=== PATIENT | male | born 1945 | race Caucasian/White ===

== ENCOUNTER 2017-05-20 06:00 | Day surgery (SDC) | payer MEDICARE ==
[2017-05-19 09:27] VITALS: BMI 31.9
[~2017-05-20 06:00] MED LIST: LACTATED RINGERS 1,000 ML IV SCH
[2017-05-20] MEDS: PHENYLEPHRINE 10% OPHTH DROPS 5 ML BTL OP ONE ×2 (06:25→06:33)
[2017-05-20 06:28] VITALS: RESP 16; TEMP 97
[2017-05-20] MEDS: CYCLOPENTOLATE 1% OPHTH SOLN 2 ML BTL OP ONE ×3 (06:28→06:45)
[2017-05-20] MEDS: KETOROLAC 0.5% OPHTH DROPS 5 ML BTL OP ONE ×3 (06:30→06:47)
[2017-05-20 06:39] LABS: Glucose,Whole Blood 144 mg/dL (75-99)
[2017-05-20] MEDS ORDERED: LIDOCAINE 1% 20 ML VIAL (10MG/ML) FOR IV START INTRADERMA ONE ×2 (06:41)
[2017-05-20] MEDS ORDERED: PROPOFOL 10 MG/ML 20 ML VIAL IV ONE (07:47)
[2017-05-20] MEDS ORDERED: BALANCED SALT IRRIG SOLN COMB2 15 ML IRRIG.SOLN INTRAOCULA ONE (07:48)
[2017-05-20] MEDS ORDERED: HYALURONATE SODIUM INTRAOCULAR 1 EACH SYRINGE (10MG/ML) INTRAOCULA ONE (07:49)
[2017-05-20] MEDS ORDERED: EPINEPHrine (PF) 0.5 ML in BALANCED SALT IRRIG SOLN COMB2 500 ML IRRIGATION ONE (07:50)
--- NOTE | 2017-05-20 08:18 | P.OP ---
Date of Procedure: 05/20/17 Procedure(s) Performed: PREOPERATIVE DIAGNOSIS: Cataract, left eye. POSTOPERATIVE DIAGNOSIS: Cataract, left eye. OPERATION: Phacoemulsification cataract, left eye. DESCRIPTION OF PROCEDURE: The patient was taken to the preoperative holding area. Intravenous Propofol was given so as to bring about adequate sedation. The following mixture was given for local anesthesia: 5 mL of 2% lidocaine, 5 mL of 0.75% Marcaine, and 1 mL of Wydase. Approximately 4 mL was injected in the retrobulbar space of the surgical eye. Additional 1 mL was then directed to the temporal area of the surgical eye. This was performed to allow adequate neurological block of the facial muscles. The patient was revived and then taken into the operative room. The patient was prepped and draped in the usual sterile manner for the operative eye. A lid speculum was put into position. The conjunctiva was resected back from the limbus in the 12 o'clock position. Bleeding was controlled with electrocautery. A #69 blade was then used and a half-thickness scleral incision approximately 1-mm posterior to the limbus was made on bare sclera. This was shelved in the clear cornea using a crescent knife. Next a 15-degree blade was used to make a stab incision at the 3 o' clock position at the corneolimbal interface. Keratome blade was then used and the superior wound was extended into the anterior chamber. Viscoelastic was injected into the anterior chamber and to maintain its form. Next, a cystotome was used and a continuous anterior capsulotomy was made without difficulty. Hydrodissection using a blunt cannula and BSS was performed. Phaco probe was then employed and a groove extending from 12 to 6 o'clock in the lens was created. A Leon wand was used through the stab incision so as to perform a divide and conquer technique. Next an irrigation aspiration probe was utilized and any residual cortex was removed from the eye. Again, viscoelastic was injected into the anterior chamber. An Domenic posterior chamber lens implant was placed in the cartridge and injected into the anterior chamber without difficulty. The [employer] Technologies[employer] hook was utilized to spin the lens into position and this was again performed without any difficulty. The irrigation and aspiration probe was again employed and any residual viscoelastic was removed from the eye. Then BSS was injected into the limbal stab incision and the anterior chamber re-inflated. The conjunctiva was reapproximated using electrocautery. One drop of 0.25% Timoptic was placed over the corneal along with TobraDex ophthalmic ointment. Two sterile patches and a Olivier eye shield were taped into position. The patient was transported to the recovery room in stable condition. Pathology: none sent Condition: stable Disposition: same day
[2017-05-20 08:21] LABS: Glucose,Whole Blood 137 mg/dL (75-99)
[2017-05-20 08:30] VITALS: BP 154/83; PULSE 56
[2017-05-20] MEDS ORDERED: TIMOLOL 0.5% OPHTH SOLN (PF) 0.2 ML DROPERETTE OP ONE (23:00)
[2017-05-20] MEDS ORDERED: GENTAMICIN/PREDNISOL AC OPHTH OINT 3.5GM OPHTHALMIC ONE (23:00)
[2017-05-20] MEDS ORDERED: BUPIVACAINE (PF) 0.75% 5 ML, LIDOCAINE 4% (PF) 5 ML, HYALURONIDASE, HUMAN RECOMB 150 UNIT MISCELLANE ONE ×3 (23:00)
== END 2017-05-20 08:51 | disposition home or self-care (01) ==
LOC: OR 06:00
PROVIDERS: ATTEND Ophthalmology
DX: E11.36 Type 2 diabetes mellitus with diabetic cataract (principal); I10 Essential (primary) hypertension; M06.9 Rheumatoid arthritis, unspecified; Z79.82 Long term (current) use of aspirin; Z79.84 Long term (current) use of oral hypoglycemic drugs; Z79.899 Other long term (current) drug therapy; Z83.3 Family history of diabetes mellitus
CPT/HCPCS: 66984; V2632; J2001; J3470; J0171; J2704

== ENCOUNTER → 2017-06-20 | Outpatient (CLI) | payer MEDICARE ==
--- NOTE | 2017-06-21 21:26 | MR ---
EXAMINATION TYPE: MR lumbar spine wo con DATE OF EXAM: 06/21/2017 COMPARISON: NONE HISTORY: Patient has history of low back pain for 2 years. M 53.16. TECHNIQUE: Multiplanar, multisequence images of the lumbar spine were acquired. The marrow signal is satisfactory but slightly heterogeneous. There is mild desiccation of all of the intervertebral discs. The conus ends at L1 which is normal. Vertebral body height and alignment are maintained. Lumbar segments are intact. No paraspinal masses are identified. Visualized soft tissue structures demonstrate an infrarenal abdominal aortic aneurysm which is not co mpletely visualized, and measures at least 3.3 cm in AP dimension. T12-L1: No central canal stenosis or neural foraminal narrowing is identified. L1-L2: There is minimal posterior disc bulge. No central canal stenosis or neural foraminal narrowing is identified. L2-L3: There is posterior disc bulge as well as endplate spurring. There is ligamentum flavum hypertr ophy. There is minimal facet hypertrophy. No central canal stenosis or foraminal narrowing is identif ied. L3-L4: There is posterior disc bulge. There is extensive ligamentum flavum hypertrophy. There is also facet hypertrophy. There is moderate right and minimal left neural foraminal narrowing. There is no central canal stenosis. L4-L5: There is ligamentum flavum as well as facet hypertrophy. There is impression upon the exiting right L4 nerve root. There is mild left neural foraminal narrowing. L5-S1: There is a posterior disc bulge with a superimposed central herniation. There is ligamentum fl avum hypertrophy as well as facet hypertrophy. There is impingement of the exiting left L5 nerve root . There is moderate foraminal narrowing on the right. IMPRESSION: Multilevel spondylosis is noted with several levels with foraminal narrowing.
== END | disposition home or self-care (01) ==
LOC: RADMRIMAIN 17:10
PROVIDERS: ATTEND Internal Medicine Rheumatology
DX: M99.73 Connective tissue and disc stenosis of intervertebral foramina of lumbar region (principal); M47.26 Other spondylosis with radiculopathy, lumbar region
CPT/HCPCS: 72148

== ENCOUNTER → 2017-07-03 | Outpatient (CLI) | payer MEDICARE ==
[2017-07-03 13:26] LABS: Blood Urea Nitrogen 21 mg/dL (9-20)
--- NOTE | 2017-07-04 08:40 | CT ---
EXAMINATION TYPE: CT angio abdomen DATE OF EXAM: 07/03/2017 COMPARISON: 06/17/2012 HISTORY: Follow up Abdominal aneurysm. CT DLP: 1480.5 mGycm, Automated Exposure Control for Dose Reduction was Utilized. CONTRAST: CT scan of the abdomen and pelvis is performed with oral and without and with IV Contrast, patient in jected with 80 mL of Visipaque 320. FINDINGS: LUNG BASES: Minimal lingular subsegmental atelectasis is appreciated. Prominent but nonenlarged media stinal lymph nodes are seen measuring up to 9 mm in the left hilum. Moderate three-vessel coronary ar regina calcifications are noted. LIVER/GB: Evaluation is slightly limited given the angiographic phase, however no arterial enhancing hepatic masses are seen. Hepatic parenchyma enhances homogeneously without intrahepatic biliary ducta l dilatation. Gallbladder is unremarkable without cholelithiasis. PANCREAS: No ductal dilatation is present. SPLEEN: No significant abnormality is seen. No splenomegaly. ADRENALS: There is a low-density 2.3 cm left adrenal gland benign lipid rich adenoma that measures a verage Hounsfield unit of 5 on the precontrast images. This is similar in comparison to the prior exa m of 2011. The right adrenal gland is unremarkable. KIDNEYS: Kidneys enhance symmetrically. No nephrolithiasis on the unenhanced images. BOWEL: Small descending duodenal diverticulum is present. Bowel is nondilated. Scattered colonic dive rticula are seen without pericolonic fat stranding. Moderate amount retained stool seen throughout th e colon. Appendix is retrocecal, air-filled and within normal limits of size. PROSTATE/SEMINAL VESICLES: Prostate gland is enlarged measuring 5.0 cm in transverse dimension. LYMPH NODES: No greater than 1cm abdominal or pelvic lymph nodes are appreciated. Solitary prominent 1.0 cm short axis peripancreatic lymph node is seen on series 6 image 29. OSSEOUS STRUCTURES: Well-circumscribed punctate right femoral head probable bone island is seen. Mode rate multilevel degenerative changes of the thoracic spine are noted. VASCULATURE: There is no evidence of intramural hematoma on the unenhanced images. There is an infrar enal abdominal aortic aneurysm that is fusiform originating approximately 3.0 cm from the origin of t he right renal artery (the lowest renal artery). Incidental note is made of 2 right renal arteries an d a singular left renal artery. This infrarenal aneurysm measures up to 4.8 x 4.6 x 5.7 cm in transve rse by anterior posterior by craniocaudal dimension and does not extend into the common iliac arterie s. Slight ectasia of the right common iliac artery is seen as it measures 1.7 cm. The left common leanne ac artery measures 1.2 cm. Moderate calcific and noncalcific atheromatous plaquing is seen of the ent irety of the abdominal aorta and its branches. No evidence of occlusion or contrast extravasation. Th is measured 4.4 x 3.8 cm on the exam of 06/17/2012. The celiac artery, SMA, and GRAYSON are patent despit e noncalcific atheromatous plaquing at the origin of the GRAYSON and series 6 image 48. IMPRESSION: 1. Interval increase in size of infrarenal fusiform abdominal aortic aneurysm in comparison to the mo st recent exam of 2011. Current measurements are 4.8 x 4.6 x 5.7 cm with previous measurement of 4.4 x 3.8 cm. No evidence of rupture, contrast extravasation, occlusion, or intramural hematoma. 2. Enlarged prostate gland. 3. 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 4. Moderate three-vessel coronary artery calcifications, a marker for coronary artery disease. 5. Sigmoid diverticulosis without evidence of diverticulitis.
== END | disposition home or self-care (01) ==
LOC: RADCTMAIN 12:48
PROVIDERS: ATTEND Thoracic Surgery (Cardiothoracic Vascular Surgery)
DX: I71.4 Abdominal aortic aneurysm, without rupture (principal); N40.0 Benign prostatic hyperplasia without lower urinary tract symptoms; K57.30 Diverticulosis of large intestine without perforation or abscess without bleeding; D35.02 Benign neoplasm of left adrenal gland
CPT/HCPCS: 82565; 84520; 74175; 36415; Q9967

== ENCOUNTER 2017-07-05 18:32 | Inpatient (IN) | payer MEDICARE ==
[2017-07-05] MEDS ORDERED: ONDANSETRON 4 MG/2 ML VIAL IVP STA (18:46)
[2017-07-05] MEDS ORDERED: ACETAMINOPHEN IV (For NPO) 1,000 MG in EMPTY BAG 1 BAG IVPB STA (18:53)
[2017-07-05] MEDS: SODIUM CHLORIDE 0.9% 500 ML IV SCH ×3 (18:58→21:00)
[2017-07-05 19:09] LABS: ALT 56 U/L (21-72); AST 38 U/L (17-59); Albumin 4.6 g/dL (3.5-5.0); Alkaline Phosphatase 73 U/L (38-126); Anion Gap 15 mmol/L; Blood Urea Nitrogen 18 mg/dL (9-20); Carbon Dioxide 21 mmol/L (22-30); Chloride 102 mmol/L (98-107); Glucose 210 mg/dL (74-99); Potassium 4.1 mmol/L (3.5-5.1); Sodium 138 mmol/L (137-145); Total Bilirubin 1.2 mg/dL (0.2-1.3); Total Protein 8.5 g/dL (6.3-8.2)
--- NOTE | 2017-07-05 19:10 | ED ---
Fever HPI - General Chief Complaint: Fever Stated Complaint: weakness Time Seen by Provider: 07/05/17 18:36 Source: patient, family, RN notes reviewed Mode of arrival: wheelchair Limitations: no limitations - History of Present Illness Initial Comments: This a 72-year-old male presents emergency Department chief complaint of fever chills nausea vomiting weakness. Patient states he is had a slight head cold last few days but today developed severe fatigue and weakness. He states that his been vomiting and having some diarrhea. Family states that is very lethargic and is not acting appropriately. Family states that they did not know he had a fever. Current temp 104 he has not had any Tylenol or Motrin. Patient does admit to some chest tightness and shortness of breath. Patient has a history of hypertension, diabetes. Patient has not checked his blood sugar recently. Patient also complains of epistaxis states that his been having on and off bleeding from his left nostril this was atraumatic - Related Data Home Medications Medication Instructions Recorded Confirmed Aspirin [Adult Low Dose Aspirin EC] 81 mg PO DAILY 05/19/17 07/05/17 Atenolol [Tenormin] 50 mg PO BID 05/19/17 07/05/17 Atorvastatin [Lipitor] 20 mg PO QAM 05/19/17 07/05/17 Etanercept [Enbrel] 50 mg SQ TU 05/19/17 07/05/17 Gabapentin [Neurontin] 300 mg PO QID 05/19/17 07/05/17 Insulin Glargine [Lantus] 20 unit SQ HS 05/19/17 07/05/17 Lisinopril [Zestril] 20 mg PO DAILY 05/19/17 07/05/17 metFORMIN HCL [Glucophage] 500 mg PO TID 05/19/17 07/05/17 glipiZIDE [Glucotrol] 5 mg PO AC-BRKFST 06/04/17 07/05/17 Allergies Allergy/AdvReac Type Severity Reaction Status Date / Time No Known Allergies Allergy Verified 07/05/17 18:57 Review of Systems ROS Statement: Those systems with pertinent positive or pertinent negative responses have been documented in the HPI. ROS Other: All systems not noted in ROS Statement are negative. Past Medical History Past Medical History: Diabetes Mellitus, Hyperlipidemia, Hypertension, Rheumatoid Arthritis (RA) Additional Past Medical History / Comment(s): aortic aneurysm History of Any Multi-Drug Resistant Organisms: None Reported Additional Past Surgical History / Comment(s): hemorrhoidectomy, surgeries for sebaceous cysts Past Anesthesia/Blood Transfusion Reactions: Motion Sickness Past Psychological History: No Psychological Hx Reported Smoking Status: Former smoker Past Alcohol Use History: None Reported Past Drug Use History: None Reported - Past Family History Son(s) Family Medical History: Cancer Additional Family Medical History / Comment(s): brain cancer Brother(s) Family Medical History: Cancer Additional Family Medical History / Comment(s): colon cancer Sister(s) Family Medical History: Cancer General Exam Limitations: no limitations General appearance: alert, in no apparent distress Head exam: Present: atraumatic, normocephalic, normal inspection Eye exam: Present: normal appearance, PERRL, EOMI. Absent: scleral icterus, conjunctival injection, periorbital swelling ENT exam: Present: normal oropharynx, mucous membranes moist, TM's normal bilaterally, normal external ear exam, other (Dry blood noted in the left nostril) Neck exam: Present: normal inspection, full ROM. Absent: tenderness, meningismus, lymphadenopathy Respiratory exam: Present: normal lung sounds bilaterally. Absent: respiratory distress, wheezes, rales, rhonchi, stridor Cardiovascular Exam: Present: normal rhythm, tachycardia, normal heart sounds. Absent: systolic murmur, diastolic murmur, rubs, gallop, clicks GI/Abdominal exam: Present: soft, normal bowel sounds. Absent: distended, tenderness, guarding, rebound, rigid Neurological exam: Present: alert, oriented X3, CN II-XII intact Skin exam: Present: warm, dry, intact, normal color. Absent: rash Course Vital Signs 07/05/17 07/05/17 07/05/17 18:44 19:36 19:48 Temperature 104.6 F H 103.1 F H Pulse Rate 109 H 94 Respiratory 20 16 Rate Blood Pressure 219/103 187/77 178/72 O2 Sat by Pulse 91 L 94 L Oximetry Medical Decision Making - Medical Decision Making 72-year-old male presented for fever, weakness. Patient is improved after IV fluids, antiemetics and Tylenol. Patient had fever 104, elevated lactic acid most likely related to dehydration patient was treated with Levaquin at this time for pneumonia. Patient will be admitted for repeat enzymes - Lab Data Result diagrams: 07/05/17 18:45 07/05/17 18:45 Lab Results 07/05/17 07/05/17 07/05/17 Range/Units 18:45 18:45 18:45 WBC 11.5 H (3.8-10.6) k/uL RBC 4.52 (4.30-5.90) m/uL Hgb 15.5 (13.0-17.5) gm/dL Hct 44.9 (39.0-53.0) % MCV 99.3 (80.0-100.0) fL MCH 34.2 (25.0-35.0) pg MCHC 34.5 (31.0-37.0) g/dL RDW 13.4 (11.5-15.5) % Plt Count 119 L (150-450) k/uL Neutrophils % (Manual) 82 % Band Neutrophils % 3 % Lymphocytes % (Manual) 7 % Monocytes % (Manual) 8 % Neutrophils # (Manual) 9.70 H (1.3-7.7) k/uL Lymphocytes # (Manual) 0.81 L (1.0-4.8) k/uL Monocytes # (Manual) 0.92 (0-1.0) k/uL Nucleated RBCs 0 (0-0) /100 WBC Manual Slide Review Performed RBC Morphology Normal PT (9.0-12.0) sec INR (<1.2) APTT (22.0-30.0) sec Sodium 138 (137-145) mmol/L Potassium 4.1 (3.5-5.1) mmol/L Chloride 102 (98-107) mmol/L Carbon Dioxide 21 L (22-30) mmol/L Anion Gap 15 mmol/L BUN 18 (9-20) mg/dL Creatinine 1.10 (0.66-1.25) mg/dL Est GFR (MDRD) Af Amer >60 (>60 ml/min/1.73 sqM) Est GFR (MDRD) Non-Af >60 (>60 ml/min/1.73 sqM) Glucose 210 H (74-99) mg/dL Plasma Lactic Acid Hernán (0.7-2.0) mmol/L Calcium 10.0 (8.4-10.2) mg/dL Total Bilirubin 1.2 (0.2-1.3) mg/dL AST 38 (17-59) U/L ALT 56 (21-72) U/L Alkaline Phosphatase 73 (38-126) U/L Total Creatine Kinase 97 (55-170) U/L CK-MB (CK-2) 1.3 (0.0-2.4) ng/mL CK-MB (CK-2) Rel Index 1.3 Troponin I 0.047 H* (0.000-0.034) ng/mL Total Protein 8.5 H (6.3-8.2) g/dL Albumin 4.6 (3.5-5.0) g/dL Urine Color Urine Appearance (Clear) Urine pH (5.0-8.0) Ur Specific [place] (1.001-1.035) Urine Protein (Negative) Urine Glucose (UA) (Negative) Urine Ketones (Negative) Urine Blood (Negative) Urine Nitrite (Negative) Urine Bilirubin (Negative) Urine Urobilinogen (<2.0) mg/dL Ur Leukocyte Esterase (Negative) Urine RBC (0-5) /hpf Urine WBC (0-5) /hpf Influenza Type A RNA (Not Detectd) Influenza Type B (PCR) (Not Detectd) 07/05/17 07/05/17 07/05/17 Range/Units 18:45 18:45 18:45 WBC (3.8-10.6) k/uL RBC (4.30-5.90) m/uL Hgb (13.0-17.5) gm/dL Hct (39.0-53.0) % MCV (80.0-100.0) fL MCH (25.0-35.0) pg MCHC (31.0-37.0) g/dL RDW (11.5-15.5) % Plt Count (150-450) k/uL Neutrophils % (Manual) % Band Neutrophils % % Lymphocytes % (Manual) % Monocytes % (Manual) % Neutrophils # (Manual) (1.3-7.7) k/uL Lymphocytes # (Manual) (1.0-4.8) k/uL Monocytes # (Manual) (0-1.0) k/uL Nucleated RBCs (0-0) /100 WBC Manual Slide Review RBC Morphology PT 10.8 (9.0-12.0) sec INR 1.1 (<1.2) APTT 23.8 (22.0-30.0) sec Sodium (137-145) mmol/L Potassium (3.5-5.1) mmol/L Chloride (98-107) mmol/L Carbon Dioxide (22-30) mmol/L Anion Gap mmol/L BUN (9-20) mg/dL Creatinine (0.66-1.25) mg/dL Est GFR (MDRD) Af Amer (>60 ml/min/1.73 sqM) Est GFR (MDRD) Non-Af (>60 ml/min/1.73 sqM) Glucose (74-99) mg/dL Plasma Lactic Acid Hernán 3.3 H* (0.7-2.0) mmol/L Calcium (8.4-10.2) mg/dL Total Bilirubin (0.2-1.3) mg/dL AST (17-59) U/L ALT (21-72) U/L Alkaline Phosphatase (38-126) U/L Total Creatine Kinase (55-170) U/L CK-MB (CK-2) (0.0-2.4) ng/mL CK-MB (CK-2) Rel Index Troponin I (0.000-0.034) ng/mL Total Protein (6.3-8.2) g/dL Albumin (3.5-5.0) g/dL Urine Color Urine Appearance (Clear) Urine pH (5.0-8.0) Ur Specific [place] (1.001-1.035) Urine Protein (Negative) Urine Glucose (UA) (Negative) Urine Ketones (Negative) Urine Blood (Negative) Urine Nitrite (Negative) Urine Bilirubin (Negative) Urine Urobilinogen (<2.0) mg/dL Ur Leukocyte Esterase (Negative) Urine RBC (0-5) /hpf Urine WBC (0-5) /hpf Influenza Type A RNA Not Detected (Not Detectd) Influenza Type B (PCR) Not Detected (Not Detectd) 07/05/17 Range/Units 19:00 WBC (3.8-10.6) k/uL RBC (4.30-5.90) m/uL Hgb (13.0-17.5) gm/dL Hct (39.0-53.0) % MCV (80.0-100.0) fL MCH (25.0-35.0) pg MCHC (31.0-37.0) g/dL RDW (11.5-15.5) % Plt Count (150-450) k/uL Neutrophils % (Manual) % Band Neutrophils % % Lymphocytes % (Manual) % Monocytes % (Manual) % Neutrophils # (Manual) (1.3-7.7) k/uL Lymphocytes # (Manual) (1.0-4.8) k/uL Monocytes # (Manual) (0-1.0) k/uL Nucleated RBCs (0-0) /100 WBC Manual Slide Review RBC Morphology PT (9.0-12.0) sec INR (<1.2) APTT (22.0-30.0) sec Sodium (137-145) mmol/L Potassium (3.5-5.1) mmol/L Chloride (98-107) mmol/L Carbon Dioxide (22-30) mmol/L Anion Gap mmol/L BUN (9-20) mg/dL Creatinine (0.66-1.25) mg/dL Est GFR (MDRD) Af Amer (>60 ml/min/1.73 sqM) Est GFR (MDRD) Non-Af (>60 ml/min/1.73 sqM) Glucose (74-99) mg/dL Plasma Lactic Acid Hernán (0.7-2.0) mmol/L Calcium (8.4-10.2) mg/dL Total Bilirubin (0.2-1.3) mg/dL AST (17-59) U/L ALT (21-72) U/L Alkaline Phosphatase (38-126) U/L Total Creatine Kinase (55-170) U/L CK-MB (CK-2) (0.0-2.4) ng/mL CK-MB (CK-2) Rel Index Troponin I (0.000-0.034) ng/mL Total Protein (6.3-8.2) g/dL Albumin (3.5-5.0) g/dL Urine Color Yellow Urine Appearance Clear (Clear) Urine pH 6.5 (5.0-8.0) Ur Specific [place] 1.014 (1.001-1.035) Urine Protein 2+ H (Negative) Urine Glucose (UA) 3+ H (Negative) Urine Ketones Trace H (Negative) Urine Blood Small H (Negative) Urine Nitrite Negative (Negative) Urine Bilirubin Negative (Negative) Urine Urobilinogen <2.0 (<2.0) mg/dL Ur Leukocyte Esterase Negative (Negative) Urine RBC 3 (0-5) /hpf Urine WBC <1 (0-5) /hpf Influenza Type A RNA (Not Detectd) Influenza Type B (PCR) (Not Detectd) Disposition Clinical Impression: Pneumonia, Fever, Nausea & vomiting, Weakness, Elevated troponin Disposition: ADMITTED IP TO THIS HOSP Condition: Fair Referrals: Karl Pike DO [Primary Care Provider] - 1-2 days
[2017-07-05 19:11] LABS: Appearance,Urine Clear (Clear); Bilirubin,Urine Negative (Negative); Blood,Urine Small (Negative); Color,Urine Yellow; Glucose,Urine (UA) 3+ (Negative); Ketones,Urine Trace (Negative); Leukocyte Esterase,Urine Negative (Negative); Nitrite,Urine Negative (Negative); PH, Urine 6.5 (5.0-8.0); Protein,Urine 2+ (Negative); RBC,Urine 3 /hpf (0-5); Specific Gravity,Urine 1.014 (1.001-1.035); Urobilinogen,Urine <2.0 mg/dL (<2.0); WBC,Urine <1 /hpf (0-5)
[2017-07-05] MEDS ORDERED: hydrALAZINE HCL 20 MG/ML 1 ML VIAL IVP STA (19:14)
[2017-07-05 19:16] LABS: INR 1.1 (<1.2); Partial Thromboplastin Time 23.8 sec (22.0-30.0); Prothrombin Time 10.8 sec (9.0-12.0)
[2017-07-05 19:18] LABS: HCT 44.9 % (39.0-53.0); HGB 15.5 gm/dL (13.0-17.5); MCH 34.2 pg (25.0-35.0); MCHC 34.5 g/dL (31.0-37.0); MCV 99.3 fL (80.0-100.0); Mean Platelet Volume 7.8; Platelet Count 119 k/uL (150-450); RBC 4.52 m/uL (4.30-5.90); RDW 13.4 % (11.5-15.5); WBC 11.5 k/uL (3.8-10.6)
[2017-07-05 19:25] LABS: Creatine Kinase MB 1.3 ng/mL (0.0-2.4)
[2017-07-05 19:26] LABS: Troponin I 0.047 ng/mL (0.000-0.034)
[2017-07-05 19:31] LABS: Band Neutrophils % 3 %; Lymphocytes # (M) 0.81 k/uL (1.0-4.8); Monocytes # (M) 0.92 k/uL (0-1.0); Neutrophils % (M) 82 %; Nucleated Red Blood Cells 0 /100 WBC (0-0); Total Cells Counted 100
--- NOTE | 2017-07-05 19:36 | XR ---
EXAMINATION TYPE: XR chest 2V DATE OF EXAM: 07/05/2017 COMPARISON: NONE HISTORY: Weakness and vomiting. TECHNIQUE: Frontal and lateral views of the chest are obtained. FINDINGS: There is chronic parenchymal change without suspicious focal air space opacity, pleural ef fusion, or pneumothorax seen. There is suspected pleural thickening lower left lateral chest wall Th e cardiac silhouette size is enlarged. The osseous structures are intact. IMPRESSION: Chronic parenchymal change and cardiomegaly without acute pulmonary process.
--- NOTE | 2017-07-05 19:38 | XR ---
EXAMINATION TYPE: XR KUB DATE OF EXAM: 07/05/2017 7:33 PM CLINICAL HISTORY: Vomiting and weakness with diarrhea TECHNIQUE: Two Upright KUB images of the abdomen are obtained. COMPARISON: CTA of the abdomen from 2 days ago. FINDINGS: Scattered gas is seen in non-distended small bowel loops. Gas and fecal material is seen in non-distended colon and rectum. There is no visceromegaly, pneumoperitoneum, or abnormal calcificati on appreciated. Moderate joint space loss in both hips is redemonstrated. IMPRESSION: Overall nonobstructive bowel gas pattern remains present.
[2017-07-05] MEDS ORDERED: LEVOFLOXACIN 750MG-D5W PMX 750 MG in DEXTROSE/WATER 1 150ML.BAG IVPB STA (19:56)
[2017-07-05] MEDS ORDERED: PNEUMONIA PROTOCOL UTILIZED 1 EACH MISC PO PRN (19:58)
[2017-07-05] MEDS ORDERED: NITROGLYCERIN SL TABS 0.4 MG TAB SUBLINGUAL PRN (19:58)
[2017-07-05] MEDS: SODIUM CHLORIDE 0.9% 1,000 ML IV SCH (20:14)
[2017-07-05] MEDS ORDERED: PIPERACILLIN-TAZOBACTAM 3.375 GM in DEXTROSE/WATER 1 50ML.BAG IVPB STA (20:52)
[2017-07-05] MEDS ORDERED: HYDROcodone/APAP 5-325MG 1 EACH TAB PO STA (21:53)
[2017-07-05] MEDS ORDERED: MORPHINE SULFATE 5 MG/ML SYRINGE IVP STA (22:25)
[2017-07-05 23:26] LABS: Hemoglobin A1C 7.2 % (4.0-6.0)
[2017-07-05] MEDS: metFORMIN 500 MG TAB PO SCH (23:30)
[2017-07-05] MEDS: INSULIN DETEMIR 100 UNIT/ML 10 ML VIAL SQ SCH (23:30)
[2017-07-05 23:39] LABS: Glucose,Whole Blood 178 mg/dL (75-99)
[2017-07-06 02:05] LABS: Creatine Kinase MB 2.3 ng/mL (0.0-2.4)
[2017-07-06 02:06] LABS: Troponin I 0.143 ng/mL (0.000-0.034)
--- NOTE | 2017-07-06 06:44 | XR ---
EXAMINATION TYPE: XR chest 2V DATE OF EXAM: 07/06/2017 HISTORY: pneumonia. REFERENCE: Previous study dated 07/05/2017. FINDINGS: The lungs are overinflated. The heart is enlarged. The lungs are clear. Pleural spaces are clear. IMPRESSION: 1. COPD. 2. CARDIOMEGALY.
[2017-07-06 07:39] LABS: Cholesterol 94 mg/dL (<200); HDL Cholesterol 27 mg/dL (40-60); LDL Cholesterol,Calculated 47 mg/dL (0-99); Triglycerides 102 mg/dL (<150)
[2017-07-06 07:55] LABS: Troponin I 0.344 ng/mL (0.000-0.034)
[2017-07-06] MEDS: GABAPENTIN 300 MG CAP PO SCH ×4 (08:25→21:06)
[2017-07-06] MEDS: SODIUM CHLORIDE 0.9% 1,000 ML IV SCH ×2 (08:25→18:38)
[2017-07-06] MEDS: ASPIRIN 81 MG PO SCH (08:25)
[2017-07-06] MEDS: ATENOLOL 50 MG TAB PO SCH ×2 (08:26→21:06)
[2017-07-06] MEDS: metFORMIN 500 MG TAB PO SCH ×3 (08:26→21:06)
[2017-07-06] MEDS: LISINOPRIL 20 MG TAB PO SCH (08:27)
[2017-07-06] MEDS: ENOXAPARIN 40 MG/0.4 ML SYRINGE SQ SCH (08:27)
[2017-07-06] MEDS: ATORVASTATIN 20 MG TAB PO SCH (08:27)
[2017-07-06] MEDS: PIPERACILLIN-TAZOBACTAM 3.375 GM in DEXTROSE/WATER 1 50ML.BAG IVPB SCH ×2 (08:32→18:33)
[2017-07-06 08:51] LABS: Glucose,Whole Blood 154 mg/dL (75-99)
[2017-07-06] MEDS ORDERED: ASPIRIN 325 MG TAB PO SCH (09:00)
[2017-07-06] MEDS ORDERED: LEVOFLOXACIN 750MG-D5W PMX 750 MG in DEXTROSE/WATER 1 150ML.BAG IVPB SCH (09:00)
[2017-07-06] MEDS: ACETAMINOPHEN TAB 500 MG TAB PO PRN ×2 (14:01→21:06)
[2017-07-06 15:51] VITALS: BMI 31.7
[2017-07-06] MEDS ORDERED: VANCOMYCIN IV PER PHARMACY 1 EACH MISC MISCELLANE PRN (18:42)
--- NOTE | 2017-07-06 19:59 | CT ---
EXAMINATION TYPE: CT lumbar spine wo con DATE OF EXAM: 07/06/2017 COMPARISON: MRI lumbar spine June 20, 2017 HISTORY: Patient complains of RUQ and back pain. CT DLP: 1400.9 mGycm Automated exposure control for dose reduction was used. FINDINGS: There are 5 lumbar type vertebra identified. Lumbar spine redemonstrate straightened alignment withou t evidence of acute fracture or dislocation. Vertebral body heights are maintained. There is mild mul tilevel disc space narrowing. There is more moderate multilevel anterior and lateral spurring. No lar ge posterior disc herniations are seen on sagittal images. Please refer to recent lumbar spine MRI for detailed axial evaluation as MRI is more sensitive. No si gnificant change is noted from MRI. Aneurysmal change to abdominal aorta is noted without significant change from recent CTA abdomen [place] [facility] 2017. Please refer to that report. There is partial visualization of diverticula in the sigmoi d colon. IMPRESSION: NO ACUTE FRACTURE OR DISLOCATION IN THE LUMBAR SPINE. NO SIGNIFICANT CHANGE FROM RECENT MRI.
[2017-07-06] MEDS ORDERED: VANCOMYCIN 1,750 MG in SODIUM CHLORIDE 0.9% 250 ML IVPB ONE (20:00)
[2017-07-06 20:58] LABS: Glucose,Whole Blood 100 mg/dL (75-99)
[2017-07-06] MEDS: INSULIN DETEMIR 100 UNIT/ML 10 ML VIAL SQ SCH (21:08)
[2017-07-06] MEDS: IPRATROPIUM-ALBUTEROL 3 ML NEB INHALATION PRN (21:10)
--- NOTE | 2017-07-06 23:33 | HP ---
HISTORY AND PHYSICAL DATE OF ADMISSION: 07/05/17. PRESENTING COMPLAINT: Fever, chills. HISTORY OF PRESENTING COMPLAINT: This is a very pleasant 72-year-old patient of Dr. Pike. The patient's and daughter at the bedside. Chronic stable medical conditions include diabetes, hyperlipidemia, hypertension, rheumatoid arthritis, and AAA. The latter is being followed by Dr. Gutierrez. The patient had a CT scan 3 days ago showing the AAA to be up to 5 cm per family. The patient 3-4 days ago started having chills. Got a cough, coughing some red sputum. Did also vomit. The patient also became delirious, weak, tired, took a fall at home. The patient has got chronic lower back arthritis and pain has flared up. There is no urinary frequency or burning in the urine. The patient does feel weak and tired. Appetite has gone down. The patient had a fever 104 when he presented to the ER. REVIEW OF SYSTEMS: Constitutional: Weak, tired, febrile. HEENT none. Respiratory as above including cough. Cardiovascular none. Gastrointestinal none. Genitourinary none. Musculoskeletal: Chronic lower back pain with some flare up. Dermatological, hematologic and lymphatic none. Psychiatry: Delirious at home. Neurological none. PAST MEDICAL HISTORY: Diabetes mellitus type 2, hypertension, hyperlipidemia, rheumatoid arthritis, abdominal aortic aneurysm. PAST SURGICAL HISTORY: Hemorrhoidectomy surgery . SOCIAL HISTORY: The patient smoked a pack a day for 40 years, stopped 22 years ago. . 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 FAMILY HISTORY: Brain cancer. HOME MEDICATIONS: 1. Glucophage 500 mg p.o. t.i.d. 2. Glucotrol 5 mg with breakfast. 3. Zestril 20 mg p.o. daily. 4. Lantus 20 units subcu q.h.s. 5. Neurontin 300 mg p.o. q.i.d. 6. Enbrel 50 mg subcu on Tuesdays. 7. Lipitor 20 mg p.o. daily. 8. Tenormin 50 mg p.o. b.i.d. 9. Aspirin 81 mg p.o. daily. PHYSICAL EXAMINATION: GENERAL APPEARANCE: Well built, BMI 31.7, sitting up, tired appearing. EYES: Pupils equal. Conjunctivae are normal. HEENT external appearance of nose and ears normal. Oral cavity normal. Neck JVD not raised. Mass not palpable. Respiratory effort: Increased. Lungs diminished breath sounds. Cardiovascular: 1st and 2nd sounds normal. No edema. Abdomen soft, minimal right-sided tenderness. No guarding. No rigidity. Lymphatics: No lymph nodes palpable in neck or axillae. PSYCHIATRY: Patient able to answer simple questions but slightly off. Musculoskeletal: Patient got some tenderness over the lower lumbar spine, though no exquisite tenderness. Patient is noted to sit up on his own with some help at the edge of the bed. Neurological: Pupils equal. Cranial nerves grossly intact. Power and sensation grossly intact. INVESTIGATIONS: White count 11.5, hemoglobin 15.5, platelets 119, potassium 4.1, BUN and creatinine is normal. Lactic acid 3.3. Troponin 0.047, 0.143. EKG shows right bundle branch block. Chest x-ray reviewed by me shows left lower lobe infiltrate. Influenza negative. UA negative for leukoesterase. ASSESSMENT: 1. This is a patient with 3-4 days of fever up to 104 in the ER. Causing sepsis, most likely the cause. Also having some coughing up a little bit of blood, likely from infection. I would also like to rule out diskitis because of some tenderness in the lumbar spine. 2. Diabetes mellitus type 2, chronically on insulin. 3. Hyperlipidemia. 4. Essential hypertension. 5. Chronic rheumatoid arthritis. 6. Abdominal aortic aneurysm with the latest measurement being 4.8 x 4.6 x 5.7 cm. 7. Sigmoid diverticulitis, asymptomatic. 8. Benign prostatic hypertrophy on CT scan. 9. Troponin leak, likely from underlying sepsis, not acute myocardial infarction. Patient has no cardiac symptoms. PLAN: Patient is started on IV Zosyn. Blood cultures were done. We will also add IV vancomycin. We will consult ID. Also Dr. Gutierrez from vascular will be consulted. Care was discussed with the patient and . The patient is also put on IV fluids. Home medications resumed. Accu-Cheks will be followed. Care was discussed in detail with the patient and family. Also do a CT scan of the lumbar spine to rule out any diskitis. MMODL / IJN: [id number] /
[2017-07-07] MEDS: PIPERACILLIN-TAZOBACTAM 3.375 GM in DEXTROSE/WATER 1 50ML.BAG IVPB SCH ×3 (00:30→15:32)
[2017-07-07] MEDS: SODIUM CHLORIDE 0.9% 1,000 ML IV SCH ×3 (01:51→22:24)
[2017-07-07 02:54] LABS: Glucose,Whole Blood 79 mg/dL (75-99)
[2017-07-07] MEDS: ACETAMINOPHEN TAB 500 MG TAB PO PRN ×2 (03:55→15:28)
[2017-07-07] MEDS: VANCOMYCIN 1,750 MG in SODIUM CHLORIDE 0.9% 250 ML IVPB SCH (05:52)
[2017-07-07 06:07] LABS: Glucose,Whole Blood 115 mg/dL (75-99)
[2017-07-07 07:07] LABS: Anion Gap 11 mmol/L; Blood Urea Nitrogen 22 mg/dL (9-20); Calcium 8.9 mg/dL (8.4-10.2); Carbon Dioxide 21 mmol/L (22-30); Chloride 105 mmol/L (98-107); Glucose 108 mg/dL (74-99); Potassium 4.1 mmol/L (3.5-5.1); Sodium 137 mmol/L (137-145)
[2017-07-07] MEDS: IPRATROPIUM-ALBUTEROL 3 ML NEB INHALATION PRN ×3 (07:45→16:11)
[2017-07-07 08:03] LABS: HCT 36.2 % (39.0-53.0); MCH 34.1 pg (25.0-35.0); MCHC 33.7 g/dL (31.0-37.0); MCV 101.1 fL (80.0-100.0); Macrocytosis Slight; Mean Platelet Volume 8.3; RBC 3.58 m/uL (4.30-5.90); RDW 13.9 % (11.5-15.5); WBC 8.9 k/uL (3.8-10.6)
[2017-07-07 08:16] LABS: HGB 12.2 gm/dL (13.0-17.5)
[2017-07-07 08:38] LABS: Creatine Kinase MB 2.8 ng/mL (0.0-2.4)
[2017-07-07] MEDS: GABAPENTIN 300 MG CAP PO SCH ×4 (08:46→22:24)
[2017-07-07] MEDS: metFORMIN 500 MG TAB PO SCH ×3 (08:46→22:13)
[2017-07-07] MEDS: ASPIRIN 81 MG PO SCH (08:46)
[2017-07-07] MEDS: ATORVASTATIN 20 MG TAB PO SCH (08:46)
[2017-07-07] MEDS: ATENOLOL 50 MG TAB PO SCH ×2 (08:46→22:13)
[2017-07-07] MEDS: LISINOPRIL 20 MG TAB PO SCH (08:46)
[2017-07-07] MEDS: ENOXAPARIN 40 MG/0.4 ML SYRINGE SQ SCH (08:46)
--- NOTE | 2017-07-07 10:21 | ECHOF ---
Referral Reason:elevated trop MEASUREMENTS -------- HEIGHT: 175.3 cm WEIGHT: 95.7 kg BP: 161/88 RVIDd: 3.6 cm (< 3.3) IVSd: 1.6 cm (0.6 - 1.1) LVIDd: 4.4 cm (3.9 - 5.3) LVPWd: 1.3 cm (0.6 - 1.1) IVSs: 1.9 cm LVIDs: 2.9 cm LVPWs: 2.2 cm LAESV Index (A-L): 23.78 ml/m Ao Diam: 3.7 cm (2.0 - 3.7) AV Cusp: 2.4 cm (1.5 - 2.6) LA Diam: 3.8 cm (2.7 - 3.8) MV EXCURSION: 18.048 mm (> 18.000) MV EF SLOPE: 97 mm/s (70 - 150) EPSS: 1.0 cm MV E Gustavo: 0.98 m/s MV DecT: 133 ms MV A Gustavo: 1.09 m/s MV E/A Ratio: 0.91 RAP: 5.00 mmHg RVSP: 9.56 mmHg FINDINGS -------- Sinus rhythm. This was a technically good study. The left ventricular size is normal. There is moderate concentric left ventricular hypertrophy. O verall left ventricular systolic function is normal with, an EF between 55 - 60 %. The right ventricle is mildly enlarged. The left atrium is normal in size. The right atrium is normal in size. Aortic valve is trileaflet and is mildly thickened. The mitral valve leaflets are mildly thickened. Mild mitral regurgitation is present. Mild tricuspid regurgitation present. The right ventricular systolic pressure, as measured by Doppl er, is 9.56mmHg. Pulmonic valve appears structurally normal. The aortic root size is normal. Normal inferior vena cava with normal inspiratory collapse consistent with estimated right atrial pre ssure of 5 mmHg. The pericardium is normal. CONCLUSIONS -------- 1. Sinus rhythm. 2. This was a technically good study. 3. The left ventricular size is normal. 4. There is moderate concentric left ventricular hypertrophy. 5. Overall left ventricular systolic function is normal with, an EF between 55 - 60 %. 6. The right ventricle is mildly enlarged. 7. The left atrium is normal in size. 8. The right atrium is normal in size. 9. Aortic valve is trileaflet and is mildly thickened. 10. The mitral valve leaflets are mildly thickened. 11. Mild mitral regurgitation is present. 12. Mild tricuspid regurgitation present. 13. The right ventricular systolic pressure, as measured by Doppler, is 9.56mmHg. 14. Pulmonic valve appears structurally normal. 15. The aortic root size is normal. 16. Normal inferior vena cava with normal inspiratory collapse consistent with estimated right atrial pressure of 5 mmHg. 17. The pericardium is normal. FILTER FILLER: Trina Meier RDCS
[2017-07-07 11:09] LABS: Band Neutrophils % 1 %; Monocytes # (M) 0.53 k/uL (0-1.0); Neutrophils % (M) 84 %; Nucleated Red Blood Cells 0 /100 WBC (0-0); Total Cells Counted 100
[2017-07-07 11:10] LABS: Platelet Count 79 k/uL (150-450)
[2017-07-07 11:11] LABS: Poikilocytosis (M) Present
[2017-07-07 11:28] LABS: Glucose,Whole Blood 88 mg/dL (75-99)
[2017-07-07] MEDS: POLYETHYLENE GLYCOL 3350 17 GM POWD.PACK PO SCH (11:29)
[2017-07-07] MEDS: SENNOSIDES 8.6 MG TAB PO SCH ×2 (11:29→22:13)
--- NOTE | 2017-07-07 13:48 | P.GSCN ---
History of Present Illness Consult date: 07/07/17 Reason for Consult: Abdominal aortic aneurysm, surgical recommendations. Requesting physician: Aries Vincent History of present illness: This 72-year-old gentleman who is a patient of Dr. Pike and has a previous medical history of insulin-dependent diabetes, hyperlipidemia, hypertension, rheumatoid arthritis, abdominal aortic aneurysm, and previous tobacco dependence presented to the emergency room with complaints of chills, fever, productive cough, increasing weakness and tiredness for the prior 3-4 days. In the emergency room he had a temperature of 104.6 Fahrenheit, elevated white blood cell count 11.5, and an elevated lactic acid of 3.3. He was admitted for sepsis and probable pneumonia and has received IV Zosyn and vancomycin. This gentleman has been followed with Dr. Gutierrez for the previous 2 years related to his abdominal aortic aneurysm, most recently he saw Dr. Gutierrez in the office in May 2017 when in ultrasound evaluation of his abdominal aorta demonstrated increased size from previous studies, patient had a CT angiogram on July 03 and was to follow in Dr. Gutierrez's office tomorrow July 08 for future treatment recommendations. Due to his current hospitalized state Dr. Gutierrez was consulted for recommendations regarding the patient's AAA. Review of Systems 14 point review systems was completed and was negative except as noted. - Constitutional Reports as per HPI, Reports chills, Reports fatigue, Reports fever, Reports lethargy, Reports weakness Past Medical History Past Medical History: Diabetes Mellitus, Hyperlipidemia, Hypertension, Rheumatoid Arthritis (RA) Additional Past Medical History / Comment(s): aortic aneurysm History of Any Multi-Drug Resistant Organisms: None Reported Additional Past Surgical History / Comment(s): hemorrhoidectomy, surgeries for sebaceous cysts Past Anesthesia/Blood Transfusion Reactions: Motion Sickness Past Psychological History: No Psychological Hx Reported Smoking Status: Former smoker Past Alcohol Use History: None Reported Additional Past Alcohol Use History / Comment(s): smoked age [age] 1ppd Past Drug Use History: None Reported - Past Family History Son(s) Family Medical History: Cancer Additional Family Medical History / Comment(s): brain cancer Brother(s) Family Medical History: Cancer Additional Family Medical History / Comment(s): colon cancer Sister(s) Family Medical History: Cancer Medications and Allergies Home Medications Medication Instructions Recorded Confirmed Type Aspirin [Adult Low Dose Aspirin EC] 81 mg PO DAILY 05/19/17 07/05/17 History Atenolol [Tenormin] 50 mg PO BID 05/19/17 07/05/17 History Atorvastatin [Lipitor] 20 mg PO QAM 05/19/17 07/05/17 History Etanercept [Enbrel] 50 mg SQ TU 05/19/17 07/05/17 History Gabapentin [Neurontin] 300 mg PO QID 05/19/17 07/05/17 History Insulin Glargine [Lantus] 20 unit SQ HS 05/19/17 07/05/17 History Lisinopril [Zestril] 20 mg PO DAILY 05/19/17 07/05/17 History metFORMIN HCL [Glucophage] 500 mg PO TID 05/19/17 07/05/17 History glipiZIDE [Glucotrol] 5 mg PO AC-BRKFST 06/04/17 07/05/17 History Allergies Allergy/AdvReac Type Severity Reaction Status Date / Time No Known Allergies Allergy Verified 07/05/17 18:57 Surgical - Exam Vital Signs Temp Pulse Resp BP Pulse Ox 104.6 F H 109 H 20 219/103 91 L 07/05/17 18:44 07/05/17 18:44 07/05/17 18:44 07/05/17 18:44 07/05/17 18:44 - General well developed, well nourished, no distress, no pain - Eyes PERRL, normal ocular movement - ENT no hearing loss - Neck no masses, no bruits, trachea midline - Respiratory Lungs sounds diminished bilaterally. Respirations even, nonlabored. Currently on room air with oxygen saturation 98%. - Cardiovascular S1, S2 present. Regular rate and rhythm, sinus rhythm on telemetry. Palpable peripheral pulses bilaterally. No edema present. - Abdomen Abdomen: soft, non tender, bowel sounds - Genitourinary Deferred - Rectum Deferred - Integumentary no rash, no growths - Neurologic normal coordination, normal sensation - Musculoskeletal normal gait - Psychiatric oriented to time, oriented to person, oriented to place, speech is normal, memory intact Results - Labs 07/07/17 05:57 07/07/17 05:57 Abnormal Lab Results - Last 24 Hours (Table) 07/06/17 07/06/1718 Range/Units 06:58 20:08 20:57 RBC (4.30-5.90) m/uL Hgb (13.0-17.5) gm/dL Hct (39.0-53.0) % MCV (80.0-100.0) fL Plt Count (150-450) k/uL Lymphocytes # (Manual) (1.0-4.8) k/uL Carbon Dioxide (22-30) mmol/L BUN (9-20) mg/dL Glucose (74-99) mg/dL POC Glucose (mg/dL) 100 H (75-99) mg/dL CK-MB (CK-2) 2.8 H* (0.0-2.4) ng/mL Troponin I 0.220 H* (0.000-0.034) ng/mL 07/07/17 07/07/17 07/07/17 Range/Units 05:57 05:57 06:06 RBC 3.58 L (4.30-5.90) m/uL Hgb 12.2 L D (13.0-17.5) gm/dL Hct 36.2 L (39.0-53.0) % MCV 101.1 H (80.0-100.0) fL Plt Count 79 L (150-450) k/uL Lymphocytes # (Manual) 0.80 L (1.0-4.8) k/uL Carbon Dioxide 21 L (22-30) mmol/L BUN 22 H (9-20) mg/dL Glucose 108 H (74-99) mg/dL POC Glucose (mg/dL) 115 H (75-99) mg/dL CK-MB (CK-2) (0.0-2.4) ng/mL Troponin I (0.000-0.034) ng/mL Microbiology - Last 24 Hours (Table) 07/05/17 18:45 Blood Culture - Preliminary Blood No Growth after 24 hours 07/05/17 19:00 Urine Culture - Final Urine,Voided Diabetes panel 07/07/17 Range/Units 05:57 Sodium 137 (137-145) mmol/L Potassium 4.1 (3.5-5.1) mmol/L Chloride 105 (98-107) mmol/L Carbon Dioxide 21 L (22-30) mmol/L BUN 22 H (9-20) mg/dL Creatinine 1.09 (0.66-1.25) mg/dL Glucose 108 H (74-99) mg/dL Calcium 8.9 (8.4-10.2) mg/dL Calcium panel 07/07/17 Range/Units 05:57 Calcium 8.9 (8.4-10.2) mg/dL Pituitary panel 07/07/17 Range/Units 05:57 Sodium 137 (137-145) mmol/L Potassium 4.1 (3.5-5.1) mmol/L Chloride 105 (98-107) mmol/L Carbon Dioxide 21 L (22-30) mmol/L BUN 22 H (9-20) mg/dL Creatinine 1.09 (0.66-1.25) mg/dL Glucose 108 H (74-99) mg/dL Calcium 8.9 (8.4-10.2) mg/dL Adrenal panel 07/07/17 Range/Units 05:57 Sodium 137 (137-145) mmol/L Potassium 4.1 (3.5-5.1) mmol/L Chloride 105 (98-107) mmol/L Carbon Dioxide 21 L (22-30) mmol/L BUN 22 H (9-20) mg/dL Creatinine 1.09 (0.66-1.25) mg/dL Glucose 108 H (74-99) mg/dL Calcium 8.9 (8.4-10.2) mg/dL - Imaging Chest x-ray: report reviewed, image reviewed CT scan - abdomen: report reviewed, image reviewed Additional studies: Echocardiogram results reviewed. Assessment and Plan (1) Abdominal aortic aneurysm (AAA) 3.0 cm to 5.5 cm in diameter in male Current Visit: Yes Status: Chronic Code(s): I71.4 - ABDOMINAL AORTIC ANEURYSM, WITHOUT RUPTURE SNOMED Code(s): 017371958 (2) Diabetes mellitus type 2 in obese Current Visit: Yes Status: Chronic Code(s): E11.69 - TYPE 2 DIABETES MELLITUS WITH OTHER SPECIFIED COMPLICATION; E66.9 - OBESITY, UNSPECIFIED SNOMED Code(s): 27567970 (3) Hypertension Current Visit: Yes Status: Chronic Code(s): I10 - ESSENTIAL (PRIMARY) HYPERTENSION SNOMED Code(s): 44922501 (4) Hyperlipidemia Current Visit: Yes Status: Chronic Code(s): E78.5 - HYPERLIPIDEMIA, UNSPECIFIED SNOMED Code(s): 08525075 (5) Rheumatoid arthritis Current Visit: Yes Status: Chronic Code(s): M06.9 - RHEUMATOID ARTHRITIS, UNSPECIFIED SNOMED Code(s): 57523256 (6) Tobacco dependence in remission Current Visit: No Status: Resolved Code(s): F17.201 - NICOTINE DEPENDENCE, UNSPECIFIED, IN REMISSION SNOMED Code(s): 151567624 (7) Obesity (BMI 30-39.9) Current Visit: Yes Status: Chronic Code(s): E66.9 - OBESITY, UNSPECIFIED SNOMED Code(s): 557828619 (8) Sepsis Current Visit: Yes Status: Acute Code(s): A41.9 - SEPSIS, UNSPECIFIED ORGANISM SNOMED Code(s): 45109803 Plan: The patient was seen and examined at the bedside. Chart/diagnostics were reviewed. Case discussed with Dr. Gutierrez. Would recommend continued treatment of patient's current illness. Recommend better blood pressure control , no strenuous lifting or straining. Patient should follow up with Dr. Gutierrez in his office once discharged from the hospital. No emergent surgical recommendations at this time. Thank you Dr. Vincent for this consult. Please call us with any concerns. Time with Patient: Greater than 30
--- NOTE | 2017-07-07 15:20 | P.PN ---
Progress Note - Text Progress Note Date: 07/07/17 DATE OF SERVICE: 07/07/2017 PRESENTING COMPLAINT: fever and chills. HISTORY OF PRESENT ILLNESS: 72-year-old male who presented with 3 days of chills cough with reddish sputum vomiting, became delirious weak and tired and fell at home. Appetite is been poor. On arrival patient had a fever 104. Admitted with sepsis. INTERVAL HISTORY: 07/07/2017: patient lying in bed, comfortable appearing, breathing easier, positive cough no sputum production. Remains on oxygen. Ambulatory in the room, appetite continues to be low. has had no complaints of abdominal pain. last BM prior to admission. REVIEW OF SYSTEMS: Done for constitutional ,cardiovascular, GI, pulmonary with relevant findings as above. CURRENT MEDICATIONS Tylenol, DuoNeb, aspirin, Tenormin 50 by mouth twice a day, Lipitor, Lovenox, Neurontin 300 mg by mouth 4 times a day, Glucotrol 5 mg by mouth daily, Levemir 20 units subcu at bedtime, lisinopril,Glucophage, Zosyn, vancomycin. PHYSICAL EXAM VITAL SIGNS: temperature 98.3, pulse 75, respirations 18, blood pressure 168/67, oxygen saturation 98% on 2 L. GENERAL APPEARANCE: Lying in bed, not in distress. HEENT: Normocephalic, Pupils equal. Conjunctiva normal. JVD not raised. Mass not palpable. RESPIRATORY: Respiratory effort increased Lungs diminished,, some expiratory wheezing , cough nonproductive to auscultation. CARDIOVASCULAR: First and second sounds normal. No edema. ABDOMEN: Soft. Liver and spleen not palpable. No tenderness. No mass palpable. PSYCHIATRY: Alert and oriented x3. Mood and affect normal. INVESTIGATIONS: LABS: Hemoglobin 12.2, BUN 22, Accu-Cheks noted. CT lumbar spine: No acute fracture dislocation no significant change. echocardiogram:normal sinus rhythm, moderate concentric left ventricular hypertrophy, EF between 55-60%. Mild mitral regurgitation, mild tricuspid regurgitation,. ASSESSMENT: -Pneumonia causing sepsis present on presentation, improving -Acute delirium due to sepsis, improving -Diabetes mellitus type 2, chronically on insulin. -Hyperlipidemia. -Essential hypertension. -Chronic rheumatoid arthritis. -Abdominal aortic aneurysm with the latest measurement being 4.8 x 4.6 x 5.7 cm. -Sigmoid diverticulitis, asymptomatic. -Benign prostatic hypertrophy on computed tomography scan. -Troponin leak, likely from underlying sepsis, not acute myocardial infarction. patient has no cardiac symptoms. PLAN: continue IV Zosyn and send vancomycin.Regarding patient's aortic aneurysm, vascular surgery recommends follow-up outpatient and no strenuous lifting or straining and tight blood pressure control.plan of care discussed with the patient at bedside he is in agreement. We will follow closely. ANESTHETIC ASSISTANT statement: Patient was seen and examined by nurse practitioner Supriya Britt and all elements of the case discussed with attending Dr. Vincent
[2017-07-07 16:15] LABS: Glucose,Whole Blood 118 mg/dL (75-99)
[2017-07-07 20:51] LABS: Glucose,Whole Blood 90 mg/dL (75-99)
[2017-07-07] MEDS: INSULIN DETEMIR 100 UNIT/ML 10 ML VIAL SQ SCH (22:13)
--- NOTE | 2017-07-07 22:13 | P.CONS ---
History of Present Illness - Reason for Consult Consult date: 07/07/17 - Chief Complaint fever - History of Present Illness 72-year-old male presents the emergency center with a short history of illness. The patient had developed fevers with chills and some body aches and generalized malaise. 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 The patient suddenly became worse. She became confused and his family transported him to hospital. Temperature 104.6 was noted the patient had metabolic encephalopathy. There was concern for pneumonia. Antibiotic therapy was started. Influenza testing was negative. The patient's fever fortunately improved as has leukocytosis but there is ongoing question as to the etiology of his current bout of sepsis at admission. His long-standing history of arthritis and pain in his back. There is concerns for discitis and a computed tomography scan was obtained. Fortunately this could be compared to a MRI of the spine from 06/20/2017, both which failed to show evidence of underlying discitis, epidural abscess, paraspinal abscess, possibilities of the spine. Patient is now considerably better. He sitting upright eating and drinking and has quite a good sense of humor. Fevers have improved as has his encephalopathy. Review of Systems HEENT:Denies headache or acute visual change. Denies sinus or mouth discomforts. Denies neck stiffness or pain. Denies significant oral cavity pain. Denies difficulty on swallowing. Lungs: Denies significant shortness of breath, cough, sputum production, or hemoptysis. Cardiovascular: Denies significant shortness of breath, chest pain, chest wall pain, orthopnea, dyspnea on exertion, syncope Gastrointestinal:Denies nausea, vomiting, diarrhea, constipation, hematemesis, melena, hematochezia. No no significant change of bowel habit noticed. Musculoskeletal: denies significant myalgias or arthralgias. No new joint swelling. Denies new back pain. Skin: Denies new rash or lesions. No new ulcers or wounds are related.. Neuro: Patient relates that he's having no acute focal difficulties at this time. Still has some minimal generalized weakness but nothing specific. Psychiatric:Denies anxiety or depression. Endocrine: Denies significant fatigue, denies significant weight loss or weight gain. Past Medical History Past Medical History: Diabetes Mellitus, Hyperlipidemia, Hypertension, Rheumatoid Arthritis (RA) Additional Past Medical History / Comment(s): aortic aneurysm History of Any Multi-Drug Resistant Organisms: None Reported Additional Past Surgical History / Comment(s): hemorrhoidectomy, surgeries for sebaceous cysts Past Anesthesia/Blood Transfusion Reactions: Motion Sickness Past Psychological History: No Psychological Hx Reported Additional Psychological History / Comment(s): and lives with his . Retired from the [employer]. 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 None of the animals have been ill, no other family members have been ill. Patient's has only had a cold. 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 No International travel. Was in the [employer] without international travel. Tobacco smoker stopping in his 30s. No significant alcohol use. Smoking Status: Former smoker Past Alcohol Use History: None Reported Additional Past Alcohol Use History / Comment(s): smoked age [age] 1ppd Past Drug Use History: None Reported - Past Family History Son(s) Family Medical History: Cancer Additional Family Medical History / Comment(s): brain cancer Brother(s) Family Medical History: Cancer Additional Family Medical History / Comment(s): colon cancer Sister(s) Family Medical History: Cancer Medications and Allergies Home Medications and Allergies Comment(s): Current Medications Acetaminophen (Tylenol Tab) 1,000 mg PO Q6HR PRN PRN Reason: Fever and/ or Mild Pain Last Admin: 07/07/17 15:28 Dose: 1,000 mg Albuterol/Ipratropium (Duoneb 0.5 Mg-3 Mg/3 Ml Soln) 3 ml INHALATION RT-Q4H PRN PRN Reason: shortness of breath Last Admin: 07/07/17 16:11 Dose: 3 ml Aspirin (Aspirin) 81 mg PO DAILY [facility] Last Admin: 07/07/17 08:46 Dose: 81 mg Atenolol (Tenormin) 50 mg PO BID [facility] Last Admin: 07/07/17 08:46 Dose: 50 mg Atorvastatin Calcium (Lipitor) 20 mg PO QAM [facility] Last Admin: 07/07/17 08:46 Dose: 20 mg Enoxaparin Sodium (Lovenox) 40 mg SQ DAILY [facility] Last Admin: 07/07/17 08:46 Dose: 40 mg Gabapentin (Neurontin) 300 mg PO QID [facility] Last Admin: 07/07/17 17:00 Dose: 300 mg Glipizide (Glucotrol) 5 mg PO AC-BRKFST [facility] Last Admin: 07/07/17 07:21 Dose: 5 mg Sodium Chloride (Saline 0.9%) 1,000 mls @ 100 mls/hr IV .Q10H [facility] Last Admin: 07/07/17 10:44 Dose: Not Given Piperacillin/Tazobactam/ (Dextrose 3.375 gm/ IV Solution) 50 mls @ 12.5 mls/hr IVPB Q8HR [facility] Last Admin: 07/07/17 15:32 Dose: 12.5 mls/hr Vancomycin HCl 1,750 mg/ (Sodium Chloride) 250 mls @ 125 mls/hr IVPB Q16H [facility] Last Admin: 07/07/17 05:52 Dose: 125 mls/hr Insulin Detemir (Levemir) 20 unit SQ [facility] Last Admin: 07/06/17 21:08 Dose: 20 unit Lisinopril (Zestril) 20 mg PO DAILY [facility] Last Admin: 07/07/17 08:46 Dose: 20 mg Metformin HCl (Glucophage) 500 mg PO TID [facility] Last Admin: 07/07/17 16:17 Dose: 500 mg Miscellaneous Information (Pneumonia Protocol Utilized) 1 each PO ONCE PRN PRN Reason: Per Protocol Nitroglycerin (Nitrostat) 0.4 mg SUBLINGUAL Q5M PRN PRN Reason: Chest Pain Polyethylene Glycol (Miralax) 17 gm PO DAILY [facility] Last Admin: 07/07/17 11:29 Dose: 17 gm Senna (Senokot) 8.6 mg PO BID [facility] Last Admin: 07/07/17 11:29 Dose: 8.6 mg Home Medications Medication Instructions Recorded Confirmed Type Aspirin [Adult Low Dose Aspirin EC] 81 mg PO DAILY 05/19/17 07/05/17 History Atenolol [Tenormin] 50 mg PO BID 05/19/17 07/05/17 History Atorvastatin [Lipitor] 20 mg PO QAM 05/19/17 07/05/17 History Etanercept [Enbrel] 50 mg SQ TU 05/19/17 07/05/17 History Gabapentin [Neurontin] 300 mg PO QID 05/19/17 07/05/17 History Insulin Glargine [Lantus] 20 unit SQ HS 05/19/17 07/05/17 History Lisinopril [Zestril] 20 mg PO DAILY 05/19/17 07/05/17 History metFORMIN HCL [Glucophage] 500 mg PO TID 05/19/17 07/05/17 History glipiZIDE [Glucotrol] 5 mg PO AC-BRKFST 06/04/17 07/05/17 History Allergies Allergy/AdvReac Type Severity Reaction Status Date / Time No Known Allergies Allergy Verified 07/05/17 18:57 Physical Exam Vitals: Vital Signs Temp Pulse Pulse Resp BP BP Pulse Ox 07/07/17 16:25 70 07/07/17 16:13 72 07/07/17 16:00 98.5 F 75 18 165/80 94 L 07/07/17 14:50 100.0 F H 81 18 153/70 92 L 07/07/17 11:08 76 07/07/17 10:59 68 07/07/17 08:46 98.3 F 75 18 168/67 07/07/17 07:57 76 07/07/17 07:46 65 07/07/17 04:00 99.2 F 81 19 161/88 93 L 07/07/17 00:00 99.6 F 81 19 126/68 94 L Intake and Output 07/07/17 07/07/17 07/07/17 06:59 14:59 22:59 Intake Total 500 460 Output Total 650 350 Balance -150 110 Intake: Intake, IV Titration 300 100 Amount Piperacillin-Tazobactam 3 50 .375 gm In Dextrose/Water 1 50ml.bag @ 12.5 mls/hr IVPB Q8HR [facility] Rx#: [id number] Sodium Chloride 0.9% 1, 100 000 ml @ 100 mls/hr IV . Q10H [facility] Rx#:[id number] Vancomycin 1,750 mg In 250 Sodium Chloride 0.9% 250 ml @ 125 mls/hr IVPB Q16H [facility] Rx#:[id number] Oral 200 360 Output: Urine 650 350 Other: Voiding Method Urinal Urinal Urinal # Voids 1 Weight 95.9 kg 72-year-old male who is now considerably improved. HEENT: Anicteric conjunctiva are pink and moist nasal mucosa grossly intact without significant lesions, there is no thrush. Neck: The neck is supple without significant lymphadenopathy or thyromegaly. Lungs: Good bilateral air entry, rare crackles in the bilateral bases There is no significant bronchial sounds. There is no egophony or dullness. Heart: irregular with a soft S4, no significant murmur click or rub Abdomen : Positive bowel sounds soft and nontender without palpable masses or organomegaly no guarding or rebound Extremities: The upper extremities have excellent pulses they are symmetric, no significant petechiae or telangiectasia. No splinter hemorrhages were noted. The lower ehave traceedema. The peripheral pulses were 2+ and symmetric. Neuro: Awake alert oriented to person place and time. There are no acute new gross focal sensory motor deficits. Results CBC & Chem 7: 07/07/17 05:57 07/07/17 05:57 Labs: Abnormal Lab Results - Last 24 Hours (Table) 07/06/17 07/06/17 07/07/17 Range/Units 06:58 20:08 05:57 RBC 3.58 L (4.30-5.90) m/uL Hgb 12.2 L D (13.0-17.5) gm/dL Hct 36.2 L (39.0-53.0) % MCV 101.1 H (80.0-100.0) fL Plt Count 79 L (150-450) k/uL Lymphocytes # (Manual) 0.80 L (1.0-4.8) k/uL Carbon Dioxide (22-30) mmol/L BUN (9-20) mg/dL Glucose (74-99) mg/dL POC Glucose (mg/dL) (75-99) mg/dL CK-MB (CK-2) 2.8 H* (0.0-2.4) ng/mL Troponin I 0.220 H* (0.000-0.034) ng/mL 07/07/17 07/07/17 07/07/17 Range/Units 05:57 06:06 16:13 RBC (4.30-5.90) m/uL Hgb (13.0-17.5) gm/dL Hct (39.0-53.0) % MCV (80.0-100.0) fL Plt Count (150-450) k/uL Lymphocytes # (Manual) (1.0-4.8) k/uL Carbon Dioxide 21 L (22-30) mmol/L BUN 22 H (9-20) mg/dL Glucose 108 H (74-99) mg/dL POC Glucose (mg/dL) 115 H 118 H (75-99) mg/dL CK-MB (CK-2) (0.0-2.4) ng/mL Troponin I (0.000-0.034) ng/mL Microbiology - Last 24 Hours (Table) 07/05/17 18:45 Blood Culture - Preliminary Blood No Growth after 48 hours 07/05/17 19:00 Urine Culture - Final Urine,Voided Laboratory Results WBC 8.9 k/uL (3.8-10.6) 07/07/17 05:57 RBC 3.58 m/uL (4.30-5.90) L 07/07/17 05:57 Hgb 12.2 gm/dL (13.0-17.5) L D 07/07/17 05:57 Hct 36.2 % (39.0-53.0) L 07/07/17 05:57 MCV 101.1 fL (80.0-100.0) H 07/07/17 05:57 MCH 34.1 pg (25.0-35.0) 07/07/17 05:57 MCHC 33.7 g/dL (31.0-37.0) 07/07/17 05:57 RDW 13.9 % (11.5-15.5) 07/07/17 05:57 Plt Count 79 k/uL (150-450) L 07/07/17 05:57 Neutrophils % (Manual) 84 % 07/07/17 05:57 Band Neutrophils % 1 % 07/07/17 05:57 Lymphocytes % (Manual) 9 % 07/07/17 05:57 Monocytes % (Manual) 6 % 07/07/17 05:57 Neutrophils # (Manual) 7.50 k/uL (1.3-7.7) 07/07/17 05:57 Lymphocytes # (Manual) 0.80 k/uL (1.0-4.8) L 07/07/17 05:57 Monocytes # (Manual) 0.53 k/uL (0-1.0) 07/07/17 05:57 Nucleated RBCs 0 /100 WBC (0-0) 07/07/17 05:57 Manual Slide Review Performed 07/07/17 05:57 RBC Morphology Normal 07/05/17 18:45 Poikilocytosis (manual Present 07/07/17 05:57 Macrocytosis Slight 07/07/17 05:57 PT 10.8 sec (9.0-12.0) 07/05/17 18:45 INR 1.1 (<1.2) 07/05/17 18:45 APTT 23.8 sec (22.0-30.0) 07/05/17 18:45 Sodium 137 mmol/L (137-145) 07/07/17 05:57 Potassium 4.1 mmol/L (3.5-5.1) 07/07/17 05:57 Chloride 105 mmol/L (98-107) 07/07/17 05:57 Carbon Dioxide 21 mmol/L (22-30) L 07/07/17 05:57 Anion Gap 11 mmol/L 07/07/17 05:57 BUN 22 mg/dL (9-20) H 07/07/17 05:57 Creatinine 1.09 mg/dL (0.66-1.25) 07/07/17 05:57 Est GFR (MDRD) Af Amer >60 (>60 ml/min/1.73 sqM) 07/07/17 05:57 Est GFR (MDRD) Non-Af >60 (>60 ml/min/1.73 sqM) 07/07/17 05:57 Glucose 108 mg/dL (74-99) H 07/07/17 05:57 POC Glucose (mg/dL) 90 mg/dL (75-99) 07/07/17 20:41 POC Glu [employer] Inspector ID Brandy Michaels 07/07/17 20:[address] Glu mg/dL 160 07/05/17 18:45 Hemoglobin A1c 7.2 % (4.0-6.0) H 07/05/17 18:45 Lactic Ac Sepsis Rflx Y 07/05/17 19:11 Plasma Lactic Acid Hernán 1.6 mmol/L (0.7-2.0) 07/06/17 20:08 Calcium 8.9 mg/dL (8.4-10.2) 07/07/17 05:57 Total Bilirubin 1.2 mg/dL (0.2-1.3) 07/05/17 18:45 AST 38 U/L (17-59) 07/05/17 18:45 ALT 56 U/L (21-72) 07/05/17 18:45 Alkaline Phosphatase 73 U/L (38-126) 07/05/17 18:45 Total Creatine Kinase 203 U/L (55-170) H 07/06/17 06:58 CK-MB (CK-2) 2.8 ng/mL (0.0-2.4) H* 07/06/17 06:58 CK-MB (CK-2) Rel Index 1.4 07/06/17 06:58 Troponin I 0.220 ng/mL (0.000-0.034) H* 07/06/17 20:08 Total Protein 8.5 g/dL (6.3-8.2) H 07/05/17 18:45 Albumin 4.6 g/dL (3.5-5.0) 07/05/17 18:45 Triglycerides 102 mg/dL (<150) 07/06/17 06:58 Cholesterol 94 mg/dL (<200) 07/06/17 06:58 LDL Cholesterol, Calc 47 mg/dL (0-99) 07/06/17 06:58 HDL Cholesterol 27 mg/dL (40-60) L 07/06/17 06:58 Urine Color Yellow 07/05/17 19:00 Urine Appearance Clear (Clear) 07/05/17 19:00 Urine pH 6.5 (5.0-8.0) 07/05/17 19:00 Ur Specific [place] 1.014 (1.001-1.035) 07/05/17 19:00 Urine Protein 2+ (Negative) H 07/05/17 19:00 Urine Glucose (UA) 3+ (Negative) H 07/05/17 19:00 Urine Ketones Trace (Negative) H 07/05/17 19:00 Urine Blood Small (Negative) H 07/05/17 19:00 Urine Nitrite Negative (Negative) 07/05/17 19:00 Urine Bilirubin Negative (Negative) 07/05/17 19:00 Urine Urobilinogen <2.0 mg/dL (<2.0) 07/05/17 19:00 Ur Leukocyte Esterase Negative (Negative) 07/05/17 19:00 Urine RBC 3 /hpf (0-5) 07/05/17 19:00 Urine WBC <1 /hpf (0-5) 07/05/17 19:00 Influenza Type A RNA Not Detected (Not Detectd) 07/05/17 18:45 Influenza Type B (PCR) Not Detected (Not Detectd) 07/05/17 18:45 Microbiology 07/05/17 18:45 Blood Blood Culture - Preliminary No Growth after 48 hours 07/05/17 19:00 Urine,Voided Urine Culture - Final Comments: CT and MRI have been reviewed without evidence of discitis, osteomyelitis of the spine, epidural abscess, paraspinous abscess. Chest x-ray: image reviewed (Cardiomegaly, COPD no distinct infiltrate) Assessment and Plan (1) Sepsis Narrative/Plan: 72 year Male presents to Hospital from home with significant fevers associated with chills and with time metabolic encephalopathy. His family brought him to Hospital or temperature 104.6 was found also evidence of leukocytosis. With fluids and antibiotic therapy as noted marked improvement. Imaging studies have failed to show evidence of significant pneumonia. The patient over does have some wheezing. The patient had imaging of his spine with no evidence of underlying infection to the spine or at supporting structures. Blood cultures are negative. The patient is now had a significant recovery that has been quite rapid. Concerned she could've had an acute exacerbation of underlying COPD however it appears that he had an acute viral infection that precipitated this current event. Influenza testing was negative. However a plethora of other influenza- like viruses could have easily cause this current infection. The patient is treated with Enbrel which may have also allowed the significant symptoms of his admission. Vancomycin is discontinued If shows ongoing further improvement Zosyn should be transitioned to Augmentin to complete a course of therapy at the time of his discharge. He will follow up with cardiothoracic surgery after discharge regarding his abdominal aortic aneurysm. Leukocytosis has resolved Current Visit: Yes Status: Acute Code(s): A41.9 - SEPSIS, UNSPECIFIED ORGANISM SNOMED Code(s): 34225789 (2) Fever Current Visit: Yes Status: Acute Code(s): R50.9 - FEVER, UNSPECIFIED SNOMED Code(s): 911609778 (3) Abdominal aortic aneurysm (AAA) 3.0 cm to 5.5 cm in diameter in male Current Visit: Yes Status: Chronic Code(s): I71.4 - ABDOMINAL AORTIC ANEURYSM, WITHOUT RUPTURE SNOMED Code(s): 269702927
--- NOTE | 2017-07-07 22:31 | PN ---
PROGRESS NOTE DATE OF SERVICE: 07/07/2017 ATTENDING NOTE: This patient was seen and examined by me. I discussed the case with the nurse practitioner Ms. Britt. Patient admitted with pneumonia, sepsis. Looks a bit better. Appetite is still a bit down. Some cough is present. PHYSICAL EXAMINATION: T-max was 100.9. Pulse 75, respiration 18, blood pressure 160/67, pulse ox 98%. LUNGS: Decreased breath sounds. Some coarse breath sounds. CARDIOVASCULAR: First and second sounds normal. No edema. PSYCH: Alert and oriented x3. More awake, alert. INVESTIGATIONS: White count 8.9, potassium 4.1, creatinine 1.09. Blood cultures are pending. ASSESSMENT: 1. Pneumonia causing sepsis, present on admission, with acute delirium with some improvement. 2. Abdominal aortic aneurysm, to be followed as an outpatient as per Dr. Gutierrez. PLAN: Patient is on IV vancomycin and Zosyn. Continue with the same. CT scan did not report any discitis. MMODL / IJN: [id number] /
[2017-07-07 22:48] LABS: Hemoglobin A1C 7.1 % (4.0-6.0)
[2017-07-08] MEDS: PIPERACILLIN-TAZOBACTAM 3.375 GM in DEXTROSE/WATER 1 50ML.BAG IVPB SCH ×3 (00:05→14:10)
[2017-07-08 00:58] LABS: Glucose,Whole Blood 116 mg/dL (75-99)
[2017-07-08] MEDS: VANCOMYCIN 1,750 MG in SODIUM CHLORIDE 0.9% 250 ML IVPB SCH (01:43)
[2017-07-08 07:25] LABS: Glucose,Whole Blood 87 mg/dL (75-99)
[2017-07-08] MEDS: IPRATROPIUM-ALBUTEROL 3 ML NEB INHALATION PRN (07:38)
[2017-07-08] MEDS: POLYETHYLENE GLYCOL 3350 17 GM POWD.PACK PO SCH (08:27)
[2017-07-08] MEDS: SENNOSIDES 8.6 MG TAB PO SCH (08:28)
[2017-07-08] MEDS: ASPIRIN 81 MG PO SCH (08:30)
[2017-07-08] MEDS: metFORMIN 500 MG TAB PO SCH (08:30)
[2017-07-08] MEDS: GABAPENTIN 300 MG CAP PO SCH ×2 (08:30→12:54)
[2017-07-08] MEDS: ATORVASTATIN 20 MG TAB PO SCH (08:30)
[2017-07-08] MEDS: ENOXAPARIN 40 MG/0.4 ML SYRINGE SQ SCH (08:30)
[2017-07-08] MEDS: LISINOPRIL 20 MG TAB PO SCH (08:30)
[2017-07-08] MEDS: ATENOLOL 50 MG TAB PO SCH (08:30)
[2017-07-08] MEDS: SODIUM CHLORIDE 0.9% 1,000 ML IV SCH (08:31)
[2017-07-08] MEDS ORDERED: NON-FORMULARY DRUG (Etanercept [Enbrel] 50 MG) SQ SCH (09:00)
[2017-07-08 09:08] LABS: Anion Gap 13 mmol/L; Blood Urea Nitrogen 17 mg/dL (9-20); Calcium 8.7 mg/dL (8.4-10.2); Carbon Dioxide 22 mmol/L (22-30); Chloride 104 mmol/L (98-107); Glucose 101 mg/dL (74-99); Potassium 3.9 mmol/L (3.5-5.1); Sodium 139 mmol/L (137-145)
[2017-07-08 12:35] LABS: Glucose,Whole Blood 59 mg/dL (75-99)
[2017-07-08 12:35] LABS: Glucose,Whole Blood 76 mg/dL (75-99)
[2017-07-08 15:56] VITALS: BP 166/77; PULSE 74; RESP 20; TEMP 99.8
--- NOTE | 2017-07-08 22:24 | P.PN ---
Subjective Progress Note Date: 07/08/17 Principal diagnosis: fever 72-year-old male presents the emergency center with a short history of illness. The patient had developed fevers with chills and some body aches and generalized malaise. 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 The patient suddenly became worse. She became confused and his family transported him to hospital. Temperature 104.6 was noted the patient had metabolic encephalopathy. There was concern for pneumonia. Antibiotic therapy was started. Influenza testing was negative. The patient's fever fortunately improved as has leukocytosis but there is ongoing question as to the etiology of his current bout of sepsis at admission. His long-standing history of arthritis and pain in his back. There is concerns for discitis and a computed tomography scan was obtained. Fortunately this could be compared to a MRI of the spine from 06/20/2017, both which failed to show evidence of underlying discitis, epidural abscess, paraspinal abscess, possibilities of the spine. Patient is now considerably better. He sitting upright eating and drinking and has quite a good sense of humor. Fevers have reolved as has his encephalopathy. Objective - Vital Signs Vital signs: Vital Signs Temp 99.8 F H 07/08/17 15:00 Pulse 74 07/08/17 15:00 Resp 20 07/08/17 15:00 BP 166/77 07/08/17 15:00 Pulse Ox 96 07/08/17 15:00 Intake & Output 07/08/17 07/08/17 07/09/17 06:59 18:59 06:59 Intake Total 300 240 Balance 300 240 Intake: Oral 300 240 Other: Voiding Method Urinal # Voids 2 1 # Bowel Movements 1 1 - Exam 72-year-old male who is now considerably improved. HEENT: Anicteric conjunctiva are pink and moist nasal mucosa grossly intact without significant lesions, there is no thrush. Neck: The neck is supple without significant lymphadenopathy or thyromegaly. Lungs: Good bilateral air entry, rare crackles in the bilateral bases There is no significant bronchial sounds. There is no egophony or dullness. Heart: irregular with a soft S4, no significant murmur click or rub Abdomen : Positive bowel sounds soft and nontender without palpable masses or organomegaly no guarding or rebound Extremities: The upper extremities have excellent pulses they are symmetric, no significant petechiae or telangiectasia. No splinter hemorrhages were noted. The lower ehave traceedema. The peripheral pulses were 2+ and symmetric. Neuro: Awake alert oriented to person place and time. There are no acute new gross focal sensory motor deficits. - Labs CBC & Chem 7: 07/07/17 05:57 07/08/17 08:25 Labs: Abnormal Lab Results - Last 24 Hours (Table) 07/07/17 07/08/17 07/08/17 Range/Units 05:57 00:52 08:25 Glucose 101 H (74-99) mg/dL POC Glucose (mg/dL) 116 H (75-99) mg/dL Hemoglobin A1c 7.1 H (4.0-6.0) % 07/08/17 Range/Units 11:59 Glucose (74-99) mg/dL POC Glucose (mg/dL) 59 L (75-99) mg/dL Hemoglobin A1c (4.0-6.0) % Microbiology - Last 24 Hours (Table) 07/05/17 18:45 Blood Culture - Preliminary Blood No Growth after 72 hours Laboratory Results WBC 8.9 k/uL (3.8-10.6) 07/07/17 05:57 RBC 3.58 m/uL (4.30-5.90) L 07/07/17 05:57 Hgb 12.2 gm/dL (13.0-17.5) L D 07/07/17 05:57 Hct 36.2 % (39.0-53.0) L 07/07/17 05:57 MCV 101.1 fL (80.0-100.0) H 07/07/17 05:57 MCH 34.1 pg (25.0-35.0) 07/07/17 05:57 MCHC 33.7 g/dL (31.0-37.0) 07/07/17 05:57 RDW 13.9 % (11.5-15.5) 07/07/17 05:57 Plt Count 79 k/uL (150-450) L 07/07/17 05:57 Neutrophils % (Manual) 84 % 07/07/17 05:57 Band Neutrophils % 1 % 07/07/17 05:57 Lymphocytes % (Manual) 9 % 07/07/17 05:57 Monocytes % (Manual) 6 % 07/07/17 05:57 Neutrophils # (Manual) 7.50 k/uL (1.3-7.7) 07/07/17 05:57 Lymphocytes # (Manual) 0.80 k/uL (1.0-4.8) L 07/07/17 05:57 Monocytes # (Manual) 0.53 k/uL (0-1.0) 07/07/17 05:57 Nucleated RBCs 0 /100 WBC (0-0) 07/07/17 05:57 Manual Slide Review Performed 07/07/17 05:57 RBC Morphology Normal 07/05/17 18:45 Poikilocytosis (manual Present 07/07/17 05:57 Macrocytosis Slight 07/07/17 05:57 PT 10.8 sec (9.0-12.0) 07/05/17 18:45 INR 1.1 (<1.2) 07/05/17 18:45 APTT 23.8 sec (22.0-30.0) 07/05/17 18:45 Sodium 139 mmol/L (137-145) 07/08/17 08:25 Potassium 3.9 mmol/L (3.5-5.1) 07/08/17 08:25 Chloride 104 mmol/L (98-107) 07/08/17 08:25 Carbon Dioxide 22 mmol/L (22-30) 07/08/17 08:25 Anion Gap 13 mmol/L 07/08/17 08:25 BUN 17 mg/dL (9-20) 07/08/17 08:25 Creatinine 0.96 mg/dL (0.66-1.25) 07/08/17 08:25 Est GFR (MDRD) Af Amer >60 (>60 ml/min/1.73 sqM) 07/08/17 08:25 Est GFR (MDRD) Non-Af >60 (>60 ml/min/1.73 sqM) 07/08/17 08:25 Glucose 101 mg/dL (74-99) H 07/08/17 08:25 POC Glucose (mg/dL) 76 mg/dL (75-99) 07/08/17 12:21 POC Glu Captain [employer] Tender ID Ina Harrington 07/08/17 12:[address] Glu mg/dL 157 01/08/18 05:57 Hemoglobin A1c 7.1 % (4.0-6.0) H 07/07/17 05:57 Lactic Ac Sepsis Rflx Y 07/05/17 19:11 Plasma Lactic Acid Hernán 1.6 mmol/L (0.7-2.0) 07/06/17 20:08 Calcium 8.7 mg/dL (8.4-10.2) 07/08/17 08:25 Total Bilirubin 1.2 mg/dL (0.2-1.3) 07/05/17 18:45 AST 38 U/L (17-59) 07/05/17 18:45 ALT 56 U/L (21-72) 07/05/17 18:45 Alkaline Phosphatase 73 U/L (38-126) 07/05/17 18:45 Total Creatine Kinase 203 U/L (55-170) H 07/06/17 06:58 CK-MB (CK-2) 2.8 ng/mL (0.0-2.4) H* 07/06/17 06:58 CK-MB (CK-2) Rel Index 1.4 07/06/17 06:58 Troponin I 0.220 ng/mL (0.000-0.034) H* 07/06/17 20:08 Total Protein 8.5 g/dL (6.3-8.2) H 07/05/17 18:45 Albumin 4.6 g/dL (3.5-5.0) 07/05/17 18:45 Triglycerides 102 mg/dL (<150) 07/06/17 06:58 Cholesterol 94 mg/dL (<200) 07/06/17 06:58 LDL Cholesterol, Calc 47 mg/dL (0-99) 07/06/17 06:58 HDL Cholesterol 27 mg/dL (40-60) L 07/06/17 06:58 Urine Color Yellow 07/05/17 19:00 Urine Appearance Clear (Clear) 07/05/17 19:00 Urine pH 6.5 (5.0-8.0) 07/05/17 19:00 Ur Specific [place] 1.014 (1.001-1.035) 07/05/17 19:00 Urine Protein 2+ (Negative) H 07/05/17 19:00 Urine Glucose (UA) 3+ (Negative) H 07/05/17 19:00 Urine Ketones Trace (Negative) H 07/05/17 19:00 Urine Blood Small (Negative) H 07/05/17 19:00 Urine Nitrite Negative (Negative) 07/05/17 19:00 Urine Bilirubin Negative (Negative) 07/05/17 19:00 Urine Urobilinogen <2.0 mg/dL (<2.0) 07/05/17 19:00 Ur Leukocyte Esterase Negative (Negative) 07/05/17 19:00 Urine RBC 3 /hpf (0-5) 07/05/17 19:00 Urine WBC <1 /hpf (0-5) 07/05/17 19:00 Influenza Type A RNA Not Detected (Not Detectd) 07/05/17 18:45 Influenza Type B (PCR) Not Detected (Not Detectd) 07/05/17 18:45 Microbiology 07/05/17 18:45 Blood Blood Culture - Preliminary No Growth after 72 hours 07/05/17 19:00 Urine,Voided Urine Culture - Final - Imaging and Cardiology Chest x-ray: report reviewed (negative for infiltrate) Assessment and Plan (1) Sepsis Narrative/Plan: 72 year Male presents to Hospital from home with significant fevers associated with chills and with time metabolic encephalopathy. His family brought him to Hospital or temperature 104.6 was found also evidence of leukocytosis. With fluids and antibiotic therapy as noted marked improvement. Imaging studies have failed to show evidence of significant pneumonia. The patient over does have some wheezing. The patient had imaging of his spine with no evidence of underlying infection to the spine or at supporting structures. Blood cultures are negative. The patient is now had a significant recovery that has been quite rapid. Concerned she could've had an acute exacerbation of underlying COPD however it appears that he had an acute viral infection that precipitated this current event. Influenza testing was negative. However a plethora of other influenza- like viruses could have easily cause this current infection. The patient is treated with Enbrel which may have also allowed the significant symptoms of his admission. Vancomycin is discontinued Now improved, discontinue Zosyn and transition to Augmentin to complete a course of therapy at the time of his discharge. He will follow up with cardiothoracic surgery after discharge regarding his abdominal aortic aneurysm. Leukocytosis has resolved, ready for discharge, discussed with Hospitalist. Status: Acute Code(s): A41.9 - SEPSIS, UNSPECIFIED ORGANISM SNOMED Code(s): 57088256 (2) Fever Status: Acute Code(s): R50.9 - FEVER, UNSPECIFIED SNOMED Code(s): 827269266 (3) Abdominal aortic aneurysm (AAA) 3.0 cm to 5.5 cm in diameter in male Status: Chronic Code(s): I71.4 - ABDOMINAL AORTIC ANEURYSM, WITHOUT RUPTURE SNOMED Code(s): 590916284
--- NOTE | 2017-07-09 09:12 | DS ---
DISCHARGE SUMMARY DATE OF ADMISSION: 07/05/2017 DATE OF DISCHARGE: 07/08/2017 FINAL DIAGNOSES: 1. Pneumonia suspect gram-negative organism causing sepsis, present on admission. 2. Acute delirium due to sepsis, present on admission. 3. Diabetes mellitus type 2, chronically on insulin. 4. Hyperlipidemia. 5. Essential hypertension. 6. Chronic rheumatoid arthritis. 7. Abdominal aortic aneurysm 4.8 x 4.6 x 5.7 cm. 8. Sigmoid diverticulosis, asymptomatic. 9. Benign prostatic hypertrophy. 10.Troponin leak secondary to underlying sepsis, not acute myocardial infarction. The patient had no cardiac symptoms. 11.Acute on chronic low back pain from lumbar degenerative joint disease. HOSPITAL COURSE: This patient presented with sepsis due to pneumonia. Blood cultures were negative. Did have a CT scan of lumbar spine because of flare up of chronic low back pain, felt to be from arthritis. No discitis was found. Cultures remain negative. The patient doing well. By the time of discharge, afebrile, tolerating a diet, up and about. The patient's blood pressure a bit uncontrolled, hence, lisinopril dose was increased. ON EXAM: LUNGS: Improved air entry. CARDIOVASCULAR: First and second sounds normal. PSYCH: A&O x3. Care was discussed with the patient and . Questions were answered. CONSULTATIONS: Dr. Teague, infectious disease. DISCHARGE MEDICATIONS: 1. Aspirin 81 mg a day. 2. Tenormin 50 mg b.i.d. 3. Lipitor 20 mg a day. 4. Enbrel 50 mg on Friday. 5. Neurontin 300 mg p.o. q.i.d. 6. Lantus 20 units subcutaneously q.h.s. 7. Glucophage 500 mg t.i.d. 8. Glucotrol 5 mg with breakfast. 9. Augmentin 875 one tab p.o. q.12, ten tablets. 10.Zestoretic 20/12.5 one tablet p.o. b.i.d. 11.Nitrostat q.5 p.r.n. 12.MiraLAX 17 grams p.o. daily. 13.Senokot 8.6 p.o. b.i.d. Follow up with Dr. Pike in 3 days. Follow up with Dr. Gutierrez on 07/22/17. LABS: CBC and BMP in 3 days. Discussion and discharge planning more than 35 minutes. MMODL / IJN: [id number] /
== END 2017-07-08 16:54 | disposition home or self-care (01) | DRG 871 ==
LOC: EC 18:32 → 6SEL 20:34 → 4MS4W 07-07 16:42
PROVIDERS: ADMIT Hospitalist; ATTEND Hospitalist
DX: A41.9 Sepsis, unspecified organism (principal); J15.6 Pneumonia due to other Gram-negative bacteria; F05 Delirium due to known physiological condition; K57.32 Diverticulitis of large intestine without perforation or abscess without bleeding; M06.9 Rheumatoid arthritis, unspecified; E11.9 Type 2 diabetes mellitus without complications; E86.0 Dehydration; E78.5 Hyperlipidemia, unspecified; I10 Essential (primary) hypertension; N40.0 Benign prostatic hyperplasia without lower urinary tract symptoms; E66.9 Obesity, unspecified; Z68.31 Body mass index [BMI] 31.0-31.9, adult; I71.4 Abdominal aortic aneurysm, without rupture; G89.29 Other chronic pain; M47.816 Spondylosis without myelopathy or radiculopathy, lumbar region; F17.201 Nicotine dependence, unspecified, in remission; R04.0 Epistaxis; Z79.82 Long term (current) use of aspirin; Z79.4 Long term (current) use of insulin; Z79.899 Other long term (current) drug therapy; W19.XXXA Unspecified fall, initial encounter; Y92.009 Unspecified place in unspecified non-institutional (private) residence as the place of occurrence of the external cause
CPT/HCPCS: 36415; 71046; 72131; 74018; 74175; 80048; 80053; 80061; 81001; 82550; 82553; 82565; 83036; 83605; 84484; 84520; 85025; 85610; 85730; 87040; 87086; 87502; 93005; 93306; 94640; 94760; 96361; 96365; 96366; 96367; 96372; 96375; 99284

== ENCOUNTER 2017-07-22 09:41 | Day surgery (SDC) | payer MEDICARE ==
[2017-07-14 15:07] VITALS: BMI 32.5
[~2017-07-22 09:41] MED LIST changes: +LIDOCAINE 1% 20 ML VIAL (10MG/ML) FOR IV START INTRADERMA PRN; +ONDANSETRON 4 MG/2 ML VIAL IVP ONE
[2017-07-22] MEDS: CYCLOPENTOLATE 1% OPHTH SOLN 2 ML BTL OP ONE ×3 (10:50→11:12)
[2017-07-22] MEDS: FLURBIPROFEN 0.03% OPHTH DROPS 2.5 ML BTL OP ONE ×3 (10:53→11:15)
[2017-07-22 10:57] VITALS: RESP 16; TEMP 98
[2017-07-22] MEDS: PHENYLEPHRINE 10% OPHTH DROPS 5 ML BTL OP ONE ×2 (10:57→11:08)
[2017-07-22 11:14] LABS: Glucose,Whole Blood 96 mg/dL (75-99)
[2017-07-22] MEDS ORDERED: PROPOFOL 10 MG/ML 20 ML VIAL IV ONE (11:48)
[2017-07-22] MEDS ORDERED: EPINEPHrine (PF) 0.5 ML in BALANCED SALT IRRIG SOLN COMB2 500 ML IRRIGATION ONE (11:57)
[2017-07-22] MEDS ORDERED: BALANCED SALT IRRIG SOLN COMB2 15 ML IRRIG.SOLN IRRIGATION ONE (11:59)
[2017-07-22] MEDS ORDERED: HYALURONATE SODIUM INTRAOCULAR 1 EACH SYRINGE (10MG/ML) INTRAOCULA ONE (11:59)
--- NOTE | 2017-07-22 12:09 | P.OP ---
Date of Procedure: 07/22/17 Procedure(s) Performed: PREOPERATIVE DIAGNOSIS: Cataract, right eye. POSTOPERATIVE DIAGNOSIS: Cataract, right eye. OPERATION: Phacoemulsification cataract, right eye. DESCRIPTION OF PROCEDURE: The patient was taken to the preoperative holding area. Intravenous Propofol was given so as to bring about adequate sedation. The following mixture was given for local anesthesia: 5 mL of 2% lidocaine, 5 mL of 0.75% Marcaine, and 1 mL of Wydase. Approximately 4 mL was injected in the retrobulbar space of the surgical eye. Additional 1 mL was then directed to the temporal area of the surgical eye. This was performed to allow adequate neurological block of the facial muscles. The patient was revived and then taken into the operative room. The patient was prepped and draped in the usual sterile manner for the operative eye. A lid speculum was put into position. The conjunctiva was resected back from the limbus in the 12 o'clock position. Bleeding was controlled with electrocautery. A #69 blade was then used and a half-thickness scleral incision approximately 1-mm posterior to the limbus was made on bare sclera. This was shelved in the clear cornea using a crescent knife. Next a 15-degree blade was used to make a stab incision at the 3 o' clock position at the corneolimbal interface. Keratome blade was then used and the superior wound was extended into the anterior chamber. Viscoelastic was injected into the anterior chamber and to maintain its form. Next, a cystotome was used and a continuous anterior capsulotomy was made without difficulty. Hydrodissection using a blunt cannula and BSS was performed. Phaco probe was then employed and a groove extending from 12 to 6 o'clock in the lens was created. A Leon wand was used through the stab incision so as to perform a divide and conquer technique. Next an irrigation aspiration probe was utilized and any residual cortex was removed from the eye. Again, viscoelastic was injected into the anterior chamber. An Domenic posterior chamber lens implant was placed in the cartridge and injected into the anterior chamber without difficulty. The SinStyleHopey hook was utilized to spin the lens into position and this was again performed without any difficulty. The irrigation and aspiration probe was again employed and any residual viscoelastic was removed from the eye. Then BSS was injected into the limbal stab incision and the anterior chamber re-inflated. The conjunctiva was reapproximated using electrocautery. One drop of 0.25% Timoptic was placed over the corneal along with TobraDex ophthalmic ointment. Two sterile patches and a Olivier eye shield were taped into position. The patient was transported to the recovery room in stable condition. Pathology: none sent Condition: stable Disposition: same day
[2017-07-22 12:34] VITALS: BP 116/60; PULSE 64
[2017-07-22] MEDS ORDERED: BUPIVACAINE (PF) 0.75% 5 ML, HYALURONIDASE, HUMAN RECOMB 150 UNIT, LIDOCAINE 2% (PF) 10... MISCELLANE ONE ×3 (23:00)
[2017-07-22] MEDS ORDERED: TIMOLOL 0.5% OPHTH SOLN (PF) 0.2 ML DROPERETTE OP ONE (23:00)
[2017-07-22] MEDS ORDERED: GENTAMICIN/PREDNISOL AC OPHTH OINT 3.5GM OPHTHALMIC ONE (23:00)
== END 2017-07-22 12:55 | disposition home or self-care (01) ==
LOC: OR 09:41
PROVIDERS: ATTEND Ophthalmology
DX: E11.36 Type 2 diabetes mellitus with diabetic cataract (principal); Z79.4 Long term (current) use of insulin; I20.9 Angina pectoris, unspecified; I10 Essential (primary) hypertension; F17.200 Nicotine dependence, unspecified, uncomplicated; I25.2 Old myocardial infarction; M06.9 Rheumatoid arthritis, unspecified; I71.4 Abdominal aortic aneurysm, without rupture; E66.9 Obesity, unspecified; Z68.32 Body mass index [BMI] 32.0-32.9, adult; Z79.82 Long term (current) use of aspirin; Z79.899 Other long term (current) drug therapy
CPT/HCPCS: 66984; V2632; J3470; J2001; J0171; J2704

== ENCOUNTER 2019-11-19 15:37 | Emergency (ER) | payer MEDICARE ==
[2019-11-19 15:42] VITALS: BP 186/85; PULSE 77; RESP 20; TEMP 98.3
[2019-11-19] MEDS ORDERED: LIDOCAINE 1% INJ 10MG/ML (20 ML MDV) SQ ONE (15:50)
--- NOTE | 2019-11-19 15:53 | ED ---
Wound/Laceration HPI - General Chief Complaint: Wound/Laceration Stated Complaint: Finger injury Time Seen by Provider: 11/19/19 15:43 Source: patient Mode of arrival: ambulatory Limitations: no limitations - History of Present Illness Initial Comments: Patient is 74-year-old male presenting to the emergency department with a chief complaint of a finger injury. Patient states he was using a log splitter when his finger got stuck between the log and then portion of the machine. Patient reports most of the injury happened to the right third digit but there is a partial injury to the distal end of the right fourth digit. Patient reports bleeding and partial damage to the nail the third digit. Patient states the pain is somewhat minimal. The report initial bleeding which has since resolved. He reports full range of motion in both of the digits. Denies any numbness or tingling. Denies taking medication to alleviate the symptoms. States tetanus is up-to-date. - Related Data Home Medications Medication Instructions Recorded Confirmed Aspirin [Adult Low Dose Aspirin EC] 81 mg PO DAILY 05/19/17 07/22/17 Atenolol [Tenormin] 50 mg PO DAILY 05/19/17 07/22/17 Atorvastatin [Lipitor] 20 mg PO QAM 05/19/17 07/22/17 Etanercept [Enbrel] 50 mg SQ TU 05/19/17 07/22/17 Gabapentin [Neurontin] 300 mg PO QID 05/19/17 07/22/17 Insulin Glargine [Lantus] 24 unit SQ HS 05/19/17 07/22/17 metFORMIN HCL [Glucophage] 500 mg PO TID 05/19/17 07/22/17 glipiZIDE [Glucotrol] 5 mg PO AC-[id number] 06/04/17 07/22/17 Previous Rx's Medication Instructions Recorded Lisinopril-Hctz 20-12.5 mg 1 tab PO BID #60 tab 07/08/17 [Zestoretic 20-12.5] Polyethylene Glycol 3350 [Miralax] 17 gm PO DAILY powd.pack 07/08/17 Sennosides [Senokot] 8.6 mg PO BID tab 07/08/17 Cephalexin [Keflex] 500 mg PO BID 5 Days #10 cap 11/19/19 Allergies Allergy/AdvReac Type Severity Reaction Status Date / Time No Known Allergies Allergy Verified 11/19/19 15:42 Review of Systems ROS Statement: Those systems with pertinent positive or pertinent negative responses have been documented in the HPI. ROS Other: All systems not noted in ROS Statement are negative. Past Medical History Past Medical History: Diabetes Mellitus, Hyperlipidemia, Hypertension, Rheumatoid Arthritis (RA) Additional Past Medical History / Comment(s): aortic aneurysm History of Any Multi-Drug Resistant Organisms: None Reported Additional Past Surgical History / Comment(s): hemorrhoidectomy, surgeries for sebaceous cysts Past Anesthesia/Blood Transfusion Reactions: Motion Sickness Past Psychological History: No Psychological Hx Reported Smoking Status: Former smoker Past Alcohol Use History: None Reported Past Drug Use History: None Reported - Past Family History Son(s) Family Medical History: Cancer Additional Family Medical History / Comment(s): brain cancer Brother(s) Family Medical History: Cancer Additional Family Medical History / Comment(s): colon cancer Sister(s) Family Medical History: Cancer General Exam Limitations: no limitations General appearance: alert, in no apparent distress Head exam: Present: atraumatic, normocephalic, normal inspection Eye exam: Present: normal appearance, PERRL, EOMI Pupils: Present: normal accommodation ENT exam: Present: normal exam, mucous membranes moist Neck exam: Present: normal inspection, full ROM Respiratory exam: Present: normal lung sounds bilaterally Cardiovascular Exam: Present: regular rate, normal rhythm, normal heart sounds Extremities exam: Present: full ROM, tenderness (Very mild tenderness at the site of injury.), normal capillary refill, other (+2 ulnar and radial pulses bilaterally.). Absent: normal inspection (Small laceration on the distal end of the third digit. Partial fracture of the nail with mild avulsion. Contusion to the distal end of the fourth digit with no nail damage.) Back exam: Present: normal inspection, full ROM Neurological exam: Present: alert, oriented X3 Psychiatric exam: Present: normal affect, normal mood Skin exam: Present: warm, dry, intact, normal color Course Vital Signs 11/19/19 15:38 Temperature 98.3 F Pulse Rate 77 Respiratory 20 Rate Blood Pressure 186/85 O2 Sat by Pulse 97 Oximetry Procedures - Laceration Laceration #1 Consent Obtained: verbal consent Indication: laceration Site: other (Finger) Size (cm): 2 Description: linear, irregular, clean Depth: simple, single layer Sedation/Analgesia: none Anesthetic Used: lidocaine 1% Anesthesia Technique: nerve block (Digital) Amount (mls): 5 Pre-repair: wound explored, irrigated extensively Type of Sutures: nylon Size of Sutures: 4-0 Number of Sutures: 6 Technique: simple, interrupted Patient Tolerated Procedure: well, no complications - Nerve Block Consent Obtained: verbal consent Local Anesthetic Used: Lidocaine 1% Amount of anesthesia used: 5 Side: right Nerve Blocks: digital Procedure Successful: Yes Complications: none Patient Tolerated Procedure: well, no complications Medical Decision Making - Medical Decision Making Patient is a 74-year-old male presenting to emergency Department with a chief complaint of finger injury. Patient has a laceration and partial injury to the nail of the third digit. X-ray reveals small calcifications at the level of the injury of the distal third digit tuft. However it is unclear whether these are foreign bodies or osseous fractures. This could be old post traumatic changes. The laceration site was thoroughly irrigated with no signs of visible foreign bodies. Patient received a digital block and the nail was sutured down with 6 sutures. Patient tolerated procedure well. His tetanus is up-to-date. Return parameters were thoroughly discussed the patient was up standing and agreeable. He was advised to return to emergency department in 7-10 days for suture removal. Case discussed with physician. Disposition Clinical Impression: Finger injury, Laceration, Injury of nail Disposition: HOME SELF-CARE Condition: Good Instructions (If sedation given, give patient instructions): Care For Your Stitches (DC), Laceration (DC) Additional Instructions: Take prescribed medication as directed. Return to emergency Department in 7-10 days for suture removal. Take Tylenol and Motrin for pain control. Prescriptions: Cephalexin [Keflex] 500 mg PO BID 5 Days #10 cap Is patient prescribed a controlled substance at d/c from ED?: No Referrals: Karl Pike DO [Primary Care Provider] - 1-2 days Time of Disposition: 17:15
--- NOTE | 2019-11-19 16:23 | XR ---
EXAMINATION TYPE: XR hand complete RT DATE OF EXAM: 11/19/2019 COMPARISON: None HISTORY: 3-4th digit injury, laceration TECHNIQUE: Three-view right hand FINDINGS: There is some injury to the distal digit middle finger. Small ossifications or distal to th e tuft of the finger. No acute fracture the remaining portion of the hand are evident. Soft tissues otherwise appear normal . IMPRESSION: 1. Few small calcifications at the level of the injury of the distal third digit tuft. However, it i s unclear whether these are foreign bodies or osseous fracture. Donor sites are not identified. This could be old posttraumatic changes.
== END 2019-11-19 17:36 | disposition home or self-care (01) ==
LOC: EC 15:37
DX: S61.312A Laceration without foreign body of right middle finger with damage to nail, initial encounter (principal); I10 Essential (primary) hypertension; E78.5 Hyperlipidemia, unspecified; E11.9 Type 2 diabetes mellitus without complications; Z79.82 Long term (current) use of aspirin; Z79.4 Long term (current) use of insulin; Z79.899 Other long term (current) drug therapy; Z87.891 Personal history of nicotine dependence; W31.89XA Contact with other specified machinery, initial encounter
CPT/HCPCS: 73130; 99283; 12001; J2001

== ENCOUNTER 2022-02-01 09:32 | Inpatient (IN) | payer MEDICARE ==
[2022-02-01 09:54] LABS: Glucose,Whole Blood 179 mg/dL (70-110)
[2022-02-01] MEDS ORDERED: SODIUM CHLORIDE 0.9% 1,000 ML IV STA (10:12)
[2022-02-01 10:26] LABS: Anisocytosis Slight; HCT 34.4 % (39.0-53.0); HGB 11.4 gm/dL (13.0-17.5); Hypochromasia Slight; MCH 34.6 pg (25.0-35.0); MCHC 33.3 g/dL (31.0-37.0); MCV 103.9 fL (80.0-100.0); Macrocytosis Moderate; Mean Platelet Volume 7.8; Platelet Count 232 k/uL (150-450); Poikilocytosis Moderate; RBC 3.31 m/uL (4.30-5.90); RDW 16.6 % (11.5-15.5); WBC 7.6 k/uL (3.8-10.6)
--- NOTE | 2022-02-01 10:30 | ED ---
General Adult HPI - General Chief complaint: Shortness of Breath Stated complaint: SOB, NVD Time Seen by Provider: 02/01/22 09:45 Source: patient, RN notes reviewed, old records reviewed Mode of arrival: ambulatory Limitations: no limitations - History of Present Illness Initial comments: This is a 76-year-old male presents emergency Department complaining that since Friday started having the dry heaves. Patient states anytime he eats he started having the dry heaves. Patient also complains of epigastric and right upper quadrant pain. Patient denies any shortness breath or difficulty breathing. Patient states even though he has chest pain it also feels worse in the epigastric region Patient denies a fever chills or cough per patient denies any diarrhea. Patient denies any recent injury or trauma. Patient states he's had no abdominal surgeries in the past. - Related Data Home Medications Medication Instructions Recorded Confirmed Aspirin [Adult Low Dose Aspirin EC] 81 mg PO DAILY 05/19/17 07/22/17 Atorvastatin [Lipitor] 20 mg PO QAM 05/19/17 07/22/17 Etanercept [Enbrel] 50 mg SQ TU 05/19/17 07/22/17 Gabapentin [Neurontin] 300 mg PO QID 05/19/17 07/22/17 Insulin Glargine [Lantus Vial] 24 unit SQ HS 05/19/17 07/22/17 atenoloL [Tenormin] 50 mg PO DAILY 05/19/17 07/22/17 metFORMIN HCL [Glucophage] 500 mg PO TID 05/19/17 07/22/17 glipiZIDE [Glucotrol] 5 mg PO AC-BRKFST 06/04/17 07/22/17 Previous Rx's Medication Instructions Recorded Lisinopril-Hctz 20-12.5 mg 1 tab PO BID #60 tab 07/08/17 [Zestoretic 20-12.5] Sennosides [Senokot] 8.6 mg PO BID tab 07/08/17 polyethylene glycoL 3350 [Miralax] 17 gm PO DAILY powd.pack 07/08/17 Cephalexin [Keflex] 500 mg PO BID 5 Days #10 cap 11/19/19 Allergies Allergy/AdvReac Type Severity Reaction Status Date / Time No Known Allergies Allergy Verified 02/01/22 09:38 Review of Systems ROS Statement: Those systems with pertinent positive or pertinent negative responses have been documented in the HPI. ROS Other: All systems not noted in ROS Statement are negative. Past Medical History Past Medical History: Diabetes Mellitus, Hyperlipidemia, Hypertension, Rheumatoid Arthritis (RA) Additional Past Medical History / Comment(s): aortic aneurysm History of Any Multi-Drug Resistant Organisms: None Reported Additional Past Surgical History / Comment(s): hemorrhoidectomy, surgeries for sebaceous cysts Past Anesthesia/Blood Transfusion Reactions: Motion Sickness Past Psychological History: No Psychological Hx Reported Smoking Status: Never smoker Past Alcohol Use History: None Reported Past Drug Use History: None Reported - Past Family History Son(s) Family Medical History: Cancer Additional Family Medical History / Comment(s): brain cancer Brother(s) Family Medical History: Cancer Additional Family Medical History / Comment(s): colon cancer Sister(s) Family Medical History: Cancer General Exam - General Exam Comments Initial Comments: GENERAL: Patient is well-developed and well-nourished. Patient is nontoxic and well- hydrated and is in mild distress. ENT: Neck is soft and supple. No significant lymphadenopathy is noted. Oropharynx is clear. Moist mucous membranes. Neck has full range of motion without eliciting any pain. EYES: The sclera were anicteric and conjunctiva were pink and moist. Extraocular movements were intact and pupils were equal round and reactive to light. Eyelids were unremarkable. PULMONARY Unlabored respirations. Good breath sounds bilaterally. No audible rales rhonchi or wheezing was noted. CARDIOVASCULAR: There is a regular rate and rhythm without any murmurs gallops or rubs. ABDOMEN: Patient is tender in the epigastric and right upper quadrant tenderness. SKIN: Skin is clear with no lesions or rashes and otherwise unremarkable. NEUROLOGIC: Patient is alert and oriented x3. Cranial nerves II through XII are grossly intact. Motor and sensory are also intact. Normal speech, volume and content. Symmetrical smile. MUSCULOSKELETAL: Normal extremities with adequate strength and full range of motion. No lower extremity swelling or edema. No calf tenderness. LYMPHATICS: No significant lymphadenopathy is noted PSYCHIATRIC: Normal psychiatric evaluation. Limitations: no limitations Course Vital Signs 02/01/22 02/01/22 02/01/22 09:34 09:57 10:07 Temperature 98.9 F 98.3 F Pulse Rate 128 H 122 H Respiratory 24 18 22 Rate Blood Pressure 192/97 161/93 O2 Sat by Pulse 97 95 Oximetry 02/01/22 12:48 Temperature Pulse Rate 112 H Respiratory 18 Rate Blood Pressure 161/83 O2 Sat by Pulse 96 Oximetry Medical Decision Making - Medical Decision Making EKG shows sinus rhythm at 126 bpm MI interval is 223 QRS is 124 QT interval 333 QTC is 408. Patient's EKG shows no ST segment elevation or depression. Ultrasound showed no obvious cause for right upper quadrant epigastric abdominal pain I saw chest x-ray shows no acute abnormality. I spoke was found physicians and they agreed to admit the patient to the patient I consult to cardiology - Lab Data Result diagrams: 02/01/22 10:15 02/01/22 10:15 Lab Results 02/01/22 02/01/22 02/01/22 Range/Units 09:53 10:15 10:15 WBC 7.6 (3.8-10.6) k/uL RBC 3.31 L (4.30-5.90) m/uL Hgb 11.4 L (13.0-17.5) gm/dL Hct 34.4 L (39.0-53.0) % MCV 103.9 H (80.0-100.0) fL MCH 34.6 (25.0-35.0) pg MCHC 33.3 (31.0-37.0) g/dL RDW 16.6 H (11.5-15.5) % Plt Count 232 (150-450) k/uL MPV 7.8 Neutrophils % (Manual) 82 % Lymphocytes % (Manual) 9 % Monocytes % (Manual) 8 % Eosinophils % (Manual) 1 % Neutrophils # (Manual) 6.23 (1.3-7.7) k/uL Lymphocytes # (Manual) 0.68 L (1.0-4.8) k/uL Monocytes # (Manual) 0.61 (0-1.0) k/uL Eosinophils # (Manual) 0.08 (0-0.7) k/uL Nucleated RBCs 0 (0-0) /100 WBC Manual Slide Review Performed Hypochromasia Slight Poikilocytosis Moderate Anisocytosis Slight Macrocytosis Moderate D-Dimer (<0.60) mg/L FEU Sodium 133 L (137-145) mmol/L Potassium 4.4 (3.5-5.1) mmol/L Chloride 105 (98-107) mmol/L Carbon Dioxide 15 L (22-30) mmol/L Anion Gap 13 mmol/L BUN 20 (9-20) mg/dL Creatinine 1.15 (0.66-1.25) mg/dL Est GFR (CKD-EPI)AfAm 71 (>60 ml/min/1.73 sqM) Est GFR (CKD-EPI)NonAf 61 (>60 ml/min/1.73 sqM) Glucose 181 H (74-99) mg/dL POC Glucose (mg/dL) 179 H (70-110) mg/dL POC Glu Family Support Coordinator ID Chivo Hughes Plasma Lactic Acid Hernán (0.7-2.0) mmol/L Calcium 8.5 (8.4-10.2) mg/dL Total Bilirubin 1.9 H (0.2-1.3) mg/dL AST 55 (17-59) U/L ALT 53 H (4-49) U/L Alkaline Phosphatase 46 (38-126) U/L Troponin I (0.000-0.034) ng/mL Total Protein 6.2 L (6.3-8.2) g/dL Albumin 3.4 L (3.5-5.0) g/dL Amylase 135 H (30-110) U/L Lipase 504 H (23-300) U/L Coronavirus (PCR) (Not Detectd) 02/01/22 02/01/22 02/01/22 Range/Units 10:15 10:15 13:25 WBC (3.8-10.6) k/uL RBC (4.30-5.90) m/uL Hgb (13.0-17.5) gm/dL Hct (39.0-53.0) % MCV (80.0-100.0) fL MCH (25.0-35.0) pg MCHC (31.0-37.0) g/dL RDW (11.5-15.5) % Plt Count (150-450) k/uL MPV Neutrophils % (Manual) % Lymphocytes % (Manual) % Monocytes % (Manual) % Eosinophils % (Manual) % Neutrophils # (Manual) (1.3-7.7) k/uL Lymphocytes # (Manual) (1.0-4.8) k/uL Monocytes # (Manual) (0-1.0) k/uL Eosinophils # (Manual) (0-0.7) k/uL Nucleated RBCs (0-0) /100 WBC Manual Slide Review Hypochromasia Poikilocytosis Anisocytosis Macrocytosis D-Dimer (<0.60) mg/L FEU Sodium (137-145) mmol/L Potassium (3.5-5.1) mmol/L Chloride (98-107) mmol/L Carbon Dioxide (22-30) mmol/L Anion Gap mmol/L BUN (9-20) mg/dL Creatinine (0.66-1.25) mg/dL Est GFR (CKD-EPI)AfAm (>60 ml/min/1.73 sqM) Est GFR (CKD-EPI)NonAf (>60 ml/min/1.73 sqM) Glucose (74-99) mg/dL POC Glucose (mg/dL) (70-110) mg/dL POC Glu Family Support Coordinator ID Plasma Lactic Acid Hernán 1.6 (0.7-2.0) mmol/L Calcium (8.4-10.2) mg/dL Total Bilirubin (0.2-1.3) mg/dL AST (17-59) U/L ALT (4-49) U/L Alkaline Phosphatase (38-126) U/L Troponin I 0.053 H* (0.000-0.034) ng/mL Total Protein (6.3-8.2) g/dL Albumin (3.5-5.0) g/dL Amylase (30-110) U/L Lipase (23-300) U/L Coronavirus (PCR) Not Detected (Not Detectd) 02/01/22 Range/Units 13:25 WBC (3.8-10.6) k/uL RBC (4.30-5.90) m/uL Hgb (13.0-17.5) gm/dL Hct (39.0-53.0) % MCV (80.0-100.0) fL MCH (25.0-35.0) pg MCHC (31.0-37.0) g/dL RDW (11.5-15.5) % Plt Count (150-450) k/uL MPV Neutrophils % (Manual) % Lymphocytes % (Manual) % Monocytes % (Manual) % Eosinophils % (Manual) % Neutrophils # (Manual) (1.3-7.7) k/uL Lymphocytes # (Manual) (1.0-4.8) k/uL Monocytes # (Manual) (0-1.0) k/uL Eosinophils # (Manual) (0-0.7) k/uL Nucleated RBCs (0-0) /100 WBC Manual Slide Review Hypochromasia Poikilocytosis Anisocytosis Macrocytosis D-Dimer 2.12 H (<0.60) mg/L FEU Sodium (137-145) mmol/L Potassium (3.5-5.1) mmol/L Chloride (98-107) mmol/L Carbon Dioxide (22-30) mmol/L Anion Gap mmol/L BUN (9-20) mg/dL Creatinine (0.66-1.25) mg/dL Est GFR (CKD-EPI)AfAm (>60 ml/min/1.73 sqM) Est GFR (CKD-EPI)NonAf (>60 ml/min/1.73 sqM) Glucose (74-99) mg/dL POC Glucose (mg/dL) (70-110) mg/dL POC Glu Family Support Coordinator ID Plasma Lactic Acid Hernán (0.7-2.0) mmol/L Calcium (8.4-10.2) mg/dL Total Bilirubin (0.2-1.3) mg/dL AST (17-59) U/L ALT (4-49) U/L Alkaline Phosphatase (38-126) U/L Troponin I (0.000-0.034) ng/mL Total Protein (6.3-8.2) g/dL Albumin (3.5-5.0) g/dL Amylase (30-110) U/L Lipase (23-300) U/L Coronavirus (PCR) (Not Detectd) Disposition Clinical Impression: Chest pain, Epigastric abdominal pain, Elevated troponin, Tachycardia Disposition: ADMITTED IP TO THIS [facility] Referrals: Karl Pike DO [Primary Care Provider] - 1-2 days Time of Disposition: 14:25
[2022-02-01 10:37] LABS: Albumin 3.4 g/dL (3.5-5.0); Calcium 8.5 mg/dL (8.4-10.2); Potassium 4.4 mmol/L (3.5-5.1); Total Bilirubin 1.9 mg/dL (0.2-1.3); Total Protein 6.2 g/dL (6.3-8.2)
[2022-02-01 10:57] LABS: Eosinophils # (M) 0.08 k/uL (0-0.7); Lymphocytes # (M) 0.68 k/uL (1.0-4.8); Monocytes # (M) 0.61 k/uL (0-1.0); Neutrophils # (M) 6.23 k/uL (1.3-7.7); Neutrophils % (M) 82 %; Nucleated Red Blood Cells 0 /100 WBC (0-0); Total Cells Counted 100
--- NOTE | 2022-02-01 12:29 | US ---
EXAMINATION TYPE: US gallbladder DATE OF EXAM: 02/01/2022 COMPARISON: NONE CLINICAL HISTORY: Right upper quadrant abdominal pain. Pain, nausea and vomiting. TECHNIQUE: Multiple sonographic images of the right upper quadrant are obtained. Known AAA. Exam limi tations due to body habitus patient barrel chested. 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 IMPRESSION: 1. No evidence for acute abdominal process. 2. Hepatocellular disease commonly relating to hepatic steatosis.
--- NOTE | 2022-02-01 14:20 | XR ---
EXAMINATION TYPE: XR chest 2V DATE OF EXAM: 02/01/2022 COMPARISON: Chest x-ray July 06, 2017 HISTORY: Difficulty in breathing. TECHNIQUE: Frontal and lateral views of the chest are obtained. FINDINGS: There is no suspicious focal air space opacity, pleural effusion, or pneumothorax seen. T he cardiac silhouette size is enlarged. Multilevel spurring in the thoracic spine is present. IMPRESSION: Cardiomegaly without acute pulmonary process. No significant change from prior.
[2022-02-01] MEDS ORDERED: HEPARIN SODIUM 1,000 UN/ML (10ML VL) IV ONE (15:20)
[2022-02-01] MEDS: HEPARIN SOD,PORK IN 0.45% NACL 25,000 UNIT in 0.45% NACL 1 250ML.BAG IV SCH (15:36)
--- NOTE | 2022-02-01 15:44 | CT ---
EXAMINATION TYPE: CT chest angio for PE CT DLP: 420 mGycm, Automated exposure control for dose reduction was used. DATE OF EXAM: 02/01/2022 3:26 PM COMPARISON: Chest radiograph from same day. CLINICAL INDICATION:Male, 76 years old with history of Chest pain; TECHNIQUE/CONTRAST: CTA scan of the thorax is performed with IV Contrast, patient injected with 100 mL of Isovue 370, pul monary embolism protocol. MIP images are created and reviewed. FINDINGS: Pulmonary Artery: Filling defects are seen within the pulmonary vasculature including the right middl e, right lower and left upper lobes lobar and segmental pulmonary arteries.. No evidence of right hea rt strain. The pulmonary artery is of normal size. Lungs/Pleura: Few groundglass opacities are seen throughout the lungs felt to be due to combination o f low lung volumes and expiratory imaging. Scattered peripheral ground glass opacities could represen t early pulmonary infarct. No evidence of focal consolidation, pleural effusion or pneumothorax. Airway: Large airways are patent. Heart: The heart is mildly enlarged for size. There is atherosclerosis of the coronary arteries. Vasculature: No evidence of aortic aneurysm. The ascending thoracic aorta is mildly dilated measuring 4.3 cm. Scattered atherosclerosis of the arterial vasculature. Three-vessel aortic arch which appear s patent. Mediastinum: No gross evidence of adenopathy. Musculoskeletal: No acute osseous abnormalities Soft Tissues: Unremarkable. Lower neck: No significant findings. Upper Abdomen: Left adrenal nodule measuring 2.1 cm has mildly increased in size from prior in 2011. There is a nodular contour to liver. IMPRESSION: 1. Pulmonary emboli involving the right middle, right lower and left upper lobes segmental pulmonary arteries. No definitive evidence of right heart strain. 2. Peripheral round glass opacities could represent early pulmonary infarct. 3. Hepatic cirrhosis. 4. Colonic diverticulosis. 5. Mild cardiomegaly mild coronary artery atherosclerosis. 6. Left adrenal nodule 50 with benign lipid rich adrenal adenoma mildly increased in size from 2012.
[2022-02-01 15:51] LABS: Anisocytosis Slight; HCT 30.5 % (39.0-53.0); HGB 10.4 gm/dL (13.0-17.5); Hypochromasia Slight; MCH 35.4 pg (25.0-35.0); MCV 103.9 fL (80.0-100.0); Macrocytosis Moderate; Mean Platelet Volume 7.9; Platelet Count 197 k/uL (150-450); Poikilocytosis Moderate; RBC 2.94 m/uL (4.30-5.90); RDW 16.8 % (11.5-15.5); WBC 5.6 k/uL (3.8-10.6)
--- NOTE | 2022-02-01 16:01 | P.HPIM ---
History of Present Illness H&P Date: 02/01/22 Chief Complaint: Abdominal, chest pain 76-year-old man with medical history of hypertension, hyperlipidemia, diabetes, rheumatoid arthritis on chronic steroids presented for abdominal, chest pain. Patient says that for the last 1 week he's noticed that he has had difficulty eating, in which she had nausea and vomiting directly after trying to take in anything my mouth. Consequently, he has not taken any of his medications this week. Furthermore, he noticed that his stools have become soft and black and are associated with a burning type pain in his stomach. He also reports to me that he's had associated difficulty breathing with ambulation. He denies fevers, chills, palpitations, syncope, presyncope, constipation, dysuria, dyschezia, numbness/weakness of extremities. In the emergency room, patient is afebrile, 168/72, heart rate 110, 96% on room air. CBC shows mild anemia down to 11.4, MCV of 103.9. Chemistries show a low sodium at 133, CO2 of 15. Liver function tests show total bilirubin of 1.9, ALT of 53, total protein of 6.2, albumin of 3.4. Amylase was 135. Lipase was 504. D-dimer was elevated at 2.12. Covid was negative. Patient underwent gallbladder ultrasound which showed no evidence for an acute abdominal process. Chest x-ray demonstrated cardiomegaly but no acute pulmonary process. Chest CTA was significant for pulmonary emboli involving the right middle, right lower, left upper lobes, with no evidence of right heart strain as well as peripheral ground last opacities that could represent early pulmonary infarct. EKG showed tachycardia with an ectopic atrial pacemaker, right bundle brandie block, left anterior fascicular block, LVH. All Systems reviewed and pertinent positives and negatives noted in HPI, all other symptoms are negative Gen: in no apparent distress, resting comfortably in bed Eyes: PERRL, no scleral injection or icterus HENT: normocephalic, atraumatic, good hearing acuity, moist mucous membranes Neck: no tracheal deviation, full range of motion Resp: good air exchange, breathing comfortably with no accessory muscle use, no tactile fremitus CVS: good distal perfusion x 4, no pitting edema GI: soft, epigastric tenderness to palpation, ND, no hepatosplenomegaly : no suprapubic tenderness, no CVAT, alexis catheter not present MSK: no clubbing, no cyanosis, no noted contractures of extremities Skin: no noted rashes, petechiae; temperature of skin is appropriate Neuro: moving all extremities without signs of weakness, CN II-XII intact Psych: cooperative, euthymic mood, insight and judgment intact Labs and imaging reviewed as above Assessment/plan: Acute submassive pulmonary embolism Elevated troponin -Admit to inpatient, telemetry -Heparin drip -Echo -BNP -Trend troponins -Cardiology consulted -Pulmonary consulted Abdominal pain Diarrhea Macrocytic anemia -CBC every 6 hours, hold heparin if hemoglobin has significant drop -Gen. 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 DVT PPx covered with heparin gtt Past Medical History Past Medical History: Diabetes Mellitus, Hyperlipidemia, Hypertension, Rheumatoid Arthritis (RA) Additional Past Medical History / Comment(s): aortic aneurysm History of Any Multi-Drug Resistant Organisms: None Reported Additional Past Surgical History / Comment(s): hemorrhoidectomy, surgeries for sebaceous cysts Past Anesthesia/Blood Transfusion Reactions: Motion Sickness Past Psychological History: No Psychological Hx Reported Smoking Status: Never smoker Past Alcohol Use History: None Reported Past Drug Use History: None Reported - Past Family History Son(s) Family Medical History: Cancer Additional Family Medical History / Comment(s): brain cancer Brother(s) Family Medical History: Cancer Additional Family Medical History / Comment(s): colon cancer Sister(s) Family Medical History: Cancer Medications and Allergies Home Medications Medication Instructions Recorded Confirmed Type Aspirin [Adult Low Dose Aspirin EC] 81 mg PO DAILY 05/19/17 07/22/17 History Atorvastatin [Lipitor] 20 mg PO QAM 05/19/17 07/22/17 History Etanercept [Enbrel] 50 mg SQ TU 05/19/17 07/22/17 History Gabapentin [Neurontin] 300 mg PO QID 05/19/17 07/22/17 History Insulin Glargine [Lantus Vial] 24 unit SQ HS 05/19/17 07/22/17 History atenoloL [Tenormin] 50 mg PO DAILY 05/19/17 07/22/17 History metFORMIN HCL [Glucophage] 500 mg PO TID 05/19/17 07/22/17 History glipiZIDE [Glucotrol] 5 mg PO AC-BRKFST 06/04/17 07/22/17 History Lisinopril-Hctz 20-12.5 mg 1 tab PO BID #60 tab 07/08/17 07/22/17 Rx [Zestoretic 20-12.5] Sennosides [Senokot] 8.6 mg PO BID tab 07/08/17 07/22/17 Rx polyethylene glycoL 3350 [Miralax] 17 gm PO DAILY powd.pack 07/08/17 07/22/17 Rx Cephalexin [Keflex] 500 mg PO BID 5 Days #10 cap 11/19/19 Rx Allergies Allergy/AdvReac Type Severity Reaction Status Date / Time No Known Allergies Allergy Verified 02/01/22 09:38 Physical Exam Osteopathic Statement: *. No significant issues noted on an osteopathic structural exam other than those noted in the History and Physical/Consult. Vitals: Vital Signs Temp Pulse Resp BP Pulse Ox 02/01/22 14:30 62 16 168/72 98 02/01/22 12:48 112 H 18 161/83 96 02/01/22 10:07 22 02/01/22 09:57 98.3 F 122 H 18 161/93 95 02/01/22 09:34 98.9 F 128 H 24 192/97 97 Intake and Output 02/01/22 02/01/22 02/01/22 06:59 14:59 22:59 Other: Weight 90.265 kg Results CBC & Chem 7: 02/01/22 10:15 02/01/22 10:15 Labs: Abnormal Lab Results - Last 24 Hours (Table) 02/01/22 02/01/22 02/01/22 Range/Units 09:53 10:15 10:15 RBC 3.31 L (4.30-5.90) m/uL Hgb 11.4 L (13.0-17.5) gm/dL Hct 34.4 L (39.0-53.0) % MCV 103.9 H (80.0-100.0) fL RDW 16.6 H (11.5-15.5) % Lymphocytes # (Manual) 0.68 L (1.0-4.8) k/uL D-Dimer (<0.60) mg/L FEU Sodium 133 L (137-145) mmol/L Carbon Dioxide 15 L (22-30) mmol/L Glucose 181 H (74-99) mg/dL POC Glucose (mg/dL) 179 H (70-110) mg/dL Total Bilirubin 1.9 H (0.2-1.3) mg/dL ALT 53 H (4-49) U/L Troponin I (0.000-0.034) ng/mL Total Protein 6.2 L (6.3-8.2) g/dL Albumin 3.4 L (3.5-5.0) g/dL Amylase 135 H (30-110) U/L Lipase 504 H (23-300) U/L 02/01/22 02/01/22 Range/Units 10:15 13:25 RBC (4.30-5.90) m/uL Hgb (13.0-17.5) gm/dL Hct (39.0-53.0) % MCV (80.0-100.0) fL RDW (11.5-15.5) % Lymphocytes # (Manual) (1.0-4.8) k/uL D-Dimer 2.12 H (<0.60) mg/L FEU Sodium (137-145) mmol/L Carbon Dioxide (22-30) mmol/L Glucose (74-99) mg/dL POC Glucose (mg/dL) (70-110) mg/dL Total Bilirubin (0.2-1.3) mg/dL ALT (4-49) U/L Troponin I 0.053 H* (0.000-0.034) ng/mL Total Protein (6.3-8.2) g/dL Albumin (3.5-5.0) g/dL Amylase (30-110) U/L Lipase (23-300) U/L
[2022-02-01 16:41] LABS: Reticulocyte % 4.7 % (0.5-2.0)
[2022-02-01 16:42] LABS: Band Neutrophils % 3 %; Eosinophils # (M) 0.06 k/uL (0-0.7); Lymphocytes # (M) 1.01 k/uL (1.0-4.8); Monocytes # (M) 0.28 k/uL (0-1.0); Neutrophils % (M) 73 %; Nucleated Red Blood Cells 0 /100 WBC (0-0); Polychromasia Present; Total Cells Counted 100
[2022-02-01] MEDS: GABAPENTIN 300 MG CAP PO SCH ×2 (18:03→20:09)
[2022-02-01 19:30] LABS: Glucose,Whole Blood 244 mg/dL (70-110)
[2022-02-01] MEDS ORDERED: cloNIDine HCL 0.2 MG TAB PO PRN (19:37)
[2022-02-01] MEDS: atenoloL 50 MG TAB PO SCH (20:09)
[2022-02-01] MEDS: INSULIN ASPART (NovoLOG) 100 UNIT/ML VIAL SQ SCH (20:09)
[2022-02-01] MEDS: PANTOPRAZOLE 40 MG/10 ML VIAL IVP SCH (20:09)
[2022-02-01 21:44] LABS: Anisocytosis Slight; HCT 30.3 % (39.0-53.0); HGB 9.9 gm/dL (13.0-17.5); Hypochromasia Slight; MCH 33.8 pg (25.0-35.0); MCHC 32.5 g/dL (31.0-37.0); MCV 103.9 fL (80.0-100.0); Macrocytosis Moderate; Platelet Count 212 k/uL (150-450); Poikilocytosis Moderate; RBC 2.92 m/uL (4.30-5.90); RDW 16.8 % (11.5-15.5)
[2022-02-01 22:48] LABS: Lymphocytes # (M) 0.84 k/uL (1.0-4.8); Monocytes # (M) 0.42 k/uL (0-1.0); Neutrophils # (M) 5.74 k/uL (1.3-7.7); Neutrophils % (M) 82 %; Nucleated Red Blood Cells 0 /100 WBC (0-0); Total Cells Counted 100
[2022-02-01 22:50] LABS: Polychromasia Present
[2022-02-02 05:53] LABS: Glucose,Whole Blood 118 mg/dL (70-110)
[2022-02-02] MEDS: INSULIN ASPART (NovoLOG) 100 UNIT/ML VIAL SQ SCH ×3 (06:57→18:42)
[2022-02-02 06:58] LABS: Glucose,Whole Blood 111 mg/dL (70-110)
--- NOTE | 2022-02-02 08:32 | P.CRDCN ---
History of Present Illness Consult date: 02/02/22 Chief complaint: Epigastric discomfort History of present illness: This is a 76-year-old gentleman with a past medical history significant for rh eumatoid arthritis as well as diabetes and hypertension and dyslipidemia presented to the hospital complaining of epigastric discomfort started about a week ago. The patient somewhat is a poor historian. He states that the discomfort started about a week ago and mainly in the epigastric area and upper chest as well. His symptoms were associated with nausea and vomiting as well as. He also reports some shortness of breath. No dizziness or lightheadedness and no feeling of heart racing or fluttering and no presyncope or syncope. He denies any fever or chills. 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 Subsequently he underwent a d-dimer and that came in to be elevated. Computed tomography scan of the chest was performed and showed pulmonary embolism involving the right middle and right lower and left upper lobe. No evidence of RV strain seen by the computed tomography scan but we are getting an echocardiogram for further clarification. Otherwise the patient seems to be hemodynamically stable. When he presented to the hospital he was tachycardic but currently his heart rate is within normal limits. He is maintaining normal blood pressure. He is not on any oxygen. Bes anderson the mildly elevated troponin his NT proBNP was within normal limits. He seems to be not in any pain or distress when he was seen and examined. No history of DVT and no history of PE before. Past Medical History Past Medical History: Diabetes Mellitus, Hyperlipidemia, Hypertension, Rheumatoid Arthritis (RA) Additional Past Medical History / Comment(s): aortic aneurysm History of Any Multi-Drug Resistant Organisms: None Reported Past Surgical History: Hernia Repair Additional Past Surgical History / Comment(s): hemorrhoidectomy, surgeries for sebaceous cysts Past Anesthesia/Blood Transfusion Reactions: Motion Sickness Past Psychological History: No Psychological Hx Reported Additional Psychological History / Comment(s): and lives with his . Retired from the [employer]. 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 None of the animals have been ill, no other family members have been ill. Patient's has only had a cold. 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 No International travel. Was in the [employer] without international travel. Tobacco smoker stopping in his 30s. No significant alcohol use. Smoking Status: Never smoker Past Alcohol Use History: None Reported Additional Past Alcohol Use History / Comment(s): smoked age [age] 1ppd Past Drug Use History: None Reported - Past Family History Son(s) Family Medical History: Cancer Additional Family Medical History / Comment(s): brain cancer Brother(s) Family Medical History: Cancer Additional Family Medical History / Comment(s): colon cancer Sister(s) Family Medical History: Cancer Medications and Allergies Home Medications Medication Instructions Recorded Confirmed Type Aspirin [Adult Low Dose Aspirin EC] 81 mg PO DAILY 05/19/17 02/01/22 History Atorvastatin [Lipitor] 20 mg PO DAILY 05/19/17 02/01/22 History Etanercept [Enbrel] 50 mg SQ WE 05/19/17 02/01/22 History atenoloL [Tenormin] 50 mg PO BID 05/19/17 02/01/22 History metFORMIN HCL [Glucophage] 500 mg PO BID 05/19/17 02/01/22 History Calcium Carbonate [Calcium] 600 mg PO DAILY 02/01/22 02/01/22 History Cholecalciferol [Vitamin D3 (25 25 mcg PO DAILY 02/01/22 02/01/22 History Mcg = 1000 Iu)] Empagliflozin [Jardiance] 25 mg PO DAILY 02/01/22 02/01/22 History Folic Acid 1 mg PO DAILY 02/01/22 02/01/22 History Gabapentin 600 mg PO TID 02/01/22 02/01/22 History Glimepiride [Amaryl] 2 mg PO W/BRKFST 02/01/22 02/01/22 History lisinopriL 30 mg PO DAILY 02/01/22 02/01/22 History metHOTREXate sodium [Methotrexate] 25 mg PO HEIN 02/01/22 02/01/22 History predniSONE 10 mg PO DAILY 02/01/22 02/01/22 History Allergies Allergy/AdvReac Type Severity Reaction Status Date / Time No Known Allergies Allergy Verified 02/01/22 15:49 Physical Exam Vitals: Vital Signs Temp Pulse Pulse Resp BP BP Pulse Ox 02/02/22 04:00 98.0 F 80 18 114/62 96 02/02/22 01:43 85 18 02/01/22 23:49 85 18 122/74 97 02/01/22 20:00 98.4 F 120 H 20 182/96 94 L 02/01/22 19:13 98.7 F 128 H 24 185/87 96 02/01/22 18:05 118 H 20 186/95 98 02/01/22 17:55 110 H 20 179/100 98 02/01/22 16:53 110 H 20 153/79 97 02/01/22 15:30 100 16 148/72 98 02/01/22 14:30 62 16 168/72 98 02/01/22 12:48 112 H 18 161/83 96 02/01/22 11:30 63 16 160/60 98 02/01/22 10:07 22 02/01/22 09:57 98.3 F 122 H 18 161/93 95 02/01/22 09:34 98.9 F 128 H 24 192/97 97 Intake and Output 02/01/22 02/02/22 02/02/22 22:59 06:59 14:59 Intake Total 118.069 240 Output Total 300 Balance 118.069 -60 Intake: Intake, IV Titration 118.069 Amount Heparin Sod,Pork in 0.45% 118.069 NaCl 25,000 unit In 0.45 % NaCl 1 250ml.bag @ 18 UNITS/KG/HR 16.248 mls/hr IV .[id number] [facility] Rx#: [id number] Oral 240 Output: Urine 300 Other: # Bowel Movements 1 Weight 90.265 kg - Constitutional General appearance: no acute distress - Respiratory Respiratory: bilateral: diminished - Cardiovascular Rhythm: regular Heart sounds: normal: S1, S2 Abnormal Heart Sounds: systolic murmur Results 02/01/22 21:26 02/01/22 10:15 Cardiac Enzymes 02/01/22 02/01/22 Range/Units 10:15 10:15 AST 55 (17-59) U/L Troponin I 0.053 H* (0.000-0.034) ng/mL Coagulation 02/01/22 Range/Units 21:26 APTT 92.8 H (22.0-30.0) sec CBC 02/01/22 02/01/22 02/01/22 Range/Units 10:15 15:37 21:26 WBC 7.6 5.6 7.0 (3.8-10.6) k/uL RBC 3.31 L 2.94 L 2.92 L (4.30-5.90) m/uL Hgb 11.4 L 10.4 L 9.9 L (13.0-17.5) gm/dL Hct 34.4 L 30.5 L 30.3 L (39.0-53.0) % Plt Count 232 197 212 (150-450) k/uL Comprehensive Metabolic Panel 02/01/22 Range/Units 10:15 Sodium 133 L (137-145) mmol/L Potassium 4.4 (3.5-5.1) mmol/L Chloride 105 (98-107) mmol/L Carbon Dioxide 15 L (22-30) mmol/L BUN 20 (9-20) mg/dL Creatinine 1.15 (0.66-1.25) mg/dL Glucose 181 H (74-99) mg/dL Calcium 8.5 (8.4-10.2) mg/dL AST 55 (17-59) U/L ALT 53 H (4-49) U/L Alkaline Phosphatase 46 (38-126) U/L Total Protein 6.2 L (6.3-8.2) g/dL Albumin 3.4 L (3.5-5.0) g/dL Current Medications Generic Name Dose Route Start Last Admin Trade Name Freq PRN Reason Stop Dose Admin Aspirin 81 mg 02/02/22 09:00 Aspirin 81 Mg PO DAILY [facility] Atenolol 50 mg 02/01/22 21:00 02/01/22 20:09 Atenolol 50 Mg Tab PO 50 mg BID DAVID Administration Atorvastatin Calcium 20 mg 02/02/22 09:00 Atorvastatin 20 Mg Tab PO DAILY [facility] Calcium Carbonate/Glycine 500 mg 02/02/22 09:00 Calcium Carbonate 500 Mg Chewable PO DAILY [facility] Cholecalciferol 25 mcg 02/02/22 09:00 Cholecalciferol 25 Mcg (1000 Iu) Tablet PO DAILY [facility] Clonidine 0.2 mg 02/01/22 19:37 02/01/22 20:09 Clonidine Hcl 0.2 Mg Tab PO 0.2 mg TID PRN Administration Blood Pressure - High Folic Acid 1 mg 02/02/22 09:00 Folic Acid 1 Mg Tab PO DAILY [facility] Gabapentin 600 mg 02/01/22 16:00 02/01/22 20:09 Gabapentin 300 Mg Cap PO 600 mg TID DAVID Administration Heparin Sodium/Sodium Chloride 250 mls @ 16.248 mls/hr 02/01/22 15:30 02/01/22 22:52 25,000 unit/ Sodium Chloride IV 16 units/kg/hr .[id number] [facility] 14.442 mls/hr Titration Protocol 18 UNITS/KG/HR Insulin Aspart 0 unit 02/01/22 17:30 02/02/22 06:57 Insulin Aspart (Novolog) 100 Unit/Ml Vial SQ Not Given AC-TID [facility] Protocol Lisinopril 30 mg 02/02/22 09:00 Lisinopril 10 Mg Tab PO DAILY [facility] Methotrexate 25 mg 02/03/22 15:58 Methotrexate Sodium 2.5 Mg Tab PO HEIN [facility] Pantoprazole Sodium 40 mg 02/01/22 21:00 02/01/22 20:09 Pantoprazole 40 Mg/10 Ml Vial IVP 40 mg BID DAVID Administration Intake and Output 02/01/22 02/02/22 02/02/22 22:59 06:59 14:59 Intake Total 118.069 240 Output Total 300 Balance 118.069 -60 Intake: Intake, IV Titration 118.069 Amount Heparin Sod,Pork in 0.45% 118.069 NaCl 25,000 unit In 0.45 % NaCl 1 250ml.bag @ 18 UNITS/KG/HR 16.248 mls/hr IV .[id number] [facility] Rx#: [id number] Oral 240 Output: Urine 300 Other: # Bowel Movements 1 Weight 90.265 kg 02/01/22 21:26 02/01/22 10:15 Assessment and Plan Assessment: Assessment #1 pulmonary embolism, differential diagnosis is non-massive versus submassive #2 sinus tachycardia secondary to pulmonary embolism which has improved #3 mildly elevated troponin #4 hypertension #5 distal PDA #6 rheumatoid arthritis Plan #1 continue heparin IV for now #2 consider oral anticoagulation #3 obtain an echocardiogram was Doppler to assess for any R predilatation/strain #4 follow-up with the pain
[2022-02-02 08:42] LABS: Anisocytosis Slight; HCT 30.7 % (39.0-53.0); Hypochromasia Moderate; MCH 34.6 pg (25.0-35.0); MCHC 32.6 g/dL (31.0-37.0); MCV 106.4 fL (80.0-100.0); Macrocytosis Marked; Mean Platelet Volume 8.6; Platelet Count 223 k/uL (150-450); Poikilocytosis Moderate; RBC 2.88 m/uL (4.30-5.90); RDW 17.1 % (11.5-15.5); WBC 6.3 k/uL (3.8-10.6)
[2022-02-02] MEDS: atenoloL 50 MG TAB PO SCH ×2 (09:16→20:07)
[2022-02-02] MEDS: ATORVASTATIN 20 MG TAB PO SCH (09:16)
[2022-02-02] MEDS: HEPARIN SOD,PORK IN 0.45% NACL 25,000 UNIT in 0.45% NACL 1 250ML.BAG IV SCH (09:16)
[2022-02-02] MEDS: ASPIRIN 81 MG PO SCH (09:16)
[2022-02-02] MEDS: lisinopriL 10 MG TAB PO SCH (09:16)
[2022-02-02] MEDS: GABAPENTIN 300 MG CAP PO SCH ×3 (09:16→20:07)
[2022-02-02] MEDS: CALCIUM CARBONATE 500 MG CHEWABLE PO SCH (09:16)
[2022-02-02] MEDS: FOLIC ACID 1 MG TAB PO SCH (09:16)
[2022-02-02] MEDS: CHOLECALCIFEROL 25 MCG (1000 IU) TABLET PO SCH (09:16)
[2022-02-02 09:28] LABS: Nucleated Red Blood Cells 0 /100 WBC (0-0)
[2022-02-02 09:30] LABS: Basophils # (M) 0.06 k/uL (0-0.2); Eosinophils # (M) 0.13 k/uL (0-0.7); Lymphocytes # (M) 0.82 k/uL (1.0-4.8); Monocytes # (M) 0.95 k/uL (0-1.0); Neutrophils # (M) 4.35 k/uL (1.3-7.7); Neutrophils % (M) 69 %; Total Cells Counted 100
[2022-02-02 09:33] LABS: Polychromasia Present
[2022-02-02 09:42] LABS: African American GFR (CKD) 56 (>60 ml/min/1.73 sqM); Anion Gap 8 mmol/L; Blood Urea Nitrogen 21 mg/dL (9-20); Calcium 8.5 mg/dL (8.4-10.2); Carbon Dioxide 21 mmol/L (22-30); Chloride 104 mmol/L (98-107); Glucose 111 mg/dL (74-99); Magnesium 2.1 mg/dL (1.6-2.3); Non-African American GFR(CKD) 49 (>60 ml/min/1.73 sqM); Potassium 3.8 mmol/L (3.5-5.1); Sodium 133 mmol/L (137-145)
--- NOTE | 2022-02-02 10:41 | P.PN ---
Subjective Progress Note Date: 02/02/22 Principal diagnosis: Chief complaint: Follow-up pulmonary embolism Subjective: The patient was seen and examined. The patient's family by the bedside. The patient states that the shortness of breath is improving today. No dyspnea reported. Patient stated that several days ago he had bilateral leg pain but it's improving. No acute events overnight. Patient is currently on heparin drip. Waiting for echocardiogram. Objective - Vital Signs Vital signs: Vital Signs Temp 98.0 F 02/02/22 04:00 Pulse 80 02/02/22 04:00 Resp 18 02/02/22 04:00 BP 114/62 02/02/22 04:00 Pulse Ox 96 02/02/22 04:00 FiO2 Intake & Output 02/01/22 02/02/22 02/02/22 18:59 06:59 18:59 Intake Total 358.069 131.931 Output Total 300 Balance 58.069 131.931 Weight 90.265 kg Intake: Intake, IV Titration 118.069 131.931 Amount Heparin Sod,Pork in 0.45% 118.069 131.931 NaCl 25,000 unit In 0.45 % NaCl 1 250ml.bag @ 18 UNITS/KG/HR 16.248 mls/hr IV .[id number] [facility] Rx#: [id number] Oral 240 Output: Urine 300 Other: # Bowel Movements 1 - Exam General, alert oriented 1 have been dispensed Neck supple no JVD no lymphadenopathy Heart: Sinus rhythm. No murmurs. Lungs: Decreased air entry bilaterally. No crackles or wheezing. Abdomen, obese, soft nondistended nontender positive as well as quadrants Extremities: Bilateral legs. No swelling or tenderness. - Labs CBC & Chem 7: 02/02/22 07:26 02/02/22 07:26 Labs: Abnormal Lab Results - Last 24 Hours (Table) 02/01/22 02/01/22 02/01/22 Range/Units 10:15 10:15 10:15 RBC 3.31 L (4.30-5.90) m/uL Hgb 11.4 L (13.0-17.5) gm/dL Hct 34.4 L (39.0-53.0) % MCV 103.9 H (80.0-100.0) fL MCH (25.0-35.0) pg RDW 16.6 H (11.5-15.5) % Lymphocytes # (Manual) 0.68 L (1.0-4.8) k/uL Macrocytosis Retic Count (0.5-2.0) % APTT (22.0-30.0) sec D-Dimer (<0.60) mg/L FEU Sodium 133 L (137-145) mmol/L Carbon Dioxide 15 L (22-30) mmol/L BUN (9-20) mg/dL Creatinine (0.66-1.25) mg/dL Glucose 181 H (74-99) mg/dL POC Glucose (mg/dL) (70-110) mg/dL Total Bilirubin 1.9 H (0.2-1.3) mg/dL ALT 53 H (4-49) U/L Troponin I 0.053 H* (0.000-0.034) ng/mL Total Protein 6.2 L (6.3-8.2) g/dL Albumin 3.4 L (3.5-5.0) g/dL Amylase 135 H (30-110) U/L Lipase 504 H (23-300) U/L 02/01/22 02/01/22 02/01/22 Range/Units 13:25 15:37 16:28 RBC 2.94 L (4.30-5.90) m/uL Hgb 10.4 L (13.0-17.5) gm/dL Hct 30.5 L (39.0-53.0) % MCV 103.9 H (80.0-100.0) fL MCH 35.4 H (25.0-35.0) pg RDW 16.8 H (11.5-15.5) % Lymphocytes # (Manual) (1.0-4.8) k/uL Macrocytosis Retic Count 4.7 H (0.5-2.0) % APTT (22.0-30.0) sec D-Dimer 2.12 H (<0.60) mg/L FEU Sodium (137-145) mmol/L Carbon Dioxide (22-30) mmol/L BUN (9-20) mg/dL Creatinine (0.66-1.25) mg/dL Glucose (74-99) mg/dL POC Glucose (mg/dL) (70-110) mg/dL Total Bilirubin (0.2-1.3) mg/dL ALT (4-49) U/L Troponin I (0.000-0.034) ng/mL Total Protein (6.3-8.2) g/dL Albumin (3.5-5.0) g/dL Amylase (30-110) U/L Lipase (23-300) U/L 02/01/22 02/01/22 02/01/22 Range/Units 19:28 21:26 21:26 RBC 2.92 L (4.30-5.90) m/uL Hgb 9.9 L (13.0-17.5) gm/dL Hct 30.3 L (39.0-53.0) % MCV 103.9 H (80.0-100.0) fL MCH (25.0-35.0) pg RDW 16.8 H (11.5-15.5) % Lymphocytes # (Manual) 0.84 L (1.0-4.8) k/uL Macrocytosis Retic Count (0.5-2.0) % APTT 92.8 H (22.0-30.0) sec D-Dimer (<0.60) mg/L FEU Sodium (137-145) mmol/L Carbon Dioxide (22-30) mmol/L BUN (9-20) mg/dL Creatinine (0.66-1.25) mg/dL Glucose (74-99) mg/dL POC Glucose (mg/dL) 244 H (70-110) mg/dL Total Bilirubin (0.2-1.3) mg/dL ALT (4-49) U/L Troponin I (0.000-0.034) ng/mL Total Protein (6.3-8.2) g/dL Albumin (3.5-5.0) g/dL Amylase (30-110) U/L Lipase (23-300) U/L 02/02/22 02/02/22 02/02/22 Range/Units 05:51 06:56 07:26 RBC (4.30-5.90) m/uL Hgb (13.0-17.5) gm/dL Hct (39.0-53.0) % MCV (80.0-100.0) fL MCH (25.0-35.0) pg RDW (11.5-15.5) % Lymphocytes # (Manual) (1.0-4.8) k/uL Macrocytosis Retic Count (0.5-2.0) % APTT (22.0-30.0) sec D-Dimer (<0.60) mg/L FEU Sodium 133 L (137-145) mmol/L Carbon Dioxide 21 L (22-30) mmol/L BUN 21 H (9-20) mg/dL Creatinine 1.39 H (0.66-1.25) mg/dL Glucose 111 H (74-99) mg/dL POC Glucose (mg/dL) 118 H 111 H (70-110) mg/dL Total Bilirubin (0.2-1.3) mg/dL ALT (4-49) U/L Troponin I (0.000-0.034) ng/mL Total Protein (6.3-8.2) g/dL Albumin (3.5-5.0) g/dL Amylase (30-110) U/L Lipase (23-300) U/L 02/02/22 02/02/22 Range/Units 07:26 07:26 RBC 2.88 L (4.30-5.90) m/uL Hgb 10.0 L (13.0-17.5) gm/dL Hct 30.7 L (39.0-53.0) % MCV 106.4 H (80.0-100.0) fL MCH (25.0-35.0) pg RDW 17.1 H (11.5-15.5) % Lymphocytes # (Manual) 0.82 L (1.0-4.8) k/uL Macrocytosis Marked A Retic Count (0.5-2.0) % APTT 66.5 H (22.0-30.0) sec D-Dimer (<0.60) mg/L FEU Sodium (137-145) mmol/L Carbon Dioxide (22-30) mmol/L BUN (9-20) mg/dL Creatinine (0.66-1.25) mg/dL Glucose (74-99) mg/dL POC Glucose (mg/dL) (70-110) mg/dL Total Bilirubin (0.2-1.3) mg/dL ALT (4-49) U/L Troponin I (0.000-0.034) ng/mL Total Protein (6.3-8.2) g/dL Albumin (3.5-5.0) g/dL Amylase (30-110) U/L Lipase (23-300) U/L Assessment and Plan Plan: Assessment and plan: 76-year-old male with hypertension, rheumatoid arthritis, diabetes, hyperlipidemia presented to the hospital with abdominal pain and shortness of breath. #1 unprovoked pulmonary embolism. Evident on CT of the chest. Ordered venous Doppler of the lower extremity as the patient is reporting leg cramping to rule out DVT of the lower extremity. Continued anticoagulation with heparin. Consider oral anticoagulation pending echocardiogram. Also discussed risk and benefits of anticoagulation to patient. Patient is aware and agreeable understanding the risk factors from being on anticoagulant including serious bleeding and . Pending echocardiogram. Continue telemetry. Neuropathy continue neurontin 2 diabetes with unknown complications continue sliding scale hypertension controlled continue clonidine, atenolol continue lisinopril hyperlipidemia, side continue atorvastatin history of rheumatoid arthritis continue methotrexate Disposition: Pending echocardiogram with selection of oral anticoagulation.
[2022-02-02] MEDS ORDERED: Potassium Replacement Protocol 1 EACH MISC MISCELLANE PRN (11:15)
--- NOTE | 2022-02-02 11:50 | P.CNPUL ---
History of Present Illness Consult date: 02/02/22 Requesting physician: Mor Grimaldo Reason for consult: dyspnea, hypoxemia, pulmonary embolism, abnormal CXR/CT Chief complaint: Shortness of breath. History of present illness: Pulmonary consult dated 02/02/2022. 76-year-old male who follows with Dr. Pike, seen in the emergency department, on February 01. He came in with shortness of breath that began earlier this past week. He denied any chest pain. He apparently had nausea, but dry heaves. He also complained of epigastric and right upper quadrant abdominal pain. There is no fever or chills. Again no chest pain or chest discomfort. He was evaluated in the emergency department and was found to have pulmonary embolism. For this reason, he is admitted. He does not apparently has any clear-cut triggers or risk factors for pulmonary embolism. There is no active cancer. The patient is a bit sedentary, but does get up and move around. His been no surgery to the lower extremities, or trauma to the lower extremities. There is no prior history of pulmonary embolism. In addition to the primary doctor, he sees a garment tag stringer, metallic this, and foot doctor as well. Also, he sees an logging specialist for his diabetes. White count 6.3, hemoglobin 10, hematocrit 7, and platelet count 223,000. PTT is 66.5. Sodium 133, potassium 3.8, chlorides 104, CO2 21, BUN 21, and creatinine 1.39. Gallbladder ultrasound was negative. Chest x-ray shows cardiomegaly, without an acute process. CT angiogram showed pulmonary emboli involving the right middle lobe, right lower lobe, left upper lobe, without right heart strain. Echocardiogram is pending. Review of Systems REVIEW OF SYSTEMS: CONSTITUTIONAL: [Negative.] NEUROLOGIC: [ Negative.] HEENT: [ Negative.] CARDIAC: [Negative.] PULMONARY: Shortness of breath. GI: [Negative.] : [Negative.] RHEUMATOLOGIC: [ Negative.] IMMUNOLOGIC: [ Negative.] ENDOCRINE: [Negative. ] DERMATOLOGIC: [Negative.] Past Medical History Past Medical History: Diabetes Mellitus, Hyperlipidemia, Hypertension, Rhe umatoid Arthritis (RA) Additional Past Medical History / Comment(s): aortic aneurysm History of Any Multi-Drug Resistant Organisms: None Reported Past Surgical History: Hernia Repair Additional Past Surgical History / Comment(s): hemorrhoidectomy, surgeries for sebaceous cysts Past Anesthesia/Blood Transfusion Reactions: Motion Sickness Past Psychological History: No Psychological Hx Reported Additional Psychological History / Comment(s): and lives with his . 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 None of the animals have been ill, no other family members have been ill. Patient's has only had a cold. 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 No International travel. Was in the [employer] without international travel. Tobacco smoker stopping in his 30s. No significant alcohol use. Smoking Status: Never smoker Past Alcohol Use History: None Reported Additional Past Alcohol Use History / Comment(s): smoked age [age] 1ppd Past Drug Use History: None Reported - Past Family History Son(s) Family Medical History: Cancer Additional Family Medical History / Comment(s): brain cancer Brother(s) Family Medical History: Cancer Additional Family Medical History / Comment(s): colon cancer Sister(s) Family Medical History: Cancer Medications and Allergies Home Medications Medication Instructions Recorded Confirmed Type Aspirin [Adult Low Dose Aspirin EC] 81 mg PO DAILY 05/19/17 02/01/22 History Atorvastatin [Lipitor] 20 mg PO DAILY 05/19/17 02/01/22 History Etanercept [Enbrel] 50 mg SQ WE 05/19/17 02/01/22 History atenoloL [Tenormin] 50 mg PO BID 05/19/17 02/01/22 History metFORMIN HCL [Glucophage] 500 mg PO BID 05/19/17 02/01/22 History Calcium Carbonate [Calcium] 600 mg PO DAILY 02/01/22 02/01/22 History Cholecalciferol [Vitamin D3 (25 25 mcg PO DAILY 02/01/22 02/01/22 History Mcg = 1000 Iu)] Empagliflozin [Jardiance] 25 mg PO DAILY 02/01/22 02/01/22 History Folic Acid 1 mg PO DAILY 02/01/22 02/01/22 History Gabapentin 600 mg PO TID 02/01/22 02/01/22 History Glimepiride [Amaryl] 2 mg PO W/BRKFST 02/01/22 02/01/22 History lisinopriL 30 mg PO DAILY 02/01/22 02/01/22 History metHOTREXate sodium [Methotrexate] 25 mg PO HEIN 02/01/22 02/01/22 History predniSONE 10 mg PO DAILY 02/01/22 02/01/22 History Allergies Allergy/AdvReac Type Severity Reaction Status Date / Time No Known Allergies Allergy Verified 02/01/22 15:49 Physical Exam Osteopathic Statement: *. No significant issues noted on an osteopathic structural exam other than those noted in the History and Physical/Consult. Vitals: Vital Signs Temp Pulse Pulse Resp BP BP Pulse Ox 02/02/22 04:00 98.0 F 80 18 114/62 96 02/02/22 01:43 85 18 02/01/22 23:49 85 18 122/74 97 02/01/22 20:00 98.4 F 120 H 20 182/96 94 L 02/01/22 19:13 98.7 F 128 H 24 185/87 96 02/01/22 18:05 118 H 20 186/95 98 02/01/22 17:55 110 H 20 179/100 98 02/01/22 16:53 110 H 20 153/79 97 02/01/22 15:30 100 16 148/72 98 02/01/22 14:30 62 16 168/72 98 02/01/22 12:48 112 H 18 161/83 96 Intake and Output 02/01/22 02/02/22 02/02/22 22:59 06:59 14:59 Intake Total 118.069 240 131.931 Output Total 300 Balance 118.069 -60 131.931 Intake: Intake, IV Titration 118.069 131.931 Amount Heparin Sod,Pork in 0.45% 118.069 131.931 NaCl 25,000 unit In 0.45 % NaCl 1 250ml.bag @ 18 UNITS/KG/HR 16.248 mls/hr IV .[id number] [facility] Rx#: [id number] Oral 240 Output: Urine 300 Other: # Bowel Movements 1 Weight 90.265 kg No acute distress, oriented 3. No respiratory distress. Room air saturation 96%. HEENT examination is grossly unremarkable. Neck supple. Full range of motion. No adenopathy thyromegaly or neck vein distention. Cardiovascular examination reveals regular rhythm rate. S1-S2 normal. No S3 or S4. No discernible murmur noted. Heart rate 80 bpm. Lungs reveal clear breath sounds. Breath sounds are equal bilaterally. No adventitious lung sounds including wheezes rhonchi or crackles. Abdomen soft bowel sounds are heard. No masses or tenderness. Extremities are intact. No cyanosis clubbing or edema. Skin is without rash or lesion. Neurologic examination is brief but nonfocal. Results - Laboratory Findings CBC and BMP: 02/02/22 07:26 02/02/22 07:26 PT/INR, D-dimer D-Dimer 2.12 mg/L FEU (<0.60) H 02/01/22 13:25 Abnormal lab findings: Abnormal Labs 02/01/22 02/01/22 02/01/22 09:53 10:15 10:15 RBC 3.31 L Hgb 11.4 L Hct 34.4 L MCV 103.9 H MCH RDW 16.6 H Lymphocytes # (Manual) 0.68 L Macrocytosis Retic Count APTT D-Dimer Sodium 133 L Carbon Dioxide 15 L BUN Creatinine Glucose 181 H POC Glucose (mg/dL) 179 H Total Bilirubin 1.9 H ALT 53 H Troponin I Total Protein 6.2 L Albumin 3.4 L Amylase 135 H Lipase 504 H 02/01/22 02/01/22 02/01/22 10:15 13:25 15:37 RBC 2.94 L Hgb 10.4 L Hct 30.5 L MCV 103.9 H MCH 35.4 H RDW 16.8 H Lymphocytes # (Manual) Macrocytosis Retic Count APTT D-Dimer 2.12 H Sodium Carbon Dioxide BUN Creatinine Glucose POC Glucose (mg/dL) Total Bilirubin ALT Troponin I 0.053 H* Total Protein Albumin Amylase Lipase 02/01/22 02/01/22 02/01/22 16:28 19:28 21:26 RBC 2.92 L Hgb 9.9 L Hct 30.3 L MCV 103.9 H MCH RDW 16.8 H Lymphocytes # (Manual) 0.84 L Macrocytosis Retic Count 4.7 H APTT D-Dimer Sodium Carbon Dioxide BUN Creatinine Glucose POC Glucose (mg/dL) 244 H Total Bilirubin ALT Troponin I Total Protein Albumin Amylase Lipase 02/01/22 02/02/22 02/02/22 21:26 05:51 06:56 RBC Hgb Hct MCV MCH RDW Lymphocytes # (Manual) Macrocytosis Retic Count APTT 92.8 H D-Dimer Sodium Carbon Dioxide BUN Creatinine Glucose POC Glucose (mg/dL) 118 H 111 H Total Bilirubin ALT Troponin I Total Protein Albumin Amylase Lipase 02/02/22 02/02/22 02/02/22 07:26 07:26 07:26 RBC 2.88 L Hgb 10.0 L Hct 30.7 L MCV 106.4 H MCH RDW 17.1 H Lymphocytes # (Manual) 0.82 L Macrocytosis Marked A Retic Count APTT 66.5 H D-Dimer Sodium 133 L Carbon Dioxide 21 L BUN 21 H Creatinine 1.39 H Glucose 111 H POC Glucose (mg/dL) Total Bilirubin ALT Troponin I Total Protein Albumin Amylase Lipase - Diagnostic Findings Chest x-ray: image reviewed CT scan - chest: image reviewed U/S of Legs: image reviewed Assessment and Plan Assessment: Bilateral pulmonary emboli, without right heart strain, echocardiogram is currently pending. History of diabetes mellitus. History of hyperlipidemia. History of essential hypertension. History of rheumatoid arthritis. Plan: Plan dated 02/02/2022. We are awaiting an echocardiogram. If cardiology decides not to do EKOS, then, the patient can be started on a factor X a inhibitor. Clinically, he is quite stable. He is on room air. Blood pressure is stable. The patient appears to have a unprovoked pulmonary embolism, and should be treated for 6 months. About 8-10 weeks from now, the patient should have a follow-up CT angiogram. Additional recommendations and suggestions are forthcoming. Prognosis is thought to be generally good. Time with Patient: Greater than 30
[2022-02-02 11:52] LABS: Glucose,Whole Blood 106 mg/dL (70-110)
[2022-02-02] MEDS ORDERED: POTASSIUM CHLORIDE ER 20 MEQ TAB.ER PO SCH (12:00)
--- NOTE | 2022-02-02 12:29 | US ---
EXAMINATION TYPE: US venous doppler duplex LE DATE OF EXAM: 02/02/2022 11:39 AM COMPARISON: NONE CLINICAL HISTORY: Pulmonary Embolism. Pulmonary embolism SIDE PERFORMED: Bilateral TECHNIQUE: The lower extremity deep venous system is examined utilizing real time linear array sonog tomasa with graded compression, doppler sonography and color-flow sonography. VESSELS IMAGED: Common Femoral Vein Deep Femoral Vein Greater Saphenous Vein * Femoral Vein Popliteal Vein Small Saphenous Vein * Proximal Calf Veins (* superficial vessels) Right Leg: no evidence of DVT Left Leg: no evidence of DVT. Rouleaux flow popliteal vein Grayscale, color doppler, spectral doppler imaging performed of the deep veins of the lower extremiti es. There is normal flow, compressibility, vascular waveforms. IMPRESSION: No evidence of deep vein thrombosis of either lower extremity.
[2022-02-02] MEDS: ACETAMINOPHEN TAB 325 MG TAB PO PRN ×2 (12:52→20:06)
[2022-02-02 14:15] LABS: Anisocytosis Slight; HGB 9.2 gm/dL (13.0-17.5); Hypochromasia Slight; MCH 36.2 pg (25.0-35.0); MCV 106.4 fL (80.0-100.0); Macrocytosis Marked; Mean Platelet Volume 8.2; Platelet Count 227 k/uL (150-450); Poikilocytosis Moderate; RBC 2.54 m/uL (4.30-5.90); RDW 17.8 % (11.5-15.5); WBC 6.6 k/uL (3.8-10.6)
[2022-02-02 15:06] LABS: Eosinophils # (M) 0.13 k/uL (0-0.7); Lymphocytes # (M) 0.79 k/uL (1.0-4.8); Monocytes # (M) 0.59 k/uL (0-1.0); Neutrophils # (M) 5.08 k/uL (1.3-7.7); Neutrophils % (M) 77 %; Nucleated Red Blood Cells 0 /100 WBC (0-0); Polychromasia Present; Total Cells Counted 100
[2022-02-02] MEDS: PANTOPRAZOLE 40 MG/10 ML VIAL IVP SCH ×2 (16:23→20:07)
[2022-02-02 16:46] LABS: Glucose,Whole Blood 130 mg/dL (70-110)
[2022-02-02 20:09] LABS: Glucose,Whole Blood 105 mg/dL (70-110)
[2022-02-02 20:57] LABS: Anisocytosis Slight; HCT 32.2 % (39.0-53.0); HGB 10.6 gm/dL (13.0-17.5); Hypochromasia Moderate; MCH 35.5 pg (25.0-35.0); MCV 107.6 fL (80.0-100.0); Macrocytosis Marked; Mean Platelet Volume 8.2; Platelet Count 296 k/uL (150-450); Poikilocytosis Moderate; RBC 2.99 m/uL (4.30-5.90); RDW 17.7 % (11.5-15.5); WBC 8.4 k/uL (3.8-10.6)
[2022-02-02 21:59] LABS: Band Neutrophils % 10 %; Eosinophils # (M) 0.42 k/uL (0-0.7); Lymphocytes # (M) 1.68 k/uL (1.0-4.8); Monocytes # (M) 0.84 k/uL (0-1.0); Neutrophils % (M) 55 %; Nucleated Red Blood Cells 0 /100 WBC (0-0); Total Cells Counted 100
[2022-02-03] MEDS: HEPARIN SOD,PORK IN 0.45% NACL 25,000 UNIT in 0.45% NACL 1 250ML.BAG IV SCH (02:46)
[2022-02-03 05:56] LABS: Glucose,Whole Blood 124 mg/dL (70-110)
[2022-02-03] MEDS: INSULIN ASPART (NovoLOG) 100 UNIT/ML VIAL SQ SCH ×3 (06:19→19:05)
--- NOTE | 2022-02-03 06:38 | P.PN ---
Subjective Progress Note Date: 02/03/22 Principal diagnosis: Pulmonary embolism The patient is a very pleasant 76-year-old gentleman with a past medical history significant for rheumatoid arthritis who presented to the hospital with epigastric discomfort as well as shortness of breath. He underwent a d-dimer came in to be abnormal and subsequently he underwent a computed tomography scan which showed pulmonary embolism. The patient then started on heparin IV. He was seen this morning. Overall he is feeling better. He feels weak. No symptoms of chest pain or epigastric discomfort and no symptoms of shortness of breath at this point. The computed tomography scan did not show any evidence off cardiac strain. Hemodynamically the patient is a stable. He is not hypoxic as well. The troponin came in to be slightly elevated but and the proBNP came to be within normal limits. Overall his diagnosis seems to be consistent with non-massive a PE. At this point I'm going to DC the heparin and start the vimal ent on Eliquis 10 mg by mouth twice a day for a week and then he will be switched into 5 mg by mouth twice a day. Follow-up on the echocardiogram Objective - Vital Signs Vital signs: Vital Signs Temp 98.9 F 02/03/22 04:00 Pulse 88 02/03/22 04:00 Resp 18 02/03/22 04:00 BP 118/66 02/03/22 04:00 Pulse Ox 96 02/03/22 04:00 FiO2 Intake & Output 02/02/22 02/02/22 02/03/22 06:59 18:59 06:59 Intake Total 358.069 249.931 717 Output Total 300 300 Balance 58.069 249.931 417 Intake: Intake, IV Titration 118.069 131.931 Amount Heparin Sod,Pork in 0.45% 118.069 131.931 NaCl 25,000 unit In 0.45 % NaCl 1 250ml.bag @ 18 UNITS/KG/HR 16.248 mls/hr IV .[id number] [facility] Rx#: [id number] Oral 240 118 717 Output: Urine 300 300 Other: Voiding Method Urinal Urinal # Voids 2 - Constitutional General appearance: Present: no acute distress - Respiratory Respiratory: bilateral: CTA - Cardiovascular Rhythm: regular Heart sounds: normal: S1, S2 - Labs CBC & Chem 7: 02/02/22 20:17 02/02/22 07:26 Labs: Abnormal Lab Results - Last 24 Hours (Table) 02/02/22 02/02/22 02/02/22 Range/Units 06:56 07:26 07:26 RBC 2.88 L (4.30-5.90) m/uL Hgb 10.0 L (13.0-17.5) gm/dL Hct 30.7 L (39.0-53.0) % MCV 106.4 H (80.0-100.0) fL MCH (25.0-35.0) pg RDW 17.1 H (11.5-15.5) % Lymphocytes # (Manual) 0.82 L (1.0-4.8) k/uL Macrocytosis Marked A APTT (22.0-30.0) sec Sodium 133 L (137-145) mmol/L Carbon Dioxide 21 L (22-30) mmol/L BUN 21 H (9-20) mg/dL Creatinine 1.39 H (0.66-1.25) mg/dL Glucose 111 H (74-99) mg/dL POC Glucose (mg/dL) 111 H (70-110) mg/dL 02/02/22 02/02/22 02/02/22 Range/Units 07:26 13:44 16:42 RBC 2.54 L (4.30-5.90) m/uL Hgb 9.2 L (13.0-17.5) gm/dL Hct 27.0 L (39.0-53.0) % MCV 106.4 H (80.0-100.0) fL MCH 36.2 H (25.0-35.0) pg RDW 17.8 H (11.5-15.5) % Lymphocytes # (Manual) 0.79 L (1.0-4.8) k/uL Macrocytosis Marked A APTT 66.5 H (22.0-30.0) sec Sodium (137-145) mmol/L Carbon Dioxide (22-30) mmol/L BUN (9-20) mg/dL Creatinine (0.66-1.25) mg/dL Glucose (74-99) mg/dL POC Glucose (mg/dL) 130 H (70-110) mg/dL 02/02/22 02/02/22 02/03/22 Range/Units 20:17 20:17 02:45 RBC 2.99 L (4.30-5.90) m/uL Hgb 10.6 L (13.0-17.5) gm/dL Hct 32.2 L (39.0-53.0) % MCV 107.6 H (80.0-100.0) fL MCH 35.5 H (25.0-35.0) pg RDW 17.7 H (11.5-15.5) % Lymphocytes # (Manual) (1.0-4.8) k/uL Macrocytosis Marked A APTT 31.0 H 47.1 H (22.0-30.0) sec Sodium (137-145) mmol/L Carbon Dioxide (22-30) mmol/L BUN (9-20) mg/dL Creatinine (0.66-1.25) mg/dL Glucose (74-99) mg/dL POC Glucose (mg/dL) (70-110) mg/dL 02/03/22 Range/Units 05:54 RBC (4.30-5.90) m/uL Hgb (13.0-17.5) gm/dL Hct (39.0-53.0) % MCV (80.0-100.0) fL MCH (25.0-35.0) pg RDW (11.5-15.5) % Lymphocytes # (Manual) (1.0-4.8) k/uL Macrocytosis APTT (22.0-30.0) sec Sodium (137-145) mmol/L Carbon Dioxide (22-30) mmol/L BUN (9-20) mg/dL Creatinine (0.66-1.25) mg/dL Glucose (74-99) mg/dL POC Glucose (mg/dL) 124 H (70-110) mg/dL Assessment and Plan Assessment: Assessment #1 pulmonary embolism, non-massive #2 sinus tachycardia secondary to pulmonary embolism which has improved #3 mildly elevated troponin #4 hypertension #5 rheumatoid arthritis Plan #1 DC heparin and start the patient on oral anticoagulation #2 follow-up on the echocardiogram #3 possible discharge in the next 24 hours
[2022-02-03] MEDS: ATORVASTATIN 20 MG TAB PO SCH (08:58)
[2022-02-03] MEDS: CHOLECALCIFEROL 25 MCG (1000 IU) TABLET PO SCH (08:58)
[2022-02-03] MEDS: ASPIRIN 81 MG PO SCH (08:58)
[2022-02-03] MEDS: FOLIC ACID 1 MG TAB PO SCH (08:58)
[2022-02-03] MEDS: atenoloL 50 MG TAB PO SCH ×2 (08:58→20:35)
[2022-02-03] MEDS: CALCIUM CARBONATE 500 MG CHEWABLE PO SCH (08:58)
[2022-02-03] MEDS: APIXABAN 5 MG TAB PO SCH ×2 (08:59→20:35)
[2022-02-03] MEDS: lisinopriL 10 MG TAB PO SCH (08:59)
[2022-02-03] MEDS: GABAPENTIN 300 MG CAP PO SCH ×3 (08:59→20:35)
[2022-02-03] MEDS: PANTOPRAZOLE 40 MG/10 ML VIAL IVP SCH (09:00)
[2022-02-03] MEDS: ACETAMINOPHEN TAB 325 MG TAB PO PRN (09:09)
--- NOTE | 2022-02-03 10:18 | P.PN ---
Subjective Progress Note Date: 02/03/22 Principal diagnosis: Shortness of breath. Pulmonary consult dated 02/02/2022. 76-year-old male who follows with Dr. Pike, seen in the emergency department, on February 01. He came in with shortness of breath that began earlier this past week. He denied any chest pain. He apparently had nausea, but dry heaves. He also complained of epigastric and right upper quadrant abdominal pain. There is no fever or chills. Again no chest pain or chest discomfort. He was evaluated in the emergency department and was found to have pulmonary embolism. For this reason, he is admitted. He does not apparently has any clear-cut triggers or risk factors for pulmonary embolism. There is no active cancer. The patient is a bit sedentary, but does get up and move around. His been no surgery to the lower extremities, or trauma to the lower extremities. There is no prior history of pulmonary embolism. In addition to the primary doctor, he sees a actuarial manager, metallic this, and foot doctor as well. Also, he sees an stile ripsaw operator for his diabetes. White count 6.3, hemoglobin 10, hematocrit 7, and platelet count 223,000. PTT is 66.5. Sodium 133, potassium 3.8, chlorides 104, CO2 21, BUN 21, and creatinine 1.39. Gallbladder ultrasound was negative. Chest x-ray shows cardiomegaly, without an acute process. CT angiogram showed pulmonary emboli involving the right middle lobe, right lower lobe, left upper lobe, without right heart strain. Echocardiogram is pending. Progress note dated 02/03/2022. This is a patient who we saw yesterday in consultation for shortness of breath. The patient was found to have a pulmonary embolism. The patient was on IV heparin, and is currently on Eliquis. In addition, the patient's on O2 at 3 L. He appears to be stable. His shortness of breath is improved. No blood work today. Dopplers of the lower extremities were negative for DVT. Objective - Vital Signs Vital signs: Vital Signs Temp 98.9 F 02/03/22 04:00 Pulse 88 02/03/22 04:00 Resp 18 02/03/22 04:00 BP 118/66 02/03/22 04:00 Pulse Ox 96 02/03/22 04:00 FiO2 Intake & Output 02/02/22 02/03/22 02/03/22 18:59 06:59 18:59 Intake Total 249.931 717 Output Total 300 Balance 249.931 417 Intake: Intake, IV Titration 131.931 Amount Heparin Sod,Pork in 0.45% 131.931 NaCl 25,000 unit In 0.45 % NaCl 1 250ml.bag @ 18 UNITS/KG/HR 16.248 mls/hr IV .[id number] [facility] Rx#: [id number] Oral 118 717 Output: Urine 300 Other: Voiding Method Urinal Urinal # Voids 2 - Exam No acute distress, oriented 3. No respiratory distress. Currently on 3 L. Saturations are 96%. HEENT examination is grossly unremarkable. Neck supple. Full range of motion. No adenopathy thyromegaly or neck vein distention. Cardiovascular examination reveals regular rhythm rate. S1-S2 normal. No S3 or S4. No discernible murmur noted. Heart rate 88 bpm. Lungs reveal clear breath sounds. Breath sounds are equal bilaterally. No adventitious lung sounds including wheezes rhonchi or crackles. Abdomen soft bowel sounds are heard. No masses or tenderness. Extremities are intact. No cyanosis clubbing or edema. Skin is without rash or lesion. Neurologic examination is brief but nonfocal. - Labs CBC & Chem 7: 02/02/22 20:17 02/02/22 07:26 Labs: Abnormal Lab Results - Last 24 Hours (Table) 02/02/22 02/02/22 02/02/22 Range/Units 13:44 16:42 20:17 RBC 2.54 L 2.99 L (4.30-5.90) m/uL Hgb 9.2 L 10.6 L (13.0-17.5) gm/dL Hct 27.0 L 32.2 L (39.0-53.0) % MCV 106.4 H 107.6 H (80.0-100.0) fL MCH 36.2 H 35.5 H (25.0-35.0) pg RDW 17.8 H 17.7 H (11.5-15.5) % Lymphocytes # (Manual) 0.79 L (1.0-4.8) k/uL Macrocytosis Marked A Marked A APTT (22.0-30.0) sec POC Glucose (mg/dL) 130 H (70-110) mg/dL 02/02/22 02/03/22 02/03/22 Range/Units 20:17 02:45 05:54 RBC (4.30-5.90) m/uL Hgb (13.0-17.5) gm/dL Hct (39.0-53.0) % MCV (80.0-100.0) fL MCH (25.0-35.0) pg RDW (11.5-15.5) % Lymphocytes # (Manual) (1.0-4.8) k/uL Macrocytosis APTT 31.0 H 47.1 H (22.0-30.0) sec POC Glucose (mg/dL) 124 H (70-110) mg/dL Assessment and Plan Assessment: Unprovoked, bilateral pulmonary emboli, without right heart strain. History of diabetes mellitus. History of hyperlipidemia. History of essential hypertension. History of rheumatoid arthritis. Plan: Plan dated 02/02/2022. We are awaiting an echocardiogram. If cardiology decides not to do EKOS, then, the patient can be started on a factor X a inhibitor. Clinically, he is quite stable. He is on room air. Blood pressure is stable. The patient appears to have a unprovoked pulmonary embolism, and should be treated for 6 months. About 8-10 weeks from now, the patient should have a follow-up CT angiogram. Additional recommendations and suggestions are forthcoming. Prognosis is thought to be generally good. Plan dated 02/03/2022. The patient is doing well. He is currently on a factor X a inhibitor. IV heparin has been discontinued. He continues on 3 L. In my opinion, this patient has had a unprovoked pulmonary embolism, and should be treated for 6 months. He will follow-up with me in the office. A follow-up CT angiogram be done in 8-10 weeks. No additional recommendations are made at this time. Time with Patient: Less than 30
--- NOTE | 2022-02-03 11:02 | CA ---
Transthoracic Echo Report Name: Guero Fernandez Age: 76 Gender: M : 1945 Exam Date: 02/02/2022 08:04 Exam Location: [facility] Ht (in): 68 Wt (lb): 199 Ordering Physician: Juan Patel MD ([id number]) Attending/Referring Phys: Drying Tumbler Operator Tesha Meyers, PB Procedure CPT: Indications: PE Cardiac Hx: Technical Quality: Good Contrast 1: Total Dose (mL): Contrast 2: Total Dose (mL): MEASUREMENTS (Male / Female) Normal Values 2D ECHO LV Diastolic Diameter PLAX 5.4 cm 4.2 - 5.9 / 3.9 - 5.3 cm LV Systolic Diameter PLAX 3.8 cm IVS Diastolic Thickness 1.2 cm 0.6 - 1.0 / 0.6 - 0.9 cm LVPW Diastolic Thickness 1.4 cm 0.6 - 1.0 / 0.6 - 0.9 cm LV Relative Wall Thickness 0.5 RV Internal Dim ED PLAX 3.3 cm M-MODE Aortic Root Diameter MM 3.3 cm MV E Point Septal Separation 0.7 cm AV Cusp Separation MM 1.9 cm DOPPLER MV Area PHT 3.9 cm??? Mitral E Point Velocity 82.6 cm/s Mitral A Point Velocity 102.1 cm/s Mitral E to A Ratio 0.8 MV Deceleration Time 194.8 ms MV E' Velocity 5.1 cm/s Mitral E to MV E' Ratio 16.3 TR Peak Velocity 238.5 cm/s TR Peak Gradient 22.8 mmHg Right Ventricular Systolic Press 27.4 mmHg FINDINGS Left Ventricle Normal left ventricular size, wall thickness, systolic function with no obvious regional wall motion abnormalities. Left ventricular ejection fraction is estimated at 50-55%. Right Ventricle The right ventricle is normal in size and function. Right ventricular systolic pressure within normal limits. Right Atrium The right atrium is normal in size. Left Atrium The left atrium is normal in size. Mitral Valve Structurally normal mitral valve without significant stenosis or prolapse. There is mild mitral regurgitation. Aortic Valve Structurally normal aortic valve without significant sclerosis or stenosis. There is no aortic regurgitation. Tricuspid Valve Structurally normal tricuspid valve without significant stenosis. Pulmonary artery systolic pressure is normal. Pulmonic Valve Structurally normal pulmonic valve without significant stenosis. There is no pulmonic regurgitation. Pericardium Normal pericardium without effusion. Aorta Normal aortic root dimension. CONCLUSIONS Normal left ventricular dimension and systolic function The right ventricle is within normal limits for dimension Normal pulmonary artery systolic pressure Previewed by: Dr. Juan Patel MD (Electronically Signed) Final Date: 03 February 2022 11:01
--- NOTE | 2022-02-03 11:10 | XR ---
EXAMINATION TYPE: XR chest 1V portable DATE OF EXAM: 02/03/2022 10:52 AM COMPARISON: Chest radiographs from 02/01/2022 TECHNIQUE: XR chest 1V portable Portable AP radiograph of the chest. CLINICAL INDICATION:Male, 76 years old with history of PNEUMONIA; FINDINGS: Lungs/Pleura: Multifocal airspace opacities which have worsened from 02/01/2022 particularly in the low er lobes. No evidence of pneumothorax or pleural effusion. Pulmonary vascularity: Unremarkable. Heart/mediastinum: Cardiomediastinal silhouette is unremarkable. Musculoskeletal: No acute osseous pathology. IMPRESSION: Increasing Multifocal airspace opacities concerning for pneumonia.
[2022-02-03 11:28] LABS: Glucose,Whole Blood 215 mg/dL (70-110)
[2022-02-03] MEDS ORDERED: VANCOMYCIN 1,750 MG in SODIUM CHLORIDE 0.9% 500 ML 500 ML IVPB ONE (12:00)
[2022-02-03 13:23] LABS: Iron 34 ug/dL (65-175)
--- NOTE | 2022-02-03 14:07 | CT ---
EXAMINATION TYPE: CT brain wo con CT DLP: 1099.6 mGycm, Automated exposure control for dose reduction was used. DATE OF EXAM: 02/03/2022 1:25 PM COMPARISON: None. CLINICAL INDICATION:Male, 76 years old with history of possible stroke, Possible stroke TECHNIQUE: Brain: Axial CT images of the brain were obtained with coronal and sagittal reformats created and rev iewed. Contrast used: None. Oral contrast used: None. FINDINGS: Brain: Extra-axial spaces: No abnormal extra-axial fluid collections. Ventricular system: Within normal limits Cerebral parenchyma: No acute intraparenchymal hemorrhage or mass effect. The kinsey-white junction is well differentiated. Cerebellum: Unremarkable. Mass effect: No evidence of midline shift. Intracranial vasculature: Atherosclerotic calcifications of the intracranial vessels. Soft tissues: Normal. Calvarium/osseous structures: No depressed skull fracture. Paranasal sinuses and mastoid air cells: Mild scattered paranasal sinus disease. Visualized orbits: Orbital contents are intact. IMPRESSION: 1. No acute intracranial process. 2. Nonspecific white matter changes, likely secondary to chronic small vessel ischemic disease.
[2022-02-03] MEDS ORDERED: VANCOMYCIN IV PER PHARMACY 1 EACH MISC MISCELLANE SCH (14:15)
--- NOTE | 2022-02-03 14:22 | P.PN ---
Subjective Progress Note Date: 02/03/22 Principal diagnosis: confusion Pt is confused today urinary incontinence Fevers Shortness of breath Still on O2 Objective - Vital Signs Vital signs: Vital Signs Temp 98.9 F 02/03/22 04:00 Pulse 88 02/03/22 04:00 Resp 18 02/03/22 04:00 BP 118/66 02/03/22 04:00 Pulse Ox 96 02/03/22 04:00 FiO2 Intake & Output 02/02/22 02/03/22 02/03/22 18:59 06:59 18:59 Intake Total 249.931 717 Output Total 300 Balance 249.931 417 Intake: Intake, IV Titration 131.931 Amount Heparin Sod,Pork in 0.45% 131.931 NaCl 25,000 unit In 0.45 % NaCl 1 250ml.bag @ 18 UNITS/KG/HR 16.248 mls/hr IV .[id number] [facility] Rx#: [id number] Oral 118 717 Output: Urine 300 Other: Voiding Method Urinal Urinal # Voids 2 - Exam Gen:Awake and confused . NAD Lungs: diminshed Ht; SR Ext: No edema Abd: soft neuro: confused. Speech is slurred. No focal deficit - Labs CBC & Chem 7: 02/02/22 20:17 02/02/22 07:26 Labs: Abnormal Lab Results - Last 24 Hours (Table) 02/02/22 02/02/22 02/02/22 Range/Units 07:26 13:44 16:42 RBC 2.54 L (4.30-5.90) m/uL Hgb 9.2 L (13.0-17.5) gm/dL Hct 27.0 L (39.0-53.0) % MCV 106.4 H (80.0-100.0) fL MCH 36.2 H (25.0-35.0) pg RDW 17.8 H (11.5-15.5) % Lymphocytes # (Manual) 0.79 L (1.0-4.8) k/uL Macrocytosis Marked A APTT (22.0-30.0) sec POC Glucose (mg/dL) 130 H (70-110) mg/dL Iron 34 L (65-175) ug/dL Transferrin 129.0 L (204.0-354.0) mg/dL Ferritin 1364.0 H (22.0-322.0) ng/mL Vitamin B12 1117.0 H (200.0-944.0) pg/mL 02/02/22 02/02/22 02/03/22 Range/Units 20:17 20:17 02:45 RBC 2.99 L (4.30-5.90) m/uL Hgb 10.6 L (13.0-17.5) gm/dL Hct 32.2 L (39.0-53.0) % MCV 107.6 H (80.0-100.0) fL MCH 35.5 H (25.0-35.0) pg RDW 17.7 H (11.5-15.5) % Lymphocytes # (Manual) (1.0-4.8) k/uL Macrocytosis Marked A APTT 31.0 H 47.1 H (22.0-30.0) sec POC Glucose (mg/dL) (70-110) mg/dL Iron (65-175) ug/dL Transferrin (204.0-354.0) mg/dL Ferritin (22.0-322.0) ng/mL Vitamin B12 (200.0-944.0) pg/mL 02/03/22 02/03/22 Range/Units 05:54 11:27 RBC (4.30-5.90) m/uL Hgb (13.0-17.5) gm/dL Hct (39.0-53.0) % MCV (80.0-100.0) fL MCH (25.0-35.0) pg RDW (11.5-15.5) % Lymphocytes # (Manual) (1.0-4.8) k/uL Macrocytosis APTT (22.0-30.0) sec POC Glucose (mg/dL) 124 H 215 H (70-110) mg/dL Iron (65-175) ug/dL Transferrin (204.0-354.0) mg/dL Ferritin (22.0-322.0) ng/mL Vitamin B12 (200.0-944.0) pg/mL Assessment and Plan Plan: 76 yr old male came in with SOB Unprovoled PE Unknonw etiology Started on Heparin drip then stopped today by cardiology. Started on AC with Eliquis 10 bid for 7 days then 5 mg bid to complete 6 months of tx FU CT angio as OP in 2-3 weeks with pulm Pending echo no signs of fluid over load Acute Hypoxia 2/2 to PE as above No documented hx of hypoxia Cont O2 to keep Os sat >92% Acute encephalopaty CT head w.o contrast pending Cxr showed PNA Started on IV Abx with Vanco and Zosyn Stat Blood cultures pending UA pending Probable bacterial PNA due to unknonw organism Fever started on vanco pharm to dose and Zosyn> LOT is 5-7 days if PNA confirmed. Will Order Procal Cont to monitor PRN Tylenol urinary incontinence Cont to monitor UA pending Type 2 DM Cont sliding scale Neuropathy Cont gabapentin HLD Const statin RA methotrexate Dispo: pending medical stability not ready for discharge discussed with fam by bedside Time with Patient: Greater than 30
[2022-02-03] MEDS ORDERED: VANCOMYCIN 1,750 MG in SODIUM CHLORIDE 0.9% 500 ML 500 ML IVPB SCH (15:00)
[2022-02-03] MEDS ORDERED: metHOTREXate sodium 2.5 MG TAB PO SCH (15:58)
[2022-02-03] MEDS: PANTOPRAZOLE 40 MG TABLET PO SCH (16:15)
[2022-02-03] MEDS: PIPERACILLIN-TAZOBACTAM 3.375 GM in SODIUM CHLORIDE 0.9% 100 ML IVPB SCH ×2 (16:16→23:14)
[2022-02-03 16:49] LABS: Glucose,Whole Blood 138 mg/dL (70-110)
--- NOTE | 2022-02-03 17:04 | P.PN ---
Progress Note - Text Progress Note Date: 02/03/22 Hospital course 76-year-old man with medical history of hypertension, hyperlipidemia, diabetes, rheumatoid arthritis on chronic steroids presented for abdominal, chest pain. Patient says that for the last 1 week he's noticed that he has had difficulty eating, in which she had nausea and vomiting directly after trying to take in anything my mouth. Consequently, he has not taken any of his medications this week. Furthermore, he noticed that his stools have become soft and black and are associated with a burning type pain in his stomach. He also reports to me that he's had associated difficulty breathing with ambulation. He denies fevers, chills, palpitations, syncope, presyncope, constipation, dysuria, dyschezia, numbness/weakness of extremities. In the emergency room, patient is afebrile, 168/72, heart rate 110, 96% on room air. CBC shows mild anemia down to 11.4, MCV of 103.9. Chemistries show a low sodium at 133, CO2 of 15. Liver function tests show total bilirubin of 1.9, ALT of 53, total protein of 6.2, albumin of 3.4. Amylase was 135. Lipase was 504. D-dimer was elevated at 2.12. Covid was negative. Patient underwent gallbladder ultrasound which showed no evidence for an acute abdominal process. Chest x-ray demonstrated cardiomegaly but no acute pulmonary process. Chest CTA was significant for pulmonary emboli involving the right middle, right lower, left upper lobes, with no evidence of right heart strain as well as peripheral ground last opacities that could represent early pulmonary infarct. EKG showed tachycardia with an ectopic atrial pacemaker, right bundle brandie block, left anterior fascicular block, LVH. Admitted with unprovoked pulmonary embolism. Started IV heparin. February 03: I assumed care of the patient from [facility] today. Patient spiking fevers. Chills. Congested chest. Family at the bedside. Started on IV Zosyn. X-ray showing infiltrates. Started on eliquis. Decreased appetite. Tired. Was slightly delirious/confused earlier. Did sit up in a chair earlier. Active Medications Acetaminophen (Acetaminophen Tab 325 Mg Tab) 650 mg PO Q6HR PRN PRN Reason: Fever and/ or Pain Last Admin: 02/03/22 09:09 Dose: 650 mg Apixaban (Apixaban 5 Mg Tab) 10 mg PO BID [facility]; Protocol Stop: 02/10/22 09:01 Last Admin: 02/03/22 08:59 Dose: 10 mg Aspirin (Aspirin 81 Mg) 81 mg PO DAILY [facility] Last Admin: 02/03/22 08:58 Dose: 81 mg Atenolol (Atenolol 50 Mg Tab) 50 mg PO BID [facility] Last Admin: 02/03/22 08:58 Dose: 50 mg Atorvastatin Calcium (Atorvastatin 20 Mg Tab) 20 mg PO DAILY [facility] Last Admin: 02/03/22 08:58 Dose: 20 mg Calcium Carbonate/Glycine (Calcium Carbonate 500 Mg Chewable) 500 mg PO DAILY [facility] Last Admin: 02/03/22 08:58 Dose: 500 mg Cholecalciferol (Cholecalciferol 25 Mcg (1000 Iu) Tablet) 25 mcg PO DAILY [facility] Last Admin: 02/03/22 08:58 Dose: 25 mcg Clonidine (Clonidine Hcl 0.2 Mg Tab) 0.2 mg PO TID PRN PRN Reason: Blood Pressure - High Last Admin: 02/01/22 20:09 Dose: 0.2 mg Folic Acid (Folic Acid 1 Mg Tab) 1 mg PO DAILY [facility] Last Admin: 02/03/22 08:58 Dose: 1 mg Gabapentin (Gabapentin 300 Mg Cap) 600 mg PO TID [facility] Last Admin: 02/03/22 16:16 Dose: 600 mg Piperacillin Sod/Tazobactam (Sod 3.375 gm/ Sodium Chloride) 100 mls @ 25 mls/hr IVPB Q8HR [facility]; Protocol Last Admin: 02/03/22 16:16 Dose: 25 mls/hr Vancomycin HCl 1,750 mg/ (Sodium Chloride) 500 mls @ 167 mls/hr IVPB DAILY@1100 [facility] Last Admin: 02/03/22 16:15 Dose: 167 mls/hr Insulin Aspart (Insulin Aspart (Novolog) 100 Unit/Ml Vial) 0 unit SQ AC-TID [facility]; Protocol Last Admin: 02/03/22 12:31 Dose: 3 unit Lisinopril (Lisinopril 10 Mg Tab) 30 mg PO DAILY [facility] Last Admin: 02/03/22 08:59 Dose: 30 mg Methotrexate (Methotrexate Sodium 2.5 Mg Tab) 25 mg PO HEIN [facility] Last Admin: 02/03/22 16:15 Dose: 25 mg Miscellaneous Information (Potassium Replacement Protocol 1 Each Misc) 1 each MISCELLANE DAILY PRN; Protocol PRN Reason: Per Protocol Pantoprazole Sodium (Pantoprazole 40 Mg Tablet) 40 mg PO AC-BID DAVID Last Admin: 02/03/22 16:15 Dose: 40 mg On examination: VITAL SIGNS: [103.4, 90, 18, 120/58, 97% on 3 L] GENERAL APPEARANCE: Laying in bed, awake, tired, chills. HEENT: Normal external appearance of nose and ear. Oral cavity normal EYES: Pupils equal. Conjunctiva normal. NECK: JVD not raised. Mass not palpable. RESPIRATORY: Respiratory effort increased. Some crackles CARDIOVASCULAR: First and second sounds normal. No edema. ABDOMEN: Soft. Liver and spleen not palpable. No tenderness. No mass palpable. PSYCHIATRY: Answering simple questions INVESTIGATIONS, reviewed in the clinical context: Chest x-ray film personally reviewed by me-[February 03]: Basilar infiltrate left greater than right CT brain: Chronic changes White count 8.4 hemoglobin 10.6 platelets 296. Potassium 3.8 BUN 21 creatinine 1.39 Iron 34 transfusion 129 ferritin 1364 wondering B12 [id number] 819.9 to usage 1.1 Computed tomography scan chest: Pulmonary emboli involving the right middle and right lower and left upper lobe segmental pulmonary arteries. Peripheral ground glass opacities could represent early pulmonary infarct. Hepatic cirrhosis. Colonic diverticulosis. 2-D echocardiogram: EF 5055%. Right ventricle normal. Doppler ultrasound: Negative for DVT Assessment and plan: -Basilar pneumonia, suspect gram-negative organism IV Zosyn. IV vancomycin. Blood cultures pending. Nasal MRSA screen -Acute delirium secondary to pneumonia -Acute Bilateral unprovoked pulmonary embolism IV heparin and switched over to eliquis -Possible acute pulmonary infarct secondary to PE -Diabetes mellitus type 2, chronic and oral hypoglycemic. Uncontrolled with hypoglycemia Follow Accu-Cheks. Add Levemir 12 units subcu daily at bedtime. Oral hypoglycemics held -Hyperlipidemia Lipitor -Suspect underlying CK D UA. Renal ultrasound -Essential hypertension Tenormin -Chronic rheumatoid arthritis Chronically on prednisone and methotrexate. We'll start stress dose of IV hydrocortisone IV Zosyn, IV vancomycin. Blood cultures. Nasal MRSA screen. Levemir 12 units daily at bedtime. Discussed with the family the bedside. Follow labs.
[2022-02-03] MEDS: HYDROCORTISONE SUCCINATE 100 MG/2 ML VIAL IV SCH ×2 (17:22→23:14)
[2022-02-03 17:40] LABS: Anisocytosis Slight; HCT 30.2 % (39.0-53.0); HGB 9.8 gm/dL (13.0-17.5); Hypochromasia Moderate; MCH 34.9 pg (25.0-35.0); MCHC 32.6 g/dL (31.0-37.0); MCV 107.1 fL (80.0-100.0); Macrocytosis Marked; Mean Platelet Volume 8.2; Platelet Count 251 k/uL (150-450); Poikilocytosis Moderate; RBC 2.82 m/uL (4.30-5.90); RDW 17.5 % (11.5-15.5); WBC 8.3 k/uL (3.8-10.6)
[2022-02-03 18:06] LABS: Calcium 8.2 mg/dL (8.4-10.2); Potassium 4.2 mmol/L (3.5-5.1)
[2022-02-03 20:24] LABS: Glucose,Whole Blood 208 mg/dL (70-110)
[2022-02-03 20:51] LABS: Appearance,Urine Cloudy (Clear); Bilirubin,Urine Negative (Negative); Blood,Urine Negative (Negative); Color,Urine Yellow; Glucose,Urine (UA) 1+ (Negative); Ketones,Urine Negative (Negative); Leukocyte Esterase,Urine Negative (Negative); Mucus,Urine Rare /hpf; Nitrite,Urine Negative (Negative); PH, Urine 5.5 (5.0-8.0); Protein,Urine 1+ (Negative); RBC,Urine 3 /hpf (0-5); Specific Gravity,Urine 1.019 (1.001-1.035); Squamous Epithelial Cell,Urine <1 /hpf (0-4); Urobilinogen,Urine <2.0 mg/dL (<2.0); WBC,Urine 5 /hpf (0-5)
[2022-02-03] MEDS ORDERED: INSULIN DETEMIR (LEVEMIR) 100 UNIT/ML SYR SQ SCH (21:00)
[2022-02-04 06:09] LABS: Glucose,Whole Blood 219 mg/dL (70-110)
[2022-02-04] MEDS: INSULIN ASPART (NovoLOG) 100 UNIT/ML VIAL SQ SCH ×4 (06:39→20:31)
[2022-02-04] MEDS: PANTOPRAZOLE 40 MG TABLET PO SCH ×2 (06:39→16:44)
[2022-02-04 07:32] LABS: Anisocytosis Slight; HCT 27.5 % (39.0-53.0); Hypochromasia Moderate; MCH 34.4 pg (25.0-35.0); MCHC 32.6 g/dL (31.0-37.0); MCV 105.4 fL (80.0-100.0); Macrocytosis Moderate; Mean Platelet Volume 8.1; Platelet Count 199 k/uL (150-450); Poikilocytosis Moderate; RDW 16.7 % (11.5-15.5); WBC 3.3 k/uL (3.8-10.6)
[2022-02-04 08:19] LABS: Calcium 7.9 mg/dL (8.4-10.2); Potassium 4.4 mmol/L (3.5-5.1)
--- NOTE | 2022-02-04 08:53 | US ---
EXAMINATION TYPE: US kidneys/renal and bladder DATE OF EXAM: 02/04/2022 COMPARISON: CLINICAL HISTORY: Evaluate for CK D. Abnormal labs EXAM MEASUREMENTS: Right Kidney: 10.1 x 4.3 x 5.2 cm Left Kidney: 13.5 x 5.1 x 5.7 cm Right Kidney: Cortical thinning, appears smaller in size compared to contralateral kidney Left Kidney: No hydronephrosis or masses seen Bladder: distended, anechoic Right Jet seen IMPRESSION: Correlate for chronic medical disease with cortical thinning of the right kidney.
[2022-02-04] MEDS: lisinopriL 10 MG TAB PO SCH (09:02)
[2022-02-04] MEDS: ATORVASTATIN 20 MG TAB PO SCH (09:02)
[2022-02-04] MEDS: CALCIUM CARBONATE 500 MG CHEWABLE PO SCH (09:04)
[2022-02-04] MEDS: GABAPENTIN 300 MG CAP PO SCH ×2 (09:04→20:31)
[2022-02-04] MEDS: FOLIC ACID 1 MG TAB PO SCH (09:04)
[2022-02-04] MEDS: ASPIRIN 81 MG PO SCH (09:04)
[2022-02-04] MEDS: CHOLECALCIFEROL 25 MCG (1000 IU) TABLET PO SCH (09:05)
[2022-02-04] MEDS: APIXABAN 5 MG TAB PO SCH ×2 (09:05→20:31)
[2022-02-04] MEDS: atenoloL 50 MG TAB PO SCH ×2 (09:06→20:31)
[2022-02-04] MEDS: HYDROCORTISONE SUCCINATE 100 MG/2 ML VIAL IV SCH ×2 (09:06→16:28)
[2022-02-04] MEDS: PIPERACILLIN-TAZOBACTAM 3.375 GM in SODIUM CHLORIDE 0.9% 100 ML IVPB SCH ×2 (09:06→16:29)
[2022-02-04 09:14] LABS: Band Neutrophils % 1 %; Lymphocytes # (M) 0.43 k/uL (1.0-4.8); Monocytes # (M) 0.07 k/uL (0-1.0); Neutrophils % (M) 84 %; Nucleated Red Blood Cells 0 /100 WBC (0-0); Total Cells Counted 100
[2022-02-04 11:34] LABS: Glucose,Whole Blood 336 mg/dL (70-110)
[2022-02-04] MEDS ORDERED: VANCOMYCIN 1,750 MG in SODIUM CHLORIDE 0.9% 500 ML 500 ML IVPB ONE (12:00)
[2022-02-04] MEDS: SODIUM CHLORIDE 0.9% 1,000 ML IV SCH (13:14)
--- NOTE | 2022-02-04 13:50 | P.PN ---
Progress Note - Text Progress Note Date: 02/04/22 Hospital course 76-year-old man with medical history of hypertension, hyperlipidemia, diabetes, rheumatoid arthritis on chronic steroids presented for abdominal, chest pain. Patient says that for the last 1 week he's noticed that he has had difficulty eating, in which she had nausea and vomiting directly after trying to take in anything my mouth. Consequently, he has not taken any of his medications this week. Furthermore, he noticed that his stools have become soft and black and are associated with a burning type pain in his stomach. He also reports to me that he's had associated difficulty breathing with ambulation. He denies fevers, chills, palpitations, syncope, presyncope, constipation, dysuria, dyschezia, numbness/weakness of extremities. In the emergency room, patient is afebrile, 168/72, heart rate 110, 96% on room air. CBC shows mild anemia down to 11.4, MCV of 103.9. Chemistries show a low sodium at 133, CO2 of 15. Liver function tests show total bilirubin of 1.9, ALT of 53, total protein of 6.2, albumin of 3.4. Amylase was 135. Lipase was 504. D-dimer was elevated at 2.12. Covid was negative. Patient underwent gallbladder ultrasound which showed no evidence for an acute abdominal process. Chest x-ray demonstrated cardiomegaly but no acute pulmonary process. Chest CTA was significant for pulmonary emboli involving the right middle, right lower, left upper lobes, with no evidence of right heart strain as well as peripheral ground last opacities that could represent early pulmonary infarct. EKG showed tachycardia with an ectopic atrial pacemaker, right bundle brandie block, left anterior fascicular block, LVH. Admitted with unprovoked pulmonary embolism. Started IV heparin. February 03: I assumed care of the patient from [facility] today. Patient spiking fevers. Chills. Congested chest. Family at the bedside. Started on IV Zosyn. X-ray showing infiltrates. Started on eliquis. Decreased appetite. Tired. Was slightly delirious/confused earlier. Did sit up in a chair earlier. February 04: Up in a recliner. Respiratory symptoms better. Worsening renal function. DC vancomycin. Start saline 75 mL an hour. Eating some. Discussed with the patient and . Cutback dose of Neurontin in the setting of acute kidney injury. Also hold lisinopril. Because of renal function and lower blood pressure. Active Medications Acetaminophen (Acetaminophen Tab 325 Mg Tab) 650 mg PO Q6HR PRN PRN Reason: Fever and/ or Pain Last Admin: 02/03/22 09:09 Dose: 650 mg Apixaban (Apixaban 5 Mg Tab) 10 mg PO BID [facility]; Protocol Stop: 02/10/22 09:01 Last Admin: 02/04/22 09:05 Dose: 10 mg Aspirin (Aspirin 81 Mg) 81 mg PO DAILY [facility] Last Admin: 02/04/22 09:04 Dose: 81 mg Atenolol (Atenolol 50 Mg Tab) 50 mg PO BID [facility] Last Admin: 02/04/22 09:06 Dose: 50 mg Atorvastatin Calcium (Atorvastatin 20 Mg Tab) 20 mg PO DAILY [facility] Last Admin: 02/04/22 09:02 Dose: 20 mg Calcium Carbonate/Glycine (Calcium Carbonate 500 Mg Chewable) 500 mg PO DAILY [facility] Last Admin: 02/04/22 09:04 Dose: 500 mg Cholecalciferol (Cholecalciferol 25 Mcg (1000 Iu) Tablet) 25 mcg PO DAILY [facility] Last Admin: 02/04/22 09:05 Dose: 25 mcg Clonidine (Clonidine Hcl 0.2 Mg Tab) 0.2 mg PO TID PRN PRN Reason: Blood Pressure - High Last Admin: 02/01/22 20:09 Dose: 0.2 mg Folic Acid (Folic Acid 1 Mg Tab) 1 mg PO DAILY [facility] Last Admin: 02/04/22 09:04 Dose: 1 mg Gabapentin (Gabapentin 300 Mg Cap) 600 mg PO HS [facility] Hydrocortisone Sodium Succinate (Hydrocortisone Succinate 100 Mg/2 Ml Vial) 50 mg IV Q8HR [facility] Piperacillin Sod/Tazobactam (Sod 3.375 gm/ Sodium Chloride) 100 mls @ 25 mls/hr IVPB Q8HR [facility]; Protocol Last Admin: 02/04/22 09:06 Dose: 25 mls/hr Sodium Chloride (Saline 0.9%) 1,000 mls @ 75 mls/hr IV .[id number] [facility] Last Admin: 02/04/22 13:14 Dose: 75 mls/hr Insulin Aspart (Insulin Aspart (Novolog) 100 Unit/Ml Vial) 0 unit SQ AC-TID [facility]; Protocol Last Admin: 02/04/22 13:14 Dose: 6 unit Insulin Detemir (Insulin Detemir (Levemir) 100 Unit/Ml Syr) 12 unit SQ HS [facility] Last Admin: 02/03/22 20:35 Dose: 12 unit Miscellaneous Information (Potassium Replacement Protocol 1 Each Misc) 1 each MISCELLANE DAILY PRN; Protocol PRN Reason: Per Protocol Pantoprazole Sodium (Pantoprazole 40 Mg Tablet) 40 mg PO AC-BID [facility] Last Admin: 02/04/22 06:39 Dose: 40 mg On examination: VITAL SIGNS: 97.5, 75, 20, 1/45, 95% on 3 L GENERAL APPEARANCE: Up in a recliner, awake tired HEENT: Normal external appearance of nose and ear. Oral cavity normal EYES: Pupils equal. Conjunctiva normal. NECK: JVD not raised. Mass not palpable. RESPIRATORY: Respiratory effort increased. Decreased breath sounds CARDIOVASCULAR: First and second sounds normal. No edema. ABDOMEN: Soft. Liver and spleen not palpable. No tenderness. No mass palpable. PSYCHIATRY: Answering questions appropriately INVESTIGATIONS, reviewed in the clinical context: Ultrasound: Right kidney cortical thinning and small in size. UA protein 1+ February 04: White count 3.3 hemoglobin 9 platelets 19 potassium 4.4. 39 creatini ne 2.63 pro-calcitonin 0.43 Chest x-ray film personally reviewed by me-[February 03]: Basilar infiltrate left greater than right CT brain: Chronic changes White count 8.4 hemoglobin 10.6 platelets 296. Potassium 3.8 BUN 21 creatinine 1.39 Iron 34 transfusion 129 ferritin 1364 wondering B12 81021 819.9 to usage 1.1 Computed tomography scan chest: Pulmonary emboli involving the right middle and right lower and left upper lobe segmental pulmonary arteries. Peripheral ground glass opacities could represent early pulmonary infarct. Hepatic cirrhosis. Colonic diverticulosis. 2-D echocardiogram: EF 5055%. Right ventricle normal. Doppler ultrasound: Negative for DVT Assessment and plan: -Basilar pneumonia, suspect gram-negative organism IV Zosyn. IV vancomycin-discontinue. Blood cultures pending. Nasal MRSA screen -Acute delirium secondary to pneumonia: Better -Acute Bilateral unprovoked pulmonary embolism IV heparin and switched over to eliquis -Possible acute pulmonary infarct secondary to PE -Diabetes mellitus type 2, chronic and oral hypoglycemic. Uncontrolled with hypoglycemia Follow Accu-Cheks. Increase Levemir 20 units subcu daily at bedtime. Resume Amaryl -Hyperlipidemia Lipitor - underlying CK D STAGE III likely nephrosclerosis Admission creatinine 1.15 -Acute kidney injury likely nephrosclerosis Hold lisinopril. IV fluids. -Essential hypertension Tenormin -Chronic rheumatoid arthritis Chronically on prednisone and methotrexate. stress dose of IV hydrocortisone IV Zosyn, IV vancomycin-discontinue. Increase Levemir 20 units daily at bedtime. Current diagnoses of Neurontin setting of acute kidney injury. Follow labs. Discussed with the patient and . Decrease hydrocortisone to 50 mg every 8.
--- NOTE | 2022-02-04 14:14 | P.PN ---
Subjective Progress Note Date: 02/04/22 HISTORY OF PRESENT ILLNESS: This is a 76-year-old gentleman with a past medical history significant for rheumatoid arthritis as well as diabetes and hypertension and dyslipidemia pr esented to the hospital complaining of epigastric discomfort started about a week ago. The patient somewhat is a poor historian. He states that the discomfort started about a week ago and mainly in the epigastric area and upper chest as well. His symptoms were associated with nausea and vomiting as well as. He also reports some shortness of breath. No dizziness or lightheadedness and no feeling of heart racing or fluttering and no presyncope or syncope. He denies any fever or chills. 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 Subsequently he underwent a d-dimer and that came in to be elevated. Computed tomography scan of the chest was performed and showed pulmonary embolism involving the right middle and right lower and left upper lobe. No evidence of RV strain seen by the computed tomography scan but we are getting an echocardiogram for further clarification. Otherwise the patient seems to be hemodynamically stable. When he presented to the hospital he was tachycardic but currently his heart rate is within normal limits. He is maintaining normal blood pressure. He is not on any oxygen. Beside the mildly elevated troponin his NT proBNP was within normal limits. He seems to be not in any pain or distress when he was seen and examined. No history of DVT and no history of PE before. 02/03/2022 He was seen this morning. Overall he is feeling better. He feels weak. No symptoms of chest pain or epigastric discomfort and no symptoms of shortness of breath at this point. The computed tomography scan did not show any evidence off cardiac strain. Hemodynamically the patient is a stable. He is not hypoxic as well. The troponin came in to be slightly elevated but and the proBNP came to be within normal limits. Overall his diagnosis seems to be consistent with non-massive a PE. At this point I'm going to DC the heparin and start the patient on Eliquis 10 mg by mouth twice a day for a week and then he will be switched into 5 mg by mouth twice a day. Follow-up on the echocardiogram 02/04/2022 Patient examined this morning. Patient is sitting up in the chair. Patient denies chest pain or pressure. He denies shortness of breath. He has been transitioned to Eliquis. Echocardiogram reveals ejection fraction 50-55%. PHYSICAL EXAM: VITAL SIGNS: Reviewed. GENERAL: Well-developed in no acute distress. NECK: Supple. No JVD or thyromegaly LUNGS: Respirations even and unlabored. Lungs essentially clear to auscultation bilaterally. HEART: Regular rate and rhythm. S1 and S2 heard. EXTREMITIES: Normal range of motion. No clubbing or cyanosis. Peripheral pulses intact. No lower extremity edema ASSESSMENT: Pulmonary embolism Sinus tachycardia, secondary to above, improved Hypertension PLAN: Continue anticoagulation with Eliquis Patient is Afshan stable from a cardiac standpoint We will sign off. Patient to follow up on an outpatient basis with Dr. Patel Nurse practitioner note has been reviewed by physician. Signing provider agrees with the documented findings, assessment, and plan of care. Objective - Vital Signs Vital signs: Vital Signs Temp 97.7 F 02/04/22 12:00 Pulse 78 02/04/22 12:00 Resp 18 02/04/22 12:00 BP 118/64 02/04/22 12:00 Pulse Ox 99 02/04/22 12:00 FiO2 Intake & Output 02/03/22 02/04/22 02/04/22 18:59 06:59 18:59 Intake Total 240 240 Output Total 200 150 300 Balance 40 -150 -60 Intake: Oral 240 240 Output: Urine 200 150 300 Other: Voiding Method Urinal Urinal Urinal # Voids 1 - Labs CBC & Chem 7: 02/04/22 07:00 02/04/22 07:00 Labs: Abnormal Lab Results - Last 24 Hours (Table) 02/03/22 02/03/22 02/03/22 Range/Units 16:41 17:20 17:20 WBC (3.8-10.6) k/uL RBC 2.82 L (4.30-5.90) m/uL Hgb 9.8 L (13.0-17.5) gm/dL Hct 30.2 L (39.0-53.0) % MCV 107.1 H (80.0-100.0) fL RDW 17.5 H (11.5-15.5) % Lymphocytes # (Manual) (1.0-4.8) k/uL Macrocytosis Marked A Sodium 132 L (137-145) mmol/L Chloride (98-107) mmol/L Carbon Dioxide 18 L (22-30) mmol/L BUN 36 H (9-20) mg/dL Creatinine 2.61 H (0.66-1.25) mg/dL Glucose 154 H (74-99) mg/dL POC Glucose (mg/dL) 138 H (70-110) mg/dL Calcium 8.2 L (8.4-10.2) mg/dL Procalcitonin (0.02-0.09) ng/mL Urine Protein (Negative) Urine Glucose (UA) (Negative) Urine Mucus (None) /hpf 02/03/22 02/03/22 02/03/22 Range/Units 17:20 20:22 20:30 WBC (3.8-10.6) k/uL RBC (4.30-5.90) m/uL Hgb (13.0-17.5) gm/dL Hct (39.0-53.0) % MCV (80.0-100.0) fL RDW (11.5-15.5) % Lymphocytes # (Manual) (1.0-4.8) k/uL Macrocytosis Sodium (137-145) mmol/L Chloride (98-107) mmol/L Carbon Dioxide (22-30) mmol/L BUN (9-20) mg/dL Creatinine (0.66-1.25) mg/dL Glucose (74-99) mg/dL POC Glucose (mg/dL) 208 H (70-110) mg/dL Calcium (8.4-10.2) mg/dL Procalcitonin 0.55 H (0.02-0.09) ng/mL Urine Protein 1+ H (Negative) Urine Glucose (UA) 1+ H (Negative) Urine Mucus Rare H (None) /hpf 02/04/22 02/04/22 02/04/22 Range/Units 06:07 07:00 07:00 WBC 3.3 L (3.8-10.6) k/uL RBC 2.60 L (4.30-5.90) m/uL Hgb 9.0 L (13.0-17.5) gm/dL Hct 27.5 L (39.0-53.0) % MCV 105.4 H (80.0-100.0) fL RDW 16.7 H (11.5-15.5) % Lymphocytes # (Manual) 0.43 L (1.0-4.8) k/uL Macrocytosis Sodium (137-145) mmol/L Chloride (98-107) mmol/L Carbon Dioxide (22-30) mmol/L BUN (9-20) mg/dL Creatinine (0.66-1.25) mg/dL Glucose (74-99) mg/dL POC Glucose (mg/dL) 219 H (70-110) mg/dL Calcium (8.4-10.2) mg/dL Procalcitonin 0.43 H (0.02-0.09) ng/mL Urine Protein (Negative) Urine Glucose (UA) (Negative) Urine Mucus (None) /hpf 02/04/22 02/04/22 Range/Units 07:00 11:33 WBC (3.8-10.6) k/uL RBC (4.30-5.90) m/uL Hgb (13.0-17.5) gm/dL Hct (39.0-53.0) % MCV (80.0-100.0) fL RDW (11.5-15.5) % Lymphocytes # (Manual) (1.0-4.8) k/uL Macrocytosis Sodium 134 L (137-145) mmol/L Chloride 109 H (98-107) mmol/L Carbon Dioxide 19 L (22-30) mmol/L BUN 39 H (9-20) mg/dL Creatinine 2.63 H (0.66-1.25) mg/dL Glucose 201 H (74-99) mg/dL POC Glucose (mg/dL) 336 H (70-110) mg/dL Calcium 7.9 L (8.4-10.2) mg/dL Procalcitonin (0.02-0.09) ng/mL Urine Protein (Negative) Urine Glucose (UA) (Negative) Urine Mucus (None) /hpf
--- NOTE | 2022-02-04 14:26 | P.PN ---
Subjective Progress Note Date: 02/04/22 76-year-old male who follows with Dr. Pike, seen in the emergency department, on February 01. He came in with shortness of breath that began earlier this past week. He denied any chest pain. He apparently had nausea, but dry heaves. He also complained of epigastric and right upper quadrant abdominal pain. There is no fever or chills. Again no chest pain or chest discomfort. He was evaluated in the emergency department and was found to have pulmonary embolism. For this reason, he is admitted. He does not apparently has any clear-cut triggers or risk factors for pulmonary embolism. There is no active cancer. The patient is a bit sedentary, but does get up and move around. His been no surgery to the lower extremities, or trauma to the lower extremities. There is no prior history of pulmonary embolism. In addition to the primary doctor, he sees a funeral director and embalmer, metallic this, and foot doctor as well. Also, he sees an electrocardiogram technician for his diabetes. White count 6.3, hemoglobin 10, hematocrit 7, and platelet count 223,000. PTT is 66.5. Sodium 133, potassium 3.8, chlorides 104, CO2 21, BUN 21, and creatinine 1.39. Gallbladder ultrasound was negative. Chest x-ray shows cardiomegaly, without an acute process. CT angiogram showed pulmonary emboli involving the right middle lobe, right lower lobe, left upper lobe, without right heart strain. Echocardiogram is pending. Progress note dated 02/03/2022. This is a patient who we saw yesterday in consultation for shortness of breath. The patient was found to have a pulmonary embolism. The patient was on IV heparin, and is currently on Eliquis. In addition, the patient's on O2 at 3 L. He appears to be stable. His shortness of breath is improved. No blood work today. Dopplers of the lower extremities were negative for DVT. On today's evaluation of 02/04/2022, the patient is being seen for a follow-up. Note that the patient is an unprovoked pulmonary embolism with a negative Doppler of the lower extremity. The patient is currently on 3 L about 2 by nasal cannula. The patient was taken off the IV heparin and started on anticoagulation with Eliquis 10 mg by mouth twice a day. At the same time, the patient has developed an acute kidney injury. This could be a combination of drug effect and contrast nephropathy. The patient was taken lisinopril outpatient basis. There could have been also a component of dehydration. The patient is currently receiving normal saline at the rate of 75 mL an hour. Based on the numbers, the patient's creatinine is on the rise and is up to 2.63 and his sodium level is at 134. As same time, the patient has a white cell count 3.3 with a hemoglobin of 9.0 and a platelet count of 199. The patient's blood sugar is also elevated at 336. The patient is known to have diabetes. Currently is on Levemir insulin 20 units in addition to his eyes Coverage. He is known to have rheumatoid arthritis and the patient was taken and bilateral injections on outpatient basis. He is also on methotrexate. Objective - Vital Signs Vital signs: Vital Signs Temp 97.5 F L 02/04/22 08:00 Pulse 75 02/04/22 08:00 Resp 20 02/04/22 08:00 BP 108/45 02/04/22 08:00 Pulse Ox 95 02/04/22 08:00 FiO2 Intake & Output 02/03/22 02/04/22 02/04/22 18:59 06:59 18:59 Intake Total 240 240 Output Total 200 150 300 Balance 40 -150 -60 Intake: Oral 240 240 Output: Urine 200 150 300 Other: Voiding Method Urinal Urinal Urinal # Voids 1 - Exam No acute distress, oriented 3. No respiratory distress. Currently on 3 L. Saturations are 96%. HEENT examination is grossly unremarkable. Neck supple. Full range of motion. No adenopathy thyromegaly or neck vein distention. Cardiovascular examination reveals regular rhythm rate. S1-S2 normal. No S3 or S4. No discernible murmur noted. Heart rate 88 bpm. Lungs reveal clear breath sounds. Breath sounds are equal bilaterally. No adventitious lung sounds including wheezes rhonchi or crackles. Abdomen soft bowel sounds are heard. No masses or tenderness. Extremities are intact. No cyanosis clubbing or edema. Skin is without rash or lesion. Neurologic examination is brief but nonfocal. - Labs CBC & Chem 7: 02/04/22 07:00 02/04/22 07:00 Labs: Abnormal Lab Results - Last 24 Hours (Table) 08/0602/03/22 02/03/22 Range/Units 07:26 16:41 17:20 WBC (3.8-10.6) k/uL RBC 2.82 L (4.30-5.90) m/uL Hgb 9.8 L (13.0-17.5) gm/dL Hct 30.2 L (39.0-53.0) % MCV 107.1 H (80.0-100.0) fL RDW 17.5 H (11.5-15.5) % Lymphocytes # (Manual) (1.0-4.8) k/uL Macrocytosis Marked A Sodium (137-145) mmol/L Chloride (98-107) mmol/L Carbon Dioxide (22-30) mmol/L BUN (9-20) mg/dL Creatinine (0.66-1.25) mg/dL Glucose (74-99) mg/dL POC Glucose (mg/dL) 138 H (70-110) mg/dL Calcium (8.4-10.2) mg/dL Iron 34 L (65-175) ug/dL Transferrin 129.0 L (204.0-354.0) mg/dL Ferritin 1364.0 H (22.0-322.0) ng/mL Vitamin B12 1117.0 H (200.0-944.0) pg/mL Procalcitonin (0.02-0.09) ng/mL Urine Protein (Negative) Urine Glucose (UA) (Negative) Urine Mucus (None) /hpf 02/03/22 02/03/22 02/03/22 Range/Units 17:20 17:20 20:22 WBC (3.8-10.6) k/uL RBC (4.30-5.90) m/uL Hgb (13.0-17.5) gm/dL Hct (39.0-53.0) % MCV (80.0-100.0) fL RDW (11.5-15.5) % Lymphocytes # (Manual) (1.0-4.8) k/uL Macrocytosis Sodium 132 L (137-145) mmol/L Chloride (98-107) mmol/L Carbon Dioxide 18 L (22-30) mmol/L BUN 36 H (9-20) mg/dL Creatinine 2.61 H (0.66-1.25) mg/dL Glucose 154 H (74-99) mg/dL POC Glucose (mg/dL) 208 H (70-110) mg/dL Calcium 8.2 L (8.4-10.2) mg/dL Iron (65-175) ug/dL Transferrin (204.0-354.0) mg/dL Ferritin (22.0-322.0) ng/mL Vitamin B12 (200.0-944.0) pg/mL Procalcitonin 0.55 H (0.02-0.09) ng/mL Urine Protein (Negative) Urine Glucose (UA) (Negative) Urine Mucus (None) /hpf 02/03/22 02/04/22 02/04/22 Range/Units 20:30 06:07 07:00 WBC (3.8-10.6) k/uL RBC (4.30-5.90) m/uL Hgb (13.0-17.5) gm/dL Hct (39.0-53.0) % MCV (80.0-100.0) fL RDW (11.5-15.5) % Lymphocytes # (Manual) (1.0-4.8) k/uL Macrocytosis Sodium (137-145) mmol/L Chloride (98-107) mmol/L Carbon Dioxide (22-30) mmol/L BUN (9-20) mg/dL Creatinine (0.66-1.25) mg/dL Glucose (74-99) mg/dL POC Glucose (mg/dL) 219 H (70-110) mg/dL Calcium (8.4-10.2) mg/dL Iron (65-175) ug/dL Transferrin (204.0-354.0) mg/dL Ferritin (22.0-322.0) ng/mL Vitamin B12 (200.0-944.0) pg/mL Procalcitonin 0.43 H (0.02-0.09) ng/mL Urine Protein 1+ H (Negative) Urine Glucose (UA) 1+ H (Negative) Urine Mucus Rare H (None) /hpf 02/04/22 02/04/22 02/04/22 Range/Units 07:00 07:00 11:33 WBC 3.3 L (3.8-10.6) k/uL RBC 2.60 L (4.30-5.90) m/uL Hgb 9.0 L (13.0-17.5) gm/dL Hct 27.5 L (39.0-53.0) % MCV 105.4 H (80.0-100.0) fL RDW 16.7 H (11.5-15.5) % Lymphocytes # (Manual) 0.43 L (1.0-4.8) k/uL Macrocytosis Sodium 134 L (137-145) mmol/L Chloride 109 H (98-107) mmol/L Carbon Dioxide 19 L (22-30) mmol/L BUN 39 H (9-20) mg/dL Creatinine 2.63 H (0.66-1.25) mg/dL Glucose 201 H (74-99) mg/dL POC Glucose (mg/dL) 336 H (70-110) mg/dL Calcium 7.9 L (8.4-10.2) mg/dL Iron (65-175) ug/dL Transferrin (204.0-354.0) mg/dL Ferritin (22.0-322.0) ng/mL Vitamin B12 (200.0-944.0) pg/mL Procalcitonin (0.02-0.09) ng/mL Urine Protein (Negative) Urine Glucose (UA) (Negative) Urine Mucus (None) /hpf Assessment and Plan Plan: Unprovoked, bilateral pulmonary emboli, without right heart strain.. The patient is currently on oxygen at 3 L per minute nasal cannula. Doppler of the lower extremity was negative and the patient was initially started on IV heparin currently the patient is on anticoagulation with Eliquis. Breathing is comfor table. No significant shortness of breath. Unprovoked pulmonary embolism, bilateral with negative DVTs. Acute kidney injury, creatinine is stable at 2.6 and a patient is producing adequate urine output for now. Rule out contrast-induced nephropathy. The ultrasound the kidneys showed no evidence of any hydronephrosis. The patient has developed an acute kidney injury. History of diabetes mellitus. The patient was started on Levemir insulin for blood sugar control. In addition to a sliding scale coverage. History of hyperlipidemia. History of essential hypertension. History of rheumatoid arthritis him a maintained on Enbrel injections in addition to methotrexate. Plan Continue anticoagulation with Eliquis Continue normal saline at the rate of 75 mL an hour Avoid nephrotoxic agents maintenance. Continue the antibiotics patient is currently on a stress dose hydrocortisone as the patient was taking steroids on outpatient basis in combination with methotrexate and Enbrel We'll continue to follow.
--- NOTE | 2022-02-04 14:52 | CDI ---
Documentation Clarification Form Date: 02/04/2022 02:22:22 PM From: Shobha Dale RN CCDS Admit Date: 02/01/2022 03:39:00 PM Patient Name: Guero Fernandez Visit Number: [id number] Discharge Date: ATTENTION: The Clinical Documentation Specialists (CDI) and [facility] Coding Staff appreciate your assistance in clarifying documentation. Please respond to the clarification below the line at the bottom and electronically sign. The CDI & [facility] Coding staff will review the response and follow-up if needed. Please note: Queries are made part of the Legal Health Record. If you have any questions, please contact the author of this message via ITS. Dr. Aries Vincent Encephalopathy is documented 02/03, Medicine progress note. Additional clarification regarding the type of encephalopathy is requested. History/Risk Factors: 76 -year-old man presents to the ED for abdominal pain, chest pain, difficulty eating with nausea and vomiting. Medical History: DM, HTN ,HLD and RA. 02/01, H&P. Clinical Indicators: Diagnosis: Acute submissive pulmonary embolism and Gram-negative pneumonia. Labs 02/03: Wbc 7.6; Hgb 11.4 Lymphocytes; NA 133; Carbon dioxide 15; Glucose 181 ; Total bli 1.9; Alt 53; trop 0.053 CTA, 02/01: Pulmonary emboli involving the right middle, right lower and left upper lobes segmental pulmonary arteries. Peripheral round glass opacities CT Brain, 02/03: Nonspecific white matter changes, likely secondary to chronic small vessel ischemic disease. 02/03, Medicine progress note: Acute delirium secondary to pneumonia. Treatment: 02/01 0.9NS 1L bolus x 1; 02/01 02/03 Heparin IVPB; 02/03 Eliquis 10mg PO BID DAVID; 02/03 Zosyn 3.375 IVPB Q8HR; 02/03 02/04 Solu-Cortef 100mg IV Q8HR. Please clarify the type of encephalopathy, if known: [ ] Metabolic Encephalopathy [ ] Other, please specify [ ] Unable to determine (Template Last Revised: August 2020) Acute delirium with metabolic encephalopathy MTDD
[2022-02-04 16:25] LABS: Glucose,Whole Blood 430 mg/dL (70-110)
[2022-02-04] MEDS: GLIMEPIRIDE 2 MG TAB PO SCH (16:29)
[2022-02-04 20:07] LABS: Glucose,Whole Blood 347 mg/dL (70-110)
[2022-02-04] MEDS ORDERED: INSULIN DETEMIR (LEVEMIR) 100 UNIT/ML SYR SQ SCH (21:00)
[2022-02-05] MEDS: PIPERACILLIN-TAZOBACTAM 3.375 GM in SODIUM CHLORIDE 0.9% 100 ML IVPB SCH ×3 (00:22→17:02)
[2022-02-05] MEDS: HYDROCORTISONE SUCCINATE 100 MG/2 ML VIAL IV SCH ×3 (00:23→16:59)
[2022-02-05 06:01] LABS: Glucose,Whole Blood 244 mg/dL (70-110)
[2022-02-05] MEDS: GLIMEPIRIDE 2 MG TAB PO SCH (06:36)
[2022-02-05] MEDS: PANTOPRAZOLE 40 MG TABLET PO SCH ×2 (06:36→16:59)
[2022-02-05] MEDS: INSULIN ASPART (NovoLOG) 100 UNIT/ML VIAL SQ SCH ×4 (06:36→22:14)
[2022-02-05] MEDS: SODIUM CHLORIDE 0.9% 1,000 ML IV SCH ×2 (06:37→22:13)
[2022-02-05] MEDS: APIXABAN 5 MG TAB PO SCH ×2 (09:14→22:12)
[2022-02-05] MEDS: FOLIC ACID 1 MG TAB PO SCH (09:14)
[2022-02-05] MEDS: ASPIRIN 81 MG PO SCH (09:14)
[2022-02-05] MEDS: atenoloL 50 MG TAB PO SCH ×2 (09:14→22:13)
[2022-02-05] MEDS: CHOLECALCIFEROL 25 MCG (1000 IU) TABLET PO SCH (09:14)
[2022-02-05] MEDS: CALCIUM CARBONATE 500 MG CHEWABLE PO SCH (09:14)
[2022-02-05] MEDS: ATORVASTATIN 20 MG TAB PO SCH (09:14)
[2022-02-05 09:16] LABS: Anisocytosis Slight; HCT 28.2 % (39.0-53.0); HGB 9.1 gm/dL (13.0-17.5); Hypochromasia Moderate; MCH 35.2 pg (25.0-35.0); MCHC 32.4 g/dL (31.0-37.0); MCV 108.8 fL (80.0-100.0); Macrocytosis Marked; Mean Platelet Volume 8.3; Platelet Count 232 k/uL (150-450); Poikilocytosis Moderate; RBC 2.59 m/uL (4.30-5.90); RDW 17.3 % (11.5-15.5); WBC 5.5 k/uL (3.8-10.6)
[2022-02-05 09:26] LABS: Lymphocytes # (M) 0.55 k/uL (1.0-4.8); Monocytes # (M) 0.22 k/uL (0-1.0); Neutrophils # (M) 4.73 k/uL (1.3-7.7); Neutrophils % (M) 86 %; Nucleated Red Blood Cells 0 /100 WBC (0-0); Poikilocytosis (M) Present; Total Cells Counted 100
[2022-02-05 09:27] LABS: Polychromasia Present
[2022-02-05 09:39] LABS: Calcium 7.8 mg/dL (8.4-10.2)
--- NOTE | 2022-02-05 10:51 | P.PN ---
Progress Note - Text Progress Note Date: 02/05/22 Hospital course 76-year-old man with medical history of hypertension, hyperlipidemia, diabetes, rheumatoid arthritis on chronic steroids presented for abdominal, chest pain. Patient says that for the last 1 week he's noticed that he has had difficulty eating, in which she had nausea and vomiting directly after trying to take in anything my mouth. Consequently, he has not taken any of his medications this week. Furthermore, he noticed that his stools have become soft and black and are associated with a burning type pain in his stomach. He also reports to me that he's had associated difficulty breathing with ambulation. He denies fevers, chills, palpitations, syncope, presyncope, constipation, dysuria, dyschezia, numbness/weakness of extremities. In the emergency room, patient is afebrile, 168/72, heart rate 110, 96% on room air. CBC shows mild anemia down to 11.4, MCV of 103.9. Chemistries show a low sodium at 133, CO2 of 15. Liver function tests show total bilirubin of 1.9, ALT of 53, total protein of 6.2, albumin of 3.4. Amylase was 135. Lipase was 504. D-dimer was elevated at 2.12. Covid was negative. Patient underwent gallbladder ultrasound which showed no evidence for an acute abdominal process. Chest x-ray demonstrated cardiomegaly but no acute pulmonary process. Chest CTA was significant for pulmonary emboli involving the right middle, right lower, left upper lobes, with no evidence of right heart strain as well as peripheral ground last opacities that could represent early pulmonary infarct. EKG showed tachycardia with an ectopic atrial pacemaker, right bundle brandie block, left anterior fascicular block, LVH. Admitted with unprovoked pulmonary embolism. Started IV heparin. February 03: I assumed care of the patient from sound physicians today. Patient spiking fevers. Chills. Congested chest. Family at the bedside. Started on IV Zosyn. X-ray showing infiltrates. Started on eliquis. Decreased appetite. Tired. Was slightly delirious/confused earlier. Did sit up in a chair earlier. February 04: Up in a recliner. Respiratory symptoms better. Worsening renal function. DC vancomycin. Start saline 75 mL an hour. Eating some. Discussed with the patient and . Cutback dose of Neurontin in the setting of acute kidney injury. Also hold lisinopril. Because of renal function and lower blood pressure. February 05: Up in a recliner. Breathing better. Labs from this morning are pending. IV fluids 75 mL an hour. No pain. Discussed with the patient. Continue Zosyn. Active Medications Acetaminophen (Acetaminophen Tab 325 Mg Tab) 650 mg PO Q6HR PRN PRN Reason: Fever and/ or Pain Last Admin: 02/03/22 09:09 Dose: 650 mg Apixaban (Apixaban 5 Mg Tab) 10 mg PO BID [facility]; Protocol Stop: 02/10/22 09:01 Last Admin: 02/05/22 09:14 Dose: 10 mg Aspirin (Aspirin 81 Mg) 81 mg PO DAILY [facility] Last Admin: 02/05/22 09:14 Dose: 81 mg Atenolol (Atenolol 50 Mg Tab) 50 mg PO BID [facility] Last Admin: 02/05/22 09:14 Dose: 50 mg Atorvastatin Calcium (Atorvastatin 20 Mg Tab) 20 mg PO DAILY [facility] Last Admin: 02/05/22 09:14 Dose: 20 mg Calcium Carbonate/Glycine (Calcium Carbonate 500 Mg Chewable) 500 mg PO DAILY [facility] Last Admin: 02/05/22 09:14 Dose: 500 mg Cholecalciferol (Cholecalciferol 25 Mcg (1000 Iu) Tablet) 25 mcg PO DAILY [facility] Last Admin: 02/05/22 09:14 Dose: 25 mcg Clonidine (Clonidine Hcl 0.2 Mg Tab) 0.2 mg PO TID PRN PRN Reason: Blood Pressure - High Last Admin: 02/01/22 20:09 Dose: 0.2 mg Folic Acid (Folic Acid 1 Mg Tab) 1 mg PO DAILY [facility] Last Admin: 02/05/22 09:14 Dose: 1 mg Gabapentin (Gabapentin 300 Mg Cap) 600 mg PO HS [facility] Last Admin: 02/04/22 20:31 Dose: 600 mg Glimepiride (Glimepiride 2 Mg Tab) 2 mg PO AC-BRKFST [facility] Last Admin: 02/05/22 06:36 Dose: 2 mg Hydrocortisone Sodium Succinate (Hydrocortisone Succinate 100 Mg/2 Ml Vial) 50 mg IV Q8HR [facility] Last Admin: 02/05/22 09:14 Dose: 50 mg Piperacillin Sod/Tazobactam (Sod 3.375 gm/ Sodium Chloride) 100 mls @ 25 mls/hr IVPB Q8HR [facility]; Protocol Last Admin: 02/05/22 09:15 Dose: 25 mls/hr Sodium Chloride (Saline 0.9%) 1,000 mls @ 75 mls/hr IV .[id number] [facility] Last Admin: 02/05/22 06:37 Dose: 75 mls/hr Insulin Aspart (Insulin Aspart (Novolog) 100 Unit/Ml Vial) 0 unit SQ ACHS [facility]; Protocol Last Admin: 02/05/22 06:36 Dose: 4 unit Insulin Detemir (Insulin Detemir (Levemir) 100 Unit/Ml Syr) 20 unit SQ HS [facility] Last Admin: 02/04/22 20:30 Dose: 20 unit Miscellaneous Information (Potassium Replacement Protocol 1 Each Misc) 1 each MISCELLANE DAILY PRN; Protocol PRN Reason: Per Protocol Pantoprazole Sodium (Pantoprazole 40 Mg Tablet) 40 mg PO AC-BID [facility] Last Admin: 02/05/22 06:36 Dose: 40 mg On examination: VITAL SIGNS: 98, 74, 18, 141 message 9, 96% on 3 L GENERAL APPEARANCE: Up in a recliner, awake , looking better HEENT: Normal external appearance of nose and ear. Oral cavity normal EYES: Pupils equal. Conjunctiva normal. NECK: JVD not raised. Mass not palpable. RESPIRATORY: Respiratory effort increased. Some basal crackles. CARDIOVASCULAR: First and second sounds normal. No edema. ABDOMEN: Soft. Liver and spleen not palpable. No tenderness. No mass palpable. PSYCHIATRY: Answering questions appropriately INVESTIGATIONS, reviewed in the clinical context: February 05: White count 5.5 hemoglobin 9.1 platelets 232 potassium 4. 43 creatinine 1.93 Ultrasound: Right kidney cortical thinning and small in size. UA protein 1+ February 04: White count 3.3 hemoglobin 9 platelets 19 potassium 4.4. 39 creatinine 2.63 pro-calcitonin 0.43 Chest x-ray film personally reviewed by me-[February 03]: Basilar infiltrate left greater than right CT brain: Chronic changes White count 8.4 hemoglobin 10.6 platelets 296. Potassium 3.8 BUN 21 creatinine 1.39 Iron 34 transfusion 129 ferritin 1364 wondering [id number] 819.9 to usage 1.1 Computed tomography scan chest: Pulmonary emboli involving the right middle and right lower and left upper lobe segmental pulmonary arteries. Peripheral ground glass opacities could represent early pulmonary infarct. Hepatic cirrhosis. Colonic diverticulosis. 2-D echocardiogram: EF 5055%. Right ventricle normal. Doppler ultrasound: Negative for DVT Assessment and plan: -Basilar pneumonia, suspect gram-negative organism IV Zosyn. Blood cultures pending. -Acute delirium secondary to pneumonia: Better -Acute Bilateral unprovoked pulmonary embolism IV heparin and switched over to eliquis -Possible acute pulmonary infarct secondary to PE -Diabetes mellitus type 2, chronic and oral hypoglycemic. Uncontrolled with hypoglycemia Follow Accu-Cheks. Increase Levemir 24units subcu daily at bedtime. 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 IV fluids. -Essential hypertension Tenormin -Chronic rheumatoid arthritis Chronically on prednisone and methotrexate. stress dose of IV hydrocortisone IV Zosyn, . Increase Levemir 24 units daily at bedtime. Follow labs. Discussed with the patient . Decrease hydrocortisone to 25 mg every 8.
[2022-02-05 12:25] LABS: Glucose,Whole Blood 313 mg/dL (70-110)
--- NOTE | 2022-02-05 15:12 | P.PN ---
Subjective Progress Note Date: 02/05/22 76-year-old male who follows with Dr. Pike, seen in the emergency department, on February 01. He came in with shortness of breath that began earlier this past week. He denied any chest pain. He apparently had nausea, but dry heaves. He also complained of epigastric and right upper quadrant abdominal pain. There is no fever or chills. Again no chest pain or chest discomfort. He was evaluated in the emergency department and was found to have pulmonary embolism. For this reason, he is admitted. He does not apparently has any clear-cut triggers or risk factors for pulmonary embolism. There is no active cancer. The patient is a bit sedentary, but does get up and move around. His been no surgery to the lower extremities, or trauma to the lower extremities. There is no prior history of pulmonary embolism. In addition to the primary doctor, he sees a sider mechanic, metallic this, and foot doctor as well. Also, he sees an filler block inserter remover for his diabetes. White count 6.3, hemoglobin 10, hematocrit 7, and platelet count 223,000. PTT is 66.5. Sodium 133, potassium 3.8, chlorides 104, CO2 21, BUN 21, and creatinine 1.39. Gallbladder ultrasound was negative. Chest x-ray shows cardiomegaly, without an acute process. CT angiogram showed pulmonary emboli involving the right middle lobe, right lower lobe, left upper lobe, without right heart strain. Echocardiogram is pending. Progress note dated 02/03/2022. This is a patient who we saw yesterday in consultation for shortness of breath. The patient was found to have a pulmonary embolism. The patient was on IV heparin, and is currently on Eliquis. In addition, the patient's on O2 at 3 L. He appears to be stable. His shortness of breath is improved. No blood work today. Dopplers of the lower extremities were negative for DVT. On today's evaluation of 02/04/2022, the patient is being seen for a follow-up. Note that the patient is an unprovoked pulmonary embolism with a negative Doppler of the lower extremity. The patient is currently on 3 L about 2 by nasal cannula. The patient was taken off the IV heparin and started on anticoagulation with Eliquis 10 mg by mouth twice a day. At the same time, the patient has developed an acute kidney injury. This could be a combination of drug effect and contrast nephropathy. The patient was taken lisinopril outpatient basis. There could have been also a component of dehydration. The patient is currently receiving normal saline at the rate of 75 mL an hour. Based on the numbers, the patient's creatinine is on the rise and is up to 2.63 and his sodium level is at 134. As same time, the patient has a white cell count 3.3 with a hemoglobin of 9.0 and a platelet count of 199. The patient's blood sugar is also elevated at 336. The patient is known to have diabetes. Currently is on Levemir insulin 20 units in addition to his eyes Coverage. He is known to have rheumatoid arthritis and the patient was taken and bilateral injections on outpatient basis. He is also on methotrexate. On 02/05/2022, the patient is doing well. No specific complaints. Remains on O2 at 3 L. The patient is receiving IV fluids of normal saline at the rate of 75 mL an hour the patient showed improvement in renal function noted the patient an acute kidney injury and the creatinine is currently on the decline. At the same time, the patient is on anticoagulation. The patient was taken off IV heparin and the patient is currently on oral anticoagulation with Eliquis 10 mg by mouth twice a day. The patient has a white cell count of 5.5. The hemoglobin is at 9.1. Also, the patient's sodium level is at 136, BUN is a 42 with a creatinine of 1.93. The patient remains on IV Zosyn for now. The patient is on stress dose hydrocortisone as the patient was chronically taking steroids on outpatient basis. No hemoptysis. No pleurisy. No shortness of breath. Pulse ox is 96% on 3 L O2 and this can be gradually weaned off. Objective - Vital Signs Vital signs: Vital Signs Temp 98 F 02/05/22 09:10 Pulse 74 02/05/22 09:10 Resp 18 02/05/22 09:10 BP 141/69 02/05/22 09:10 Pulse Ox 96 02/05/22 09:10 FiO2 Intake & Output 02/04/22 02/05/22 02/05/22 18:59 06:59 18:59 Intake Total 600 840 Output Total 300 500 350 Balance 300 -500 490 Intake: Oral 600 840 Output: Urine 300 500 350 Other: Voiding Method Urinal Urinal Urinal # Bowel Movements 1 - Exam No acute distress, oriented 3. No respiratory distress. Currently on 3 L. Saturations are 96%. HEENT examination is grossly unremarkable. Neck supple. Full range of motion. No adenopathy thyromegaly or neck vein distention. Cardiovascular examination reveals regular rhythm rate. S1-S2 normal. No S3 or S4. No discernible murmur noted. Heart rate 88 bpm. Lungs reveal clear breath sounds. Breath sounds are equal bilaterally. No adventitious lung sounds including wheezes rhonchi or crackles. Abdomen soft bowel sounds are heard. No masses or tenderness. Extremities are intact. No cyanosis clubbing or edema. Skin is without rash or lesion. Neurologic examination is brief but nonfocal. - Labs CBC & Chem 7: 02/05/22 08:12 02/05/22 08:12 Labs: Abnormal Lab Results - Last 24 Hours (Table) 02/04/22 02/04/22 02/05/22 Range/Units 16:24 20:06 05:59 RBC (4.30-5.90) m/uL Hgb (13.0-17.5) gm/dL Hct (39.0-53.0) % MCV (80.0-100.0) fL MCH (25.0-35.0) pg RDW (11.5-15.5) % Lymphocytes # (Manual) (1.0-4.8) k/uL Macrocytosis Sodium (137-145) mmol/L Chloride (98-107) mmol/L Carbon Dioxide (22-30) mmol/L BUN (9-20) mg/dL Creatinine (0.66-1.25) mg/dL Glucose (74-99) mg/dL POC Glucose (mg/dL) 430 H 347 H 244 H (70-110) mg/dL Calcium (8.4-10.2) mg/dL 02/05/22 02/05/22 02/05/22 Range/Units 08:12 08:12 12:07 RBC 2.59 L (4.30-5.90) m/uL Hgb 9.1 L (13.0-17.5) gm/dL Hct 28.2 L (39.0-53.0) % MCV 108.8 H (80.0-100.0) fL MCH 35.2 H (25.0-35.0) pg RDW 17.3 H (11.5-15.5) % Lymphocytes # (Manual) 0.55 L (1.0-4.8) k/uL Macrocytosis Marked A Sodium 136 L (137-145) mmol/L Chloride 109 H (98-107) mmol/L Carbon Dioxide 17 L (22-30) mmol/L BUN 43 H (9-20) mg/dL Creatinine 1.93 H (0.66-1.25) mg/dL Glucose 234 H (74-99) mg/dL POC Glucose (mg/dL) 313 H (70-110) mg/dL Calcium 7.8 L (8.4-10.2) mg/dL Microbiology - Last 24 Hours (Table) 02/03/22 12:05 Blood Culture - Preliminary Blood No Growth after 48 hours 02/03/22 12:02 Blood Culture - Preliminary Blood No Growth after 48 hours Assessment and Plan Plan: Unprovoked, bilateral pulmonary emboli, without right heart strain.. The patient is currently on oxygen at 3 L per minute nasal cannula. Doppler of the lower extremity was negative and the patient was initially started on IV heparin currently the patient is on anticoagulation with Eliquis. Breathing is comforta ble. No significant shortness of breath. Unprovoked pulmonary embolism, bilateral with negative DVTs. Acute kidney injury, creatinine is stable at 2.6 and a patient is producing adequate urine output for now. Rule out contrast-induced nephropathy. The ultrasound the kidneys showed no evidence of any hydronephrosis. The patient has developed an acute kidney injury. History of diabetes mellitus. The patient was started on Levemir insulin for blood sugar control. In addition to a sliding scale coverage. History of hyperlipidemia. History of essential hypertension. History of rheumatoid arthritis him a maintained on Enbrel injections in addition to methotrexate. Plan Clinically stable Renal function continues to improve Continue anticoagulation with Eliquis, 10 mg by mouth twice a day Continue normal saline at the rate of 75 mL an hour Avoid nephrotoxic agents May discontinue the IV Zosyn patient is currently on a stress dose hydrocortisone as the patient was taking steroids on outpatient basis in combination with methotrexate and Enbrel The stress dose hydrocortisone cream discontinued and the patient may be switched back to prednisone 10 mg by mouth daily We'll continue to follow.
[2022-02-05 17:21] LABS: Glucose,Whole Blood 285 mg/dL (70-110)
[2022-02-05 20:27] LABS: Glucose,Whole Blood 198 mg/dL (70-110)
[2022-02-05] MEDS: GABAPENTIN 300 MG CAP PO SCH (22:13)
[2022-02-05] MEDS: INSULIN DETEMIR (LEVEMIR) 100 UNIT/ML SYR SQ SCH (22:14)
[2022-02-06] MEDS: HYDROCORTISONE SUCCINATE 100 MG/2 ML VIAL IV SCH ×2 (00:01→08:45)
[2022-02-06] MEDS: PIPERACILLIN-TAZOBACTAM 3.375 GM in SODIUM CHLORIDE 0.9% 100 ML IVPB SCH ×4 (00:02→23:10)
[2022-02-06 05:45] LABS: Glucose,Whole Blood 249 mg/dL (70-110)
[2022-02-06] MEDS: SODIUM CHLORIDE 0.9% 1,000 ML IV SCH (06:39)
[2022-02-06] MEDS: PANTOPRAZOLE 40 MG TABLET PO SCH ×2 (06:39→17:23)
[2022-02-06] MEDS: INSULIN ASPART (NovoLOG) 100 UNIT/ML VIAL SQ SCH ×4 (06:39→21:03)
[2022-02-06] MEDS: GLIMEPIRIDE 2 MG TAB PO SCH (06:39)
[2022-02-06] MEDS: CHOLECALCIFEROL 25 MCG (1000 IU) TABLET PO SCH (08:45)
[2022-02-06] MEDS: atenoloL 50 MG TAB PO SCH ×2 (08:45→21:02)
[2022-02-06] MEDS: ASPIRIN 81 MG PO SCH (08:45)
[2022-02-06] MEDS: CALCIUM CARBONATE 500 MG CHEWABLE PO SCH (08:45)
[2022-02-06] MEDS: FOLIC ACID 1 MG TAB PO SCH (08:45)
[2022-02-06] MEDS: ATORVASTATIN 20 MG TAB PO SCH (08:45)
[2022-02-06] MEDS: APIXABAN 5 MG TAB PO SCH ×2 (08:45→21:02)
[2022-02-06 10:32] LABS: Calcium 7.7 mg/dL (8.4-10.2)
[2022-02-06 11:58] LABS: Glucose,Whole Blood 198 mg/dL (70-110)
[2022-02-06] MEDS: SODIUM BICARBONATE TAB 650 MG TAB PO SCH ×3 (12:24→21:02)
--- NOTE | 2022-02-06 13:48 | P.PN ---
Progress Note - Text Progress Note Date: 02/06/22 Hospital course 76-year-old man with medical history of hypertension, hyperlipidemia, diabetes, rheumatoid arthritis on chronic steroids presented for abdominal, chest pain. Patient says that for the last 1 week he's noticed that he has had difficulty eating, in which she had nausea and vomiting directly after trying to take in anything my mouth. Consequently, he has not taken any of his medications this week. Furthermore, he noticed that his stools have become soft and black and are associated with a burning type pain in his stomach. He also reports to me that he's had associated difficulty breathing with ambulation. He denies fevers, chills, palpitations, syncope, presyncope, constipation, dysuria, dyschezia, numbness/weakness of extremities. In the emergency room, patient is afebrile, 168/72, heart rate 110, 96% on room air. CBC shows mild anemia down to 11.4, MCV of 103.9. Chemistries show a low sodium at 133, CO2 of 15. Liver function tests show total bilirubin of 1.9, ALT of 53, total protein of 6.2, albumin of 3.4. Amylase was 135. Lipase was 504. D-dimer was elevated at 2.12. Covid was negative. Patient underwent gallbladder ultrasound which showed no evidence for an acute abdominal process. Chest x-ray demonstrated cardiomegaly but no acute pulmonary process. Chest CTA was significant for pulmonary emboli involving the right middle, right lower, left upper lobes, with no evidence of right heart strain as well as peripheral ground last opacities that could represent early pulmonary infarct. EKG showed tachycardia with an ectopic atrial pacemaker, right bundle brandie block, left anterior fascicular block, LVH. Admitted with unprovoked pulmonary embolism. Started IV heparin. February 03: I assumed care of the patient from [facility] today. Patient spiking fevers. Chills. Congested chest. Family at the bedside. Started on IV Zosyn. X-ray showing infiltrates. Started on eliquis. Decreased appetite. Tired. Was slightly delirious/confused earlier. Did sit up in a chair earlier. February 04: Up in a recliner. Respiratory symptoms better. Worsening renal function. DC vancomycin. Start saline 75 mL an hour. Eating some. Discussed with the patient and . Cutback dose of Neurontin in the setting of acute kidney injury. Also hold lisinopril. Because of renal function and lower blood pressure. February 05: Up in a recliner. Breathing better. Labs from this morning are pending. IV fluids 75 mL an hour. No pain. Discussed with the patient. Continue Zosyn. February 06: Doing much better. Not using incentive spirometry. Breathing better. Reinforced incentive spirometry. Increase activity. Creatinine coming down. Continue gentle hydration. . the patient and family. Hopefully discharge tomorrow. Active Medications Acetaminophen (Acetaminophen Tab 325 Mg Tab) 650 mg PO Q6HR PRN PRN Reason: Fever and/ or Pain Last Admin: 02/03/22 09:09 Dose: 650 mg Apixaban (Apixaban 5 Mg Tab) 10 mg PO BID [facility]; Protocol Stop: 02/10/22 09:01 Last Admin: 02/06/22 08:45 Dose: 10 mg Aspirin (Aspirin 81 Mg) 81 mg PO DAILY [facility] Last Admin: 02/06/22 08:45 Dose: 81 mg Atenolol (Atenolol 50 Mg Tab) 50 mg PO BID [facility] Last Admin: 02/06/22 08:45 Dose: 50 mg Atorvastatin Calcium (Atorvastatin 20 Mg Tab) 20 mg PO DAILY [facility] Last Admin: 02/06/22 08:45 Dose: 20 mg Calcium Carbonate/Glycine (Calcium Carbonate 500 Mg Chewable) 500 mg PO DAILY [facility] Last Admin: 02/06/22 08:45 Dose: 500 mg Cholecalciferol (Cholecalciferol 25 Mcg (1000 Iu) Tablet) 25 mcg PO DAILY [facility] Last Admin: 02/06/22 08:45 Dose: 25 mcg Clonidine (Clonidine Hcl 0.2 Mg Tab) 0.2 mg PO TID PRN PRN Reason: Blood Pressure - High Last Admin: 02/01/22 20:09 Dose: 0.2 mg Folic Acid (Folic Acid 1 Mg Tab) 1 mg PO DAILY [facility] Last Admin: 02/06/22 08:45 Dose: 1 mg Gabapentin (Gabapentin 300 Mg Cap) 600 mg PO HS [facility] Last Admin: 02/05/22 22:13 Dose: 600 mg Glimepiride (Glimepiride 2 Mg Tab) 2 mg PO AC-BRKFST [facility] Last Admin: 02/06/22 06:39 Dose: 2 mg Hydrocortisone Sodium Succinate (Hydrocortisone Succinate 100 Mg/2 Ml Vial) 25 mg IV Q8HR [facility] Last Admin: 02/06/22 08:45 Dose: 25 mg Piperacillin Sod/Tazobactam (Sod 3.375 gm/ Sodium Chloride) 100 mls @ 25 mls/hr IVPB Q8HR [facility]; Protocol Last Admin: 02/06/22 08:44 Dose: 25 mls/hr Sodium Chloride (Saline 0.9%) 1,000 mls @ 75 mls/hr IV .[id number] [facility] Last Admin: 02/06/22 06:39 Dose: 75 mls/hr Insulin Aspart (Insulin Aspart (Novolog) 100 Unit/Ml Vial) 0 unit SQ ACHS [facility]; Protocol Last Admin: 02/06/22 12:24 Dose: 2 unit Insulin Detemir (Insulin Detemir (Levemir) 100 Unit/Ml Syr) 24 unit SQ HS [facility] Last Admin: 02/05/22 22:14 Dose: 24 unit Miscellaneous Information (Potassium Replacement Protocol 1 Each Misc) 1 each MISCELLANE DAILY PRN; Protocol PRN Reason: Per Protocol Pantoprazole Sodium (Pantoprazole 40 Mg Tablet) 40 mg PO AC-BID [facility] Last Admin: 02/06/22 06:39 Dose: 40 mg Sodium Bicarbonate (Sodium Bicarbonate Tab 650 Mg Tab) 650 mg PO TID [facility] Last Admin: 02/06/22 12:24 Dose: 650 mg On examination: VITAL SIGNS: 98.5, 74, 16, 164/87, 95% room air GENERAL APPEARANCE: Up in a bed awake , cheerful HEENT: Normal external appearance of nose and ear. Oral cavity normal EYES: Pupils equal. Conjunctiva normal. NECK: JVD not raised. Mass not palpable. RESPIRATORY: Respiratory effort increased. Some basal crackles. CARDIOVASCULAR: First and second sounds normal. No edema. ABDOMEN: Soft. Liver and spleen not palpable. No tenderness. No mass palpable. PSYCHIATRY: Answering questions appropriately INVESTIGATIONS, reviewed in the clinical context: February 06: Potassium 4 BUN 40 creatinine 1.57 bicarbonate February 05: White count 5.5 hemoglobin 9.1 platelets 232 potassium 4. 43 creatinine 1.93 Ultrasound: Right kidney cortical thinning and small in size. UA protein 1+ February 04: White count 3.3 hemoglobin 9 platelets 19 potassium 4.4. 39 creatinine 2.63 pro-calcitonin 0.43 Chest x-ray film personally reviewed by me-[February 03]: Basilar infiltrate left greater than right CT brain: Chronic changes White count 8.4 hemoglobin 10.6 platelets 296. Potassium 3.8 BUN 21 creatinine 1.39 Iron 34 transfusion 129 ferritin 1364 wondering [id number] 819.9 to usage 1.1 Computed tomography scan chest: Pulmonary emboli involving the right middle and right lower and left upper lobe segmental pulmonary arteries. Peripheral ground glass opacities could represent early pulmonary infarct. Hepatic cirrhosis. Colonic diverticulosis. 2-D echocardiogram: EF 5055%. Right ventricle normal. Doppler ultrasound: Negative for DVT Assessment and plan: -Basilar pneumonia, suspect gram-negative organism: Better IV Zosyn. Blood cultures pending. Changed to Omnicef -Acute delirium secondary to pneumonia: Better -Acute Bilateral unprovoked pulmonary embolism IV heparin and switched over to eliquis -Possible acute pulmonary infarct secondary to PE -Diabetes mellitus type 2, chronic and oral hypoglycemic. Uncontrolled with hypoglycemia Follow Accu-Cheks. Increase Levemir 28 units subcu daily at bedtime. 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 IV fluids. -Essential hypertension Tenormin -Chronic rheumatoid arthritis Chronically on prednisone and methotrexate. stress dose of IV hydrocortisone- changed to by mouth prednisone IV Zosyn change or to Omnicef., . Increase Levemir 28 units daily at bedtime. Follow labs. Discussed with the patient . DC hydrocortisone. Prednisone 40 mg. Change IV fluids to half saline. Add sodium bicarbonate. Hopefully discharge tomorrow.
--- NOTE | 2022-02-06 14:30 | P.PN ---
Subjective Progress Note Date: 02/06/22 76-year-old male who follows with Dr. Pike, seen in the emergency department, on February 01. He came in with shortness of breath that began earlier this past week. He denied any chest pain. He apparently had nausea, but dry heaves. He also complained of epigastric and right upper quadrant abdominal pain. There is no fever or chills. Again no chest pain or chest discomfort. He was evaluated in the emergency department and was found to have pulmonary embolism. For this reason, he is admitted. He does not apparently has any clear-cut triggers or risk factors for pulmonary embolism. There is no active cancer. The patient is a bit sedentary, but does get up and move around. His been no surgery to the lower extremities, or trauma to the lower extremities. There is no prior history of pulmonary embolism. In addition to the primary doctor, he sees a multimedia instructional designer, metallic this, and foot doctor as well. Also, he sees an bolt machine operator for his diabetes. White count 6.3, hemoglobin 10, hematocrit 7, and platelet count 223,000. PTT is 66.5. Sodium 133, potassium 3.8, chlorides 104, CO2 21, BUN 21, and creatinine 1.39. Gallbladder ultrasound was negative. Chest x-ray shows cardiomegaly, without an acute process. CT angiogram showed pulmonary emboli involving the right middle lobe, right lower lobe, left upper lobe, without right heart strain. Echocardiogram is pending. Progress note dated 02/03/2022. This is a patient who we saw yesterday in consultation for shortness of breath. The patient was found to have a pulmonary embolism. The patient was on IV heparin, and is currently on Eliquis. In addition, the patient's on O2 at 3 L. He appears to be stable. His shortness of breath is improved. No blood work today. Dopplers of the lower extremities were negative for DVT. On today's evaluation of 02/04/2022, the patient is being seen for a follow-up. Note that the patient is an unprovoked pulmonary embolism with a negative Doppler of the lower extremity. The patient is currently on 3 L about 2 by nasal cannula. The patient was taken off the IV heparin and started on anticoagulation with Eliquis 10 mg by mouth twice a day. At the same time, the patient has developed an acute kidney injury. This could be a combination of drug effect and contrast nephropathy. The patient was taken lisinopril outpatient basis. There could have been also a component of dehydration. The patient is currently receiving normal saline at the rate of 75 mL an hour. Based on the numbers, the patient's creatinine is on the rise and is up to 2.63 and his sodium level is at 134. As same time, the patient has a white cell count 3.3 with a hemoglobin of 9.0 and a platelet count of 199. The patient's blood sugar is also elevated at 336. The patient is known to have diabetes. Currently is on Levemir insulin 20 units in addition to his eyes Coverage. He is known to have rheumatoid arthritis and the patient was taken and bilateral injections on outpatient basis. He is also on methotrexate. On 02/05/2022, the patient is doing well. No specific complaints. Remains on O2 at 3 L. The patient is receiving IV fluids of normal saline at the rate of 75 mL an hour the patient showed improvement in renal function noted the patient an acute kidney injury and the creatinine is currently on the decline. At the same time, the patient is on anticoagulation. The patient was taken off IV heparin and the patient is currently on oral anticoagulation with Eliquis 10 mg by mouth twice a day. The patient has a white cell count of 5.5. The hemoglobin is at 9.1. Also, the patient's sodium level is at 136, BUN is a 42 with a creatinine of 1.93. The patient remains on IV Zosyn for now. The patient is on stress dose hydrocortisone as the patient was chronically taking steroids on outpatient basis. No hemoptysis. No pleurisy. No shortness of breath. Pulse ox is 96% on 3 L O2 and this can be gradually weaned off. 02/06/2022, seeing the patient for a follow-up. The patient is doing well. No specific complaints and the patient is currently on room air oxygen. There is on lisinopril and the patient's renal function and the creatinine is down to 1. 57 with a BUN of 40. Serum bicarbs at 17. The patient continues to be on IV fluids normal saline at the rate of 75 mL an hour. Otherwise, no other significant events. This morning, the patient on room air oxygen. Patient remains on aspirin. The patient is on anticoagulation with Eliquis 10 mg by mouth twice a day regarding the pulmonary embolism. Remains on Levemir insulin 24 units daily and a sliding scale coverage. She is also on Amaryl. Objective - Vital Signs Vital signs: Vital Signs Temp 98.5 F 02/06/22 12:24 Pulse 74 02/06/22 12:24 Resp 16 02/06/22 12:24 BP 164/87 02/06/22 12:24 Pulse Ox 95 02/06/22 12:24 FiO2 Intake & Output 02/05/22 02/06/22 02/06/22 18:59 06:59 18:59 Intake Total 2868 400 240 Output Total 550 460 600 Balance 2318 -60 -360 Weight 62 kg Intake: Intake, IV Titration 950 400 Amount Piperacillin-Tazobactam 3 200 100 .375 gm In Sodium Chloride 0.9% 100 ml @ 25 mls/hr IVPB Q8HR DAVID Rx# :[id number] Sodium Chloride 0.9% 1, 750 300 000 ml @ 75 mls/hr IV . [id number] DAVID Rx#:[id number] Oral 1918 240 Output: Urine 550 460 600 Other: Voiding Method Urinal Urinal Urinal - Exam No acute distress, oriented 3. No respiratory distress. Currently on room air oxygen with a pulse ox of 95% Head exam was generally normal. There was no scleral icterus or corneal arcus. Mucous membranes were moist Neck supple. Full range of motion. No adenopathy thyromegaly or neck vein distention. Cardiovascular examination reveals regular rhythm rate. S1-S2 normal. No S3 or S4. No discernible murmur noted. Heart rate 88 bpm. Lungs reveal clear breath sounds. Breath sounds are equal bilaterally. No adventitious lung sounds including wheezes rhonchi or crackles. Abdomen soft bowel sounds are heard. No masses or tenderness. Extremities are intact. No cyanosis clubbing or edema. Skin is without rash or lesion. Neurologic examination is brief but nonfocal. - Labs CBC & Chem 7: 02/05/22 08:12 02/06/22 09:06 Labs: Abnormal Lab Results - Last 24 Hours (Table) 02/05/22 02/05/22 02/06/22 Range/Units 16:51 20:25 05:44 Chloride (98-107) mmol/L Carbon Dioxide (22-30) mmol/L BUN (9-20) mg/dL Creatinine (0.66-1.25) mg/dL Glucose (74-99) mg/dL POC Glucose (mg/dL) 285 H 198 H 249 H (70-110) mg/dL Calcium (8.4-10.2) mg/dL 02/06/22 02/06/22 Range/Units 09:06 11:57 Chloride 110 H (98-107) mmol/L Carbon Dioxide 17 L (22-30) mmol/L BUN 40 H (9-20) mg/dL Creatinine 1.57 H (0.66-1.25) mg/dL Glucose 204 H (74-99) mg/dL POC Glucose (mg/dL) 198 H (70-110) mg/dL Calcium 7.7 L (8.4-10.2) mg/dL Microbiology - Last 24 Hours (Table) 02/03/22 12:05 Blood Culture - Preliminary Blood No Growth after 72 hours 02/03/22 12:02 Blood Culture - Preliminary Blood No Growth after 72 hours 02/05/22 17:16 Nasal Screen MRSA/MSSA - Preliminary Nasal Swab Assessment and Plan Plan: Unprovoked, bilateral pulmonary emboli, without right heart strain.. The patient is currently on oxygen at 3 L per minute nasal cannula. Doppler of the lower extremity was negative and the patient was initially started on IV heparin currently the patient is on anticoagulation with Eliquis. Breathing is comfortable. No significant shortness of breath. Unprovoked pulmonary embolism, bilateral with negative DVTs. Acute kidney injury, creatinine is improving is currently down to 1.47 History of diabetes mellitus. The patient was started on Levemir insulin for blood sugar control. In addition to a sliding scale coverage. History of hyperlipidemia. History of essential hypertension. History of rheumatoid arthritis him a maintained on Enbrel injections in ad dition to methotrexate. The patient is currently on prednisone Plan Clinically stable Renal function continues to improve Continue anticoagulation with Eliquis, 10 mg by mouth twice a day Continue normal saline at the rate of 75 mL an hour, continuing continues to improve Avoid nephrotoxic agents May discontinue the IV Zosyn Management of steroids per medicine as the patient was placed on 4 mg of prednisone, the patient was taking steroids on outpatient basis in combination with methotrexate and Enbrel on outpatient basis We'll continue to follow.
[2022-02-06 16:20] LABS: Glucose,Whole Blood 182 mg/dL (70-110)
[2022-02-06] MEDS: predniSONE 20 MG TAB PO SCH (17:23)
[2022-02-06] MEDS: SODIUM CHLORIDE 0.45% 1,000 ML IV SCH (17:25)
[2022-02-06 20:25] LABS: Glucose,Whole Blood 140 mg/dL (70-110)
[2022-02-06] MEDS: GABAPENTIN 300 MG CAP PO SCH (21:02)
[2022-02-06] MEDS: INSULIN DETEMIR (LEVEMIR) 100 UNIT/ML SYR SQ SCH (21:03)
[2022-02-07 06:05] LABS: Glucose,Whole Blood 191 mg/dL (70-110)
[2022-02-07] MEDS: SODIUM CHLORIDE 0.45% 1,000 ML IV SCH (06:38)
[2022-02-07] MEDS: INSULIN ASPART (NovoLOG) 100 UNIT/ML VIAL SQ SCH ×2 (06:39→12:29)
[2022-02-07] MEDS: GLIMEPIRIDE 2 MG TAB PO SCH (06:39)
[2022-02-07] MEDS: PANTOPRAZOLE 40 MG TABLET PO SCH (06:39)
[2022-02-07] MEDS: PIPERACILLIN-TAZOBACTAM 3.375 GM in SODIUM CHLORIDE 0.9% 100 ML IVPB SCH (08:29)
[2022-02-07] MEDS: ASPIRIN 81 MG PO SCH (08:30)
[2022-02-07] MEDS: atenoloL 50 MG TAB PO SCH (08:30)
[2022-02-07] MEDS: APIXABAN 5 MG TAB PO SCH (08:30)
[2022-02-07] MEDS: CHOLECALCIFEROL 25 MCG (1000 IU) TABLET PO SCH (08:30)
[2022-02-07] MEDS: SODIUM BICARBONATE TAB 650 MG TAB PO SCH (08:30)
[2022-02-07] MEDS: ATORVASTATIN 20 MG TAB PO SCH (08:30)
[2022-02-07] MEDS: CALCIUM CARBONATE 500 MG CHEWABLE PO SCH (08:30)
[2022-02-07] MEDS: predniSONE 20 MG TAB PO SCH (08:30)
[2022-02-07] MEDS: FOLIC ACID 1 MG TAB PO SCH (08:31)
[2022-02-07 09:25] LABS: Calcium 8.2 mg/dL (8.4-10.2); Potassium 4.1 mmol/L (3.5-5.1)
[2022-02-07 11:38] LABS: Glucose,Whole Blood 181 mg/dL (70-110)
[2022-02-07 12:38] VITALS: BP 145/75; PULSE 70; RESP 18; TEMP 98
--- NOTE | 2022-02-07 20:49 | P.DS ---
Providers Date of admission: 02/01/22 15:39 Expected date of discharge: 02/07/22 Attending physician: Aries Vincent Consults: 02/01/22 15:20 Consult Physician Urgent Consulting Provider: Pernell Bell Consult Reason/Comments: Pulmonary embolism Do you want consulting provider notified?: Yes Primary care physician: [facility] Course: Hospital course 76-year-old man with medical history of hypertension, hyperlipidemia, diabetes, rheumatoid arthritis on chronic steroids presented for abdominal, chest pain. Patient says that for the last 1 week he's noticed that he has had difficulty eating, in which she had nausea and vomiting directly after trying to take in anything my mouth. Consequently, he has not taken any of his medications this week. Furthermore, he noticed that his stools have become soft and black and are associated with a burning type pain in his stomach. He also reports to me that he's had associated difficulty breathing with ambulation. He denies fevers, chills, palpitations, syncope, presyncope, constipation, dysuria, dyschezia, numbness/weakness of extremities. In the emergency room, patient is afebrile, 168/72, heart rate 110, 96% on room air. CBC shows mild anemia down to 11.4, MCV of 103.9. Chemistries show a low sodium at 133, CO2 of 15. Liver function tests show total bilirubin of 1.9, ALT of 53, total protein of 6.2, albumin of 3.4. Amylase was 135. Lipase was 504. D-dimer was elevated at 2.12. Covid was negative. Patient underwent gallbladder ultrasound which showed no evidence for an acute abdominal process. Chest x-ray demonstrated cardiomegaly but no acute pulmonary process. Chest CTA was significant for pulmonary emboli involving the right middle, right lower, left upper lobes, with no evidence of right heart strain as well as peripheral ground last opacities that could represent early pulmonary infarct. EKG showed tachycardia with an ectopic atrial pacemaker, right bundle brandie block, left anterior fascicular block, LVH. Admitted with unprovoked pulmonary embolism. Started IV heparin. February 03: I assumed care of the patient from sound physicians today. Patient spiking fevers. Chills. Congested chest. Family at the bedside. Started on IV Zosyn. X-ray showing infiltrates. Started on eliquis. Decreased appetite. Tired. Was slightly delirious/confused earlier. Did sit up in a chair earlier. February 04: Up in a recliner. Respiratory symptoms better. Worsening renal function. DC vancomycin. Start saline 75 mL an hour. Eating some. Discussed with the patient and . Cutback dose of Neurontin in the setting of acute kidney injury. Also hold lisinopril. Because of renal function and lower blood pressure. February 05: Up in a recliner. Breathing better. Labs from this morning are pending. IV fluids 75 mL an hour. No pain. Discussed with the patient. Continue Zosyn. February 06: Doing much better. Not using incentive spirometry. Breathing better. Reinforced incentive spirometry. Increase activity. Creatinine coming down. Continue gentle hydration. . the patient and family. Hopefully discharge tomorrow. February 07: Doing well. Creatinine down to 1.35. Breathing stable. Told to use incentive spirometry. Care was discussed with the patient and . 3 more days of Augmentin. To take 2 days of 20 mg of prednisone and then go down to home dose. Discussion and discharge planning more than 35 minutes On examination: VITAL SIGNS: 98, 70, 18, 145% 75, 97% room air GENERAL APPEARANCE: Up in a bed awake , cheerful HEENT: Normal external appearance of nose and ear. Oral cavity normal EYES: Pupils equal. Conjunctiva normal. NECK: JVD not raised. Mass not palpable. RESPIRATORY: Respiratory effort normal. Some basal crackles. CARDIOVASCULAR: First and second sounds normal. No edema. ABDOMEN: Soft. Liver and spleen not palpable. No tenderness. No mass palpable. PSYCHIATRY: Answering questions appropriately INVESTIGATIONS, reviewed in the clinical context: February 07: Potassium 4.1 BUN 30 creatinine 1.35 Ultrasound: Right kidney cortical thinning and small in size. UA protein 1+ February 04: White count 3.3 hemoglobin 9 platelets 19 potassium 4.4. 39 creatinine 2.63 pro-calcitonin 0.43 Chest x-ray film personally reviewed by me-[February 03]: Basilar infiltrate left greater than right CT brain: Chronic changes White count 8.4 hemoglobin 10.6 platelets 296. Potassium 3.8 BUN 21 creatinine 1.39 Iron 34 transfusion 129 ferritin 1364 wondering B12 75055 819.9 to usage 1.1 Computed tomography scan chest: Pulmonary emboli involving the right middle and right lower and left upper lobe segmental pulmonary arteries. Peripheral ground glass opacities could represent early pulmonary infarct. Hepatic cirrhosis. Colonic diverticulosis. 2-D echocardiogram: EF 5055%. Right ventricle normal. Doppler ultrasound: Negative for DVT Assessment and plan: -Basilar pneumonia, suspect gram-negative organism: Better IV Zosyn. Blood cultures pending. Complete 3 days of Augmentin -Acute delirium secondary to pneumonia: Better -Acute Bilateral unprovoked pulmonary embolism IV heparin and switched over to eliquis -Possible acute pulmonary infarct secondary to PE -Diabetes mellitus type 2, chronic and oral hypoglycemic. Uncontrolled with hyperglycemia Follow Accu-Cheks. Increase Levemir 28 units subcu daily at bedtime. 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 stress dose of IV hydrocortisone- changed to by mouth prednisone Disposition: Home Labs: CBC BMP: 1 week Plan - Discharge Summary Discharge Rx Participant: No New Discharge Prescriptions: New Amoxic-Pot Clav 875-125Mg [Augmentin 875-125] 1 tab PO Q12HR #6 tab Pantoprazole [Protonix] 40 mg PO AC-BID #60 tab Sodium Bicarbonate Tab 650 mg PO BID #30 tab Apixaban [Eliquis Starter Pack (for VTE)] 5 - 10 mg PO DIRECTED 30 Days #1 each Continue Etanercept [Enbrel] 50 mg SQ WE Atorvastatin [Lipitor] 20 mg PO DAILY atenoloL [Tenormin] 50 mg PO BID metFORMIN HCL [Glucophage] 500 mg PO BID Aspirin [Adult Low Dose Aspirin EC] 81 mg PO DAILY Glimepiride [Amaryl] 2 mg PO W/BRKFST predniSONE 10 mg PO DAILY Folic Acid 1 mg PO DAILY metHOTREXate sodium [Methotrexate] 25 mg PO HEIN Empagliflozin [Jardiance] 25 mg PO DAILY lisinopriL 30 mg PO DAILY Cholecalciferol [Vitamin D3 (25 Mcg = 1000 Iu)] 25 mcg PO DAILY Calcium Carbonate [Calcium] 600 mg PO DAILY Changed Gabapentin 600 mg PO HS #0 Discharge Medication List Aspirin [Adult Low Dose Aspirin EC] 81 mg PO DAILY 05/19/17 [History] Atorvastatin [Lipitor] 20 mg PO DAILY 05/19/17 [History] Etanercept [Enbrel] 50 mg SQ WE 05/19/17 [History] atenoloL [Tenormin] 50 mg PO BID 05/19/17 [History] metFORMIN HCL [Glucophage] 500 mg PO BID 05/19/17 [History] Calcium Carbonate [Calcium] 600 mg PO DAILY 02/01/22 [History] Cholecalciferol [Vitamin D3 (25 Mcg = 1000 Iu)] 25 mcg PO DAILY 02/01/22 [History] Empagliflozin [Jardiance] 25 mg PO DAILY 02/01/22 [History] Folic Acid 1 mg PO DAILY 02/01/22 [History] Glimepiride [Amaryl] 2 mg PO W/BRKFST 02/01/22 [History] lisinopriL 30 mg PO DAILY 02/01/22 [History] metHOTREXate sodium [Methotrexate] 25 mg PO HEIN 02/01/22 [History] predniSONE 10 mg PO DAILY 02/01/22 [History] Amoxic-Pot Clav 875-125Mg [Augmentin 875-125] 1 tab PO Q12HR #6 tab 02/07/22 [Rx] Apixaban [Eliquis Starter Pack (for VTE)] 5 - 10 mg PO DIRECTED 30 Days #1 each 02/07/22 [Rx] Gabapentin 600 mg PO HS #0 02/07/22 [Rx] Pantoprazole [Protonix] 40 mg PO AC-BID #60 tab 02/07/22 [Rx] Sodium Bicarbonate Tab 650 mg PO BID #30 tab 02/07/22 [Rx] Follow up Appointment(s)/Referral(s): Karl Pike DO [Primary Care Provider] - 02/13/22 2:00 pm Pernell Bell DO [Doctor of Osteopathic Medicine] - 03/27/22 9:30 am Cristian Aguillon MD [STAFF PHYSICIAN] - 02/14/22 3:00 pm Patient Instructions/Handouts: Pulmonary Embolism (DC) Activity/Diet/Wound Care/Special Instructions: repeat cbc/bmp at Dr Pike office. Dr Colby office will call you if they have a cancellation sooner. Discharge Disposition: HOME SELF-CARE
== END 2022-02-07 12:44 | disposition home or self-care (01) | DRG 177 ==
LOC: EC 09:32 → 3SCARD 14:53 → OBSVTOIN 15:39 → 3SCARD 16:45
PROVIDERS: ADMIT Hospitalist; ATTEND Hospitalist
DX: J15.6 Pneumonia due to other Gram-negative bacteria (principal); G93.41 Metabolic encephalopathy; I26.99 Other pulmonary embolism without acute cor pulmonale; N17.8 Other acute kidney failure; F05 Delirium due to known physiological condition; I45.2 Bifascicular block; E11.649 Type 2 diabetes mellitus with hypoglycemia without coma; E11.22 Type 2 diabetes mellitus with diabetic chronic kidney disease; E11.42 Type 2 diabetes mellitus with diabetic polyneuropathy; I13.10 Hypertensive heart and chronic kidney disease without heart failure, with stage 1 through stage 4 chronic kidney disease, or unspecified chronic kidney disease; D53.9 Nutritional anemia, unspecified; M06.9 Rheumatoid arthritis, unspecified; I71.9 Aortic aneurysm of unspecified site, without rupture; E11.65 Type 2 diabetes mellitus with hyperglycemia; N18.30 Chronic kidney disease, stage 3 unspecified; E78.5 Hyperlipidemia, unspecified; N14.1 Nephropathy induced by other drugs, medicaments and biological substances; T50.8X5A Adverse effect of diagnostic agents, initial encounter; R00.0 Tachycardia, unspecified; R77.8 Other specified abnormalities of plasma proteins; E86.0 Dehydration; R32 Unspecified urinary incontinence; R63.30 Feeding difficulties, unspecified; R19.7 Diarrhea, unspecified; R09.02 Hypoxemia; M79.604 Pain in right leg; M79.605 Pain in left leg; Z20.822 Contact with and (suspected) exposure to COVID-19; Z79.82 Long term (current) use of aspirin; Z79.4 Long term (current) use of insulin; Z79.899 Other long term (current) drug therapy; Z79.84 Long term (current) use of oral hypoglycemic drugs; Z87.891 Personal history of nicotine dependence; Z79.52 Long term (current) use of systemic steroids; Z98.890 Other specified postprocedural states; Z80.8 Family history of malignant neoplasm of other organs or systems; Z80.0 Family history of malignant neoplasm of digestive organs
CPT/HCPCS: 36415; 70450; 71045; 71046; 71275; 76705; 76770; 80048; 80053; 81001; 82150; 82607; 82728; 82746; 83540; 83550; 83605; 83690; 83735; 83880; 84145; 84443; 84484; 85025; 85027; 85045; 85379; 85730; 87040; 87070; 87635; 93005; 93306; 93970; 94760; 96365; 96366; 99285

== ENCOUNTER 2022-03-12 15:50 | Emergency (ER) | payer MEDICARE ==
[2022-03-12 16:39] VITALS: TEMP 98.7
[2022-03-12 21:18] VITALS: BP 155/71; PULSE 93; RESP 18
[2022-03-12] MEDS ORDERED: CEPHALEXIN 500 MG CAP PO STA (21:19)
[2022-03-12] MEDS ORDERED: BACITRACIN OINT 1 EACH PACKET TOPICAL ONE (21:20)
--- NOTE | 2022-03-12 21:28 | ED ---
General Adult HPI - General Chief complaint: Burn/Smoke Inhalation Stated complaint: Burn on L foot Time Seen by Provider: 03/12/22 21:16 Source: patient, RN notes reviewed, old records reviewed Mode of arrival: ambulatory Limitations: no limitations - History of Present Illness Initial comments: 77-year-old male presenting for evaluation of burn on the top of the left foot which occurred 5 days prior to arrival. Patient had been stewing tomatoes and accidentally dropped boiling water onto the surface of his left foot. He was putting antibiotic ointment on it but was sent to emergency department for evaluation by primary care physician. Patient has no pain secondary to neuropathy. - Related Data Home Medications Medication Instructions Recorded Confirmed Aspirin [Adult Low Dose Aspirin EC] 81 mg PO DAILY 05/19/17 02/01/22 Atorvastatin [Lipitor] 20 mg PO DAILY 05/19/17 02/01/22 Etanercept [Enbrel] 50 mg SQ WE 05/19/17 02/01/22 atenoloL [Tenormin] 50 mg PO BID 05/19/17 02/01/22 metFORMIN HCL [Glucophage] 500 mg PO BID 05/19/17 02/01/22 Calcium Carbonate [Calcium] 600 mg PO DAILY 02/01/22 02/01/22 Cholecalciferol [Vitamin D3 (25 25 mcg PO DAILY 02/01/22 02/01/22 Mcg = 1000 Iu)] Empagliflozin [Jardiance] 25 mg PO DAILY 02/01/22 02/01/22 Folic Acid 1 mg PO DAILY 02/01/22 02/01/22 Glimepiride [Amaryl] 2 mg PO W/BRKFST 02/01/22 02/01/22 lisinopriL 30 mg PO DAILY 02/01/22 02/01/22 metHOTREXate sodium [Methotrexate] 25 mg PO HEIN 02/01/22 02/01/22 predniSONE 10 mg PO DAILY 02/01/22 02/01/22 Previous Rx's Medication Instructions Recorded Amoxic-Pot Clav 875-125Mg 1 tab PO Q12HR #6 tab 02/07/22 [Augmentin 875-125] Apixaban [Eliquis Starter Pack 5 - 10 mg PO DIRECTED 30 Days 02/07/22 (for VTE)] #1 each Gabapentin 600 mg PO HS #0 02/07/22 Pantoprazole [Protonix] 40 mg PO AC-BID #60 tab 02/07/22 Sodium Bicarbonate Tab 650 mg PO BID #30 tab 02/07/22 Cephalexin [Keflex] 500 mg PO QID #40 cap 03/12/22 SILVER sulfADIAZINE CREAM 1 applic TOPICAL DAILY #50 gram 03/12/22 [Silvadene Cream] Allergies Allergy/AdvReac Type Severity Reaction Status Date / Time No Known Allergies Allergy Verified 03/12/22 16:39 Review of Systems ROS Statement: Those systems with pertinent positive or pertinent negative responses have been documented in the HPI. ROS Other: All systems not noted in ROS Statement are negative. Past Medical History Past Medical History: Diabetes Mellitus, Hyperlipidemia, Hypertension, Rheumatoid Arthritis (RA) Additional Past Medical History / Comment(s): aortic aneurysm History of Any Multi-Drug Resistant Organisms: None Reported Past Surgical History: Hernia Repair Additional Past Surgical History / Comment(s): hemorrhoidectomy, surgeries for sebaceous cysts Past Anesthesia/Blood Transfusion Reactions: Motion Sickness Past Psychological History: No Psychological Hx Reported Smoking Status: Never smoker Past Alcohol Use History: None Reported Past Drug Use History: None Reported - Past Family History Son(s) Family Medical History: Cancer Additional Family Medical History / Comment(s): brain cancer Brother(s) Family Medical History: Cancer Additional Family Medical History / Comment(s): colon cancer Sister(s) Family Medical History: Cancer General Exam Limitations: no limitations General appearance: alert, in no apparent distress Head exam: Present: atraumatic, normocephalic Eye exam: Present: normal appearance ENT exam: Present: normal exam Neck exam: Present: normal inspection Respiratory exam: Present: normal lung sounds bilaterally. Absent: respiratory distress, wheezes Cardiovascular Exam: Present: regular rate, normal rhythm GI/Abdominal exam: Present: soft. Absent: distended, tenderness Extremities exam: Present: other (Second-degree burn to the dorsal surface of the left foot representing 1% total body surface area) Course Vital Signs 03/12/22 03/12/22 16:36 21:17 Temperature 98.7 F Pulse Rate 81 93 Respiratory 20 18 Rate Blood Pressure 146/70 155/71 O2 Sat by Pulse 100 98 Oximetry Medical Decision Making - Medical Decision Making 77-year-old male with 5 day old burn to the dorsal surface of the left foot representing 1% body surface area this is not circumferential. The patient has no pain but does have history of neuropathy. Patient is treated with bacitracin ointment and will continue Silvadene at home. In addition is prescribed some oral antibiotics. I suspect this is a second degree but patient's lack of sensation does limit this assessment and I recommend he follow up with the burn clinic. Disposition Clinical Impression: Second degree burn injury Disposition: HOME SELF-CARE Condition: Fair Instructions (If sedation given, give patient instructions): Second-Degree Burn (ED) Additional Instructions: [phone] phone number to the burn clinic in [place]. Please call for appointment Prescriptions: Cephalexin [Keflex] 500 mg PO QID #40 cap SILVER sulfADIAZINE CREAM [Silvadene Cream] 1 applic TOPICAL DAILY #50 gram Is patient prescribed a controlled substance at d/c from ED?: No Referrals: Karl Pike DO [Primary Care Provider] - 1-2 days Time of Disposition: 21:21
== END 2022-03-12 21:37 | disposition home or self-care (01) ==
LOC: EC 15:50
DX: T25.222A Burn of second degree of left foot, initial encounter (principal); T31.0 Burns involving less than 10% of body surface; E11.9 Type 2 diabetes mellitus without complications; E78.5 Hyperlipidemia, unspecified; I10 Essential (primary) hypertension; M06.9 Rheumatoid arthritis, unspecified; Z79.82 Long term (current) use of aspirin; Z79.84 Long term (current) use of oral hypoglycemic drugs; Z79.899 Other long term (current) drug therapy; Y27.2XXA Contact with hot fluids, undetermined intent, initial encounter
CPT/HCPCS: 99283

== ENCOUNTER 2022-04-03 15:06 | Emergency (ER) | payer MEDICARE ==
[2022-04-03] MEDS ORDERED: SODIUM CHLORIDE 0.9% 500 ML 500 ML IV STA (15:27)
[2022-04-03] MEDS ORDERED: ONDANSETRON 4 MG/2 ML VIAL IVP STA (15:27)
[2022-04-03] MEDS ORDERED: PANTOPRAZOLE 40 MG/10 ML VIAL IVP STA (15:29)
--- NOTE | 2022-04-03 15:38 | ED ---
General Adult HPI - General Chief complaint: Nausea/Vomiting/Diarrhea Stated complaint: vomitting, nausea Time Seen by Provider: 04/03/22 15:14 Source: patient Mode of arrival: wheelchair Limitations: no limitations - History of Present Illness Initial comments: 's patient is a 77-year-old man who presents to have evaluation at the urging of his physician. The patient had gone to have evaluation of a burn that is healing on his foot. When he was in the office he was noted to be persistently tachycardic. The patient then related that he had been having nausea and vomiting and not keeping much in way of fluids down going back around 4 days. He also is having some lower abdominal pain. He was sent here to have further evaluation. Patient also notes on history he had dark tarry stool during the past 4 days. -: days(s) Location: abdomen Radiation: non-radiation Quality: dull Consistency: constant Improves with: none Worsens with: none Associated Symptoms: nausea/vomiting Treatments Prior to Arrival: none - Related Data Home Medications Medication Instructions Recorded Confirmed Aspirin [Adult Low Dose Aspirin EC] 81 mg PO DAILY 05/19/17 04/03/22 Atorvastatin [Lipitor] 20 mg PO DAILY 05/19/17 04/03/22 Etanercept [Enbrel] 50 mg SQ WE 05/19/17 04/03/22 atenoloL [Tenormin] 50 mg PO BID 05/19/17 04/03/22 metFORMIN HCL [Glucophage] 500 mg PO BID 05/19/17 04/03/22 Calcium Carbonate [Calcium] 600 mg PO DAILY 02/01/22 04/03/22 Cholecalciferol [Vitamin D3 (25 25 mcg PO DAILY 02/01/22 04/03/22 Mcg = 1000 Iu)] Empagliflozin [Jardiance] 25 mg PO DAILY 02/01/22 04/03/22 Folic Acid 1 mg PO DAILY 02/01/22 04/03/22 Glimepiride [Amaryl] 2 mg PO W/BRKFST 02/01/22 04/03/22 lisinopriL 30 mg PO DAILY 02/01/22 04/03/22 metHOTREXate sodium [Methotrexate] 25 mg PO HEIN 02/01/22 04/03/22 Apixaban [Eliquis] 5 mg PO BID 04/03/22 04/03/22 Gabapentin 600 mg PO TID 04/03/22 04/03/22 HYDROcodone/APAP 7.5-325MG [[place] 2 tab PO QID PRN 04/03/22 04/03/22 7.5-325] SILVER sulfADIAZINE CREAM 1 applic TOPICAL DAILY 04/03/22 04/03/22 [Silvadene Cream] amLODIPine [Norvasc] 10 mg PO DAILY 04/03/22 04/03/22 Previous Rx's Medication Instructions Recorded Pantoprazole [Protonix] 40 mg PO AC-BID #60 tab 02/07/22 Amoxic-Pot Clav 875-125Mg 1 tab PO Q12HR 1 Days #14 tab 04/03/22 [Augmentin 875-125] Allergies Allergy/AdvReac Type Severity Reaction Status Date / Time No Known Allergies Allergy Verified 04/03/22 16:30 Review of Systems ROS Statement: Those systems with pertinent positive or pertinent negative responses have been documented in the HPI. ROS Other: All systems not noted in ROS Statement are negative. Constitutional: Reports: weakness. Denies: fever, chills Respiratory: Denies: cough, dyspnea Cardiovascular: Denies: chest pain, palpitations, edema, syncope Gastrointestinal: Reports: abdominal pain, nausea, vomiting, diarrhea, melena. Denies: constipation, hematemesis, hematochezia Genitourinary: Denies: dysuria, hematuria Musculoskeletal: Denies: back pain Skin: Denies: rash Neurological: Denies: headache, weakness, numbness Past Medical History Past Medical History: Diabetes Mellitus, Hyperlipidemia, Hypertension, Rheumatoid Arthritis (RA) Additional Past Medical History / Comment(s): aortic aneurysm History of Any Multi-Drug Resistant Organisms: None Reported Past Surgical History: Hernia Repair Additional Past Surgical History / Comment(s): hemorrhoidectomy, surgeries for sebaceous cysts Past Anesthesia/Blood Transfusion Reactions: Motion Sickness Past Psychological History: No Psychological Hx Reported Smoking Status: Never smoker Past Alcohol Use History: None Reported Past Drug Use History: None Reported - Past Family History Son(s) Family Medical History: Cancer Additional Family Medical History / Comment(s): brain cancer Brother(s) Family Medical History: Cancer Additional Family Medical History / Comment(s): colon cancer Sister(s) Family Medical History: Cancer General Exam Limitations: no limitations General appearance: alert, in no apparent distress Head exam: Present: atraumatic, normocephalic Eye exam: Present: normal appearance. Absent: scleral icterus, conjunctival injection ENT exam: Present: normal exam Neck exam: Present: normal inspection Respiratory exam: Present: normal lung sounds bilaterally. Absent: respiratory distress, wheezes, rales, rhonchi, stridor, chest wall tenderness Cardiovascular Exam: Present: regular rate, normal rhythm, normal heart sounds. Absent: systolic murmur, diastolic murmur, rubs, gallop GI/Abdominal exam: Present: soft, tenderness. Absent: distended, guarding, rebound, rigid, mass, pulsatile mass, hernia Extremities exam: Present: normal inspection, normal capillary refill. Absent: pedal edema, calf tenderness Back exam: Present: normal inspection. Absent: CVA tenderness (R), CVA tenderness (L) Neurological exam: Present: alert Skin exam: Present: warm, dry, intact, normal color. Absent: rash Course Vital Signs 04/03/22 04/03/22 04/03/22 15:09 16:40 16:51 Temperature 98.6 F Pulse Rate 120 H 102 H 105 H Respiratory 16 16 Rate Blood Pressure 162/75 157/80 157/80 O2 Sat by Pulse 98 97 97 Oximetry 04/03/22 04/03/22 17:00 18:00 Temperature Pulse Rate 107 H 102 H Respiratory 15 Rate Blood Pressure 157/80 147/76 O2 Sat by Pulse 96 98 Oximetry EKG Findings - EKG Comments: EKG Findings:: Underlying rhythm is ectopic atrial tachycardia, rate 117. - EKG Results: EKG: interpreted by ERMD EKG shows: tachycardia - Blocks, [place], Hypertrophy, ST Abn: AV and intraventricular conduction: 1 AV block, right bundle branch block (fixed/intermittent, complete/incomplete), left anterior fascicular block Chamber hypertrophy or enlargement: left ventricular hypertrophy or enlargement (LVE) Medical Decision Making - Lab Data Result diagrams: 04/03/22 16:27 04/03/22 Unknown Lab Results 04/03/22 04/03/22 04/03/22 Range/Units 16:24 16:27 16:30 WBC 5.1 (3.8-10.6) k/uL RBC 2.63 L (4.30-5.90) m/uL Hgb 8.6 L (13.0-17.5) gm/dL Hct 25.9 L (39.0-53.0) % MCV 98.4 D (80.0-100.0) fL MCH 32.8 (25.0-35.0) pg MCHC 33.4 (31.0-37.0) g/dL RDW 17.7 H (11.5-15.5) % Plt Count 254 (150-450) k/uL MPV 8.9 Neutrophils % (Manual) 72 % Lymphocytes % (Manual) 21 % Monocytes % (Manual) 7 % Neutrophils # (Manual) 3.67 (1.3-7.7) k/uL Lymphocytes # (Manual) 1.07 (1.0-4.8) k/uL Monocytes # (Manual) 0.36 (0-1.0) k/uL Nucleated RBCs 0 (0-0) /100 WBC Manual Slide Review Performed Poikilocytosis Slight Anisocytosis Slight Macrocytosis Slight Sodium (137-145) mmol/L Potassium (3.5-5.1) mmol/L Chloride (98-107) mmol/L Carbon Dioxide (22-30) mmol/L Anion Gap mmol/L BUN (9-20) mg/dL Creatinine (0.66-1.25) mg/dL Est GFR (CKD-EPI)AfAm (>60 ml/min/1.73 sqM) Est GFR (CKD-EPI)NonAf (>60 ml/min/1.73 sqM) Glucose (74-99) mg/dL Calcium (8.4-10.2) mg/dL Total Bilirubin (0.2-1.3) mg/dL AST (17-59) U/L ALT (4-49) U/L Alkaline Phosphatase (38-126) U/L Total Protein (6.3-8.2) g/dL Albumin (3.5-5.0) g/dL Amylase (30-110) U/L Lipase (23-300) U/L Urine Color Urine Appearance (Clear) Urine pH (5.0-8.0) Ur Specific [place] (1.001-1.035) Urine Protein (Negative) Urine Glucose (UA) (Negative) Urine Ketones (Negative) Urine Blood (Negative) Urine Nitrite (Negative) Urine Bilirubin (Negative) Urine Urobilinogen (<2.0) mg/dL Ur Leukocyte Esterase (Negative) Urine RBC (0-5) /hpf Urine WBC (0-5) /hpf Urine Bacteria (None) /hpf Urine Mucus (None) /hpf Stool Occult Blood (Negative) Blood Type O Positive Blood Type Confirm O Positive Blood Type Recheck No Previous Record Bld Type Recheck Status CABO Indicated Antibody Screen NEGATIVE Spec Expiration Date 04/06/2022 - 232304/03/22 04/03/22 04/03/22 Range/Units 17:00 20:00 Unknown WBC (3.8-10.6) k/uL RBC (4.30-5.90) m/uL Hgb (13.0-17.5) gm/dL Hct (39.0-53.0) % MCV (80.0-100.0) fL MCH (25.0-35.0) pg MCHC (31.0-37.0) g/dL RDW (11.5-15.5) % Plt Count (150-450) k/uL MPV Neutrophils % (Manual) % Lymphocytes % (Manual) % Monocytes % (Manual) % Neutrophils # (Manual) (1.3-7.7) k/uL Lymphocytes # (Manual) (1.0-4.8) k/uL Monocytes # (Manual) (0-1.0) k/uL Nucleated RBCs (0-0) /100 WBC Manual Slide Review Poikilocytosis Anisocytosis Macrocytosis Sodium 135 L (137-145) mmol/L Potassium 4.3 (3.5-5.1) mmol/L Chloride 102 (98-107) mmol/L Carbon Dioxide 16 L (22-30) mmol/L Anion Gap 17 mmol/L BUN 26 H (9-20) mg/dL Creatinine 1.14 (0.66-1.25) mg/dL Est GFR (CKD-EPI)AfAm 71 (>60 ml/min/1.73 sqM) Est GFR (CKD-EPI)NonAf 62 (>60 ml/min/1.73 sqM) Glucose 132 H (74-99) mg/dL Calcium 9.2 (8.4-10.2) mg/dL Total Bilirubin 1.0 (0.2-1.3) mg/dL AST 29 (17-59) U/L ALT 28 (4-49) U/L Alkaline Phosphatase 50 (38-126) U/L Total Protein 7.1 (6.3-8.2) g/dL Albumin 3.7 (3.5-5.0) g/dL Amylase 64 (30-110) U/L Lipase 149 (23-300) U/L Urine Color Yellow Urine Appearance Clear (Clear) Urine pH 5.5 (5.0-8.0) Ur Specific [place] 1.021 (1.001-1.035) Urine Protein 2+ H (Negative) Urine Glucose (UA) 4+ H (Negative) Urine Ketones 2+ H (Negative) Urine Blood Negative (Negative) Urine Nitrite Negative (Negative) Urine Bilirubin 1+ H (Negative) Urine Urobilinogen 2.0 (<2.0) mg/dL Ur Leukocyte Esterase Negative (Negative) Urine RBC <1 (0-5) /hpf Urine WBC <1 (0-5) /hpf Urine Bacteria Rare H (None) /hpf Urine Mucus Occasional H (None) /hpf Stool Occult Blood Negative (Negative) Blood Type Blood Type Confirm Blood Type Recheck Bld Type Recheck Status Antibody Screen Spec Expiration Date Disposition Clinical Impression: Colitis, Anemia Disposition: HOME SELF-CARE Condition: Good Instructions (If sedation given, give patient instructions): Anemia (ED), Colitis (ED) Prescriptions: Amoxic-Pot Clav 875-125Mg [Augmentin 875-125] 1 tab PO Q12HR 1 Days #14 tab Is patient prescribed a controlled substance at d/c from ED?: No Referrals: Karl Pike DO [Primary Care Provider] - 1-2 days
[2022-04-03 16:33] LABS: Albumin 3.7 g/dL (3.5-5.0); Calcium 9.2 mg/dL (8.4-10.2); Potassium 4.3 mmol/L (3.5-5.1); Total Protein 7.1 g/dL (6.3-8.2)
[2022-04-03 16:56] LABS: Anisocytosis Slight; HCT 25.9 % (39.0-53.0); HGB 8.6 gm/dL (13.0-17.5); MCH 32.8 pg (25.0-35.0); MCHC 33.4 g/dL (31.0-37.0); Macrocytosis Slight; Mean Platelet Volume 8.9; Platelet Count 254 k/uL (150-450); Poikilocytosis Slight; RBC 2.63 m/uL (4.30-5.90); RDW 17.7 % (11.5-15.5); WBC 5.1 k/uL (3.8-10.6)
[2022-04-03 16:58] LABS: MCV 98.4 fL (80.0-100.0)
[2022-04-03 17:19] LABS: Lymphocytes # (M) 1.07 k/uL (1.0-4.8); Monocytes # (M) 0.36 k/uL (0-1.0); Neutrophils # (M) 3.67 k/uL (1.3-7.7); Neutrophils % (M) 72 %; Nucleated Red Blood Cells 0 /100 WBC (0-0); Total Cells Counted 100
[2022-04-03 17:51] LABS: Appearance,Urine Clear (Clear); Bacteria,Urine Rare /hpf; Bilirubin,Urine 1+ (Negative); Blood,Urine Negative (Negative); Color,Urine Yellow; Glucose,Urine (UA) 4+ (Negative); Leukocyte Esterase,Urine Negative (Negative); Mucus,Urine Occasional /hpf; Nitrite,Urine Negative (Negative); PH, Urine 5.5 (5.0-8.0); Protein,Urine 2+ (Negative); RBC,Urine <1 /hpf (0-5); Specific Gravity,Urine 1.021 (1.001-1.035); WBC,Urine <1 /hpf (0-5)
[2022-04-03 17:57] LABS: Ketones,Urine 2+ (Negative)
--- NOTE | 2022-04-03 18:15 | CT ---
EXAMINATION TYPE: CT abdomen pelvis wo con CT DLP: 628.9 mGycm, Automated exposure control for dose reduction was used. DATE OF EXAM: 04/03/2022 5:17 PM COMPARISON: CLINICAL INDICATION:Male, 77 years old with history of RLQ abdominal pain; LLQ pain TECHNIQUE: Axial CT of the abdomen and pelvis. Sagittal and coronal reformats were created on a [employer] workstation. Contrast used: mL of , Oral contrast used: without Oral Contrast FINDINGS: LOWER CHEST: The heart is mildly enlarged for size. There is mild coronary artery atherosclerosis nancy nges. Trace left pleural effusion noted. ABDOMEN LIVER: Lobular contour to the lingular. GALLBLADDER AND BILE DUCTS: Unremarkable. PANCREAS: Unremarkable. SPLEEN: Unremarkable. ADRENAL GLANDS: Left renal nodule unchanged from prior and 18 2018. This likely represents adrenal ad enoma. Residual glands unremarkable. KIDNEYS AND URETERS: No evidence of hydronephrosis or renal calculus. PELVIS BLADDER: Unremarkable REPRODUCTIVE: Unremarkable. ABDOMEN & PELVIS STOMACH AND BOWEL: No evidence of bowel obstruction. Scattered clonic diverticula present. Minimal in flammation changes are seen around these clonic diverticula in the left lower quadrant. Appendix is n ormal. PERITONEUM: No evidence of pneumoperitoneum or free fluid. VASCULATURE: Infrarenal fusiform aortic aneurysm probably 6 cm similar to prior in 2018. Atherosclero sis of the arterial vasculature. MUSCULOSKELETAL: No acute osseous abnormalities, multilevel disc degeneration changes are seen throug hout the spine. LYMPH NODES: No gross evidence for lymphadenopathy. SOFT TISSUE/ABDOMINAL WALL: Unremarkable IMPRESSION: 1. Mild inflammation changes suggested around the sigmoid colon correlate for early mild colitis/div erticulitis. 2. Similar infrarenal aortic fusiform aneurysmal dilation up to 4.6 cm image 2018. 3. Nodular contour to liver correlate for cirrhosis. Similar to prior and 18. 4. Atrophic right kidney. Correlate for medical renal disease. 5. Trace left pleural effusion., This is new from prior in 2018.
[2022-04-03] MEDS ORDERED: AMOXIC-POT CLAV 875-125MG 1 EACH TAB PO STA (20:11)
[2022-04-03 20:19] VITALS: BP 156/89; PULSE 110; RESP 18; TEMP 97.9
== END 2022-04-03 20:34 | disposition home or self-care (01) ==
LOC: EC 15:06
DX: D64.9 Anemia, unspecified (principal); K52.9 Noninfective gastroenteritis and colitis, unspecified; E11.9 Type 2 diabetes mellitus without complications; I10 Essential (primary) hypertension; E78.5 Hyperlipidemia, unspecified; Z79.84 Long term (current) use of oral hypoglycemic drugs; Z79.899 Other long term (current) drug therapy
CPT/HCPCS: 36415; 93005; 86900; 86901; 80053; 82150; 83690; 85025; 86850; 82272; 81001; 74176; 99284; 96374; 96375; 96361; J2405; C9113

== ENCOUNTER 2022-05-09 09:05 | Observation (INO) | payer MEDICARE ==
[2022-05-09 10:04] LABS: Anisocytosis Slight; HCT 20.5 % (39.0-53.0); Hypochromasia Marked; MCH 32.5 pg (25.0-35.0); MCHC 31.8 g/dL (31.0-37.0); MCV 102.3 fL (80.0-100.0); Macrocytosis Moderate; Mean Platelet Volume 8.8; Platelet Count 240 k/uL (150-450); Poikilocytosis Slight; RDW 19.9 % (11.5-15.5); WBC 5.8 k/uL (3.8-10.6)
[2022-05-09 10:13] LABS: HGB 6.5 gm/dL (13.0-17.5)
[2022-05-09 10:20] LABS: Partial Thromboplastin Time 22.3 sec (22.0-30.0); Prothrombin Time 10.8 sec (9.0-12.0)
[2022-05-09 10:23] LABS: Albumin 2.8 g/dL (3.5-5.0); Calcium 9.1 mg/dL (8.4-10.2); Magnesium 2.2 mg/dL (1.6-2.3); Potassium 4.8 mmol/L (3.5-5.1); Total Bilirubin 0.4 mg/dL (0.2-1.3)
[2022-05-09 10:29] LABS: Band Neutrophils % 2 %; Lymphocytes # (M) 1.16 k/uL (1.0-4.8); Monocytes # (M) 0.23 k/uL (0-1.0); Neutrophils % (M) 74 %; Nucleated Red Blood Cells 0 /100 WBC (0-0); Poikilocytosis (M) Present; Polychromasia Present; Stomatocytes Present; Total Cells Counted 100
--- NOTE | 2022-05-09 11:20 | ED ---
General Adult HPI - General Chief complaint: Recheck/Abnormal Lab/Rx Stated complaint: Black Stool, Low Hemoglobin Time Seen by Provider: 05/09/22 09:18 Source: patient Mode of arrival: ambulatory Limitations: no limitations - History of Present Illness Initial comments: 77-year-old male past history of DVT on Eliquis, diabetes, hypertension who presents to the emergency department under the direction of his primary care doctor. Patient had blood work done and was told that he had low hemoglobin. Patient was placed on Eliquis earlier this year due to DVT. States he has not had any bleeding issues until now. Admits to dark stools for "some time". Recently the has started helping him use the restroom and noted that his stools were dark. He does take iron but she states that this is much darker. The patient denies hematemesis. No abdominal or rectal pain. No fevers. No history of ulcers. He has had a colonoscopy 5 years ago which demonstrated a polyp. No other alleviating, precipitating or modifying factors - Related Data Home Medications Medication Instructions Recorded Confirmed Atorvastatin [Lipitor] 20 mg PO DAILY 05/19/17 05/09/22 atenoloL [Tenormin] 50 mg PO BID 05/19/17 05/09/22 metFORMIN HCL [Glucophage] 500 mg PO BID 05/19/17 05/09/22 Calcium Carbonate [Calcium] 600 mg PO DAILY 02/01/22 05/09/22 Cholecalciferol [Vitamin D3 (25 25 mcg PO DAILY 02/01/22 05/09/22 Mcg = 1000 Iu)] Empagliflozin [Jardiance] 25 mg PO DAILY 02/01/22 05/09/22 Folic Acid 1 mg PO DAILY 02/01/22 05/09/22 metHOTREXate sodium [Methotrexate] 25 mg PO HEIN 02/01/22 05/09/22 Gabapentin 600 mg PO TID 04/03/22 05/09/22 HYDROcodone/APAP 7.5-325MG [[place] 2 tab PO QID PRN 04/03/22 05/09/22 7.5-325] amLODIPine [Norvasc] 10 mg PO DAILY 04/03/22 05/09/22 Acetaminophen [Tylenol 8 Hour] 650 mg PO Q4H PRN 05/09/22 05/09/22 predniSONE 10 mg PO BID 05/09/22 05/09/22 Previous Rx's Medication Instructions Recorded Pantoprazole [Protonix] 40 mg PO AC-BID #60 tab 02/07/22 Peg 3350 (236 gm/Btl) + Lytes 4,000 ml PO DIRECTED #1 each 05/10/22 [Golytely Lavage] Allergies Allergy/AdvReac Type Severity Reaction Status Date / Time No Known Allergies Allergy Verified 05/09/22 12:57 Review of Systems ROS Statement: Those systems with pertinent positive or pertinent negative responses have been documented in the HPI. ROS Other: All systems not noted in ROS Statement are negative. Past Medical History Past Medical History: Diabetes Mellitus, Hyperlipidemia, Hypertension, Rheumatoid Arthritis (RA) Additional Past Medical History / Comment(s): aortic aneurysm History of Any Multi-Drug Resistant Organisms: None Reported Past Surgical History: Hernia Repair Additional Past Surgical History / Comment(s): hemorrhoidectomy, surgeries for sebaceous cysts Past Anesthesia/Blood Transfusion Reactions: Motion Sickness Past Psychological History: No Psychological Hx Reported Smoking Status: Never smoker Past Alcohol Use History: None Reported Past Drug Use History: None Reported - Past Family History Son(s) Family Medical History: Cancer Additional Family Medical History / Comment(s): brain cancer Brother(s) Family Medical History: Cancer Additional Family Medical History / Comment(s): colon cancer Sister(s) Family Medical History: Cancer General Exam Limitations: no limitations General appearance: alert, in no apparent distress Head exam: Present: atraumatic, normocephalic, normal inspection Eye exam: Present: normal appearance, PERRL, EOMI. Absent: scleral icterus, conjunctival injection, periorbital swelling ENT exam: Present: normal exam, mucous membranes moist Neck exam: Present: normal inspection. Absent: tenderness, meningismus, lymphadenopathy Respiratory exam: Present: normal lung sounds bilaterally. Absent: respiratory distress, wheezes, rales, rhonchi, stridor Cardiovascular Exam: Present: regular rate, normal rhythm, normal heart sounds. Absent: systolic murmur, diastolic murmur, rubs, gallop, clicks GI/Abdominal exam: Present: soft, normal bowel sounds. Absent: distended, tenderness, guarding, rebound, rigid Rectal exam: Present: black stool. Absent: bloody stool, hemorrhoids, mass Extremities exam: Present: normal inspection, full ROM, normal capillary refill. Absent: tenderness, pedal edema, joint swelling, calf tenderness Back exam: Present: normal inspection Neurological exam: Present: alert, oriented X3, CN II-XII intact Psychiatric exam: Present: normal affect, normal mood Skin exam: Present: warm, dry, intact, normal color. Absent: rash Course Vital Signs 05/09/22 05/09/22 05/09/22 09:15 10:40 11:00 Temperature 97.9 F Pulse Rate 94 95 98 Respiratory 20 18 18 Rate Blood Pressure 146/88 142/88 142/78 O2 Sat by Pulse 96 96 94 L Oximetry 05/09/22 05/09/22 05/09/22 12:00 13:00 13:30 Temperature 98.7 F Pulse Rate 96 96 96 Respiratory 18 18 18 Rate Blood Pressure 143/86 138/81 136/81 O2 Sat by Pulse 95 94 L Oximetry 05/09/22 05/09/22 05/09/22 13:40 14:00 15:00 Temperature 98.6 F 97.9 F Pulse Rate 94 97 95 Respiratory 18 18 18 Rate Blood Pressure 138/76 151/105 147/106 O2 Sat by Pulse 95 Oximetry 05/09/22 05/09/22 15:32 16:11 Temperature 98.1 F Pulse Rate 95 94 Respiratory 18 18 Rate Blood Pressure 150/88 O2 Sat by Pulse 96 Oximetry Medical Decision Making - Medical Decision Making Upon arrival patient was placed into room 4. There are history and physical exam is performed. Patient is hemodynamically stable at this time. I did perf orm a rectal exam which demonstrates a few fragments of dark brown stool. No bright red blood. IV is established and laboratory studies are conducted. Laboratory studies reveal a hemoglobin of 6.5. One unit transfusion is ordered. Called and spoke with Dr. Robertson who agreed to consult on the patient. Called and spoke with Dr. Vincent who agreed to admit the patient. Eliquis will be held. Patient allowed have a clear liquid diet. Patient agreeable to this plan and is admitted to the floor in stable condition - Lab Data Result diagrams: 05/11/22 07:51 05/10/22 07:05 Lab Results 05/09/22 05/09/22 05/09/22 Range/Units 09:51 09:51 09:51 WBC 5.8 (3.8-10.6) k/uL RBC 2.00 L (4.30-5.90) m/uL Hgb 6.5 L* D (13.0-17.5) gm/dL Hct 20.5 L (39.0-53.0) % MCV 102.3 H (80.0-100.0) fL MCH 32.5 (25.0-35.0) pg MCHC 31.8 (31.0-37.0) g/dL RDW 19.9 H (11.5-15.5) % Plt Count 240 (150-450) k/uL MPV 8.8 Neutrophils % (Manual) 74 % Band Neuts % (Manual) 2 % Lymphocytes % (Manual) 20 % Monocytes % (Manual) 4 % Neutrophils # (Manual) 4.40 (1.3-7.7) k/uL Lymphocytes # (Manual) 1.16 (1.0-4.8) k/uL Monocytes # (Manual) 0.23 (0-1.0) k/uL Nucleated RBCs 0 (0-0) /100 WBC Polychromasia Present Hypochromasia Marked Poikilocytosis Slight Poikilocytosis (manual Present Anisocytosis Slight Macrocytosis Moderate Stomatocytes Present PT 10.8 (9.0-12.0) sec INR 1.0 (<1.2) APTT 22.3 (22.0-30.0) sec Sodium 139 (137-145) mmol/L Potassium 4.8 (3.5-5.1) mmol/L Chloride 109 H (98-107) mmol/L Carbon Dioxide 21 L (22-30) mmol/L Anion Gap 9 mmol/L BUN 36 H (9-20) mg/dL Creatinine 1.23 (0.66-1.25) mg/dL Est GFR (CKD-EPI)AfAm 65 (>60 ml/min/1.73 sqM) Est GFR (CKD-EPI)NonAf 56 (>60 ml/min/1.73 sqM) Glucose 217 H (74-99) mg/dL Plasma Lactic Acid Hernán (0.7-2.0) mmol/L Calcium 9.1 (8.4-10.2) mg/dL Magnesium 2.2 (1.6-2.3) mg/dL Total Bilirubin 0.4 (0.2-1.3) mg/dL AST 53 (17-59) U/L ALT 49 (4-49) U/L Alkaline Phosphatase 118 (38-126) U/L Troponin I (0.000-0.034) ng/mL Total Protein 6.0 L (6.3-8.2) g/dL Albumin 2.8 L (3.5-5.0) g/dL Lipase 332 H (23-300) U/L Stool Occult Blood (Negative) Blood Type Blood Type Recheck Bld Type Recheck Status Antibody Screen Crossmatch Spec Expiration Date 05/09/22 05/09/22 05/09/22 Range/Units 09:51 09:51 10:41 WBC (3.8-10.6) k/uL RBC (4.30-5.90) m/uL Hgb (13.0-17.5) gm/dL Hct (39.0-53.0) % MCV (80.0-100.0) fL MCH (25.0-35.0) pg MCHC (31.0-37.0) g/dL RDW (11.5-15.5) % Plt Count (150-450) k/uL MPV Neutrophils % (Manual) % Band Neuts % (Manual) % Lymphocytes % (Manual) % Monocytes % (Manual) % Neutrophils # (Manual) (1.3-7.7) k/uL Lymphocytes # (Manual) (1.0-4.8) k/uL Monocytes # (Manual) (0-1.0) k/uL Nucleated RBCs (0-0) /100 WBC Polychromasia Hypochromasia Poikilocytosis Poikilocytosis (manual Anisocytosis Macrocytosis Stomatocytes PT (9.0-12.0) sec INR (<1.2) APTT (22.0-30.0) sec Sodium (137-145) mmol/L Potassium (3.5-5.1) mmol/L Chloride (98-107) mmol/L Carbon Dioxide (22-30) mmol/L Anion Gap mmol/L BUN (9-20) mg/dL Creatinine (0.66-1.25) mg/dL Est GFR (CKD-EPI)AfAm (>60 ml/min/1.73 sqM) Est GFR (CKD-EPI)NonAf (>60 ml/min/1.73 sqM) Glucose (74-99) mg/dL Plasma Lactic Acid Hernán 1.4 (0.7-2.0) mmol/L Calcium (8.4-10.2) mg/dL Magnesium (1.6-2.3) mg/dL Total Bilirubin (0.2-1.3) mg/dL AST (17-59) U/L ALT (4-49) U/L Alkaline Phosphatase (38-126) U/L Troponin I 0.031 (0.000-0.034) ng/mL Total Protein (6.3-8.2) g/dL Albumin (3.5-5.0) g/dL Lipase (23-300) U/L Stool Occult Blood (Negative) Blood Type O Positive Blood Type Recheck O Pos Bld Type Recheck Status No Antibody Screen NEGATIVE Crossmatch See Detail Spec Expiration Date 05/12/2022 - 235005/09/22 Range/Units 11:00 WBC (3.8-10.6) k/uL RBC (4.30-5.90) m/uL Hgb (13.0-17.5) gm/dL Hct (39.0-53.0) % MCV (80.0-100.0) fL MCH (25.0-35.0) pg MCHC (31.0-37.0) g/dL RDW (11.5-15.5) % Plt Count (150-450) k/uL MPV Neutrophils % (Manual) % Band Neuts % (Manual) % Lymphocytes % (Manual) % Monocytes % (Manual) % Neutrophils # (Manual) (1.3-7.7) k/uL Lymphocytes # (Manual) (1.0-4.8) k/uL Monocytes # (Manual) (0-1.0) k/uL Nucleated RBCs (0-0) /100 WBC Polychromasia Hypochromasia Poikilocytosis Poikilocytosis (manual Anisocytosis Macrocytosis Stomatocytes PT (9.0-12.0) sec INR (<1.2) APTT (22.0-30.0) sec Sodium (137-145) mmol/L Potassium (3.5-5.1) mmol/L Chloride (98-107) mmol/L Carbon Dioxide (22-30) mmol/L Anion Gap mmol/L BUN (9-20) mg/dL Creatinine (0.66-1.25) mg/dL Est GFR (CKD-EPI)AfAm (>60 ml/min/1.73 sqM) Est GFR (CKD-EPI)NonAf (>60 ml/min/1.73 sqM) Glucose (74-99) mg/dL Plasma Lactic Acid Hernán (0.7-2.0) mmol/L Calcium (8.4-10.2) mg/dL Magnesium (1.6-2.3) mg/dL Total Bilirubin (0.2-1.3) mg/dL AST (17-59) U/L ALT (4-49) U/L Alkaline Phosphatase (38-126) U/L Troponin I (0.000-0.034) ng/mL Total Protein (6.3-8.2) g/dL Albumin (3.5-5.0) g/dL Lipase (23-300) U/L Stool Occult Blood Positive (Negative) Blood Type Blood Type Recheck Bld Type Recheck Status Antibody Screen Crossmatch Spec Expiration Date Critical Care Time Critical Care Time: Yes Critical Care Time: 35 minutes for blood product transfusion Disposition Clinical Impression: GI bleed, Macrocytic anemia Disposition: ADMITTED IP TO THIS HOSP Is patient prescribed a controlled substance at d/c from ED?: No Time of Disposition: 12:15 Decision to Admit Reason: Admit from EC Decision Date: 05/09/22 Decision Time: 12:15
[2022-05-09] MEDS ORDERED: NALOXONE 0.4 MG/ML 1 ML VIAL IV PRN (12:15)
[2022-05-09] MEDS ORDERED: PANTOPRAZOLE 40 MG/10 ML VIAL IVP STA (12:30)
[2022-05-09] MEDS: SODIUM CHLORIDE 0.9% 1,000 ML IV SCH (13:13)
--- NOTE | 2022-05-09 14:27 | P.GSCN ---
History of Present Illness Consult date: 05/09/22 History of present illness: CHIEF COMPLAINT: Black stool with low hemoglobin HISTORY OF PRESENT ILLNESS: This is a 77-year-old male who presented to the hospital because he was found to have a low hemoglobin outpatient. Hemoglobin on admission is 6.5. Patient reports having dark stools for a while. He is on Eliquis for DVT history. Patient denies any abdominal pain. Denies any nausea or vomiting. He does take iron supplements at home. Denies any history of GI bleed or stomach ulcers. Denies any NSAID use. Patient seen and examined in the ER with Dr. banda PAST MEDICAL HISTORY: Diabetes Mellitus, Hyperlipidemia, Hypertension, Rheumatoid Arthritis (RA), colitis PAST SURGICAL HISTORY: See below MEDICATIONS: See below ALLERGIES: See below SOCIAL HISTORY: No illicit drug use. REVIEW OF SYSTEMS: CONSTITUTIONAL: Denies fever or chills. HEENT: Denies blurred vision, vision changes, or eye pain. Denies hemoptysis CARDIOVASCULAR: Denies chest pain or pressure. RESPIRATORY: No shortness of breath. GASTROINTESTINAL: See HPI for pertinent findings HEMATOLOGIC: Denies bleeding disorders. GENITOURINARY: Denies any blood in urine or increased urinary frequency. SKIN: Denies pruitis. Denies rash. PHYSICAL EXAM: VITAL SIGNS: Reviewed GENERAL: Well-developed in no acute distress. HEENT: No sclera icterus. Extraocular movements grossly intact. Moist buccal mucosa. Head is atraumatic, normocephalic. No nasal drainage. ABDOMEN: Soft. Nondistended. Nontender NEUROLOGIC: Alert and oriented. Cranial nerves II through XII grossly intact. LABORATORY DATA: WBC is 5.8 hemoglobin is 6.5 platelets 240 INR 1.0 Sodium 139 potassium is 4.8 creatinine 1.23 Lactic acid 1.4 Stool for occult blood positive IMAGING: ASSESSMENT: 1. Acute GI bleed with dark stools 2. Acute blood loss anemia 3. Anticoagulation use PLAN: -Patient scheduled for EGD and colonoscopy on Friday with Dr. Banda -Advance diet to full liquids -Continue to monitor hemoglobin -Continue to monitor for any signs or symptoms of bleeding -Continue PPI -Hold Eliquis -Agree with blood transfusion Thank you for this consultation Physician Real Estate Salesperson note has been reviewed by physician. Signing provider agrees with the documented findings, assessment, and plan of care. Past Medical History Past Medical History: Diabetes Mellitus, Hyperlipidemia, Hypertension, Rheumatoid Arthritis (RA) Additional Past Medical History / Comment(s): aortic aneurysm History of Any Multi-Drug Resistant Organisms: None Reported Past Surgical History: Hernia Repair Additional Past Surgical History / Comment(s): hemorrhoidectomy, surgeries for sebaceous cysts Past Anesthesia/Blood Transfusion Reactions: Motion Sickness Past Psychological History: No Psychological Hx Reported Smoking Status: Never smoker Past Alcohol Use History: None Reported Past Drug Use History: None Reported - Past Family History Son(s) Family Medical History: Cancer Additional Family Medical History / Comment(s): brain cancer Brother(s) Family Medical History: Cancer Additional Family Medical History / Comment(s): colon cancer Sister(s) Family Medical History: Cancer Medications and Allergies Home Medications Medication Instructions Recorded Confirmed Type Aspirin [Adult Low Dose Aspirin EC] 81 mg PO DAILY 05/19/17 05/09/22 History Atorvastatin [Lipitor] 20 mg PO DAILY 05/19/17 05/09/22 History atenoloL [Tenormin] 50 mg PO BID 05/19/17 05/09/22 History metFORMIN HCL [Glucophage] 500 mg PO BID 05/19/17 05/09/22 History Calcium Carbonate [Calcium] 600 mg PO DAILY 02/01/22 05/09/22 History Cholecalciferol [Vitamin D3 (25 25 mcg PO DAILY 02/01/22 05/09/22 History Mcg = 1000 Iu)] Empagliflozin [Jardiance] 25 mg PO DAILY 02/01/22 05/09/22 History Folic Acid 1 mg PO DAILY 02/01/22 05/09/22 History Glimepiride [Amaryl] 2 mg PO W/BRKFST 02/01/22 05/09/22 History lisinopriL 30 mg PO DAILY 02/01/22 05/09/22 History metHOTREXate sodium [Methotrexate] 25 mg PO HEIN 02/01/22 05/09/22 History Pantoprazole [Protonix] 40 mg PO AC-BID #60 tab 02/07/22 05/09/22 Rx Apixaban [Eliquis] 5 mg PO BID 04/03/22 05/09/22 History Gabapentin 600 mg PO TID 04/03/22 05/09/22 History HYDROcodone/APAP 7.5-325MG [[place] 2 tab PO QID PRN 04/03/22 05/09/22 History 7.5-325] amLODIPine [Norvasc] 10 mg PO DAILY 04/03/22 05/09/22 History Acetaminophen [Tylenol 8 Hour] 650 mg PO Q4H PRN 05/09/22 05/09/22 History polyethylene glycoL 3350 [Miralax] 17 gm PO DAILY PRN 05/09/22 05/09/22 History predniSONE 10 mg PO BID 05/09/22 05/09/22 History Allergies Allergy/AdvReac Type Severity Reaction Status Date / Time No Known Allergies Allergy Verified 05/09/22 12:57 Surgical - Exam Vital Signs Temp Pulse Resp BP Pulse Ox 97.9 F 94 20 146/88 96 05/09/22 09:15 05/09/22 09:15 05/09/22 09:15 05/09/22 09:15 05/09/22 09:15 Results - Labs 05/09/22 09:51 05/09/22 09:51 Abnormal Lab Results - Last 24 Hours (Table) 05/09/22 05/09/22 05/09/22 Range/Units 09:51 09:51 09:51 RBC 2.00 L (4.30-5.90) m/uL Hgb 6.5 L* D (13.0-17.5) gm/dL Hct 20.5 L (39.0-53.0) % MCV 102.3 H (80.0-100.0) fL RDW 19.9 H (11.5-15.5) % Chloride 109 H (98-107) mmol/L Carbon Dioxide 21 L (22-30) mmol/L BUN 36 H (9-20) mg/dL Glucose 217 H (74-99) mg/dL Total Protein 6.0 L (6.3-8.2) g/dL Albumin 2.8 L (3.5-5.0) g/dL Lipase 332 H (23-300) U/L Crossmatch See Detail Diabetes panel 05/09/22 Range/Units 09:51 Sodium 139 (137-145) mmol/L Potassium 4.8 (3.5-5.1) mmol/L Chloride 109 H (98-107) mmol/L Carbon Dioxide 21 L (22-30) mmol/L BUN 36 H (9-20) mg/dL Creatinine 1.23 (0.66-1.25) mg/dL Glucose 217 H (74-99) mg/dL Calcium 9.1 (8.4-10.2) mg/dL AST 53 (17-59) U/L ALT 49 (4-49) U/L Alkaline Phosphatase 118 (38-126) U/L Total Protein 6.0 L (6.3-8.2) g/dL Albumin 2.8 L (3.5-5.0) g/dL Calcium panel 05/09/22 Range/Units 09:51 Calcium 9.1 (8.4-10.2) mg/dL Albumin 2.8 L (3.5-5.0) g/dL Pituitary panel 05/09/22 Range/Units 09:51 Sodium 139 (137-145) mmol/L Potassium 4.8 (3.5-5.1) mmol/L Chloride 109 H (98-107) mmol/L Carbon Dioxide 21 L (22-30) mmol/L BUN 36 H (9-20) mg/dL Creatinine 1.23 (0.66-1.25) mg/dL Glucose 217 H (74-99) mg/dL Calcium 9.1 (8.4-10.2) mg/dL Adrenal panel 05/09/22 Range/Units 09:51 Sodium 139 (137-145) mmol/L Potassium 4.8 (3.5-5.1) mmol/L Chloride 109 H (98-107) mmol/L Carbon Dioxide 21 L (22-30) mmol/L BUN 36 H (9-20) mg/dL Creatinine 1.23 (0.66-1.25) mg/dL Glucose 217 H (74-99) mg/dL Calcium 9.1 (8.4-10.2) mg/dL Total Bilirubin 0.4 (0.2-1.3) mg/dL AST 53 (17-59) U/L ALT 49 (4-49) U/L Alkaline Phosphatase 118 (38-126) U/L Total Protein 6.0 L (6.3-8.2) g/dL Albumin 2.8 L (3.5-5.0) g/dL
[2022-05-09] MEDS ORDERED: HYDROcodone/APAP 7.5-325MG 1 EACH TAB PO PRN (16:24)
[2022-05-09] MEDS ORDERED: DEXTROSE 50% SYRINGE 50 ML IVP PRN ×2 (18:22)
--- NOTE | 2022-05-09 18:26 | P.HPIM ---
History of Present Illness H&P Date: 05/09/22 Chief Complaint: Dark stools Hospital course 76-year-old man , follows with Dr. Pike with chronic stable medical conditions include hypertension, hyperlipidemia, diabetes, rheumatoid arthritis on chronic steroids . January 2022 had PE for which patient is on eliquis. Patient now presents with his . For 1 month patient been having black stools. Did not tell anybody. Seen by the yesterday. She mentioned this to her web content executive and patient was sent in here. Patient also has a sacral pressure wound. Normally needs of Mckeon's to stand up and has been more unsteady and falling recently. Feeling weak and tired. Appetite is fair. No fever no chills. No abdominal pain. Review of systems: GEN.: Tired EYES: None HEENT: None NECK: None RESPIRATORY: None CARDIOVASCULAR: None GASTROINTESTINAL: Dark stools GENITOURINARY: None MUSCULOSKELETAL: Joint pains LYMPHATICS: None HEMATOLOGICAL: None PSYCHIATRY: Bit forgetful NEUROLOGICAL: None. Past medical history to include: Pulmonary embolism January 2022, diabetes mellitus, hyperlipidemia, CK D stage III, essential hypertension, chronic rheumatoid arthritis, empyema, colitis Social history: Lives with his . Retired from [employer]. Smoked for 34 years 1 pack a day stopped about 26 years ago. Physical examination: VITAL SIGNS: 98.1, 95, 18, 150/88, 95% on room air GENERAL: BMI 25.1, sitting at edge of the bed, eating comfortable. EYES: Pupils equal. Conjunctiva normal. HEENT: External appearance of nose and ears normal, oral cavity grossly normal. NECK: JVD not raised; masses not palpable. HEART: First and second heart sounds are normal; no edema. LUNGS: Respiratory rate normal; clear to auscultation. ABDOMEN: Soft, nontender, liver spleen not palpable, no masses palpable. PSYCH: Alert and oriented x3; mood and affect normal. MUSCULOSKELETAL:No Clubbing/cyanosis;muscles-grossly intact, evidence of arthritis in the joints NEUROLOGICAL: Cranial nerves grossly intact; no facial asymmetry, power and sensation grossly intact. LYMPHATICS: No lymph nodes palpable in the axilla and neck INVESTIGATIONS, reviewed in the clinical context: WBC 5.8 hemoglobin 6.5 platelets 240 potassium 4.8 bicarbonate 21 BUN 36 creatinine 1.23 Stool occult blood positive Assessment and plan: -Acute GI bleed in a patient who takes eliquis. Has been having dark stools for a month. Symptomatic. Weak and tired. Stop eliquis. Clear liquids. PPI -Acute severe blood loss anemia from GI bleed 1 unit of blood was ordered. -Chronic pulmonary embolism Stop eliquis -Diabetes mellitus type 2, chronic on oral hypoglycemic. Hold oral hypoglycemic. Follow Accu-Cheks. -Hyperlipidemia Lipitor - CK D STAGE III likely nephrosclerosis Follow renal function -Advanced rheumatoid arthritis Methotrexate. Prednisone. Sloan. -Essential hypertension Tenormin, lisinopril -Chronic rheumatoid arthritis Chronically on prednisone and methotrexate. stress dose of IV hydrocortisone- changed to by mouth prednisone -Peripheral neuropathy from Dr. somers. Patient is numbness tingling lower extremity. Neurontin -Full code Transfuse 1 unit of blood. All hold oral hypoglycemic. Follow Accu-Cheks. Resume home medications. PPI. Follow labs. Care was discussed with the patient and family at the bedside. GI services not available hospital. Consult general surgery. Past Medical History Past Medical History: Diabetes Mellitus, Hyperlipidemia, Hypertension, Pulmonary Embolus (PE), Rheumatoid Arthritis (RA) Additional Past Medical History / Comment(s): aortic aneurysm, empyema, colitis, History of Any Multi-Drug Resistant Organisms: None Reported Past Surgical History: Hernia Repair Additional Past Surgical History / Comment(s): hemorrhoidectomy, surgeries for sebaceous cysts Past Anesthesia/Blood Transfusion Reactions: Motion Sickness Past Psychological History: No Psychological Hx Reported Additional Psychological History / Comment(s): and lives with his . Retired from the [employer]. 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 None of the animals have been ill, no other family members warner ve been ill. Patient's has only had a cold. 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 No International travel. Was in the [employer] without international travel. Tobacco smoker stopping in his 30s. No significant alcohol use. Smoking Status: Never smoker Past Alcohol Use History: None Reported Additional Past Alcohol Use History / Comment(s): smoked age [age] 1ppd Past Drug Use History: None Reported - Past Family History Son(s) Family Medical History: Cancer Additional Family Medical History / Comment(s): brain cancer Brother(s) Family Medical History: Cancer Additional Family Medical History / Comment(s): colon cancer Sister(s) Family Medical History: Cancer Medications and Allergies Home Medications Medication Instructions Recorded Confirmed Type Aspirin [Adult Low Dose Aspirin EC] 81 mg PO DAILY 05/19/17 05/09/22 History Atorvastatin [Lipitor] 20 mg PO DAILY 05/19/17 05/09/22 History atenoloL [Tenormin] 50 mg PO BID 05/19/17 05/09/22 History metFORMIN HCL [Glucophage] 500 mg PO BID 05/19/17 05/09/22 History Calcium Carbonate [Calcium] 600 mg PO DAILY 02/01/22 05/09/22 History Cholecalciferol [Vitamin D3 (25 25 mcg PO DAILY 02/01/22 05/09/22 History Mcg = 1000 Iu)] Empagliflozin [Jardiance] 25 mg PO DAILY 02/01/22 05/09/22 History Folic Acid 1 mg PO DAILY 02/01/22 05/09/22 History Glimepiride [Amaryl] 2 mg PO W/BRKFST 02/01/22 05/09/22 History lisinopriL 30 mg PO DAILY 02/01/22 05/09/22 History metHOTREXate sodium [Methotrexate] 25 mg PO HEIN 02/01/22 05/09/22 History Pantoprazole [Protonix] 40 mg PO AC-BID #60 tab 02/07/22 05/09/22 Rx Apixaban [Eliquis] 5 mg PO BID 04/03/22 05/09/22 History Gabapentin 600 mg PO TID 04/03/22 05/09/22 History HYDROcodone/APAP 7.5-325MG [[place] 2 tab PO QID PRN 04/03/22 05/09/22 History 7.5-325] amLODIPine [Norvasc] 10 mg PO DAILY 04/03/22 05/09/22 History Acetaminophen [Tylenol 8 Hour] 650 mg PO Q4H PRN 05/09/22 05/09/22 History polyethylene glycoL 3350 [Miralax] 17 gm PO DAILY PRN 05/09/22 05/09/22 History predniSONE 10 mg PO BID 05/09/22 05/09/22 History Allergies Allergy/AdvReac Type Severity Reaction Status Date / Time No Known Allergies Allergy Verified 05/09/22 12:57 Physical Exam Vitals: Vital Signs Temp Pulse Pulse Resp BP BP Pulse Ox 11/10/22 16:35 97.8 F 95 16 134/72 97 05/09/22 16:11 94 18 96 05/09/22 15:32 98.1 F 95 18 150/88 05/09/22 15:00 95 18 147/106 95 05/09/22 14:00 97.9 F 97 18 151/105 05/09/22 13:40 98.6 F 94 18 138/76 05/09/22 13:30 98.7 F 96 18 136/81 05/09/22 13:00 96 18 138/81 94 L 05/09/22 12:00 96 18 143/86 95 05/09/22 11:00 98 18 142/78 94 L 05/09/22 10:40 95 18 142/88 96 05/09/22 09:15 97.9 F 94 20 146/88 96 Intake and Output 05/09/22 05/09/22 05/09/22 06:59 14:59 22:59 Intake Total 0 276 Output Total 300 Balance -300 276 Intake: Blood Product 0 276 Rc Pheresis As-3 Unit 0 276 [id number] Output: Urine 300 Other: Voiding Method Toilet Urinal Weight 74.843 kg 74.843 kg Results CBC & Chem 7: 05/09/22 09:51 05/09/22 09:51 Labs: Abnormal Lab Results - Last 24 Hours (Table) 05/09/22 05/09/22 05/09/22 Range/Units 09:51 09:51 09:51 RBC 2.00 L (4.30-5.90) m/uL Hgb 6.5 L* D (13.0-17.5) gm/dL Hct 20.5 L (39.0-53.0) % MCV 102.3 H (80.0-100.0) fL RDW 19.9 H (11.5-15.5) % Chloride 109 H (98-107) mmol/L Carbon Dioxide 21 L (22-30) mmol/L BUN 36 H (9-20) mg/dL Glucose 217 H (74-99) mg/dL Total Protein 6.0 L (6.3-8.2) g/dL Albumin 2.8 L (3.5-5.0) g/dL Lipase 332 H (23-300) U/L Crossmatch See Detail Thrombosis Risk Factor Assmnt - Choose All That Apply Each Factor Represents 1 point: Abnormal pulmonary function (COPD) Each Risk Factor Represents 3 Points: History of DVT/PE Thrombosis Risk Factor Assessment Total Risk Factor Score: 4 Thrombosis Risk Factor Assessment Level: Moderate Risk
[2022-05-09 19:30] LABS: Anisocytosis Moderate; HCT 21.3 % (39.0-53.0); Hypochromasia Marked; MCH 32.1 pg (25.0-35.0); MCHC 32.2 g/dL (31.0-37.0); MCV 99.9 fL (80.0-100.0); Macrocytosis Moderate; Mean Platelet Volume 8.4; Platelet Count 234 k/uL (150-450); Poikilocytosis Slight; RBC 2.13 m/uL (4.30-5.90); RDW 20.3 % (11.5-15.5); WBC 6.5 k/uL (3.8-10.6)
[2022-05-09 19:45] LABS: HGB 6.8 gm/dL (13.0-17.5)
[2022-05-09 19:48] LABS: Glucose,Whole Blood 190 mg/dL (70-110)
[2022-05-09] MEDS: GABAPENTIN 300 MG CAP PO SCH (20:13)
[2022-05-09] MEDS: INSULIN DETEMIR (LEVEMIR) 100 UNIT/ML SYR SQ SCH (20:13)
[2022-05-09] MEDS: PANTOPRAZOLE 40 MG/10 ML VIAL IVP SCH (20:13)
[2022-05-09] MEDS: predniSONE 10 MG TAB PO SCH (20:13)
[2022-05-09] MEDS: atenoloL 50 MG TAB PO SCH (20:13)
--- NOTE | 2022-05-09 21:11 | XR ---
EXAMINATION TYPE: XR chest 1V DATE OF EXAM: 05/09/2022 COMPARISON: 02/03/2022 HISTORY: Short of breath TECHNIQUE: FINDINGS: There is coarse interstitial density in the lungs. There is interstitial edema. There are c hest leads. There is some fullness and density lateral left lung base. IMPRESSION: There is interstitial pulmonary edema with increasing infiltrate in the left lower lobe c ompared to old exam. There is likely small pleural effusions. Heart failure is possible.
[2022-05-10 01:18] LABS: Anisocytosis Moderate; HCT 22.9 % (39.0-53.0); HGB 7.4 gm/dL (13.0-17.5); Hypochromasia Marked; MCH 30.9 pg (25.0-35.0); MCHC 32.4 g/dL (31.0-37.0); MCV 95.4 fL (80.0-100.0); Macrocytosis Slight; Mean Platelet Volume 8.2; Platelet Count 233 k/uL (150-450); Poikilocytosis Slight; RDW 21.8 % (11.5-15.5); WBC 6.3 k/uL (3.8-10.6)
[2022-05-10 06:06] LABS: Glucose,Whole Blood 107 mg/dL (70-110)
[2022-05-10] MEDS: INSULIN ASPART (NovoLOG) 100 UNIT/ML VIAL SQ SCH ×3 (06:08→17:02)
[2022-05-10] MEDS: SODIUM CHLORIDE 0.9% 1,000 ML IV SCH (07:24)
[2022-05-10] MEDS: PANTOPRAZOLE 40 MG/10 ML VIAL IVP SCH ×2 (07:29→20:33)
[2022-05-10] MEDS: atenoloL 50 MG TAB PO SCH ×2 (07:29→20:14)
[2022-05-10] MEDS: ATORVASTATIN 20 MG TAB PO SCH (07:29)
[2022-05-10] MEDS: GABAPENTIN 300 MG CAP PO SCH ×3 (07:30→20:31)
[2022-05-10] MEDS: FOLIC ACID 1 MG TAB PO SCH (07:30)
[2022-05-10] MEDS: predniSONE 10 MG TAB PO SCH ×2 (07:30→20:14)
[2022-05-10] MEDS: DAPAGLIFLOZIN PROPANEDIOL 10 MG TABLET PO SCH (07:31)
[2022-05-10 07:55] LABS: Anisocytosis Moderate; HCT 24.5 % (39.0-53.0); HGB 7.8 gm/dL (13.0-17.5); Hypochromasia Marked; MCH 30.6 pg (25.0-35.0); MCHC 31.8 g/dL (31.0-37.0); Macrocytosis Moderate; Mean Platelet Volume 8.1; Platelet Count 249 k/uL (150-450); Poikilocytosis Slight; RBC 2.55 m/uL (4.30-5.90); RDW 22.4 % (11.5-15.5); WBC 6.8 k/uL (3.8-10.6)
[2022-05-10 08:05] LABS: Calcium 8.9 mg/dL (8.4-10.2); Potassium 4.6 mmol/L (3.5-5.1)
--- NOTE | 2022-05-10 10:03 | P.CONS ---
History of Present Illness - Reason for Consult Consult date: 05/10/22 wound care - History of Present Illness This is a 77-year-old patient being seen on [facility] for nonhealing ulcerations to the coccyx. Patient has a stage II pressure ulcer measuring approximate 1 x 0.6 x 0.2 cm with granulation and minimal slough noted wound edges are attached to the wound base maceration noted to the periwound. Patient also has a left foot burn that occurred approximately 2 weeks ago he dropped hot water on his foot. He is not putting any dressings on it. She past medical history significant for diabetes, hyperlipidemia, hypertension, pulmonary embolism. Review Of Systems: Constitutional: No fever, no chills, no night sweats. No weight change. No weakness, fatigue or lethargy. No daytime sleepiness. Integumentary:reports wounds, no lesions. No rash or pruritus. No unusual bruising. No change in hair or nails. Physical exam: General Appearance: Alert, cooperative, no distress, appears stated age. Skin: See HPI all other Skin color, texture, tugor normal, no rashes or lesions. Neurologic: Alert oriented x3 Assessment: 1. Stage II pressure ulcer coccyx 2. Burn to left dorsal foot 3. Diabetes with skin ulceration Plan: 1. Left dorsal foot: Apply Silvadene to the site daily 2. Stage II pressure ulcer coccyx: Apply honey alginate, saline moistened gauze and border foam to the site. Change Friday. Thank you for the consultation any questions to contact the wound care center DNP note has been reviewed and discussed with Dr. Gutierrez and the impression and plan of care has been directed as dictated. Past Medical History Past Medical History: Diabetes Mellitus, Hyperlipidemia, Hypertension, Pulmonary Embolus (PE), Rheumatoid Arthritis (RA) Additional Past Medical History / Comment(s): aortic aneurysm, empyema, colitis, History of Any Multi-Drug Resistant Organisms: None Reported Past Surgical History: Hernia Repair Additional Past Surgical History / Comment(s): hemorrhoidectomy, surgeries for sebaceous cysts Past Anesthesia/Blood Transfusion Reactions: Motion Sickness Past Psychological History: No Psychological Hx Reported Additional Psychological History / Comment(s): and lives with his . Retired from the [employer]. 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 None of the animals have been ill, no other family members have been ill. Patient's has only had a cold. 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 No International travel. Was in the [employer] without international travel. Tobacco smoker stopping in his 30s. No significant alcohol use. Smoking Status: Never smoker Past Alcohol Use History: None Reported Additional Past Alcohol Use History / Comment(s): smoked age [age] 1ppd Past Drug Use History: None Reported - Past Family History Son(s) Family Medical History: Cancer Additional Family Medical History / Comment(s): brain cancer Brother(s) Family Medical History: Cancer Additional Family Medical History / Comment(s): colon cancer Sister(s) Family Medical History: Cancer Medications and Allergies Home Medications Medication Instructions Recorded Confirmed Type Aspirin [Adult Low Dose Aspirin EC] 81 mg PO DAILY 05/19/17 05/09/22 History Atorvastatin [Lipitor] 20 mg PO DAILY 05/19/17 05/09/22 History atenoloL [Tenormin] 50 mg PO BID 05/19/17 05/09/22 History metFORMIN HCL [Glucophage] 500 mg PO BID 05/19/17 05/09/22 History Calcium Carbonate [Calcium] 600 mg PO DAILY 02/01/22 05/09/22 History Cholecalciferol [Vitamin D3 (25 25 mcg PO DAILY 02/01/22 05/09/22 History Mcg = 1000 Iu)] Empagliflozin [Jardiance] 25 mg PO DAILY 02/01/22 05/09/22 History Folic Acid 1 mg PO DAILY 02/01/22 05/09/22 History Glimepiride [Amaryl] 2 mg PO W/BRKFST 02/01/22 05/09/22 History lisinopriL 30 mg PO DAILY 02/01/22 05/09/22 History metHOTREXate sodium [Methotrexate] 25 mg PO HEIN 02/01/22 05/09/22 History Pantoprazole [Protonix] 40 mg PO AC-BID #60 tab 02/07/22 05/09/22 Rx Apixaban [Eliquis] 5 mg PO BID 04/03/22 05/09/22 History Gabapentin 600 mg PO TID 04/03/22 05/09/22 History HYDROcodone/APAP 7.5-325MG [[place] 2 tab PO QID PRN 04/03/22 05/09/22 History 7.5-325] amLODIPine [Norvasc] 10 mg PO DAILY 04/03/22 05/09/22 History Acetaminophen [Tylenol 8 Hour] 650 mg PO Q4H PRN 05/09/22 05/09/22 History polyethylene glycoL 3350 [Miralax] 17 gm PO DAILY PRN 05/09/22 05/09/22 History predniSONE 10 mg PO BID 05/09/22 05/09/22 History Allergies Allergy/AdvReac Type Severity Reaction Status Date / Time No Known Allergies Allergy Verified 05/09/22 12:57 Physical Exam Vitals: Vital Signs Temp Pulse Pulse Resp BP BP Pulse Ox 05/10/22 07:23 97.9 F 88 16 149/79 96 05/10/22 04:00 92 16 152/72 91 L 05/09/22 23:29 98.8 F 98 16 156/82 90 L 05/09/22 21:49 99.0 F 95 16 140/74 98 05/09/22 21:29 99.4 F 93 16 146/47 05/09/22 21:28 99.4 F 96 18 149/84 05/09/22 20:00 99.2 F 90 16 133/70 98 05/09/22 16:35 97.8 F 95 16 134/72 97 05/09/22 16:11 94 18 96 05/09/22 15:32 98.1 F 95 18 150/88 05/09/22 15:00 95 18 147/106 95 05/09/22 14:00 97.9 F 97 18 151/105 05/09/22 13:40 98.6 F 94 18 138/76 05/09/22 13:30 98.7 F 96 18 136/81 05/09/22 13:00 96 18 138/81 94 L 05/09/22 12:00 96 18 143/86 95 05/09/22 11:00 98 18 142/78 94 L 05/09/22 10:40 95 18 142/88 96 Intake and Output 05/09/22 05/10/22 05/10/22 22:59 06:59 14:59 Intake Total 756 1100 130 Output Total 1200 Balance 756 -100 130 Intake: IV 10 Invasive Line 1 10 Oral 480 480 120 Blood Product 276 620 Rc As-1 Unit 0 310 [id number] Pheresis As-3 Unit 276 [id number] Output: Urine 1200 Other: Voiding Method Urinal Urinal Urinal Weight 74.843 kg Results CBC & Chem 7: 05/10/22 07:05 05/10/22 07:05 Labs: Abnormal Lab Results - Last 24 Hours (Table) 05/09/22 05/09/22 05/09/22 Range/Units 09:51 09:51 09:51 RBC 2.00 L (4.30-5.90) m/uL Hgb 6.5 L* D (13.0-17.5) gm/dL Hct 20.5 L (39.0-53.0) % MCV 102.3 H (80.0-100.0) fL RDW 19.9 H (11.5-15.5) % Chloride 109 H (98-107) mmol/L Carbon Dioxide 21 L (22-30) mmol/L BUN 36 H (9-20) mg/dL Glucose 217 H (74-99) mg/dL POC Glucose (mg/dL) (70-110) mg/dL Total Protein 6.0 L (6.3-8.2) g/dL Albumin 2.8 L (3.5-5.0) g/dL Lipase 332 H (23-300) U/L Crossmatch See Detail 05/09/22 05/09/22 05/10/22 Range/Units 19:05 19:46 00:49 RBC 2.13 L 2.40 L (4.30-5.90) m/uL Hgb 6.8 L* 7.4 L (13.0-17.5) gm/dL Hct 21.3 L 22.9 L (39.0-53.0) % MCV (80.0-100.0) fL RDW 20.3 H 21.8 H (11.5-15.5) % Chloride (98-107) mmol/L Carbon Dioxide (22-30) mmol/L BUN (9-20) mg/dL Glucose (74-99) mg/dL POC Glucose (mg/dL) 190 H (70-110) mg/dL Total Protein (6.3-8.2) g/dL Albumin (3.5-5.0) g/dL Lipase (23-300) U/L Crossmatch 05/10/22 05/10/22 Range/Units 07:05 07:05 RBC 2.55 L (4.30-5.90) m/uL Hgb 7.8 L (13.0-17.5) gm/dL Hct 24.5 L (39.0-53.0) % MCV (80.0-100.0) fL RDW 22.4 H (11.5-15.5) % Chloride 110 H (98-107) mmol/L Carbon Dioxide (22-30) mmol/L BUN 31 H (9-20) mg/dL Glucose (74-99) mg/dL POC Glucose (mg/dL) (70-110) mg/dL Total Protein (6.3-8.2) g/dL Albumin (3.5-5.0) g/dL Lipase (23-300) U/L Crossmatch Assessment and Plan (1) Pressure ulcer of coccygeal region, stage 2 Current Visit: Yes Status: Acute Code(s): L89.152 - PRESSURE ULCER OF SACRAL REGION, STAGE 2 SNOMED Code(s): 392128763 (2) Burn of left foot Current Visit: Yes Status: Acute Code(s): T25.022A - BURN OF UNSPECIFIED DEGREE OF LEFT FOOT, INITIAL ENCOUNTER SNOMED Code(s): 02408102034424918 (3) Type 2 diabetes mellitus with other skin ulcer Current Visit: Yes Status: Acute Code(s): E11.622 - TYPE 2 DIABETES MELLITUS WITH OTHER SKIN ULCER; L98.499 - NON-PRESSURE CHRONIC ULCER OF SKIN OF SITES W UNSP SEVERITY SNOMED Code(s): 241016461
[2022-05-10 10:39] LABS: Metamyelocytes # (M) 0.07 k/uL (0); Metamyelocytes % 1 %; Nucleated Red Blood Cells 0 /100 WBC (0-0)
[2022-05-10 10:41] LABS: Lymphocytes # (M) 1.36 k/uL (1.0-4.8); Mixed Population RBC Present; Monocytes # (M) 0.48 k/uL (0-1.0); Neutrophils # (M) 4.96 k/uL (1.3-7.7); Neutrophils % (M) 73 %; Polychromasia Present; Total Cells Counted 200
[2022-05-10 10:42] LABS: Rouleaux Present
[2022-05-10 11:34] LABS: Glucose,Whole Blood 176 mg/dL (70-110)
[2022-05-10 11:39] VITALS: BMI 25.0
[2022-05-10] MEDS ORDERED: LACTATED RINGERS 1,000 ML IV SCH (11:53)
--- NOTE | 2022-05-10 13:16 | P.PN ---
Progress Note - Text Progress Note Date: 05/10/22 Chief Complaint: Dark stools Hospital course 76-year-old man , follows with Dr. iPke with chronic stable medical conditions include hypertension, hyperlipidemia, diabetes, rheumatoid arthritis on chronic steroids . January 2022 had PE for which patient is on eliquis. Patient now presents with his . For 1 month patient been having black stools. Did not tell anybody. Seen by the yesterday. She mentioned this to her corporate safety manager and patient was sent in here. Patient also has a sacral pressure wound. Normally needs of Mckeon's to stand up and has been more unsteady and falling recently. Feeling weak and tired. Appetite is fair. No fever no chills. No abdominal pain. 05/10/2022: Seen by surgery. 4 colonoscope EGD on Friday. Diet advanced to regular.. No further dark stools. If hemoglobin remains good, home tomorrow. Come back for outpatient endoscopy. Seen by wound care team. Active Medications Hydrocodone Bitart/Acetaminophen (Hydrocodone/Apap 7.5-325mg 1 Each Tab) 2 each PO QID PRN PRN Reason: Pain Last Admin: 05/10/22 05:09 Dose: 2 each Atenolol (Atenolol 50 Mg Tab) 50 mg PO BID [facility] Last Admin: 05/10/22 07:29 Dose: 50 mg Atorvastatin Calcium (Atorvastatin 20 Mg Tab) 20 mg PO DAILY [facility] Last Admin: 05/10/22 07:29 Dose: 20 mg Dapagliflozin (Dapagliflozin Propanediol 10 Mg Tablet) 10 mg PO DAILY [facility] Last Admin: 05/10/22 07:31 Dose: 10 mg Dextrose/Water (Dextrose 50% Syringe 50 Ml) 25 ml IVP PER PROTOCOL PRN; Protocol PRN Reason: Hypoglycemia Dextrose/Water (Dextrose 50% Syringe 50 Ml) 50 ml IVP PER PROTOCOL PRN; Protocol PRN Reason: Hypoglycemia Folic Acid (Folic Acid 1 Mg Tab) 1 mg PO DAILY [facility] Last Admin: 05/10/22 07:30 Dose: 1 mg Gabapentin (Gabapentin 300 Mg Cap) 600 mg PO TID [facility] Last Admin: 05/10/22 07:30 Dose: 600 mg Sodium Chloride (Saline 0.9%) 1,000 mls @ 20 mls/hr IV .Q24H [facility] Last Admin: 05/10/22 07:24 Dose: Not Given Lactated Ringer's (Lactated Ringers) 1,000 mls @ 20 mls/hr IV .Q24H [facility] Last Admin: 05/10/22 13:00 Dose: Not Given Insulin Aspart (Insulin Aspart (Novolog) 100 Unit/Ml Vial) 0 unit SQ AC-TID [facility]; Protocol Last Admin: 05/10/22 13:00 Dose: Not Given Insulin Detemir (Insulin Detemir (Levemir) 100 Unit/Ml Syr) 10 unit SQ HS [facility] Last Admin: 05/09/22 20:13 Dose: 10 unit Methotrexate (Methotrexate Sodium 2.5 Mg Tab) 25 mg PO HEIN [facility] Naloxone HCl (Naloxone 0.4 Mg/Ml 1 Ml Vial) 0.2 mg IV Q2M PRN PRN Reason: Opioid Reversal Pantoprazole Sodium (Pantoprazole 40 Mg/10 Ml Vial) 40 mg IVP BID [facility] Last Admin: 05/10/22 07:29 Dose: 40 mg Prednisone (Prednisone 10 Mg Tab) 10 mg PO BID [facility] Last Admin: 05/10/22 07:30 Dose: 10 mg Silver Sulfadiazine (Silver Sulfadiazine 1% Cream 25 Gm Tube) 1 applic TOPICAL DAILY [facility]; Protocol Past medical history to include: Pulmonary embolism January 2022, diabetes mellitus, hyperlipidemia, CK D stage III, essential hypertension, chronic rheumatoid arthritis, empyema, colitis Social history: Lives with his . Retired from [employer]. Smoked for 34 years 1 pack a day stopped about 26 years ago. Physical examination: VITAL SIGNS: 97.9, 98, 16, 149.79, 96% room air GENERAL: Reclining, comfortable EYES: Pupils equal. Conjunctiva normal. HEENT: External appearance of nose and ears normal, oral cavity grossly normal. NECK: JVD not raised; masses not palpable. HEART: First and second heart sounds are normal; no edema. LUNGS: Respiratory rate normal; clear to auscultation. ABDOMEN: Soft, nontender, liver spleen not palpable, no masses palpable. PSYCH: Alert and oriented x3; mood and affect normal. MUSCULOSKELETAL:No Clubbing/cyanosis;muscles-grossly intact, evidence of arthritis in the joints Dermatological: Wound of the left foot and sacrum INVESTIGATIONS, reviewed in the clinical context: 05/10/2022: WBC 6.8 globin 7.8 potassium 4.6 creatinine 1.0 WBC 5.8 hemoglobin 6.5 platelets 240 potassium 4.8 bicarbonate 21 BUN 36 creatinine 1.23 Stool occult blood positive Assessment and plan: -Acute GI bleed in a patient who takes eliquis. Has been having dark stools for a month. Symptomatic. Weak and tired. Stop eliquis. Diet advanced per surgery. [address] Robertson on Friday. PPI -Acute severe blood loss anemia from GI bleed Patient received 2 units of blood. -Chronic pulmonary embolism Stop eliquis -Diabetes mellitus type 2, chronic on oral hypoglycemic. Hold oral hypoglycemic. Follow Accu-Cheks. -Hyperlipidemia Lipitor - CK D STAGE III likely nephrosclerosis Follow renal function -Advanced rheumatoid arthritis Methotrexate. Prednisone. Renovo. -Essential hypertension Tenormin, lisinopril -Chronic rheumatoid arthritis Chronically on prednisone and methotrexate. stress dose of IV hydrocortisone- changed to by mouth prednisone -Peripheral neuropathy from rheumatoid arthritis. As numbness tingling lower extremity. Neurontin -Full code Patient hemoglobin and crit checked tomorrow morning. Possibly DC tomorrow. Outpatient EGD colonoscopy.
--- NOTE | 2022-05-10 13:31 | P.PN ---
Subjective Progress Note Date: 05/10/22 CHIEF COMPLAINT: GI bleed with black stool and low hemoglobin HISTORY OF PRESENT ILLNESS: Patient reports no further black stools. He denies any abdominal pain. He denies any nausea or vomiting. Patient had a low hemoglobin 6.5 outpatient. He is on Eliquis for DVT outpatient. Patient tolerating full liquid diet. Hemoglobin is up from 7.4-7.8. Patient did receive 2 units of blood yesterday for hemoglobin 6.5. Afebrile. Patient seen and examined with Dr. banda PHYSICAL EXAM: VITAL SIGNS: Reviewed. GENERAL: Well-developed in no acute distress. HEENT: No sclera icterus. Extraocular movements grossly intact. Moist buccal mucosa. Head is atraumatic, normocephalic. ABDOMEN: Soft. Nondistended. Nontender. NEUROLOGIC: Alert and oriented. Cranial nerves II through XII grossly intact. ASSESSMENT: 1. Acute GI bleed with dark stools 2. Acute blood loss anemia 3. Anticoagulation use PLAN: -Patient can be discharged from surgical standpoint with outpatient EGD and colonoscopy -Advance diet to regular -Continue PPI -Continue to hold Eliquis Physician Mid Level Practitioner note has been reviewed by physician. Signing provider agrees with the documented findings, assessment, and plan of care. Objective - Vital Signs Vital signs: Vital Signs Temp 97.9 F 05/10/22 07:23 Pulse 88 05/10/22 07:23 Resp 16 05/10/22 07:23 BP 149/79 05/10/22 07:23 Pulse Ox 96 05/10/22 07:23 FiO2 Intake & Output 05/09/22 05/10/22 05/10/22 18:59 06:59 18:59 Intake Total 276 1580 130 Output Total 300 1200 0 Balance -24 380 130 Weight 74.843 kg 74.843 kg Intake: IV 10 Invasive Line 1 10 Oral 960 120 Blood Product 276 620 Rc As-1 Unit 310 [id number] Rc Pheresis As-3 Unit 276 [id number] Output: Urine 300 1200 0 Stool 0 Urine/Stool Mix 0 Other: Voiding Method Toilet Urinal Urinal Urinal # Voids 0 - Labs CBC & Chem 7: 05/10/22 07:05 05/10/22 07:05 Labs: Abnormal Lab Results - Last 24 Hours (Table) 05/09/22 05/09/22 05/09/22 Range/Units 09:51 19:05 19:46 RBC 2.13 L (4.30-5.90) m/uL Hgb 6.8 L* (13.0-17.5) gm/dL Hct 21.3 L (39.0-53.0) % RDW 20.3 H (11.5-15.5) % Metamyelocytes # (Man) (0) k/uL Chloride (98-107) mmol/L BUN (9-20) mg/dL POC Glucose (mg/dL) 190 H (70-110) mg/dL Crossmatch See Detail 05/10/22 05/10/22 05/10/22 Range/Units 00:49 07:05 07:05 RBC 2.40 L 2.55 L (4.30-5.90) m/uL Hgb 7.4 L 7.8 L (13.0-17.5) gm/dL Hct 22.9 L 24.5 L (39.0-53.0) % RDW 21.8 H 22.4 H (11.5-15.5) % Metamyelocytes # (Man) 0.07 H (0) k/uL Chloride 110 H (98-107) mmol/L BUN 31 H (9-20) mg/dL POC Glucose (mg/dL) (70-110) mg/dL Crossmatch 05/10/22 Range/Units 11:33 RBC (4.30-5.90) m/uL Hgb (13.0-17.5) gm/dL Hct (39.0-53.0) % RDW (11.5-15.5) % Metamyelocytes # (Man) (0) k/uL Chloride (98-107) mmol/L BUN (9-20) mg/dL POC Glucose (mg/dL) 176 H (70-110) mg/dL Crossmatch
[2022-05-10 16:47] LABS: Glucose,Whole Blood 222 mg/dL (70-110)
[2022-05-10 19:43] LABS: Glucose,Whole Blood 179 mg/dL (70-110)
[2022-05-10] MEDS: INSULIN DETEMIR (LEVEMIR) 100 UNIT/ML SYR SQ SCH (20:14)
[2022-05-11 06:01] LABS: Glucose,Whole Blood 167 mg/dL (70-110)
[2022-05-11] MEDS: INSULIN ASPART (NovoLOG) 100 UNIT/ML VIAL SQ SCH (06:02)
[2022-05-11 09:04] LABS: Anisocytosis Moderate; HCT 27.7 % (39.0-53.0); HGB 8.6 gm/dL (13.0-17.5); Hypochromasia Marked; MCH 29.6 pg (25.0-35.0); MCHC 30.9 g/dL (31.0-37.0); MCV 95.8 fL (80.0-100.0); Macrocytosis Moderate; Mean Platelet Volume 8.6; Platelet Count 264 k/uL (150-450); Poikilocytosis Slight; RBC 2.89 m/uL (4.30-5.90); RDW 22.4 % (11.5-15.5); WBC 8.5 k/uL (3.8-10.6)
[2022-05-11] MEDS: GABAPENTIN 300 MG CAP PO SCH (09:47)
[2022-05-11] MEDS: atenoloL 50 MG TAB PO SCH (09:47)
[2022-05-11] MEDS: DAPAGLIFLOZIN PROPANEDIOL 10 MG TABLET PO SCH (09:47)
[2022-05-11] MEDS: PANTOPRAZOLE 40 MG/10 ML VIAL IVP SCH (09:48)
[2022-05-11] MEDS: ATORVASTATIN 20 MG TAB PO SCH (09:48)
[2022-05-11] MEDS: FOLIC ACID 1 MG TAB PO SCH (09:48)
[2022-05-11] MEDS: predniSONE 10 MG TAB PO SCH (09:48)
[2022-05-11 10:47] VITALS: BP 145/45; PULSE 86; RESP 16; TEMP 97.7
[2022-05-11 11:38] LABS: Glucose,Whole Blood 163 mg/dL (70-110)
[2022-05-11] MEDS ORDERED: amLODIPine 10 MG TAB PO SCH (11:45)
[2022-05-11 13:12] LABS: Lymphocytes # (M) 1.02 k/uL (1.0-4.8); Monocytes # (M) 0.17 k/uL (0-1.0); Neutrophils # (M) 7.31 k/uL (1.3-7.7); Neutrophils % (M) 86 %; Nucleated Red Blood Cells 0 /100 WBC (0-0); Total Cells Counted 100
[2022-05-11 13:14] LABS: Polychromasia Present
--- NOTE | 2022-05-11 15:55 | P.DS ---
Providers Date of admission: 05/09/22 12:15 Expected date of discharge: 05/11/22 Attending physician: Aries Vincent Consults: 05/09/22 12:15 Consult Physician Urgent Consulting Provider: Vance Robertson Consult Reason/Comments: acute gi bleed Do you want consulting provider notified?: Already Contacted Primary care physician: Karl Pike [facility] Course: Chief Complaint: Dark stools Hospital course 76-year-old man , follows with Dr. Pike with chronic stable medical conditions include hypertension, hyperlipidemia, diabetes, rheumatoid arthritis on chronic steroids . January 2022 had PE for which patient is on eliquis. Patient now presents with his . For 1 month patient been having black stools. Did not tell anybody. Seen by the yesterday. She mentioned this to her printed circuit board pcb draftsman and patient was sent in here. Patient also has a sacral pressure wound. Normally needs of Mckeon's to stand up and has been more unsteady and falling recently. Feeling weak and tired. Appetite is fair. No fever no chills. No abdominal pain. 05/10/2022: Seen by surgery. 4 colonoscope EGD on Friday. Diet advanced to regular.. No further dark stools. If hemoglobin remains good, home tomorrow. Come back for outpatient endoscopy. Seen by wound care team. 05/11/2022: Patient stable. No further bleeding. We'll have outpatient EGD fl uoroscopy by Dr. Robertson. Hemoglobin stable. Discussed with patient. He did remain off eliquis and aspirin. Past medical history to include: Pulmonary embolism January 2022, diabetes mellitus, hyperlipidemia, CK D stage III, essential hypertension, chronic rheumatoid arthritis, empyema, colitis Social history: Lives with his . Retired from [employer]. Smoked for 34 years 1 pack a day stopped about 26 years ago. Physical examination: VITAL SIGNS: 97.7, 86, 16, 1 45 x 45, 98% room air GENERAL: Sitting up, comfortable EYES: Pupils equal. Conjunctiva normal. HEENT: External appearance of nose and ears normal, oral cavity grossly normal. NECK: JVD not raised; masses not palpable. HEART: First and second heart sounds are normal; no edema. LUNGS: Respiratory rate normal; clear to auscultation. ABDOMEN: Soft, nontender, liver spleen not palpable, no masses palpable. PSYCH: Alert and oriented x3; mood and affect normal. MUSCULOSKELETAL:No Clubbing/cyanosis;muscles-grossly intact, evidence of arthritis in the joints Dermatological: Wound of the left foot and sacrum INVESTIGATIONS, reviewed in the clinical context: 05/11/2022: Hemoglobin 8.6 05/10/2022: WBC 6.8 globin 7.8 potassium 4.6 creatinine 1.0 WBC 5.8 hemoglobin 6.5 platelets 240 potassium 4.8 bicarbonate 21 BUN 36 creatinine 1.23 Stool occult blood positive Assessment and plan: -Acute GI bleed in a patient who takes eliquis. Has been having dark stools for a month. Symptomatic. Weak and tired. Stop eliquis and aspirin. Diet advanced per surgery. [address] Robertson outpatient. PPI -Acute severe blood loss anemia from GI bleed Patient received 2 units of blood. -Chronic pulmonary embolism Stop eliquis -Diabetes mellitus type 2, chronic on oral hypoglycemic. Hold Amaryl. Follow Accu-Cheks. -Hyperlipidemia Lipitor - CK D STAGE III likely nephrosclerosis Follow renal function -Advanced rheumatoid arthritis Methotrexate. Prednisone. Esko. -Essential hypertension Tenormin, lisinopril-discontinue -Chronic rheumatoid arthritis Chronically on prednisone and methotrexate. -Peripheral neuropathy from rheumatoid arthritis. As numbness tingling lower extremity. Neurontin -Full code Disposition: Home Plan - Discharge Summary Discharge Rx Participant: Yes New Discharge Prescriptions: New Peg 3350 (236 gm/Btl) + Lytes [Golytely Lavage] 4,000 ml PO DIRECTED #1 each Continue Atorvastatin [Lipitor] 20 mg PO DAILY atenoloL [Tenormin] 50 mg PO BID metFORMIN HCL [Glucophage] 500 mg PO BID Folic Acid 1 mg PO DAILY Gabapentin 600 mg PO TID metHOTREXate sodium [Methotrexate] 25 mg PO HEIN Empagliflozin [Jardiance] 25 mg PO DAILY Cholecalciferol [Vitamin D3 (25 Mcg = 1000 Iu)] 25 mcg PO DAILY Calcium Carbonate [Calcium] 600 mg PO DAILY Pantoprazole [Protonix] 40 mg PO AC-BID #60 tab HYDROcodone/APAP 7.5-325MG [Esko 7.5-325] 2 tab PO QID PRN PRN Reason: Pain amLODIPine [Norvasc] 10 mg PO DAILY predniSONE 10 mg PO BID Acetaminophen [Tylenol 8 Hour] 650 mg PO Q4H PRN PRN Reason: Fever And/ Or Pain Discontinued Aspirin [Adult Low Dose Aspirin EC] 81 mg PO DAILY Glimepiride [Amaryl] 2 mg PO W/BRKFST Apixaban [Eliquis] 5 mg PO BID polyethylene glycoL 3350 [Miralax] 17 gm PO DAILY PRN PRN Reason: Constipation lisinopriL 30 mg PO DAILY Discharge Medication List Atorvastatin [Lipitor] 20 mg PO DAILY 05/19/17 [History] atenoloL [Tenormin] 50 mg PO BID 05/19/17 [History] metFORMIN HCL [Glucophage] 500 mg PO BID 05/19/17 [History] Calcium Carbonate [Calcium] 600 mg PO DAILY 02/01/22 [History] Cholecalciferol [Vitamin D3 (25 Mcg = 1000 Iu)] 25 mcg PO DAILY 02/01/22 [History] Empagliflozin [Jardiance] 25 mg PO DAILY 02/01/22 [History] Folic Acid 1 mg PO DAILY 02/01/22 [History] metHOTREXate sodium [Methotrexate] 25 mg PO HEIN 02/01/22 [History] Pantoprazole [Protonix] 40 mg PO AC-BID #60 tab 02/07/22 [Rx] Gabapentin 600 mg PO TID 04/03/22 [History] HYDROcodone/APAP 7.5-325MG [Esko 7.5-325] 2 tab PO QID PRN 04/03/22 [History] amLODIPine [Norvasc] 10 mg PO DAILY 04/03/22 [History] Acetaminophen [Tylenol 8 Hour] 650 mg PO Q4H PRN 05/09/22 [History] predniSONE 10 mg PO BID 05/09/22 [History] Peg 3350 (236 gm/Btl) + Lytes [Golytely Lavage] 4,000 ml PO DIRECTED #1 each 05/10/22 [Rx] Follow up Appointment(s)/Referral(s): Karl Pike DO [Primary Care Provider] - 1-2 days (Offices are closed, please call to make a post hospital follow up appointment.) [facility], [NON-STAFF] - Vance Robertson MD [STAFF PHYSICIAN] - 05/16/22 Patient Instructions/Handouts: Gastrointestinal Bleeding (DC), Colonoscopy (DC), Upper Endoscopy (DC) Activity/Diet/Wound Care/Special Instructions: Scheduling will contact patient with time and date of EGD and colonoscopy. Tentative date is , 05/16/2022 for EGD and Colonoscopy CONTINUE to HOLD Eliquis Discharge Disposition: HOME SELF-CARE
[2022-05-12] MEDS ORDERED: metHOTREXate sodium 2.5 MG TAB PO SCH (09:00)
== END 2022-05-11 13:25 | disposition home or self-care (01) ==
LOC: EC 09:05 → INTOOBSV 12:15 → 3SCARD 12:15 → UNDODISIN 05-11 13:25
PROVIDERS: ADMIT Hospitalist; ATTEND Hospitalist
DX: K92.2 Gastrointestinal hemorrhage, unspecified (principal); D62 Acute posthemorrhagic anemia; E11.22 Type 2 diabetes mellitus with diabetic chronic kidney disease; D63.1 Anemia in chronic kidney disease; I12.9 Hypertensive chronic kidney disease with stage 1 through stage 4 chronic kidney disease, or unspecified chronic kidney disease; N18.30 Chronic kidney disease, stage 3 unspecified; E78.5 Hyperlipidemia, unspecified; I27.82 Chronic pulmonary embolism; M06.9 Rheumatoid arthritis, unspecified; E11.622 Type 2 diabetes mellitus with other skin ulcer; L89.152 Pressure ulcer of sacral region, stage 2; E11.42 Type 2 diabetes mellitus with diabetic polyneuropathy; T25.022A Burn of unspecified degree of left foot, initial encounter; X11.8XXA Contact with other hot tap-water, initial encounter; Z86.718 Personal history of other venous thrombosis and embolism; Z87.891 Personal history of nicotine dependence; Z79.01 Long term (current) use of anticoagulants; Z79.52 Long term (current) use of systemic steroids; Z79.84 Long term (current) use of oral hypoglycemic drugs; Z79.899 Other long term (current) drug therapy; Z80.8 Family history of malignant neoplasm of other organs or systems; Z80.0 Family history of malignant neoplasm of digestive organs
CPT/HCPCS: 96372 ×3; 96376 ×3; 36430; 96374; 99285; 36415; 86900; 86901; 80053; 80048; 83605; 83690; 83735; 84484; 85025 ×3; 85027 ×2; 85610; 85730; 86850; 86920; 82272; 71045; G0378 ×3; P9016; J7512 ×3; C9113 ×3

== ENCOUNTER 2022-05-16 07:34 | Day surgery (SDC) | payer MEDICARE ==
[~2022-05-16 07:34] MED LIST changes: -LIDOCAINE 1% 20 ML VIAL (10MG/ML) FOR IV START INTRADERMA PRN; -ONDANSETRON 4 MG/2 ML VIAL IVP ONE
[2022-05-16 08:13] VITALS: TEMP 97.6
[2022-05-16 08:22] LABS: Glucose,Whole Blood 146 mg/dL (70-110)
[2022-05-16] MEDS ORDERED: PROPOFOL 10 MG/ML 20 ML VIAL IV ONE (08:23)
[2022-05-16] MEDS ORDERED: LIDOCAINE 2% INJ 20 MG/ML (2 ML VIAL) ONE (08:23)
--- NOTE | 2022-05-16 08:28 | P.GSHP ---
History of Present Illness H&P Date: 05/16/22 Chief Complaint: GI bleed Is a 69-year-old male with history of GI bleed. Patient presents today for colonoscopy. Past Medical History Past Medical History: Diabetes Mellitus, Hyperlipidemia, Hypertension, Pulmonary Embolus (PE), Rheumatoid Arthritis (RA) Additional Past Medical History / Comment(s): aortic aneurysm, empyema, colitis, History of Any Multi-Drug Resistant Organisms: None Reported Past Surgical History: Hernia Repair Additional Past Surgical History / Comment(s): hemorrhoidectomy, surgeries for sebaceous cysts umbilical hernia repair Past Anesthesia/Blood Transfusion Reactions: No Reported Reaction Smoking Status: Former smoker - Past Family History Son(s) Family Medical History: Cancer Additional Family Medical History / Comment(s): brain cancer Brother(s) Family Medical History: Cancer Additional Family Medical History / Comment(s): colon cancer Sister(s) Family Medical History: Cancer Medications and Allergies Home Medications Medication Instructions Recorded Confirmed Type Atorvastatin [Lipitor] 20 mg PO DAILY 05/19/17 05/14/22 History atenoloL [Tenormin] 50 mg PO BID 05/19/17 05/14/22 History metFORMIN HCL [Glucophage] 500 mg PO BID 05/19/17 05/14/22 History Calcium Carbonate [Calcium] 600 mg PO DAILY 02/01/22 05/14/22 History Cholecalciferol [Vitamin D3 (25 25 mcg PO DAILY 02/01/22 05/14/22 History Mcg = 1000 Iu)] Empagliflozin [Jardiance] 25 mg PO DAILY 02/01/22 05/14/22 History Folic Acid 1 mg PO DAILY 02/01/22 05/14/22 History metHOTREXate sodium [Methotrexate] 25 mg PO HEIN 02/01/22 05/14/22 History Pantoprazole [Protonix] 40 mg PO AC-BID #60 tab 02/07/22 05/14/22 Rx Gabapentin 600 mg PO TID 04/03/22 05/14/22 History HYDROcodone/APAP 7.5-325MG [[place] 2 tab PO QID PRN 04/03/22 05/14/22 History 7.5-325] amLODIPine [Norvasc] 10 mg PO DAILY 04/03/22 05/14/22 History Acetaminophen [Tylenol 8 Hour] 650 mg PO Q4H PRN 05/09/22 05/14/22 History predniSONE 10 mg PO BID 05/09/22 05/14/22 History Apixaban [Eliquis Starter Pack 1 tab PO BID 05/14/22 05/14/22 History (for VTE)] Etanercept [Enbrel Sureclick] 50 mg INJ TU 05/14/22 05/14/22 History Allergies Allergy/AdvReac Type Severity Reaction Status Date / Time No Known Allergies Allergy Verified 05/16/22 08:14 Surgical - Exam Vital Signs Temp Pulse Resp BP Pulse Ox 97.6 F 87 20 152/73 100 05/16/22 08:11 05/16/22 08:11 05/16/22 08:11 05/16/22 08:11 05/16/22 08:11 - General well developed, well nourished, no distress - Eyes PERRL - ENT normal pinna - Neck no masses - Respiratory normal expansion - Cardiovascular Rhythm: regular - Abdomen Abdomen: soft, non tender Results - Labs Abnormal Lab Results - Last 24 Hours (Table) 05/16/22 Range/Units 08:20 POC Glucose (mg/dL) 146 H (70-110) mg/dL Assessment and Plan Assessment: GI bleed. We'll perform colonoscopy.
--- NOTE | 2022-05-16 08:50 | P.OP ---
Date of Procedure: 05/16/22 Preoperative Diagnosis: GI bleed Postoperative Diagnosis: Antral gastritis Esophagitis Severe diverticulosis Procedure(s) Performed: EGD Colonoscopy Anesthesia: MAC Surgeon: Vance Robertson Pathology: other (Antrum, esophagus) Condition: stable Disposition: PACU Description of Procedure: The patient's placed on the endoscopy table in the lateral position. He received IV sedation. The gastro-/oropharynx passed in the esophagus and stomach. Scope then placed through the pylorus. The first and second portion of the duodenum appeared normal. Scope was then brought back the antrum this. Mildly inflamed. A biopsies performed. We'll. The GE junction was at 40 cm. The distal esophagus was mildly inflamed a biopsies performed. The proximal esophagus appeared normal. Scope withdrawn for patient. Next digital rectal exam was performed. There were a few minimal hemorrhoids. Flexible colonoscope was then placed patient anus and passed throughout the entire colon. The ileocecal valve was visualized. The cecum appeared normal. Ascending colon was a few scattered diverticula. In the transverse descending and sigmoid colon there is extensive diverticular changes. There was evidence of some diverticular scarring of the sigmoid colon. Scope was then brought back the rectum and this appeared normal. Scope withdrawn for patient. Presumed patient may have had bleeding from diverticular disease.
[2022-05-16 08:55] VITALS: RESP 16
[2022-05-16 09:36] VITALS: BP 109/69; PULSE 70
== END 2022-05-16 09:48 | disposition home or self-care (01) ==
LOC: ORWHC2ENDO 07:34
PROVIDERS: ATTEND Surgery
DX: K29.50 Unspecified chronic gastritis without bleeding (principal); K20.90 Esophagitis, unspecified without bleeding; K57.30 Diverticulosis of large intestine without perforation or abscess without bleeding; E11.9 Type 2 diabetes mellitus without complications; I10 Essential (primary) hypertension; E78.5 Hyperlipidemia, unspecified; M06.9 Rheumatoid arthritis, unspecified; Z87.891 Personal history of nicotine dependence; Z79.01 Long term (current) use of anticoagulants; Z79.52 Long term (current) use of systemic steroids; Z79.84 Long term (current) use of oral hypoglycemic drugs; Z86.711 Personal history of pulmonary embolism
CPT/HCPCS: 88305; 88342; 45378; 43239; J2704; J2001

== ENCOUNTER → 2022-06-14 | Outpatient (CLI) | payer MEDICARE ==
[2022-06-14 14:45] LABS: African American GFR (CKD) >90 (>60 ml/min/1.73 sqM); Blood Urea Nitrogen 39 mg/dL (9-20); Non-African American GFR(CKD) 84 (>60 ml/min/1.73 sqM)
--- NOTE | 2022-06-14 15:41 | CT ---
Exam: CT Angiography of the Chest. Date: 06/14/2022. Comparison: Follow-up for blood clot. History: 02/01/2022. Technique: CT examination of the chest was performed following the intravenous administration of . CT dose lowering techniques were used, to include: automated exposure control, adjustment for patient s ize, and/or use of iterative reconstruction. No intensity projection reformats were also performed. FINDINGS: Mediastinum and Marjorie: There is no axillary, mediastinal or hilar lymphadenopathy. Pleural and Pericardial spaces: There are small bilateral pleural effusions. Upper Abdomen: There is a 2 cm left adrenal nodule which appears very similar to the previous examina tion. Lobulated and nodular contour to the liver is likely cirrhosis and unchanged. Cardiovascular: There is moderate vascular calcification throughout the thoracic aorta without eviden ce of aneurysmal dilation or dissection. Mild plaque is also seen. There is severe diffuse coronary a rtery calcifications and moderate global cardiomegaly. Pulmonary Artery: The previously seen right middle lobe pulmonary emboli have resolved. No new pulmon berry wires are seen. Lung Parenchyma and Airways: 1.1 cm area of nodularity within the right upper lobe on series 5 image 27. New cavitary nodular lesi on in the right upper lobe measuring 6.9 mm on series 5 image 35. Some patchy groundglass areas of op acity and nodularity within the right lower lobe which are likely due to an inflammatory or atypical infectious process. A few scattered peripheral areas of nodularity seen within the right lower lobe w ith some central areas of cavitation which appear slightly larger than the previous examination with the largest measuring 1.3 cm on series 5 image 131 and previously measured 1.2 cm in diameter. There are a few scattered linear bands of opacities otherwise seen throughout the lungs bilaterally which a re likely atelectasis or scarring. Bones: No fracture or aggressive osseous lesion. IMPRESSION: 1. Solution of pulmonary emboli. 2. No evidence of thoracic aortic aneurysm or dissection. 3. Lateral pleural effusions. 4. Left adrenal nodule is likely very similar to the previous examination. 5. Scattered right-sided pulmonary nodules are new or increased since the previous examination. 6. Cardiomegaly with severe coronary artery calcifications. 7. Nodular contour to the liver is likely cirrhosis.
== END | disposition home or self-care (01) ==
LOC: RADCTMAIN 13:52
PROVIDERS: ATTEND Internal Medicine Critical Care Medicine
DX: I26.99 Other pulmonary embolism without acute cor pulmonale (principal); J90 Pleural effusion, not elsewhere classified; E27.8 Other specified disorders of adrenal gland; R91.8 Other nonspecific abnormal finding of lung field; K76.89 Other specified diseases of liver; I25.10 Atherosclerotic heart disease of native coronary artery without angina pectoris; I51.7 Cardiomegaly
CPT/HCPCS: 82565; 84520; 71275; 36415; Q9967

== ENCOUNTER 2022-07-10 15:43 | Inpatient (IN) | payer OTHER, MEDICARE ==
[2022-07-10] MEDS ORDERED: DIPH,PERTUS(ACELL)TETVAC-LF 0.5 ML VIAL IM ONE (15:50)
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
[2022-07-10 16:08] LABS: INR 0.9 (<1.2); Partial Thromboplastin Time 22.2 sec (22.0-30.0)
[2022-07-10 16:09] LABS: Anisocytosis Moderate; HCT 36.1 % (39.0-53.0); MCH 34.2 pg (25.0-35.0); MCHC 33.9 g/dL (31.0-37.0); Macrocytosis Moderate; Mean Platelet Volume 9.7; Platelet Count 113 k/uL (150-450); Poikilocytosis Slight; RBC 3.57 m/uL (4.30-5.90); RDW 21.5 % (11.5-15.5); WBC 9.1 k/uL (3.8-10.6)
[2022-07-10 16:11] LABS: HGB 12.2 gm/dL (13.0-17.5); MCV 101.1 fL (80.0-100.0)
[2022-07-10 16:16] LABS: ALT 77 U/L (4-49); AST 45 U/L (17-59); African American GFR (CKD) 90 (>60 ml/min/1.73 sqM); Albumin 3.7 g/dL (3.5-5.0); Alcohol <10 mg/dL; Alkaline Phosphatase 83 U/L (38-126); Anion Gap 8 mmol/L; Blood Urea Nitrogen 25 mg/dL (9-20); Calcium 8.8 mg/dL (8.4-10.2); Carbon Dioxide 25 mmol/L (22-30); Chloride 102 mmol/L (98-107); Glucose 95 mg/dL (74-99); Non-African American GFR(CKD) 78 (>60 ml/min/1.73 sqM); Potassium 4.1 mmol/L (3.5-5.1); Sodium 135 mmol/L (137-145); Total Bilirubin 1.5 mg/dL (0.2-1.3); Total Protein 6.4 g/dL (6.3-8.2)
[2022-07-10 16:16] LABS: Glucose,Whole Blood 97 mg/dL (70-110)
[2022-07-10 16:25] LABS: Band Neutrophils % 5 %; Eosinophils # (M) 0.09 k/uL (0-0.7); Lymphocytes # (M) 2.28 k/uL (1.0-4.8); Metamyelocytes # (M) 0.27 k/uL (0); Metamyelocytes % 3 %; Monocytes # (M) 0.27 k/uL (0-1.0); Neutrophils % (M) 63 %; Nucleated Red Blood Cells 0 /100 WBC (0-0); Total Cells Counted 100
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
[2022-07-10] MEDS ORDERED: SODIUM CHLORIDE 0.9% 500 ML 500 ML IV STA (17:01)
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
[2022-07-10] MEDS ORDERED: NALOXONE 0.4 MG/ML 1 ML VIAL IV PRN (17:56)
[2022-07-10 18:03] LABS: Amphetamine Screen,Urine Not Detected (NotDetected); Barbiturate Screen,Urine Not Detected (NotDetected); Benzodiazepines Screen,Urine Not Detected (NotDetected); Cocaine Screen,Urine Not Detected (NotDetected); Methadone Screen, Urine Not Detected (NotDetected); Opiate Screen,Urine Not Detected (NotDetected); Oxycodone Screen, Urine Not Detected (NotDetected); Phencyclidine Screen,Urine Not Detected (NotDetected); Tricyclic Antidepressant,Urine Not Detected (NotDetected); Urn Cannabinoid Scrn Not Detected (NotDetected)
[2022-07-10] MEDS: ACETAMINOPHEN TAB 325 MG TAB PO PRN (18:32)
[2022-07-10] MEDS: SODIUM CHLORIDE 0.9% 1,000 ML IV SCH (18:42)
[2022-07-10] MEDS: FAMOTIDINE 20 MG TAB PO SCH (21:09)
[2022-07-11] MEDS ORDERED: NON FORMULARY DRUG (Acetaminophen [Tylenol 8 Hour] 650 MG Tablet) PO PRN (07:49)
[2022-07-11] MEDS: FAMOTIDINE 20 MG TAB PO SCH ×2 (08:41→20:02)
[2022-07-11] MEDS: GABAPENTIN 300 MG CAP PO SCH ×3 (08:41→20:03)
[2022-07-11] MEDS: amLODIPine 10 MG TAB PO SCH (08:41)
[2022-07-11] MEDS: CHOLECALCIFEROL 25 MCG (1000 IU) TABLET PO SCH (08:41)
[2022-07-11] MEDS: CALCIUM CARBONATE 500 MG CHEWABLE PO SCH (08:42)
[2022-07-11] MEDS: atenoloL 50 MG TAB PO SCH ×2 (08:42→20:02)
[2022-07-11] MEDS: SODIUM CHLORIDE 0.9% 1,000 ML IV SCH (08:51)
[2022-07-11 08:52] LABS: Glucose,Whole Blood 127 mg/dL (70-110)
[2022-07-11] MEDS ORDERED: ATORVASTATIN 20 MG TAB PO SCH (09:00)
[2022-07-11] MEDS ORDERED: NON FORMULARY DRUG (Apixaban [Eliquis Starter Pack (For Vte)] 5 MG Packet) PO SCH (09:00)
[2022-07-11] MEDS ORDERED: GLIMEPIRIDE 2 MG TAB PO SCH (09:00)
[2022-07-11 09:12] LABS: Anisocytosis Moderate; HCT 32.3 % (39.0-53.0); HGB 10.8 gm/dL (13.0-17.5); MCHC 33.4 g/dL (31.0-37.0); MCV 101.8 fL (80.0-100.0); Macrocytosis Marked; Mean Platelet Volume 8.8; Poikilocytosis Slight; RBC 3.17 m/uL (4.30-5.90); RDW 21.7 % (11.5-15.5); WBC 5.5 k/uL (3.8-10.6)
[2022-07-11 09:44] LABS: ALT 55 U/L (4-49); AST 31 U/L (17-59); African American GFR (CKD) >90 (>60 ml/min/1.73 sqM); Albumin 2.9 g/dL (3.5-5.0); Alkaline Phosphatase 50 U/L (38-126); Anion Gap 5 mmol/L; Blood Urea Nitrogen 20 mg/dL (9-20); Carbon Dioxide 23 mmol/L (22-30); Chloride 107 mmol/L (98-107); Glucose 88 mg/dL (74-99); Non-African American GFR(CKD) 82 (>60 ml/min/1.73 sqM); Potassium 3.9 mmol/L (3.5-5.1); Sodium 135 mmol/L (137-145); Total Protein 5.3 g/dL (6.3-8.2)
[2022-07-11 09:50] LABS: Platelet Count 93 k/uL (150-450)
[2022-07-11 09:51] LABS: Basophils # (M) 0.06 k/uL (0-0.2); Eosinophils # (M) 0.11 k/uL (0-0.7); Lymphocytes # (M) 0.88 k/uL (1.0-4.8); Monocytes # (M) 0.11 k/uL (0-1.0); Neutrophils # (M) 4.35 k/uL (1.3-7.7); Neutrophils % (M) 79 %; Nucleated Red Blood Cells 0 /100 WBC (0-0); Total Cells Counted 100
[2022-07-11] MEDS ORDERED: HEPARIN SODIUM 1,000 UN/ML (10ML VL) IV PRN (10:07)
[2022-07-11] MEDS ORDERED: HEPARIN SODIUM 1,000 UN/ML (10ML VL) IV ONE (10:07)
[2022-07-11] MEDS ORDERED: ALPRAZolam 0.25 MG TAB PO PRN (10:08)
[2022-07-11] MEDS ORDERED: NITROGLYCERIN SL TABS 0.4 MG TAB SUBLINGUAL PRN (10:08)
[2022-07-11] MEDS ORDERED: ALPRAZolam 0.5 MG TAB PO PRN (10:08)
[2022-07-11] MEDS ORDERED: HEPARIN SOD,PORK IN 0.45% NACL 25,000 UNIT in 0.45% NACL 1 250ML.BAG IV SCH (10:15)
[2022-07-11] MEDS: DAPAGLIFLOZIN PROPANEDIOL 10 MG TABLET PO SCH (10:59)
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
[2022-07-11] MEDS ORDERED: DEXTROSE 50% SYRINGE 50 ML IVP PRN ×2 (11:32)
[2022-07-11] MEDS: metFORMIN 500 MG TAB PO SCH ×2 (11:37→19:33)
[2022-07-11 11:38] LABS: Glucose,Whole Blood 161 mg/dL (70-110)
[2022-07-11] MEDS: predniSONE 10 MG TAB PO SCH ×2 (11:40→20:02)
[2022-07-11] MEDS: INSULIN ASPART (NovoLOG) 100 UNIT/ML VIAL SQ SCH ×2 (11:40→16:35)
[2022-07-11] MEDS: FOLIC ACID 1 MG TAB PO SCH (11:40)
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
[2022-07-11 16:27] LABS: Glucose,Whole Blood 366 mg/dL (70-110)
[2022-07-11] MEDS: PANTOPRAZOLE 40 MG TABLET PO SCH (17:36)
--- NOTE | 2022-07-11 19:20 | US ---
EXAMINATION TYPE: US carotid duplex BILAT DATE OF EXAM: 07/11/2022 COMPARISON: NONE CLINICAL HISTORY: Episode of unconsciousness. TECHNIQUE: Carotid duplex ultrasound examination. Indirect Doppler criteria was utilized. 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 Criteria for Assigning % of Stenosis / Diameter reduction (Estimation based on the indirect measurements of the internal carotid artery velocities (ICA PSV). 1. Normal (no stenosis)=ICA PSV < 125 cm/s: ratio < 2.0: ICA EDV<40 cm/s. 2. Less than 50% stenosis=ICA PSV < 125 cm/s: ratio < 2.0: ICA EDV<40 cm/s. 3. 50 to 69% stenosis=ICA PSV of 125 to 230 cm/s: ration 2.0 ? 4.0: ICA EDV 40-100 cm/s. 4. Greater than 70% stenosis to near occlusion= ICA PSV > 230 cm/s: ratio > 4.0: ICA EDV > 100 cm/s. 5. Near occlusion= ICA PSV velocities may be low or undetectable: variable ratio and ICA EDV. 6. Total occlusion=unable to detect flow.
--- NOTE | 2022-07-11 19:21 | US ---
EXAMINATION TYPE: US abdomen limited DATE OF EXAM: 07/11/2022 COMPARISON: US: 02/01/22, CT:07/10/22 CLINICAL HISTORY: Nodular liver on the computed tomography scan. Nodular liver TECHNIQUE: Multiple sonographic images of the right upper quadrant are obtained. FINDINGS: EXAM MEASUREMENTS: Liver Length: 14.6 cm Gallbladder Wall: 0.27 cm CBD: 0.35 cm Right Kidney: 9.9 x 4.5 x 5.8 cm [employer] NOTES: Pancreas: Obscured by bowel gas Liver: Nodular appearance no obvious masses. Gallbladder: wnl Evidence for sonographic Perez's sign: No CBD: wnl Right Kidney: wnl IMPRESSION: 1. Nodular contour to liver correlate for cirrhosis. No suspicious masses are visualized. 2. No evidence for acute process.
--- NOTE | 2022-07-11 19:48 | XR ---
EXAMINATION TYPE: XR chest 2V DATE OF EXAM: 07/11/2022 7:11 PM COMPARISON: Chest radiographs from 07/10/2022 TECHNIQUE: XR chest 2V Frontal and lateral views of the chest. CLINICAL INDICATION:Male, 77 years old with history of Fever; FINDINGS: Lungs/Pleura: Similar multifocal airspace opacities most pronounced in the bases and perihilar region s. No evidence of pneumothorax . There is a trace bilateral pleural effusions as seen on prior CT.. Pulmonary vascularity: Pulmonary vascular congestion. Heart/mediastinum: Cardiomediastinal silhouette is enlarged and stable. Musculoskeletal: No acute osseous pathology. IMPRESSION: Pulmonary vascular congestion with cardiomegaly and trace bilateral pleural effusion correlate for co ngestive heart failure. Superimposed infection not entirely excluded.
[2022-07-11 19:50] LABS: Glucose,Whole Blood 147 mg/dL (70-110)
[2022-07-11] MEDS: DOCUSATE 100 MG CAP PO SCH (20:02)
[2022-07-11 22:14] LABS: Glucose,Whole Blood 123 mg/dL (70-110)
[2022-07-12] MEDS: SODIUM CHLORIDE 0.9% 1,000 ML in EMPTY BAG 1 BAG IV SCH ×2 (03:54→14:41)
[2022-07-12] MEDS: SODIUM CHLORIDE 0.9% 1,000 ML IV SCH ×2 (03:54→14:42)
[2022-07-12] MEDS ORDERED: ATORVASTATIN 80 MG TAB PO ONE (05:00)
[2022-07-12] MEDS ORDERED: ASPIRIN 325 MG TAB PO ONE (05:00)
[2022-07-12] MEDS: ATORVASTATIN 80 MG TAB PO SCH (05:55)
[2022-07-12] MEDS: ASPIRIN 81 MG PO SCH (05:55)
[2022-07-12] MEDS: DAPAGLIFLOZIN PROPANEDIOL 10 MG TABLET PO SCH (05:56)
[2022-07-12 06:14] LABS: Glucose,Whole Blood 144 mg/dL (70-110)
[2022-07-12] MEDS: CALCIUM CARBONATE 500 MG CHEWABLE PO SCH (06:16)
[2022-07-12] MEDS: amLODIPine 10 MG TAB PO SCH (06:16)
[2022-07-12] MEDS: atenoloL 50 MG TAB PO SCH ×2 (06:16→20:25)
[2022-07-12] MEDS: FAMOTIDINE 20 MG TAB PO SCH ×2 (06:16→20:25)
[2022-07-12] MEDS: CHOLECALCIFEROL 25 MCG (1000 IU) TABLET PO SCH (06:17)
[2022-07-12] MEDS: PANTOPRAZOLE 40 MG TABLET PO SCH ×2 (06:17→17:09)
[2022-07-12] MEDS: GABAPENTIN 300 MG CAP PO SCH ×3 (06:17→20:25)
[2022-07-12] MEDS: INSULIN ASPART (NovoLOG) 100 UNIT/ML VIAL SQ SCH ×3 (06:32→17:09)
[2022-07-12] MEDS ORDERED: HEPARIN SODIUM,PORCINE 2,500 UNIT in SODIUM CHLORIDE 0.9% 250 ML IRRIGATION PRN (07:00)
[2022-07-12] MEDS ORDERED: HEPARIN SODIUM,PORCINE 10,000 UNIT in SODIUM CHLORIDE 0.9% 1,000 ML IRRIGATION PRN (07:00)
[2022-07-12 07:54] LABS: Partial Thromboplastin Time 52.6 sec (22.0-30.0); Prothrombin Time 10.4 sec (9.0-12.0)
[2022-07-12 07:56] LABS: Anisocytosis Moderate; HCT 27.1 % (39.0-53.0); MCH 33.5 pg (25.0-35.0); MCHC 32.7 g/dL (31.0-37.0); MCV 102.7 fL (80.0-100.0); Macrocytosis Marked; Mean Platelet Volume 9.2; Poikilocytosis Slight; RBC 2.64 m/uL (4.30-5.90); RDW 21.5 % (11.5-15.5); WBC 3.4 k/uL (3.8-10.6)
[2022-07-12 08:01] LABS: HGB 8.9 gm/dL (13.0-17.5); Platelet Count 92 k/uL (150-450)
[2022-07-12] MEDS: DOCUSATE 100 MG CAP PO SCH ×2 (08:09→20:25)
[2022-07-12 08:45] LABS: Lymphocytes # (M) 0.58 k/uL (1.0-4.8); Neutrophils # (M) 2.62 k/uL (1.3-7.7); Neutrophils % (M) 77 %; Nucleated Red Blood Cells 0 /100 WBC (0-0); Total Cells Counted 100
[2022-07-12 09:10] LABS: African American GFR (CKD) >90 (>60 ml/min/1.73 sqM); Anion Gap 5 mmol/L; Blood Urea Nitrogen 20 mg/dL (9-20); Calcium 7.9 mg/dL (8.4-10.2); Carbon Dioxide 21 mmol/L (22-30); Chloride 109 mmol/L (98-107); Glucose 112 mg/dL (74-99); Non-African American GFR(CKD) 83 (>60 ml/min/1.73 sqM); Sodium 135 mmol/L (137-145)
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
--- NOTE | 2022-07-12 10:54 | CA ---
Transthoracic Echo Report Name: Guero Fernandez Age: 77 Gender: M : 1945 Exam Date: 07/11/2022 14:26 Exam Location: [facility] Ht (in): 68 Wt (lb): 168 Ordering Physician: Jennifer Noonan Attending/Referring Phys: Cedric Esteves MD Grinding Room Inspector Tesha Meyers RDCS Procedure CPT: Indications: LV function, abnormal trops Cardiac Hx: Technical Quality: Contrast 1: Total Dose (mL): Contrast 2: Total Dose (mL): MEASUREMENTS (Male / Female) Normal Values 2D ECHO LV Diastolic Diameter PLAX 5.1 cm 4.2 - 5.9 / 3.9 - 5.3 cm LV Systolic Diameter PLAX 3.9 cm IVS Diastolic Thickness 1.3 cm 0.6 - 1.0 / 0.6 - 0.9 cm LVPW Diastolic Thickness 1.6 cm 0.6 - 1.0 / 0.6 - 0.9 cm LV Relative Wall Thickness 0.6 RV Internal Dim ED PLAX 3.5 cm LA Systolic Diameter LX 3.3 cm 3.0 - 4.0 / 2.7 - 3.8 cm LA Volume 79.2 cm??? 18 - 58 / 22 - 52 cm??? M-MODE Aortic Root Diameter MM 3.2 cm LA Systolic Diameter MM 4.2 cm LA Ao Ratio MM 1.3 MV E Point Septal Separation 1.6 cm AV Cusp Separation MM 2.0 cm FINDINGS Left Ventricle Mildly increased septal wall thickness. Left ventricular cavity size normal. Left ventricular ejection fraction is estimated at 55 %. Right Ventricle Normal right ventricular size and function. Right ventricular systolic pressure within normal limits. Right Atrium Normal right atrial size. Left Atrium Severely increased left atrial volume. Mildly increased left atrial area. Mitral Valve Structurally normal mitral valve. Mild mitral regurgitation. Aortic Valve Trileaflet aortic valve. Aortic valve sclerosis. Mild aortic regurgitation. Tricuspid Valve Structurally normal tricuspid valve. Mild tricuspid regurgitation. Pulmonic Valve Structurally normal pulmonic valve. Pericardium Trace Pericardial effusion. Aorta Normal size aortic root and proximal ascending aorta. CONCLUSIONS Normal LV size and systolic function with mild concentric LVH. Mild mitral and tricuspid insufficiency. Mild aortic insufficiency. Trivial pericardial effusion Previewed by: Dr. Paulie Pathak MD (Electronically Signed) Final Date: 12 July 2022 10:54
[2022-07-12 11:32] LABS: Glucose,Whole Blood 211 mg/dL (70-110)
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
[2022-07-12] MEDS: polyethylene glycoL 3350 17 GM POWD.PACK PO SCH (12:06)
[2022-07-12] MEDS: FOLIC ACID 1 MG TAB PO SCH (12:07)
[2022-07-12] MEDS: predniSONE 10 MG TAB PO SCH ×2 (12:07→20:26)
[2022-07-12] MEDS: metFORMIN 500 MG TAB PO SCH (12:07)
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
[2022-07-12 16:34] LABS: Glucose,Whole Blood 271 mg/dL (70-110)
--- NOTE | 2022-07-12 16:47 | MR ---
EXAMINATION TYPE: MR brain wo/w con DATE OF EXAM: 07/12/2022 COMPARISON: None HISTORY: loss of consciousness. CONTRAST: Standard multiplanar, multisequence MRI departmental protocol images were obtained without contrast a nd with 7.5 mL intravenous Gadavist gadolinium contrast. Multiplanar multi echo imaging of the brain performed without and subsequently with the IV contrast. Diffusion images show no evidence of an acute infarct. There is diffuse cerebral cortical atrophy. Th ere is no mass effect or midline shift. No sign of intracranial hemorrhage. There is moderate patchy increased signal in the periventricular white matter on the T2 and FLAIR images. There is coalescent areas measuring up to 1 cm in thickness. There is extension into the kinsey-white matter junction of fartun th cerebral hemispheres. The brainstem is intact. Sella turcica is intact. Corpus callosum is intact. There is normal enhancement of the venous sinuses. There is no pathologic enhancement. No evidence of orbital mass. IMPRESSION: Cerebral atrophy and chronic white matter signal changes likely related to microvascular ischemia. De myelinating disease not excluded. No evidence of cortical infarct
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
[2022-07-12] MEDS: HEPARIN SODIUM,PORCINE/PF 5,000 UNIT/0.5 ML SYRINGE SQ SCH ×2 (17:07→22:57)
[2022-07-12] MEDS ORDERED: RX INFO: IV CONTRAST WAS GIVEN 1 EACH MISC MISCELLANE PRN (17:13)
--- NOTE | 2022-07-12 19:04 | US ---
EXAMINATION TYPE: US venous doppler duplex LE BI DATE OF EXAM: 07/12/2022 6:16 PM COMPARISON: 02/02/22 CLINICAL HISTORY: Rule out DVT. Pt on blood thinners, hx of PE SIDE PERFORMED: Bilateral TECHNIQUE: The lower extremity deep venous system is examined utilizing real time linear array sonog tomasa with graded compression, doppler sonography and color-flow sonography. VESSELS IMAGED: Common Femoral Vein Deep Femoral Vein Greater Saphenous Vein * Femoral Vein Popliteal Vein Small Saphenous Vein * Proximal Calf Veins (* superficial vessels) Right Leg: Negative for DVT Left Leg: Negative for DVT IMPRESSION: No evidence of deep vein thrombosis in both legs.
--- NOTE | 2022-07-12 20:20 | CT ---
EXAMINATION TYPE: CT angio chest DATE OF EXAM: 07/12/2022 COMPARISON: 07/10/2022 HISTORY: r/o PE CT DLP: 494.8 mGycm Automated exposure control for dose reduction was used. CONTRAST: Performed with IV Contrast, patient injected with 100 mL of Isovue 370. Images obtained from the diaphragm to the floor the pelvis with IV contrast. There are bilateral pleural effusions. Heart is enlarged. No pericardial effusion. There is coarse in terstitial infiltrates in the mid and lower lung kemp. No mediastinal adenopathy. There are a few b ilateral bronchial lymph nodes up to 1 cm. There is 4.1 cm aneurysm of the ascending aorta. No dissection. There is normal contrast opacificatio n of the pulmonary arteries. No filling defect IMPRESSION: No evidence of pulmonary embolism. Pleural effusions and pulmonary interstitial bilateral infiltrates that could be some congestive heart failure. Lung abnormalities not significantly different than rec ent exam.
[2022-07-12 20:27] LABS: Glucose,Whole Blood 286 mg/dL (70-110)
[2022-07-12 20:52] LABS: Appearance,Urine Clear (Clear); Bilirubin,Urine Negative (Negative); Blood,Urine Negative (Negative); Color,Urine Light Yellow; Glucose,Urine (UA) 4+ (Negative); Ketones,Urine Negative (Negative); Leukocyte Esterase,Urine Negative (Negative); Nitrite,Urine Negative (Negative); PH, Urine 6.5 (5.0-8.0); Protein,Urine 1+ (Negative); RBC,Urine <1 /hpf (0-5); Specific Gravity,Urine 1.041 (1.001-1.035); Urobilinogen,Urine <2.0 mg/dL (<2.0); WBC,Urine <1 /hpf (0-5)
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
[2022-07-13] MEDS: SODIUM CHLORIDE 0.9% 1,000 ML in EMPTY BAG 1 BAG IV SCH (04:29)
[2022-07-13] MEDS: SODIUM CHLORIDE 0.9% 1,000 ML IV SCH ×2 (04:29→12:37)
[2022-07-13 06:11] LABS: Glucose,Whole Blood 245 mg/dL (70-110)
[2022-07-13] MEDS: INSULIN ASPART (NovoLOG) 100 UNIT/ML VIAL SQ SCH ×4 (06:38→23:19)
[2022-07-13] MEDS: PANTOPRAZOLE 40 MG TABLET PO SCH (06:38)
[2022-07-13] MEDS: polyethylene glycoL 3350 17 GM POWD.PACK PO SCH (08:12)
[2022-07-13] MEDS: DAPAGLIFLOZIN PROPANEDIOL 10 MG TABLET PO SCH (08:12)
[2022-07-13] MEDS: HEPARIN SODIUM,PORCINE/PF 5,000 UNIT/0.5 ML SYRINGE SQ SCH ×3 (08:12→23:19)
[2022-07-13] MEDS: atenoloL 50 MG TAB PO SCH (08:12)
[2022-07-13] MEDS: amLODIPine 10 MG TAB PO SCH (08:13)
[2022-07-13] MEDS: ASPIRIN 81 MG PO SCH (08:13)
[2022-07-13] MEDS: ATORVASTATIN 80 MG TAB PO SCH (08:13)
[2022-07-13] MEDS: FAMOTIDINE 20 MG TAB PO SCH (08:13)
[2022-07-13] MEDS: CALCIUM CARBONATE 500 MG CHEWABLE PO SCH (08:13)
[2022-07-13] MEDS: DOCUSATE 100 MG CAP PO SCH (08:13)
[2022-07-13] MEDS: GABAPENTIN 300 MG CAP PO SCH ×3 (08:13→22:51)
[2022-07-13] MEDS: CHOLECALCIFEROL 25 MCG (1000 IU) TABLET PO SCH (08:13)
[2022-07-13] MEDS: guaiFENesin 600 MG TABLET.ER PO SCH ×2 (08:44→20:30)
[2022-07-13] MEDS ORDERED: FUROSEMIDE 20 MG TAB PO SCH (09:00)
[2022-07-13] MEDS ORDERED: FUROSEMIDE 10 MG/ML 4 ML VIAL IV STA (10:05)
--- NOTE | 2022-07-13 10:46 | P.PN ---
Progress Note - Text Progress Note Date: 07/13/22 Patient's short of breath. He is satting 80% on 5 L nasal cannula. He denies any chest pain. Facial edema is improving. The nursing staff will convert him to nonrebreather mask. We will wait pulmonology evaluation.
--- NOTE | 2022-07-13 10:51 | XR ---
EXAMINATION TYPE: XR chest 1V portable DATE OF EXAM: 07/13/2022 10:25 AM COMPARISON: Chest radiograph from two days prior. TECHNIQUE: XR chest 1V portable Portable AP radiograph of the chest. CLINICAL INDICATION:Male, 77 years old with history of SOB; FINDINGS: Lungs/Pleura: Worsening multifocal airspace opacities. No evidence of pneumothorax. There is blunting of the costophrenic angles. Pulmonary vascularity: Pulmonary vascular congestion. Heart/mediastinum: Cardiomediastinal silhouette is enlarged and stable. Musculoskeletal: No acute osseous pathology. IMPRESSION: Worsening congestive heart failure versus pneumonia.
[2022-07-13] MEDS ORDERED: propofoL 100 ML IV ONE (11:05)
[2022-07-13 11:16] LABS: Glucose,Whole Blood 265 mg/dL (70-110)
[2022-07-13] MEDS ORDERED: CISATRACURIUM 2 MG/ML 5 ML VIAL IV ONE (11:17)
--- NOTE | 2022-07-13 11:18 | P.PN ---
Progress Note - Text Progress Note Date: 07/13/22 Patient with history acute respiratory distress, intubated today secondary to hypoxia and respiratory distress , patient in the intensive care unit ,patient was preoxygenated, 100% O2 Ambu bag, then after that 120 mg of propofol was given intravenously and followed with 100 mg of succinyl choline, using Mac 3 laryngoscope and oral ET tube size 8 placed at 23 cm, G-tube placement confirmed with color change of the CO2 indicator, then after that the tube was secured and further management as per ICU team.
[2022-07-13 12:16] LABS: ABG Base Excess -4.4 mmol/L; ABG HCO3 24 mmol/L (21-25); ABG Oxygen Saturation 98.6 % (94-97); ABG PCO2 66 mmHg (35-45); ABG PO2 141 mmHg (83-108); ABG TCO2 26 mmol/L (19-24); Allen Test Performed? Yes
--- NOTE | 2022-07-13 12:20 | XR ---
EXAMINATION TYPE: XR chest 1V portable DATE OF EXAM: 07/13/2022 12:01 PM COMPARISON: Same day TECHNIQUE: XR chest 1V portable 1V portable. CLINICAL INDICATION:Male, 77 years old with history of pulm edema ETT placement; FINDINGS: Lungs/Pleura: Worsening airspace opacities throughout the lungs. Bilateral pleural effusions. There i s no evidence of pleural effusion, or pneumothorax. Pulmonary vascularity: Unremarkable. Heart/mediastinum: Cardiomediastinal silhouette is enlarged and stable. Musculoskeletal: No acute osseous pathology. ET tube with distal tip approximately 5.6 cm above the little appropriate position. IMPRESSION: Worsening airspace opacities concerning for pulmonary edema with bilateral pleural effusions and card iomegaly correlate with serum BNP.
[2022-07-13 12:30] LABS: ABG PH 7.17 (7.35-7.45)
[2022-07-13] MEDS: FOLIC ACID 1 MG TAB PO SCH (12:36)
[2022-07-13] MEDS: predniSONE 10 MG TAB PO SCH (12:37)
[2022-07-13 12:39] LABS: Anisocytosis Moderate; HGB 11.2 gm/dL (13.0-17.5); MCH 33.7 pg (25.0-35.0); MCV 105.1 fL (80.0-100.0); Macrocytosis Marked; Mean Platelet Volume 8.6; Poikilocytosis Slight; RBC 3.33 m/uL (4.30-5.90); RDW 21.7 % (11.5-15.5); WBC 8.6 k/uL (3.8-10.6)
[2022-07-13] MEDS: SODIUM CHLORIDE 0.9% 80 ML with fentaNYL (PF) 1,000 MCG IV SCH ×2 (12:42)
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
[2022-07-13 12:44] LABS: Albumin 3.3 g/dL (3.5-5.0); Calcium 8.1 mg/dL (8.4-10.2); Potassium 4.3 mmol/L (3.5-5.1); Total Protein 5.9 g/dL (6.3-8.2)
[2022-07-13 12:46] LABS: Total Bilirubin 0.9 mg/dL (0.2-1.3)
[2022-07-13 12:46] LABS: Appearance,Urine Clear (Clear); Bilirubin,Urine Negative (Negative); Blood,Urine Negative (Negative); Color,Urine Colorless; Glucose,Urine (UA) 4+ (Negative); Ketones,Urine Negative (Negative); Leukocyte Esterase,Urine Negative (Negative); Nitrite,Urine Negative (Negative); Protein,Urine Trace (Negative); Specific Gravity,Urine 1.006 (1.001-1.035); Urobilinogen,Urine <2.0 mg/dL (<2.0)
[2022-07-13 12:48] LABS: Platelet Count 191 k/uL (150-450)
--- NOTE | 2022-07-13 12:48 | OP ---
OPERATIVE REPORT PROCEDURE PERFORMED: Placement of right IJ triple-lumen catheter. PREOPERATIVE DIAGNOSIS: Acute hypoxic and hypercapnic respiratory failure. POSTOPERATIVE DIAGNOSIS: Acute hypoxic and hypercapnic respiratory failure. ANESTHESIA USED: 2 mL of 1% lidocaine. DESCRIPTION OF PROCEDURE: The patient was placed in a Trendelenburg position. The area of the cervical region was prepared in a sterile fashion and drapes were applied. The area behind the posterior belly of the sternocleidomastoid was locally anesthetized. Then using the posterior approach, the right internal jugular vein was easily cannulated, a guidewire was placed, and the area around the guidewire was dilated. Then a triple-lumen catheter was inserted over the guidewire, and the guidewire was removed. Good blood flow noted in 3 different ports, no complications. Line was secured using 3-0 silk sutures and chest x-ray showed adequate placement of the line and no pneumothorax. MMODL / IJN: [id number] /
--- NOTE | 2022-07-13 12:51 | XR ---
EXAMINATION TYPE: XR chest 1V portable DATE OF EXAM: 07/13/2022 12:23 PM COMPARISON: Chest radiographs from 07/13/2022 TECHNIQUE: XR chest 1V portable Portable AP radiograph of the chest. CLINICAL INDICATION:Male, 77 years old with history of line placement; FINDINGS: Lungs/Pleura: Similar multifocal airspace opacities. No evidence of pneumothorax or pleural effusion. Pulmonary vascularity: Unremarkable. Heart/mediastinum: Cardiomediastinal silhouette is unremarkable. Musculoskeletal: No acute osseous pathology. Other findings: None Lines/Tubes: Endotracheal tube with distal tip 6.8 xx cm above the little. Nasogastric tube with its distal tip and side-port projecting under the diaphragm. Right internal jugular central venous catheter with distal tip at the cavoatrial junction. IMPRESSION: 1. Right IJ with tip projecting at the superior cavoatrial junction. 2. Support tubes in appropriate position.
--- NOTE | 2022-07-13 13:03 | OP ---
OPERATIVE REPORT PROCEDURE PERFORMED: Placement of a left radial arterial line. PREOPERATIVE DIAGNOSIS: Acute hypoxic and hypercapnic respiratory failure. POSTOPERATIVE DIAGNOSIS: Acute hypoxic and hypercapnic respiratory failure. ANESTHESIA: None deployed. DESCRIPTION OF PROCEDURE: The wrist was prepared in a sterile fashion. The drapes were applied. The left radial artery was palpated, easily cannulated, a guidewire was placed. A Cook catheter was inserted over the guidewire, the guidewire was removed. Good blood flow, good waveform, line was secured using 3-0 silk sutures, no complications. MMODL / IJN: [id number] /
[2022-07-13] MEDS: methylPREDNISolone SOD SUCCI 40 MG/ML 1 ML VIAL IV SCH ×2 (13:04→20:41)
[2022-07-13 13:15] LABS: Band Neutrophils % 2 %; Lymphocytes # (M) 0.69 k/uL (1.0-4.8); Monocytes # (M) 0.43 k/uL (0-1.0); Neutrophils % (M) 85 %; Nucleated Red Blood Cells 0 /100 WBC (0-0); Total Cells Counted 100
[2022-07-13] MEDS: NOREPINEPHRINE 4 MG in SODIUM CHLORIDE 0.9% 250 ML IV SCH (15:35)
[2022-07-13] MEDS: FUROSEMIDE 10 MG/ML 4 ML VIAL IV SCH ×2 (16:03→23:19)
[2022-07-13] MEDS: PIPERACILLIN-TAZOBACTAM 3.375 GM in SODIUM CHLORIDE 0.9% 100 ML IVPB SCH ×2 (16:03→23:20)
--- NOTE | 2022-07-13 17:04 | P.PN ---
Subjective Patient was initially admitted for syncope was treated for sepsis secondary to urinary tract infection patient today was transferred to ICU because of her acute respiratory failure which was believed to be secondary to hypoxemia from congestive heart failure pulmonary edema but patient does have hypercapnia as well with the metabolic acidosis. REVIEW OF SYSTEMS: Unable to obtain as patient is intubated PHYSICAL EXAMINATION: GENERAL: Intubated sedated HEENT: Pupils are round and equally reacting to light. EOMI. No scleral icterus. No conjunctival pallor. Normocephalic, atraumatic. No pharyngeal erythema. No thyromegaly. CARDIOVASCULAR: S1 and S2 present. No murmurs, rubs, or gallops. PULMONARY: Chest is clear to auscultation, no wheezing or crackles. ABDOMEN: Soft, nontender, nondistended, normoactive bowel sounds. No palpable organomegaly. MUSCULOSKELETAL: No joint swelling or deformity. EXTREMITIES: No cyanosis, clubbing, or pedal edema. NEUROLOGICAL: Patient is sedated SKIN: No rashes. Assessment and plan -Acute hypoxic and possibly hypercapnic respiratory failure secondary to congestive heart failure, patient was started on Lasix patient is presently intubated been off ventilatory support as tolerated patient appears to have diastolic dysfunction there may be a competent of for COPD contributing to hypercapnia for which patient is on Solu-Medrol -Syncope: Patient was extensively evaluated rule out pulmonary embolism -Sepsis with shock patient is on norepinephrine possibly secondary to urinary tract infection for which patient is presently in Zosyn and infectious disease is following the patient as well -Elevated troponin on admission secondary to sepsis -Type 2 diabetes mellitus -Essential hypertension -Diabetic peripheral neuropathy -History of rheumatoid arthritis DVT prophylaxis: Subcutaneous heparin Objective - Vital Signs Vital signs: Vital Signs Temp 98 F 07/13/22 16:00 Pulse 93 07/13/22 16:00 Resp 24 07/13/22 16:00 BP 149/88 07/13/22 12:00 Pulse Ox 97 07/13/22 16:00 FiO2 65 07/13/22 15:31 Intake & Output 07/12/22 07/13/22 07/13/22 18:59 06:59 18:59 Intake Total 319.324 400.053 Output Total 2 450 400 Balance 317.324 -450 0.053 Weight 79.6 kg Intake: Intake, IV Titration 201.324 130.053 Amount Heparin Sod,Pork in 0.45% 201.324 NaCl 25,000 unit In 0.45 % NaCl 1 250ml.bag @ 12 UNITS/KG/HR 8.981 mls/hr IV .Q24H [facility] Rx#: [id number] Sodium Chloride 0.9% 1, 40 000 ml @ 10 mls/hr IV . Q24H [facility] Rx#:[id number] Sodium Chloride 0.9% 80 19.408 ml @ 0.25 MCG/KG/HR 1.99 mls/hr IV .Q24H [facility] with fentaNYL (PF) 1,000 mcg Rx#:[id number] propofoL 1,000 mg In 70.645 Empty Bag 1 bag @ 15 MCG/ KG/MIN 7.164 mls/hr IV . [id number] [facility] Rx#:[id number] Oral 118 240 Other 30 Output: Urine 2 450 400 Other: Voiding Method Urinal Urinal Urinal # Voids 1 ABP, PAP, CO, CI - Last Documented Arterial Blood Pressure 106/51 - Labs CBC & Chem 7: 07/13/22 12:00 07/13/22 12:00 Labs: Abnormal Lab Results - Last 24 Hours (Table) 07/12/22 07/12/22 07/13/22 Range/Units 20:25 20:37 06:09 RBC (4.30-5.90) m/uL Hgb (13.0-17.5) gm/dL Hct (39.0-53.0) % MCV (80.0-100.0) fL RDW (11.5-15.5) % Lymphocytes # (Manual) (1.0-4.8) k/uL Macrocytosis ABG pH (7.35-7.45) ABG pCO2 (35-45) mmHg ABG pO2 (83-108) mmHg ABG Total CO2 (19-24) mmol/L ABG O2 Saturation (94-97) % Chloride (98-107) mmol/L Glucose (74-99) mg/dL POC Glucose (mg/dL) 286 H 245 H (70-110) mg/dL Calcium (8.4-10.2) mg/dL Troponin I (0.000-0.034) ng/mL Total Protein (6.3-8.2) g/dL Albumin (3.5-5.0) g/dL Ur Specific [place] 1.041 H (1.001-1.035) Urine Protein 1+ H (Negative) Urine Glucose (UA) 4+ H (Negative) 07/13/22 07/13/22 07/13/22 Range/Units 11:13 11:45 12:00 RBC 3.33 L (4.30-5.90) m/uL Hgb 11.2 L (13.0-17.5) gm/dL Hct 35.0 L (39.0-53.0) % MCV 105.1 H (80.0-100.0) fL RDW 21.7 H (11.5-15.5) % Lymphocytes # (Manual) 0.69 L (1.0-4.8) k/uL Macrocytosis Marked A ABG pH (7.35-7.45) ABG pCO2 (35-45) mmHg ABG pO2 (83-108) mmHg ABG Total CO2 (19-24) mmol/L ABG O2 Saturation (94-97) % Chloride (98-107) mmol/L Glucose (74-99) mg/dL POC Glucose (mg/dL) 265 H (70-110) mg/dL Calcium (8.4-10.2) mg/dL Troponin I (0.000-0.034) ng/mL Total Protein (6.3-8.2) g/dL Albumin (3.5-5.0) g/dL Ur Specific [place] (1.001-1.035) Urine Protein Trace H (Negative) Urine Glucose (UA) 4+ H (Negative) 07/13/22 07/13/22 07/13/22 Range/Units 12:00 12:00 12:14 RBC (4.30-5.90) m/uL Hgb (13.0-17.5) gm/dL Hct (39.0-53.0) % MCV (80.0-100.0) fL RDW (11.5-15.5) % Lymphocytes # (Manual) (1.0-4.8) k/uL Macrocytosis ABG pH 7.17 L* (7.35-7.45) ABG pCO2 66 H (35-45) mmHg ABG pO2 141 H (83-108) mmHg ABG Total CO2 26 H (19-24) mmol/L ABG O2 Saturation 98.6 H (94-97) % Chloride 108 H (98-107) mmol/L Glucose 214 H (74-99) mg/dL POC Glucose (mg/dL) (70-110) mg/dL Calcium 8.1 L (8.4-10.2) mg/dL Troponin I 0.039 H* (0.000-0.034) ng/mL Total Protein 5.9 L (6.3-8.2) g/dL Albumin 3.3 L (3.5-5.0) g/dL Ur Specific [place] (1.001-1.035) Urine Protein (Negative) Urine Glucose (UA) (Negative) Microbiology - Last 24 Hours (Table) 07/12/22 07:25 Blood Culture - Preliminary Blood No Growth after 24 hours
[2022-07-13 18:22] LABS: Glucose,Whole Blood 146 mg/dL (70-110)
[2022-07-13] MEDS: CHLORHEXIDINE GLUCONATE 15 ML CUP MUCOUS MEM SCH (20:41)
[2022-07-13 23:13] LABS: Glucose,Whole Blood 210 mg/dL (70-110)
[2022-07-14 04:25] LABS: Anisocytosis Moderate; HCT 27.8 % (39.0-53.0); HGB 9.4 gm/dL (13.0-17.5); MCH 33.9 pg (25.0-35.0); MCHC 33.7 g/dL (31.0-37.0); MCV 100.5 fL (80.0-100.0); Macrocytosis Moderate; Mean Platelet Volume 9.4; Platelet Count 140 k/uL (150-450); Poikilocytosis Slight; RBC 2.77 m/uL (4.30-5.90); RDW 21.3 % (11.5-15.5); WBC 8.9 k/uL (3.8-10.6)
[2022-07-14 04:33] LABS: Calcium 8.3 mg/dL (8.4-10.2); Potassium 4.2 mmol/L (3.5-5.1)
[2022-07-14] MEDS: atenoloL 50 MG TAB PO SCH (04:58)
[2022-07-14 05:05] LABS: Band Neutrophils % 1 %; Lymphocytes # (M) 0.36 k/uL (1.0-4.8); Neutrophils % (M) 95 %; Nucleated Red Blood Cells 0 /100 WBC (0-0); Total Cells Counted 100
[2022-07-14] MEDS: SODIUM CHLORIDE 0.9% 80 ML with fentaNYL (PF) 1,000 MCG IV SCH ×2 (05:25)
[2022-07-14 05:34] LABS: ABG Base Excess -2.1 mmol/L; ABG HCO3 23 mmol/L (21-25); ABG PCO2 37 mmHg (35-45); ABG PO2 152 mmHg (83-108); ABG TCO2 24 mmol/L (19-24); Allen Test Performed? Yes
[2022-07-14 05:40] LABS: Glucose,Whole Blood 197 mg/dL (70-110)
[2022-07-14] MEDS: INSULIN ASPART (NovoLOG) 100 UNIT/ML VIAL SQ SCH ×3 (05:44→18:07)
--- NOTE | 2022-07-14 07:32 | XR ---
EXAMINATION TYPE: XR chest 1V portable DATE OF EXAM: 07/14/2022 6:29 AM COMPARISON: Chest radiograph from one day prior. TECHNIQUE: XR chest 1V portable Portable AP radiograph of the chest. CLINICAL INDICATION:Male, 77 years old with history of Tube placement; FINDINGS: Lungs/Pleura: Improved aeration of lungs on today's exam with persistent airspace opacities scattered throughout the lungs. No evidence of pneumothorax or large pleural effusion. Pulmonary vascularity: Unremarkable. Heart/mediastinum: Cardiomediastinal silhouette is unremarkable. Musculoskeletal: No acute osseous pathology. Lines/Tubes: Endotracheal tube with distal tip 8.2 cm above the little. Nasogastric tube with its distal tip and side-port projecting under the diaphragm. Right internal jugular central venous catheter with distal tip at the cavoatrial junction. IMPRESSION: 1. Improved aeration of the lungs with persistent multifocal airspace opacities. 2. Stable support tubes and line.
[2022-07-14] MEDS: NOREPINEPHRINE 4 MG in SODIUM CHLORIDE 0.9% 250 ML IV SCH (07:44)
[2022-07-14] MEDS: PIPERACILLIN-TAZOBACTAM 3.375 GM in SODIUM CHLORIDE 0.9% 100 ML IVPB SCH ×2 (08:03→16:04)
[2022-07-14] MEDS: HEPARIN SODIUM,PORCINE/PF 5,000 UNIT/0.5 ML SYRINGE SQ SCH (08:04)
[2022-07-14] MEDS: PANTOPRAZOLE 40 MG/10 ML VIAL IVP SCH (08:05)
[2022-07-14] MEDS: methylPREDNISolone SOD SUCCI 40 MG/ML 1 ML VIAL IV SCH ×2 (08:05→20:45)
[2022-07-14] MEDS: CHLORHEXIDINE GLUCONATE 15 ML CUP MUCOUS MEM SCH (08:06)
[2022-07-14] MEDS: FUROSEMIDE 10 MG/ML 4 ML VIAL IV SCH ×2 (08:06→20:45)
[2022-07-14] MEDS: GABAPENTIN 300 MG CAP PO SCH ×3 (08:07→20:39)
[2022-07-14] MEDS: CHOLECALCIFEROL 25 MCG (1000 IU) TABLET PO SCH (08:07)
[2022-07-14] MEDS: ASPIRIN 81 MG PO SCH (08:07)
[2022-07-14] MEDS: ATORVASTATIN 80 MG TAB PO SCH (08:07)
[2022-07-14] MEDS: guaiFENesin 600 MG TABLET.ER PO SCH ×2 (08:08→20:39)
[2022-07-14] MEDS: CALCIUM CARBONATE 500 MG CHEWABLE PO SCH (08:09)
[2022-07-14] MEDS ORDERED: metHOTREXate sodium 2.5 MG TAB PO SCH (09:00)
[2022-07-14] MEDS ORDERED: FUROSEMIDE 10 MG/ML 4 ML VIAL IV SCH (09:00)
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
[2022-07-14] MEDS: amLODIPine 10 MG TAB PO SCH (09:35)
[2022-07-14] MEDS: DAPAGLIFLOZIN PROPANEDIOL 10 MG TABLET PO SCH (09:35)
[2022-07-14] MEDS: atenoloL 25 MG TAB PO SCH ×2 (10:21→20:39)
[2022-07-14] MEDS ORDERED: DEXMEDETOMIDINE/0.9% NACL(PMX) 400 MCG in EMPTY BAG 1 BAG IV SCH (10:30)
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
--- NOTE | 2022-07-14 11:14 | P.PN ---
Progress Note - Text Progress Note Date: 07/14/22 The patient's hypoxia is related to his heart failure. Patient was transferred to the ICU yesterday. He was intubated. On exam his vital signs were stable. Facial swelling has improved slightly. Patient will receive diuresis and supportive care.
[2022-07-14] MEDS ORDERED: HEPARIN SODIUM 1,000 UN/ML (10ML VL) IV ONE (11:22)
[2022-07-14] MEDS ORDERED: HEPARIN SODIUM 1,000 UN/ML (10ML VL) IV PRN (11:22)
[2022-07-14 11:31] LABS: Glucose,Whole Blood 192 mg/dL (70-110)
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
[2022-07-14] MEDS: HEPARIN SOD,PORK IN 0.45% NACL 25,000 UNIT in 0.45% NACL 1 250ML.BAG IV SCH (11:45)
[2022-07-14 11:54] LABS: Partial Thromboplastin Time 32.6 sec (22.0-30.0); Prothrombin Time 10.2 sec (9.0-12.0)
[2022-07-14] MEDS: FOLIC ACID 1 MG TAB PO SCH (11:56)
--- NOTE | 2022-07-14 12:50 | P.PN ---
Subjective Patient was initially admitted for syncope was treated for sepsis secondary to urinary tract infection patient today was transferred to ICU because of her acute respiratory failure which was believed to be secondary to hypoxemia from congestive heart failure pulmonary edema but patient does have hypercapnia as well with the metabolic acidosis. 07/14/2021 Patient was pretty status and abusive improved, patient's creatinine went up to 1.34 from 0.686 and Lasix dose was cut down by bolt sawyer patient is on spontaneous breathing trial, probably will be extubated later today clinically doing well on spontaneous trial. REVIEW OF SYSTEMS: Unable to obtain as patient is intubated PHYSICAL EXAMINATION: GENERAL: Intubated sedated HEENT: Pupils are round and equally reacting to light. EOMI. No scleral icterus. No conjunctival pallor. Normocephalic, atraumatic. No pharyngeal erythema. No thyromegaly. CARDIOVASCULAR: S1 and S2 present. No murmurs, rubs, or gallops. PULMONARY: Chest is clear to auscultation, no wheezing or crackles. ABDOMEN: Soft, nontender, nondistended, normoactive bowel sounds. No palpable organomegaly. MUSCULOSKELETAL: No joint swelling or deformity. EXTREMITIES: No cyanosis, clubbing, or pedal edema. NEUROLOGICAL: Patient is sedated SKIN: No rashes. Assessment and plan -Acute hypoxic and possibly hypercapnic respiratory failure secondary to congestive heart failure, patient was started on Lasix patient is presently intubated been off ventilatory support as tolerated patient appears to have diastolic dysfunction there may be a competent of for COPD contributing to hypercapnia for which patient is on Solu-Medrol -Syncope: Patient was extensively evaluated rule out pulmonary embolism -Sepsis with shock patient is on norepinephrine possibly secondary to urinary tract infection for which patient is presently in [facility] and infectious disease is following the patient as well -Elevated troponin on admission secondary to sepsis -Type 2 diabetes mellitus -Essential hypertension -Diabetic peripheral neuropathy -History of rheumatoid arthritis DVT prophylaxis: Subcutaneous heparin Objective - Vital Signs Vital signs: Vital Signs Temp 98.2 F 07/14/22 12:00 Pulse 71 07/14/22 12:00 Resp 24 07/14/22 12:00 BP 149/88 07/13/22 12:00 Pulse Ox 97 07/14/22 12:00 FiO2 40 07/14/22 11:45 Intake & Output 07/13/22 07/14/22 07/14/22 18:59 06:59 18:59 Intake Total 620.518 541.838 421.161 Output Total 505 1560 750 Balance 115.518 -1018.162 -328.839 Weight 80 kg Intake: Intake, IV Titration 350.518 541.838 391.161 Amount Dexmedetomidine/0.9% NaCl 11.7 (Pmx) 400 mcg In Empty Bag 1 bag @ 0.2 MCG/KG/HR 4 mls/hr IV .Q24H [facility] Rx #:[id number] Heparin Sod,Pork in 0.45% 9.6 NaCl 25,000 unit In 0.45 % NaCl 1 250ml.bag @ 12 UNITS/KG/HR 9.6 mls/hr IV .Q24H [facility] Rx#:[id number] Norepinephrine 4 mg In 28.507 113.728 86.940 Sodium Chloride 0.9% 250 ml @ 0.03 MCG/KG/MIN 9. 098 mls/hr IV .Q24H [facility] Rx#:[id number] Piperacillin-Tazobactam 3 100 100 100 .375 gm In Sodium Chloride 0.9% 100 ml @ 25 mls/hr IVPB Q8HR [facility] Rx# :[id number] Sodium Chloride 0.9% 1, 60 100 50 000 ml @ 10 mls/hr IV . Q24H [facility] Rx#:[id number] Sodium Chloride 0.9% 80 19.408 46.201 14.875 ml @ 0.25 MCG/KG/HR 1.99 mls/hr IV .Q24H [facility] with fentaNYL (PF) 1,000 mcg Rx#:[id number] propofoL 1,000 mg In 142.603 181.909 118.046 Empty Bag 1 bag @ 15 MCG/ KG/MIN 7.164 mls/hr IV . [id number] [facility] Rx#:[id number] Oral 240 Other 30 30 Output: Gastric Drainage 250 Urine 505 1310 750 Other: Voiding Method Indwelling Catheter Indwelling Catheter Indwelling Catheter ABP, PAP, CO, CI - Last Documented Arterial Blood Pressure 117/46 - Labs CBC & Chem 7: 07/14/22 04:15 07/14/22 04:15 Labs: Abnormal Lab Results - Last 24 Hours (Table) 07/13/22 07/13/22 07/13/22 Range/Units 12:00 12:00 12:00 RBC 3.33 L (4.30-5.90) m/uL Hgb 11.2 L (13.0-17.5) gm/dL Hct 35.0 L (39.0-53.0) % MCV 105.1 H (80.0-100.0) fL RDW 21.7 H (11.5-15.5) % Plt Count (150-450) k/uL Neutrophils # (Manual) (1.3-7.7) k/uL Lymphocytes # (Manual) 0.69 L (1.0-4.8) k/uL Macrocytosis Marked A APTT (22.0-30.0) sec ABG pO2 (83-108) mmHg ABG O2 Saturation (94-97) % Chloride 108 H (98-107) mmol/L BUN (9-20) mg/dL Creatinine (0.66-1.25) mg/dL Glucose 214 H (74-99) mg/dL POC Glucose (mg/dL) (70-110) mg/dL Calcium 8.1 L (8.4-10.2) mg/dL Troponin I 0.039 H* (0.000-0.034) ng/mL Total Protein 5.9 L (6.3-8.2) g/dL Albumin 3.3 L (3.5-5.0) g/dL 07/13/22 07/13/22 07/14/22 Range/Units 18:19 23:11 04:15 RBC 2.77 L (4.30-5.90) m/uL Hgb 9.4 L D (13.0-17.5) gm/dL Hct 27.8 L (39.0-53.0) % MCV 100.5 H (80.0-100.0) fL RDW 21.3 H (11.5-15.5) % Plt Count 140 L (150-450) k/uL Neutrophils # (Manual) 8.50 H (1.3-7.7) k/uL Lymphocytes # (Manual) 0.36 L (1.0-4.8) k/uL Macrocytosis APTT (22.0-30.0) sec ABG pO2 (83-108) mmHg ABG O2 Saturation (94-97) % Chloride (98-107) mmol/L BUN (9-20) mg/dL Creatinine (0.66-1.25) mg/dL Glucose (74-99) mg/dL POC Glucose (mg/dL) 146 H 210 H (70-110) mg/dL Calcium (8.4-10.2) mg/dL Troponin I (0.000-0.034) ng/mL Total Protein (6.3-8.2) g/dL Albumin (3.5-5.0) g/dL 07/14/22 07/14/22 07/14/22 Range/Units 04:15 04:15 05:30 RBC (4.30-5.90) m/uL Hgb (13.0-17.5) gm/dL Hct (39.0-53.0) % MCV (80.0-100.0) fL RDW (11.5-15.5) % Plt Count (150-450) k/uL Neutrophils # (Manual) (1.3-7.7) k/uL Lymphocytes # (Manual) (1.0-4.8) k/uL Macrocytosis APTT (22.0-30.0) sec ABG pO2 152 H (83-108) mmHg ABG O2 Saturation 100.0 H (94-97) % Chloride 109 H (98-107) mmol/L BUN 25 H (9-20) mg/dL Creatinine 1.34 H (0.66-1.25) mg/dL Glucose 184 H (74-99) mg/dL POC Glucose (mg/dL) (70-110) mg/dL Calcium 8.3 L (8.4-10.2) mg/dL Troponin I 0.089 H* (0.000-0.034) ng/mL Total Protein (6.3-8.2) g/dL Albumin (3.5-5.0) g/dL 07/14/22 07/14/22 07/14/22 Range/Units 05:38 11:25 11:29 RBC (4.30-5.90) m/uL Hgb (13.0-17.5) gm/dL Hct (39.0-53.0) % MCV (80.0-100.0) fL RDW (11.5-15.5) % Plt Count (150-450) k/uL Neutrophils # (Manual) (1.3-7.7) k/uL Lymphocytes # (Manual) (1.0-4.8) k/uL Macrocytosis APTT 32.6 H (22.0-30.0) sec ABG pO2 (83-108) mmHg ABG O2 Saturation (94-97) % Chloride (98-107) mmol/L BUN (9-20) mg/dL Creatinine (0.66-1.25) mg/dL Glucose (74-99) mg/dL POC Glucose (mg/dL) 197 H 192 H (70-110) mg/dL Calcium (8.4-10.2) mg/dL Troponin I (0.000-0.034) ng/mL Total Protein (6.3-8.2) g/dL Albumin (3.5-5.0) g/dL Microbiology - Last 24 Hours (Table) 07/12/22 07:25 Blood Culture - Preliminary Blood No Growth after 48 hours 07/13/22 12:30 Gram Stain - Preliminary Sputum Sputum Culture - Preliminary
[2022-07-14 15:32] LABS: ABG Base Excess -0.8 mmol/L; ABG HCO3 24 mmol/L (21-25); ABG Oxygen Saturation 98.8 % (94-97); ABG PCO2 38 mmHg (35-45); ABG PH 7.41 (7.35-7.45); ABG PO2 138 mmHg (83-108); ABG TCO2 25 mmol/L (19-24); Allen Test Performed? Yes
[2022-07-14] MEDS: SODIUM CHLORIDE 0.9% 1,000 ML IV SCH (16:04)
[2022-07-14 17:49] LABS: Glucose,Whole Blood 208 mg/dL (70-110)
[2022-07-14] MEDS ORDERED: metFORMIN 500 MG TAB PO SCH (21:00)
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
[2022-07-14 23:56] LABS: Glucose,Whole Blood 187 mg/dL (70-110)
[2022-07-15] MEDS: PIPERACILLIN-TAZOBACTAM 3.375 GM in SODIUM CHLORIDE 0.9% 100 ML IVPB SCH ×3 (00:13→16:03)
[2022-07-15] MEDS: INSULIN ASPART (NovoLOG) 100 UNIT/ML VIAL SQ SCH ×5 (00:14→20:45)
[2022-07-15 05:10] LABS: Anisocytosis Moderate; HCT 26.1 % (39.0-53.0); HGB 8.8 gm/dL (13.0-17.5); MCH 33.9 pg (25.0-35.0); MCHC 33.6 g/dL (31.0-37.0); MCV 100.9 fL (80.0-100.0); Macrocytosis Moderate; Platelet Count 116 k/uL (150-450); Poikilocytosis Slight; RBC 2.59 m/uL (4.30-5.90); RDW 21.2 % (11.5-15.5); WBC 4.4 k/uL (3.8-10.6)
[2022-07-15 05:23] LABS: Partial Thromboplastin Time 50.2 sec (22.0-30.0); Prothrombin Time 10.2 sec (9.0-12.0)
[2022-07-15 05:33] LABS: Calcium 8.2 mg/dL (8.4-10.2); Potassium 3.8 mmol/L (3.5-5.1)
[2022-07-15 05:38] LABS: Lymphocytes # (M) 0.22 k/uL (1.0-4.8); Monocytes # (M) 0.13 k/uL (0-1.0); Neutrophils # (M) 4.05 k/uL (1.3-7.7); Neutrophils % (M) 92 %; Nucleated Red Blood Cells 0 /100 WBC (0-0); Total Cells Counted 100
[2022-07-15] MEDS ORDERED: Potassium Replacement Protocol 1 EACH MISC MISCELLANE PRN (06:13)
[2022-07-15] MEDS: POTASSIUM CHLORIDE 10 MEQ in WATER FOR INJECTION 1 100ML.BAG IVPB SCH (06:19)
[2022-07-15] MEDS ORDERED: POTASSIUM CHLORIDE 20 MEQ in WATER FOR INJECTION 1 100ML.BAG IVPB ONE (06:30)
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
[2022-07-15] MEDS ORDERED: ENOXAPARIN 40 MG/0.4 ML SYRINGE SQ SCH (09:00)
[2022-07-15] MEDS: atenoloL 25 MG TAB PO SCH ×2 (10:14→20:16)
[2022-07-15] MEDS: amLODIPine 10 MG TAB PO SCH (10:14)
[2022-07-15] MEDS: FUROSEMIDE 10 MG/ML 4 ML VIAL IV SCH ×2 (10:14→20:17)
[2022-07-15] MEDS: PANTOPRAZOLE 40 MG/10 ML VIAL IVP SCH (10:14)
[2022-07-15] MEDS: DAPAGLIFLOZIN PROPANEDIOL 10 MG TABLET PO SCH (10:15)
[2022-07-15] MEDS: CALCIUM CARBONATE 500 MG CHEWABLE PO SCH (10:15)
[2022-07-15] MEDS: CHOLECALCIFEROL 25 MCG (1000 IU) TABLET PO SCH (10:15)
[2022-07-15] MEDS: ASPIRIN 81 MG PO SCH (10:15)
[2022-07-15] MEDS: methylPREDNISolone SOD SUCCI 40 MG/ML 1 ML VIAL IV SCH ×2 (10:15→20:17)
[2022-07-15] MEDS: guaiFENesin 600 MG TABLET.ER PO SCH ×2 (10:15→20:16)
[2022-07-15] MEDS: GABAPENTIN 300 MG CAP PO SCH ×3 (10:15→21:56)
[2022-07-15] MEDS: ATORVASTATIN 80 MG TAB PO SCH (10:15)
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
[2022-07-15 11:19] LABS: Glucose,Whole Blood 166 mg/dL (70-110)
[2022-07-15] MEDS: FOLIC ACID 1 MG TAB PO SCH (11:33)
[2022-07-15] MEDS: HEPARIN SOD,PORK IN 0.45% NACL 25,000 UNIT in 0.45% NACL 1 250ML.BAG IV SCH (14:18)
[2022-07-15] MEDS: NOREPINEPHRINE 4 MG in SODIUM CHLORIDE 0.9% 250 ML IV SCH (14:42)
[2022-07-15] MEDS: IPRATROPIUM-ALBUTEROL 3 ML NEB INHALATION SCH ×2 (15:30→19:20)
[2022-07-15 16:12] LABS: Glucose,Whole Blood 358 mg/dL (70-110)
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
[2022-07-15 20:47] LABS: Glucose,Whole Blood 345 mg/dL (70-110)
[2022-07-16] MEDS: PIPERACILLIN-TAZOBACTAM 3.375 GM in SODIUM CHLORIDE 0.9% 100 ML IVPB SCH (00:14)
[2022-07-16] MEDS: SODIUM CHLORIDE 0.9% 1,000 ML IV SCH (02:35)
[2022-07-16 06:25] LABS: Anisocytosis Moderate; HCT 29.4 % (39.0-53.0); HGB 9.7 gm/dL (13.0-17.5); MCHC 33.1 g/dL (31.0-37.0); MCV 102.7 fL (80.0-100.0); Macrocytosis Marked; Mean Platelet Volume 8.8; Platelet Count 127 k/uL (150-450); Poikilocytosis Slight; RBC 2.86 m/uL (4.30-5.90); RDW 20.7 % (11.5-15.5); WBC 4.2 k/uL (3.8-10.6)
[2022-07-16] MEDS ORDERED: INSULIN DETEMIR (LEVEMIR) 100 UNIT/ML SYR SQ SCH ×2 (07:00→21:00)
[2022-07-16 07:01] LABS: Calcium 8.1 mg/dL (8.4-10.2); Potassium 4.2 mmol/L (3.5-5.1)
[2022-07-16 07:06] LABS: Glucose,Whole Blood 519 mg/dL (70-110)
[2022-07-16] MEDS: INSULIN ASPART (NovoLOG) 100 UNIT/ML VIAL SQ SCH ×5 (07:07→20:35)
[2022-07-16 07:09] LABS: Lymphocytes # (M) 0.46 k/uL (1.0-4.8); Neutrophils # (M) 3.74 k/uL (1.3-7.7); Neutrophils % (M) 89 %; Nucleated Red Blood Cells 0 /100 WBC (0-0); Polychromasia Present; Total Cells Counted 100
[2022-07-16] MEDS: IPRATROPIUM-ALBUTEROL 3 ML NEB INHALATION SCH ×3 (07:18→19:05)
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
--- NOTE | 2022-07-16 08:29 | XR ---
EXAMINATION TYPE: XR chest 1V portable DATE OF EXAM: 07/16/2022 COMPARISON: 07/14/2022 HISTORY: Tube placement TECHNIQUE: Single frontal view of the chest is obtained. FINDINGS: ET and NG tube have been removed. Central line stable. Bilateral consolidation and pleural effusion greater on the left stable heart is enlarged. Interstitial prominence and no pneumothorax. Hypertrophic changes of the spine. Atherosclerotic change aorta. Mild aneurysmal dilation cannot excl ude IMPRESSION: 1. Correlate for CHF stable in appearance. Otherwise consider pneumonia
[2022-07-16] MEDS ORDERED: INSULIN DETEMIR (LEVEMIR) 100 UNIT/ML SYR SQ ONE (08:30)
[2022-07-16] MEDS: predniSONE 10 MG TAB PO SCH (08:37)
[2022-07-16] MEDS: FUROSEMIDE 40 MG TAB PO SCH (08:37)
[2022-07-16] MEDS: atenoloL 25 MG TAB PO SCH ×2 (08:37→20:36)
[2022-07-16] MEDS: GABAPENTIN 300 MG CAP PO SCH ×3 (08:37→23:26)
[2022-07-16] MEDS: DAPAGLIFLOZIN PROPANEDIOL 10 MG TABLET PO SCH (08:38)
[2022-07-16] MEDS: CALCIUM CARBONATE 500 MG CHEWABLE PO SCH (08:38)
[2022-07-16] MEDS: APIXABAN 5 MG TAB PO SCH ×2 (08:38→20:36)
[2022-07-16] MEDS: CHOLECALCIFEROL 25 MCG (1000 IU) TABLET PO SCH (08:38)
[2022-07-16] MEDS: amLODIPine 10 MG TAB PO SCH (08:38)
[2022-07-16] MEDS: ATORVASTATIN 80 MG TAB PO SCH (08:38)
[2022-07-16] MEDS: ASPIRIN 81 MG PO SCH (08:38)
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
[2022-07-16 11:17] LABS: Glucose,Whole Blood 353 mg/dL (70-110)
[2022-07-16] MEDS: FOLIC ACID 1 MG TAB PO SCH (11:23)
[2022-07-16] MEDS: Semaglutide [Ozempic] 1 MG/0.75 ML Each SQ SCH (12:36)
[2022-07-16] MEDS ORDERED: DEXTROSE 50% SYRINGE 50 ML IVP PRN ×2 (16:03)
[2022-07-16 16:39] LABS: Glucose,Whole Blood 404 mg/dL (70-110)
[2022-07-16 20:10] LABS: Glucose,Whole Blood 240 mg/dL (70-110)
[2022-07-16] MEDS: INSULIN DETEMIR (LEVEMIR) 100 UNIT/ML SYR SQ SCH (20:36)
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
[2022-07-17] MEDS: INSULIN ASPART (NovoLOG) 100 UNIT/ML VIAL SQ SCH ×7 (06:44→20:49)
[2022-07-17 06:45] LABS: Glucose,Whole Blood 76 mg/dL (70-110)
[2022-07-17] MEDS: INSULIN DETEMIR (LEVEMIR) 100 UNIT/ML SYR SQ SCH (06:48)
[2022-07-17] MEDS: PANTOPRAZOLE 40 MG TABLET PO SCH (06:48)
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
[2022-07-17] MEDS: IPRATROPIUM-ALBUTEROL 3 ML NEB INHALATION SCH ×3 (07:29→19:33)
[2022-07-17] MEDS: SENNOSIDES 8.6 MG TAB PO SCH ×2 (07:51→20:48)
[2022-07-17 08:09] LABS: Calcium 8.9 mg/dL (8.4-10.2); Potassium 3.7 mmol/L (3.5-5.1)
[2022-07-17 08:25] LABS: Anisocytosis Moderate; HCT 33.7 % (39.0-53.0); HGB 11.2 gm/dL (13.0-17.5); MCH 33.5 pg (25.0-35.0); MCHC 33.4 g/dL (31.0-37.0); MCV 100.4 fL (80.0-100.0); Macrocytosis Moderate; Mean Platelet Volume 8.4; Platelet Count 235 k/uL (150-450); Poikilocytosis Slight; RBC 3.36 m/uL (4.30-5.90); RDW 20.3 % (11.5-15.5); WBC 6.5 k/uL (3.8-10.6)
[2022-07-17 08:30] LABS: Glucose,Whole Blood 53 mg/dL (70-110)
[2022-07-17 08:47] LABS: Glucose,Whole Blood 46 mg/dL (70-110)
[2022-07-17 09:18] LABS: Glucose,Whole Blood 116 mg/dL (70-110)
[2022-07-17 10:19] LABS: Glucose,Whole Blood 149 mg/dL (70-110)
[2022-07-17] MEDS: amLODIPine 10 MG TAB PO SCH (10:31)
[2022-07-17] MEDS: APIXABAN 5 MG TAB PO SCH ×2 (10:31→20:48)
[2022-07-17] MEDS: TAMSULOSIN 0.4 MG CAP.ER.24H PO SCH (10:31)
[2022-07-17] MEDS: FUROSEMIDE 40 MG TAB PO SCH (10:31)
[2022-07-17] MEDS: predniSONE 10 MG TAB PO SCH (10:31)
[2022-07-17] MEDS: CALCIUM CARBONATE 500 MG CHEWABLE PO SCH (10:32)
[2022-07-17] MEDS: GABAPENTIN 300 MG CAP PO SCH ×3 (10:32→20:48)
[2022-07-17] MEDS: ATORVASTATIN 80 MG TAB PO SCH (10:32)
[2022-07-17] MEDS: atenoloL 25 MG TAB PO SCH ×2 (10:32→20:49)
[2022-07-17] MEDS: ASPIRIN 81 MG PO SCH (10:32)
[2022-07-17] MEDS: DAPAGLIFLOZIN PROPANEDIOL 10 MG TABLET PO SCH (10:37)
[2022-07-17] MEDS: CHOLECALCIFEROL 25 MCG (1000 IU) TABLET PO SCH (10:37)
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
[2022-07-17 11:44] LABS: Glucose,Whole Blood 158 mg/dL (70-110)
[2022-07-17] MEDS: FOLIC ACID 1 MG TAB PO SCH (12:58)
[2022-07-17 13:27] LABS: Lymphocytes # (M) 1.24 k/uL (1.0-4.8); Monocytes # (M) 0.72 k/uL (0-1.0); Neutrophils # (M) 4.55 k/uL (1.3-7.7); Neutrophils % (M) 70 %; Nucleated Red Blood Cells 0 /100 WBC (0-0); Total Cells Counted 100
[2022-07-17 13:29] LABS: Tear Drop Cells Present
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
[2022-07-17 17:46] LABS: Glucose,Whole Blood 170 mg/dL (70-110)
[2022-07-17] MEDS: PIPERACILLIN-TAZOBACTAM 3.375 GM in SODIUM CHLORIDE 0.9% 100 ML IVPB SCH (18:21)
[2022-07-17 20:38] LABS: Glucose,Whole Blood 201 mg/dL (70-110)
[2022-07-17] MEDS: atenoloL 50 MG TAB PO SCH (22:36)
[2022-07-18 06:07] LABS: Glucose,Whole Blood 98 mg/dL (70-110)
[2022-07-18] MEDS: INSULIN ASPART (NovoLOG) 100 UNIT/ML VIAL SQ SCH ×4 (06:31→21:13)
[2022-07-18] MEDS: PANTOPRAZOLE 40 MG TABLET PO SCH (06:32)
[2022-07-18 07:21] LABS: African American GFR (CKD) >90 (>60 ml/min/1.73 sqM); Anion Gap 8 mmol/L; Blood Urea Nitrogen 29 mg/dL (9-20); Calcium 8.7 mg/dL (8.4-10.2); Carbon Dioxide 25 mmol/L (22-30); Chloride 103 mmol/L (98-107); Glucose 89 mg/dL (74-99); Magnesium 2.3 mg/dL (1.6-2.3); Non-African American GFR(CKD) 83 (>60 ml/min/1.73 sqM); Potassium 4.1 mmol/L (3.5-5.1); Sodium 136 mmol/L (137-145)
[2022-07-18] MEDS: IPRATROPIUM-ALBUTEROL 3 ML NEB INHALATION SCH ×3 (08:08→19:36)
[2022-07-18] MEDS: CHOLECALCIFEROL 25 MCG (1000 IU) TABLET PO SCH (09:20)
[2022-07-18] MEDS: atenoloL 25 MG TAB PO SCH ×2 (09:20→21:09)
[2022-07-18] MEDS: CALCIUM CARBONATE 500 MG CHEWABLE PO SCH (09:20)
[2022-07-18] MEDS: TAMSULOSIN 0.4 MG CAP.ER.24H PO SCH (09:20)
[2022-07-18] MEDS: APIXABAN 5 MG TAB PO SCH ×2 (09:20→21:09)
[2022-07-18] MEDS: predniSONE 10 MG TAB PO SCH (09:20)
[2022-07-18] MEDS: FUROSEMIDE 40 MG TAB PO SCH (09:20)
[2022-07-18] MEDS: SENNOSIDES 8.6 MG TAB PO SCH ×2 (09:20→21:10)
[2022-07-18] MEDS: amLODIPine 10 MG TAB PO SCH (09:20)
[2022-07-18] MEDS: ATORVASTATIN 80 MG TAB PO SCH (09:20)
[2022-07-18] MEDS: GABAPENTIN 300 MG CAP PO SCH ×3 (09:20→21:09)
[2022-07-18] MEDS: DAPAGLIFLOZIN PROPANEDIOL 10 MG TABLET PO SCH (09:21)
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
[2022-07-18 10:56] LABS: Glucose,Whole Blood 125 mg/dL (70-110)
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
[2022-07-18] MEDS: ACETAMINOPHEN TAB 325 MG TAB PO PRN (11:11)
[2022-07-18 11:23] LABS: Glucose,Whole Blood 137 mg/dL (70-110)
--- NOTE | 2022-07-18 11:54 | CT ---
EXAMINATION TYPE: CT brain wo con CT DLP: 1098.2 mGycm, Automated exposure control for dose reduction was used. DATE OF EXAM: 07/18/2022 11:39 AM COMPARISON: 07/10/2022 CLINICAL INDICATION:Male, 77 years old with history of Altered mental status, TECHNIQUE: Brain: Axial CT images of the brain were obtained with coronal and sagittal reformats created and rev iewed. Contrast used: None. Oral contrast used: None. FINDINGS: Brain: Extra-axial spaces: No abnormal extra-axial fluid collections. Ventricular system: Dilatation in proportion to cerebral atrophy. Cerebral parenchyma: Cerebral atrophy. No acute intraparenchymal hemorrhage or mass effect. The kinsey -white junction is well differentiated. Scattered hypoattenuating areas are seen within the white mat ter. Cerebellum: Unremarkable. Mass effect: No evidence of midline shift. Intracranial vasculature: unremarkable Soft tissues: Normal. Calvarium/osseous structures: No depressed skull fracture. Paranasal sinuses and mastoid air cells: Mild scattered paranasal sinus disease.5 Visualized orbits: Orbital contents are intact. IMPRESSION: 1. No acute intracranial process. 2. Nonspecific white matter changes, likely secondary to chronic small vessel ischemic disease.
[2022-07-18] MEDS: FOLIC ACID 1 MG TAB PO SCH (12:03)
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
--- NOTE | 2022-07-18 13:33 | XR ---
EXAMINATION TYPE: XR chest 1V portable DATE OF EXAM: 07/18/2022 COMPARISON: 07/16/2022 HISTORY: Fever TECHNIQUE: Single frontal view of the chest is obtained. FINDINGS: Limited inspiration with bibasilar subsegmental consolidation and effusion. No overt failu re. Heart is enlarged. No sizable pneumothorax. Metallic device overlying left hemithorax. Atheroscle rotic change aorta. IMPRESSION: 1. Bilateral lower lobe infiltrate and tiny pleural effusion similar to the prior exam. 2. Improving interstitial correlate for improving venous congestion or pneumonitis.
[2022-07-18 13:59] LABS: ALT 32 U/L (4-49); AST 31 U/L (17-59); African American GFR (CKD) 72 (>60 ml/min/1.73 sqM); Albumin 2.6 g/dL (3.5-5.0); Albumin/Globulin Ratio 1.1; Alkaline Phosphatase 43 U/L (38-126); Anion Gap 3 mmol/L; Blood Urea Nitrogen 29 mg/dL (9-20); C Reactive Protein 3.6 mg/dL (<1.0); Carbon Dioxide 28 mmol/L (22-30); Chloride 101 mmol/L (98-107); Globulin 2.4 g/dL; Glucose 185 mg/dL (74-99); Non-African American GFR(CKD) 62 (>60 ml/min/1.73 sqM); Sodium 132 mmol/L (137-145); Total Bilirubin 0.9 mg/dL (0.2-1.3)
[2022-07-18 14:01] LABS: Anisocytosis Moderate; HCT 27.8 % (39.0-53.0); MCH 33.8 pg (25.0-35.0); MCHC 34.1 g/dL (31.0-37.0); MCV 99.3 fL (80.0-100.0); Macrocytosis Moderate; Mean Platelet Volume 8.5; Platelet Count 157 k/uL (150-450); Poikilocytosis Slight; RDW 20.2 % (11.5-15.5); WBC 5.3 k/uL (3.8-10.6)
[2022-07-18 14:02] LABS: HGB 9.5 gm/dL (13.0-17.5)
[2022-07-18 14:14] LABS: Eosinophils # (M) 0.05 k/uL (0-0.7); Lymphocytes # (M) 0.53 k/uL (1.0-4.8); Monocytes # (M) 0.48 k/uL (0-1.0); Neutrophils # (M) 4.24 k/uL (1.3-7.7); Neutrophils % (M) 80 %; Nucleated Red Blood Cells 0 /100 WBC (0-0); Total Cells Counted 100
[2022-07-18] MEDS: IOPAMIDOL CONTRAST (ORAL USE) VIAL PO PRN ×2 (14:58→15:47)
[2022-07-18] MEDS: PIPERACILLIN-TAZOBACTAM 3.375 GM in SODIUM CHLORIDE 0.9% 100 ML IVPB SCH ×2 (15:42→23:00)
[2022-07-18 15:52] LABS: Appearance,Urine Clear (Clear); Bilirubin,Urine Negative (Negative); Blood,Urine Negative (Negative); Color,Urine Yellow; Glucose,Urine (UA) 4+ (Negative); Ketones,Urine Negative (Negative); Leukocyte Esterase,Urine Negative (Negative); Mucus,Urine Rare /hpf; Nitrite,Urine Negative (Negative); Protein,Urine 1+ (Negative); Specific Gravity,Urine 1.011 (1.001-1.035); Squamous Epithelial Cell,Urine <1 /hpf (0-4); Urobilinogen,Urine <2.0 mg/dL (<2.0); WBC,Urine <1 /hpf (0-5)
[2022-07-18 16:16] LABS: Glucose,Whole Blood 349 mg/dL (70-110)
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
[2022-07-18] MEDS: HYDROCORTISONE SUCCINATE 100 MG/2 ML VIAL IV SCH (17:14)
--- NOTE | 2022-07-18 17:14 | CT ---
EXAMINATION TYPE: CT abdomen pelvis w con 07/18/2022 COMPARISON: 07/10/2022 HISTORY: fever and abdominal pain. CT DLP: 1235.6 mGycm, Automated Exposure Control for Dose Reduction was Utilized. CONTRAST: CT scan of the abdomen and pelvis is performed with oral and with IV Contrast, patient inje cted with 90 mL of Isovue 300. FINDINGS: LUNG BASES: No acute findings. Moderate cardiomegaly with panchamber enlargement and prominent coron berry calcifications. Aortic valve calcifications are also noted. LIVER/GB: No significant abnormality is appreciated. PANCREAS: No significant abnormality is seen. SPLEEN: No significant abnormality is seen. ADRENALS: Left adrenal nodule redemonstrated. Right adrenal negative. KIDNEYS: No significant abnormality is seen. BOWEL: No acute findings. Prominent pancolonic stool volume is incidentally seen. PROSTATE/SEMINAL VESICLES: No gross abnormality seen. LYMPH NODES: No greater than 1cm abdominal or pelvic lymph nodes are appreciated. OSSEOUS STRUCTURES: No significant abnormality is seen. OTHER: Infrarenal abdominal aortic aneurysm measures 4.9 cm AP by 4.7 cm transverse. The celiac axis, SMA, and GRAYSON are patent. IMPRESSION: No acute finding to account for patient's clinical symptoms.
[2022-07-18] MEDS: SODIUM CHLORIDE 0.9% 1,000 ML IV SCH (19:55)
[2022-07-18 20:26] LABS: Glucose,Whole Blood 307 mg/dL (70-110)
[2022-07-19] MEDS: HYDROCORTISONE SUCCINATE 100 MG/2 ML VIAL IV SCH ×2 (00:34→08:12)
[2022-07-19] MEDS: SODIUM CHLORIDE 0.9% 1,000 ML IV SCH ×2 (00:35→12:29)
[2022-07-19] MEDS: PIPERACILLIN-TAZOBACTAM 3.375 GM in SODIUM CHLORIDE 0.9% 100 ML IVPB SCH ×3 (06:08→21:23)
[2022-07-19 06:16] LABS: Glucose,Whole Blood 172 mg/dL (70-110)
[2022-07-19] MEDS: INSULIN ASPART (NovoLOG) 100 UNIT/ML VIAL SQ SCH ×4 (06:16→21:22)
[2022-07-19] MEDS: PANTOPRAZOLE 40 MG TABLET PO SCH (06:16)
[2022-07-19] MEDS: IPRATROPIUM-ALBUTEROL 3 ML NEB INHALATION SCH (08:00)
[2022-07-19] MEDS: TAMSULOSIN 0.4 MG CAP.ER.24H PO SCH (08:02)
[2022-07-19] MEDS: ATORVASTATIN 80 MG TAB PO SCH (08:02)
[2022-07-19] MEDS: CALCIUM CARBONATE 500 MG CHEWABLE PO SCH (08:02)
[2022-07-19] MEDS: SENNOSIDES 8.6 MG TAB PO SCH ×2 (08:02→21:21)
[2022-07-19] MEDS: CHOLECALCIFEROL 25 MCG (1000 IU) TABLET PO SCH (08:03)
[2022-07-19] MEDS: DAPAGLIFLOZIN PROPANEDIOL 10 MG TABLET PO SCH (08:03)
[2022-07-19] MEDS: GABAPENTIN 300 MG CAP PO SCH ×3 (08:03→21:22)
[2022-07-19] MEDS: FUROSEMIDE 40 MG TAB PO SCH (08:03)
[2022-07-19] MEDS: APIXABAN 5 MG TAB PO SCH ×2 (08:03→21:21)
[2022-07-19] MEDS: atenoloL 25 MG TAB PO SCH ×2 (08:03→21:24)
[2022-07-19 11:04] LABS: Glucose,Whole Blood 227 mg/dL (70-110)
[2022-07-19] MEDS: FOLIC ACID 1 MG TAB PO SCH (12:24)
[2022-07-19] MEDS: NYSTATIN 100,000 UNIT/ML SUSP 500,000 UNIT/5 ML CUP PO SCH ×3 (12:28→21:22)
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
[2022-07-19 16:35] LABS: Glucose,Whole Blood 380 mg/dL (70-110)
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
--- NOTE | 2022-07-19 17:53 | XR ---
EXAMINATION TYPE: XR chest 2V DATE OF EXAM: 07/19/2022 COMPARISON: 07/18/2022 HISTORY: Pneumonia follow-up TECHNIQUE: FINDINGS: There is some interstitial infiltrates and atelectasis in the lower lung kemp. There are chest leads. No pleural effusion. IMPRESSION: Interstitial infiltrates and atelectasis in the mid and lower lung kemp. There is sligh tly improved inspiration compared to yesterday. No evidence of a new pulmonary infiltrate.
[2022-07-19 20:51] LABS: Glucose,Whole Blood 292 mg/dL (70-110)
[2022-07-20] MEDS: ACETAMINOPHEN TAB 325 MG TAB PO PRN ×3 (01:42→16:46)
[2022-07-20] MEDS: SODIUM CHLORIDE 0.9% 1,000 ML IV SCH ×3 (03:38→17:51)
[2022-07-20 04:36] LABS: Anisocytosis Moderate; HCT 27.1 % (39.0-53.0); Hyperchromasia Slight; MCH 32.7 pg (25.0-35.0); MCHC 33.3 g/dL (31.0-37.0); MCV 98.4 fL (80.0-100.0); Macrocytosis Slight; Mean Platelet Volume 8.7; Platelet Count 152 k/uL (150-450); Poikilocytosis Moderate; RBC 2.75 m/uL (4.30-5.90); RDW 20.5 % (11.5-15.5); WBC 5.4 k/uL (3.8-10.6)
[2022-07-20 04:50] LABS: Band Neutrophils % 3 %; Eosinophils # (M) 0.11 k/uL (0-0.7); Lymphocytes # (M) 0.92 k/uL (1.0-4.8); Monocytes # (M) 0.32 k/uL (0-1.0); Neutrophils % (M) 72 %; Nucleated Red Blood Cells 0 /100 WBC (0-0); Total Cells Counted 100
[2022-07-20 04:51] LABS: Anisocytosis (M) Present; Poikilocytosis (M) Present
[2022-07-20 05:55] LABS: Glucose,Whole Blood 122 mg/dL (70-110)
[2022-07-20] MEDS: PANTOPRAZOLE 40 MG TABLET PO SCH (06:24)
[2022-07-20] MEDS: PIPERACILLIN-TAZOBACTAM 3.375 GM in SODIUM CHLORIDE 0.9% 100 ML IVPB SCH ×3 (06:24→21:07)
[2022-07-20] MEDS: INSULIN ASPART (NovoLOG) 100 UNIT/ML VIAL SQ SCH ×4 (06:24→21:07)
[2022-07-20] MEDS: APIXABAN 5 MG TAB PO SCH ×2 (08:37→21:06)
[2022-07-20] MEDS: CALCIUM CARBONATE 500 MG CHEWABLE PO SCH (08:37)
[2022-07-20] MEDS: ATORVASTATIN 80 MG TAB PO SCH (08:37)
[2022-07-20] MEDS: SENNOSIDES 8.6 MG TAB PO SCH ×2 (08:38→21:06)
[2022-07-20] MEDS: GABAPENTIN 300 MG CAP PO SCH ×3 (08:38→21:06)
[2022-07-20] MEDS: atenoloL 25 MG TAB PO SCH ×2 (08:38→21:06)
[2022-07-20] MEDS: FUROSEMIDE 40 MG TAB PO SCH (08:38)
[2022-07-20] MEDS: DAPAGLIFLOZIN PROPANEDIOL 10 MG TABLET PO SCH (08:38)
[2022-07-20] MEDS: NYSTATIN 100,000 UNIT/ML SUSP 500,000 UNIT/5 ML CUP PO SCH ×4 (08:38→21:07)
[2022-07-20] MEDS: CHOLECALCIFEROL 25 MCG (1000 IU) TABLET PO SCH (08:38)
[2022-07-20] MEDS: TAMSULOSIN 0.4 MG CAP.ER.24H PO SCH (08:38)
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
[2022-07-20 12:19] LABS: Glucose,Whole Blood 129 mg/dL (70-110)
[2022-07-20] MEDS: FOLIC ACID 1 MG TAB PO SCH (12:48)
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
[2022-07-20 16:06] LABS: Glucose,Whole Blood 264 mg/dL (70-110)
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
[2022-07-20 20:10] LABS: Glucose,Whole Blood 317 mg/dL (70-110)
[2022-07-21] MEDS: ACETAMINOPHEN TAB 325 MG TAB PO PRN ×3 (03:26→19:58)
[2022-07-21] MEDS: SODIUM CHLORIDE 0.9% 1,000 ML IV SCH ×2 (05:46→13:09)
[2022-07-21] MEDS: PIPERACILLIN-TAZOBACTAM 3.375 GM in SODIUM CHLORIDE 0.9% 100 ML IVPB SCH ×3 (05:46→20:59)
[2022-07-21 05:57] LABS: Glucose,Whole Blood 131 mg/dL (70-110)
[2022-07-21] MEDS: INSULIN ASPART (NovoLOG) 100 UNIT/ML VIAL SQ SCH ×4 (06:06→20:59)
[2022-07-21] MEDS: PANTOPRAZOLE 40 MG TABLET PO SCH (06:35)
[2022-07-21] MEDS: NYSTATIN 100,000 UNIT/ML SUSP 500,000 UNIT/5 ML CUP PO SCH ×4 (07:33→21:04)
[2022-07-21] MEDS: FUROSEMIDE 40 MG TAB PO SCH (07:34)
[2022-07-21] MEDS: GABAPENTIN 300 MG CAP PO SCH ×3 (07:34→20:59)
[2022-07-21] MEDS: ATORVASTATIN 80 MG TAB PO SCH (07:34)
[2022-07-21] MEDS: SENNOSIDES 8.6 MG TAB PO SCH ×2 (07:34→20:59)
[2022-07-21] MEDS: TAMSULOSIN 0.4 MG CAP.ER.24H PO SCH (07:34)
[2022-07-21] MEDS: APIXABAN 5 MG TAB PO SCH ×2 (07:34→20:59)
[2022-07-21] MEDS: CALCIUM CARBONATE 500 MG CHEWABLE PO SCH (07:34)
[2022-07-21] MEDS: DAPAGLIFLOZIN PROPANEDIOL 10 MG TABLET PO SCH (07:34)
[2022-07-21] MEDS: CHOLECALCIFEROL 25 MCG (1000 IU) TABLET PO SCH (07:34)
[2022-07-21] MEDS: atenoloL 25 MG TAB PO SCH ×2 (07:34→20:59)
[2022-07-21 11:22] LABS: Glucose,Whole Blood 132 mg/dL (70-110)
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
[2022-07-21] MEDS: FOLIC ACID 1 MG TAB PO SCH (11:34)
[2022-07-21 16:52] LABS: Glucose,Whole Blood 160 mg/dL (70-110)
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
[2022-07-21 20:28] LABS: Glucose,Whole Blood 208 mg/dL (70-110)
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
[2022-07-22] MEDS: SODIUM CHLORIDE 0.9% 1,000 ML IV SCH ×3 (01:42→21:46)
[2022-07-22 06:04] LABS: Glucose,Whole Blood 99 mg/dL (70-110)
[2022-07-22] MEDS: PIPERACILLIN-TAZOBACTAM 3.375 GM in SODIUM CHLORIDE 0.9% 100 ML IVPB SCH ×2 (06:23→13:37)
[2022-07-22] MEDS: INSULIN ASPART (NovoLOG) 100 UNIT/ML VIAL SQ SCH ×4 (06:24→21:46)
[2022-07-22] MEDS: PANTOPRAZOLE 40 MG TABLET PO SCH (06:24)
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
[2022-07-22] MEDS: ATORVASTATIN 80 MG TAB PO SCH (09:48)
[2022-07-22] MEDS: APIXABAN 5 MG TAB PO SCH ×2 (09:48→21:46)
[2022-07-22] MEDS: CALCIUM CARBONATE 500 MG CHEWABLE PO SCH (09:48)
[2022-07-22] MEDS: GABAPENTIN 300 MG CAP PO SCH ×3 (09:48→21:45)
[2022-07-22] MEDS: atenoloL 25 MG TAB PO SCH ×2 (09:49→21:45)
[2022-07-22] MEDS: SENNOSIDES 8.6 MG TAB PO SCH ×2 (09:49→21:46)
[2022-07-22] MEDS: TAMSULOSIN 0.4 MG CAP.ER.24H PO SCH (09:49)
[2022-07-22] MEDS: DAPAGLIFLOZIN PROPANEDIOL 10 MG TABLET PO SCH (09:49)
[2022-07-22] MEDS: FUROSEMIDE 40 MG TAB PO SCH (09:49)
[2022-07-22] MEDS: CHOLECALCIFEROL 25 MCG (1000 IU) TABLET PO SCH (09:49)
[2022-07-22] MEDS: NYSTATIN 100,000 UNIT/ML SUSP 500,000 UNIT/5 ML CUP PO SCH ×4 (09:50→21:45)
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
[2022-07-22 11:38] LABS: Glucose,Whole Blood 160 mg/dL (70-110)
[2022-07-22] MEDS: FOLIC ACID 1 MG TAB PO SCH (13:37)
[2022-07-22 16:48] LABS: Glucose,Whole Blood 134 mg/dL (70-110)
[2022-07-22] MEDS ORDERED: VANCOMYCIN IV PER PHARMACY 1 EACH MISC MISCELLANE PRN (18:20)
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
[2022-07-22] MEDS: CEFEPIME 2 GM in SODIUM CHLORIDE 0.9% 100 ML IVPB SCH (18:53)
[2022-07-22 21:34] LABS: Glucose,Whole Blood 127 mg/dL (70-110)
[2022-07-22] MEDS: VANCOMYCIN 1,500 MG in SODIUM CHLORIDE 0.9% 500 ML 500 ML IVPB SCH (21:45)
--- NOTE | 2022-07-23 00:17 | CT ---
EXAMINATION TYPE: CT facial bones w con DATE OF EXAM: 07/22/2022 COMPARISON: 07/10/2022 HISTORY: fall CT DLP: 597 mGycm Automated exposure control for dose reduction was used. CONTRAST: Performed with IV Contrast, patient injected with 70 mL of Isovue 300. Images obtained from the bottom of the mandible to the top of the frontal sinuses with the IV contras t. Submandibular salivary glands are symmetric. Mandibular ring is intact. Temporomandibular joints are intact. Zygomatic arches are intact. There is fracture of the anterior nasal bone. There is some soft tissue swelling involving the nose. Maxilla is intact. No evidence of orbital blowout fracture. No r etro-orbital mass. No pathologic enhancement. The parotid and submandibular salivary glands are symme tric. There is some mild mucosal thickening anterior ethmoid air cells. The left A1 segment of the an terior cerebral artery is small and the anterior cerebral arteries appear to fill mostly from the rig ht side through the anterior communicating artery. IMPRESSION: Nasal bone fracture. There is improvement in the nasal soft tissue deformity compared to the old exam . There is some blood clot or debris or sinusitis in the anterior ethmoid air cells which are improve d compared to old exam.
[2022-07-23] MEDS: CEFEPIME 2 GM in SODIUM CHLORIDE 0.9% 100 ML IVPB SCH ×2 (02:22→15:12)
[2022-07-23] MEDS: SODIUM CHLORIDE 0.9% 1,000 ML IV SCH ×2 (06:12→17:29)
[2022-07-23 06:20] LABS: Glucose,Whole Blood 122 mg/dL (70-110)
[2022-07-23] MEDS: INSULIN ASPART (NovoLOG) 100 UNIT/ML VIAL SQ SCH ×4 (06:26→21:24)
[2022-07-23] MEDS: PANTOPRAZOLE 40 MG TABLET PO SCH (06:42)
[2022-07-23 07:41] LABS: Anisocytosis Slight; HCT 26.9 % (39.0-53.0); HGB 9.1 gm/dL (13.0-17.5); MCH 33.5 pg (25.0-35.0); MCHC 33.9 g/dL (31.0-37.0); MCV 98.7 fL (80.0-100.0); Macrocytosis Slight; Mean Platelet Volume 8.3; Platelet Count 200 k/uL (150-450); Poikilocytosis Moderate; RBC 2.72 m/uL (4.30-5.90); RDW 19.7 % (11.5-15.5); WBC 4.4 k/uL (3.8-10.6)
[2022-07-23] MEDS: ACETAMINOPHEN TAB 325 MG TAB PO PRN (07:52)
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
[2022-07-23] MEDS: TAMSULOSIN 0.4 MG CAP.ER.24H PO SCH ×2 (10:10→10:21)
[2022-07-23] MEDS: CALCIUM CARBONATE 500 MG CHEWABLE PO SCH (10:10)
[2022-07-23] MEDS: DAPAGLIFLOZIN PROPANEDIOL 10 MG TABLET PO SCH (10:10)
[2022-07-23] MEDS: APIXABAN 5 MG TAB PO SCH ×2 (10:11→20:24)
[2022-07-23] MEDS: SENNOSIDES 8.6 MG TAB PO SCH ×2 (10:11→20:25)
[2022-07-23] MEDS: NYSTATIN 100,000 UNIT/ML SUSP 500,000 UNIT/5 ML CUP PO SCH ×4 (10:11→22:34)
[2022-07-23] MEDS: GABAPENTIN 300 MG CAP PO SCH ×3 (10:11→21:29)
[2022-07-23] MEDS: atenoloL 25 MG TAB PO SCH ×2 (10:11→20:25)
[2022-07-23] MEDS: ATORVASTATIN 80 MG TAB PO SCH (10:11)
[2022-07-23] MEDS: CHOLECALCIFEROL 25 MCG (1000 IU) TABLET PO SCH (10:11)
[2022-07-23] MEDS: FUROSEMIDE 40 MG TAB PO SCH (10:13)
[2022-07-23] MEDS: Semaglutide [Ozempic] 1 MG/0.75 ML Each SQ SCH ×2 (10:22→13:27)
--- NOTE | 2022-07-23 10:37 | XR ---
EXAMINATION TYPE: XR chest 1V portable DATE OF EXAM: 07/23/2022 HISTORY: Shortness of breath. COMPARISON: 07/19/2022 TECHNIQUE: Single view of the chest is submitted. FINDINGS: Demonstrated are scattered senescent parenchymal change. There are vague perihilar and basilar infiltrates slightly improved from prior study. Correlate clini jesus and progress studies are recommended. The heart is stable. Hilar and mediastinal structures are within normal limits. Degenerative changes are seen of the dorsal spine. IMPRESSION: 1. There are vague perihilar and basilar infiltrates slightly improved from prior study. Correlate c linically and progress studies are recommended.
[2022-07-23 10:39] LABS: African American GFR (CKD) 59 (>60 ml/min/1.73 sqM); Anion Gap 2 mmol/L; Blood Urea Nitrogen 12 mg/dL (9-20); Calcium 7.3 mg/dL (8.4-10.2); Carbon Dioxide 28 mmol/L (22-30); Chloride 103 mmol/L (98-107); Glucose 149 mg/dL (74-99); Non-African American GFR(CKD) 51 (>60 ml/min/1.73 sqM); Potassium 2.9 mmol/L (3.5-5.1); Sodium 133 mmol/L (137-145)
[2022-07-23 10:45] LABS: Appearance,Urine Clear (Clear); Bilirubin,Urine Negative (Negative); Blood,Urine Negative (Negative); Color,Urine Yellow; Glucose,Urine (UA) 4+ (Negative); Ketones,Urine Trace (Negative); Leukocyte Esterase,Urine Negative (Negative); Mucus,Urine Rare /hpf; Nitrite,Urine Negative (Negative); Protein,Urine 1+ (Negative); Specific Gravity,Urine 1.025 (1.001-1.035); Squamous Epithelial Cell,Urine <1 /hpf (0-4); Urobilinogen,Urine <2.0 mg/dL (<2.0); WBC,Urine <1 /hpf (0-5)
[2022-07-23 11:30] LABS: Glucose,Whole Blood 175 mg/dL (70-110)
[2022-07-23 12:17] LABS: Band Neutrophils % 2 %; Eosinophils # (M) 0.18 k/uL (0-0.7); Lymphocytes # (M) 0.53 k/uL (1.0-4.8); Monocytes # (M) 0.35 k/uL (0-1.0); Neutrophils % (M) 74 %; Nucleated Red Blood Cells 0 /100 WBC (0-0); Total Cells Counted 100
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
[2022-07-23] MEDS: VANCOMYCIN 1,500 MG in SODIUM CHLORIDE 0.9% 500 ML 500 ML IVPB SCH ×2 (12:24→15:12)
[2022-07-23 12:50] LABS: INR 1.1 (<1.2); Prothrombin Time 11.5 sec (9.0-12.0)
[2022-07-23] MEDS: FOLIC ACID 1 MG TAB PO SCH (13:26)
[2022-07-23] MEDS ORDERED: LIDOCAINE 1% INJ 10MG/ML (5 ML VIAL-PF) SQ ONE ×2 (14:05→14:10)
--- NOTE | 2022-07-23 15:02 | IR ---
PICC LINE PLACEMENT: HISTORY: Infection requiring long-term antibiotic therapy PROCEDURE: Ultrasound and fluoroscopic guidance of PICC line placement. PEN RIDER: Dr. Tejada COMPLICATIONS: None ANESTHESIA: 1% Lidocaine locally. FINDINGS/TECHNIQUE: The procedure was explained to the patient. The risks, complications, benefits and alternatives were discussed and any questions were answered. Informed consent was obtained. The patient was placed supine on the fluoroscopic table and prepped and draped in the usual sterile formerly [facility] ion. Utilizing a 21 gauge needle and sonographic and fluoroscopic guidance, access in a left brachi al vein was achieved and there is placement of a 0.018 guidewire. The vein is patent. A 4-F. sheath was placed over the guidewire. The guidewire and dilator were removed and a 4-F. PICC line was plac ed through the sheath with the tip at the level of the SVC/RA junction. The sheath was removed, the catheter was flushed and sutured into position. The patient was stable throughout the procedure and remained stable upon discharge from the Department of Radiology. The vein puncture was patent under ultrasound. A kinsey scale image was obtained to document patency of the vein punctured. All elements of the maximal barrier technique were utilized. FLUOROSCOPY TIME: 0.1 minutes IMPRESSION: Successful PICC line placement under ultrasound and fluoroscopic guidance.
[2022-07-23 16:42] LABS: Glucose,Whole Blood 115 mg/dL (70-110)
[2022-07-23] MEDS: POTASSIUM CHLORIDE ER 20 MEQ TAB.ER PO SCH ×3 (20:25→22:34)
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
[2022-07-23 21:05] LABS: Glucose,Whole Blood 139 mg/dL (70-110)
[2022-07-24] MEDS: CEFEPIME 2 GM in SODIUM CHLORIDE 0.9% 100 ML IVPB SCH ×2 (02:22→13:32)
[2022-07-24] MEDS: SODIUM CHLORIDE 0.9% 1,000 ML IV SCH ×2 (03:28→13:35)
[2022-07-24 04:49] LABS: ALT 23 U/L (4-49); AST 26 U/L (17-59); African American GFR (CKD) 52 (>60 ml/min/1.73 sqM); Albumin 2.6 g/dL (3.5-5.0); Albumin/Globulin Ratio 0.9; Alkaline Phosphatase 52 U/L (38-126); Anion Gap 5 mmol/L; Blood Urea Nitrogen 12 mg/dL (9-20); Calcium 7.7 mg/dL (8.4-10.2); Carbon Dioxide 29 mmol/L (22-30); Chloride 102 mmol/L (98-107); Globulin 2.9 g/dL; Glucose 93 mg/dL (74-99); Non-African American GFR(CKD) 45 (>60 ml/min/1.73 sqM); Potassium 3.5 mmol/L (3.5-5.1); Sodium 136 mmol/L (137-145); Total Bilirubin 0.8 mg/dL (0.2-1.3); Total Protein 5.5 g/dL (6.3-8.2)
[2022-07-24 06:12] LABS: Glucose,Whole Blood 97 mg/dL (70-110)
[2022-07-24] MEDS: INSULIN ASPART (NovoLOG) 100 UNIT/ML VIAL SQ SCH ×4 (06:23→21:41)
[2022-07-24] MEDS: VANCOMYCIN 1,500 MG in SODIUM CHLORIDE 0.9% 500 ML 500 ML IVPB SCH ×2 (06:24→21:41)
[2022-07-24] MEDS: PANTOPRAZOLE 40 MG TABLET PO SCH (06:35)
[2022-07-24 06:37] LABS: C Reactive Protein 13.9 mg/dL (<1.0)
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
[2022-07-24] MEDS: atenoloL 25 MG TAB PO SCH ×2 (10:05→21:41)
[2022-07-24] MEDS: FUROSEMIDE 40 MG TAB PO SCH (10:05)
[2022-07-24] MEDS: CALCIUM CARBONATE 500 MG CHEWABLE PO SCH (10:05)
[2022-07-24] MEDS: CHOLECALCIFEROL 25 MCG (1000 IU) TABLET PO SCH (10:05)
[2022-07-24] MEDS: SENNOSIDES 8.6 MG TAB PO SCH ×2 (10:05→21:41)
[2022-07-24] MEDS: DAPAGLIFLOZIN PROPANEDIOL 10 MG TABLET PO SCH (10:05)
[2022-07-24] MEDS: APIXABAN 5 MG TAB PO SCH ×2 (10:05→21:41)
[2022-07-24] MEDS: ATORVASTATIN 80 MG TAB PO SCH (10:05)
[2022-07-24] MEDS: GABAPENTIN 300 MG CAP PO SCH ×3 (10:05→21:41)
[2022-07-24] MEDS: NYSTATIN 100,000 UNIT/ML SUSP 500,000 UNIT/5 ML CUP PO SCH ×4 (10:06→21:41)
[2022-07-24 10:48] LABS: HCT 27.1 % (39.6-50.0); HGB 8.7 g/dL (13.0-17.0); MCH 33.1 pg (27.0-32.0); MCHC 32.1 g/dL (32.0-37.0); Mean Platelet Volume 9.9 fL (9.5-12.2); NRBC Per 100 WBC 0 /100 WBCS (0.0-0.0); Platelet Count 197 X 10*3/uL (140-440); RBC 2.63 X 10*6/uL (4.40-5.60); RDW 19.9 % (11.5-14.5); WBC 4.65 X 10*3/uL (4.50-10.00)
[2022-07-24 11:05] LABS: Glucose,Whole Blood 126 mg/dL (70-110)
[2022-07-24 12:30] LABS: Basophils # (A) 0.02 X 10*3/uL (0.00-0.10); Basophils % (A) 0.4 %; Eosinophils # (A) 0.11 X 10*3/uL (0.04-0.35); Eosinophils % (A) 2.4 %; Immature Grans, Automated 0.4 %; Lymphocytes # (A) 1.32 X 10*3/uL (0.90-5.00); Lymphocytes % (A) 28.4 %; Monocytes # (A) 0.67 X 10*3/uL (0.20-1.00); Monocytes % (A) 14.4 %; Neutrophils # (A) 2.51 X 10*3/uL (1.80-7.70)
[2022-07-24 12:31] LABS: RBC Morphology NORMAL
[2022-07-24] MEDS: FOLIC ACID 1 MG TAB PO SCH (13:32)
[2022-07-24] MEDS: POTASSIUM CHLORIDE ER 20 MEQ TAB.ER PO SCH ×2 (13:32→14:03)
[2022-07-24 13:50] VITALS: BMI 26.4
[2022-07-24 16:40] LABS: Glucose,Whole Blood 127 mg/dL (70-110)
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
[2022-07-24 21:04] LABS: Glucose,Whole Blood 223 mg/dL (70-110)
[2022-07-25] MEDS: CEFEPIME 2 GM in SODIUM CHLORIDE 0.9% 100 ML IVPB SCH ×2 (01:56→13:27)
[2022-07-25 06:33] LABS: Glucose,Whole Blood 127 mg/dL (70-110)
[2022-07-25] MEDS: INSULIN ASPART (NovoLOG) 100 UNIT/ML VIAL SQ SCH ×4 (06:37→21:44)
[2022-07-25] MEDS: PANTOPRAZOLE 40 MG TABLET PO SCH (06:38)
[2022-07-25] MEDS: APIXABAN 5 MG TAB PO SCH ×2 (10:07→22:10)
[2022-07-25] MEDS: FUROSEMIDE 40 MG TAB PO SCH (10:07)
[2022-07-25] MEDS: TAMSULOSIN 0.4 MG CAP.ER.24H PO SCH (10:07)
[2022-07-25] MEDS: SENNOSIDES 8.6 MG TAB PO SCH ×2 (10:08→22:09)
[2022-07-25] MEDS: GABAPENTIN 300 MG CAP PO SCH ×3 (10:08→22:09)
[2022-07-25] MEDS: FOLIC ACID 1 MG TAB PO SCH (10:08)
[2022-07-25] MEDS: atenoloL 25 MG TAB PO SCH ×2 (10:08→22:09)
[2022-07-25] MEDS: ATORVASTATIN 80 MG TAB PO SCH (10:08)
[2022-07-25] MEDS: CHOLECALCIFEROL 25 MCG (1000 IU) TABLET PO SCH (10:08)
[2022-07-25] MEDS: CALCIUM CARBONATE 500 MG CHEWABLE PO SCH (10:08)
[2022-07-25] MEDS: DAPAGLIFLOZIN PROPANEDIOL 10 MG TABLET PO SCH (10:09)
[2022-07-25] MEDS: NYSTATIN 100,000 UNIT/ML SUSP 500,000 UNIT/5 ML CUP PO SCH ×4 (10:09→22:10)
[2022-07-25] MEDS: SODIUM CHLORIDE 0.9% 1,000 ML IV SCH ×3 (10:10→17:05)
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
[2022-07-25 11:41] LABS: Glucose,Whole Blood 137 mg/dL (70-110)
[2022-07-25] MEDS ORDERED: VANCOMYCIN TROUGH DUE 1 EACH MISC MISCELLANE ONE (13:00)
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
[2022-07-25] MEDS: VANCOMYCIN 1,500 MG in SODIUM CHLORIDE 0.9% 500 ML 500 ML IVPB SCH (13:26)
[2022-07-25 13:37] LABS: African American GFR (CKD) 71 (>60 ml/min/1.73 sqM); Anion Gap 4 mmol/L; Blood Urea Nitrogen 13 mg/dL (9-20); Carbon Dioxide 29 mmol/L (22-30); Chloride 105 mmol/L (98-107); Glucose 110 mg/dL (74-99); Non-African American GFR(CKD) 62 (>60 ml/min/1.73 sqM); Potassium 3.8 mmol/L (3.5-5.1); Sodium 138 mmol/L (137-145)
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
[2022-07-25 16:53] LABS: Glucose,Whole Blood 150 mg/dL (70-110)
[2022-07-26] MEDS: SODIUM CHLORIDE 0.9% 1,000 ML IV SCH ×2 (01:38→14:24)
[2022-07-26] MEDS: CEFEPIME 2 GM in SODIUM CHLORIDE 0.9% 100 ML IVPB SCH ×2 (01:38→14:20)
[2022-07-26] MEDS ORDERED: VANCOMYCIN 1,250 MG in SODIUM CHLORIDE 0.9% 250 ML IVPB SCH (06:00)
[2022-07-26 06:05] LABS: Glucose,Whole Blood 92 mg/dL (70-110)
[2022-07-26] MEDS: INSULIN ASPART (NovoLOG) 100 UNIT/ML VIAL SQ SCH ×4 (07:29→21:17)
[2022-07-26] MEDS: CALCIUM CARBONATE 500 MG CHEWABLE PO SCH (08:27)
[2022-07-26] MEDS: DAPAGLIFLOZIN PROPANEDIOL 10 MG TABLET PO SCH (08:27)
[2022-07-26] MEDS: ATORVASTATIN 80 MG TAB PO SCH (08:27)
[2022-07-26] MEDS: TAMSULOSIN 0.4 MG CAP.ER.24H PO SCH (08:27)
[2022-07-26] MEDS: SENNOSIDES 8.6 MG TAB PO SCH ×2 (08:27→21:17)
[2022-07-26] MEDS: NYSTATIN 100,000 UNIT/ML SUSP 500,000 UNIT/5 ML CUP PO SCH ×4 (08:27→21:17)
[2022-07-26] MEDS: APIXABAN 5 MG TAB PO SCH ×2 (08:27→21:16)
[2022-07-26] MEDS: GABAPENTIN 300 MG CAP PO SCH ×3 (08:27→21:16)
[2022-07-26] MEDS: atenoloL 25 MG TAB PO SCH ×2 (08:27→21:17)
[2022-07-26] MEDS: FUROSEMIDE 40 MG TAB PO SCH (08:28)
[2022-07-26] MEDS: CHOLECALCIFEROL 25 MCG (1000 IU) TABLET PO SCH (08:28)
[2022-07-26] MEDS: PANTOPRAZOLE 40 MG TABLET PO SCH (08:28)
[2022-07-26 11:26] LABS: Glucose,Whole Blood 154 mg/dL (70-110)
[2022-07-26] MEDS: FOLIC ACID 1 MG TAB PO SCH (11:56)
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
[2022-07-26] MEDS ORDERED: LEVOFLOXACIN 500 MG TAB PO SCH (16:00)
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
[2022-07-26 16:51] LABS: Glucose,Whole Blood 124 mg/dL (70-110)
[2022-07-26 20:50] LABS: Glucose,Whole Blood 147 mg/dL (70-110)
[2022-07-26] MEDS: DOXYCYCLINE 100 MG CAP PO SCH (22:38)
[2022-07-27] MEDS: SODIUM CHLORIDE 0.9% 1,000 ML IV SCH ×3 (01:34→22:24)
[2022-07-27 06:41] LABS: Glucose,Whole Blood 86 mg/dL (70-110)
[2022-07-27] MEDS: INSULIN ASPART (NovoLOG) 100 UNIT/ML VIAL SQ SCH ×4 (06:41→22:24)
[2022-07-27] MEDS: SENNOSIDES 8.6 MG TAB PO SCH ×2 (10:10→22:24)
[2022-07-27] MEDS: CALCIUM CARBONATE 500 MG CHEWABLE PO SCH (10:10)
[2022-07-27] MEDS: ATORVASTATIN 80 MG TAB PO SCH (10:10)
[2022-07-27] MEDS: GABAPENTIN 300 MG CAP PO SCH ×3 (10:10→22:24)
[2022-07-27] MEDS: APIXABAN 5 MG TAB PO SCH ×2 (10:10→22:24)
[2022-07-27] MEDS: atenoloL 25 MG TAB PO SCH ×2 (10:10→22:24)
[2022-07-27] MEDS: DAPAGLIFLOZIN PROPANEDIOL 10 MG TABLET PO SCH (10:11)
[2022-07-27] MEDS: CHOLECALCIFEROL 25 MCG (1000 IU) TABLET PO SCH (10:11)
[2022-07-27] MEDS: PANTOPRAZOLE 40 MG TABLET PO SCH (10:11)
[2022-07-27] MEDS: FUROSEMIDE 40 MG TAB PO SCH (10:11)
[2022-07-27] MEDS: TAMSULOSIN 0.4 MG CAP.ER.24H PO SCH (10:11)
[2022-07-27] MEDS: DOXYCYCLINE 100 MG CAP PO SCH ×2 (10:11→22:24)
[2022-07-27] MEDS: NYSTATIN 100,000 UNIT/ML SUSP 500,000 UNIT/5 ML CUP PO SCH ×4 (10:12→22:23)
[2022-07-27 11:22] LABS: Glucose,Whole Blood 125 mg/dL (70-110)
[2022-07-27 11:26] LABS: HCT 26.2 % (39.6-50.0); HGB 8.2 g/dL (13.0-17.0); MCH 32.4 pg (27.0-32.0); MCHC 31.3 g/dL (32.0-37.0); MCV 103.6 fL (80.0-97.0); Mean Platelet Volume 10.3 fL (9.5-12.2); NRBC Per 100 WBC 0 /100 WBCS (0.0-0.0); Platelet Count 155 X 10*3/uL (140-440); RBC 2.53 X 10*6/uL (4.40-5.60); RDW 19.9 % (11.5-14.5); WBC 3.73 X 10*3/uL (4.50-10.00)
[2022-07-27 11:35] LABS: African American GFR (CKD) 60.6 (60.0-200.0); Albumin 2.5 g/dL (3.8-4.9); Albumin/Globulin Ratio 0.89 (1.60-3.17); Anion Gap 9.3 mmol/L (10.00-18.00); C Reactive Protein 4.9 mg/dL (0.00-0.80); Calcium 7.4 mg/dL (8.7-10.3); Carbon Dioxide 23.7 mmol/L (20.0-27.5); Globulin 2.8 g/dL (1.6-3.3); Non-African American GFR(CKD) 52.3 (60.0-200.0); Potassium 3.1 mmol/L (3.5-5.5); Total Bilirubin 0.5 mg/dL (0.30-1.20); Total Protein 5.3 g/dL (6.2-8.2)
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
[2022-07-27 12:52] LABS: Basophils # (A) 0.02 X 10*3/uL (0.00-0.10); Basophils % (A) 0.5 %; Eosinophils # (A) 0.08 X 10*3/uL (0.04-0.35); Eosinophils % (A) 2.1 %; Immature Grans, Automated 0.3 %; Lymphocytes # (A) 1.42 X 10*3/uL (0.90-5.00); Lymphocytes % (A) 38.1 %; Monocytes # (A) 0.47 X 10*3/uL (0.20-1.00); Monocytes % (A) 12.6 %; Neutrophils # (A) 1.73 X 10*3/uL (1.80-7.70); Neutrophils % (A) 46.4 %; RBC Morphology NORMAL
[2022-07-27] MEDS: FOLIC ACID 1 MG TAB PO SCH (14:11)
[2022-07-27 16:46] LABS: Glucose,Whole Blood 118 mg/dL (70-110)
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
[2022-07-27 21:15] LABS: Glucose,Whole Blood 107 mg/dL (70-110)
[2022-07-27] MEDS: LEVOFLOXACIN 250 MG TAB PO SCH (22:24)
[2022-07-28 06:24] LABS: Glucose,Whole Blood 79 mg/dL (70-110)
[2022-07-28] MEDS: INSULIN ASPART (NovoLOG) 100 UNIT/ML VIAL SQ SCH ×5 (06:30→20:51)
[2022-07-28] MEDS: SODIUM CHLORIDE 0.9% 1,000 ML IV SCH ×3 (06:30→22:10)
[2022-07-28] MEDS: NYSTATIN 100,000 UNIT/ML SUSP 500,000 UNIT/5 ML CUP PO SCH (10:09)
[2022-07-28] MEDS: SENNOSIDES 8.6 MG TAB PO SCH ×2 (10:19→21:28)
[2022-07-28] MEDS: ATORVASTATIN 80 MG TAB PO SCH (10:19)
[2022-07-28] MEDS: FUROSEMIDE 40 MG TAB PO SCH (10:19)
[2022-07-28] MEDS: DOXYCYCLINE 100 MG CAP PO SCH ×2 (10:19→22:05)
[2022-07-28] MEDS: atenoloL 25 MG TAB PO SCH ×2 (10:19→21:28)
[2022-07-28] MEDS: CHOLECALCIFEROL 25 MCG (1000 IU) TABLET PO SCH (10:19)
[2022-07-28] MEDS: GABAPENTIN 300 MG CAP PO SCH ×3 (10:19→21:28)
[2022-07-28] MEDS: FOLIC ACID 1 MG TAB PO SCH (10:19)
[2022-07-28] MEDS: DAPAGLIFLOZIN PROPANEDIOL 10 MG TABLET PO SCH (10:20)
[2022-07-28] MEDS: PANTOPRAZOLE 40 MG TABLET PO SCH (10:20)
[2022-07-28] MEDS: CALCIUM CARBONATE 500 MG CHEWABLE PO SCH (10:20)
[2022-07-28] MEDS: APIXABAN 5 MG TAB PO SCH ×2 (10:20→21:28)
[2022-07-28] MEDS: TAMSULOSIN 0.4 MG CAP.ER.24H PO SCH (10:20)
[2022-07-28 10:23] LABS: HCT 27.5 % (39.6-50.0); HGB 8.6 g/dL (13.0-17.0); MCH 33.3 pg (27.0-32.0); MCHC 31.3 g/dL (32.0-37.0); MCV 106.6 fL (80.0-97.0); Mean Platelet Volume 10.2 fL (9.5-12.2); NRBC Per 100 WBC 0 /100 WBCS (0.0-0.0); Platelet Count 133 X 10*3/uL (140-440); RBC 2.58 X 10*6/uL (4.40-5.60); RDW 19.6 % (11.5-14.5); WBC 3.78 X 10*3/uL (4.50-10.00)
[2022-07-28 10:57] LABS: Glucose,Whole Blood 110 mg/dL (70-110)
[2022-07-28 11:52] LABS: African American GFR (CKD) 58.9 (60.0-200.0); Anion Gap 12.7 mmol/L (10.00-18.00); BUN/Creat Ratio 8.87 Ratio (12.00-20.00); Blood Urea Nitrogen 11.8 mg/dL (9.0-27.0); Calcium 7.8 mg/dL (8.7-10.3); Carbon Dioxide 20.3 mmol/L (20.0-27.5); Non-African American GFR(CKD) 50.8 (60.0-200.0); Potassium 3.1 mmol/L (3.5-5.5)
[2022-07-28 13:02] LABS: Basophils # (A) 0.02 X 10*3/uL (0.00-0.10); Basophils % (A) 0.5 %; Eosinophils # (A) 0.07 X 10*3/uL (0.04-0.35); Eosinophils % (A) 1.9 %; Immature Grans, Automated 0.5 %; Lymphocytes # (A) 1.57 X 10*3/uL (0.90-5.00); Lymphocytes % (A) 41.5 %; Monocytes # (A) 0.41 X 10*3/uL (0.20-1.00); Monocytes % (A) 10.8 %; Neutrophils # (A) 1.69 X 10*3/uL (1.80-7.70); Neutrophils % (A) 44.8 %; RBC Morphology NORMAL
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
[2022-07-28] MEDS: LEVOFLOXACIN 250 MG TAB PO SCH (15:49)
[2022-07-28 16:33] LABS: Glucose,Whole Blood 179 mg/dL (70-110)
[2022-07-28 20:49] LABS: Glucose,Whole Blood 88 mg/dL (70-110)
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
[2022-07-29 06:18] LABS: Glucose,Whole Blood 91 mg/dL (70-110)
[2022-07-29] MEDS: INSULIN ASPART (NovoLOG) 100 UNIT/ML VIAL SQ SCH ×4 (06:31→21:30)
[2022-07-29] MEDS: GABAPENTIN 300 MG CAP PO SCH ×3 (08:03→21:35)
[2022-07-29] MEDS: SENNOSIDES 8.6 MG TAB PO SCH ×2 (08:03→21:36)
[2022-07-29] MEDS: atenoloL 25 MG TAB PO SCH ×2 (08:03→21:36)
[2022-07-29] MEDS: APIXABAN 5 MG TAB PO SCH ×2 (08:03→21:36)
[2022-07-29] MEDS: CHOLECALCIFEROL 25 MCG (1000 IU) TABLET PO SCH (08:03)
[2022-07-29] MEDS: ATORVASTATIN 80 MG TAB PO SCH (08:04)
[2022-07-29] MEDS: CALCIUM CARBONATE 500 MG CHEWABLE PO SCH (08:04)
[2022-07-29] MEDS: FUROSEMIDE 40 MG TAB PO SCH (08:04)
[2022-07-29] MEDS: PANTOPRAZOLE 40 MG TABLET PO SCH (08:04)
[2022-07-29] MEDS: DOXYCYCLINE 100 MG CAP PO SCH ×2 (08:04→21:35)
[2022-07-29] MEDS: DAPAGLIFLOZIN PROPANEDIOL 10 MG TABLET PO SCH (08:04)
[2022-07-29] MEDS: TAMSULOSIN 0.4 MG CAP.ER.24H PO SCH (08:04)
[2022-07-29 10:58] LABS: Glucose,Whole Blood 129 mg/dL (70-110)
[2022-07-29 11:11] LABS: African American GFR (CKD) 55.4 (60.0-200.0); Albumin 2.6 g/dL (3.8-4.9); Albumin/Globulin Ratio 0.9 (1.60-3.17); Anion Gap 8.9 mmol/L (10.00-18.00); BUN/Creat Ratio 8.36 Ratio (12.00-20.00); Blood Urea Nitrogen 11.7 mg/dL (9.0-27.0); Calcium 7.8 mg/dL (8.7-10.3); Carbon Dioxide 25.1 mmol/L (20.0-27.5); Globulin 2.9 g/dL (1.6-3.3); Non-African American GFR(CKD) 47.8 (60.0-200.0); Potassium 2.8 mmol/L (3.5-5.5); Total Bilirubin 0.5 mg/dL (0.30-1.20); Total Protein 5.5 g/dL (6.2-8.2)
[2022-07-29 11:18] LABS: HCT 26.7 % (39.6-50.0); HGB 8.5 g/dL (13.0-17.0); MCH 32.9 pg (27.0-32.0); MCHC 31.8 g/dL (32.0-37.0); MCV 103.5 fL (80.0-97.0); Mean Platelet Volume 10.5 fL (9.5-12.2); NRBC Per 100 WBC 0 /100 WBCS (0.0-0.0); Platelet Count 125 X 10*3/uL (140-440); RBC 2.58 X 10*6/uL (4.40-5.60); RDW 19.5 % (11.5-14.5); WBC 3.28 X 10*3/uL (4.50-10.00)
[2022-07-29 11:28] LABS: Basophils # (A) 0.01 X 10*3/uL (0.00-0.10); Basophils % (A) 0.3 %; Eosinophils # (A) 0.08 X 10*3/uL (0.04-0.35); Eosinophils % (A) 2.4 %; Immature Grans, Automated 0.9 %; Lymphocytes # (A) 1.59 X 10*3/uL (0.90-5.00); Lymphocytes % (A) 48.5 %; Monocytes # (A) 0.42 X 10*3/uL (0.20-1.00); Monocytes % (A) 12.8 %; Neutrophils # (A) 1.15 X 10*3/uL (1.80-7.70); Neutrophils % (A) 35.1 %; RBC Morphology NORMAL
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
[2022-07-29] MEDS: SODIUM CHLORIDE 0.9% 1,000 ML IV SCH (12:26)
[2022-07-29] MEDS: FOLIC ACID 1 MG TAB PO SCH (12:27)
[2022-07-29] MEDS ORDERED: ALBUTEROL HFA INHALER INHALATION PRN (12:37)
[2022-07-29] MEDS ORDERED: BENZOCAINE/MENTHOL LOZENG 1 EACH LOZENGE MUCOUS MEM PRN (12:37)
[2022-07-29] MEDS ORDERED: guaiFENesin SYRUP 100MG/5ML 200 MG/10 ML CUP PO PRN (12:38)
[2022-07-29] MEDS ORDERED: POTASSIUM CHLORIDE ER 20 MEQ TAB.ER PO SCH (13:00)
[2022-07-29] MEDS: POTASSIUM CHLORIDE ER 20 MEQ TAB.ER PO SCH ×2 (13:07→15:05)
[2022-07-29] MEDS: LEVOFLOXACIN 250 MG TAB PO SCH (15:04)
[2022-07-29] MEDS ORDERED: POTASSIUM CHLORIDE ER 20 MEQ TAB.ER PO ONE (16:00)
[2022-07-29 16:04] LABS: Glucose,Whole Blood 195 mg/dL (70-110)
[2022-07-29 20:46] LABS: Glucose,Whole Blood 148 mg/dL (70-110)
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
[2022-07-30 06:18] LABS: Glucose,Whole Blood 114 mg/dL (70-110)
[2022-07-30] MEDS: INSULIN ASPART (NovoLOG) 100 UNIT/ML VIAL SQ SCH ×2 (06:30→11:38)
[2022-07-30] MEDS: TAMSULOSIN 0.4 MG CAP.ER.24H PO SCH (07:28)
[2022-07-30] MEDS: CALCIUM CARBONATE 500 MG CHEWABLE PO SCH (07:28)
[2022-07-30] MEDS: ATORVASTATIN 80 MG TAB PO SCH (07:28)
[2022-07-30] MEDS: FUROSEMIDE 40 MG TAB PO SCH (07:28)
[2022-07-30] MEDS: PANTOPRAZOLE 40 MG TABLET PO SCH (07:28)
[2022-07-30] MEDS: APIXABAN 5 MG TAB PO SCH (07:28)
[2022-07-30] MEDS: atenoloL 25 MG TAB PO SCH (07:28)
[2022-07-30] MEDS: GABAPENTIN 300 MG CAP PO SCH (07:28)
[2022-07-30] MEDS: CHOLECALCIFEROL 25 MCG (1000 IU) TABLET PO SCH (07:28)
[2022-07-30] MEDS: DAPAGLIFLOZIN PROPANEDIOL 10 MG TABLET PO SCH (07:29)
[2022-07-30] MEDS: DOXYCYCLINE 100 MG CAP PO SCH (07:29)
[2022-07-30] MEDS: SENNOSIDES 8.6 MG TAB PO SCH (07:34)
[2022-07-30 07:56] VITALS: TEMP 97.6
[2022-07-30] MEDS: Semaglutide [Ozempic] 1 MG/0.75 ML Each SQ SCH (10:23)
[2022-07-30 10:51] LABS: Anisocytosis Slight; HCT 26.7 % (39.0-53.0); HGB 8.9 gm/dL (13.0-17.5); MCH 32.6 pg (25.0-35.0); MCHC 33.3 g/dL (31.0-37.0); Macrocytosis Slight; Mean Platelet Volume 8.5; Platelet Count 107 k/uL (150-450); Poikilocytosis Moderate; RBC 2.73 m/uL (4.30-5.90); RDW 19.2 % (11.5-15.5); WBC 3.4 k/uL (3.8-10.6)
[2022-07-30 11:18] LABS: African American GFR (CKD) 57 (>60 ml/min/1.73 sqM); Anion Gap 2 mmol/L; Blood Urea Nitrogen 12 mg/dL (9-20); Calcium 7.7 mg/dL (8.4-10.2); Carbon Dioxide 27 mmol/L (22-30); Chloride 109 mmol/L (98-107); Glucose 134 mg/dL (74-99); Non-African American GFR(CKD) 50 (>60 ml/min/1.73 sqM); Potassium 4.1 mmol/L (3.5-5.1); Sodium 138 mmol/L (137-145)
[2022-07-30 11:31] LABS: Glucose,Whole Blood 134 mg/dL (70-110)
[2022-07-30] MEDS: FOLIC ACID 1 MG TAB PO SCH (11:42)
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
[2022-07-30 15:16] LABS: Eosinophils # (M) 0.03 k/uL (0-0.7); Lymphocytes # (M) 1.12 k/uL (1.0-4.8); Monocytes # (M) 0.27 k/uL (0-1.0); Neutrophils # (M) 1.97 k/uL (1.3-7.7); Neutrophils % (M) 58 %; Nucleated Red Blood Cells 0 /100 WBC (0-0); Total Cells Counted 100
[2022-07-30 15:17] VITALS: BP 116/58; PULSE 86; RESP 15
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
== END 2022-07-30 14:17 | disposition home health service (06) | DRG 871 ==
LOC: EC 15:43 → 3SCARD 17:57 → 2SICU 07-13 11:02 → 4SSUR 07-17 17:52
PROVIDERS: ADMIT Hospitalist; ATTEND Hospitalist
PROC: 3E0234Z Introduction of Serum, Toxoid and Vaccine into Muscle, Percutaneous Approach (ICD-10-PCS; 2022-07-10)
PROC: 0HQ1XZZ Repair Face Skin, External Approach (ICD-10-PCS; 2022-07-10)
PROC: 4A133B1 Monitoring of Arterial Pressure, Peripheral, Percutaneous Approach (ICD-10-PCS; principal; 2022-07-13)
PROC: 5A1945Z Respiratory Ventilation, 24-96 Consecutive Hours (ICD-10-PCS; principal; 2022-07-13)
PROC: 02HV33Z Insertion of Infusion Device into Superior Vena Cava, Percutaneous Approach (ICD-10-PCS; principal; 2022-07-13)
PROC: 4A133J1 Monitoring of Arterial Pulse, Peripheral, Percutaneous Approach (ICD-10-PCS; principal; 2022-07-13)
PROC: 03HY32Z Insertion of Monitoring Device into Upper Artery, Percutaneous Approach (ICD-10-PCS; principal; 2022-07-13)
PROC: 0BH17EZ Insertion of Endotracheal Airway into Trachea, Via Natural or Artificial Opening (ICD-10-PCS; principal; 2022-07-13)
PROC: 3E033XZ Introduction of Vasopressor into Peripheral Vein, Percutaneous Approach (ICD-10-PCS; 2022-07-13)
PROC: 05HC33Z Insertion of Infusion Device into Left Basilic Vein, Percutaneous Approach (ICD-10-PCS; 2022-07-18)
PROC: 02HV33Z Insertion of Infusion Device into Superior Vena Cava, Percutaneous Approach (ICD-10-PCS; 2022-07-23)
DX: A41.9 Sepsis, unspecified organism (principal); G93.41 Metabolic encephalopathy; J96.01 Acute respiratory failure with hypoxia; J96.02 Acute respiratory failure with hypercapnia; R65.21 Severe sepsis with septic shock; I21.4 Non-ST elevation (NSTEMI) myocardial infarction; U07.1 COVID-19; J18.9 Pneumonia, unspecified organism; I50.33 Acute on chronic diastolic (congestive) heart failure; S02.2XXB Fracture of nasal bones, initial encounter for open fracture; J98.11 Atelectasis; N39.0 Urinary tract infection, site not specified; I45.2 Bifascicular block; J44.0 Chronic obstructive pulmonary disease with (acute) lower respiratory infection; J44.1 Chronic obstructive pulmonary disease with (acute) exacerbation; D69.6 Thrombocytopenia, unspecified; E11.649 Type 2 diabetes mellitus with hypoglycemia without coma; L89.152 Pressure ulcer of sacral region, stage 2; M05.10 Rheumatoid lung disease with rheumatoid arthritis of unspecified site; I11.0 Hypertensive heart disease with heart failure; E11.42 Type 2 diabetes mellitus with diabetic polyneuropathy; K74.60 Unspecified cirrhosis of liver; I71.9 Aortic aneurysm of unspecified site, without rupture; Z20.822 Contact with and (suspected) exposure to COVID-19; J34.2 Deviated nasal septum; R04.0 Epistaxis; R26.2 Difficulty in walking, not elsewhere classified; M54.50 Low back pain, unspecified; D75.89 Other specified diseases of blood and blood-forming organs; I08.3 Combined rheumatic disorders of mitral, aortic and tricuspid valves; I25.10 Atherosclerotic heart disease of native coronary artery without angina pectoris; N40.1 Benign prostatic hyperplasia with lower urinary tract symptoms; R33.8 Other retention of urine; F41.9 Anxiety disorder, unspecified; I65.23 Occlusion and stenosis of bilateral carotid arteries; E78.5 Hyperlipidemia, unspecified; K59.00 Constipation, unspecified; K20.90 Esophagitis, unspecified without bleeding; D35.00 Benign neoplasm of unspecified adrenal gland; M50.30 Other cervical disc degeneration, unspecified cervical region; M48.02 Spinal stenosis, cervical region; K57.30 Diverticulosis of large intestine without perforation or abscess without bleeding; M19.90 Unspecified osteoarthritis, unspecified site; Z79.84 Long term (current) use of oral hypoglycemic drugs; Z79.52 Long term (current) use of systemic steroids; Z79.85 Long-term (current) use of injectable non-insulin antidiabetic drugs; Z79.899 Other long term (current) drug therapy; Z87.891 Personal history of nicotine dependence; Z86.711 Personal history of pulmonary embolism; V47.5XXA Car driver injured in collision with fixed or stationary object in traffic accident, initial encounter; Y92.410 Unspecified street and highway as the place of occurrence of the external cause
CPT/HCPCS: 12013; 36410; 36415; 36573; 70450; 70486; 70487; 70553; 71045; 71046; 71260; 71275; 72125; 72170; 74177; 76705; 76937; 80048; 80053; 80202; 80306; 80320; 81001; 81003; 82565; 82607; 82746; 82805; 83605; 83735; 83880; 83921; 84145; 84484; 84520; 85025; 85610; 85730; 86140; 86769; 86850; 86900; 86901; 87040; 87070; 87205; 87635; 87636; 90715; 93005; 93270; 93306; 93880; 93970; 94002; 94003; 94640; 94760; 95816; 96361; 96365; 99291

== ENCOUNTER → 2022-09-13 | Outpatient (CLI) | payer MEDICARE ==
--- NOTE | 2022-09-16 06:27 | PE ---
EXAMINATION TYPE: PET CT fusion skull to thigh DATE OF EXAM: 09/13/2022 COMPARISON: Most recent CT July 18, 2022 HISTORY: Abnormal CT, solitary pulmonary nodule TECHNIQUE: Following the intravenous administration of 11.96 mCi of F-18 FDG, whole body images are performed from the skull base to the midthigh. Images are reviewed on the computer in the coronal, a xial, and sagittal planes. Reconstructed rotating images are created on independent workstation and reviewed on the computer. A localization and attenuation correction CT is performed in conjunction with the PET scan. Blood glucose level equals 1:30 SCAN: Initial Scan FINDINGS: SKULL BASE AND NECK: No areas of abnormal metabolic uptake. CHEST, MEDIASTINUM, AND HILAR REGION: Persistent curvilinear pleural thickening anterior left mid rafael g axial image 79 with minimal hypermetabolic uptake Max SUV 2.75 posterior lateral inferior aspect ax ial image 83. Trace left pleural effusion remains present. No additional areas of abnormal hypermetabolic uptake. ABDOMEN AND PELVIS: There is 1.9 x 1.0 cm left adrenal low-density nodule that is ametabolic presumed benign. Focal hypermetabolic uptake right colon corresponding to the area of mild wall thickening near image 153 shows no obvious mass on prior CT, max SUV is 5.02. Neoplasm not entirely excluded. Correlation w ith direct visualization or colonoscopy advised if has not been performed in last 3 years. OSSEOUS STRUCTURES: No definite areas of abnormal hypermetabolic uptake. OTHER CT: Moderate calcified plaque bilateral carotid bulb level. There is severe three-vessel gimenez ry artery calcification. Cardiomegaly is present. Enlarged pulmonary arteries are consistent with und erlying pulmonary artery hypertension. Known AAA up to 4.4 cm. IMPRESSION: Minimal hypermetabolic uptake in the anterior curvilinear pleural thickening. Neoplasm at this level cannot be excluded. Attention to right colon as detailed above. No additional areas of ab normal hypermetabolic uptake.
== END | disposition home or self-care (01) ==
LOC: RADPETMAIN 08:33
PROVIDERS: ATTEND Internal Medicine Critical Care Medicine
DX: R91.8 Other nonspecific abnormal finding of lung field (principal)
CPT/HCPCS: 78815; A9552

== ENCOUNTER → 2022-10-25 | Outpatient (CLI) | payer MEDICARE ==
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
== END | disposition home or self-care (01) ==
LOC: RADMRIMAIN 10:24
PROVIDERS: ATTEND Family Medicine
DX: G93.89 Other specified disorders of brain (principal); J32.9 Chronic sinusitis, unspecified; G81.90 Hemiplegia, unspecified affecting unspecified side
CPT/HCPCS: 70551

== ENCOUNTER → 2022-11-20 | Outpatient (CLI) | payer MEDICARE ==
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
== END | disposition home or self-care (01) ==
LOC: RADMRIMAIN 12:56
PROVIDERS: ATTEND Psychiatry & Neurology Neurology
DX: M47.812 Spondylosis without myelopathy or radiculopathy, cervical region (principal); M43.12 Spondylolisthesis, cervical region; G95.9 Disease of spinal cord, unspecified
CPT/HCPCS: 72141

== ENCOUNTER → 2022-12-03 | Outpatient (CLI) | payer MEDICARE ==
--- NOTE | 2022-12-03 11:35 | US ---
EXAMINATION TYPE: US liver DATE OF EXAM: 12/03/2022 COMPARISON: NONE CLINICAL INDICATION: Male, 77 years old with history of K74.60 CIRRHOSIS OF LIVER TECHNIQUE: Multiple sonographic images of the right upper quadrant are obtained. FINDINGS: EXAM MEASUREMENTS: Liver Length: 15 cm Gallbladder Wall: .3 cm CBD: .3 cm Right Kidney: 9.6 x 4.9 x 4.2 cm Aorta Mid 3.9 x 3.9 cm Pancreas: Obscured by bowel gas Liver: Slight coarsened echotexture may be undetectable basis. Gallbladder: Contracted. No shadowing stone seen. Evidence for sonographic Perez's sign: no CBD: wnl Right Kidney: Cortical thinning. No hydronephrosis. IMPRESSION: 1. Coarsened echotexture of the liver in keeping with patient's provided history of cirrhosis. No son ographic evidence for active lymphoma. 2. Contracted gallbladder. No gallstones or biliary ductal dilatation. 3. Atrophic right kidney suggesting chronic medical renal disease. 4. Mid abdominal AAA at 3.9 cm.
== END | disposition home or self-care (01) ==
LOC: RADUSWWP 07:24
PROVIDERS: ATTEND Internal Medicine Gastroenterology
DX: I71.40 Abdominal aortic aneurysm, without rupture, unspecified (principal); N26.1 Atrophy of kidney (terminal); K74.60 Unspecified cirrhosis of liver; K82.0 Obstruction of gallbladder
CPT/HCPCS: 76705

== ENCOUNTER → 2023-06-12 | Outpatient (CLI) | payer MEDICARE ==
--- NOTE | 2023-06-15 08:45 | PE ---
EXAMINATION TYPE: PET CT fusion skull to thigh DATE OF EXAM: 06/12/2023 CLINICAL INDICATION:Male, 78 years old with history of R91.1 ABNORMAL FINDINGS; TECHNIQUE: Following the intravenous administration of 8.79 mCi of F-18 FDG, whole body images are performed from the skull base to the midthigh. Images are reviewed on the computer in the coronal, a xial, and sagittal planes. Reconstructed rotating images are created on independent workstation and reviewed on the computer. A non-contrast CT is performed in conjunction with the PET scan. Glucose level 81 mg/dL CT DLP: 733 mGycm, Automated exposure control for dose reduction was used. COMPARISON: CT 04/15/2023, PET/CT 09/13/2022, FINDINGS: Mediastinal SUV mean is 1.9. Hepatic parenchyma SUV mean is 2.1. SKULL BASE AND NECK: No suspicious radiotracer activity. CHEST, MEDIASTINUM, AND HILAR REGION: Scattered areas of abnormal uptake, Examples include: * Linear area of FDG activity with cavitation today's exam in the left upper lobe measuring up to 6. 9 x 1.5 cm max SUV 9.2 inferiorly. * Scattered pulmonary nodules: * Left lung base 3.3 x 3.6 cm on the left near the diaphragm small focus of peripheral FDG activity max SUV 6.7. * Superior segment left lower lobe with cavitation axis VVI.IV measuring 1.2 cm. * Left upper lobe near the aortic arch axis SUV 6.3 measuring 9 mm. * Right upper lobe multiple cavitary lesions. Example includes right posterior apical apex max SUV 5 .2 measuring 11 mm. There is at least 6 lesions in the left upper lobe. In the right middle lobe and right lung bases multiple areas of consolidation and cavitary lesions. Along the pleura medially in t he right lung base max SUV 4.5 and more laterally in the right middle lobe max SUV 4.1. These 2 areas have a linear morphology. * Pulmonary nodules in the mediastinum which are nonenlarged by size criteria. Degenerative increase d metabolic activity including AP window lymph node measuring 7 mm in short axis max SUV 6.3. ABDOMEN AND PELVIS: No suspicious radiotracer activity. MUSCULOSKELETAL STRUCTURES: * No suspicious radiotracer activity. * Degeneration uptake bilaterally in the shoulders. * The initial tuberosity laterally is increased metabolic activity max SUV endplates throughout righ t and 5.4 on the left OTHER CT: Moderate calcified plaque bilateral carotid bulb level. There is severe three-vessel gimenez ry artery calcification. Cardiomegaly is present. Enlarged pulmonary arteries are consistent with und erlying pulmonary artery hypertension. Colonic diverticulosis. Atrophic appearing kidneys. Mild gynec omastia changes bilaterally. Small hydroceles. Increasing infrarenal abdominal aortic fusiform aortic aneurysm measuring up to 5.0 x 4.6 cm exam. IMPRESSION: 1. Scattered cavitary lesions throughout the lungs with increased metabolic activity. The area in th e lingula which is a flat like morphology of mild activity on prior now has cavitation with increased metabolic activity. Findings concerning for neoplastic process however infectious/inflammatory proce ss remain in the differential. Tissue sampling recommended. Consider workup for embolic phenomenon an other infectious/inflammatory processes. 2. The left gluteal fold/perineum there is mild uptake correlate for cellulitis. No organizing fluid collection.
== END | disposition home or self-care (01) ==
LOC: RADPETMAIN 14:26
PROVIDERS: ATTEND Internal Medicine Critical Care Medicine
DX: R91.1 Solitary pulmonary nodule (principal)
CPT/HCPCS: 78815; A9552

== ENCOUNTER → 2023-06-27 | Outpatient (CLI) | payer MEDICARE ==
[2023-06-27 14:58] LABS: African American GFR (CKD) 53 (>60 ml/min/1.73 sqM); Blood Urea Nitrogen 32 mg/dL (9-20); Non-African American GFR(CKD) 46 (>60 ml/min/1.73 sqM)
--- NOTE | 2023-06-27 16:46 | CT ---
EXAMINATION TYPE: CT abdomen pelvis w con DATE OF EXAM: 06/27/2023 COMPARISON: 07/18/2022 HISTORY: abdominal pain CT DLP: 1347.5 mGycm Automated exposure control for dose reduction was used. TECHNIQUE: Helical acquisition of images was performed from the lung bases through the pelvis. CONTRAST: Performed with Oral Contrast and with IV Contrast, patient injected with 80cc mL of Isovue 300. FINDINGS: There are multiple masses in the lung bases the largest of which is seen in the left lower lobe which measures 3.7 cm. Findings are suspicious for diffuse metastatic disease to the lungs. CT of the ches t be useful for further evaluation. Moderate cardiomegaly. The liver is enlarged and the contour is somewhat lobulated consistent with cirrhosis. Clinical corre lation recommended. The gallbladder is normal and there is no biliary ductal dilatation. There is no focal mass involving the pancreas, spleen or adrenal glands. The right kidney is moderately hypertrophic. There is no solid renal mass or hydronephrosis. There is an infrarenal abdominal aortic aneurysm measuring 4.7 cm AP and 4.4 cm transverse. There is no retroperitoneal adenopathy or hemorrhage. 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 The bowel loops are normal in caliber and there is no dilatation or obstruction. No inflammatory oates ges are identified in the bowel wall or mesentery and there is no free intraperitoneal air or fluid. There is marked diverticulosis of the descending and sigmoid colon without CT evidence of diverticuli tis. No pelvic mass, free fluid, abscess or adenopathy. No focal lytic osseous lesions are seen. IMPRESSION: 1. Multiple lung masses within the visualized lung bases are suspicious for malignancy, possible meta static disease. CT of the chest is recommended for further evaluation. 2. Hepatomegaly with lobulated contour suggestive of cirrhosis. 3. Abdominal aortic aneurysm as described above. 4. Moderate atrophy of the right kidney 5. Marked diverticulosis of the colon without CT evidence of diverticulitis. 6 moderate cardiomegaly.
== END | disposition home or self-care (01) ==
LOC: RADCTMAIN 14:18
PROVIDERS: ATTEND Internal Medicine Critical Care Medicine
DX: K57.30 Diverticulosis of large intestine without perforation or abscess without bleeding (principal); I51.7 Cardiomegaly; I71.40 Abdominal aortic aneurysm, without rupture, unspecified; N26.1 Atrophy of kidney (terminal); R16.0 Hepatomegaly, not elsewhere classified; R91.8 Other nonspecific abnormal finding of lung field
CPT/HCPCS: 82565; 84520; 74177; 36415; Q9967

== ENCOUNTER → 2023-07-31 | Outpatient (CLI) | payer MEDICARE ==
[2023-07-31 13:45] LABS: African American GFR (CKD) 43 (>60 ml/min/1.73 sqM); Blood Urea Nitrogen 31 mg/dL (9-20); Non-African American GFR(CKD) 37 (>60 ml/min/1.73 sqM)
--- NOTE | 2023-07-31 16:04 | CT ---
EXAMINATION TYPE: CT chest wo con DATE OF EXAM: 07/31/2023 COMPARISON: 04/15/2023 HISTORY: lung lesions CT DLP: 418 mGycm, Automated exposure control for dose reduction was used. CONTRAST: Performed injected with mL of . TECHNIQUE: Axial images were obtained at 5 mm thick sections. Reconstructed images are reviewed on [employer] computer in the coronal plane. FINDINGS: Portion of the thyroid visualized is normal. There is a ring type lesion at the right apex with central low density measuring 0.9 cm. This was pre sent previously.. Series 4 image 7. There is a 1.6 cm pleural-based density anterior lateral right apex. This appears to be new. Series 4 image 13. There is a 1.4 x 0.8 cm oval density posterior lateral right apex. This appears to be new. Series 4 i mage 14. There is a 0.6 cm nodule peripheral posterior lateral right upper lung field. This may be increased f rom comparison. Series 4 image 20. There is a large pleural-based density anterolateral right upper lung field measuring 5.1 cm in lengt h with spiculated margin adjacent to the lung field. This has a depth of approximately 1.3 cm. This m ay have been cavitary on the prior exam but appear stable in size. There is a 1.1 cm density within the right midlung anterior location. Series 4 image 27. This appears larger than comparison. There is a 0.7 cm thickening along the vascular structure right middle lobe. Series 4 image 31 this m ay be new. There is a 1.0 cm nodule at the left base. This area appears larger than comparison. There is a 2.3 x 1.0 cm lobular density above the right diaphragm. This was present previously and th is has enlarged from the comparison of 1.8 x 0.9 cm. Series 4 image 37. There is nodule above the right diaphragm measuring 0.8 cm. This has enlarged from comparison. There is a posterior lateral left lung nodule measuring 1.0 cm. Series 4 image 38. This was present p reviously. There is a lobular 3.9 x 3.1 cm left posterior base mass. This has enlarged over the interval. X line there is a 1.0 cm density posterior to the right diaphragm, series 4 image 43. This has developed ov er the interval. No enlarged mediastinal or hilar adenopathy is evident. The ascending aorta diameter at the level o f the main pulmonary artery is 4.4 cm. The main pulmonary artery diameter at the bifurcation is 3.2 cm. Coronary artery calcification is present. Limited CT sections are obtained through the upper abdomen. Abdomen is essentially unremarkable. IMPRESSION: 1. Multiple new or enlarging nodules and lung masses present bilaterally. PET/CT recommended for amelie tional workup.
== END | disposition home or self-care (01) ==
LOC: RADCTMAIN 12:58
PROVIDERS: ATTEND Internal Medicine Critical Care Medicine
DX: I26.99 Other pulmonary embolism without acute cor pulmonale (principal)
CPT/HCPCS: 36415; 71250; 82565; 84520

== ENCOUNTER 2023-09-11 10:36 | Day surgery (SDC) | payer MEDICARE ==
[2023-09-09 12:57] VITALS: BMI 29.0
[~2023-09-11 10:36] MED LIST changes: +LIDOCAINE 1% (10MG/ML) FOR IV START INTRADERMA PRN
[2023-09-11] MEDS: LACTATED RINGERS 1,000 ML IV SCH (11:22)
--- NOTE | 2023-09-11 11:23 | CT ---
EXAMINATION TYPE: CT chest wo con CT DLP: 745 mGycm, Automated exposure control for dose reduction was used. DATE OF EXAM: 09/11/2023 11:08 AM COMPARISON: 07/31/2023, PET/CT 06/12/2023 CLINICAL INDICATION:Male, 78 years old with history of ION Bronchoscopy; [facility], pre bronchial navigatio n TECHNIQUE: Multiple axial images were obtained through the chest. Sagittal and coronal reformats were created for review. Contrast used: mL of (None if empty) Oral contrast used: (None if empty) FINDINGS: LUNGS/ PLEURA: Scattered cavitating lesions throughout the lungs with thickening along the pleura: Ma sslike thickening in the left lung base measuring up to 3.8 x 3.0 cm.. Thickening along the pleura on the left anterior upper lung measuring up to 37 x 16 mm with cavitation. Right middle lobe pulmonary nodule measuring up to 19 mm. Pleural thickening along the right lung base laterally measuring up to 46 8 x 11 mm. Additional scattered smaller scattered pulmonary nodules identified. No focal consolid ation, pneumothorax or pleural effusion. AIRWAY: Patent and unremarkable. HEART: The heart is mildly enlarged for size. There is coronary artery atherosclerosis. MEDIASTINUM: No gross evidence of adenopathy. VASCULATURE: No aortic aneurysm. Atherosclerosis of the arterial vasculature. MUSCULOSKELETAL: No acute osseous abnormalities SOFT TISSUES/LYMPH NODES: Unremarkable. LOWER NECK: No significant findings. UPPER ABDOMEN: Nodular contour to liver. Scattered colonic diverticula. IMPRESSION: 1. Scattered cavitary lesions and pulmonary nodules with left lower lung suspected mass. Additionall y there are at least 2 areas of peripheral thickening along the pleura. The most FDG avid area was th e left upper lung peripheral somewhat linear consolidation as well as tiny nodules/cavitary lesions. 2. Suspected hepatic cirrhosis. 3. Colonic diverticulosis.
[2023-09-11] MEDS: INSULIN ASPART (NovoLOG) 100 UNIT/ML VIAL SQ ONE ×2 (12:02→15:01)
[2023-09-11] MEDS: DEXAMETHASONE SOD PHOSPHATE 4 MG/ML 1 ML VIAL IV ONE (12:02)
[2023-09-11] MEDS: ONDANSETRON 4 MG/2 ML VIAL IVP ONE (12:02)
[2023-09-11] MEDS ORDERED: ePHEDrine 50 MG/ML 1 ML VIAL ONE (12:20)
[2023-09-11] MEDS ORDERED: PROPOFOL 10 MG/ML 20 ML VIAL IV ONE (12:20)
[2023-09-11] MEDS ORDERED: PHENYLEPHRINE-0.9% NACL SYG 1,000 MCG/10 ML SYRINGE ONE (12:20)
[2023-09-11] MEDS ORDERED: NEOSTIGMINE 1 MG/ML 10 ML VIAL ONE (12:20)
[2023-09-11] MEDS ORDERED: SUCCINYLCHOLINE CHLORIDE 200 MG/10 ML VIAL IV ONE (12:20)
[2023-09-11] MEDS ORDERED: LIDOCAINE 1% INJ 10MG/ML (20 ML MDV) ONE (12:20)
[2023-09-11] MEDS ORDERED: fentaNYL (PF) 50 MCG/ML 2 ML AMP ONE (12:20)
[2023-09-11] MEDS ORDERED: ROCURONIUM 10 MG/ML (5 ML VIAL) IV ONE (12:20)
[2023-09-11] MEDS ORDERED: GLYCOPYRROLATE 0.2 MG/ML 2 ML VIAL ONE (12:20)
--- NOTE | 2023-09-11 14:20 | P.PCN ---
Date of Procedure: 09/11/23 Operative Findings: - Flexible bronchoscopy - Robotic-assisted bronchoscopy and addition to radial ultrasound evaluation of the left upper lobe pulmonary consolidation/cavitary mass and left lower lobe mass - Robotic-assisted test monitor needle aspirate, transbronchial biopsies, transbronchial brushing of the left lower lobe mass - Robotic-assisted test monitor needle aspirate, transbronchial biopsies, transbronchial brushing of the left upper lobe mass - Bronchioloalveolar lavage of the left upper lobe mass Anesthesia: YAZAN Surgeon: Edita Loyola Estimated Blood Loss (ml): 0 Pathology: other Condition: stable Disposition: same day Operative Findings: A physical exam was performed. Informed consent was obtained from the patient after explaining all the risks (pneumothorax, life threatening bleeding, infection and adverse effects due to medications), benefits and alternatives to the procedure which the patient appeared to understand and so stated. The patient was connected to the monitoring devices. General anesthesia was induced and the patient was intubated by anesthesia. A final timeout was performed and the procedure confirmed by the attending staff bronchoscopist. The bronchoscope was inserted and the airway examined. The airway examination was within normal limits. There was some limited secretions that were suctioned out without any major difficulties. The flexible bronchoscope was removed and the robotic bronchoscope was inserted. Registration was completed. I next guided the robotic bronchoscope using the navigation system into the Left upper lobe superior lingular left lower lobe. The radial EBUS probe was placed through the bronchoscope and confirmed abnormal u/s images vs normal lung. A needle was placed through the working channel and under fluoroscopic guidance, we sampled the area thought to have the mass twice. We then used a cloud biopsy pattern with ultrasound confirmation for 6 additional passes with the needle. I utilize a 21-gauge. U/S evaluation was then used to reconfirm location. Forceps were next introduced through working channel and extended the appropriate distance and 2 transbronchial biopsies were performed using fluoroscopic guidance. The u/s probe was then reinserted to confirm location. When confirmed this process was repeated for a total of 8 transbronchial biopsies. After that a brush was placed through the extendable working channel for 1 pass with fluoroscopic guidance. U/S evaluation was then used to confirm location. I next guided the robotic bronchoscope using the navigation system into the Left upper lobe. The radial EBUS probe was placed through the bronchoscope and confirmed abnormal u/s images vs normal lung. A needle was placed through the working channel and under fluoroscopic guidance, we sampled the area thought to have the mass with a 23 gauge needle and a total of 3 passes were taken . U/S evaluation was then used to reconfirm location. Forceps were next introduced through working channel and extended the appropriate distance and 2 transbronchial biopsies were performed using fluoroscopic guidance. The u/s probe was then reinserted to confirm location. When confirmed this process was repeated for a total of 8 transbronchial biopsies. After that a brush was placed through the extendable working channel for 1 pass with fluoroscopic guidance. 40ml of saline was then instilled into the area of the lesion. The robotic bronchoscope was removed and the airway inspected with a flexible bronchoscope and 10 ml of effluent from the BAL was collected. The robot cath was removed and a flexible bronchoscope ( Olympus IT bronchoscope) was inserted. The airways were inspected and cleared of secretions and blood. Fluoroscopic check for pneumothorax was negative upon completion of the procedure. There was 0 ml blood loss with the procedure. FINDINGS: 1.The airways appeared normal 2 Successful navigation, ultrasonographic identification, and biopsies of left upper lobe pulmonary and left lower masses 3.The radial ultrasound view was concentric RECOMMENDATIONS: Await pathology and cytology results The referring physician will be alerted to the results when available. The patient was advised to follow up with the referring physician with the biopsy results Patient will be called with results.
[2023-09-11] MEDS: IV FLUID CONTINUATION 1,000 ML IV ONE (14:22)
[2023-09-11 14:34] LABS: Glucose,Whole Blood 205 mg/dL (70-110)
[2023-09-11 14:40] VITALS: TEMP 97.3
[2023-09-11 15:17] VITALS: RESP 18
--- NOTE | 2023-09-11 15:22 | XR ---
EXAMINATION TYPE: XR chest 1V DATE OF EXAM: 09/11/2023 3:00 PM CLINICAL INDICATION:Male, 78 years old with history of post bx; [facility] COMPARISON: CT same day. TECHNIQUE: XR chest 1V Frontal view of the chest. FINDINGS: Lungs/Pleura: Haziness the left lung predominantly in the left mid and lower aspect. Right lung is relatively clear . No new nodule density are better appreciated on same day CT. There is no evidence of pleural effusi on, focal consolidation, or pneumothorax. Pulmonary vascularity: Unremarkable. Heart/mediastinum: Cardiomediastinal silhouette is unremarkable. Musculoskeletal: No acute osseous pathology. Other findings: None IMPRESSION: 1. Haziness to the left lung possibly in the setting of atelectasis versus pulmonary edema. Clinical correlation consider short-term follow-up recommended. 2. Nodular densities bilaterally are more apparent on same day CT.
[2023-09-11 15:52] VITALS: BP 145/78; PULSE 64
--- NOTE | 2023-09-12 18:59 | FL ---
EXAMINATION TYPE: FL bronchoscopy Intraoperative/procedural fluoroscopic services were provided. Tota l fluoroscopy time is 3 minutes 3 seconds with a total of 4 submitted images to PACS. Please see the operative/procedural note for further details. DAP: 16.549 Gycm2
== END 2023-09-11 15:55 | disposition home or self-care (01) ==
LOC: ORWHC2ENDO 10:36
PROVIDERS: ATTEND Internal Medicine Critical Care Medicine
DX: R91.8 Other nonspecific abnormal finding of lung field (principal); K57.30 Diverticulosis of large intestine without perforation or abscess without bleeding
CPT/HCPCS: 71045; 71250; 31628; 31629; 31623; 31624; J0330; J1100; J2710; J2405; J2001; J3010; J2704; J2371; S2900; 88305; 88312

== ENCOUNTER 2023-10-02 10:54 | Day surgery (SDC) | payer MEDICARE ==
[2023-10-02] MEDS: LACTATED RINGERS 1,000 ML IV SCH (11:31)
[2023-10-02] MEDS: ATROPINE SULFATE 0.4 MG/ML 1 ML VIAL IM ONE (11:39)
[2023-10-02 11:40] VITALS: RESP 16; TEMP 98
[2023-10-02 11:40] LABS: Glucose,Whole Blood 200 mg/dL (70-110)
[2023-10-02] MEDS ORDERED: LIDOCAINE 1% INJ 10MG/ML (20 ML MDV) ONE (12:04)
[2023-10-02] MEDS ORDERED: PROPOFOL 10 MG/ML 20 ML VIAL IV ONE (12:04)
[2023-10-02] MEDS ORDERED: fentaNYL (PF) 50 MCG/ML 2 ML AMP ONE (12:04)
[2023-10-02] MEDS: LIDOCAINE 2% (PF) 20 MG/ML 2 ML VIAL INHALATION ONE (12:11)
[2023-10-02 13:01] VITALS: BP 121/67; PULSE 92
--- NOTE | 2023-10-02 13:12 | PCN ---
PROCEDURE NOTE PULMONARY/CRITICAL CARE PROCEDURE NOTE: PROCEDURES PERFORMED: Bronchoscopy; airway examination; therapeutic lavage; BAL of the right middle lobe; and BAL, lingula. PREOPERATIVE DIAGNOSIS: Bilateral cavitating lung lesions, rule out infection. POSTOPERATIVE DIAGNOSIS: Bilateral cavitating lung lesions, rule out infection. There was informed consent and universal timeout. The patient's procedure took place in room #[facility]. ANESTHESIA PROVIDED: General anesthesia. FIRST MENTAL HEALTH PROGRAM DIRECTOR: Dr. Jessica Martinez. DESCRIPTION OF PROCEDURE: After the patient was adequately sedated and being fully monitored, the bronchoscope was inserted through the left nostril. It passed through the left nasopharynx into the oropharynx. The hypopharynx was identified and topicalized. There was a fair amount of secretions noted in the hypopharynx. They were suctioned. Afterwards, the anterior commissure, true cords, false cords, piriform sinuses, right and left, vallecula, epiglottis, all appeared normal. The glottic opening was topicalized with lidocaine. The bronchoscope was pushed through the glottic opening into the trachea. The trachea itself was normal, except for the fact that there were secretions noted throughout. They were suctioned. The tracheal little was sharp. The right and left mainstem were topicalized. Next, we did evaluation of the right upper lobe and its 3 segments, right middle lobe and its 2 segments, right lower lobe and its 5 segments, left upper lobe proper and its 2 segments, lingula and its 2 segments, the left lower lobe and its 4 segments. There was some mild to moderate erythema and hyperemia of the airways. There was some mucosal friability. There was no dominant mass or tumor. The bronchoscope was then wedged into the lingula, we did a formal BAL, 30 mL of fluid was recovered. Next, we did a BAL in the right middle lobe, again 30 mL of fluid was recovered. Of note was the fact that there were thick secretions noted throughout. They looked purulent. They were suctioned. There was no bleeding. The patient tolerated the procedure well, was stable throughout the procedure. The bronchoscope was withdrawn and the patient will be recovered. MMODL / IJN: [id number] /
[2023-10-02 22:01] LABS: Appearance,BF Blood Tinged (Clear); RBC, Body Fluid 5025 /UL (0-2000)
[2023-10-02 22:06] LABS: Appearance,BF Cloudy (Clear); RBC, Body Fluid 1000 /UL (0-2000)
[2023-10-03 06:22] LABS: Appearance,BF Blood Tinged (Clear); RBC, Body Fluid 59000 /UL (0-2000)
[2023-10-03 10:00] LABS: Nucleated Cells, Body Fluid 3100 /UL
[2023-10-03 10:04] LABS: Nucleated Cells, Body Fluid 780 /UL
[2023-10-03 10:15] LABS: Nucleated Cells, Body Fluid 185 /UL
== END 2023-10-02 13:04 | disposition home or self-care (01) ==
LOC: ORWHC2ENDO 10:54
PROVIDERS: ATTEND Internal Medicine Critical Care Medicine
DX: J40 Bronchitis, not specified as acute or chronic (principal); I10 Essential (primary) hypertension; E78.5 Hyperlipidemia, unspecified; E11.9 Type 2 diabetes mellitus without complications; M06.9 Rheumatoid arthritis, unspecified; K74.60 Unspecified cirrhosis of liver; Z79.01 Long term (current) use of anticoagulants; Z79.85 Long-term (current) use of injectable non-insulin antidiabetic drugs; Z79.899 Other long term (current) drug therapy; Z88.8 Allergy status to other drugs, medicaments and biological substances
CPT/HCPCS: 87798 ×3; 87496; 87498; 87529; 88108; 88305; 89050; 87502; 87634; 87070; 87205; 87116; 87102; 87206; 87635; 31624; J0461; J2001 ×2; J3010; J2704

== ENCOUNTER → 2023-10-23 | Outpatient (CLI) | payer MEDICARE ==
--- NOTE | 2023-10-24 13:03 | PE ---
EXAMINATION TYPE: PET CT fusion skull to thigh DATE OF EXAM: 10/23/2023 COMPARISON: 09/11/2023 Prior PET/CT: 06/12/2023 HISTORY: Lung nodule TECHNIQUE: Following the intravenous administration of 10.82 mCi of F-18 FDG, whole body images are performed from the skull base to the midthigh. Images are reviewed on the computer in the coronal, a xial, and sagittal planes. Reconstructed rotating images are created on independent workstation and reviewed on the computer. A localization and attenuation correction CT is performed in conjunction with the PET scan. DLP: 75.25 mGycm SCAN: Initial Blood glucose: 97 mg/dL Average Mediastinum SUV: 2.11 Average Liver SUV: 2.66 FINDINGS: NECK: There is some focal uptake in the mid anterior septum, image 25, SUV 6.8. Direct visualization recommended. There is an additional area of focal uptake within the posterior left nasal passage, im age 25, SUV 6.85. Direct visualization can be performed. THORAX: There are multiple areas of increased signal within punctate nodules present bilaterally. Thi s can include the following: Image 66 right apex, SUV 4.7 anterior Image 67 posterior right apex, SUV 4.81 Image 73 posterior right upper lung, SUV 5.02 Image 73 right anterior upper lung, SUV 3.14 Image 76 adjacent to the posterior aortic arch, SUV 5.71. Image 76 posterior lateral right lung, SUV 4.31. Image 86, posterior to the descending thoracic aorta, SUV 7.61. Image 93, anterior lateral left lung, SUV 7.86. The more inferior aspect of this larger lesion has an elevated SUV of 10.8, image 99. A large pleural-based densities along the lateral right lower lung field, example image 117, SUV 8.77 Image 124, left posterior lateral lung base SUV 7.14. There is a pleural-based hyperintensity posterior lateral right lower lung field, image 109, SUV 4.9 There is a right peribronchial lymph node which has elevated SUV of 4.18, image 87. There is uptake within the medial aspect of the left infrahilar region, image 95, SUV 4.36. There are additional punctate densities within the bilateral lung kemp with elevated SUV. ABDOMEN: There is mild thickening of the left adrenal gland. SUV is below background with an SUV of 2 .37 PELVIS: There is uptake posterior-lateral to the pubic ramus within the soft tissues. Injury or metas tasis could be considered. SUV 5.02. There is uptake posterior to the coccyx within the soft tissues. Correlate for compression wound, SUV 5.25. OSSEOUS STRUCTURES: There may be some uptake within the right transverse process thoracic spine, imag e 95, SUV 5.06. LOCALIZATION CT: There is abdominal aortic aneurysm 4.4 cm. Diverticulosis without acute diverticulit is is to the sigmoid colon. COMPARISON: Nasal passage uptake is new. Previous areas of uptake are again present on the current ex amination. The pleural-based densities on the right are new. The right peribronchial lymph node may b e new. Uptake within the posterior soft tissues in the midline and posterior to the left pubic ramus were present previously. IMPRESSION: 1. New area of uptake along the right pleural costophrenic angle. 2. New punctate area within the mediastinum may be a right peribronchial lymph node. 3. Multiple stable pulmonary nodules and left pleural thickening. 4. Some nonspecific changes posterior to the coccyx and left pubic ramus present previously injury, i nfection, and metastasis could be considered.
== END | disposition home or self-care (01) ==
LOC: RADPETMAIN 06:59
PROVIDERS: ATTEND Internal Medicine Critical Care Medicine
DX: J92.9 Pleural plaque without asbestos (principal); M86.8X5 Other osteomyelitis, thigh; R91.8 Other nonspecific abnormal finding of lung field; R91.1 Solitary pulmonary nodule
CPT/HCPCS: 78815; A9552

== ENCOUNTER → 2023-11-04 | Outpatient (CLI) | payer MEDICARE ==
[2023-11-04 14:17] LABS: Partial Thromboplastin Time 25.6 sec (22.0-30.0)
[2023-11-04 19:10] LABS: Basophils # (A) 0.04 X 10*3/uL (0.00-0.10); Basophils % (A) 0.4 %; Eosinophils # (A) 0.07 X 10*3/uL (0.04-0.35); Eosinophils % (A) 0.7 %; HCT 37.8 % (39.6-50.0); HGB 12.1 g/dL (13.0-17.0); Lymphocytes # (A) 1.53 X 10*3/uL (0.90-5.00); Lymphocytes % (A) 14.5 %; MCH 31.4 pg (27.0-32.0); MCV 98.2 FL (80.0-97.0); Mean Platelet Volume 10.6 FL (9.5-12.2); Monocytes # (A) 0.55 X 10*3/uL (0.20-1.00); Monocytes % (A) 5.2 %; NRBC Per 100 WBC 0 X 10*3/uL (0.00-0.01); Neutrophils # (A) 8.27 X 10*3/uL (1.80-7.70); Neutrophils % (A) 78.3 %; Platelet Count 163 X 10*3/uL (140-440); RBC 3.85 X 10*6/uL (4.40-5.60); RDW 19.9 % (11.5-14.5); WBC 10.56 X 10*3/uL (4.50-10.00)
[2023-11-04 19:14] LABS: Blood Urea Nitrogen 33.8 mg/dL (9.0-27.0); Carbon Dioxide 22.5 mmol/L (21.6-31.8); Chloride 99 mmol/L (96-109); Glucose 307 mg/dL (70-110); Potassium 4.7 mmol/L (3.5-5.5); Sodium 134 mmol/L (135-145)
[2023-11-04 19:44] LABS: Appearance,Urine Clear (Clear); Bilirubin,Urine Negative (Negative); Blood,Urine Negative (Negative); Color,Urine Yellow (Yellow); Ketones,Urine Negative (Negative); Nitrite,Urine Negative (Negative); Specific Gravity,Urine 1.017 (1.001-1.030); Urobilinogen,Urine 0.2 E.U./DL
== END | disposition home or self-care (01) ==
LOC: LABPAT 13:24
PROVIDERS: ATTEND Thoracic Surgery (Cardiothoracic Vascular Surgery)
DX: Z01.818 Encounter for other preprocedural examination (principal); E86.0 Dehydration; I10 Essential (primary) hypertension; R91.1 Solitary pulmonary nodule; R58 Hemorrhage, not elsewhere classified; R94.31 Abnormal electrocardiogram [ECG] [EKG]; Z79.01 Long term (current) use of anticoagulants
CPT/HCPCS: 36415; 80051; 81003; 82565; 82947; 84520; 85025; 85610; 85730; 86850; 86900; 86901; 87086; 93005

== ENCOUNTER 2023-11-10 10:59 | Inpatient (IN) | payer MEDICARE ==
[~2023-11-10 10:59] MED LIST changes: -LACTATED RINGERS 1,000 ML IV SCH; +ONDANSETRON 4 MG/2 ML VIAL IVP PRN
[2023-11-10] MEDS: LACTATED RINGERS 1,000 ML IV SCH ×2 (11:35→17:36)
[2023-11-10] MEDS: ONDANSETRON 4 MG/2 ML VIAL IVP ONE (11:58)
[2023-11-10] MEDS: MIDAZOLAM 2 MG/2 ML VIAL IVP ONE (11:58)
[2023-11-10 11:59] LABS: Glucose,Whole Blood 147 mg/dL (70-110)
--- NOTE | 2023-11-10 12:18 | P.ANPRN ---
Procedure Note - Anesthesia - Invasive Line Left Arterial Line Time Out Performed: Yes Date of Procedure: 11/10/23 Time of Procedure: 11:45 Location of Patient: PreOp Preparation: Sterile Prep Arterial Line Location: Radial Ultrasound Used: No Needle Guage: 22G Narrative: Invasive line placement per sterile protocol utilized.[id number]
[2023-11-10] MEDS: IV FLUID CONTINUATION 1,000 ML IV ONE (12:25)
[2023-11-10] MEDS ORDERED: PHENYLEPHRINE-0.9% NACL SYG 1,000 MCG/10 ML SYRINGE ONE (12:44)
[2023-11-10] MEDS ORDERED: MIDAZOLAM 2 MG/2 ML VIAL ONE (12:44)
[2023-11-10] MEDS ORDERED: LIDOCAINE 1% INJ 10MG/ML (20 ML MDV) ONE (12:44)
[2023-11-10] MEDS ORDERED: SUCCINYLCHOLINE CHLORIDE 200 MG/10 ML VIAL IV ONE (12:44)
[2023-11-10] MEDS ORDERED: NEOSTIGMINE 1 MG/ML 10 ML VIAL ONE (12:44)
[2023-11-10] MEDS ORDERED: PROPOFOL 10 MG/ML 20 ML VIAL IV ONE (12:44)
[2023-11-10] MEDS ORDERED: ACETAMINOPHEN IV (For NPO) 1,000 MG/100 ML VIAL ONE (12:44)
[2023-11-10] MEDS ORDERED: KETAMINE HCL IN 0.9 % NACL 50 MG/5 ML SYRINGE ONE (12:44)
[2023-11-10] MEDS ORDERED: GLYCOPYRROLATE 0.2 MG/ML 2 ML VIAL ONE (12:44)
[2023-11-10] MEDS ORDERED: ROCURONIUM 10 MG/ML (5 ML VIAL) IV ONE (12:44)
[2023-11-10] MEDS ORDERED: fentaNYL (PF) 50 MCG/ML 2 ML AMP ONE (12:44)
[2023-11-10] MEDS: BUPIVACAINE (PF) 0.5% 30 ML VIAL SQ ONE (13:21)
--- NOTE | 2023-11-10 14:49 | P.OP ---
Date of Procedure: 11/10/23 Preoperative Diagnosis: Bilateral lung nodules Postoperative Diagnosis: Same Procedure(s) Performed: 1. Bronchoscopy 2. Left video assisted thorascopic surgery with extensive lysis of adhesions 3. Wedge resection of lingula 4. Intercostal nerve block - 3 levels Anesthesia: EVELYNA Surgeon: Fidel Horowitz Estimated Blood Loss (ml): 25 Pathology: other (1. Wedge resection for permanent 2.) Condition: stable Disposition: PACU Indications for Procedure: This is a 78 year-old N with a remote hx of tobacco use, COVID-19 infection and RA on prednisone who developed bilateral pulmionary nodules and cavitary lesions. The patient underwent biopsy which was inconclusive. [place], further tissue diagnosis with culture was recommended. Operative Findings: Significant adhesions on left side from previous empyema taken down with harmonic. Large cavitary mass in lingula noted to have multiple sulfur granules and stigmata of chronic fungal infection. Description of Procedure: The patient underwent arterial line in the pre-operative suite. He was brought back to the operating room and placed in the supine position. He was intubated with a double lumen tube and bronchoscopy was performed to check placement and for diagnostic purposes. The bilateral airways appeared inflamed but there were no discrete lesions. There was mild to moderate secretions bilaterally. The patient was then positioned in the right lateral decubitus position and his left chest was prepped and draped in the usual sterile fashion. The double lumen tube was once again checked and the left lung was isolated. Antibiotics were given. I made a 2cm incision in the 7th intercostal space posterior axillary line. Insertion of the camera revealed significant adhesions. Some of these were taken down using the endo kittner. At this point another 2cm incision was made in the 9th intercostal space mid axillary line and 4th intercostal space anterior axillary line. 0.25% marcaine was used to perform intercostal nerve blocks at each of these levels. The lingula and upper lobe was significantly adhesed to the chest wall and this was taken down using the harmonic scalpel. The cavitary lesion in the lingula was clearly evident of some soft of fungal infection with sulfur granules. Serial firings of the endo ANGEL re-inforced purple loads were used to wedge out the entire lesion in the lingula. This was placed in a retrieval bag and removed from the chest cavity. The left chest was irrigated and 28F chest tube inserted via the inferior incision. All incisions were closed in layers and two lung ventilation resumed.
[2023-11-10] MEDS: HYDROmorphone 0.5 MG/0.5 ML SYRINGE IVP PRN (15:07)
--- NOTE | 2023-11-10 15:35 | XR ---
EXAMINATION TYPE: XR chest 1V portable DATE OF EXAM: 11/10/2023 HISTORY: Status post left-sided lobectomy COMPARISON: 09/11/2023 TECHNIQUE: Single view of the chest is submitted. FINDINGS: Postoperative changes of partial left-sided lobectomy. Increased opacity left perihilar and left lowe r lobe region. Left-sided chest tube is in place without sizable pneumothorax. Right basilar linear a telectasis and/or parenchymal scarring. The heart is stable. Hilar and mediastinal structures are within normal limits. Degenerative changes are seen of the dorsal spine. IMPRESSION: 1. Postoperative changes as noted.
[2023-11-10] MEDS ORDERED: ONDANSETRON 4 MG/2 ML VIAL IVP PRN (16:10)
[2023-11-10] MEDS ORDERED: traMADol 50 MG TAB PO PRN (16:10)
[2023-11-10] MEDS ORDERED: bisacodyL 10 MG SUPP RECTAL PRN (16:10)
[2023-11-10] MEDS ORDERED: DEXTROSE 50% SYRINGE 50 ML IVP PRN ×2 (16:10)
[2023-11-10] MEDS ORDERED: IPRATROPIUM-ALBUTEROL 3 ML NEB IH PRN (16:10)
[2023-11-10] MEDS: IPRATROPIUM-ALBUTEROL 3 ML NEB IH SCH (16:29)
[2023-11-10 16:30] LABS: Glucose,Whole Blood 143 mg/dL (70-110)
[2023-11-10] MEDS: INSULIN ASPART (NovoLOG) 100 UNIT/ML VIAL SQ SCH ×2 (17:03→17:35)
[2023-11-10] MEDS: DEXAMETHASONE SOD PHOSPHATE 4 MG/ML 1 ML VIAL IV ONE (17:20)
[2023-11-10] MEDS: GABAPENTIN 300 MG CAP PO SCH (17:35)
[2023-11-10] MEDS: HEPARIN SODIUM,PORCINE 5,000 UNIT/ML 1 ML VIAL SQ SCH (17:35)
[2023-11-10 20:12] LABS: Glucose,Whole Blood 111 mg/dL (70-110)
[2023-11-10] MEDS: ACETAMINOPHEN TAB 325 MG TAB PO PRN (21:57)
[2023-11-10] MEDS: ATORVASTATIN 80 MG TAB PO SCH (21:58)
[2023-11-11] MEDS: PANTOPRAZOLE 40 MG TABLET PO SCH (03:50)
--- NOTE | 2023-11-11 04:21 | P.CNPUL ---
History of Present Illness Consult date: 11/11/23 Requesting physician: Fidel Horowitz Reason for consult: other (Status postoperative day #1 following VATS with wedge resection of lingula) Chief complaint: Brought in for an elective video-assisted thorascopic surgery with wedge re History of present illness: Patient is a 78-year-old white male with past medical history significant for diabetes mellitus, hypertension, dyslipidemia, rheumatoid arthritis, pulmonary embolism anticoagulated on Eliquis, remote tobacco use, and is currently undergoing work up for multiple pulmonary nodules. He follows with Dr. Bell in the pulmonary office. Patient had a CT of the chest March, which showed interval development of multiple bilateral pulmonary nodules, measuring up to 1.6 cm. There are areas of pleural thickening in the left upper lobe with interval cavitation. Differential included infectious/inflammatory versus malignancy. PET scan on 06/15/2023 redemonstrated the scattered cavitary lesions throughout the lungs with increased metabolic activity. There was an area within the lingula which is a flat like morphology of mild activity on prior now with cavitation with increased metabolic activity. Findings were concerning for neoplastic process, however, infectious/inflammatory process was not excluded. Patient did be undergo robotic assisted bronchoscopy with transbronchial biopsies on 09/11/23. Cytology was nondiagnostic for malignant process. Patient did have a follow-up bronchoscopy with BAL done on 10/02/2023, microbiology negative without cytological malignant cells found. BAL may have been positive for CMV, as the patient was treated with antivirals. Patient did have another follow-up PET scan which showed new areas of uptake along the right pleural costophrenic angle, new punctate area within the mediastinum, and multiple stable pulmonary nodules with left pleural thickening. Patient denies infectious like symptoms. Denies fevers, cough, chest pain hemoptysis. Denies unexplained weight loss. Patient was brought into the hospital yesterday 11/10/2023 for a left video-assisted thorascopic surgery with wedge resection of the lingula. Pathology and microbiology are pending. Postoperatively, the patient was sent to 3 S. He is currently lying in bed, on 2 L/min nasal cannula, in no acute distress. Postoperative chest x-ray shows postoperative changes. No sizable pneumothorax or pleural effusions. Left-sided chest tube in place. Pleur-evac is connected to suction at -20 cm H2O. There is a mild intermittent airleak. A total of 140 cc of serosanguineous output so far. Incentive spirometer is at bedside. Vital signs are stable. Review of Systems REVIEW OF SYSTEMS: CONSTITUTIONAL: Denies any recent significant weight loss or weight gain. EYES: Denies change in vision. EARS, NOSE, MOUTH, THROAT: Denies headaches, denies sore throat. CARDIOVASCULAR: Denies radiating chest pain palpitations or syncopal episodes. Admits some postsurgical left lateral incisional chest pain. RESPIRATORY: Denies shortness of breath, cough, congestion or hemoptysis. GASTROINTESTINAL: Denies change in appetite, abdominal pain, nausea and vomiting, or diarrhea GENITOURINARY: Denies hematuria, denies infections. MUSKULOSKELETAL: Denies pain, denies swelling. INTEGUMENTARY: Denies rash, denies eczema. NEUROLOGICAL: Denies recent memory loss, no recent seizure activity. PSYCHIATRIC: Denies anxiety, denies depression. HEMATOLOGIC/LYMPHATIC: Denies anemia, denies enlarged lymph node Past Medical History Past Medical History: Diabetes Mellitus, Hearing Disorder / Deafness, Hyperlipidemia, Hypertension, Pulmonary Embolus (PE), Rheumatoid Arthritis (RA) Additional Past Medical History / Comment(s): Per Dr. Hughes H+P CT chest performed on Mar 2023, showed multiple bilat pulmonary nodules. aortic aneurysm, empyema, colitis, very [place], Diverticulosis. History of Any Multi-Drug Resistant Organisms: None Reported Past Surgical History: Hernia Repair Additional Past Surgical History / Comment(s): hemorrhoidectomy, surgeries for sebaceous cysts umbilical hernia repair,colonoscopy, surgery for empyema. Past Anesthesia/Blood Transfusion Reactions: No Reported Reaction Additional Past Anesthesia/Blood Transfusion Reaction / Comment(s): Hx of blood transfusion. No reaction. Smoking Status: Former smoker - Past Family History Son(s) Family Medical History: Cancer Additional Family Medical History / Comment(s): brain cancer Brother(s) Family Medical History: Cancer Additional Family Medical History / Comment(s): colon cancer Sister(s) Family Medical History: Cancer Medications and Allergies Home Medications Medication Instructions Recorded Confirmed Type Calcium Carbonate [Calcium] 600 mg PO QAM 02/01/22 11/04/23 History Cholecalciferol [Vitamin D3 (25 25 mcg PO QAM 02/01/22 11/04/23 History Mcg = 1000 Iu)] Empagliflozin [Jardiance] 25 mg PO QAM 02/01/22 11/04/23 History predniSONE 5 mg PO DAILY 05/09/22 11/10/23 History Semaglutide [Ozempic] 1 mg SQ TU 07/10/22 11/04/23 History Acetaminophen Tab [Tylenol] 650 mg PO Q6HR PRN tab 07/25/22 11/04/23 Rx Gabapentin 600 mg PO TID #9 tab 07/25/22 11/10/23 Rx Apixaban [Eliquis] 5 mg PO BID #60 tab 07/30/22 11/04/23 Rx Atorvastatin [Lipitor] 80 mg PO HS 09/09/23 11/04/23 History Cortrophin Gel (Dose Unknown) 1 dose TOPICAL WEFR 09/09/23 11/04/23 History Furosemide [Lasix] 30 mg PO QAM 09/09/23 11/04/23 History Insulin Degludec [Tresiba 32 units SQ HS 09/09/23 11/10/23 History Flextouch U-100 Pen] Insulin Lispro [humaLOG Kwikpen] 15 unit SQ TID-W/MEALS 09/09/23 11/10/23 History Tamsulosin [Flomax] 0.4 mg PO DAILY 09/30/23 11/10/23 History atenoloL [Tenormin] 25 mg PO DAILY 09/30/23 11/10/23 History lisinopriL 30 mg PO DAILY 09/30/23 11/10/23 History Allergies Allergy/AdvReac Type Severity Reaction Status Date / Time abatacept [From [facility]] Allergy Rash/Hives Verified 11/04/23 14:37 Physical Exam Vitals: Vital Signs Temp Pulse Pulse Resp BP BP BP 11/11/23 02:00 95 18 11/11/23 00:00 100.0 F H 95 18 146/77 11/10/23 20:00 85 18 11/10/23 19:55 98.2 F 84 16 159/78 11/10/23 18:25 72 16 11/10/23 18:14 72 11/10/23 18:01 72 11/10/23 16:00 72 16 117/60 11/10/23 15:39 75 16 119/58 11/10/23 15:26 73 16 114/53 118/56 05/13/24 15:11 68 16 129/63 134/65 11/10/23 14:54 73 16 127/62 131/59 11/10/23 14:39 97.2 F L 80 14 128/46 129/51 11/10/23 11:35 97.4 F L 91 18 140/73 Pulse Ox 11/11/23 02:00 11/11/23 00:00 96 11/10/23 20:00 11/10/23 19:55 99 11/10/23 18:25 11/10/23 18:14 11/10/23 18:01 11/10/23 16:00 99 11/10/23 15:39 98 11/10/23 15:26 100 11/10/23 15:11 98 11/10/23 14:54 99 11/10/23 14:39 99 11/10/23 11:35 99 Intake and Output 11/10/23 11/10/23 11/11/23 14:59 22:59 06:59 Intake Total 1050 880 Output Total 20 235 215 Balance 1030 645 -215 Intake: IV 1050 300 Intake, IV Titration 100 Amount Lactated Ringers 1,000 ml 100 @ 50 mls/hr IV .Q20H [facility] Rx#:[id number] Oral 480 Output: Chest Tube Drainage 10 40 Chest Tube Left 10 40 Urine 225 175 Estimated Blood Loss 20 Other: Voiding Method Urinal Urinal Weight 85.9 kg GENERAL EXAM: Alert, 78-year-old white male, comfortable in no apparent distress. HEAD: Normocephalic and atraumatic EYES: Normal reaction of pupils, equal size. NOSE: Clear with pink turbinates. THROAT: No erythema or exudates. NECK: No masses, no JVD. CHEST: Left lateral chest tube to suction at -20 cm H2O. Mild intermittent air leak noted. LUNGS: Equal air entry with no crackles, wheeze, rhonchi or dullness. On 2 L/min nasal cannula. No conversational dyspnea or accessory muscle use.. CVS: S1 and S2 normal with no audible murmur, regular rhythm. No extra heart sounds ABDOMEN: No hepatosplenomegaly, active bowel sounds, no guarding or rigidity. SPINE: No scoliosis or deformity SKIN: No rashes CENTRAL NERVOUS SYSTEM: No focal deficits, tone is normal in all 4 extremities. EXTREMITIES: There is no peripheral edema, clubbing, or cyanosis. Peripheral pulses are intact. Results - Laboratory Findings Abnormal lab findings: Abnormal Labs 11/10/23 11/10/23 11/10/23 11:43 16:27 20:08 POC Glucose (mg/dL) 147 H 143 H 111 H - Diagnostic Findings Chest x-ray: image reviewed Assessment and Plan Assessment: Multiple bilateral cavitary pulmonary nodules, patient has had previous bronchoscopies which were essentially nondiagnostic, and is status postoperative day #1 following a left video-assisted thorascopic surgery with wedge resection of the lingula and lysis of adhesions. Differential includes inflammatory/infectious versus neoplastic processes. Pathology and microbiology are pending. Remote history of tobacco use History of pulmonary emboli, chronically anticoagulated on Eliquis History of hypertension History of hyperlipidemia History of insulin-dependent diabetes mellitus type II, complicated by diabetic neuropathy History of rheumatoid arthritis Plan: Patient is currently recovering on 3 S. No perioperative complications reported. Currently on 2 L/min nasal cannula, SpO2 is 99%. Wean off FiO2 as tolerated. Currently awaiting pathology and microbiology. Postoperative chest x-ray reviewed, there are postsurgical changes without any obvious pneumothoraces or effusions. Left-sided chest tube in place. Pleur- evac currently hooked to -20 cm H2O. There is a mild intermittent air leak. Repeat chest x-ray later this morning Encourage incentive spirometer As needed analgesics are ordered. Vital signs are stable We will continue to follow I have personally seen and examined the patient, performed the documentation and the assessment and plan as written. Number of minutes spent on the visit:20 Time with Patient: Greater than 30
[2023-11-11 06:20] LABS: Glucose,Whole Blood 94 mg/dL (70-110)
[2023-11-11] MEDS: INSULIN DETEMIR (LEVEMIR) 100 UNIT/ML SYR SQ SCH (06:31)
--- NOTE | 2023-11-11 08:20 | XR ---
EXAMINATION TYPE: XR chest 1V DATE OF EXAM: 11/11/2023 7:00 AM CLINICAL INDICATION:Male, 78 years old with history of post lobectomy; COMPARISON: Chest radiographs from 11/10/2023 TECHNIQUE: XR chest 1V Frontal view of the chest. FINDINGS: Lungs/Pleura: There is small right pleural effusion with consolidation changes within the left mid an d lower lung. Pulmonary vascularity: Unremarkable. Heart/mediastinum: Cardiomediastinal silhouette is unremarkable. Musculoskeletal: No acute osseous pathology. Other findings: None Lines/Tubes: Left thoracotomy tube is present without evidence of pneumothorax. IMPRESSION: 1. Post left lobectomy with thoracotomy tube in place. No evidence for pneumothorax. 2. Small right pleural effusion.
--- NOTE | 2023-11-11 08:50 | P.PN ---
Subjective Progress Note Date: 11/11/23 Principal diagnosis: Bilateral lung nodules. Previous medical history of hypertension, hyperlipidemia, PE on Eliquis for anticoagulation, rheumatoid arthritis on chronic prednisone, diabetes, previous tobacco dependence, previous COVID infection. POD #1 bronchoscopy, left video assisted thorascopic surgery with extensive lysis of adhesions, wedge resection of lingula, intercostal nerve block - 3 levels The patient was seen and examined sitting up in recliner on the cardiac stepdown unit in no acute distress. Does complain of mild postsurgical discomfort although not significant enough to take any narcotics, states pain is controlled with Tylenol. Denies shortness of breath. Patient has been ambulatory in the room with assistance. Left pleural chest tube present to continuous wall suction, no airleak present, placed to waterseal. Patient is currently on room air and in sinus rhythm, able to achieve 1500 mL on his incentive spirometry. No other new concerns. Objective - Vital Signs Vital signs: Vital Signs Temp 98.3 F 11/11/23 05:37 Pulse 98 11/11/23 03:54 Resp 20 11/11/23 03:54 BP 122/63 11/11/23 03:54 Pulse Ox 94 L 11/11/23 05:55 FiO2 Intake & Output 11/10/23 11/11/23 11/11/23 18:59 06:59 18:59 Intake Total 1930 Output Total 20 850 Balance 1910 -850 Weight 85.9 kg 87.6 kg Intake: IV 1350 Intake, IV Titration 100 Amount Lactated Ringers 1,000 ml 100 @ 50 mls/hr IV .Q20H [facility] Rx#:[id number] Oral 480 Output: Chest Tube Drainage 100 Chest Tube Left 100 Urine 750 Estimated Blood Loss 20 Other: Voiding Method Urinal Urinal - Exam CONSTITUTIONAL: Appears comfortable, cooperative, no acute distress RESPIRATORY: Lungs sounds diminished bilaterally. Respirations even, nonlabored. Currently on room air with oxygen saturation 94%. Able to achieve 1500 mL on incentive spirometry. Strong cough. CARDIOVASCULAR: S1, S2 present. Regular rate and rhythm, sinus rhythm on telemetry. Palpable peripheral pulses bilaterally. No edema present. No calf pain or tenderness noted. SCDs present. GASTROINTESTINAL: Abdomen soft, nontender, nondistended. Active bowel sounds present 4 quadrants. Tolerating diet. Denies flatus GENITOURINARY: Continues to void clear, yellow urine INTEGUMENTARY: Skin is warm and dry with evidence of good perfusion NEUROLOGIC: Cranial nerves II through XII intact MUSKULOSKELETAL: Able to move all extremities, strength equal bilaterally, gait normal PSYCHIATRIC: Alert and oriented to person place and time, appropriate affect, intact judgment and insight INVASIVE LINES AND TUBES: Left pleural chest tubes present and connected to wall suction, no air leaks present, 90 mL serosanguineous drainage overnight, 190 mL since surgery - Allied health notes Allied health notes reviewed: nursing - Labs Labs: Abnormal Lab Results - Last 24 Hours (Table) 11/10/23 11/10/23 11/10/23 Range/Units 11:43 16:27 20:08 POC Glucose (mg/dL) 147 H 143 H 111 H (70-110) mg/dL - Imaging and Cardiology Chest x-ray: image reviewed Assessment and Plan Assessment: Bilateral lung nodules, status post bronchoscopy, left video assisted thorascopic surgery with extensive lysis of adhesions, wedge resection of lingula, intercostal nerve block - 3 levels History of hypertension Hyperlipidemia PE on Eliquis for anticoagulation Rheumatoid arthritis on chronic prednisone Diabetes Previous tobacco dependence Previous COVID infection. Plan: Continue pleural chest tube to waterseal, monitor drainage Encourage incentive spirometry use Increase activity as tolerated Continue home medications Will restart Eliquis after chest tube removal GI/DVT prophylaxis Pain control with current medication regimen More recommendations to follow
[2023-11-11] MEDS: DAPAGLIFLOZIN PROPANEDIOL 10 MG TABLET PO SCH (08:55)
[2023-11-11] MEDS: CALCIUM CARBONATE 500 MG CHEWABLE PO SCH (08:55)
[2023-11-11] MEDS: lisinopriL 10 MG TAB PO SCH (08:55)
[2023-11-11] MEDS: FUROSEMIDE 10 MG TAB PO SCH (08:56)
[2023-11-11] MEDS: CHOLECALCIFEROL 25 MCG (1000 IU) TABLET PO SCH (08:56)
[2023-11-11] MEDS: TAMSULOSIN 0.4 MG CAP.ER.24H PO SCH (08:56)
[2023-11-11] MEDS: predniSONE 5 MG TAB PO SCH (08:56)
[2023-11-11] MEDS: NON FORMULARY DRUG (Semaglutide [Ozempic] 1 MG/0.75 ML Each) SQ SCH (08:56)
[2023-11-11] MEDS: atenoloL 25 MG TAB PO SCH (08:56)
[2023-11-11 11:59] LABS: Glucose,Whole Blood 170 mg/dL (70-110)
[2023-11-11 12:53] LABS: African American GFR (CKD) 57 (>60 ml/min/1.73 sqM); Anion Gap 4 mmol/L; Blood Urea Nitrogen 30 mg/dL (9-20); Calcium 8.3 mg/dL (8.4-10.2); Carbon Dioxide 21 mmol/L (22-30); Chloride 108 mmol/L (98-107); Glucose 146 mg/dL (74-99); Non-African American GFR(CKD) 50 (>60 ml/min/1.73 sqM); Potassium 4.4 mmol/L (3.5-5.1); Sodium 133 mmol/L (137-145)
[2023-11-11 13:23] LABS: Anisocytosis Slight; Basophils # (A) 0.1 k/uL (0-0.2); Basophils % (A) 1 %; Eosinophils # (A) 0.1 k/uL (0-0.7); Eosinophils % (A) 1 %; HCT 36.3 % (39.0-53.0); HGB 11.4 gm/dL (13.0-17.5); Hypochromasia Moderate; Lymphocytes % (A) 10 %; MCH 31.7 pg (25.0-35.0); MCHC 31.5 g/dL (31.0-37.0); MCV 100.9 fL (80.0-100.0); Macrocytosis Moderate; Monocytes # (A) 0.6 k/uL (0-1.0); Monocytes % (A) 6 %; Neutrophils # (A) 6.3 k/uL (1.3-7.7); Neutrophils % (A) 61 %; Platelet Count 132 k/uL (150-450); Poikilocytosis Slight; RDW 18.6 % (11.5-15.5); WBC 10.3 k/uL (3.8-10.6)
[2023-11-11 16:47] LABS: Glucose,Whole Blood 192 mg/dL (70-110)
[2023-11-11 20:45] LABS: Glucose,Whole Blood 239 mg/dL (70-110)
[2023-11-11 21:30] LABS: Glucose,Whole Blood 175 mg/dL (70-110)
[2023-11-12 00:27] VITALS: RESP 16
[2023-11-12 04:42] VITALS: TEMP 98.3
[2023-11-12 05:59] LABS: Glucose,Whole Blood 226 mg/dL (70-110)
--- NOTE | 2023-11-12 08:24 | XR ---
EXAMINATION TYPE: XR chest 2V DATE OF EXAM: 11/12/2023 6:27 AM CLINICAL INDICATION:Male, 78 years old with history of post lobectomy; [facility] COMPARISON: Chest radiographs from TECHNIQUE: XR chest 2V Frontal and lateral views of the chest. FINDINGS: Lungs/Pleura: Improved aeration of the left lung. There is small right pleural effusion with consolid ation changes within the left mid and lower lung. Pulmonary vascularity: Unremarkable. Heart/mediastinum: Cardiomediastinal silhouette is unremarkable. Musculoskeletal: No acute osseous pathology. Other findings: None Lines/Tubes: Left thoracotomy tube is present without evidence of pneumothorax. IMPRESSION: 1. Post left lobectomy with thoracotomy tube in place. No evidence for pneumothorax. Improved aerati on of the left lung. 2. Small right pleural effusion.
[2023-11-12] MEDS: [UNRECOGNIZED DRUG - OTHER] TOPICAL SCH (08:30)
--- NOTE | 2023-11-12 10:25 | P.PN ---
Subjective Progress Note Date: 11/12/23 Principal diagnosis: Bilateral lung nodules. Previous medical history of hypertension, hyperlipidemia, PE on Eliquis for anticoagulation, rheumatoid arthritis on chronic prednisone, diabetes, previous tobacco dependence, previous COVID infection. POD #2 bronchoscopy, left video assisted thorascopic surgery with extensive lysis of adhesions, wedge resection of lingula, intercostal nerve block - 3 levels The patient was seen and examined with Dr. Hickman sitting up in recliner on the cardiac stepdown unit in no acute distress. Does complain of mild postsurgical discomfort although not significant enough to take any narcotics, states pain is controlled with Tylenol. Denies shortness of breath. Patient has been ambulatory in the room with assistance. Left pleural chest tube present to waterseal, no airleak present. Patient is currently on room air and in sinus rhythm, able to achieve 1500 mL on his incentive spirometry. No other new concerns. Objective - Vital Signs Vital signs: Vital Signs Temp 98.3 F 11/12/23 03:57 Pulse 100 11/12/23 09:33 Resp 16 11/12/23 09:33 BP 153/76 11/12/23 08:00 Pulse Ox 95 11/12/23 09:24 FiO2 Intake & Output 11/11/23 11/12/23 11/12/23 18:59 06:59 18:59 Intake Total 240 Output Total 800 354 Balance -800 -354 240 Weight 87.5 kg Intake: Oral 240 Output: Chest Tube Drainage 0 4 Chest Tube Left 0 4 Drainage 0 Left Upper Lateral Chest 0 Urine 800 350 Other: Voiding Method Urinal Urinal # Voids 1 1 - Exam CONSTITUTIONAL: Appears comfortable, cooperative, no acute distress RESPIRATORY: Lungs sounds diminished bilaterally. Respirations even, nonlabored. Currently on room air with oxygen saturation 95%. Able to achieve 1500 mL on incentive spirometry. Strong cough. CARDIOVASCULAR: S1, S2 present. Regular rate and rhythm, sinus rhythm on telemetry. Palpable peripheral pulses bilaterally. No edema present. No calf pain or tenderness noted. SCDs present. GASTROINTESTINAL: Abdomen soft, nontender, nondistended. Active bowel sounds present 4 quadrants. Tolerating diet GENITOURINARY: Continues to void clear, yellow urine INTEGUMENTARY: Skin is warm and dry with evidence of good perfusion NEUROLOGIC: Cranial nerves II through XII intact MUSKULOSKELETAL: Able to move all extremities, strength equal bilaterally, gait normal PSYCHIATRIC: Alert and oriented to person place and time, appropriate affect, intact judgment and insight INVASIVE LINES AND TUBES: Left pleural chest tubes present to waterseal, no air leaks present, no drainage overnight, 20 mL in the last 24 hours - Allied health notes Allied health notes reviewed: nursing - Labs CBC & Chem 7: 11/11/23 11:42 11/11/23 11:42 Labs: Abnormal Lab Results - Last 24 Hours (Table) 11/11/23 11/11/23 11/11/23 Range/Units 11:42 11:42 11:57 RBC 3.60 L (4.30-5.90) m/uL Hgb 11.4 L (13.0-17.5) gm/dL Hct 36.3 L (39.0-53.0) % MCV 100.9 H (80.0-100.0) fL RDW 18.6 H (11.5-15.5) % Plt Count 132 L (150-450) k/uL Sodium 133 L (137-145) mmol/L Chloride 108 H (98-107) mmol/L Carbon Dioxide 21 L (22-30) mmol/L BUN 30 H (9-20) mg/dL Creatinine 1.35 H (0.66-1.25) mg/dL Glucose 146 H (74-99) mg/dL POC Glucose (mg/dL) 170 H (70-110) mg/dL Calcium 8.3 L (8.4-10.2) mg/dL 11/11/23 11/11/23 11/11/23 Range/Units 16:45 20:36 21:29 RBC (4.30-5.90) m/uL Hgb (13.0-17.5) gm/dL Hct (39.0-53.0) % MCV (80.0-100.0) fL RDW (11.5-15.5) % Plt Count (150-450) k/uL Sodium (137-145) mmol/L Chloride (98-107) mmol/L Carbon Dioxide (22-30) mmol/L BUN (9-20) mg/dL Creatinine (0.66-1.25) mg/dL Glucose (74-99) mg/dL POC Glucose (mg/dL) 192 H 239 H 175 H (70-110) mg/dL Calcium (8.4-10.2) mg/dL 11/12/23 Range/Units 05:54 RBC (4.30-5.90) m/uL Hgb (13.0-17.5) gm/dL Hct (39.0-53.0) % MCV (80.0-100.0) fL RDW (11.5-15.5) % Plt Count (150-450) k/uL Sodium (137-145) mmol/L Chloride (98-107) mmol/L Carbon Dioxide (22-30) mmol/L BUN (9-20) mg/dL Creatinine (0.66-1.25) mg/dL Glucose (74-99) mg/dL POC Glucose (mg/dL) 226 H (70-110) mg/dL Calcium (8.4-10.2) mg/dL Microbiology - Last 24 Hours (Table) 11/10/23 14:15 Gram Stain - Preliminary Other - Other Tissue Culture - Preliminary 11/10/23 14:15 Acid Fast Bacilli Smear - Preliminary Other - Other 11/10/23 14:10 Acid Fast Bacilli Smear - Preliminary Other - Other - Imaging and Cardiology Chest x-ray: report reviewed, image reviewed Assessment and Plan Assessment: Bilateral lung nodules, status post bronchoscopy, left video assisted thorascopic surgery with extensive lysis of adhesions, wedge resection of lingula, intercostal nerve block - 3 levels History of hypertension Hyperlipidemia PE on Eliquis for anticoagulation Rheumatoid arthritis on chronic prednisone Diabetes Previous tobacco dependence Previous COVID infection. Plan: Pleural chest tube discontinued without incident, will repeat chest x-ray in a few hours Encourage incentive spirometry use Increase activity as tolerated Continue home medications Will restart Eliquis GI/DVT prophylaxis Pain control with current medication regimen Likely will discharge to home this afternoon as long as repeat chest x-ray stable
[2023-11-12 11:17] LABS: Glucose,Whole Blood 204 mg/dL (70-110)
[2023-11-12 12:28] LABS: Anisocytosis Slight; HCT 37.4 % (39.0-53.0); HGB 11.7 gm/dL (13.0-17.5); Hypochromasia Moderate; MCH 31.3 pg (25.0-35.0); MCHC 31.3 g/dL (31.0-37.0); MCV 100.2 fL (80.0-100.0); Macrocytosis Moderate; Mean Platelet Volume 8.5; Platelet Count 145 k/uL (150-450); Poikilocytosis Slight; RBC 3.73 m/uL (4.30-5.90); RDW 18.5 % (11.5-15.5); WBC 10.9 k/uL (3.8-10.6)
[2023-11-12 12:40] LABS: African American GFR (CKD) 55 (>60 ml/min/1.73 sqM); Anion Gap 8 mmol/L; Blood Urea Nitrogen 26 mg/dL (9-20); Calcium 8.5 mg/dL (8.4-10.2); Carbon Dioxide 19 mmol/L (22-30); Chloride 108 mmol/L (98-107); Glucose 163 mg/dL (74-99); Non-African American GFR(CKD) 48 (>60 ml/min/1.73 sqM); Potassium 4.3 mmol/L (3.5-5.1); Sodium 135 mmol/L (137-145)
[2023-11-12 12:45] VITALS: BP 138/71; PULSE 98
--- NOTE | 2023-11-12 12:46 | XR ---
EXAMINATION TYPE: XR chest 2V DATE OF EXAM: 11/12/2023 12:06 PM CLINICAL INDICATION:Male, 78 years old with history of post chest tube removal; COMPARISON: Chest radiographs from 11/12/2023 TECHNIQUE: XR chest 2V Frontal and lateral views of the chest. FINDINGS: Lungs/Pleura: Similar left sided lung airspace opacities. There is no evidence of pleural effusion, f ocal consolidation, or pneumothorax. Pulmonary vascularity: Unremarkable. Heart/mediastinum: Cardiomediastinal silhouette is unremarkable. Musculoskeletal: No acute osseous pathology. Other findings: None Lines/Tubes: Removal of left thoracotomy tube. No pneumothorax definitively visualized. IMPRESSION: Left thoracotomy tube removal no evidence for pneumothorax. Persistent left-sided opacities are not significantly unchanged. Small right pleural effusion.
--- NOTE | 2023-11-12 13:09 | P.DS ---
Providers Date of admission: 11/10/23 10:59 Expected date of discharge: 11/12/23 Attending physician: Fidel Horowitz MD Consults: 11/10/23 16:10 Consult Physician Routine Consulting Provider: Pernell Bell Consult Reason/Comments: post lobectomy Do you want consulting provider notified?: Yes Primary care physician: [facility] Course: FINAL DIAGNOSIS: Bilateral lung nodules History of hypertension Hyperlipidemia PE on Eliquis for anticoagulation Rheumatoid arthritis on chronic prednisone Diabetes Previous tobacco dependence Previous COVID infection. PRINCIPAL PROCEDURE: Bronchoscopy Left video assisted thorascopic surgery with extensive lysis of adhesions, wedge resection of lingula Intercostal nerve block - 3 levels HISTORY OF PRESENT ILLNESS: This is a 78 year-old gentleman with a history of tobacco use, DVT/PE on eliquis, COVID-19 infection, DM, HLD, RA on prednisone, and HTN who presented to see Dr. Horowitz regarding an opinion on bilateral pulmon berry nodules. The patient had a 60 pack year smoking history but quit in 1998. [place] He complained of chronic non productive cough but denied chest pain, hemoptysis or other respiratory issues. Denied any cardiac history. He did have an empyema in 2021 which was managed conservatively with a chest tube only on the left side. He had never had surgery in the chest. He takes prednisone daily for his RA. He was also on eliquis for his hx of PE. He had a CT Chest on 09/11/23 which revealed scattered bilateral cavitary lesions. All of these lesions had an SUV of about ~5. He did undergo robotic assisted biopsy which revealed alveolar and nathalia-bronchial tissue with chronic inflammation and sqamous metaplasia. No cultures were sent, results were inconclusive. Dr. Horowitz recommended left video assisted thoracoscopy with wedge resection of lingular lesion with mediastinal lymph node dissection. The usual perioperative course was discussed in detail with the patient and his family, all risks and benefits were explained, all questions were answered, and consent was obtained to proceed with surgery. The patient was scheduled at the earliest possible date after abstaining from Eliquis for 5 days. HOSPITAL COURSE: The patient was brought to the hospital on 11/10/23, taken to the preoperative area, prepared in the usual fashion, and subsequently taken to the operating room where Dr. Lyoa performed a left VATS with wedge resection of the lingula. Upon completion of surgery the patient was extubated and taken to the recovery room for further monitoring. He was eventually admitted to 3 S. cardiac stepdown unit for further hemodynamic monitoring. There was no airleak in his chest tube on postoperative day 1 and it was placed to waterseal. Repeat chest x-ray the following morning was stable and his chest tube was discontinued without incident. Follow-up chest x-ray was stable, his oxygen was titrated down, he was tolerating oral diet, his pain was controlled, and he was ready to be discharged to home on postoperative day #2. He received written and verbal instruction regarding his medications, activity restrictions, signs and symptoms requiring physician notification, and follow-up appointments. Patient Condition at Discharge: Stable Plan - Discharge Summary Discharge Rx Participant: No New Discharge Prescriptions: Continue Gabapentin 600 mg PO TID #9 tab Apixaban [Eliquis] 5 mg PO BID #60 tab Insulin Lispro [humaLOG Kwikpen] 15 unit SQ TID-W/MEALS Cortrophin Gel (Dose Unknown) 1 dose TOPICAL WEFR atenoloL [Tenormin] 25 mg PO DAILY Tamsulosin [Flomax] 0.4 mg PO DAILY lisinopriL 30 mg PO DAILY Empagliflozin [Jardiance] 25 mg PO QAM Cholecalciferol [Vitamin D3 (25 Mcg = 1000 Iu)] 25 mcg PO QAM Calcium Carbonate [Calcium] 600 mg PO QAM predniSONE 5 mg PO DAILY Semaglutide [Ozempic] 1 mg SQ TU Acetaminophen Tab [Tylenol] 650 mg PO Q6HR PRN tab PRN Reason: Mild Pain Or Fever > 100.5 Furosemide [Lasix] 30 mg PO QAM Atorvastatin [Lipitor] 80 mg PO HS Insulin Degludec [Tresiba Flextouch U-100 Pen] 32 units SQ HS Discharge Medication List Calcium Carbonate [Calcium] 600 mg PO QAM 02/01/22 [History] Cholecalciferol [Vitamin D3 (25 Mcg = 1000 Iu)] 25 mcg PO QAM 02/01/22 [History] Empagliflozin [Jardiance] 25 mg PO QAM 02/01/22 [History] predniSONE 5 mg PO DAILY 05/09/22 [History] Semaglutide [Ozempic] 1 mg SQ TU 07/10/22 [History] Acetaminophen Tab [Tylenol] 650 mg PO Q6HR PRN tab 07/25/22 [Rx] Gabapentin 600 mg PO TID #9 tab 07/25/22 [Rx] Apixaban [Eliquis] 5 mg PO BID #60 tab 07/30/22 [Rx] Atorvastatin [Lipitor] 80 mg PO HS 09/09/23 [History] Cortrophin Gel (Dose Unknown) 1 dose TOPICAL WEFR 09/09/23 [History] Furosemide [Lasix] 30 mg PO QAM 09/09/23 [History] Insulin Degludec [Tresiba Flextouch U-100 Pen] 32 units SQ HS 09/09/23 [History] Insulin Lispro [humaLOG Kwikpen] 15 unit SQ TID-W/MEALS 09/09/23 [History] Tamsulosin [Flomax] 0.4 mg PO DAILY 09/30/23 [History] atenoloL [Tenormin] 25 mg PO DAILY 09/30/23 [History] lisinopriL 30 mg PO DAILY 09/30/23 [History] Follow up Appointment(s)/Referral(s): Karl Pike DO [Primary Care Provider] - As Needed Pernell Bell DO [Doctor of Osteopathic Medicine] - 12/16/23 8:45 am Fidel Horowitz MD [STAFF PHYSICIAN] - 11/26/23 2:00 pm Activity/Diet/Wound Care/Special Instructions: DISCHARGE INSTRUCTIONS: 1. No driving for 2 weeks, or until physician gives their ok. 2. No lifting, pushing, or pulling more than 10 pounds for 2 weeks. The physician will advise of any restriction changes. 3. Continue pain control per as needed orders 4. Continue with incentive spirometry and splinting until otherwise directed by the physician. 5. Leave chest tube dressing for 48 hours. After that, remove all dressings and shower daily. 6. Routine incision care. No powders, lotions, ointments on incisions. 7. Please call surgeon/PATIENT ACCOUNT REPRESENTATIVE for temp greater than 101 F or purulent drainage from incisions. Discharge Disposition: HOME SELF-CARE
[2023-11-12] MEDS ORDERED: APIXABAN 5 MG TAB PO SCH (21:00)
--- NOTE | 2023-11-13 00:43 | PN ---
PROGRESS NOTE DATE OF SERVICE: 11/12/2023 SUBJECTIVE: This is a 78-year-old male who is postop day #2, status post robotically assisted video biopsy of the left lung, and lingula. The patient had multiple lesions on x-rays, including CT scans and PET scans. The lesions were FDG avid. We were concerned about malignancy. The patient had the chest tube removed today. He was seen today in room 383. He is on room air. The patient was likely to be discharged later today, if his post chest tube removal chest x-ray appeared to be without evidence of pneumothorax. The patient appears to be very stable. PHYSICAL EXAMINATION: VITAL SIGNS: Current vital signs include a temperature which is 98.7, heart rate which is 92, respiratory rate 16, blood pressure 138/71, mean 93, and room air saturation 95%. GENERAL: He appears in no acute distress. HEENT: Grossly unremarkable. NECK: Supple. Full range of motion. No adenopathy or thyromegaly. Neck veins are flat. CARDIOVASCULAR: Reveals regular rhythm and rate. S1, S2 normal. No S3, S4, or murmur. LUNGS: Reveal mostly clear breath sounds. Minimal scattered rhonchi. No wheezes or crackles. ABDOMEN: Soft. Bowel sounds are heard. EXTREMITIES: Intact. No cyanosis, clubbing, or edema. SKIN: Without rash. NEUROLOGIC: Brief, but nonfocal. LABORATORY DATA: Labs today include a white count 10.9, hemoglobin 11.7, hematocrit 37.4, and platelet count which is 145,000. Sodium 135, potassium 4.3, chloride 108, CO2 of 19, BUN 26, and creatinine 1.40. Calcium is 8.5. ASSESSMENT: 1. Postoperative day #2, status post robotically-assisted thoracoscopic lung biopsy, left lung, for multiple bilateral cavitary pulmonary nodules. 2. Remote history of tobacco use. 3. History of pulmonary embolism. 4. History of hypertension. 5. History of hyperlipidemia. 6. History of insulin-dependent diabetes mellitus. 7. History of rheumatoid arthritis. PLAN: The patient is on room air. The patient appears relatively stable. The chest tube was removed earlier by the cardiothoracic physician's assistant professor of archaeology. The patient will have a followup chest x-ray. As long as chest x-ray looks good, the patient will likely be discharged home. The patient will follow with me in the office. No additional recommendations are made. Dr. Horowitz who I spoke to after the procedure, thought that the lesions, look more infectious, than inflammatory or neoplastic. We will await the final cytology and pathology. MMODL / IJN: [id number] /
== END 2023-11-12 12:50 | disposition home or self-care (01) | DRG 165 ==
LOC: 2ORMAIN 10:59 → 3SCARD 15:54
PROVIDERS: ADMIT Thoracic Surgery (Cardiothoracic Vascular Surgery); ATTEND Thoracic Surgery (Cardiothoracic Vascular Surgery)
PROC: 07B74ZZ Excision of Thorax Lymphatic, Percutaneous Endoscopic Approach (ICD-10-PCS; 2023-11-10)
PROC: 3E0T3BZ Introduction of Anesthetic Agent into Peripheral Nerves and Plexi, Percutaneous Approach (ICD-10-PCS; 2023-11-10)
PROC: 8E0Y4CZ Robotic Assisted Procedure of Lower Extremity, Percutaneous Endoscopic Approach (ICD-10-PCS; 2023-11-10)
PROC: 0BT Respiratory System, Resection (ICD-10-PCS; principal; 2023-11-10 13:00)
DX: R91.8 Other nonspecific abnormal finding of lung field (principal); Z87.891 Personal history of nicotine dependence; I71.40 Abdominal aortic aneurysm, without rupture, unspecified; M06.9 Rheumatoid arthritis, unspecified; Z86.711 Personal history of pulmonary embolism; E11.42 Type 2 diabetes mellitus with diabetic polyneuropathy; E78.5 Hyperlipidemia, unspecified; I10 Essential (primary) hypertension; Z86.16 Personal history of COVID-19; H91.90 Unspecified hearing loss, unspecified ear; Z79.01 Long term (current) use of anticoagulants; Z79.4 Long term (current) use of insulin; Z79.52 Long term (current) use of systemic steroids; Z79.84 Long term (current) use of oral hypoglycemic drugs; Z79.899 Other long term (current) drug therapy; Z86.718 Personal history of other venous thrombosis and embolism
CPT/HCPCS: 71045; 71046; 80048; 85025; 85027; 87070; 87075; 87102; 87116; 87205; 87206; 88307; 94640; 94760

== ENCOUNTER → 2023-11-20 | Outpatient (CLI) | payer MEDICARE ==
--- NOTE | 2023-11-20 21:25 | US ---
EXAMINATION TYPE: US liver DATE OF EXAM: 11/20/2023 COMPARISON: CT 06/27/2023, 11/20/2023, ultrasound liver 12/03/2022 CLINICAL INDICATION: Male, 78 years old with history of K74.60 CIRRHOSIS OF LIVER; Cirrhosis TECHNIQUE: Multiple sonographic images of the right upper quadrant are obtained. FINDINGS: EXAM MEASUREMENTS: Liver Length: 13.7 cm Gallbladder Wall: Limited, measured at 0.3 cm CBD: Obscured Right Kidney: 9.6 x 5.4 x 5.5 cm SMALL CRAFT OPERATOR NOTES: Limited due to gas. Pancreas: Obscured Liver: *Appears very coarse and heterogeneous. Gallbladder: Appears partially contracted. Wall measurement is limited. Evidence for sonographic Perez's sign: No CBD: Obscured Right Kidney: No hydronephrosis or masses seen. Cortex appears thin. Pancreas is obscured by overlying bowel gas. The liver is diffusely heterogenous and coarse in appear ance. No focal lesion identified within this appearance. Gallbladder is partially contracted without significant wall thickening or stranding fluid. No gallstones identified. Negative sonographic Perez 's sign. Common bile duct is obscured by overlying bowel gas. Cortical thinning of the right kidney. Cortical medullary differentiation is maintained. No solid mass identified. No stones or hydronephros is. IMPRESSION: 1. Similar coarse and heterogenous appearance of the liver consistent with reported history of cirrho sis. No focal lesion identified. 2. Contracted gallbladder without gallstones. 3. Similar appearance the right kidney suggesting chronic medical renal disease.
== END | disposition home or self-care (01) ==
LOC: RADUSWWP 07:12
PROVIDERS: ATTEND Internal Medicine Gastroenterology
DX: K74.60 Unspecified cirrhosis of liver (principal); K82.0 Obstruction of gallbladder
CPT/HCPCS: 76705

== ENCOUNTER → 2023-11-20 | Outpatient (CLI) | payer MEDICARE ==
--- NOTE | 2023-11-20 10:08 | CT ---
EXAMINATION TYPE: CT angio abdomen pelvis CT DLP: 1337.90 mGycm, Automated exposure control for dose reduction was used. DATE OF EXAM: 11/20/2023 8:57 AM COMPARISON: Pet/CT 10/23/2023. . CLINICAL INDICATION:Male, 78 years old with history of I71.40 AAA;, AAA f/u TECHNIQUE: Multiple thin slice sub-millimeter images were obtained after administration of contrast. 3-D reconstructed images and maximum intensity projection images were obtained. CT angio abdomen pel vis CT Contrast: Contrast used:80ml mL of Isovue 370 without and with IV Contrast, Oral contrast used: without Oral Contrast None FINDINGS: CTA Abdomen and pelvis: The abdominal aorta densities aneurysmal dilation of the infrarenal portion m easuring up to 4.5 cm.. Atherosclerotic plaquing is identified within the abdominal aorta. The orig ins of the superior mesenteric artery, renal arteries, inferior mesenteric artery, and celiac axis ar e patent. There is atherosclerotic plaque at the origins of the major vessels of the aorta with 50% s tenosis of the celiac access. There are 2 right renal arteries the inferior renal artery has near occ lusion at its origin with reconstitution further upstream. The more superior renal artery is patent w ith 25-50% stenosis. The superior mesenteric artery demonstrates up to 50% stenosis. No evidence for dissection. LOWER CHEST: No evidence of focal consolidation, pneumothorax or pleural effusion. Multiple masses an d cavitary lesions are seen throughout the lung bases as described on prior 10/23/2023 LIVER: Nodular contour to liver with caudate lobe arterial atrophy changes. GALLBLADDER AND BILE DUCTS: Unremarkable. PANCREAS: Unremarkable. SPLEEN: Unremarkable. ADRENAL GLANDS: Unremarkable. KIDNEYS AND URETERS: Atrophy changes of the kidneys right greater than left. No evidence of hydroneph rosis or renal calculus. The ureters are unremarkable. PELVIS BLADDER: Unremarkable REPRODUCTIVE: Unremarkable. ABDOMEN & PELVIS STOMACH AND BOWEL: No evidence of bowel obstruction. Scattered colonic diverticula. Appendix is sarai l. PERITONEUM: No evidence of pneumoperitoneum or free fluid. VASCULATURE: No evidence of aortic aneurysm. MUSCULOSKELETAL: Moderate disc degeneration changes are present throughout the thoracolumbar spine. LYMPH NODES: No gross evidence for lymphadenopathy. SOFT TISSUE/ABDOMINAL WALL: Unremarkable IMPRESSION 1. Infrarenal abdominal aortic aneurysm measuring up tor 4.5 cm measuring orthogonal to the axis of f low. 2. Atherosclerosis of the origins of the major vessels of the aorta worse with the the inferior right renal artery which appears occluded with reconstitution with chronic changes right kidney inferior r enal pole. 3. Pulmonary nodules within the lungs as seen on 10/22/2023 PET/CT. 4. Scattered colonic diverticulosis.
== END | disposition home or self-care (01) ==
LOC: RADCTMAIN 07:50
PROVIDERS: ATTEND Internal Medicine Interventional Cardiology
DX: I71.43 Infrarenal abdominal aortic aneurysm, without rupture (principal); I70.0 Atherosclerosis of aorta; K57.30 Diverticulosis of large intestine without perforation or abscess without bleeding
CPT/HCPCS: 74174; Q9967

== ENCOUNTER 2023-12-23 06:46 | Day surgery (SDC) | payer MEDICARE ==
[~2023-12-23 06:46] MED LIST changes: -ONDANSETRON 4 MG/2 ML VIAL IVP PRN
[2023-12-23 07:19] LABS: Glucose,Whole Blood 97 mg/dL (70-110)
[2023-12-23 07:21] VITALS: TEMP 97.3
[2023-12-23] MEDS: IV FLUID CONTINUATION 1,000 ML IV ONE (07:21)
[2023-12-23] MEDS: LACTATED RINGERS 1,000 ML IV SCH (07:22)
[2023-12-23] MEDS ORDERED: PROPOFOL 10 MG/ML 20 ML VIAL IV ONE (07:37)
--- NOTE | 2023-12-23 08:04 | P.PCN ---
Date of Procedure: 12/23/23 Procedure(s) Performed: BRIEF HISTORY: Patient is a 78-year-old pleasant white male scheduled for an elective colonoscopy as a part of evaluation by history of colon polyps and an abnormal PET scan that showed abnormal uptake in the right colon PROCEDURE PERFORMED: Colonoscopy with snare polypectomy.. PREOPERATIVE DIAGNOSIS: History of colon polyps and abnormal PET scan. IV sedation per Anesthesia. PROCEDURE: After informed consent was obtained, the patient, was brought into the endoscopy unit. IV sedation was administered by Anesthesia under continuous monitoring. Digital rectal examination was normal. Initially the Olympus CF-160 flexible video colonoscope was then inserted in the rectum, gradually advanced into the cecum without any difficulty. Careful examination was performed as the scope was gradually being withdrawn. Ileocecal valve and the appendiceal orifice were visualized and appeared normal. Prep was excellent. Mucosa of the cecum, ascending colon, transverse colon appeared normal. The descending colon there was a 5 mm polyp that was removed by cold snare polypectomy. Moderate left- sided diverticulosis seen. Rest of the, descending colon, sigmoid colon, and rectum appeared normal. Retroflexion was performed in the rectum and no lesions were seen. The patient tolerated the procedure well. IMPRESSION: 5 mm descending colon polyp status post cold snare polypectomy Scattered sigmoid diverticula RECOMMENDATIONS: Findings of this examination were discussed with the patient as well as his family. He was advised to follow-up with the biopsy results. Continue the high-fiber diet and take fiber supplements on a regular basis..
[2023-12-23 08:31] VITALS: BP 100/55; PULSE 79; RESP 18
== END 2023-12-23 09:05 | disposition home or self-care (01) ==
LOC: ORWHC2ENDO 06:46
PROVIDERS: ATTEND Internal Medicine Gastroenterology
DX: K63.5 Polyp of colon (principal); K57.30 Diverticulosis of large intestine without perforation or abscess without bleeding; Z86.010 Personal history of colon polyps; Z80.0 Family history of malignant neoplasm of digestive organs; I10 Essential (primary) hypertension; E78.5 Hyperlipidemia, unspecified; I71.9 Aortic aneurysm of unspecified site, without rupture; E11.9 Type 2 diabetes mellitus without complications; M06.9 Rheumatoid arthritis, unspecified; Z87.19 Personal history of other diseases of the digestive system; K74.60 Unspecified cirrhosis of liver; Z87.891 Personal history of nicotine dependence; Z88.8 Allergy status to other drugs, medicaments and biological substances; Z79.01 Long term (current) use of anticoagulants; Z79.4 Long term (current) use of insulin; Z79.84 Long term (current) use of oral hypoglycemic drugs; Z79.85 Long-term (current) use of injectable non-insulin antidiabetic drugs; Z79.899 Other long term (current) drug therapy; Z79.52 Long term (current) use of systemic steroids
CPT/HCPCS: 88305; 45385; J2704

== ENCOUNTER 2023-12-24 10:30 | Emergency (ER) | payer MEDICARE ==
[2023-12-24 10:35] VITALS: TEMP 98.3
[2023-12-24 10:57] LABS: Glucose,Whole Blood 140 mg/dL (70-110)
--- NOTE | 2023-12-24 11:09 | ED ---
General Adult HPI - General Chief complaint: Fever Stated complaint: Post-op issue,Vomiting Time Seen by Provider: 12/24/23 10:36 Source: patient, family Mode of arrival: wheelchair Limitations: no limitations - History of Present Illness Initial comments: Dictation was produced using [employer] dictation software. please excuse any grammatical, word or spelling errors. Chief Complaint: 78-year-old male presents emergency department left arm swelling History of Present Illness: Patient 78-year-old male presents to the emergency department with left arm swelling. 4 days ago patient had some wounds that were dressed by his she placed a wound dressing with Coban over the left forearm. Shortly after it started swelling. Yesterday he had a colonoscopy and the swelling continued. Patient has history of arthritis. Denies any pain to the arm. No fever, chills or night sweats. The ROS documented in this emergency department record has been reviewed and confirmed by me. Those systems with pertinent positive or negative responses have been documented in the HPI. All other systems are other negative and/or noncontributory. - Related Data Home Medications Medication Instructions Recorded Confirmed Calcium Carbonate [Calcium] 600 mg PO DAILY 02/01/22 12/24/23 Cholecalciferol [Vitamin D3 (25 25 mcg PO DAILY 02/01/22 12/24/23 Mcg = 1000 Iu)] Empagliflozin [Jardiance] 25 mg PO DAILY 02/01/22 12/24/23 Semaglutide [Ozempic] 1 mg SQ WE 07/10/22 12/24/23 Atorvastatin [Lipitor] 80 mg PO HS 09/09/23 12/24/23 Insulin Degludec [Tresiba 32 units SQ DAILY 09/09/23 12/24/23 Flextouch U-100 Pen] Insulin Lispro [humaLOG Kwikpen] 15 unit SQ TID-W/MEALS 09/09/23 12/24/23 Tamsulosin [Flomax] 0.4 mg PO DAILY 09/30/23 12/24/23 atenoloL [Tenormin] 25 mg PO BID 09/30/23 12/24/23 lisinopriL 30 mg PO DAILY 09/30/23 12/24/23 Cortrophin Gel 80 Unit/Ml 80 unit IM TUFR 12/24/23 12/24/23 Furosemide [Lasix] 40 mg PO DAILY 12/24/23 12/24/23 predniSONE [Deltasone] 20 mg PO DAILY 12/24/23 12/24/23 Previous Rx's Medication Instructions Recorded Acetaminophen Tab [Tylenol] 650 mg PO Q6HR PRN tab 07/25/22 Gabapentin 600 mg PO TID #9 tab 07/25/22 Apixaban [Eliquis] 5 mg PO BID #60 tab 07/30/22 Allergies Allergy/AdvReac Type Severity Reaction Status Date / Time abatacept [From Orencia] Allergy Rash/Hives Verified 12/24/23 11:41 Review of Systems ROS Statement: Those systems with pertinent positive or pertinent negative responses have been documented in the HPI. ROS Other: All systems not noted in ROS Statement are negative. Past Medical History Past Medical History: Diabetes Mellitus, Hearing Disorder / Deafness, Hyperlipidemia, Hypertension, Pulmonary Embolus (PE), Rheumatoid Arthritis (RA) Additional Past Medical History / Comment(s): Per Dr. Hughes H+P CT chest performed on Mar 2023, showed multiple bilat pulmonary nodules. aortic aneurysm, empyema, colitis, very [place], Diverticulosis. History of Any Multi-Drug Resistant Organisms: None Reported Past Surgical History: Hernia Repair Additional Past Surgical History / Comment(s): hemorrhoidectomy, surgeries for sebaceous cysts umbilical hernia repair,colonoscopy, surgery for empyema. Past Anesthesia/Blood Transfusion Reactions: No Reported Reaction Additional Past Anesthesia/Blood Transfusion Reaction / Comment(s): Hx of blood transfusion. No reaction. Past Psychological History: No Psychological Hx Reported Smoking Status: Former smoker - Past Family History Son(s) Family Medical History: Cancer Additional Family Medical History / Comment(s): brain cancer Brother(s) Family Medical History: Cancer Additional Family Medical History / Comment(s): colon cancer Sister(s) Family Medical History: Cancer General Exam - General Exam Comments Initial Comments: PHYSICAL EXAM: General Impression: Alert and oriented x3, not in acute distress HEENT: Normocephalic atraumatic, extra-ocular movements intact, pupils equal and reactive to light bilaterally, mucous membranes moist. Cardiovascular: Heart regular rate and rhythm Chest: Able to complete full sentences, no retractions, no tachypnea Abdomen: abdomen soft, non-tender, non-distended, no organomegaly Musculoskeletal: Pulses present and equal in all extremities, no peripheral edema Motor: no focal deficits noted Neurological: CN II-XII grossly intact, no focal motor or sensory deficits noted Skin: Intact with no visualized rashes Psych: Normal affect and mood Left arm: Intact radial pulse, pitting edema to the distal left forearm. There seems to be an imprint where the dressing was. Dressing was removed. Limitations: no limitations Course Vital Signs 12/24/23 12/24/23 10:32 10:59 Temperature 98.3 F Pulse Rate 106 H 98 Respiratory 20 16 Rate Blood Pressure 183/91 189/88 O2 Sat by Pulse 96 95 Oximetry Medical Decision Making - Medical Decision Making Was pt. sent in by a medical professional or institution (, PA, TURNSTILE COLLECTOR, urgent care, hospital, or skilled nursing...) When possible be specific @ -No Did you speak to anyone other than the patient for history (EMS, parent, family, police, friend...)? What history was obtained from this source @ -yes, at the bedside Did you review nursing and triage notes (agree or disagree)? Why? @ -I reviewed and agree with nursing and triage notes Were old charts reviewed (outside hosp., previous admission, EMS record, old EKG, old radiological studies, urgent care reports/EKG's, skilled nursing records)? Report findings @ -No old charts were reviewed Differential Diagnosis (chest pain, altered mental status, abdominal pain women, abdominal pain men, vaginal bleeding, musculoskeletal, weakness, fever, dyspnea, syncope, headache, dizziness, GI bleed, back pain, seizure, CVA, palpatations, mental health)? @ -DVT, cellulitis, fracture EKG interpreted by me (3pts min.). @ -None done X-rays interpreted by me (1pt min.). @ -None done CT interpreted by me (1pt min.). @ -None done U/S interpreted by me (1pt. min.). @ -Ultrasound the left upper extremity shows no DVT What testing was considered but not performed or refused? (CT, X-rays, U/S, labs)? Why? @ -None What meds were considered but not given or refused? Why? @ -None Was smoking cessation discussed for >3mins.? @ -No Were there social determinants of health that impacted care today? How? (Homelessness, low income, unemployed, alcoholism, drug addiction, transportation, low edu. Level, literacy, decrease access to med. care, senior care, rehab)? @ -No Was there de-escalation of care discussed even if they declined (Discuss DNR or withdrawal of care, Hospice)? DNR status @ -No What co-morbidities impacted this encounter? (DM, HTN, Smoking, COPD, CAD, Cancer, CVA, ARF, Chemo, Hep., AIDS, mental health diagnosis, sleep apnea, morbid obesity)? @ -None Was patient admitted / discharged? Hospital course, mention meds given and route, prescriptions, significant lab abnormalities, going to OR and other pertinent info. @ -78-year-old male with left arm swelling. It appears on physical exam that the swelling was distal to where he had a Coban bandage that was circumferentially wrapped around his forearm. This is likely dependent edema secondary to constriction around the forearm. Bandage was removed. Ultrasound shows no DVT. Laboratory evaluation is unremarkable. Patient discharged told not to wrap the arm with manage at this time to raise his arm above his head. Did you discuss the management of the patient with other professionals (professionals i.e. , PA, TURNSTILE COLLECTOR, lab, RT, psych nurse, social worker delinquency prevention, open hearth door liner, teacher, child support case officer, block and case maker)? Give summary @ -No Was critical care preformed (if so, how long)? @ -No Undiagnosed new problem with uncertain prognosis? @ -No Drug Therapy requiring intensive monitoring for toxicity (Heparin, Nitro, Insulin, Cardizem)? @ -No Were any procedures done? @ -No Diagnosis/symptom? Acute, or Chronic, or Acute on Chronic? Uncomplicated (without systemic symptoms) or Complicated (systemic symptoms)? @ -Arm swelling Side effects of treatment? @ -No Exacerbation, Progression, or Severe Exacerbation? @ -No Poses a threat to life or bodily function? How? (Chest pain, [place], [place], pneumonia, PE, COPD, DKA, ARF, appy, cholecystitis, CVA, Diverticulitis, Homicidal, Suic idal, threat to staff... and all critical care pts) @ -No - Lab Data Result diagrams: 12/24/23 11:02 12/24/23 11:02 Lab Results 12/24/23 12/24/23 12/24/23 Range/Units 10:55 11:02 11:02 WBC 10.6 (3.8-10.6) k/uL RBC 4.20 L (4.30-5.90) m/uL Hgb 13.4 (13.0-17.5) gm/dL Hct 42.1 (39.0-53.0) % MCV 100.2 H (80.0-100.0) fL MCH 31.9 (25.0-35.0) pg MCHC 31.8 (31.0-37.0) g/dL RDW 17.1 H (11.5-15.5) % MPV 8.6 Anisocytosis Slight Macrocytosis Slight Sodium 135 L (137-145) mmol/L Potassium 4.6 (3.5-5.1) mmol/L Chloride 107 (98-107) mmol/L Carbon Dioxide 20 L (22-30) mmol/L Anion Gap 8 mmol/L BUN 20 (9-20) mg/dL Creatinine 1.26 H (0.66-1.25) mg/dL Est GFR (CKD-EPI)AfAm 62 (>60 ml/min/1.73 sqM) Est GFR (CKD-EPI)NonAf 54 (>60 ml/min/1.73 sqM) Glucose 156 H (74-99) mg/dL POC Glucose (mg/dL) 140 H (70-110) mg/dL POC Glu Process Improvement Specialist ID Akshat Alcantara Calcium 9.0 (8.4-10.2) mg/dL Disposition Clinical Impression: Arm swelling Disposition: HOME SELF-CARE Condition: Good Instructions (If sedation given, give patient instructions): Edema (ED) Is patient prescribed a controlled substance at d/c from ED?: No Referrals: Karl Pike DO [Primary Care Provider] - 1-2 days Time of Disposition: 13:29
--- NOTE | 2023-12-24 12:04 | US ---
EXAMINATION TYPE: US venous doppler duplex UE LT DATE OF EXAM: 12/24/2023 COMPARISON: NONE CLINICAL INDICATION: Male, 78 years old with history of arm swelling; left forearm swelling; hx PE; o n eliquis SIDE PERFORMED: Left Left Arm: Negative for DVT IMPRESSION: Grayscale, color doppler, spectral doppler imaging performed of the deep veins of the upper extremiti es. There is normal flow, compressibility and vascular waveforms.
[2023-12-24 12:46] LABS: Anisocytosis Slight; HCT 42.1 % (39.0-53.0); HGB 13.4 gm/dL (13.0-17.5); MCH 31.9 pg (25.0-35.0); MCHC 31.8 g/dL (31.0-37.0); MCV 100.2 fL (80.0-100.0); Macrocytosis Slight; Mean Platelet Volume 8.6; RDW 17.1 % (11.5-15.5); WBC 10.6 k/uL (3.8-10.6)
[2023-12-24 12:52] LABS: African American GFR (CKD) 62 (>60 ml/min/1.73 sqM); Anion Gap 8 mmol/L; Blood Urea Nitrogen 20 mg/dL (9-20); Carbon Dioxide 20 mmol/L (22-30); Chloride 107 mmol/L (98-107); Glucose 156 mg/dL (74-99); Non-African American GFR(CKD) 54 (>60 ml/min/1.73 sqM); Potassium 4.6 mmol/L (3.5-5.1); Sodium 135 mmol/L (137-145)
[2023-12-24 13:23] LABS: Platelet Count 88 k/uL (150-450)
[2023-12-24 13:28] LABS: Band Neutrophils % 1 %; Lymphocytes # (M) 0.95 k/uL (1.0-4.8); Metamyelocytes # (M) 0.11 k/uL (0); Metamyelocytes % 1 %; Monocytes # (M) 0.32 k/uL (0-1.0); Neutrophils % (M) 87 %; Nucleated Red Blood Cells 0 /100 WBC (0-0); Total Cells Counted 200
[2023-12-24 13:58] VITALS: BP 181/91; PULSE 89; RESP 18
== END 2023-12-24 13:58 | disposition home or self-care (01) ==
LOC: EC 10:30
DX: M79.89 Other specified soft tissue disorders (principal); Z88.6 Allergy status to analgesic agent; Z87.891 Personal history of nicotine dependence
CPT/HCPCS: 36415; 80048; 85025; 99284

== ENCOUNTER 2024-03-21 20:40 | Emergency (ER) | payer MEDICARE ==
[2024-03-21 20:53] LABS: Glucose,Whole Blood 73 mg/dL (70-110)
[2024-03-21] MEDS ORDERED: OLANZapine 10 MG VIAL IM PRN (21:07)
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
[2024-03-21 22:07] VITALS: RESP 18
[2024-03-21 23:21] LABS: Appearance,Urine Clear (Clear); Bilirubin,Urine Negative (Negative); Blood,Urine Negative (Negative); Color,Urine Light Yellow; Glucose,Urine (UA) 4+ (Negative); Ketones,Urine Negative (Negative); Leukocyte Esterase,Urine Negative (Negative); Nitrite,Urine Negative (Negative); Protein,Urine 2+ (Negative); RBC,Urine 1 /hpf (0-5); Specific Gravity,Urine 1.016 (1.001-1.035); Squamous Epithelial Cell,Urine 1 /hpf (0-4); Urobilinogen,Urine <2.0 mg/dL (<2.0); WBC,Urine <1 /hpf (0-5)
--- NOTE | 2024-03-21 23:28 | XR ---
EXAMINATION TYPE: XR chest 1V portable DATE OF EXAM: 03/21/2024 COMPARISON: Chest x-ray November 12, 2023 and older studies HISTORY: Altered mental status TECHNIQUE: Single frontal view of the chest is obtained. FINDINGS: There is persistent left lung increased opacity and small amount of right-sided peripheral increased opacity. Persistent silhouetting of the left heart border with atherosclerotic change in t he aortic knob. The osseous structures are intact. IMPRESSION: Left greater than right scattered opacities redemonstrated favoring scarring. No definit toshia new acute pulmonary infiltrate. [facility], , 03/21/2024 11:26 PM
[2024-03-21 23:32] LABS: ALT 38 U/L (4-49); AST 33 U/L (17-59); African American GFR (CKD) 58 (>60 ml/min/1.73 sqM); Albumin 3.4 g/dL (3.5-5.0); Alkaline Phosphatase 53 U/L (38-126); Blood Urea Nitrogen 32 mg/dL (9-20); Calcium 8.9 mg/dL (8.4-10.2); Carbon Dioxide 25 mmol/L (22-30); Chloride 102 mmol/L (98-107); Glucose 151 mg/dL (74-99); Non-African American GFR(CKD) 50 (>60 ml/min/1.73 sqM); Total Bilirubin 1.3 mg/dL (0.2-1.3)
--- NOTE | 2024-03-21 23:33 | CT ---
EXAMINATION TYPE: CT brain wo con DATE OF EXAM: 03/21/2024 HISTORY: In by EMS accompanied by the police. Patient's family contacted EMS after patient refused t o eat x30-36 hours and characterized as a passive attempt at self harm. Patient is combative, uncoop erative at time of arrival. AOx4 with clear speech. Family accompanies patient to initiate petition. Patient denies complaints of pain, states he wishes to be left alone. Soft restraints in place at t joaquin of arrival. Patient verbalizes intent to assault ER staff if restraints weren't restricting move ment. CT DLP: 1094.7 mGycm. Automated Exposure Control for Dose Reduction was Utilized. TECHNIQUE: CT scan of the head is performed without contrast. COMPARISON: CT brain July 18, 2022. FINDINGS: There is no acute intracranial hemorrhage or midline shift identified. There is mild to m oderate diffuse ventricular and sulcal prominence consistent redemonstrated. There is moderate low-a ttenuation in the periventricular white matter redemonstrated. The globes are intact and the visuali zed sinuses are clear. IMPRESSION: No acute intracranial hemorrhage or midline shift. There is mild to moderate diffuse ag e-related cerebral atrophy and moderate chronic small vessel ischemic change redemonstrated. No sign ificant change from prior. [facility], , 03/21/2024 11:31 PM
[2024-03-21 23:34] LABS: Anisocytosis Slight; HCT 37.5 % (39.0-53.0); HGB 12.8 gm/dL (13.0-17.5); MCH 34.7 pg (25.0-35.0); MCV 102.1 fL (80.0-100.0); Macrocytosis Moderate; Mean Platelet Volume 8.5; Platelet Count 110 k/uL (150-450); Poikilocytosis Slight; RBC 3.68 m/uL (4.30-5.90); WBC 6.9 k/uL (3.8-10.6)
[2024-03-22 01:24] LABS: Band Neutrophils % 1 %; Basophils # (M) 0.07 k/uL (0-0.2); Eosinophils # (M) 0.14 k/uL (0-0.7); Lymphocytes # (M) 1.52 k/uL (1.0-4.8); Monocytes # (M) 0.21 k/uL (0-1.0); Neutrophils % (M) 74 %; Nucleated Red Blood Cells 0 /100 WBC (0-0); Total Cells Counted 200
[2024-03-22 01:43] LABS: Potassium 3.9 mmol/L (3.5-5.1)
[2024-03-22 01:48] LABS: Anion Gap 9 mmol/L; Sodium 136 mmol/L (137-145)
[2024-03-22 08:38] VITALS: BP 146/89; PULSE 98; TEMP 98
== END 2024-03-22 08:38 | disposition home or self-care (01) ==
LOC: EC 20:40
CPT/HCPCS: 36415; 70450; 71045; 80053; 81001; 82075; 85025; 87635; 93005; 99283

== ENCOUNTER 2024-04-10 04:42 | Inpatient (IN) | payer MEDICARE ==
--- NOTE | 2024-04-10 04:55 | ED ---
Fall HPI - General Chief Complaint: Fall Stated Complaint: Fall Time Seen by Provider: 04/10/24 04:49 Source: patient, EMS, RN notes reviewed, old records reviewed Mode of arrival: EMS Limitations: no limitations - History of Present Illness Initial Comments: This is a 79-year-old male of a poor historian found down, patient allegedly had a fall MD Complaint: fall -: unknown Fall From: standing Fall Witnessed: no, yes, by living facility staff Place Fall Occurred: home Loss of Consciousness: none Prolonged Down Time?: no Symptoms Prior to Fall: none Severity scale (1-10): 0 Context: tripped/slipped Associated Symptoms: denies - Related Data Home Medications Medication Instructions Recorded Confirmed Cholecalciferol [Vitamin D3 (25 25 mcg PO DAILY 02/01/22 04/10/24 Mcg = 1000 Iu)] Empagliflozin [Jardiance] 25 mg PO DAILY 02/01/22 04/10/24 Atorvastatin [Lipitor] 80 mg PO HS 09/09/23 04/10/24 Insulin Degludec [Tresiba 35 units SQ DAILY 09/09/23 04/10/24 Flextouch U-100 Pen] Insulin Lispro [humaLOG Kwikpen] 15 unit SQ TID-W/MEALS 09/09/23 04/10/24 Tamsulosin [Flomax] 0.4 mg PO DAILY 09/30/23 04/10/24 atenoloL [Tenormin] 25 mg PO BID 09/30/23 04/10/24 lisinopriL 30 mg PO DAILY 09/30/23 04/10/24 Furosemide [Lasix] 40 mg PO DAILY 12/24/23 04/10/24 Calcium Carbonate/Vitamin D3 1 tab PO DAILY 04/10/24 04/10/24 [Calcium 600 mg-Vit D3 10 mcg (400 Unit)] Ipratropium-Albuterol Nebulize 3 ml INHALATION RT-Q6H PRN 04/10/24 04/10/24 [Duoneb 0.5 mg-3 mg/3 ml Soln] Memantine [Namenda] 5 mg PO DAILY 04/10/24 04/10/24 Multivitamins, Thera [Multivitamin 1 tab PO DAILY 04/10/24 04/10/24 (formulary)] Pantoprazole [Protonix] 40 mg PO BID 04/10/24 04/10/24 SILVER sulfADIAZINE Cream 1 applic TOPICAL MOWEFR 04/10/24 04/10/24 [Silvadene 1% Cream] Sennosides [Senokot] 8.6 mg PO BID 04/10/24 04/10/24 Ubidecarenone [Coenzyme Q10] 100 mg PO DAILY 04/10/24 04/10/24 amLODIPine [Norvasc] 5 mg PO DAILY 04/10/24 04/10/24 predniSONE 10 mg PO DAILY 04/10/24 04/10/24 Previous Rx's Medication Instructions Recorded Gabapentin 600 mg PO TID #9 tab 07/25/22 Apixaban [Eliquis] 5 mg PO BID #60 tab 07/30/22 Allergies Allergy/AdvReac Type Severity Reaction Status Date / Time abatacept [From Orencia] Allergy Rash/Hives Verified 04/10/24 09:00 metformin Allergy Unknown Verified 04/10/24 09:00 Review of Systems ROS Statement: Those systems with pertinent positive or pertinent negative responses have been documented in the HPI. ROS Other: All systems not noted in ROS Statement are negative. Past Medical History Past Medical History: Diabetes Mellitus, Hearing Disorder / Deafness, Hyperlipidemia, Hypertension, Pulmonary Embolus (PE), Rheumatoid Arthritis (RA) Additional Past Medical History / Comment(s): Per Dr. Hughes H+P CT chest performed on Mar 2023, showed multiple bilat pulmonary nodules. aortic aneurysm, empyema, colitis, very [place], Diverticulosis. History of Any Multi-Drug Resistant Organisms: None Reported Past Surgical History: Hernia Repair Additional Past Surgical History / Comment(s): hemorrhoidectomy, surgeries for sebaceous cysts umbilical hernia repair,colonoscopy, surgery for empyema. Past Anesthesia/Blood Transfusion Reactions: No Reported Reaction Additional Past Anesthesia/Blood Transfusion Reaction / Comment(s): Hx of blood transfusion. No reaction. Past Psychological History: No Psychological Hx Reported Smoking Status: Former smoker - Past Family History Son(s) Family Medical History: Cancer Additional Family Medical History / Comment(s): brain cancer Brother(s) Family Medical History: Cancer Additional Family Medical History / Comment(s): colon cancer Sister(s) Family Medical History: Cancer General Exam General appearance: alert, in no apparent distress Head exam: Present: atraumatic, normocephalic, normal inspection Eye exam: Present: normal appearance, PERRL, EOMI. Absent: scleral icterus, con junctival injection, periorbital swelling ENT exam: Present: normal exam, mucous membranes moist Neck exam: Present: normal inspection. Absent: tenderness, meningismus, lymphadenopathy Respiratory exam: Present: normal lung sounds bilaterally. Absent: respiratory distress, wheezes, rales, rhonchi, stridor Cardiovascular Exam: Present: regular rate, normal rhythm, normal heart sounds. Absent: systolic murmur, diastolic murmur, rubs, gallop, clicks GI/Abdominal exam: Present: soft, normal bowel sounds. Absent: distended, tenderness, guarding, rebound, rigid Extremities exam: Present: normal inspection, full ROM, normal capillary refill. Absent: tenderness, pedal edema, joint swelling, calf tenderness Back exam: Present: normal inspection Neurological exam: Present: alert, oriented X3, CN II-XII intact Psychiatric exam: Present: normal affect, normal mood Skin exam: Present: warm, dry, intact, normal color. Absent: rash Course Vital Signs 04/10/24 04/10/24 04/10/24 04:43 06:26 07:09 Temperature 100.5 F H 99.6 F Pulse Rate 88 78 75 Respiratory 18 18 16 Rate Blood Pressure 109/61 93/51 65/36 O2 Sat by Pulse 95 98 95 Oximetry 04/10/24 04/10/24 04/10/24 07:23 08:00 09:06 Temperature Pulse Rate 68 64 66 Respiratory 18 18 18 Rate Blood Pressure 63/41 75/41 92/48 O2 Sat by Pulse 88 L 95 97 Oximetry - Reevaluation(s) Reevaluation #1: 04/10/24 05:06 Medical records reviewed Reevaluation #2: 04/10/24 05:06 Symptoms unchanged Reevaluation #3: Patient's blood pressure is continuing to deteriorate here in the ER Reevaluation #4: Was pt. sent in by a medical professional or institution (, PA, COORDINATOR SKILL TRAINING PROGRAM, urgent care, hospital, or fci...) When possible be specific @ -no Did you speak to anyone other than the patient for history (EMS, parent, family, police, friend...)? What history was obtained from this source @ -no Did you review nursing and triage notes (agree or disagree)? Why? @ -agree Are old charts reviewed (outside hosp., previous admission, EMS record, old EKG, old radiological studies, urgent care reports/EKG's, fci records)? Report findings @ -yes Differential Diagnosis (chest pain, altered mental status, abdominal pain women, abdominal pain men, vaginal bleeding, weakness, fever, dyspnea, syncope, headache, dizziness, GI bleed, back pain, seizure, CVA, palpatations, mental health, musculoskeletal)? @ -prior EKG interpreted by me (3pts min.). @ -yes X-rays interpreted by me (1pt min.). @ -yes negative for acute disease CT interpreted by me (1pt min.). @ -no U/S interpreted by me (1pt. min.). @ -no What testing was considered but not performed or refused? (CT, X-rays, U/S, labs)? Why? @ -none What meds were considered but not given or refused? Why? @ -none Did you discuss the management of the patient with other professionals (professionals i.e. , PA, COORDINATOR SK[employer] TRA[employer], lab, RT, psych nurse, social media sr strategy manager, clerical warehouse worker, teacher, training systems officer, immigration case manager)? Give summary @ -no Was smoking cessation discussed for >3mins.? @ -no Was critical care preformed (if so, how long)? @ -yes31 Were there social determinants of health that impacted care today? How? (Home lessness, low income, unemployed, alcoholism, drug addiction, transportation, low edu. Level, literacy, decrease access to med. care, skilled nursing, rehab)? @ -none Was there de-escalation of care discussed even if they declined (Discuss DNR or withdrawal of care, Hospice)? DNR status @ -no What co-morbidities impacted this encounter? (DM, HTN, Smoking, COPD, CAD, Cancer, CVA, ARF, Chemo, Hep., AIDS, mental health diagnosis, sleep apnea, morbid obesity)? @ -none Was patient admitted / discharged? Hospital course, mention meds given and route, prescriptions, significant lab abnormalities, going to OR and other pertinent info. @ - 79 male to the ER for evaluation of fever, weakness low blood pressure non- STEMI, altered mental status, patient will be admitted for further supportive care Discharge Undiagnosed new problem with uncertain prognosis? @ -no Drug Therapy requiring intensive monitoring for toxicity (Heparin, Nitro, Insulin, Cardizem)? @ -no Were any procedures done? @ -no Diagnosis/symptom? @ -non-STEMI fever weakness and low blood pressure Acute, or Chronic, or Acute on Chronic? @ -Acute Uncomplicated (without systemic symptoms) or Complicated (systemic symptoms)? @ -Complicated Side effects of treatment? @ -no Exacerbation, Progression, or Severe Exacerbation? @ -exacerbation Poses a threat to life or bodily function? How? (Chest pain, [place], PR, pneumonia, PE, COPD, DKA, ARF, appy, cholecystitis, CVA, Diverticulitis, Homicidal, Suicidal, threat to staff... and all critical care pts) @ -yes extremes of age Reevaluation #5: Differential Weakness: Hypoglycemia, shock, sepsis, hyponatremia, anemia, infection, PR, ETOH, adverse medicine reaction, overdose, stroke, this is not meant to be an all-inclusive list. Differential Fever: Pneumonia, viral URI, endocarditis, myocarditis, pericarditis, otitis, sinusitis, peritonsillar Abscess, retropharyngeal Abscess, epiglottitis, peritonitis, appendicitis, Janeth cystitis, diverticulitis, hepatitis, colitis, UTI, PID, TOA, pyelonephritis, prostatitis, epididymitis, meningitis, encephalitis, pulmonary embolism, CVA, thyroid storm, pancreatitis, adrenal crisis, cavernous sinus thrombosis, this is not meant to be an all-inclusive list. - Consultations Consultation #1: Spoke with admitting who agrees to admit this patient Medical Decision Making - Medical Decision Making 79 male to the ER for evaluation of fever, weakness low blood pressure non- STEMI, altered mental status, patient will be admitted for further supportive care - Lab Data Result diagrams: 04/11/24 03:14 04/11/24 03:23 Lab Results 04/10/24 04/10/24 04/10/24 Range/Units 04:55 04:55 04:55 WBC 13.9 H (3.8-10.6) k/uL RBC 3.33 L (4.30-5.90) m/uL Hgb 11.2 L (13.0-17.5) gm/dL Hct 34.2 L (39.0-53.0) % MCV 102.8 H (80.0-100.0) fL MCH 33.6 (25.0-35.0) pg MCHC 32.7 (31.0-37.0) g/dL RDW 16.8 H (11.5-15.5) % Plt Count 125 L (150-450) k/uL MPV 8.4 Neutrophils % (Manual) 66 % Band Neuts % (Manual) 9 % Lymphocytes % (Manual) 19 % Monocytes % (Manual) 6 % Neutrophils # (Manual) 10.40 H (1.3-7.7) k/uL Lymphocytes # (Manual) 2.64 (1.0-4.8) k/uL Monocytes # (Manual) 0.83 (0-1.0) k/uL Nucleated RBCs 0 (0-0) /100 WBC Manual Slide Review Performed Hypochromasia Slight Anisocytosis Slight Macrocytosis Moderate PT 11.6 (10.0-12.5) sec INR 1.1 (<1.2) APTT 28.0 (22.0-30.0) sec Sodium 132 L (137-145) mmol/L Potassium 4.6 (3.5-5.1) mmol/L Chloride 106 (98-107) mmol/L Carbon Dioxide 22 (22-30) mmol/L Anion Gap 4 mmol/L BUN 30 H (9-20) mg/dL Creatinine 2.46 H (0.66-1.25) mg/dL Est GFR (CKD-EPI)AfAm 28 (>60 ml/min/1.73 sqM) Est GFR (CKD-EPI)NonAf 24 (>60 ml/min/1.73 sqM) Glucose 148 H (74-99) mg/dL Plasma Lactic Acid Hernán (0.7-2.0) mmol/L Calcium 8.4 (8.4-10.2) mg/dL Phosphorus 3.6 (2.5-4.5) mg/dL Magnesium 1.7 (1.6-2.3) mg/dL Total Bilirubin 1.3 (0.2-1.3) mg/dL AST 22 (17-59) U/L ALT 19 (4-49) U/L Alkaline Phosphatase 50 (38-126) U/L Troponin I (0.000-0.034) ng/mL NT-Pro-B Natriuret Pep 1030 pg/mL Total Protein 5.2 L (6.3-8.2) g/dL Albumin 2.6 L (3.5-5.0) g/dL Urine Color Urine Appearance (Clear) Urine pH (5.0-8.0) Ur Specific [place] (1.001-1.035) Urine Protein (Negative) Urine Glucose (UA) (Negative) Urine Ketones (Negative) Urine Blood (Negative) Urine Nitrite (Negative) Urine Bilirubin (Negative) Urine Urobilinogen (<2.0) mg/dL Ur Leukocyte Esterase (Negative) Urine RBC (0-5) /hpf Urine WBC (0-5) /hpf Hyaline Casts (0-2) /lpf Urine Mucus (None) /hpf Influenza Type A (PCR) (Not Detectd) Influenza Type B (PCR) (Not Detectd) RSV (PCR) (Not Detectd) SARS-CoV-2 (PCR) (Not Detectd) 04/10/24 04/10/24 04/10/24 Range/Units 04:55 04:55 05:06 WBC (3.8-10.6) k/uL RBC (4.30-5.90) m/uL Hgb (13.0-17.5) gm/dL Hct (39.0-53.0) % MCV (80.0-100.0) fL MCH (25.0-35.0) pg MCHC (31.0-37.0) g/dL RDW (11.5-15.5) % Plt Count (150-450) k/uL MPV Neutrophils % (Manual) % Band Neuts % (Manual) % Lymphocytes % (Manual) % Monocytes % (Manual) % Neutrophils # (Manual) (1.3-7.7) k/uL Lymphocytes # (Manual) (1.0-4.8) k/uL Monocytes # (Manual) (0-1.0) k/uL Nucleated RBCs (0-0) /100 WBC Manual Slide Review Hypochromasia Anisocytosis Macrocytosis PT (10.0-12.5) sec INR (<1.2) APTT (22.0-30.0) sec Sodium (137-145) mmol/L Potassium (3.5-5.1) mmol/L Chloride (98-107) mmol/L Carbon Dioxide (22-30) mmol/L Anion Gap mmol/L BUN (9-20) mg/dL Creatinine (0.66-1.25) mg/dL Est GFR (CKD-EPI)AfAm (>60 ml/min/1.73 sqM) Est GFR (CKD-EPI)NonAf (>60 ml/min/1.73 sqM) Glucose (74-99) mg/dL Plasma Lactic Acid Hernán 1.2 (0.7-2.0) mmol/L Calcium (8.4-10.2) mg/dL Phosphorus (2.5-4.5) mg/dL Magnesium (1.6-2.3) mg/dL Total Bilirubin (0.2-1.3) mg/dL AST (17-59) U/L ALT (4-49) U/L Alkaline Phosphatase (38-126) U/L Troponin I 0.522 H* (0.000-0.034) ng/mL NT-Pro-B Natriuret Pep pg/mL Total Protein (6.3-8.2) g/dL Albumin (3.5-5.0) g/dL Urine Color Yellow Urine Appearance Clear (Clear) Urine pH 5.5 (5.0-8.0) Ur Specific [place] 1.017 (1.001-1.035) Urine Protein 1+ H (Negative) Urine Glucose (UA) 4+ H (Negative) Urine Ketones Negative (Negative) Urine Blood Negative (Negative) Urine Nitrite Negative (Negative) Urine Bilirubin Negative (Negative) Urine Urobilinogen <2.0 (<2.0) mg/dL Ur Leukocyte Esterase Negative (Negative) Urine RBC <1 (0-5) /hpf Urine WBC 1 (0-5) /hpf Hyaline Casts 3 H (0-2) /lpf Urine Mucus Rare H (None) /hpf Influenza Type A (PCR) (Not Detectd) Influenza Type B (PCR) (Not Detectd) RSV (PCR) (Not Detectd) SARS-CoV-2 (PCR) (Not Detectd) 04/10/24 Range/Units 05:45 WBC (3.8-10.6) k/uL RBC (4.30-5.90) m/uL Hgb (13.0-17.5) gm/dL Hct (39.0-53.0) % MCV (80.0-100.0) fL MCH (25.0-35.0) pg MCHC (31.0-37.0) g/dL RDW (11.5-15.5) % Plt Count (150-450) k/uL MPV Neutrophils % (Manual) % Band Neuts % (Manual) % Lymphocytes % (Manual) % Monocytes % (Manual) % Neutrophils # (Manual) (1.3-7.7) k/uL Lymphocytes # (Manual) (1.0-4.8) k/uL Monocytes # (Manual) (0-1.0) k/uL Nucleated RBCs (0-0) /100 WBC Manual Slide Review Hypochromasia Anisocytosis Macrocytosis PT (10.0-12.5) sec INR (<1.2) APTT (22.0-30.0) sec Sodium (137-145) mmol/L Potassium (3.5-5.1) mmol/L Chloride (98-107) mmol/L Carbon Dioxide (22-30) mmol/L Anion Gap mmol/L BUN (9-20) mg/dL Creatinine (0.66-1.25) mg/dL Est GFR (CKD-EPI)AfAm (>60 ml/min/1.73 sqM) Est GFR (CKD-EPI)NonAf (>60 ml/min/1.73 sqM) Glucose (74-99) mg/dL Plasma Lactic Acid Hernán (0.7-2.0) mmol/L Calcium (8.4-10.2) mg/dL Phosphorus (2.5-4.5) mg/dL Magnesium (1.6-2.3) mg/dL Total Bilirubin (0.2-1.3) mg/dL AST (17-59) U/L ALT (4-49) U/L Alkaline Phosphatase (38-126) U/L Troponin I (0.000-0.034) ng/mL NT-Pro-B Natriuret Pep pg/mL Total Protein (6.3-8.2) g/dL Albumin (3.5-5.0) g/dL Urine Color Urine Appearance (Clear) Urine pH (5.0-8.0) Ur Specific [place] (1.001-1.035) Urine Protein (Negative) Urine Glucose (UA) (Negative) Urine Ketones (Negative) Urine Blood (Negative) Urine Nitrite (Negative) Urine Bilirubin (Negative) Urine Urobilinogen (<2.0) mg/dL Ur Leukocyte Esterase (Negative) Urine RBC (0-5) /hpf Urine WBC (0-5) /hpf Hyaline Casts (0-2) /lpf Urine Mucus (None) /hpf Influenza Type A (PCR) Not Detected (Not Detectd) Influenza Type B (PCR) Not Detected (Not Detectd) RSV (PCR) Not Detected (Not Detectd) SARS-CoV-2 (PCR) Not Detected (Not Detectd) - EKG Data -: EKG Interpreted by Me (EKG is Sinus 84 NE 169 QRS 138 QTc 426) - Radiology Data Radiology results: report reviewed (CT brain C-spine chest and pelvis x-ray negative for acute disease), image reviewed Critical Care Time Critical Care Time: Yes Total Critical Care Time: 31 Disposition Clinical Impression: Fall, Chest pain, Weakness, Fever, NSTEMI (non-ST elevated myocardial infarction), CHAITANYA (acute kidney injury) Disposition: ADMITTED IP TO THIS HOSP Condition: Fair Is patient prescribed a controlled substance at d/c from ED?: No Time of Disposition: 06:30
[2024-04-10 05:21] LABS: INR 1.1 (<1.2); Prothrombin Time 11.6 sec (10.0-12.5)
[2024-04-10 05:23] LABS: ALT 19 U/L (4-49); AST 22 U/L (17-59); African American GFR (CKD) 28 (>60 ml/min/1.73 sqM); Albumin 2.6 g/dL (3.5-5.0); Alkaline Phosphatase 50 U/L (38-126); Anion Gap 4 mmol/L; Blood Urea Nitrogen 30 mg/dL (9-20); Calcium 8.4 mg/dL (8.4-10.2); Carbon Dioxide 22 mmol/L (22-30); Chloride 106 mmol/L (98-107); Glucose 148 mg/dL (74-99); Magnesium 1.7 mg/dL (1.6-2.3); Non-African American GFR(CKD) 24 (>60 ml/min/1.73 sqM); Phosphorus 3.6 mg/dL (2.5-4.5); Potassium 4.6 mmol/L (3.5-5.1); Sodium 132 mmol/L (137-145); Total Bilirubin 1.3 mg/dL (0.2-1.3); Total Protein 5.2 g/dL (6.3-8.2)
[2024-04-10 05:30] LABS: NT-Pro-B-Type Natriuretic Pept 1030 pg/mL
[2024-04-10] MEDS: IBUPROFEN 800 MG TAB PO STA (05:34)
[2024-04-10] MEDS: ACETAMINOPHEN TAB 500 MG TAB PO STA (05:34)
[2024-04-10] MEDS: SODIUM CHLORIDE 0.9% 1,000 ML IV STA (05:35)
[2024-04-10 05:37] LABS: Anisocytosis Slight; HCT 34.2 % (39.0-53.0); HGB 11.2 gm/dL (13.0-17.5); Hypochromasia Slight; MCH 33.6 pg (25.0-35.0); MCHC 32.7 g/dL (31.0-37.0); MCV 102.8 fL (80.0-100.0); Macrocytosis Moderate; Mean Platelet Volume 8.4; Platelet Count 125 k/uL (150-450); RBC 3.33 m/uL (4.30-5.90); RDW 16.8 % (11.5-15.5); WBC 13.9 k/uL (3.8-10.6)
[2024-04-10 05:51] LABS: Band Neutrophils % 9 %; Lymphocytes # (M) 2.64 k/uL (1.0-4.8); Monocytes # (M) 0.83 k/uL (0-1.0); Neutrophils % (M) 66 %; Nucleated Red Blood Cells 0 /100 WBC (0-0); Total Cells Counted 100
[2024-04-10] MEDS ORDERED: NALOXONE 0.4 MG/ML 1 ML VIAL IV PRN (06:34)
[2024-04-10] MEDS ORDERED: ONDANSETRON 4 MG/2 ML VIAL IVP PRN (06:34)
--- NOTE | 2024-04-10 06:48 | XR ---
EXAMINATION TYPE: XR chest 1V DATE OF EXAM: 04/10/2024 COMPARISON: 11/11/2023 HISTORY: Chest pain TECHNIQUE: Single frontal view of the chest is obtained. FINDINGS: There is a moderate loculated right pleural effusion. The pulmonary vasculature appears congested consistent with pulmonary edema. There is no pneumothorax . The osseous structures are grossly intact IMPRESSION: Acute cardiopulmonary disease is described above. [facility], Workstation: [id number] 04/10/2024 6:46 AM
--- NOTE | 2024-04-10 06:49 | XR ---
Pelvis HISTORY: Fall. COMPARISON: 07/10/2022 TECHNIQUE: Single AP view of the pelvis is obtained. FINDINGS: The hips are normal and symmetric and there is no hip dislocation or fracture The pelvis is intact without fracture or focal intraosseous abnormality. There is no diastasis of the SI joints or pubic symphysis. IMPRESSION: No significant abnormality seen. No evidence of acute trauma. [facility], Workstation: [id number] 04/10/2024 6:47 AM
--- NOTE | 2024-04-10 06:54 | CT ---
EXAMINATION TYPE: CT brain jaxonine wo con DATE OF EXAM: 04/10/2024 COMPARISON: CT brain dated 03/21/2024. CT brain and C-spine dated 07/10/2022 HISTORY: Pain following fall. TECHNIQUE: CT scan of the head and cervical spine are performed without contrast. Findings: Head CT: Ventricles, basal cisterns and sulci over convexities are mildly dilated consistent with mild age-brown ropriate atrophy. There is no mass effect or shift of the midline structures. There is mild diffuse decreased density in the periventricular white matter consistent with chronic i schemic white matter demyelination. There is no acute intra or extra-axial hemorrhage. . Posterior fossa including the brainstem, fourth ventricle and cerebellar pontine angles are grossly normal. The intraorbital contents appear normal and symmetric. There is mild chronic inflammatory change in the left maxillary sinus. The remaining paranasal sinuse s and mastoid air cells are well aerated. Calvarium is intact. CT cervical spine: Craniovertebral junction relationships and prevertebral soft tissues are normal. The cervical vertebral segments are normal in height and alignment and there is no fracture subluxati on. There is mild disc space narrowing and spondylosis at the C3-4, C5-6 and C6-7 levels indicating mild degenerative disc disease. The facet joints are intact. There is mild degeneration of the uncovertebr al joints throughout the cervical spine.. The bony cervical canal is widely patent and there is no bony encroachment of the neural foramina. The paraspinal soft tissues unremarkable. IMPRESSION: 1. Head CT: No acute bleed or mass effect. Mild age-appropriate atrophy. 2. CT cervical spine: No acute trauma. Mild degenerative disc disease. [facility], , 04/10/2024 6:51 AM
[2024-04-10] MEDS: SODIUM CHLORIDE 0.9% 1,000 ML IV SCH (06:56)
[2024-04-10] MEDS: SODIUM CHLORIDE 0.9% 1,000 ML IV ONE ×2 (08:03→09:46)
[2024-04-10] MEDS: NOREPINEPHRINE 4 MG in SODIUM CHLORIDE 0.9% 250 ML IV SCH (09:01)
[2024-04-10] MEDS: PANTOPRAZOLE 40 MG/10 ML VIAL IV SCH (09:05)
[2024-04-10 09:22] LABS: Glucose,Whole Blood 141 mg/dL (70-110)
[2024-04-10 09:26] LABS: Appearance,Urine Clear (Clear); Bilirubin,Urine Negative (Negative); Blood,Urine Negative (Negative); Color,Urine Yellow; Glucose,Urine (UA) 4+ (Negative); Hyaline Casts,Urine 3 /lpf (0-2); Ketones,Urine Negative (Negative); Leukocyte Esterase,Urine Negative (Negative); Mucus,Urine Rare /hpf; Nitrite,Urine Negative (Negative); PH, Urine 5.5 (5.0-8.0); Protein,Urine 1+ (Negative); RBC,Urine <1 /hpf (0-5); Specific Gravity,Urine 1.017 (1.001-1.035); Urobilinogen,Urine <2.0 mg/dL (<2.0); WBC,Urine 1 /hpf (0-5)
--- NOTE | 2024-04-10 10:30 | P.HPIM ---
History of Present Illness This is a pleasant 79 years old male who was transferred from [facility] for multiple falls in 24 hours. Patient currently cannot provide information it was obtained from staff, records and at bedside As per he was recently discharged from [facility] about 1 week earlier for CHF, acute kidney injury and pneumonia. These are per patient. On admission patient was found to be hypotensive, blood pressure 109/61 went down to 63/41, currently 85/40 Patient currently cannot provide information and he is nonverbal. at bedside There is very small pressure ulcers in the lower back. No tachypnea, abdomen looks soft. Urine catheter was placed in the hospital with clear urine. No evidence of suprapubic tenderness. No other rash. He has small abrasion on the right arm. Pupils are equal and reactive to light. Neck looks supple. No leg edema. On admission he had low-grade fever of 100.5 Labs reviewed he has leukocytosis of 13.9, hemoglobin 11.2, low platelet count 125, creatinine 2.4 with baseline 1.3-1.6 Liver enzymes, INR were unremarkable Influenza A and type B, RSV, SARS (coronavirus) are and detected Urinalysis showed glucosuria but no ketonuria Elevated troponin but is chronically elevated proBNP is slightly elevated 1030 CT of the head and neck is negative for acute process in either Pelvic x-ray is negative for acute process or fracture or dislocation EKG shows sinus rhythm at [address]-T changes Patient was received 3 L in the emergency room and started on normal sinus 75 mL/h also on ceftriaxone. division engineer 18 was called and patient was tr ansferred to the ICU and he was started on Levophed On review of the records: Previous CT of the chest showing scattered cavitary lesions and pulmonary nodules with left lower lung suspected mass. He s/p bronchoscopy on 10/04/2023 was negative cytology for malignant cells. Also patient had PET scan on 10/23/23 showing new uptake in the right pleural costophrenic angle and new punctate area within mediastinum with right peribronchial lymph nodes and multiple stable pulmonary nodules and nonspecific changes posterior to the coccyx and left pubic ramus could be infection, injury versus metastasis. Status post wedge resection of the left lung on 10/2023 Review of Systems ROS unobtainable: due to mental status Past Medical History Past Medical History: Diabetes Mellitus, Hearing Disorder / Deafness, Hyperlipidemia, Hypertension, Pulmonary Embolus (PE), Rheumatoid Arthritis (RA) Additional Past Medical History / Comment(s): Per Dr. Hughes H+P CT chest performed on Mar 2023, showed multiple bilat pulmonary nodules. aortic aneurysm, empyema, colitis, very [place], Diverticulosis. History of Any Multi-Drug Resistant Organisms: None Reported Past Surgical History: Hernia Repair Additional Past Surgical History / Comment(s): hemorrhoidectomy, surgeries for sebaceous cysts umbilical hernia repair,colonoscopy, surgery for empyema. Past Anesthesia/Blood Transfusion Reactions: No Reported Reaction Additional Past Anesthesia/Blood Transfusion Reaction / Comment(s): Hx of blood transfusion. No reaction. Past Psychological History: No Psychological Hx Reported Smoking Status: Former smoker - Past Family History Son(s) Family Medical History: Cancer Additional Family Medical History / Comment(s): brain cancer Brother(s) Family Medical History: Cancer Additional Family Medical History / Comment(s): colon cancer Sister(s) Family Medical History: Cancer Medications and Allergies Home Medications Medication Instructions Recorded Confirmed Type Cholecalciferol [Vitamin D3 (25 25 mcg PO DAILY 02/01/22 04/10/24 History Mcg = 1000 Iu)] Empagliflozin [Jardiance] 25 mg PO DAILY 02/01/22 04/10/24 History Gabapentin 600 mg PO TID #9 tab 07/25/22 04/10/24 Rx Apixaban [Eliquis] 5 mg PO BID #60 tab 07/30/22 04/10/24 Rx Atorvastatin [Lipitor] 80 mg PO HS 09/09/23 04/10/24 History Insulin Degludec [Tresiba 35 units SQ DAILY 09/09/23 04/10/24 History Flextouch U-100 Pen] Insulin Lispro [humaLOG Kwikpen] 15 unit SQ TID-W/MEALS 09/09/23 04/10/24 History Tamsulosin [Flomax] 0.4 mg PO DAILY 09/30/23 04/10/24 History atenoloL [Tenormin] 25 mg PO BID 09/30/23 04/10/24 History lisinopriL 30 mg PO DAILY 09/30/23 04/10/24 History Furosemide [Lasix] 40 mg PO DAILY 12/24/23 04/10/24 History Calcium Carbonate/Vitamin D3 1 tab PO DAILY 04/10/24 04/10/24 History [Calcium 600 mg-Vit D3 10 mcg (400 Unit)] Ipratropium-Albuterol Nebulize 3 ml INHALATION RT-Q6H PRN 04/10/24 04/10/24 History [Duoneb 0.5 mg-3 mg/3 ml Soln] Memantine [Namenda] 5 mg PO DAILY 04/10/24 04/10/24 History Multivitamins, Thera [Multivitamin 1 tab PO DAILY 04/10/24 04/10/24 History (formulary)] Pantoprazole [Protonix] 40 mg PO BID 04/10/24 04/10/24 History SILVER sulfADIAZINE Cream 1 applic TOPICAL MOWEFR 04/10/24 04/10/24 History [Silvadene 1% Cream] Sennosides [Senokot] 8.6 mg PO BID 04/10/24 04/10/24 History Ubidecarenone [Coenzyme Q10] 100 mg PO DAILY 04/10/24 04/10/24 History amLODIPine [Norvasc] 5 mg PO DAILY 04/10/24 04/10/24 History predniSONE 10 mg PO DAILY 04/10/24 04/10/24 History Allergies Allergy/AdvReac Type Severity Reaction Status Date / Time abatacept [From [facility]] Allergy Rash/Hives Verified 04/10/24 09:00 metformin Allergy Unknown Verified 04/10/24 09:00 Physical Exam Vitals: Vital Signs Temp Pulse Resp BP Pulse Ox 04/10/24 09:06 66 18 92/48 97 04/10/24 08:00 64 18 75/41 95 04/10/24 07:23 68 18 63/41 88 L 04/10/24 07:09 75 16 65/36 95 04/10/24 06:26 99.6 F 78 18 93/51 98 04/10/24 04:43 100.5 F H 88 18 109/61 95 Intake and Output 04/09/24 04/10/24 04/10/24 22:59 06:59 14:59 Other: Weight 86.183 kg -GENERAL: The patient is sleepy, does not wake to verbal or tactile stimuli. HEENT: Pupils are round and equally reacting to light. EOMI. No scleral icterus. No conjunctival pallor. Normocephalic, atraumatic. No pharyngeal erythema. No thyromegaly. CARDIOVASCULAR: S1 and S2 present. No murmurs, rubs, or gallops. PULMONARY: Chest is clear to auscultation, no wheezing , no crackles. -ABDOMEN: Soft, nontender, nondistended, normoactive bowel sounds. No palpable organomegaly. [place] catheter is in place MUSCULOSKELETAL: No joint swelling or deformity. EXTREMITIES: No cyanosis, clubbing, or pedal edema. -NEUROLOGICAL: Cranial nerves are grossly intact, exam is limited by patient condition. Patient is sleepy and hard to wake up. Neck looks supple SKIN: No rashes. no petechiae. Results CBC & Chem 7: 04/10/24 04:55 04/10/24 04:55 Labs: Abnormal Lab Results - Last 24 Hours (Table) 04/10/24 04/10/24 04/10/24 Range/Units 04:55 04:55 04:55 WBC 13.9 H (3.8-10.6) k/uL RBC 3.33 L (4.30-5.90) m/uL Hgb 11.2 L (13.0-17.5) gm/dL Hct 34.2 L (39.0-53.0) % MCV 102.8 H (80.0-100.0) fL RDW 16.8 H (11.5-15.5) % Plt Count 125 L (150-450) k/uL Neutrophils # (Manual) 10.40 H (1.3-7.7) k/uL Sodium 132 L (137-145) mmol/L BUN 30 H (9-20) mg/dL Creatinine 2.46 H (0.66-1.25) mg/dL Glucose 148 H (74-99) mg/dL Creatine Kinase (55-170) U/L Troponin I 0.522 H* (0.000-0.034) ng/mL Total Protein 5.2 L (6.3-8.2) g/dL Albumin 2.6 L (3.5-5.0) g/dL 04/10/24 Range/Units 07:07 WBC (3.8-10.6) k/uL RBC (4.30-5.90) m/uL Hgb (13.0-17.5) gm/dL Hct (39.0-53.0) % MCV (80.0-100.0) fL RDW (11.5-15.5) % Plt Count (150-450) k/uL Neutrophils # (Manual) (1.3-7.7) k/uL Sodium (137-145) mmol/L BUN (9-20) mg/dL Creatinine (0.66-1.25) mg/dL Glucose (74-99) mg/dL Creatine Kinase 43 L (55-170) U/L Troponin I (0.000-0.034) ng/mL Total Protein (6.3-8.2) g/dL Albumin (3.5-5.0) g/dL Assessment and Plan Assessment: Sepsis with fever and leukocytosis, unknown source of infection. Cannot exclude pneumonia Hypotension requiring pressors suspicious for shock state Right and bilateral pulmonary nodules with abnormal PET scan with increased uptake in the left lower lung and mediastinal lymph node. Status post wedge resection of the left lower lung on 10/2023 Altered mental status most likely secondary to metabolic/toxic encephalopathy. Continue with neurocheck and rule out neurological abnormality Multiple [facility] at [facility] secondary to above Rheumatoid arthritis Diabetes mellitus Hypertension Hyperlipidemia History of PE Plan: Continue with antibiotic, sent for blood culture. I will change antibiotic from ceftriaxone to cefepime to cover for hospital acquired infection. As patient has frequent hospitalization and he was in [facility] Check pro- Calcitonin and CRP Continue with normal saline Pulmonary, cardiology and nephrology team consult Labs and medication were reviewed.. Continue same treatment. Continue with symptomatic treatment. Resume home medication. Monitor lytes and vitals. DVT and GI prophylaxis. Further recommendations depends on the clinical course of the patient DVT prophylaxis: Subcutaneous heparin GI Prophylaxis: Pepcid PT/OT: Pending Prognosis is guarded
--- NOTE | 2024-04-10 10:50 | P.CNPUL ---
History of Present Illness Consult date: 04/10/24 Requesting physician: Karl Pike Reason for consult: dyspnea, hypoxemia, abnormal CXR/CT, other Chief complaint: Status post fall, hypotension. History of present illness: Pulmonary consult dated April 10, 2024. 79-year-old male with a history of diabetes, deafness, hyperlipidemia, hyper tension, pulmonary embolism, rheumatoid arthritis, and multiple bilateral pulmonary nodules, secondary to rheumatoid arthritis. The patient resides at [facility], and apparently fell twice, and was brought into the emergency department, to be evaluated. He [facility]. He is currently on 3 L nasal cannula. He is getting saline at 75 cc an hour. He has received 3 L of fluid bolus, and unfortunately his blood pressure continues to be low at 75/45. The patient is a bit lethargic and sleepy, not a particular good historian. He was not sure why he was in the emergency department. He is not even sure why he was at [facility]. Anyway, the patient is evaluated. The patient will need further monitoring and management, and will be admitted to the intensive care unit. He likely will need some norepinephrine, for his low blood pressure since he has not responded to fluids. In addition, we will have cardiology see him given the fact that there is some mild EKG changes, as well as an elevated troponin. He may be a patient with a non-ST segment elevation myocardial infarction. Current labs include a white count 13.9, hemoglobin 9.2, macro 34.2, and a platelet count of 125,000. Sodium 132, potassium 4.6, chlorides 106, CO2 22, BUN 30, creatinine 2.46. Troponin was 0.522. N-terminal proBNP was 1030. Albumin was 2.6. He tested negative for influenza, RSV, and coronavirus. Chest x-ray showed no acute cardiopulmonary disease. CT scan of the brain, cervical spine, and x-rays of the pelvis, are all negative. The patient was placed on cefepime by the primary service. A procalcitonin level is pending. Review of Systems REVIEW OF SYSTEMS: CONSTITUTIONAL:, Weakness, fall. NEUROLOGIC: [ Negative.] HEENT: [ Negative.] CARDIAC: Hypotension. PULMONARY: [Negative.] GI: [Negative.] : [Negative.] RHEUMATOLOGIC: [ Negative.] IMMUNOLOGIC: [ Negative.] ENDOCRINE: [Negative. ] DERMATOLOGIC: [Negative.] Past Medical History Past Medical History: Diabetes Mellitus, Hearing Disorder / Deafness, Hyperlipidemia, Hypertension, Pulmonary Embolus (PE), Rheumatoid Arthritis (RA) Additional Past Medical History / Comment(s): Per Dr. Hughes H+P CT chest performed on Mar 2023, showed multiple bilat pulmonary nodules. aortic aneurysm, empyema, colitis, very [place], Diverticulosis. History of Any Multi-Drug Resistant Organisms: None Reported Past Surgical History: Hernia Repair Additional Past Surgical History / Comment(s): hemorrhoidectomy, surgeries for sebaceous cysts umbilical hernia repair,colonoscopy, surgery for empyema. Past Anesthesia/Blood Transfusion Reactions: No Reported Reaction Additional Past Anesthesia/Blood Transfusion Reaction / Comment(s): Hx of blood transfusion. No reaction. Past Psychological History: No Psychological Hx Reported Smoking Status: Former smoker - Past Family History Son(s) Family Medical History: Cancer Additional Family Medical History / Comment(s): brain cancer Brother(s) Family Medical History: Cancer Additional Family Medical History / Comment(s): colon cancer Sister(s) Family Medical History: Cancer Medications and Allergies Home Medications Medication Instructions Recorded Confirmed Type Cholecalciferol [Vitamin D3 (25 25 mcg PO DAILY 02/01/22 04/10/24 History Mcg = 1000 Iu)] Empagliflozin [Jardiance] 25 mg PO DAILY 02/01/22 04/10/24 History Gabapentin 600 mg PO TID #9 tab 07/25/22 04/10/24 Rx Apixaban [Eliquis] 5 mg PO BID #60 tab 07/30/22 04/10/24 Rx Atorvastatin [Lipitor] 80 mg PO HS 09/09/23 04/10/24 History Insulin Degludec [Tresiba 35 units SQ DAILY 09/09/23 04/10/24 History Flextouch U-100 Pen] Insulin Lispro [humaLOG Kwikpen] 15 unit SQ TID-W/MEALS 09/09/23 04/10/24 History Tamsulosin [Flomax] 0.4 mg PO DAILY 09/30/23 04/10/24 History atenoloL [Tenormin] 25 mg PO BID 09/30/23 04/10/24 History lisinopriL 30 mg PO DAILY 09/30/23 04/10/24 History Furosemide [Lasix] 40 mg PO DAILY 12/24/23 04/10/24 History Calcium Carbonate/Vitamin D3 1 tab PO DAILY 04/10/24 04/10/24 History [Calcium 600 mg-Vit D3 10 mcg (400 Unit)] Ipratropium-Albuterol Nebulize 3 ml INHALATION RT-Q6H PRN 04/10/24 04/10/24 History [Duoneb 0.5 mg-3 mg/3 ml Soln] Memantine [Namenda] 5 mg PO DAILY 04/10/24 04/10/24 History Multivitamins, Thera [Multivitamin 1 tab PO DAILY 04/10/24 04/10/24 History (formulary)] Pantoprazole [Protonix] 40 mg PO BID 04/10/24 04/10/24 History SILVER sulfADIAZINE Cream 1 applic TOPICAL MOWEFR 04/10/24 04/10/24 History [Silvadene 1% Cream] Sennosides [Senokot] 8.6 mg PO BID 04/10/24 04/10/24 History Ubidecarenone [Coenzyme Q10] 100 mg PO DAILY 04/10/24 04/10/24 History amLODIPine [Norvasc] 5 mg PO DAILY 04/10/24 04/10/24 History predniSONE 10 mg PO DAILY 04/10/24 04/10/24 History Allergies Allergy/AdvReac Type Severity Reaction Status Date / Time [facility]pt [[facility] Allergy Rash/Hives Verified 04/10/24 09:00 metformin Allergy Unknown Verified 04/10/24 09:00 Physical Exam Osteopathic Statement: *. No significant issues noted on an osteopathic structural exam other than those noted in the History and Physical/Consult. Vitals: Vital Signs Temp Pulse Resp BP Pulse Ox 04/10/24 10:00 63 14 100/53 97 04/10/24 09:45 68 5 L 85/40 93 L 04/10/24 09:30 97.7 F 66 14 85/49 93 L 04/10/24 09:06 66 18 92/48 97 04/10/24 08:00 64 18 75/41 95 04/10/24 07:23 68 18 63/41 88 L 04/10/24 07:09 75 16 65/36 95 04/10/24 06:26 99.6 F 78 18 93/51 98 04/10/24 04:43 100.5 F H 88 18 109/61 95 Intake and Output 04/09/24 04/10/24 04/10/24 22:59 06:59 14:59 Intake Total 86.766 Output Total 800 Balance -713.234 Intake: Intake, IV Titration 86.766 Amount Norepinephrine 4 mg In 11.766 Sodium Chloride 0.9% 250 ml @ 0.03 MCG/KG/MIN 9. 851 mls/hr IV .Q24H DAVID Rx#:[id number] Sodium Chloride 0.9% 1, 75 000 ml @ 75 mls/hr IV . [id number] DAVID Rx#:[id number] Output: Urine 800 Uretheral ([place]) 500 Other: Weight 86.183 kg No acute distress, oriented 3. The patient is a bit lethargic. Currently, he is on 3 L. HEENT examination is grossly unremarkable. Mucous membranes are moist. No oral lesions. Neck supple. Full range of motion. No adenopathy thyromegaly or neck vein distention. Cardiovascular examination reveals regular rhythm rate. S1-S2 normal. No S3 or S4. No discernible murmur noted. Lungs reveal clear breath sounds. Breath sounds are equal bilaterally. No adventitious lung sounds including wheezes rhonchi or crackles. Abdomen soft bowel sounds are heard. No masses or tenderness. Extremities are intact. No cyanosis clubbing or edema. Skin is without rash or lesion. Neurologic examination is brief but nonfocal. Results - Laboratory Findings CBC and BMP: 04/10/24 04:55 04/10/24 04:55 PT/INR, D-dimer PT 11.6 sec (10.0-12.5) 04/10/24 04:55 INR 1.1 (<1.2) 04/10/24 04:55 Abnormal lab findings: Abnormal Labs 04/10/24 04/10/24 04/10/24 04:55 04:55 04:55 WBC 13.9 H RBC 3.33 L Hgb 11.2 L Hct 34.2 L MCV 102.8 H RDW 16.8 H Plt Count 125 L Neutrophils # (Manual) 10.40 H Sodium 132 L BUN 30 H Creatinine 2.46 H Glucose 148 H POC Glucose (mg/dL) Creatine Kinase Troponin I 0.522 H* Total Protein 5.2 L Albumin 2.6 L Urine Protein Urine Glucose (UA) Hyaline Casts Urine Mucus 04/10/24 04/10/24 04/10/24 05:06 07:07 09:21 WBC RBC Hgb Hct MCV RDW Plt Count Neutrophils # (Manual) Sodium BUN Creatinine Glucose POC Glucose (mg/dL) 141 H Creatine Kinase 43 L Troponin I Total Protein Albumin Urine Protein 1+ H Urine Glucose (UA) 4+ H Hyaline Casts 3 H Urine Mucus Rare H - Diagnostic Findings Chest x-ray: image reviewed Assessment and Plan Assessment: Status post fall, with hypotension, of unclear etiology. Rule out non-ST se gment elevation myocardial infarction, versus occult infection/sepsis. History of hypertension. History of hyperlipidemia. History of diabetes mellitus. Chronic kidney disease. History of pulmonary embolism. History of rheumatoid arthritis. Multiple bilateral pulmonary nodules, consistent with rheumatoid pulmonary nodules. History of diverticular disease. Plan: Plan dated April 10, 2024. The patient was seen in the emergency department, room 16. The patient will be transferred to the intensive care unit, for further monitoring and management. The patient will be placed on norepinephrine, to maintain a mean arterial pressure of 65. The patient already received 3 L of fluid, and his blood pressure was still low. The patient is currently on 3 L of oxygen. Will ask cardiology to see him to rule out a non-ST segment elevation myocardial infarction. All x-rays are thus far negative. We will continue to follow make recommendations along the way. I saw the patient in the clinic for bilateral pulmonary nodules, which were thought to be metastatic deposits, but after robotic bronchoscopy, and video-assisted thoracoscopic biopsy, the lesions showed caseating granulomas, with negative special stains, consistent with rheumatoid pulmonary nodules. Time with Patient: Greater than 30
[2024-04-10] MEDS: CEFEPIME 2 GM in SODIUM CHLORIDE 0.9% 100 ML IVPB SCH (11:53)
[2024-04-10] MEDS: HEPARIN SODIUM,PORCINE 5,000 UNIT/ML 1 ML VIAL SQ SCH (11:53)
[2024-04-10 11:59] LABS: Glucose,Whole Blood 134 mg/dL (70-110)
--- NOTE | 2024-04-10 12:32 | P.NPCON ---
History of Present Illness - Reason for Consult Consult date: 04/10/24 acute renal failure - Chief Complaint Fall - History of Present Illness This is a 79-year-old male of a poor historian found down, patient allegedly had a fall. Confused on exam. Per and daughter at bedside was recently treated for infection and nearly required dialysis but began to recover. He has been at [facility] and had fall when bending over in chair and hit head on table. He is mildly confused today but pleasant. Transferred from ED to ICU for pressors due to hypotension. General: alert, in no apparent distress Head exam: atraumatic, normocephalic, normal inspection Respiratory exam: normal lung sounds bilaterally. Absent: respiratory distress, wheezes, rales, rhonchi, stridor Cardiovascular Exam: regular rate, normal rhythm, normal heart sounds. GI/Abdominal exam: soft, normal bowel sounds. Extremities exam: no edema Neurological exam: alert, oriented X 1-2 Review of Systems ROS unobtainable: due to mental status Constitutional: Reports as per HPI Past Medical History Past Medical History: Diabetes Mellitus, Hearing Disorder / Deafness, Hyperlipidemia, Hypertension, Pulmonary Embolus (PE), Rheumatoid Arthritis (RA) Additional Past Medical History / Comment(s): Per Dr. Hughes H+P CT chest performed on Mar 2023, showed multiple bilat pulmonary nodules. aortic aneurysm, empyema, colitis, very [place], Diverticulosis. History of Any Multi-Drug Resistant Organisms: None Reported Past Surgical History: Hernia Repair Additional Past Surgical History / Comment(s): hemorrhoidectomy, surgeries for sebaceous cysts umbilical hernia repair,colonoscopy, surgery for empyema. Past Anesthesia/Blood Transfusion Reactions: No Reported Reaction Additional Past Anesthesia/Blood Transfusion Reaction / Comment(s): Hx of blood transfusion. No reaction. Past Psychological History: No Psychological Hx Reported Smoking Status: Former smoker - Past Family History Son(s) Family Medical History: Cancer Additional Family Medical History / Comment(s): brain cancer Brother(s) Family Medical History: Cancer Additional Family Medical History / Comment(s): colon cancer Sister(s) Family Medical History: Cancer Medications and Allergies Home Medications Medication Instructions Recorded Confirmed Type Cholecalciferol [Vitamin D3 (25 25 mcg PO DAILY 02/01/22 04/10/24 History Mcg = 1000 Iu)] Empagliflozin [Jardiance] 25 mg PO DAILY 02/01/22 04/10/24 History Gabapentin 600 mg PO TID #9 tab 07/25/22 04/10/24 Rx Apixaban [Eliquis] 5 mg PO BID #60 tab 07/30/22 04/10/24 Rx Atorvastatin [Lipitor] 80 mg PO HS 09/09/23 04/10/24 History Insulin Degludec [Tresiba 35 units SQ DAILY 09/09/23 04/10/24 History Flextouch U-100 Pen] Insulin Lispro [humaLOG Kwikpen] 15 unit SQ TID-W/MEALS 09/09/23 04/10/24 History Tamsulosin [Flomax] 0.4 mg PO DAILY 09/30/23 04/10/24 History atenoloL [Tenormin] 25 mg PO BID 09/30/23 04/10/24 History lisinopriL 30 mg PO DAILY 09/30/23 04/10/24 History Furosemide [Lasix] 40 mg PO DAILY 12/24/23 04/10/24 History Calcium Carbonate/Vitamin D3 1 tab PO DAILY 04/10/24 04/10/24 History [Calcium 600 mg-Vit D3 10 mcg (400 Unit)] Ipratropium-Albuterol Nebulize 3 ml INHALATION RT-Q6H PRN 04/10/24 04/10/24 History [Duoneb 0.5 mg-3 mg/3 ml Soln] Memantine [Namenda] 5 mg PO DAILY 04/10/24 04/10/24 History Multivitamins, Thera [Multivitamin 1 tab PO DAILY 04/10/24 04/10/24 History (formulary)] Pantoprazole [Protonix] 40 mg PO BID 04/10/24 04/10/24 History SILVER sulfADIAZINE Cream 1 applic TOPICAL MOWEFR 04/10/24 04/10/24 History [Silvadene 1% Cream] Sennosides [Senokot] 8.6 mg PO BID 04/10/24 04/10/24 History Ubidecarenone [Coenzyme Q10] 100 mg PO DAILY 04/10/24 04/10/24 History amLODIPine [Norvasc] 5 mg PO DAILY 04/10/24 04/10/24 History predniSONE 10 mg PO DAILY 04/10/24 04/10/24 History Allergies Allergy/AdvReac Type Severity Reaction Status Date / Time abatacept [From [facility]] Allergy Rash/Hives Verified 04/10/24 09:00 metformin Allergy Unknown Verified 04/10/24 09:00 Physical Exam Vitals: Vital Signs Temp Pulse Resp BP Pulse Ox 04/10/24 08:00 64 18 75/41 95 04/10/24 07:23 68 18 63/41 88 L 04/10/24 07:09 75 16 65/36 95 04/10/24 06:26 99.6 F 78 18 93/51 98 04/10/24 04:43 100.5 F H 88 18 109/61 95 Intake and Output 04/09/24 04/10/24 04/10/24 22:59 06:59 14:59 Other: Weight 86.183 kg Results - Lab Results Most recent lab results Calcium 8.4 mg/dL (8.4-10.2) 04/10/24 04:55 Phosphorus 3.6 mg/dL (2.5-4.5) 04/10/24 04:55 Magnesium 1.7 mg/dL (1.6-2.3) 04/10/24 04:55 04/10/24 04:55 04/10/24 04:55 Assessment and Plan Assessment: 1. CHAITANYA due to ATN from hypotension/shock. Presented creatinine 2.4. 2. Shock possibly septic 3. CKD Stage 3a. Baseline creatinine 1.2-1.4 mg/dL 4. Mild hyponatremia with sodium 132 5. Fall 6. HTN with CKD 7. Type 2 Diabetes Plan Check UA, CPK, renal US BP support with IVF and pressors Complete septic work-up Supportive care for now, no indications for HD
--- NOTE | 2024-04-10 15:38 | CA ---
Transthoracic Echo Report Name: Guero Fernandez Age: 79 Gender: M : 1945 Exam Date: 04/10/2024 12:12 Exam Location: [facility] Ht (in): 70 Wt (lb): 190 Ordering Physician: Tito Robles MD ([email or web address]) Attending/Referring Phys: [employer] Counselor Katie Felton RDCS Procedure CPT: Indications: nstemi Cardiac Hx: Technical Quality: Technically difficult study Contrast 1: Definity Total Dose (mL): 2 Contrast 2: Total Dose (mL): MEASUREMENTS (Male / Female) Normal Values 2D ECHO LV Diastolic Diameter PLAX 4.6 cm 4.2 - 5.9 / 3.9 - 5.3 cm LV Systolic Diameter PLAX 3.1 cm IVS Diastolic Thickness 1.5 cm 0.6 - 1.0 / 0.6 - 0.9 cm LVPW Diastolic Thickness 1.6 cm 0.6 - 1.0 / 0.6 - 0.9 cm LV Relative Wall Thickness 0.7 LVOT Diameter 2.3 cm LA Volume 68.2 cm??? 18 - 58 / 22 - 52 cm??? LA Volume Index 32.8 cm???/m??? 16 - 28 cm???/m??? Ascending Aorta Diameter 3.7 cm DOPPLER AV Peak Velocity 165.1 cm/s AV Peak Gradient 10.9 mmHg AV Mean Velocity 107.1 cm/s AV Mean Gradient 5.3 mmHg AV Velocity Time Integral 37.5 cm LVOT Peak Velocity 114.9 cm/s LVOT Peak Gradient 5.3 mmHg LVOT Velocity Time Integral 26.3 cm LVOT Stroke Volume 113.4 cm??? LVOT Stroke Volume Index 55.5 ml/m??? LVOT Cardiac Index 3327.3 cm???/min???m??? AV Area Cont Eq vti 3.0 cm??? AV Area Cont Eq pk 3.0 cm??? MV Area PHT 3.3 cm??? Mitral E Point Velocity 60.0 cm/s Mitral A Point Velocity 79.6 cm/s Mitral E to A Ratio 0.8 MV Deceleration Time 227.9 ms PV Peak Velocity 87.5 cm/s PV Peak Gradient 3.1 mmHg FINDINGS Left Ventricle Left ventricular ejection fraction is estimated at 55-60 %. Moderately increased septal wall thickness. Left ventricular cavity size normal. No obvious regional wall motion abnormalities. Right Ventricle Normal right ventricular size and function. Unable to estimate the right ventricular systolic pressure. Right Atrium Right atrium not well visualized. Left Atrium Mildly increased left atrial volume. Mildly increased left atrial area. Mitral Valve Mitral valve thickened. No evidence for mitral valve prolapse. No mitral stenosis. Trace mitral regurgitation. Aortic Valve Trileaflet aortic valve. Aortic valve sclerosis. No aortic stenosis. Trace aortic regurgitation. Tricuspid Valve Structurally normal tricuspid valve. No tricuspid stenosis. Trace tricuspid regurgitation. Pulmonic Valve Structurally normal pulmonic valve. No pulmonic stenosis. Mild pulmonic regurgitation. Pericardium No pericardial effusion. Prominent epicardial fat. Aorta Normal size aortic root and proximal ascending aorta. CONCLUSIONS LVEF 55 to 60% Moderate concentric LVH No obvious regional wall motion abnormality Mild LA dilatation No significant valve dysfunction No pericardial effusion Previewed by: Dr Tito Roblse (Electronically Signed) Final Date: 10 April 2024 15:37
[2024-04-10] MEDS ORDERED: DEXTROSE 50% SYRINGE 50 ML IVP PRN ×2 (17:05)
--- NOTE | 2024-04-10 17:38 | P.CRDCN ---
History of Present Illness Consult date: 04/10/24 History of present illness: HISTORY OF PRESENTING ILLNESS 79-year-old with PMH of hypertension, type 2 diabetes, dyslipidemia, rheumatoid arthritis with rheumatic lung disease, resident of a assisted. Patient presented to the hospital because of falling twice at the facility. On admission he was noticed to be hypotensive. For this patient received 2 to 3 L of fluid. There was concerns of possible sepsis. Currently he is being treated for sepsis and is getting worked up for infectious disease etiology. Cardiology was consulted for the reason of elevated troponins. Troponin was elevated 0.52, repeat 0.3. NT-proBNP elevated at 1000, creatinine at 2.4. Platelets 125. CXR shows chronic scarring but no significant acute pulmonary congestion. REVIEW OF SYSTEMS 14 point review of system is negative except what is mentioned above in HPI. PHYSICAL EXAMINATION Vital signs reviewed. Head: Normocephalic. Eyes: Sclerae nonicteric. Neck: Brisk carotid upstroke, no jugular venous distention. Lungs: Mild crackles audible in bilateral lung kemp Heart: Regular rate and rhythm, S1-S2, no S3, no murmur or rub. Abdomen: Soft nontender, mild tenderness in right upper quadrant. Positive bowel sounds. Extremities: No edema, intact distal pulses. Neuro: Alert, oritented, no focal deficits. Detailed neuro exam was not performed. ASSESSMENT Sepsis, source unknown at present Fall due to hypotension from above Elevated troponin due to poor renal clearance in setting of CHAITANYA CHAITANYA on CKD Right bundle branch block History of pulm embolism Infrarenal aortic aneurysm 4.5 cm PAD with high-grade left renal artery stenosis Anemia with thrombocytopenia Rheumatoid arthritis with rheumatic lung disease Type 2 diabetes, hypertension Dyslipidemia Obesity PLAN Less likely acute coronary syndrome. ECG shows sinus rhythm with right bundle branch block with no significant ST changes concerning of acute ischemia. Resume Eliquis. Will do 2.5 mg twice daily because of low platelets and low kidney function. Obtain updated echocardiogram Infectious workup pending supportive care as per the ICU team and the primary team. Tito Robles MD, FACC, RPVI Thank you for allowing [facility] to participate in this patient's care. Feel free to reach out in case of any followup questions. Past Medical History Past Medical History: Diabetes Mellitus, Hearing Disorder / Deafness, Hyperlipidemia, Hypertension, Pulmonary Embolus (PE), Rheumatoid Arthritis (RA) Additional Past Medical History / Comment(s): Per Dr. Bell H+P CT chest performed on Mar 2023, showed multiple bilat pulmonary nodules. aortic aneurysm, empyema, colitis, very [place], Diverticulosis. History of Any Multi-Drug Resistant Organisms: None Reported Past Surgical History: Hernia Repair Additional Past Surgical History / Comment(s): hemorrhoidectomy, surgeries for sebaceous cysts umbilical hernia repair,colonoscopy, surgery for empyema. lt lung wedge resection Past Anesthesia/Blood Transfusion Reactions: No Reported Reaction Additional Past Anesthesia/Blood Transfusion Reaction / Comment(s): Hx of blood transfusion. No reaction. Past Psychological History: No Psychological Hx Reported Additional Psychological History / Comment(s): Tobacco smoker stopping in his 30s. No significant alcohol use.None of the animals have been ill, no other family members have been ill. Patient's has only had a cold. 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 No International travel. Was in the [employer] without international travel. Tobacco smoker stopping in his 30s. No significant alcohol use. Smoking Status: Former smoker Past Alcohol Use History: None Reported Additional Past Alcohol Use History / Comment(s): smoked age [age] 1ppd Past Drug Use History: None Reported - Past Family History Son(s) Family Medical History: Cancer Additional Family Medical History / Comment(s): brain cancer Brother(s) Family Medical History: Cancer Additional Family Medical History / Comment(s): colon cancer Sister(s) Family Medical History: Cancer Medications and Allergies Home Medications Medication Instructions Recorded Confirmed Type Cholecalciferol [Vitamin D3 (25 25 mcg PO DAILY 02/01/22 04/10/24 History Mcg = 1000 Iu)] Empagliflozin [Jardiance] 25 mg PO DAILY 02/01/22 04/10/24 History Gabapentin 600 mg PO TID #9 tab 07/25/22 04/10/24 Rx Apixaban [Eliquis] 5 mg PO BID #60 tab 07/30/22 04/10/24 Rx Atorvastatin [Lipitor] 80 mg PO HS 09/09/23 04/10/24 History Insulin Degludec [Tresiba 35 units SQ DAILY 09/09/23 04/10/24 History Flextouch U-100 Pen] Insulin Lispro [humaLOG Kwikpen] 15 unit SQ TID-W/MEALS 09/09/23 04/10/24 History Tamsulosin [Flomax] 0.4 mg PO DAILY 09/30/23 04/10/24 History atenoloL [Tenormin] 25 mg PO BID 09/30/23 04/10/24 History lisinopriL 30 mg PO DAILY 09/30/23 04/10/24 History Furosemide [Lasix] 40 mg PO DAILY 12/24/23 04/10/24 History Calcium Carbonate/Vitamin D3 1 tab PO DAILY 04/10/24 04/10/24 History [Calcium 600 mg-Vit D3 10 mcg (400 Unit)] Ipratropium-Albuterol Nebulize 3 ml INHALATION RT-Q6H PRN 04/10/24 04/10/24 History [Duoneb 0.5 mg-3 mg/3 ml Soln] Memantine [Namenda] 5 mg PO DAILY 04/10/24 04/10/24 History Multivitamins, Thera [Multivitamin 1 tab PO DAILY 04/10/24 04/10/24 History (formulary)] Pantoprazole [Protonix] 40 mg PO BID 04/10/24 04/10/24 History SILVER sulfADIAZINE Cream 1 applic TOPICAL MOWEFR 04/10/24 04/10/24 History [Silvadene 1% Cream] Sennosides [Senokot] 8.6 mg PO BID 04/10/24 04/10/24 History Ubidecarenone [Coenzyme Q10] 100 mg PO DAILY 04/10/24 04/10/24 History amLODIPine [Norvasc] 5 mg PO DAILY 04/10/24 04/10/24 History predniSONE 10 mg PO DAILY 04/10/24 04/10/24 History Allergies Allergy/AdvReac Type Severity Reaction Status Date / Time [facility] Allergy Rash/Hives Verified 04/10/24 09:00 metformin Allergy Unknown Verified 04/10/24 09:00 Physical Exam Vitals: Vital Signs Temp Pulse Resp BP Pulse Ox 04/10/24 17:00 60 14 103/51 99 04/10/24 16:45 62 18 97/57 100 04/10/24 16:30 62 14 101/59 100 04/10/24 16:15 64 16 117/57 100 04/10/24 16:00 67 14 110/53 98 04/10/24 15:45 62 13 106/51 98 04/10/24 15:30 61 14 102/49 98 04/10/24 15:15 64 21 103/48 98 04/10/24 15:00 64 14 112/48 99 04/10/24 14:45 63 16 109/47 97 04/10/24 14:30 68 18 108/50 93 L 04/10/24 14:15 68 16 103/55 94 L 04/10/24 14:00 64 14 119/54 98 04/10/24 13:45 70 16 104/56 95 04/10/24 13:30 60 16 104/57 99 04/10/24 13:15 62 15 103/58 98 04/10/24 13:00 97.7 F 59 L 15 98/53 98 04/10/24 12:45 61 20 89/55 95 04/10/24 12:30 58 L 16 93/44 04/10/24 12:15 61 14 98/53 98 04/10/24 12:00 62 14 90/44 91 L 04/10/24 11:45 62 19 108/45 97 04/10/24 11:30 62 14 81/39 92 L 04/10/24 11:15 61 18 94/47 96 04/10/24 11:00 63 14 101/47 96 04/10/24 10:45 66 14 92/48 95 04/10/24 10:30 66 16 96/52 94 L 04/10/24 10:15 65 14 80/43 97 04/10/24 10:00 63 14 100/53 97 04/10/24 09:45 68 5 L 85/40 93 L 04/10/24 09:30 97.7 F 66 14 85/49 93 L 04/10/24 09:06 66 18 92/48 97 04/10/24 08:00 64 18 75/41 95 04/10/24 07:23 68 18 63/41 88 L 04/10/24 07:09 75 16 65/36 95 04/10/24 06:26 99.6 F 78 18 93/51 98 04/10/24 04:43 100.5 F H 88 18 109/61 95 Intake and Output 04/10/24 04/10/24 04/10/24 06:59 14:59 22:59 Intake Total 695.367 225 Output Total 1045 535 Balance -349.633 -310 Intake: Intake, IV Titration 575.367 225 Amount Cefepime 2 gm In Sodium 100 Chloride 0.9% 100 ml @ 25 mls/hr IVPB Q8H [facility] Rx#: [id number] Norepinephrine 4 mg In 100.367 Sodium Chloride 0.9% 250 ml @ 0.03 MCG/KG/MIN 9. 851 mls/hr IV .Q24H [facility] Rx#:[id number] Sodium Chloride 0.9% 1, 375 225 000 ml @ 75 mls/hr IV . [id number] [facility] Rx#:[id number] Oral 120 Output: Urine 1045 535 Uretheral ([place]) 500 Other: Voiding Method Indwelling Catheter Indwelling Catheter Weight 86.183 kg Results 04/10/24 04:55 04/10/24 04:55 Cardiac Enzymes 04/10/24 04/10/24 04/10/24 Range/Units 04:55 04:55 08:43 AST 22 (17-59) U/L Troponin I 0.522 H* 0.380 H* (0.000-0.034) ng/mL 04/10/24 Range/Units 12:33 AST (17-59) U/L Troponin I 0.306 H* (0.000-0.034) ng/mL Coagulation 04/10/24 Range/Units 04:55 PT 11.6 (10.0-12.5) sec APTT 28.0 (22.0-30.0) sec CBC 04/10/24 Range/Units 04:55 WBC 13.9 H (3.8-10.6) k/uL RBC 3.33 L (4.30-5.90) m/uL Hgb 11.2 L (13.0-17.5) gm/dL Hct 34.2 L (39.0-53.0) % Plt Count 125 L (150-450) k/uL Comprehensive Metabolic Panel 04/10/24 Range/Units 04:55 Sodium 132 L (137-145) mmol/L Potassium 4.6 (3.5-5.1) mmol/L Chloride 106 (98-107) mmol/L Carbon Dioxide 22 (22-30) mmol/L BUN 30 H (9-20) mg/dL Creatinine 2.46 H (0.66-1.25) mg/dL Glucose 148 H (74-99) mg/dL Calcium 8.4 (8.4-10.2) mg/dL AST 22 (17-59) U/L ALT 19 (4-49) U/L Alkaline Phosphatase 50 (38-126) U/L Total Protein 5.2 L (6.3-8.2) g/dL Albumin 2.6 L (3.5-5.0) g/dL Current Medications Generic Name Dose Route Start Last Admin Trade Name Freq PRN Reason Stop Dose Admin Apixaban 2.5 mg 04/10/24 21:00 Apixaban 2.5 Mg Tablet PO BID [facility] Protocol Dextrose/Water 25 ml 04/10/24 17:05 Dextrose 50% Syringe 50 Ml IVP PER PROTOCOL PRN Hypoglycemia Protocol Dextrose/Water 50 ml 04/10/24 17:05 Dextrose 50% Syringe 50 Ml IVP PER PROTOCOL PRN Hypoglycemia Protocol Famotidine 10 mg 04/10/24 21:00 Famotidine 20 Mg Tab PO Q12HR [facility]ID Sodium Chloride 1,000 mls @ 75 mls/hr 04/10/24 06:45 04/10/24 06:56 Saline 0.9% IV 75 mls/hr .[id number] [facility] Administration Norepinephrine Bitartrate 4 mg 254 mls @ 9.851 mls/hr 04/10/24 08:45 04/10/24 14:53 / Sodium Chloride IV 0.04 mcg/kg/min .Q24H [facility] 13.134 mls/hr Titration Protocol 0.03 MCG/KG/MIN Cefepime HCl 2 gm/ Sodium 100 mls @ 25 mls/hr 04/10/24 11:00 04/10/24 11:53 Chloride IVPB 25 mls/hr Q8H [facility] Administration Protocol Insulin Aspart 0 unit 04/10/24 17:30 Insulin Aspart (Novolog) 100 Unit/Ml Vial SQ ACHS DAVID Protocol Morphine Sulfate 4 mg 04/10/24 06:34 Morphine Sulfate 4 Mg/Ml Syringe IV Q4HR PRN Severe Pain (Scale 7 to 10) Naloxone HCl 0.2 mg 04/10/24 06:34 Naloxone 0.4 Mg/Ml 1 Ml Vial IV Q2M PRN Opioid Reversal Ondansetron HCl 4 mg 04/10/24 06:34 Ondansetron 4 Mg/2 Ml Vial IVP Q8HR PRN Nausea And Vomiting Pantoprazole Sodium 40 mg 04/10/24 09:00 04/10/24 09:05 Pantoprazole 40 Mg/10 Ml Vial IV 40 mg DAILY DAVID Administration Intake and Output 04/10/24 04/10/24 04/10/24 06:59 14:59 22:59 Intake Total 695.367 225 Output Total 1045 535 Balance -349.633 -310 Intake: Intake, IV Titration 575.367 225 Amount Cefepime 2 gm In Sodium 100 Chloride 0.9% 100 ml @ 25 mls/hr IVPB Q8H [facility] Rx#: [id number] Norepinephrine 4 mg In 100.367 Sodium Chloride 0.9% 250 ml @ 0.03 MCG/KG/MIN 9. 851 mls/hr IV .Q24H [facility] Rx#:[id number] Sodium Chloride 0.9% 1, 375 225 000 ml @ 75 mls/hr IV . [id number] [facility] Rx#:[id number] Oral 120 Output: Urine 1045 535 Uretheral ([place]) 500 Other: Voiding Method Indwelling Catheter Indwelling Catheter Weight 86.183 kg 04/10/24 04:55 04/10/24 04:55
[2024-04-10 17:53] LABS: Glucose,Whole Blood 193 mg/dL (70-110)
[2024-04-10] MEDS: INSULIN ASPART (NovoLOG) 100 UNIT/ML VIAL SQ SCH (18:12)
[2024-04-10 20:54] LABS: Glucose,Whole Blood 232 mg/dL (70-110)
[2024-04-10] MEDS ORDERED: FAMOTIDINE 20 MG/2 ML VIAL IV SCH (21:00)
[2024-04-10] MEDS: FAMOTIDINE 20 MG TAB PO SCH (21:05)
[2024-04-10] MEDS: APIXABAN 2.5 MG TABLET PO SCH (21:06)
[2024-04-10] MEDS: ACETAMINOPHEN TAB 325 MG TAB PO PRN (23:46)
[2024-04-11 04:04] LABS: ALT 16 U/L (4-49); AST 19 U/L (17-59); African American GFR (CKD) 30 (>60 ml/min/1.73 sqM); Albumin 2.1 g/dL (3.5-5.0); Alkaline Phosphatase 53 U/L (38-126); Anion Gap 6 mmol/L; Blood Urea Nitrogen 31 mg/dL (9-20); Calcium 7.6 mg/dL (8.4-10.2); Carbon Dioxide 17 mmol/L (22-30); Chloride 114 mmol/L (98-107); Glucose 150 mg/dL (74-99); Magnesium 1.7 mg/dL (1.6-2.3); Non-African American GFR(CKD) 26 (>60 ml/min/1.73 sqM); Phosphorus 4.2 mg/dL (2.5-4.5); Potassium 4.5 mmol/L (3.5-5.1); Sodium 137 mmol/L (137-145); Total Bilirubin 0.6 mg/dL (0.2-1.3); Total Protein 4.6 g/dL (6.3-8.2)
[2024-04-11 04:26] LABS: Anisocytosis Slight; HCT 28.9 % (39.0-53.0); HGB 9.8 gm/dL (13.0-17.5); MCH 34.5 pg (25.0-35.0); MCHC 33.8 g/dL (31.0-37.0); MCV 102.1 fL (80.0-100.0); Macrocytosis Moderate; Mean Platelet Volume 9.1; Poikilocytosis Slight; RBC 2.83 m/uL (4.30-5.90); RDW 17.5 % (11.5-15.5); WBC 9.2 k/uL (3.8-10.6)
[2024-04-11 05:35] LABS: Lymphocytes # (M) 0.46 k/uL (1.0-4.8); Monocytes # (M) 0.37 k/uL (0-1.0); Neutrophils # (M) 8.37 k/uL (1.3-7.7); Neutrophils % (M) 91 %; Nucleated Red Blood Cells 0 /100 WBC (0-0); Total Cells Counted 100
[2024-04-11 05:37] LABS: Platelet Count 85 k/uL (150-450)
[2024-04-11 06:00] LABS: Glucose,Whole Blood 170 mg/dL (70-110)
--- NOTE | 2024-04-11 07:42 | P.PN ---
Subjective This is a pleasant 79 years old male who was transferred from [facility] for multiple falls in 24 hours. Patient currently cannot provide information it was obtained from staff, records and at bedside As per he was recently discharged from [facility] about 1 week earlier for CHF, acute kidney injury and pneumonia. These are per patient. On admission patient was found to be hypotensive, blood pressure 109/61 went down to 63/41, currently 85/40 Patient currently cannot provide information and he is nonverbal. at bedside There is very small pressure ulcers in the lower back. No tachypnea, abdomen lo oks soft. Urine catheter was placed in the hospital with clear urine. No evidence of suprapubic tenderness. No other rash. He has small abrasion on the right arm. Pupils are equal and reactive to light. Neck looks supple. No leg edema. On admission he had low-grade fever of 100.5 Labs reviewed he has leukocytosis of 13.9, hemoglobin 11.2, low platelet count 125, creatinine 2.4 with baseline 1.3-1.6 Liver enzymes, INR were unremarkable Influenza A and type B, RSV, SARS (coronavirus) are and detected Urinalysis showed glucosuria but no ketonuria Elevated troponin but is chronically elevated proBNP is slightly elevated 1030 CT of the head and neck is negative for acute process in either Pelvic x-ray is negative for acute process or fracture or dislocation EKG shows sinus rhythm at [address]-T changes Patient was received 3 L in the emergency room and started on normal sinus 75 mL/h also on ceftriaxone. 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 He s/p bronchoscopy on 10/04/2023 was negative cytology for malignant cells. Also patient had PET scan on 10/23/23 showing new uptake in the right pleural costophrenic angle and new punctate area within mediastinum with right peribronchial lymph nodes and multiple stable pulmonary nodules and nonspecific changes posterior to the coccyx and left pubic ramus could be infection, injury versus metastasis. Status post wedge resection of the left lung on 10/2023 Patient is more awake today, sitting in bed, trying to eat his breakfast, at bedside Look patient looks pleasant, slightly agitated and anxious, he follows command. He looks calm and relaxed. He denies significant tachypnea however he still has mild heavy breathing with no cough or chest pain Abdomen soft with no symptoms Valiente catheter in place Levophed was off since the night before Getting IV fluid normal saline at 75 mL/h 85. WBC normal 9.2, hemoglobin slightly low at 9.8. Creatinine slightly lower at 2.3. It was 2.4 yesterday Creatinine slightly low, has thrombocytopenia at 85 And remains on cefepime. Pro- Calcitonin was elevated 0.61 Review of systems CONSTITUTIONAL: No fever, no malaise, no fatigue. HEENT: No recent visual problems or hearing problems. Denied any sore throat. . NEUROLOGICAL: No headaches, no weakness, no numbness. HEMATOLOGICAL: Denies any bleeding or petechiae. GENITOURINARY: Denies any burning micturition, frequency, or urgency. MUSCULOSKELETAL/RHEUMATOLOGICAL: Denies any joint pain, swelling, or any muscle pain. ENDOCRINE: Denies any polyuria or polydipsia. Active Medications Generic Name Dose Route Start Last Admin Trade Name Julioq PRN Reason Stop Dose Admin Acetaminophen 650 mg 04/10/24 23:39 04/10/24 23:46 Acetaminophen Tab 325 Mg Tab PO 650 mg Q6HR PRN Administration Fever Apixaban 2.5 mg 04/10/24 21:00 04/10/24 21:06 Apixaban 2.5 Mg Tablet PO 2.5 mg BID DAVID Administration Protocol Dextrose/Water 25 ml 04/10/24 17:05 Dextrose 50% Syringe 50 Ml IVP PER PROTOCOL PRN Hypoglycemia Protocol Dextrose/Water 50 ml 04/10/24 17:05 Dextrose 50% Syringe 50 Ml IVP PER PROTOCOL PRN Hypoglycemia Protocol Famotidine 10 mg 04/10/24 21:00 04/10/24 21:05 Famotidine 20 Mg Tab PO 10 mg Q12HR DAVID Administration Sodium Chloride 1,000 mls @ 75 mls/hr 04/10/24 06:45 04/10/24 21:18 Saline 0.9% IV 75 mls/hr .[id number] ADVID Administration Norepinephrine Bitartrate 4 mg 254 mls @ 9.851 mls/hr 04/10/24 08:45 04/10/24 21:38 / Sodium Chloride IV 0 mcg/kg/min .Q24H DAVID 0 mls/hr Titration Protocol 0.03 MCG/KG/MIN Cefepime HCl 2 gm/ Sodium 100 mls @ 25 mls/hr 04/10/24 11:00 04/11/24 02:59 Chloride IVPB 25 mls/hr Q8H DAVID Administration Protocol Insulin Aspart 0 unit 04/10/24 17:30 04/11/24 06:38 Insulin Aspart (Novolog) 100 Unit/Ml Vial SQ 2 unit ACHS DAVID Administration Protocol Morphine Sulfate 4 mg 04/10/24 06:34 Morphine Sulfate 4 Mg/Ml Syringe IV Q4HR PRN Severe Pain (Scale 7 to 10) Naloxone HCl 0.2 mg 04/10/24 06:34 Naloxone 0.4 Mg/Ml 1 Ml Vial IV Q2M PRN Opioid Reversal Ondansetron HCl 4 mg 04/10/24 06:34 Ondansetron 4 Mg/2 Ml Vial IVP Q8HR PRN Nausea And Vomiting Pantoprazole Sodium 40 mg 04/10/24 09:00 04/10/24 09:05 Pantoprazole 40 Mg/10 Ml Vial IV 40 mg DAILY DAVID Administration Objective - Vital Signs Vital signs: Vital Signs Temp 99.3 F 04/11/24 04:00 Pulse 100 04/11/24 07:00 Resp 27 H 04/11/24 07:00 BP 132/84 04/11/24 07:00 Pulse Ox 93 L 04/11/24 07:00 FiO2 Intake & Output 04/10/24 04/11/24 04/11/24 18:59 06:59 18:59 Intake Total 8904.841 6512.850 75 Output Total 1655 1055 150 Balance -498.698 65.850 -75 Weight 96.5 kg Intake: Intake, IV Titration 886.344 6582.850 75 Amount Cefepime 2 gm In Sodium 100 200 Chloride 0.9% 100 ml @ 25 mls/hr IVPB Q8H DAVID Rx#: [id number] Norepinephrine 4 mg In 141.302 20.850 Sodium Chloride 0.9% 250 ml @ 0.03 MCG/KG/MIN 9. 851 mls/hr IV .Q24H DAVID Rx#:[id number] Sodium Chloride 0.9% 1, 675 900 75 000 ml @ 75 mls/hr IV . [id number] DAVID Rx#:[id number] Oral 240 Output: Urine 1655 1055 150 Uretheral (Valiente) 500 Other: Voiding Method Indwelling Catheter Indwelling Catheter - Exam -GENERAL: The patient is alert and alert, oriented partially to place time and person, still mildly confused, slightly anxious and agitated, follows commands, not in any acute distress. Well developed, well nourished. HEENT: Pupils are round and equally reacting to light. EOMI. No scleral icterus. No conjunctival pallor. Normocephalic, atraumatic. No pharyngeal erythema. No thyromegaly. CARDIOVASCULAR: S1 and S2 present. No murmurs, rubs, or gallops. PULMONARY: Chest is clear to auscultation, no wheezing , no crackles. ABDOMEN: Soft, nontender, nondistended, normoactive bowel sounds. No palpable organomegaly. MUSCULOSKELETAL: No joint swelling or deformity. EXTREMITIES: No cyanosis, clubbing, or pedal edema. NEUROLOGICAL: Gross neurological examination did not reveal any focal deficits. SKIN: No rashes. no petechiae. - Labs CBC & Chem 7: 04/11/24 03:14 04/11/24 03:23 Labs: Abnormal Lab Results - Last 24 Hours (Table) 04/10/24 04/10/24 04/10/24 Range/Units 05:06 07:07 08:43 RBC (4.30-5.90) m/uL Hgb (13.0-17.5) gm/dL Hct (39.0-53.0) % MCV (80.0-100.0) fL RDW (11.5-15.5) % Plt Count (150-450) k/uL Neutrophils # (Manual) (1.3-7.7) k/uL Lymphocytes # (Manual) (1.0-4.8) k/uL Chloride (98-107) mmol/L Carbon Dioxide (22-30) mmol/L BUN (9-20) mg/dL Creatinine (0.66-1.25) mg/dL Glucose (74-99) mg/dL POC Glucose (mg/dL) (70-110) mg/dL Calcium (8.4-10.2) mg/dL Creatine Kinase 43 L (55-170) U/L Troponin I 0.380 H* (0.000-0.034) ng/mL Total Protein (6.3-8.2) g/dL Albumin (3.5-5.0) g/dL Procalcitonin (0.02-0.50) ng/mL Urine Protein 1+ H (Negative) Urine Glucose (UA) 4+ H (Negative) Hyaline Casts 3 H (0-2) /lpf Urine Mucus Rare H (None) /hpf 04/10/24 04/10/24 04/10/24 Range/Units 08:43 09:21 11:55 RBC (4.30-5.90) m/uL Hgb (13.0-17.5) gm/dL Hct (39.0-53.0) % MCV (80.0-100.0) fL RDW (11.5-15.5) % Plt Count (150-450) k/uL Neutrophils # (Manual) (1.3-7.7) k/uL Lymphocytes # (Manual) (1.0-4.8) k/uL Chloride (98-107) mmol/L Carbon Dioxide (22-30) mmol/L BUN (9-20) mg/dL Creatinine (0.66-1.25) mg/dL Glucose (74-99) mg/dL POC Glucose (mg/dL) 141 H 134 H (70-110) mg/dL Calcium (8.4-10.2) mg/dL Creatine Kinase (55-170) U/L Troponin I (0.000-0.034) ng/mL Total Protein (6.3-8.2) g/dL Albumin (3.5-5.0) g/dL Procalcitonin 0.61 H (0.02-0.50) ng/mL Urine Protein (Negative) Urine Glucose (UA) (Negative) Hyaline Casts (0-2) /lpf Urine Mucus (None) /hpf 04/10/24 04/10/24 04/10/24 Range/Units 12:33 17:51 20:52 RBC (4.30-5.90) m/uL Hgb (13.0-17.5) gm/dL Hct (39.0-53.0) % MCV (80.0-100.0) fL RDW (11.5-15.5) % Plt Count (150-450) k/uL Neutrophils # (Manual) (1.3-7.7) k/uL Lymphocytes # (Manual) (1.0-4.8) k/uL Chloride (98-107) mmol/L Carbon Dioxide (22-30) mmol/L BUN (9-20) mg/dL Creatinine (0.66-1.25) mg/dL Glucose (74-99) mg/dL POC Glucose (mg/dL) 193 H 232 H (70-110) mg/dL Calcium (8.4-10.2) mg/dL Creatine Kinase (55-170) U/L Troponin I 0.306 H* (0.000-0.034) ng/mL Total Protein (6.3-8.2) g/dL Albumin (3.5-5.0) g/dL Procalcitonin (0.02-0.50) ng/mL Urine Protein (Negative) Urine Glucose (UA) (Negative) Hyaline Casts (0-2) /lpf Urine Mucus (None) /hpf 04/11/24 04/11/24 04/11/24 Range/Units 03:14 03:23 05:59 RBC 2.83 L (4.30-5.90) m/uL Hgb 9.8 L (13.0-17.5) gm/dL Hct 28.9 L (39.0-53.0) % MCV 102.1 H (80.0-100.0) fL RDW 17.5 H (11.5-15.5) % Plt Count 85 L (150-450) k/uL Neutrophils # (Manual) 8.37 H (1.3-7.7) k/uL Lymphocytes # (Manual) 0.46 L (1.0-4.8) k/uL Chloride 114 H (98-107) mmol/L Carbon Dioxide 17 L (22-30) mmol/L BUN 31 H (9-20) mg/dL Creatinine 2.32 H (0.66-1.25) mg/dL Glucose 150 H (74-99) mg/dL POC Glucose (mg/dL) 170 H (70-110) mg/dL Calcium 7.6 L (8.4-10.2) mg/dL Creatine Kinase (55-170) U/L Troponin I (0.000-0.034) ng/mL Total Protein 4.6 L (6.3-8.2) g/dL Albumin 2.1 L (3.5-5.0) g/dL Procalcitonin (0.02-0.50) ng/mL Urine Protein (Negative) Urine Glucose (UA) (Negative) Hyaline Casts (0-2) /lpf Urine Mucus (None) /hpf Assessment and Plan Assessment: -Sepsis with fever and leukocytosis, possibly pneumonia -Hypotension requiring pressors suspicious for shock state. Currently improved -Right and bilateral pulmonary nodules with abnormal PET scan with increased uptake in the left lower lung and mediastinal lymph node. Status post wedge resection of the left lower lung on 10/2023. 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 Continue with neurocheck and rule out neurological abnormality -[facility] secondary to above -Rheumatoid arthritis -Diabetes mellitus -Hypertension -Hyperlipidemia -History of PE Plan: Continue with cefepime to cover for hospital acquired infection. As patient has frequent hospitalization and he was in prison Check pro- Calcitonin and CRP are reviewed Continue with normal saline. Patient currently off further pressors Pulmonary, cardiology and nephrology team consult Labs and medication were reviewed.. Continue same treatment. Continue with symptomatic treatment. Resume home medication. Monitor lytes and vitals. DVT and GI prophylaxis. Further recommendations depends on the clinical course of the patient DVT prophylaxis: Subcutaneous heparin GI Prophylaxis: Pepcid PT/OT: Pending Prognosis is guarded
[2024-04-11] MEDS: QUEtiapine 25 MG TAB PO SCH (09:10)
--- NOTE | 2024-04-11 10:10 | P.PN ---
Subjective Progress Note Date: 04/11/24 HISTORY OF PRESENTING ILLNESS 79-year-old with PMH of hypertension, type 2 diabetes, dyslipidemia, rheumatoid arthritis with rheumatic lung disease, resident of a retirement. Patient presented to the hospital because of falling twice at the facility. On admission he was noticed to be hypotensive. For this patient received 2 to 3 L of fluid. There was concerns of possible sepsis. Currently he is being treated for sepsis and is getting worked up for infectious disease etiology. Cardiology was consulted for the reason of elevated troponins. Troponin was elevated 0.52, repeat 0.3. NT-proBNP elevated at 1000, creatinine at 2.4. Platelets 125. CXR shows chronic scarring but no significant acute pulmonary congestion. Progress note April 11, 2024 Patient is seen and examined at bedside this a.m. Last night patient was getting sundowning for which she got Seroquel this morning. He is sleeping in the bed comfortably. Hemodynamically stable. No concerns of any arrhythmias on telemetry monitoring. Kidney function is slightly better, last night he was febrile. Procalcitonin is minimally elevated at 0.6. WBC count has improved with antibiotics. Platelets have trended down, currently in 80s PHYSICAL EXAMINATION Vital signs reviewed. Head: Normocephalic. Eyes: Sclerae nonicteric. Neck: Brisk carotid upstroke, no jugular venous distention. Lungs: Mild crackles audible in bilateral lung kemp Heart: Regular rate and rhythm, S1-S2, no S3, no murmur or rub. Abdomen: Soft nontender, mild tenderness in right upper quadrant. Positive bowel sounds. Extremities: No edema, intact distal pulses. Neuro: Drowsy due to seroquel. Detailed neuro exam was not performed. 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 PLAN Less likely acute coronary syndrome. ECG shows sinus rhythm with right bundle branch block with no significant ST changes concerning of acute ischemia. Resume Eliquis. Will do 2.5 mg twice daily because of low platelets and low kidney function. Infectious workup pending supportive care as per the ICU team and the primary team. At this time patient is stable from cardiovascular standpoint. Cardiology team will sign off. Please reconsult us in case of any question. I agree with downgrading the patient to 3 S. telemetry floor Objective - Vital Signs Vital signs: Vital Signs Temp 98.7 F 04/11/24 08:15 Pulse 103 H 04/11/24 09:15 Resp 22 04/11/24 09:15 BP 129/70 04/11/24 09:15 Pulse Ox 98 04/11/24 09:15 FiO2 Intake & Output 04/10/24 04/11/24 04/11/24 18:59 06:59 18:59 Intake Total 3823.105 6155.850 150 Output Total 1655 1055 190 Balance -498.698 65.850 -40 Weight 96.5 kg Intake: Intake, IV Titration 749.892 4830.850 150 Amount Cefepime 2 gm In Sodium 100 200 Chloride 0.9% 100 ml @ 25 mls/hr IVPB Q8H DAVID Rx#: [id number] Norepinephrine 4 mg In 141.302 20.850 Sodium Chloride 0.9% 250 ml @ 0.03 MCG/KG/MIN 9. 851 mls/hr IV .Q24H DAVID Rx#:[id number] Sodium Chloride 0.9% 1, 675 900 150 000 ml @ 75 mls/hr IV . [id number] DAVID Rx#:[id number] Oral 240 Output: Urine 1655 1055 190 Uretheral (Valiente) 500 Other: Voiding Method Indwelling Catheter Indwelling Catheter Indwelling Catheter # Bowel Movements 2 - Labs CBC & Chem 7: 04/11/24 03:14 04/11/24 03:23 Labs: Abnormal Lab Results - Last 24 Hours (Table) 04/10/24 04/10/24 04/10/24 Range/Units 08:43 08:43 11:55 RBC (4.30-5.90) m/uL Hgb (13.0-17.5) gm/dL Hct (39.0-53.0) % MCV (80.0-100.0) fL RDW (11.5-15.5) % Plt Count (150-450) k/uL Neutrophils # (Manual) (1.3-7.7) k/uL Lymphocytes # (Manual) (1.0-4.8) k/uL Chloride (98-107) mmol/L Carbon Dioxide (22-30) mmol/L BUN (9-20) mg/dL Creatinine (0.66-1.25) mg/dL Glucose (74-99) mg/dL POC Glucose (mg/dL) 134 H (70-110) mg/dL Hemoglobin A1c (<=6.0) % Calcium (8.4-10.2) mg/dL Troponin I 0.380 H* (0.000-0.034) ng/mL Total Protein (6.3-8.2) g/dL Albumin (3.5-5.0) g/dL Procalcitonin 0.61 H (0.02-0.50) ng/mL 04/10/24 04/10/24 04/10/24 Range/Units 12:33 17:51 20:52 RBC (4.30-5.90) m/uL Hgb (13.0-17.5) gm/dL Hct (39.0-53.0) % MCV (80.0-100.0) fL RDW (11.5-15.5) % Plt Count (150-450) k/uL Neutrophils # (Manual) (1.3-7.7) k/uL Lymphocytes # (Manual) (1.0-4.8) k/uL Chloride (98-107) mmol/L Carbon Dioxide (22-30) mmol/L BUN (9-20) mg/dL Creatinine (0.66-1.25) mg/dL Glucose (74-99) mg/dL POC Glucose (mg/dL) 193 H 232 H (70-110) mg/dL Hemoglobin A1c (<=6.0) % Calcium (8.4-10.2) mg/dL Troponin I 0.306 H* (0.000-0.034) ng/mL Total Protein (6.3-8.2) g/dL Albumin (3.5-5.0) g/dL Procalcitonin (0.02-0.50) ng/mL 04/11/24 04/11/24 04/11/24 Range/Units 03:14 03:23 03:23 RBC 2.83 L (4.30-5.90) m/uL Hgb 9.8 L (13.0-17.5) gm/dL Hct 28.9 L (39.0-53.0) % MCV 102.1 H (80.0-100.0) fL RDW 17.5 H (11.5-15.5) % Plt Count 85 L (150-450) k/uL Neutrophils # (Manual) 8.37 H (1.3-7.7) k/uL Lymphocytes # (Manual) 0.46 L (1.0-4.8) k/uL Chloride 114 H (98-107) mmol/L Carbon Dioxide 17 L (22-30) mmol/L BUN 31 H (9-20) mg/dL Creatinine 2.32 H (0.66-1.25) mg/dL Glucose 150 H (74-99) mg/dL POC Glucose (mg/dL) (70-110) mg/dL Hemoglobin A1c 9.4 H (<=6.0) % Calcium 7.6 L (8.4-10.2) mg/dL Troponin I (0.000-0.034) ng/mL Total Protein 4.6 L (6.3-8.2) g/dL Albumin 2.1 L (3.5-5.0) g/dL Procalcitonin (0.02-0.50) ng/mL 04/11/24 Range/Units 05:59 RBC (4.30-5.90) m/uL Hgb (13.0-17.5) gm/dL Hct (39.0-53.0) % MCV (80.0-100.0) fL RDW (11.5-15.5) % Plt Count (150-450) k/uL Neutrophils # (Manual) (1.3-7.7) k/uL Lymphocytes # (Manual) (1.0-4.8) k/uL Chloride (98-107) mmol/L Carbon Dioxide (22-30) mmol/L BUN (9-20) mg/dL Creatinine (0.66-1.25) mg/dL Glucose (74-99) mg/dL POC Glucose (mg/dL) 170 H (70-110) mg/dL Hemoglobin A1c (<=6.0) % Calcium (8.4-10.2) mg/dL Troponin I (0.000-0.034) ng/mL Total Protein (6.3-8.2) g/dL Albumin (3.5-5.0) g/dL Procalcitonin (0.02-0.50) ng/mL
--- NOTE | 2024-04-11 10:24 | P.PN ---
Subjective Progress Note Date: 04/11/24 Principal diagnosis: Hypotension. Pulmonary consult dated April 10, 2024. 79-year-old male with a history of diabetes, deafness, hyperlipidemia, hypertension, pulmonary embolism, rheumatoid arthritis, and multiple bilateral pulmonary nodules, secondary to rheumatoid arthritis. The patient resides at [facility], and apparently fell twice, and was brought into the emergency department, to be evaluated. He is seen down in the emergency department, room 16. He is currently on 3 L nasal cannula. He is getting saline at 75 cc an hour. He has received 3 L of fluid bolus, and unfortunately his blood pressure continues to be low at 75/45. The patient is a bit lethargic and sleepy, not a particular good historian. He was not sure why he was in the emergency department. He is not even sure why he was at [facility]. Anyway, the patient is evaluated. The patient will need further monitoring and management, and will be admitted to the intensive care unit. He likely will need some norepinephrine, for his low blood pressure since he has not responded to fluids. In addition, we will have cardiology see him given the fact that there is some mild EKG changes, as well as an elevated troponin. He may be a patient with a non-ST segment elevation myocardial infarction. Current labs include a white count 13.9, hemoglobin 9.2, macro 34.2, and a platelet count of 125,000. Sodium 132, potassium 4.6, chlorides 106, CO2 22, BUN 30, creatinine 2.46. Troponin was 0.522. N-terminal proBNP was 1030. Albumin was 2.6. He tested negative for influenza, RSV, and coronavirus. Chest x-ray showed no acute cardiopulmonary disease. CT scan of the brain, cervical spine, and x-rays of the pelvis, are all negative. The patient was placed on cefepime by the primary service. A procalcitonin level is pending. Progress note dated April 11, 2024. The patient is seen today in room 264. He is on 2 L of oxygen. Norepinephrine has been weaned off. The patient is on saline at 75 cc an hour. The patient has been very restless and agitated. We added Seroquel 25 mg 3 times a day to his regimen. Because of his ongoing agitation, and delirium, we will ask psychiatry to see him. Current labs include a white count 9.2, hemoglobin 9.8, hematocrit 28.9, and a platelet count of 85,000. Sodium 137, potassium 4.5, chloride 114, CO2 17, BUN 31, creatinine 2.32. Glucose is 170. Objective - Vital Signs Vital signs: Vital Signs Temp 98.7 F 04/11/24 08:15 Pulse 107 H 04/11/24 10:00 Resp 14 04/11/24 10:00 BP 129/70 04/11/24 10:00 Pulse Ox 97 04/11/24 10:00 FiO2 Intake & Output 04/10/24 04/11/24 04/11/24 18:59 06:59 18:59 Intake Total 9677.452 9769.850 150 Output Total 1655 1055 190 Balance -498.698 65.850 -40 Weight 96.5 kg Intake: Intake, IV Titration 963.718 0737.850 150 Amount Cefepime 2 gm In Sodium 100 200 Chloride 0.9% 100 ml @ 25 mls/hr IVPB Q8H DAVID Rx#: [id number] Norepinephrine 4 mg In 141.302 20.850 Sodium Chloride 0.9% 250 ml @ 0.03 MCG/KG/MIN 9. 851 mls/hr IV .Q24H DAVID Rx#:[id number] Sodium Chloride 0.9% 1, 675 900 150 000 ml @ 75 mls/hr IV . [id number] DAVID Rx#:[id number] Oral 240 Output: Urine 1655 1055 190 Uretheral ([place]) 500 Other: Voiding Method Indwelling Catheter Indwelling Catheter Indwelling Catheter # Bowel Movements 2 - Exam No acute distress, oriented 3. The patient is agitated, and delirious. Currently, he is on 2 L. HEENT examination is grossly unremarkable. Mucous membranes are moist. No oral lesions. Neck supple. Full range of motion. No adenopathy thyromegaly or neck vein distention. Cardiovascular examination reveals regular rhythm rate. S1-S2 normal. No S3 or S4. No discernible murmur noted. Lungs reveal clear breath sounds. Breath sounds are equal bilaterally. No adventitious lung sounds including wheezes rhonchi or crackles. Abdomen soft bowel sounds are heard. No masses or tenderness. Extremities are intact. No cyanosis clubbing or edema. Skin is without rash or lesion. Neurologic examination is brief but nonfocal. - Labs CBC & Chem 7: 04/11/24 03:14 04/11/24 03:23 Labs: Abnormal Lab Results - Last 24 Hours (Table) 04/10/24 04/10/24 04/10/24 Range/Units 08:43 08:43 11:55 RBC (4.30-5.90) m/uL Hgb (13.0-17.5) gm/dL Hct (39.0-53.0) % MCV (80.0-100.0) fL RDW (11.5-15.5) % Plt Count (150-450) k/uL Neutrophils # (Manual) (1.3-7.7) k/uL Lymphocytes # (Manual) (1.0-4.8) k/uL Chloride (98-107) mmol/L Carbon Dioxide (22-30) mmol/L BUN (9-20) mg/dL Creatinine (0.66-1.25) mg/dL Glucose (74-99) mg/dL POC Glucose (mg/dL) 134 H (70-110) mg/dL Hemoglobin A1c (<=6.0) % Calcium (8.4-10.2) mg/dL Troponin I 0.380 H* (0.000-0.034) ng/mL Total Protein (6.3-8.2) g/dL Albumin (3.5-5.0) g/dL Procalcitonin 0.61 H (0.02-0.50) ng/mL 04/10/24 04/10/24 04/10/24 Range/Units 12:33 17:51 20:52 RBC (4.30-5.90) m/uL Hgb (13.0-17.5) gm/dL Hct (39.0-53.0) % MCV (80.0-100.0) fL RDW (11.5-15.5) % Plt Count (150-450) k/uL Neutrophils # (Manual) (1.3-7.7) k/uL Lymphocytes # (Manual) (1.0-4.8) k/uL Chloride (98-107) mmol/L Carbon Dioxide (22-30) mmol/L BUN (9-20) mg/dL Creatinine (0.66-1.25) mg/dL Glucose (74-99) mg/dL POC Glucose (mg/dL) 193 H 232 H (70-110) mg/dL Hemoglobin A1c (<=6.0) % Calcium (8.4-10.2) mg/dL Troponin I 0.306 H* (0.000-0.034) ng/mL Total Protein (6.3-8.2) g/dL Albumin (3.5-5.0) g/dL Procalcitonin (0.02-0.50) ng/mL 04/11/24 04/11/24 04/11/24 Range/Units 03:14 03:23 03:23 RBC 2.83 L (4.30-5.90) m/uL Hgb 9.8 L (13.0-17.5) gm/dL Hct 28.9 L (39.0-53.0) % MCV 102.1 H (80.0-100.0) fL RDW 17.5 H (11.5-15.5) % Plt Count 85 L (150-450) k/uL Neutrophils # (Manual) 8.37 H (1.3-7.7) k/uL Lymphocytes # (Manual) 0.46 L (1.0-4.8) k/uL Chloride 114 H (98-107) mmol/L Carbon Dioxide 17 L (22-30) mmol/L BUN 31 H (9-20) mg/dL Creatinine 2.32 H (0.66-1.25) mg/dL Glucose 150 H (74-99) mg/dL POC Glucose (mg/dL) (70-110) mg/dL Hemoglobin A1c 9.4 H (<=6.0) % Calcium 7.6 L (8.4-10.2) mg/dL Troponin I (0.000-0.034) ng/mL Total Protein 4.6 L (6.3-8.2) g/dL Albumin 2.1 L (3.5-5.0) g/dL Procalcitonin (0.02-0.50) ng/mL 04/11/24 Range/Units 05:59 RBC (4.30-5.90) m/uL Hgb (13.0-17.5) gm/dL Hct (39.0-53.0) % MCV (80.0-100.0) fL RDW (11.5-15.5) % Plt Count (150-450) k/uL Neutrophils # (Manual) (1.3-7.7) k/uL Lymphocytes # (Manual) (1.0-4.8) k/uL Chloride (98-107) mmol/L Carbon Dioxide (22-30) mmol/L BUN (9-20) mg/dL Creatinine (0.66-1.25) mg/dL Glucose (74-99) mg/dL POC Glucose (mg/dL) 170 H (70-110) mg/dL Hemoglobin A1c (<=6.0) % Calcium (8.4-10.2) mg/dL Troponin I (0.000-0.034) ng/mL Total Protein (6.3-8.2) g/dL Albumin (3.5-5.0) g/dL Procalcitonin (0.02-0.50) ng/mL Assessment and Plan Assessment: Status post fall, with hypotension, of unclear etiology. Rule out non-ST segment elevation myocardial infarction, versus occult infection/sepsis. History of hypertension. History of hyperlipidemia. History of diabetes mellitus. Chronic kidney disease. History of pulmonary embolism. History of rheumatoid arthritis. Multiple bilateral pulmonary nodules, consistent with rheumatoid pulmonary nodules. History of diverticular disease. Plan: Plan dated April 10, 2024. The patient was seen in the emergency department, room 16. The patient will be transferred to the intensive care unit, for further monitoring and management. The patient will be placed on norepinephrine, to maintain a mean arterial pressure of 65. The patient already received 3 L of fluid, and his blood pressure was still low. The patient is currently on 3 L of oxygen. Will ask cardiology to see him to rule out a non-ST segment elevation myocardial infarction. All x-rays are thus far negative. We will continue to follow make recommendations along the way. I saw the patient in the clinic for bilateral pulmonary nodules, which were thought to be metastatic deposits, but after robotic bronchoscopy, and video-assisted thoracoscopic biopsy, the lesions showed caseating granulomas, with negative special stains, consistent with rheumatoid pulmonary nodules. Plan dated April 11, 2024. The patient is seen today in room 264. The patient is quite agitated, and is having acute delirium. We added Seroquel 25 mg 3 times a day. Will ask psychiatry to see him. Additional recommendations and suggestions are forthcoming. The patient has been weaned off pressor. No additional recommendations are made at this time. Labs, x-rays, and all medications have been reviewed. Time with Patient: Less than 30
--- NOTE | 2024-04-11 11:17 | P.PN ---
Subjective Progress Note Date: 04/11/24 Patient seen in follow-up for CHAITANYA on CKD. Confused and agitated this morning. Per nursing fevers again this morning. General: agitated Head exam: atraumatic, normocephalic, Respiratory exam: normal lung sounds bilaterally Cardiovascular Exam: regular rate, normal rhythm, normal heart sounds. GI/Abdominal exam: soft, normal bowel sounds. Extremities exam: no edema Neurological exam: alert, oriented X 1 Objective - Vital Signs Vital signs: Vital Signs Temp 100.6 F H 04/11/24 08:00 Pulse 110 H 04/11/24 08:00 Resp 23 04/11/24 08:00 BP 133/60 04/11/24 08:00 Pulse Ox 92 L 04/11/24 08:00 FiO2 Intake & Output 04/10/24 04/11/24 04/11/24 18:59 06:59 18:59 Intake Total 1094.549 5336.850 150 Output Total 1655 1055 190 Balance -498.698 65.850 -40 Weight 96.5 kg Intake: Intake, IV Titration 165.866 3991.850 150 Amount Cefepime 2 gm In Sodium 100 200 Chloride 0.9% 100 ml @ 25 mls/hr IVPB Q8H DAVID Rx#: [id number] Norepinephrine 4 mg In 141.302 20.850 Sodium Chloride 0.9% 250 ml @ 0.03 MCG/KG/MIN 9. 851 mls/hr IV .Q24H DAVID Rx#:[id number] Sodium Chloride 0.9% 1, 675 900 150 000 ml @ 75 mls/hr IV . [id number] DAVID Rx#:[id number] Oral 240 Output: Urine 1655 1055 190 Uretheral ([place]) 500 Other: Voiding Method Indwelling Catheter Indwelling Catheter Indwelling Catheter # Bowel Movements 2 - Labs CBC & Chem 7: 04/11/24 03:14 04/11/24 03:23 Labs: Abnormal Lab Results - Last 24 Hours (Table) 04/10/24 04/10/24 04/10/24 Range/Units 05:06 08:43 08:43 RBC (4.30-5.90) m/uL Hgb (13.0-17.5) gm/dL Hct (39.0-53.0) % MCV (80.0-100.0) fL RDW (11.5-15.5) % Plt Count (150-450) k/uL Neutrophils # (Manual) (1.3-7.7) k/uL Lymphocytes # (Manual) (1.0-4.8) k/uL Chloride (98-107) mmol/L Carbon Dioxide (22-30) mmol/L BUN (9-20) mg/dL Creatinine (0.66-1.25) mg/dL Glucose (74-99) mg/dL POC Glucose (mg/dL) (70-110) mg/dL Calcium (8.4-10.2) mg/dL Troponin I 0.380 H* (0.000-0.034) ng/mL Total Protein (6.3-8.2) g/dL Albumin (3.5-5.0) g/dL Procalcitonin 0.61 H (0.02-0.50) ng/mL Urine Protein 1+ H (Negative) Urine Glucose (UA) 4+ H (Negative) Hyaline Casts 3 H (0-2) /lpf Urine Mucus Rare H (None) /hpf 04/10/24 04/10/24 04/10/24 Range/Units 09:21 11:55 12:33 RBC (4.30-5.90) m/uL Hgb (13.0-17.5) gm/dL Hct (39.0-53.0) % MCV (80.0-100.0) fL RDW (11.5-15.5) % Plt Count (150-450) k/uL Neutrophils # (Manual) (1.3-7.7) k/uL Lymphocytes # (Manual) (1.0-4.8) k/uL Chloride (98-107) mmol/L Carbon Dioxide (22-30) mmol/L BUN (9-20) mg/dL Creatinine (0.66-1.25) mg/dL Glucose (74-99) mg/dL POC Glucose (mg/dL) 141 H 134 H (70-110) mg/dL Calcium (8.4-10.2) mg/dL Troponin I 0.306 H* (0.000-0.034) ng/mL Total Protein (6.3-8.2) g/dL Albumin (3.5-5.0) g/dL Procalcitonin (0.02-0.50) ng/mL Urine Protein (Negative) Urine Glucose (UA) (Negative) Hyaline Casts (0-2) /lpf Urine Mucus (None) /hpf 04/10/24 04/10/24 04/11/24 Range/Units 17:51 20:52 03:14 RBC 2.83 L (4.30-5.90) m/uL Hgb 9.8 L (13.0-17.5) gm/dL Hct 28.9 L (39.0-53.0) % MCV 102.1 H (80.0-100.0) fL RDW 17.5 H (11.5-15.5) % Plt Count 85 L (150-450) k/uL Neutrophils # (Manual) 8.37 H (1.3-7.7) k/uL Lymphocytes # (Manual) 0.46 L (1.0-4.8) k/uL Chloride (98-107) mmol/L Carbon Dioxide (22-30) mmol/L BUN (9-20) mg/dL Creatinine (0.66-1.25) mg/dL Glucose (74-99) mg/dL POC Glucose (mg/dL) 193 H 232 H (70-110) mg/dL Calcium (8.4-10.2) mg/dL Troponin I (0.000-0.034) ng/mL Total Protein (6.3-8.2) g/dL Albumin (3.5-5.0) g/dL Procalcitonin (0.02-0.50) ng/mL Urine Protein (Negative) Urine Glucose (UA) (Negative) Hyaline Casts (0-2) /lpf Urine Mucus (None) /hpf 04/11/24 04/11/24 Range/Units 03:23 05:59 RBC (4.30-5.90) m/uL Hgb (13.0-17.5) gm/dL Hct (39.0-53.0) % MCV (80.0-100.0) fL RDW (11.5-15.5) % Plt Count (150-450) k/uL Neutrophils # (Manual) (1.3-7.7) k/uL Lymphocytes # (Manual) (1.0-4.8) k/uL Chloride 114 H (98-107) mmol/L Carbon Dioxide 17 L (22-30) mmol/L BUN 31 H (9-20) mg/dL Creatinine 2.32 H (0.66-1.25) mg/dL Glucose 150 H (74-99) mg/dL POC Glucose (mg/dL) 170 H (70-110) mg/dL Calcium 7.6 L (8.4-10.2) mg/dL Troponin I (0.000-0.034) ng/mL Total Protein 4.6 L (6.3-8.2) g/dL Albumin 2.1 L (3.5-5.0) g/dL Procalcitonin (0.02-0.50) ng/mL Urine Protein (Negative) Urine Glucose (UA) (Negative) Hyaline Casts (0-2) /lpf Urine Mucus (None) /hpf Assessment and Plan Assessment: 1. CHAITANYA due to ATN from hypotension/shock. Presented creatinine 2.4 and stable. UA shows hyaline casts mild protein. 2. Shock possibly septic 3. CKD Stage 3a. Baseline creatinine 1.2-1.4 mg/dL 4. Mild hyponatremia with sodium 132-Improved 5. Fall 6. HTN with CKD 7. Type 2 Diabetes Plan BP support with IVF, off pressors now ABX per ID Supportive care for now, no indications for HD
[2024-04-11] MEDS: HALOPERIDOL LACTATE 5 MG/ML 1 ML VIAL IVP STA (11:29)
[2024-04-11 12:36] LABS: Glucose,Whole Blood 161 mg/dL (70-110)
[2024-04-11] MEDS: HALOPERIDOL LACTATE 5 MG/ML 1 ML VIAL IVP PRN (15:46)
[2024-04-11] MEDS: MORPHINE SULFATE 4 MG/ML SYRINGE IV PRN (16:18)
[2024-04-11] MEDS: LORazepam 2 MG/ML INJ IV STA (17:04)
[2024-04-11] MEDS: HALOPERIDOL LACTATE 5 MG/ML 1 ML VIAL IVP ONE (17:05)
[2024-04-11 20:20] LABS: Glucose,Whole Blood 145 mg/dL (70-110)
[2024-04-12 05:29] LABS: Anisocytosis Slight; HCT 28.8 % (39.0-53.0); HGB 9.4 gm/dL (13.0-17.5); Hypochromasia Moderate; MCH 33.9 pg (25.0-35.0); MCHC 32.6 g/dL (31.0-37.0); MCV 103.8 fL (80.0-100.0); Macrocytosis Moderate; Mean Platelet Volume 8.7; Poikilocytosis Slight; RBC 2.78 m/uL (4.30-5.90); RDW 16.8 % (11.5-15.5); WBC 6.8 k/uL (3.8-10.6)
[2024-04-12 05:30] LABS: Platelet Count 77 k/uL (150-450)
[2024-04-12 05:42] LABS: African American GFR (CKD) 37 (>60 ml/min/1.73 sqM); Anion Gap 7 mmol/L; Blood Urea Nitrogen 25 mg/dL (9-20); Calcium 8.3 mg/dL (8.4-10.2); Carbon Dioxide 16 mmol/L (22-30); Chloride 117 mmol/L (98-107); Glucose 123 mg/dL (74-99); Non-African American GFR(CKD) 32 (>60 ml/min/1.73 sqM); Sodium 140 mmol/L (137-145)
[2024-04-12 05:46] LABS: Band Neutrophils % 10 %; Eosinophils # (M) 0.07 k/uL (0-0.7); Lymphocytes # (M) 0.61 k/uL (1.0-4.8); Neutrophils % (M) 77 %; Nucleated Red Blood Cells 0 /100 WBC (0-0); Total Cells Counted 100
[2024-04-12 05:48] LABS: Anisocytosis (M) Present; Crenated RBC Present; Ovalocytes Present; Poikilocytosis (M) Present; Tear Drop Cells Present
[2024-04-12 05:58] LABS: Potassium 4.9 mmol/L (3.5-5.1)
[2024-04-12 06:33] LABS: Glucose,Whole Blood 122 mg/dL (70-110)
[2024-04-12] MEDS: HALOPERIDOL LACTATE 5 MG/ML 1 ML VIAL IVP PRN (07:29)
--- NOTE | 2024-04-12 08:08 | P.PN ---
Subjective This is a pleasant 79 years old male who was transferred from [facility] for multiple falls in 24 hours. Patient currently cannot provide information it was obtained from staff, records and at bedside As per he was recently discharged from [facility] about 1 week earlier for CHF, acute kidney injury and pneumonia. These are per patient. On admission patient was found to be hypotensive, blood pressure 109/61 went down to 63/41, currently 85/40 Patient currently cannot provide information and he is nonverbal. at bedside There is very small pressure ulcers in the lower back. No tachypnea, abdomen lo oks soft. Urine catheter was placed in the hospital with clear urine. No evidence of suprapubic tenderness. No other rash. He has small abrasion on the right arm. Pupils are equal and reactive to light. Neck looks supple. No leg edema. On admission he had low-grade fever of 100.5 Labs reviewed he has leukocytosis of 13.9, hemoglobin 11.2, low platelet count 125, creatinine 2.4 with baseline 1.3-1.6 Liver enzymes, INR were unremarkable Influenza A and type B, RSV, SARS (coronavirus) are and detected Urinalysis showed glucosuria but no ketonuria Elevated troponin but is chronically elevated proBNP is slightly elevated 1030 CT of the head and neck is negative for acute process in either Pelvic x-ray is negative for acute process or fracture or dislocation EKG shows sinus rhythm at [address]-T changes Patient was received 3 L in the emergency room and started on normal sinus 75 mL/h also on ceftriaxone. patient care nursing assistant 18 was called and patient was transferred to the ICU and he was started on Levophed On review of the records: Previous CT of the chest showing scattered cavitary lesions and pulmonary nodules with left lower lung suspected mass. He s/p bronchoscopy on 10/04/2023 was negative cytology for malignant cells. Also patient had PET scan on 10/23/23 showing new uptake in the right pleural costophrenic angle and new punctate area within mediastinum with right peribronchial lymph nodes and multiple stable pulmonary nodules and nonspecific changes posterior to the coccyx and left pubic ramus could be infection, injury versus metastasis. Status post wedge resection of the left lung on 10/2023 Patient is more awake today, sitting in bed, trying to eat his breakfast, at bedside Look patient looks pleasant, slightly agitated and anxious, he follows command. He looks calm and relaxed. He denies significant tachypnea however he still has mild heavy breathing with no cough or chest pain Abdomen soft with no symptoms [place] catheter in place Levophed was off since the night before Getting IV fluid normal saline at 75 mL/h 85. WBC normal 9.2, hemoglobin slightly low at 9.8. Creatinine slightly lower at 2.3. It was 2.4 yesterday Creatinine slightly low, has thrombocytopenia at 85 And remains on cefepime. Pro- Calcitonin was elevated 0.61 04/12 Patient today remains in the ICU, his mentation got worse, he is not answering questions, not following commands, staff does not feel safe to give him pills orally. He has restraints and safety net maker at bedside Yesterday morning he was more awake sitting up in bed. He is on Eliquis added by flatbed company driver. CT of the brain on admission was negative for acute process. Will going to consult neurology service for this purpose. His infection is improving with his leukocytosis is down, fever stopped WBC 6.8, hemoglobin 9.4, platelet count 77, creatinine trending down 2.4 down to 1.9, with baseline 1.3-1.6. Blood pressure on the low side, fever subsided. Blood culture still pending Currently on ceftriaxone and normal saline. Review of systems: na, because of patient mental status Active Medications Generic Name Dose Route Start Last Admin Trade Name Freq PRN Reason Stop Dose Admin Acetaminophen 650 mg 04/10/24 23:39 04/10/24 23:46 Acetaminophen Tab 325 Mg Tab PO 650 mg Q6HR PRN Administration Fever Apixaban 2.5 mg 04/10/24 21:00 04/11/24 20:49 Apixaban 2.5 Mg Tablet PO Not Given BID DAVID Protocol Dextrose/Water 25 ml 04/10/24 17:05 Dextrose 50% Syringe 50 Ml IVP PER PROTOCOL PRN Hypoglycemia Protocol Dextrose/Water 50 ml 04/10/24 17:05 Dextrose 50% Syringe 50 Ml IVP PER PROTOCOL PRN Hypoglycemia Protocol Famotidine 10 mg 04/10/24 21:00 04/11/24 20:20 Famotidine 20 Mg Tab PO Not Given Q12HR DAVID Haloperidol Lactate 4 mg 04/11/24 11:29 04/12/24 07:29 Haloperidol Lactate 5 Mg/Ml 1 Ml Vial IVP 4 mg Q4HR PRN Administration Agitation or Acute Psychosis Haloperidol Lactate 8 mg 04/11/24 11:30 04/12/24 02:00 Haloperidol Lactate 5 Mg/Ml 1 Ml Vial IVP 8 mg Q4HR PRN Administration Agitation or Acute Psychosis Sodium Chloride 1,000 mls @ 75 mls/hr 04/10/24 06:45 04/11/24 23:51 Saline 0.9% IV 75 mls/hr .[id number] DAVID Administration Norepinephrine Bitartrate 4 mg 254 mls @ 9.851 mls/hr 04/10/24 08:45 04/11/24 09:56 / Sodium Chloride IV Not Given .Q24H DAVID Protocol 0.03 MCG/KG/MIN Cefepime HCl 2 gm/ Sodium 100 mls @ 25 mls/hr 04/10/24 11:00 04/12/24 02:51 Chloride IVPB 25 mls/hr Q8H DAVID Administration Protocol Insulin Aspart 0 unit 04/10/24 17:30 04/12/24 06:33 Insulin Aspart (Novolog) 100 Unit/Ml Vial SQ Not Given ACHS [facility] Protocol Morphine Sulfate 4 mg 04/10/24 06:34 04/12/24 07:55 Morphine Sulfate 4 Mg/Ml Syringe IV 4 mg Q4HR PRN Administration Severe Pain (Scale 7 to 10) Naloxone HCl 0.2 mg 04/10/24 06:34 Naloxone 0.4 Mg/Ml 1 Ml Vial IV Q2M PRN Opioid Reversal Ondansetron HCl 4 mg 04/10/24 06:34 Ondansetron 4 Mg/2 Ml Vial IVP Q8HR PRN Nausea And Vomiting Pantoprazole Sodium 40 mg 04/10/24 09:00 04/12/24 07:57 Pantoprazole 40 Mg/10 Ml Vial IV 40 mg DAILY DAVID Administration Quetiapine Fumarate 25 mg 04/11/24 09:00 04/11/24 20:50 Quetiapine 25 Mg Tab PO Not Given TID [facility] Objective - Vital Signs Vital signs: Vital Signs Temp 98.2 F 04/12/24 04:00 Pulse 100 04/12/24 07:00 Resp 12 04/12/24 07:00 BP 139/55 04/12/24 07:00 Pulse Ox 99 04/12/24 07:00 FiO2 Intake & Output 04/11/24 04/12/24 04/12/24 18:59 06:59 18:59 Intake Total 925 1175 Output Total 1265 1025 Balance -340 150 Weight 90.9 kg Intake: IV 775 1175 Sodium Chloride 0.9% 1, 675 975 000 ml @ 75 mls/hr IV . [id number] DAVID Rx#:[id number] cefipime 100 200 Intake, IV Titration 150 Amount Sodium Chloride 0.9% 1, 150 000 ml @ 75 mls/hr IV . [id number] DAVID Rx#:[id number] Oral 0 0 Output: Urine 1265 1025 Other: Voiding Method Indwelling Catheter Indwelling Catheter # Bowel Movements 2 - Exam -GENERAL: The patient is alert and alert, oriented partially to place time and person, still mildly confused, slightly anxious and agitated, follows commands, not in any acute distress. Well developed, well nourished. HEENT: Pupils are round and equally reacting to light. EOMI. No scleral icterus. No conjunctival pallor. Normocephalic, atraumatic. No pharyngeal erythema. No thyromegaly. CARDIOVASCULAR: S1 and S2 present. No murmurs, rubs, or gallops. PULMONARY: Chest is clear to auscultation, no wheezing , no crackles. ABDOMEN: Soft, nontender, nondistended, normoactive bowel sounds. No palpable organomegaly. MUSCULOSKELETAL: No joint swelling or deformity. EXTREMITIES: No cyanosis, clubbing, or pedal edema. NEUROLOGICAL: Gross neurological examination did not reveal any focal deficits. SKIN: No rashes. no petechiae. - Labs CBC & Chem 7: 04/12/24 04:29 04/12/24 04:29 Labs: Abnormal Lab Results - Last 24 Hours (Table) 04/11/24 04/11/24 04/11/24 Range/Units 03:23 12:35 20:19 RBC (4.30-5.90) m/uL Hgb (13.0-17.5) gm/dL Hct (39.0-53.0) % MCV (80.0-100.0) fL RDW (11.5-15.5) % Plt Count (150-450) k/uL Lymphocytes # (Manual) (1.0-4.8) k/uL Chloride (98-107) mmol/L Carbon Dioxide (22-30) mmol/L BUN (9-20) mg/dL Creatinine (0.66-1.25) mg/dL Glucose (74-99) mg/dL POC Glucose (mg/dL) 161 H 145 H (70-110) mg/dL Hemoglobin A1c 9.4 H (<=6.0) % Calcium (8.4-10.2) mg/dL 04/12/24 04/12/24 04/12/24 Range/Units 04:29 04:29 06:32 RBC 2.78 L (4.30-5.90) m/uL Hgb 9.4 L (13.0-17.5) gm/dL Hct 28.8 L (39.0-53.0) % MCV 103.8 H (80.0-100.0) fL RDW 16.8 H (11.5-15.5) % Plt Count 77 L (150-450) k/uL Lymphocytes # (Manual) 0.61 L (1.0-4.8) k/uL Chloride 117 H (98-107) mmol/L Carbon Dioxide 16 L (22-30) mmol/L BUN 25 H (9-20) mg/dL Creatinine 1.92 H (0.66-1.25) mg/dL Glucose 123 H (74-99) mg/dL POC Glucose (mg/dL) 122 H (70-110) mg/dL Hemoglobin A1c (<=6.0) % Calcium 8.3 L (8.4-10.2) mg/dL Microbiology - Last 24 Hours (Table) 04/10/24 12:33 Blood Culture - Preliminary Blood Assessment and Plan Assessment: -Sepsis with fever and leukocytosis, possibly pneumonia -Hypotension requiring pressors suspicious for shock state. Currently improved -Right and bilateral pulmonary nodules with abnormal PET scan with increased uptake in the left lower lung and mediastinal lymph node. Status post wedge resection of the left lower lung on 10/2023. 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 Continue with neurocheck and rule out neurological abnormality -Multiple falls at intermediate secondary to above -Rheumatoid arthritis -Diabetes mellitus -Hypertension -Hyperlipidemia -History of PE Plan: Continue with cefepime to cover for hospital acquired infection. As patient has frequent hospitalization and he was in intermediate Check pro- Calcitonin and CRP are reviewed Continue with normal saline. Patient currently off further pressors Pulmonary, cardiology and nephrology team consult Consult neurology service for his mental status change Labs and medication were reviewed.. Continue same treatment. Continue with symptomatic treatment. Resume home medication. Monitor lytes and vitals. DVT and GI prophylaxis. Further recommendations depends on the clinical course of the patient DVT prophylaxis: Subcutaneous heparin GI Prophylaxis: Pepcid PT/OT: Pending Prognosis is guarded
--- NOTE | 2024-04-12 12:13 | CT ---
EXAMINATION TYPE: CT brain wo con CT DLP: 1125.4 mGycm, Automated exposure control for dose reduction was used. DATE OF EXAM: 04/12/2024 12:01 PM COMPARISON: Prior CT Brain C-spine from 04/10/2024. CLINICAL INDICATION:Male, 79 years old with history of altered mental status, AMS TECHNIQUE: Brain: Multiple axial CT images of the brain were obtained without IV contrast. . Coronal and sagitta l reformats reviewed. FINDINGS: Brain: Extra-axial spaces: No abnormal extra-axial fluid collections. Ventricular system: Within normal limits Cerebral parenchyma: No acute intraparenchymal hemorrhage or mass effect. The kinsey-white junction is well differentiated. Scattered hypoattenuating areas are seen within the periventricular white matte r. Cerebellum: Unremarkable. Mass effect: No evidence of midline shift. Intracranial vasculature: Atherosclerotic calcifications of the intracranial vessels. Soft tissues: Normal. Calvarium/osseous structures: No depressed skull fracture. Paranasal sinuses and mastoid air cells: Mastoid air cells are clear. Mild mucosal thickening of the left inferior maxillary sinus with minimal mucosal thickening of the right sphenoid sinus. Visualized orbits: Bilateral aphakia IMPRESSION: 1. No acute intracranial process or significant change from prior. 2. Nonspecific white matter changes, likely secondary to chronic small vessel ischemic disease. [facility], , 04/12/2024 12:11 PM
[2024-04-12 12:17] LABS: Glucose,Whole Blood 124 mg/dL (70-110)
--- NOTE | 2024-04-12 12:25 | CT ---
EXAMINATION TYPE: CT chest wo con CT DLP: 591.8 mGycm, Automated exposure control for dose reduction was used. DATE OF EXAM: 04/12/2024 12:06 PM COMPARISON: Chest radiograph 04/10/2024, PEt CT 10/23/2023, CT chest 09/11/2023 CLINICAL INDICATION:Male, 79 years old with history of sepsis, altered mental status; PHH, sob TECHNIQUE: Multiple axial images were obtained through the chest without IV contrast. Lack of IV or o ral contrast limits evaluation of solid and hollow organ viscera. . Coronal and sagittal reformats re viewed. FINDINGS: LUNGS/ PLEURA: No pneumothorax. Trace left pleural effusion. Small right pleural effusion with locula sanya appearance with largest pocket within the right apex. Right pleural nodularity from prior examina tion. Postsurgical changes of the left mid lung with suture material identified anteriorly. Scattere d regions of atelectasis within the right upper and right lower lobes. Increased size of left lower l obe masslike consolidation measuring 3.8 cm. Bilateral pulmonary nodules are again visualized with estes rrounding streak-like opacities. AIRWAY: Secretions identified within the trachea extending into the right mainstem bronchus.. HEART: Cardiomegaly. Trace pericardial effusion. Moderate coronary arterial calcification. MEDIASTINUM: No gross evidence of adenopathy. VASCULATURE: No aortic aneurysm. Mild to moderate atelectatic calcification of the aorta and its bra nches. MUSCULOSKELETAL: No acute osseous abnormalities there is no aggressive osseous lesion. [facility] the [place] d thoracic spine. SOFT TISSUES/LYMPH NODES: Unremarkable. LOWER NECK: No significant findings. UPPER ABDOMEN: Redemonstration of nodular contour to the liver. Cortical thinning of the right kidney . Splenic flexure diverticulosis. IMPRESSION: 1. Small bilateral pleural effusions with loculated right apex effusion. Increased size of pleural n odularity in the right lung with increased size of left lower lobe masslike consolidation. Most consi stent with progression of disease. Superimposed infectious process is suggested with scattered region s of streak-like opacities and secretions identified of the trachea and right mainstem bronchus joe rning for aspiration. Evaluation is significantly limited due to lack of intravenous contrast. 2. Cardiomegaly. 3. Hepatic cirrhosis. 4. Colonic diverticulosis. [facility], , 04/12/2024 12:23 PM
[2024-04-12] MEDS: SODIUM BICARBONATE 150 MEQ in DEXTROSE 5% IN WATER 1,000 ML IV SCH (12:39)
[2024-04-12] MEDS: CEFEPIME 2 GM in SODIUM CHLORIDE 0.9% 100 ML IVPB SCH (12:39)
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
--- NOTE | 2024-04-12 13:29 | P.PN ---
Subjective patient is seen for follow-up for acute kidney injury. Patient remains confused. Sitter present in the room. Poor oral intake. Renal function has improved with creatinine down to 1.9. Started on bicarb drip this morning. Urine output at 50-80 mL per hour. Objective - Vital Signs Vital signs: Vital Signs Temp 99.8 F H 04/12/24 13:00 Pulse 109 H 04/12/24 13:00 Resp 13 04/12/24 13:00 BP 126/62 04/12/24 13:00 Pulse Ox 99 04/12/24 13:00 FiO2 Intake & Output 04/11/24 04/12/24 04/12/24 18:59 06:59 18:59 Intake Total 925 1175 500 Output Total 1265 1025 410 Balance -340 150 90 Weight 90.9 kg 90.9 kg Intake: IV 775 1175 300 Sodium Chloride 0.9% 1, 675 975 300 000 ml @ 75 mls/hr IV . [id number] [facility] Rx#:[id number] cefipime 100 200 Intake, IV Titration 150 200 Amount Cefepime 2 gm In Sodium 100 Chloride 0.9% 100 ml @ 25 mls/hr IVPB Q12H [facility] Rx# :[id number] Dextrose 5% in Water 1, 100 000 ml @ 100 mls/hr IV . [id number] [facility] with Sodium Bicarb (1 Meq/ml) 150 ml Rx#:[id number] Sodium Chloride 0.9% 1, 150 000 ml @ 75 mls/hr IV . [id number] [facility] Rx#:[id number] Oral 0 0 Output: Urine 1265 1025 410 Other: Voiding Method Indwelling Catheter Indwelling Catheter Indwelling Catheter # Bowel Movements 2 - Exam patient is comfortable. Does not communicate much. Examination of the heart S1 and S2 Examination of the lungs bilateral breath sounds are heard Abdomen is soft nontender Examination of lower extremitiesshows no significant edema - Labs CBC & Chem 7: 04/12/24 04:29 04/12/24 04:29 Labs: Abnormal Lab Results - Last 24 Hours (Table) 04/11/24 04/12/24 04/12/24 Range/Units 20:19 04:29 04:29 RBC 2.78 L (4.30-5.90) m/uL Hgb 9.4 L (13.0-17.5) gm/dL Hct 28.8 L (39.0-53.0) % MCV 103.8 H (80.0-100.0) fL RDW 16.8 H (11.5-15.5) % Plt Count 77 L (150-450) k/uL Lymphocytes # (Manual) 0.61 L (1.0-4.8) k/uL Chloride 117 H (98-107) mmol/L Carbon Dioxide 16 L (22-30) mmol/L BUN 25 H (9-20) mg/dL Creatinine 1.92 H (0.66-1.25) mg/dL Glucose 123 H (74-99) mg/dL POC Glucose (mg/dL) 145 H (70-110) mg/dL Calcium 8.3 L (8.4-10.2) mg/dL 04/12/24 04/12/24 Range/Units 06:32 12:16 RBC (4.30-5.90) m/uL Hgb (13.0-17.5) gm/dL Hct (39.0-53.0) % MCV (80.0-100.0) fL RDW (11.5-15.5) % Plt Count (150-450) k/uL Lymphocytes # (Manual) (1.0-4.8) k/uL Chloride (98-107) mmol/L Carbon Dioxide (22-30) mmol/L BUN (9-20) mg/dL Creatinine (0.66-1.25) mg/dL Glucose (74-99) mg/dL POC Glucose (mg/dL) 122 H 124 H (70-110) mg/dL Calcium (8.4-10.2) mg/dL Microbiology - Last 24 Hours (Table) 04/10/24 12:33 Blood Culture - Preliminary Blood Assessment and Plan Assessment: 1. CHAITANYA due to ATN from hypotension/shock. Presented creatinine 2.4 and stable. UA shows hyaline casts mild protein. 2. Hypotension rule out sepsis 3. CKD Stage 3a. Baseline creatinine 1.2-1.4 mg/dL. Etiology is diabetic kidney disease 4. Mild hyponatremia with sodium 132-Improved 5. Fall 6. HTN with CKD 7. Type 2 Diabetes 8. Metabolic acidosis non-gap secondary to acute kidney injury, started on IV bicarb 9. 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 Plan: continue bicarb drip Repeat labs in a.m. Continue with antibiotics
--- NOTE | 2024-04-12 14:24 | P.PN ---
Subjective Progress Note Date: 04/12/24 79-year-old male with a history of diabetes, deafness, hyperlipidemia, hypertension, pulmonary embolism, rheumatoid arthritis, and multiple bilateral pulmonary nodules, secondary to rheumatoid arthritis. The patient resides at [facility], and apparently fell twice, and was brought into the [facility] department, to be evaluated. He is seen down in the emergency department, room 16. He is currently on 3 L nasal cannula. He is getting saline at 75 cc an hour. He has received 3 L of fluid bolus, and unfortunately his blood pressure continues to be low at 75/45. The patient is a bit lethargic and sleepy, not a particular good historian. He was not sure why he was in the emergency department. He is not even sure why he was at [facility]. Anyway, the patient is evaluated. The patient will need further monitoring and management, and will be admitted to the intensive care unit. He likely will need some norepinephrine, for his low blood pressure since he has not responded to fluids. In addition, we will have cardiology see him given the fact that there is some mild EKG changes, as well as an elevated troponin. He may be a patient with a non-ST segment elevation myocardial infarction. Current labs include a white count 13.9, hemoglobin 9.2, macro 34.2, and a platelet count of 125,000. Sodium 132, potassium 4.6, chlorides 106, CO2 22, BUN 30, creatinine 2.46. Troponin was 0.522. N-terminal proBNP was 1030. Albumin was 2.6. He tested negative for influenza, RSV, and coronavirus. Chest x-ray showed no acute cardiopulmonary disease. CT scan of the brain, cervical spine, and x-rays of the pelvis, are all negative. The patient was placed on cefepime by the primary service. A procalcitonin level is pending. On 04/12/2024, the patient remains encephalopathic and occasionally agitated. Earlier this morning, prior to my arrival, the patient was given Haldol 4 mg IV and morphine 4 mg IV and currently is quite lethargic and obtunded. He remains on 2 L of oxygen by nasal cannula with a pulse ox of 99%. The patient presented to us with episodes of fever and the exact source is not clear. The chest x-ray shows a new onset opacity in the right lateral lung field and based on that, a CAT scan of the chest will be ordered. Meanwhile, as mentioned earlier, the patient has areas of bilateral cavitating pulmonary infiltrates and has been investigated in the past via bronchoscopy that yielded no microbial growth or malignancy. 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 Fungal stains and the mycobacterial stains came back negative. There was numerous large caseating adenomas with acute on chronic inflammatory changes and this was thought to be related to an underlying connective tissue disease. The patient has been maintained on prednisone 10 mg p.o. daily on outpatient basis. On today's evaluation, the sodium levels at 140, bicarbonate 16 with a BUN of 25 and a creatinine of 1.9. Noted the patient presented to us with a creatinine of 2.4 he does not an underlying chronic kidney disease. The risk is at 6.8 with hemoglobin 8.4 and a platelet count of 77. The patient has fluctuating platelet counts over the past 1 year. He remains on IV cefepime. He is also on anticoagulation with Eliquis 2.5 mg p.o. twice a day. He is off pressors. The procalcitonin level was at 0.6. Objective - Vital Signs Vital signs: Vital Signs Temp 99.0 F 04/12/24 08:00 Pulse 120 H 04/12/24 10:00 Resp 12 04/12/24 10:00 BP 118/57 04/12/24 10:00 Pulse Ox 97 04/12/24 10:00 FiO2 Intake & Output 04/11/24 04/12/24 04/12/24 18:59 06:59 18:59 Intake Total 925 1175 225 Output Total 1265 1025 230 Balance -340 150 -5 Weight 90.9 kg Intake: IV 775 1175 225 Sodium Chloride 0.9% 1, 675 975 225 000 ml @ 75 mls/hr IV . [id number] DAVID Rx#:[id number] cefipime 100 200 Intake, IV Titration 150 Amount Sodium Chloride 0.9% 1, 150 000 ml @ 75 mls/hr IV . [id number] DAVID Rx#:[id number] Oral 0 0 Output: Urine 1265 1025 230 Other: Voiding Method Indwelling Catheter Indwelling Catheter Indwelling Catheter # Bowel Movements 2 - Exam No acute distress, oriented 3. The patient is a lethargic, and there is a sitter at the bedside. Currently, he is on 2 L. HEENT examination is grossly unremarkable. Mucous membranes are moist. No oral lesions. Neck supple. Full range of motion. No adenopathy thyromegaly or neck vein distention. The patient has a short neck with crowding of the posterior pharynx Cardiovascular examination reveals regular rhythm rate. S1-S2 normal. No S3 or S4. No discernible murmur noted. Lungs reveal clear breath sounds. Breath sounds are equal bilaterally. No adventitious lung sounds including wheezes rhonchi or crackles. Abdomen soft bowel sounds are heard. No masses or tenderness. Extremities are intact. No cyanosis clubbing or edema. Skin is without rash or lesion. Neurologic examination is brief but nonfocal. A full neurologic exam cannot be done as the patient is not following commands, received a combination of Haldol and morphine earlier this morning. Moving all 4 extremities upon painful stimulation. - Labs CBC & Chem 7: 04/12/24 04:29 04/12/24 04:29 Labs: Abnormal Lab Results - Last 24 Hours (Table) 04/11/24 04/11/24 04/12/24 Range/Units 12:35 20:19 04:29 RBC 2.78 L (4.30-5.90) m/uL Hgb 9.4 L (13.0-17.5) gm/dL Hct 28.8 L (39.0-53.0) % MCV 103.8 H (80.0-100.0) fL RDW 16.8 H (11.5-15.5) % Plt Count 77 L (150-450) k/uL Lymphocytes # (Manual) 0.61 L (1.0-4.8) k/uL Chloride (98-107) mmol/L Carbon Dioxide (22-30) mmol/L BUN (9-20) mg/dL Creatinine (0.66-1.25) mg/dL Glucose (74-99) mg/dL POC Glucose (mg/dL) 161 H 145 H (70-110) mg/dL Calcium (8.4-10.2) mg/dL 04/12/24 04/12/24 Range/Units 04:29 06:32 RBC (4.30-5.90) m/uL Hgb (13.0-17.5) gm/dL Hct (39.0-53.0) % MCV (80.0-100.0) fL RDW (11.5-15.5) % Plt Count (150-450) k/uL Lymphocytes # (Manual) (1.0-4.8) k/uL Chloride 117 H (98-107) mmol/L Carbon Dioxide 16 L (22-30) mmol/L BUN 25 H (9-20) mg/dL Creatinine 1.92 H (0.66-1.25) mg/dL Glucose 123 H (74-99) mg/dL POC Glucose (mg/dL) 122 H (70-110) mg/dL Calcium 8.3 L (8.4-10.2) mg/dL Microbiology - Last 24 Hours (Table) 04/10/24 12:33 Blood Culture - Preliminary Blood Assessment and Plan Plan: Acute febrile illness with development of a new opacity along the right lateral chest wall. Rule out pneumonia with developing effusion. Rule out underlying connective tissue disease/vasculitis with interval progression of his disease as the patient has noncaseating glaucomatous changes along with cavitary pulmonary infiltrates as noted on previous CAT scan and PET scan imaging and a wedge biopsy of the lung has confirmed the findings. Status post fall Hypotension, recovered Encephalopathy, currently under investigation the CAT scan of the brain is negative Abnormal troponins, rule out non-ST segment elevation myocardial infarction, versus occult infection/sepsis, essentially a type II ischemia Chronic kidney disease stage III Anion gap metabolic acidosis History of hypertension. History of hyperlipidemia. History of diabetes mellitus. History of pulmonary embolism, the patient is maintained on anticoagulation with Eliquis 2.5 mg p.o. twice a day History of rheumatoid arthritis. Multiple bilateral pulmonary nodules, consistent with rheumatoid pulmonary nodules. History of diverticular disease. Plan: Change IV fluids to bicarb infusion at rate of 100 cc an hour Blood work for rheumatoid factor, CHERYLE, SHONDA screen, p-ANCA, c-ANCA Blood work for sed rate CAT scan of the chest, without contrast Continue IV cefepime Monitor renal function Will cover this patient with a higher dose of Solu-Medrol 40 mg every 8 hours as stopped oral prednisone Monitor blood sugars Keep the patient n.p.o. for now Will utilize anticoagulation if the patient is unable to take Eliquis Will continue to follow condition is critical and will continue to make further recommendations based on his progress. This evaluation was done more than 30 minutes. Time with Patient: Greater than 30
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
--- NOTE | 2024-04-12 14:43 | US ---
EXAMINATION TYPE: US carotid duplex BILAT DATE OF EXAM: 04/12/2024 COMPARISON: 07/11/22 CLINICAL INDICATION: Male, 79 years old with history of History of bilateral ICA stenosis; bilateral ICA stenosis ICU patient unconscious. No hx obtained TECHNIQUE: Grayscale, color Doppler and spectral Doppler evaluation of the bilateral carotid systems and vertebral arteries.Indirect Doppler criteria was utilized. FINDINGS: EXAM MEASUREMENTS: RIGHT: Peak Systolic Velocity (PSV) cm/sec ----- Right CCA: 75.5 ----- Right ICA: 194.2 ----- Right ECA: 161.7 ICA/CCA ratio: 2.6 RIGHT: End Diastole cm/sec ----- Right CCA: 9.0 ----- Right ICA: 52.5 ----- Right ECA: 161.7 LEFT: Peak Systolic Velocity (PSV) cm/sec ----- Left CCA: 72.5 ----- Left ICA: 100.0 ----- Left ECA: 143.8 ICA/CCA ratio: 1.4 LEFT: End Diastole cm/sec ----- Left CCA: 12.8 ----- Left ICA: 30.5 ----- Left ECA: 13.7 VERTEBRALS (direction of flow): Right Vertebral: Antegrade Left Vertebral: Antegrade Rhythm: Normal EXCELLENCE MANAGER NOTES: plaque seen in bilateral bulbs and prox ICA's. Right CCA slightly limited due to p t positioning. IMPRESSION: Right: 50-69% stenosis of the carotid bifurcation. 50 to 69% stenosis=ICA PSV of 125 to 230 cm/s: ration 2.0 - 4.0: ICA EDV 40-100 cm/s. Left: Less than 50% stenosis of the carotid bifurcation. Normal (no stenosis)=ICA PSV < 125 cm/s: rat io < 2.0: ICA EDV<40 cm/s. Criteria for Assigning % of Stenosis / Diameter reduction (Estimation based on the indirect measurements of the internal carotid artery velocities (ICA PSV). 1. Normal (no stenosis)=ICA PSV < 125 cm/s: ratio < 2.0: ICA EDV<40 cm/s. 2. Less than 50% stenosis=ICA PSV < 125 cm/s: ratio < 2.0: ICA EDV<40 cm/s. 3. 50 to 69% stenosis=ICA PSV of 125 to 230 cm/s: ration 2.0 ? 4.0: ICA EDV 40-100 cm/s. 4. Greater than 70% stenosis to near occlusion= ICA PSV > 230 cm/s: ratio > 4.0: ICA EDV > 100 cm/s. 5. Near occlusion= ICA PSV velocities may be low or undetectable: variable ratio and ICA EDV. 6. Total occlusion=unable to detect flow. [facility], , 04/12/2024 2:40 PM
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
[2024-04-12 16:22] LABS: Anti-Smith Ab Interp Negative (Negative)
[2024-04-12 18:56] LABS: Glucose,Whole Blood 166 mg/dL (70-110)
[2024-04-12 19:41] LABS: Glucose,Whole Blood 172 mg/dL (70-110)
[2024-04-12] MEDS: GABAPENTIN 300 MG CAP PO SCH (19:46)
[2024-04-12 20:04] LABS: Glucose,Whole Blood 169 mg/dL (70-110)
[2024-04-12] MEDS: DEXMEDETOMIDINE/0.9% NACL(PMX) 400 MCG in EMPTY BAG 1 BAG IV SCH (20:45)
[2024-04-12] MEDS: DEXTROSE 5% IN WATER 100 ML with AMIODARONE 150 MG IV ONE (20:54)
[2024-04-12] MEDS: AMIODARONE 360 MG in DEXTROSE 5% IN WATER 200 ML IV ONE (21:03)
[2024-04-13] MEDS: ACETAMINOPHEN IV (For NPO) 1,000 MG in EMPTY BAG 1 BAG IVPB ONE (01:11)
[2024-04-13] MEDS: AMIODARONE 450 MG in DEXTROSE 5% IN WATER 250 ML IV SCH (02:45)
[2024-04-13 06:21] LABS: Glucose,Whole Blood 217 mg/dL (70-110)
[2024-04-13 06:58] LABS: African American GFR (CKD) 42 (>60 ml/min/1.73 sqM); Anion Gap 5 mmol/L; Blood Urea Nitrogen 21 mg/dL (9-20); Calcium 7.6 mg/dL (8.4-10.2); Carbon Dioxide 23 mmol/L (22-30); Chloride 110 mmol/L (98-107); Glucose 203 mg/dL (74-99); Non-African American GFR(CKD) 36 (>60 ml/min/1.73 sqM); Potassium 3.7 mmol/L (3.5-5.1); Sodium 138 mmol/L (137-145)
--- NOTE | 2024-04-13 07:40 | XR ---
EXAMINATION TYPE: XR chest 1V portable DATE OF EXAM: 04/13/2024 COMPARISON: 04/10/2024 HISTORY: Pain TECHNIQUE: Single frontal view of the chest is obtained. FINDINGS: Bilateral airspace disease with pleural effusion. The heart is enlarged. Atherosclerotic c hange aorta. Osseous structures demonstrate degenerative change of the spine. IMPRESSION: Diffuse bilateral airspace disease and pleural effusion could represent diffuse pneumoni a, ARDS or pulmonary edema. [facility], , 04/13/2024 7:38 AM
[2024-04-13 07:47] LABS: Anisocytosis Slight; HCT 26.8 % (39.0-53.0); HGB 8.5 gm/dL (13.0-17.5); Hypochromasia Marked; MCH 33.5 pg (25.0-35.0); MCHC 31.9 g/dL (31.0-37.0); MCV 105.2 fL (80.0-100.0); Macrocytosis Moderate; Mean Platelet Volume 8.1; Poikilocytosis Slight; RBC 2.55 m/uL (4.30-5.90); WBC 6.2 k/uL (3.8-10.6)
[2024-04-13 07:54] LABS: Platelet Count 75 k/uL (150-450)
[2024-04-13 11:15] LABS: Glucose,Whole Blood 203 mg/dL (70-110)
[2024-04-13 11:50] LABS: INR 1.2 (<1.2); Partial Thromboplastin Time 30.3 sec (22.0-30.0); Prothrombin Time 12.4 sec (10.0-12.5)
[2024-04-13] MEDS: methylPREDNISolone SOD SUCCI 125 MG/2 ML VIAL IV SCH (12:35)
[2024-04-13] MEDS: PIPERACILLIN-TAZOBACTAM 3.375 GM in SODIUM CHLORIDE 0.9% 100 ML IVPB SCH (12:35)
[2024-04-13] MEDS: HEPARIN SOD,PORK IN 0.45% NACL 25,000 UNIT in 0.45% NACL 1 250ML.BAG IV SCH (12:44)
--- NOTE | 2024-04-13 12:49 | P.PN ---
Subjective patient is seen for follow-up for acute kidney injury. Patient remains confused. Poor oral intake. Renal function has improved with creatinine down to 1.7. Urine output at 50-80 mL per hour. Objective - Vital Signs Vital signs: Vital Signs Temp 98.8 F 04/13/24 08:00 Pulse 142 H 04/13/24 11:00 Resp 28 H 04/13/24 11:00 BP 137/70 04/13/24 11:00 Pulse Ox 88 L 04/13/24 11:00 FiO2 Intake & Output 04/12/24 04/13/24 04/13/24 18:59 06:59 18:59 Intake Total 1100 1660.832 616.664 Output Total 760 900 325 Balance 340 760.832 291.664 Weight 90.9 kg 90.6 kg Intake: IV 300 1600 585 0.9 at KVO 25 ACETAMINOPHEN IV (For NPO 400 ) 1,000 mg In Empty Bag 1 bag @ 400 mls/hr IVPB ONCE ONE Rx#:[id number] Dextrose 5% in Water 1, 1100 560 000 ml @ 60 mls/hr IV . [id number] DAVID with Sodium Bicarb (1 Meq/ml) 150 ml Rx#:[id number] Sodium Chloride 0.9% 1, 300 000 ml @ 75 mls/hr IV . [id number] DAVID Rx#:[id number] cefipime 100 Intake, IV Titration 800 60.832 31.664 Amount Cefepime 2 gm In Sodium 100 Chloride 0.9% 100 ml @ 25 mls/hr IVPB Q12H DAVID Rx# :[id number] Dexmedetomidine/0.9% NaCl 60.832 31.664 (Pmx) 400 mcg In Empty Bag 1 bag @ 0.2 MCG/KG/HR 4.545 mls/hr IV .Q22H1M DAVID Rx#:[id number] Dextrose 5% in Water 1, 700 000 ml @ 60 mls/hr IV . [id number] DAVID with Sodium Bicarb (1 Meq/ml) 150 ml Rx#:[id number] Output: Urine 760 900 325 Other: Voiding Method Indwelling Catheter Indwelling Catheter Indwelling Catheter - Exam patient is comfortable. Does not communicate much. Examination of the heart S1 and S2 Examination of the lungs bilateral breath sounds are heard Abdomen is soft nontender Examination of lower extremitiesshows no significant edema - Labs CBC & Chem 7: 04/13/24 07:24 04/13/24 06:19 Labs: Abnormal Lab Results - Last 24 Hours (Table) 04/12/24 04/12/24 04/12/24 Range/Units 10:57 10:57 18:54 RBC (4.30-5.90) m/uL Hgb (13.0-17.5) gm/dL Hct (39.0-53.0) % MCV (80.0-100.0) fL RDW (11.5-15.5) % Plt Count (150-450) k/uL ESR 45 H (0-20) mm/Hr INR (<1.2) APTT (22.0-30.0) sec Chloride (98-107) mmol/L BUN (9-20) mg/dL Creatinine (0.66-1.25) mg/dL Glucose (74-99) mg/dL POC Glucose (mg/dL) 166 H (70-110) mg/dL Calcium (8.4-10.2) mg/dL Rheumatoid Factor 270 H (0-15) IU/mL 04/12/24 04/12/24 04/13/24 Range/Units 19:39 20:03 06:19 RBC (4.30-5.90) m/uL Hgb (13.0-17.5) gm/dL Hct (39.0-53.0) % MCV (80.0-100.0) fL RDW (11.5-15.5) % Plt Count (150-450) k/uL ESR (0-20) mm/Hr INR (<1.2) APTT (22.0-30.0) sec Chloride 110 H (98-107) mmol/L BUN 21 H (9-20) mg/dL Creatinine 1.74 H (0.66-1.25) mg/dL Glucose 203 H (74-99) mg/dL POC Glucose (mg/dL) 172 H 169 H (70-110) mg/dL Calcium 7.6 L (8.4-10.2) mg/dL Rheumatoid Factor (0-15) IU/mL 04/13/24 04/13/24 04/13/24 Range/Units 06:20 07:24 11:13 RBC 2.55 L (4.30-5.90) m/uL Hgb 8.5 L (13.0-17.5) gm/dL Hct 26.8 L (39.0-53.0) % MCV 105.2 H (80.0-100.0) fL RDW 17.0 H (11.5-15.5) % Plt Count 75 L (150-450) k/uL ESR (0-20) mm/Hr INR 1.2 H (<1.2) APTT 30.3 H (22.0-30.0) sec Chloride (98-107) mmol/L BUN (9-20) mg/dL Creatinine (0.66-1.25) mg/dL Glucose (74-99) mg/dL POC Glucose (mg/dL) 217 H (70-110) mg/dL Calcium (8.4-10.2) mg/dL Rheumatoid Factor (0-15) IU/mL 04/13/24 Range/Units 11:14 RBC (4.30-5.90) m/uL Hgb (13.0-17.5) gm/dL Hct (39.0-53.0) % MCV (80.0-100.0) fL RDW (11.5-15.5) % Plt Count (150-450) k/uL ESR (0-20) mm/Hr INR (<1.2) APTT (22.0-30.0) sec Chloride (98-107) mmol/L BUN (9-20) mg/dL Creatinine (0.66-1.25) mg/dL Glucose (74-99) mg/dL POC Glucose (mg/dL) 203 H (70-110) mg/dL Calcium (8.4-10.2) mg/dL Rheumatoid Factor (0-15) IU/mL Microbiology - Last 24 Hours (Table) 04/10/24 12:33 Blood Culture - Preliminary Blood Assessment and Plan Assessment: 1. CHAITANYA due to ATN from hypotension/shock. Presented creatinine 2.4 and stable. UA shows hyaline casts mild protein. 2. Hypotension rule out sepsis 3. CKD Stage 3a. Baseline creatinine 1.2-1.4 mg/dL. Etiology is diabetic kidney disease 4. Mild hyponatremia with sodium 132-Improved 5. Fall 6. HTN with CKD 7. Type 2 Diabetes 8. Metabolic acidosis non-gap secondary to acute kidney injury, maintained on IV bicarb 9. 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 Plan: continue bicarb drip, decrease the rate. Switch to Ringer lactate in a.m. Repeat labs in a.m. Continue with antibiotics
--- NOTE | 2024-04-13 13:27 | P.PN ---
Subjective Progress Note Date: 04/13/24 79-year-old male with a history of diabetes, deafness, hyperlipidemia, hypertension, pulmonary embolism, rheumatoid arthritis, and multiple bilateral pulmonary nodules, secondary to rheumatoid arthritis. The patient resides at [facility], and apparently fell twice, and was brought into the [facility] department, to be evaluated. He is seen down in the emergency department, room 16. He is currently on 3 L nasal cannula. He is getting saline at 75 cc an hour. He has received 3 L of fluid bolus, and unfortunately his blood pressure continues to be low at 75/45. The patient is a bit lethargic and sleepy, not a particular good historian. He was not sure why he was in the emergency department. He is not even sure why he was at [facility]. Anyway, the patient is evaluated. The patient will need further monitoring and management, and will be admitted to the intensive care unit. He likely will need some norepinephrine, for his low blood pressure since he has not responded to fluids. In addition, we will have cardiology see him given the fact that there is some mild EKG changes, as well as an elevated troponin. He may be a patient with a non-ST segment elevation myocardial infarction. Current labs include a white count 13.9, hemoglobin 9.2, macro 34.2, and a platelet count of 125,000. Sodium 132, potassium 4.6, chlorides 106, CO2 22, BUN 30, creatinine 2.46. Troponin was 0.522. N-terminal proBNP was 1030. Albumin was 2.6. He tested negative for influenza, RSV, and coronavirus. Chest x-ray showed no acute cardiopulmonary disease. CT scan of the brain, cervical spine, and x-rays of the pelvis, are all negative. The patient was placed on cefepime by the primary service. A procalcitonin level is pending. On 04/12/2024, the patient remains encephalopathic and occasionally agitated. Earlier this morning, prior to my arrival, the patient was given Haldol 4 mg IV and morphine 4 mg IV and currently is quite lethargic and obtunded. He remains on 2 L of oxygen by nasal cannula with a pulse ox of 99%. The patient presented to us with episodes of fever and the exact source is not clear. The chest x-ray shows a new onset opacity in the right lateral lung field and based on that, a CAT scan of the chest will be ordered. Meanwhile, as mentioned earlier, the patient has areas of bilateral cavitating pulmonary infiltrates and has been investigated in the past via bronchoscopy that yielded no microbial growth or malignancy. 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 Fungal stains and the mycobacterial stains came back negative. There was numerous large caseating adenomas with acute on chronic inflammatory changes and this was thought to be related to an underlying connective tissue disease. The patient has been maintained on prednisone 10 mg p.o. daily on outpatient basis. On today's evaluation, the sodium levels at 140, bicarbonate 16 with a BUN of 25 and a creatinine of 1.9. Noted the patient presented to us with a creatinine of 2.4 he does not an underlying chronic kidney disease. The risk is at 6.8 with hemoglobin 8.4 and a platelet count of 77. The patient has fluctuating platelet counts over the past 1 year. He remains on IV cefepime. He is also on anticoagulation with Eliquis 2.5 mg p.o. twice a day. He is off pressors. The procalcitonin level was at 0.6. On 04/13/2024, patient is being seen for a follow-up. The patient remains lethargic, confused, nonresponsive. Sitter is at the bedside as the patient is occasionally getting agitated and for that reason the patient was started on Precedex and Precedex is running at 0.2 mcg/kg/h. Unable to communicate at this point in time as the patient is quite obtunded. In terms of his respiratory status, the patient remains on oxygen and currently is on 7 L of O2 nasal cannula with a pulse ox of 99%. The repeat chest x-ray from today is showing diffuse bilateral airspace disease with pleural effusions loculated along the right pleural border. CAT scan of the chest was also obtained yesterday and there are some new changes compared to the earlier chest x-ray and CAT scan findings. In summary, there is a loculated right apical pleural effusion along with loculated bilateral pleural effusion along the pleural borders more so on the right. There is increase in the size of the pleural nodularity in the right lung with increased in the size of the masslike consolidation in the left lung base. Possibility of a aspiration cannot be completely ruled out as the patient had some opacities and secretions within the trachea and right mainstem bronchus. There is also evidence of cardiomegaly, hepatic cirrhosis and diverticulosis. The patient is hemodynamically stable on no pressors. Overnight, the patient went into atrial fibrillation with rapid ventricular response. Started on amiodarone protocol which is running at 0.5 mg/min and the patient's rhythm is back to sinus. BUN is 21 with a creatinine of 1.7 and sodium levels of 138 and a potassium level of 3.7. White cell count is 6.2 with a hemoglobin of 8.5. In terms of the rheumatologic profile, the patient's rheumatoid factor came back elevated at 270. Antinuclear antibodies, anti-Bell antibodies, anti-PAGINATOR antibodies came back negative. Awaiting the p-ANCA and c- ANCA titers. Based on his underlying aspiration that occurred yesterday, the patient will be switched to IV Zosyn. I am also going to start the patient on empiric treatment with systemic steroids and the patient was started on IV Solu- Medrol 60 mg every 6 hours. CAT scan of the brain was also done yesterday that showed no acute intracranial process and no nonspecific white matter changes. Doppler of the carotids completed yesterday showed 50 to 70% stenosis in the carotid bifurcation of the right otherwise negative. Objective - Vital Signs Vital signs: Vital Signs Temp 98.8 F 04/13/24 08:00 Pulse 105 H 04/13/24 10:00 Resp 12 04/13/24 10:00 BP 157/90 04/13/24 10:00 Pulse Ox 98 04/13/24 10:00 FiO2 Intake & Output 04/12/24 04/13/24 04/13/24 18:59 06:59 18:59 Intake Total 1100 1660.832 437.233 Output Total 760 900 250 Balance 340 760.832 187.233 Weight 90.9 kg 90.6 kg Intake: IV 300 1600 415 0.9 at KVO 15 ACETAMINOPHEN IV (For NPO 400 ) 1,000 mg In Empty Bag 1 bag @ 400 mls/hr IVPB ONCE ONE Rx#:[id number] Dextrose 5% in Water 1, 1100 400 000 ml @ 100 mls/hr IV . [id number] DAVID with Sodium Bicarb (1 Meq/ml) 150 ml Rx#:[id number] Sodium Chloride 0.9% 1, 300 000 ml @ 75 mls/hr IV . [id number] DAVID Rx#:[id number] cefipime 100 Intake, IV Titration 800 60.832 22.233 Amount Cefepime 2 gm In Sodium 100 Chloride 0.9% 100 ml @ 25 mls/hr IVPB Q12H DAVID Rx# :[id number] Dexmedetomidine/0.9% NaCl 60.832 22.233 (Pmx) 400 mcg In Empty Bag 1 bag @ 0.2 MCG/KG/HR 4.545 mls/hr IV .Q22H1M DAVID Rx#:[id number] Dextrose 5% in Water 1, 700 000 ml @ 100 mls/hr IV . [id number] DAVID with Sodium Bicarb (1 Meq/ml) 150 ml Rx#:[id number] Output: Urine 760 900 250 Other: Voiding Method Indwelling Catheter Indwelling Catheter Indwelling Catheter - Exam Patient has demonstrating diminished level of consciousness, currently on Precedex. Unable to communicate. Unable to follow commands. Quite sleepy and lethargic.. Occasional agitation was noted and the patient was placed on Precedex. And there is a sitter at the bedside. Currently, he is on 7 L of oxygen by nasal cannula. HEENT examination is grossly unremarkable. Mucous membranes are moist. No oral lesions. Neck supple. Full range of motion. No adenopathy thyromegaly or neck vein distention. The patient has a short neck with crowding of the posterior pharynx Cardiovascular examination reveals regular rhythm rate. S1-S2 normal. No S3 or S4. No discernible murmur noted. Lungs reveal clear breath sounds. Breath sounds are equal bilaterally. No adventitious lung sounds including wheezes rhonchi or crackles. Abdomen soft bowel sounds are heard. No masses or tenderness. Extremities are intact. No cyanosis clubbing or edema. Skin is without rash or lesion. Neurologic examination is brief but nonfocal. Pupils are equal reactive to light. No focal neurological deficits. No cranial nerve deficits. No facial asymmetry. Unable to do a motor and sensory evaluation. Gait cannot be evaluated. The patient is sedated currently on Precedex. - Labs CBC & Chem 7: 04/13/24 07:24 04/13/24 06:19 Labs: Abnormal Lab Results - Last 24 Hours (Table) 04/12/24 04/12/24 04/12/24 Range/Units 10:57 10:57 12:16 RBC (4.30-5.90) m/uL Hgb (13.0-17.5) gm/dL Hct (39.0-53.0) % MCV (80.0-100.0) fL RDW (11.5-15.5) % Plt Count (150-450) k/uL ESR 45 H (0-20) mm/Hr Chloride (98-107) mmol/L BUN (9-20) mg/dL Creatinine (0.66-1.25) mg/dL Glucose (74-99) mg/dL POC Glucose (mg/dL) 124 H (70-110) mg/dL Calcium (8.4-10.2) mg/dL Rheumatoid Factor 270 H (0-15) IU/mL 04/12/24 04/12/24 04/12/24 Range/Units 18:54 19:39 20:03 RBC (4.30-5.90) m/uL Hgb (13.0-17.5) gm/dL Hct (39.0-53.0) % MCV (80.0-100.0) fL RDW (11.5-15.5) % Plt Count (150-450) k/uL ESR (0-20) mm/Hr Chloride (98-107) mmol/L BUN (9-20) mg/dL Creatinine (0.66-1.25) mg/dL Glucose (74-99) mg/dL POC Glucose (mg/dL) 166 H 172 H 169 H (70-110) mg/dL Calcium (8.4-10.2) mg/dL Rheumatoid Factor (0-15) IU/mL 04/13/24 04/13/24 04/13/24 Range/Units 06:19 06:20 07:24 RBC 2.55 L (4.30-5.90) m/uL Hgb 8.5 L (13.0-17.5) gm/dL Hct 26.8 L (39.0-53.0) % MCV 105.2 H (80.0-100.0) fL RDW 17.0 H (11.5-15.5) % Plt Count 75 L (150-450) k/uL ESR (0-20) mm/Hr Chloride 110 H (98-107) mmol/L BUN 21 H (9-20) mg/dL Creatinine 1.74 H (0.66-1.25) mg/dL Glucose 203 H (74-99) mg/dL POC Glucose (mg/dL) 217 H (70-110) mg/dL Calcium 7.6 L (8.4-10.2) mg/dL Rheumatoid Factor (0-15) IU/mL Microbiology - Last 24 Hours (Table) 04/10/24 12:33 Blood Culture - Preliminary Blood Assessment and Plan Plan: Acute febrile illness with development of a new opacity along the right lateral chest wall. Rule out pneumonia with developing effusion. Rule out underlying connective tissue disease/vasculitis with interval progression of his disease as the patient has noncaseating glaucomatous changes along with cavitary pulmonary infiltrates as noted on previous CAT scan and PET scan imaging and a wedge biopsy of the lung has confirmed the findings. Noted to follow-up CAT scan of the chest showed interval progression of the loculated pleural effusion and there is a loculated pocket in the right apex in addition to loculation along t he right lateral chest border and some on the left in addition to pleural nodularity and consolidation of left lung base. Superimposed aspiration pneumonia cannot be completely excluded. Status post fall Hypotension, recovered Encephalopathy, currently under investigation the CAT scan of the brain is negative, currently on Precedex to control agitation. Abnormal troponins, rule out non-ST segment elevation myocardial infarction, versus occult infection/sepsis, essentially a type II ischemia Chronic kidney disease stage III Anion gap metabolic acidosis, improved History of hypertension. History of hyperlipidemia. History of diabetes mellitus. History of pulmonary embolism, the patient is maintained on anticoagulation with Eliquis 2.5 mg p.o. twice a day. The previous episode of pulm embolism was back in 2021 History of rheumatoid arthritis., Elevated rheumatoid factor Multiple bilateral pulmonary nodules, consistent with rheumatoid pulmonary nodules. History of diverticular disease. Paroxysmal atrial fibrillation with rapid ventricular response, currently back into normal sinus rhythm on amiodarone. Plan: Will discontinue the bicarb infusion and put the patient on D5 half-normal saline at rate of 75 cc an hour Blood work for rheumatoid factor, CHERYLE, SHONDA screen, was completed and the patient was positive for rheumatoid factor Awaiting p-ANCA and awaiting c-ANCA CAT scan of the chest, without contrast was noted and there is suspicion for superimposed aspiration Continue IV antibiotics and the patient will be switched to IV Zosyn Start the patient on empiric steroids 60 mg IV Solu-Medrol every 6 hours Monitor renal function Aspiration precautions Monitor blood sugars Keep the patient n.p.o. for now Start the patient on IV heparin specimen previous history of pulm embolism and paroxysmal atrial fibrillation. Will need central line and this will be established today Will continue to follow condition is critical and will continue to make further recommendations based on his progress. This evaluation was done more than 30 minutes. Time with Patient: Greater than 30
[2024-04-13] MEDS: DEXTROSE 5%-0.45% NACL 1,000 ML IV SCH (14:00)
[2024-04-13 14:32] LABS: C-ANCA <1:20 Titer (<1:20)
--- NOTE | 2024-04-13 14:42 | P.PN ---
Progress Note - Text Progress Note Date: 04/13/24 This is a pleasant 79 years old male who was transferred from [facility] for multiple falls in 24 hours. Patient currently cannot provide information it was obtained from staff, records and at bedside As per he was recently discharged from [facility] about 1 week earlier for CHF, acute kidney injury and pneumonia. These are per patient. On admission patient was found to be hypotensive, blood pressure 109/61 went down to 63/41, currently 85/40 Patient currently cannot provide information and he is nonverbal. at bedside There is very small pressure ulcers in the lower back. No tachypnea, abdomen looks soft. Urine catheter was placed in the hospital with clear urine. No evidence of suprapubic tenderness. No other rash. He has small abrasion on the right arm. Pupils are equal and reactive to light. Neck looks supple. No leg edema. On admission he had low-grade fever of 100.5 Labs reviewed he has leukocytosis of 13.9, hemoglobin 11.2, low platelet count 125, creatinine 2.4 with baseline 1.3-1.6 Liver enzymes, INR were unremarkable Influenza A and type B, RSV, SARS (coronavirus) are and detected Urinalysis showed glucosuria but no ketonuria Elevated troponin but is chronically elevated proBNP is slightly elevated 1030 CT of the head and neck is negative for acute process in either Pelvic x-ray is negative for acute process or fracture or dislocation EKG shows sinus rhythm at [address]-T changes Patient was received 3 L in the emergency room and started on normal sinus 75 mL/h also on ceftriaxone. incident response engineer 18 was called and patient was transferred to the ICU and he was started on Levophed On review of the records: Previous CT of the chest showing scattered cavitary lesions and pulmonary nodules with left lower lung suspected mass. He s/p bronchoscopy on 10/04/2023 was negative cytology for malignant cells. Also patient had PET scan on 10/23/23 showing new uptake in the right pleural costophrenic angle and new punctate area within mediastinum with right peribronchial lymph nodes and multiple stable pulmonary nodules and nonspecific changes posterior to the coccyx and left pubic ramus could be infection, injury versus metastasis. Status post wedge resection of the left lung on 10/2023 Patient is more awake today, sitting in bed, trying to eat his breakfast, at bedside Look patient looks pleasant, slightly agitated and anxious, he follows command. He looks calm and relaxed. He denies significant tachypnea however he still has mild heavy breathing with no cough or chest pain Abdomen soft with no symptoms Valiente catheter in place Levophed was off since the night before Getting IV fluid normal saline at 75 mL/h 85. WBC normal 9.2, hemoglobin slightly low at 9.8. Creatinine slightly lower at 2.3. It was 2.4 yesterday Creatinine slightly low, has thrombocytopenia at 85 And remains on cefepime. Pro- Calcitonin was elevated 0.61 04/12 Patient today remains in the ICU, his mentation got worse, he is not answering questions, not following commands, staff does not feel safe to give him pills orally. He has restraints and safety consultant at bedside Yesterday morning he was more awake sitting up in bed. He is on Eliquis added by career resource specialist. CT of the brain on admission was negative for acute process. Will going to consult neurology service for this purpose. His infection is improving with his leukocytosis is down, fever stopped WBC 6.8, hemoglobin 9.4, platelet count 77, creatinine trending down 2.4 down to 1.9, with baseline 1.3-1.6. Blood pressure on the low side, fever subsided. Blood culture still pending Currently on ceftriaxone and normal saline. April 13: ICU. Patient vomited overnight. Aspirated. Has been in and out of A-fib with rapid ventricular rate. Drips include IV amiodarone, Precedex, and bicarbonate. Patient on 7 L high flow. Intermittently agitated. Patient's arms are bruising and some weeping. Patient lethargic. Not able to communicate. Chest x-ray shows bilateral infiltrates Active Medications Acetaminophen (Acetaminophen Tab 325 Mg Tab) 650 mg PO Q6HR PRN PRN Reason: Fever Last Admin: 04/10/24 23:46 Dose: 650 mg Dextrose/Water (Dextrose 50% Syringe 50 Ml) 25 ml IVP PER PROTOCOL PRN; Protocol PRN Reason: Hypoglycemia Dextrose/Water (Dextrose 50% Syringe 50 Ml) 50 ml IVP PER PROTOCOL PRN; Protocol PRN Reason: Hypoglycemia Famotidine (Famotidine 20 Mg Tab) 10 mg PO Q12HR DAVID Last Admin: 04/13/24 08:49 Dose: Not Given Gabapentin (Gabapentin 300 Mg Cap) 300 mg PO BID DAVID Last Admin: 04/13/24 08:49 Dose: Not Given Haloperidol Lactate (Haloperidol Lactate 5 Mg/Ml 1 Ml Vial) 4 mg IVP Q4HR PRN PRN Reason: Agitation or Acute Psychosis Last Admin: 04/12/24 16:48 Dose: 4 mg Haloperidol Lactate (Haloperidol Lactate 5 Mg/Ml 1 Ml Vial) 8 mg IVP Q4HR PRN PRN Reason: Agitation or Acute Psychosis Last Admin: 04/12/24 02:00 Dose: 8 mg Heparin Sodium (Porcine) (Heparin Sodium 1,000 Un/Ml (10ml Vl)) 0 unit IV PER PROTOCOL PRN; Protocol PRN Reason: Low PTT Norepinephrine Bitartrate 4 mg (/ Sodium Chloride) 254 mls @ 9.851 mls/hr IV .Q24H DAVID; Protocol Last Admin: 04/13/24 08:47 Dose: Not Given Amiodarone HCl 450 mg/ (Dextrose/Water) 250 mls @ 16.667 mls/hr IV .Q15H DAVID; Protocol Stop: 04/13/24 20:59 Last Admin: 04/13/24 02:45 Dose: 0.5 mg/min, 16.667 mls/hr Dexmedetomidine HCl 400 mcg/ (IV Solution) 100 mls @ 4.545 mls/hr IV .Q22H1M S ; Protocol Last Titration: 04/13/24 13:15 Dose: 0.1 mcg/kg/hr, 2.273 mls/hr Piperacillin Sod/Tazobactam (Sod 3.375 gm/ Sodium Chloride) 100 mls @ 25 mls/hr IVPB Q8H DAVID; Protocol Last Admin: 04/13/24 12:35 Dose: 25 mls/hr Heparin Sodium/Sodium Chloride (25,000 unit/ Sodium Chloride) 250 mls @ 10.002 mls/hr IV .Q24H DAVID; Protocol Last Admin: 04/13/24 12:44 Dose: 11.04 units/kg/hr, 10.002 mls/hr Dextrose/Sodium Chloride (Dextrose 5%-1/2ns Iv Soln) 1,000 mls @ 75 mls/hr IV .[id number] DAVID Last Admin: 04/13/24 14:00 Dose: 75 mls/hr Insulin Aspart (Insulin Aspart (Novolog) 100 Unit/Ml Vial) 0 unit SQ ACHS [facility]; Protocol Last Admin: 04/13/24 12:35 Dose: 4 unit Methylprednisolone Sodium Succinate (Methylprednisolone Sod Succi 125 Mg/2 Ml Vial) 60 mg IV Q6HR [facility] Last Admin: 04/13/24 12:35 Dose: 60 mg Morphine Sulfate (Morphine Sulfate 4 Mg/Ml Syringe) 4 mg IV Q4HR PRN PRN Reason: Severe Pain (Scale 7 to 10) Last Admin: 04/13/24 11:36 Dose: 4 mg Naloxone HCl (Naloxone 0.4 Mg/Ml 1 Ml Vial) 0.2 mg IV Q2M PRN PRN Reason: Opioid Reversal Ondansetron HCl (Ondansetron 4 Mg/2 Ml Vial) 4 mg IVP Q8HR PRN PRN Reason: Nausea And Vomiting Pantoprazole Sodium (Pantoprazole 40 Mg/10 Ml Vial) 40 mg IV DAILY [facility] Last Admin: 04/13/24 09:44 Dose: 40 mg On examination: VITAL SIGNS: [98.5, 142-87, 20, 128 x 64, 99% 7 L] GENERAL APPEARANCE: BMI 28.7, laying in bed, lethargic. Bruising and some weeping in both the arms HEENT: Normal external appearance of nose and ear. Oral cavity normal EYES: Pupils equal. Conjunctiva normal. NECK: JVD not raised. Mass not palpable. RESPIRATORY: Respiratory effort increased. Depressed breath sounds. CARDIOVASCULAR: First and second sounds normal. No edema. ABDOMEN: Soft. Liver and spleen not palpable. No tenderness. No mass palpable. PSYCHIATRY: Lethargic. Arousable. INVESTIGATIONS, reviewed in the clinical context: Carotid Doppler: No significant stenosis Chest CT [April 12] trace left right pleural effusion. Loculated appearance with largest pocket in the right apex. Scattered areas of atelectasis. Increased size of left lower lobe masslike consolidation 3.8 cm. Bilateral pulmonary nodules. Splenic flexure diverticulosis. Hepatic cirrhosis Chest x-ray film personally reviewed by me-[April 13] bilateral infiltrates April 13, 2024: White count 6.2 hemoglobin 8.5 platelets 95 sodium 138 pota ssium 3.7 BUN 21 creatinine 1.74 April 10: White count 13.9 hemoglobin 11.2 platelets 125 sodium 132 potassium 4.6 BUN 30 creatinine 2.46 Troponin I 0.306. Procalcitonin 0.61 TSH 3.7 Influenza type A, type B, RSV, COVID-19: Not detected Assessment: -Sepsis with fever and leukocytosis, bilateral multilobar pneumonia IV Zosyn Pulmonary following -Acute hypoxic respiratory failure secondary to pneumonia: Slow to respond Currently on high flow oxygen 7 L -Septic shock-better Patient was on pressors. -Paroxysmal atrial fibrillation rapid ventricular rate. Currently on IV amiodarone. IV heparin -IV heparin monitoring Follow PTT -Right and bilateral pulmonary nodules with abnormal PET scan with increased uptake in the left lower lung and mediastinal lymph node. Status post wedge resection of the left lower lung on 10/2023. 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 Neurology consulted -Multiple falls at [facility] secondary to above -Chronic rheumatoid arthritis Pain control control as needed -Diabetes mellitus type II chronically requiring insulin Follow Accu-Cheks -Hypertension Blood pressure been running on the lower side. Both Tenormin and amlodipine have been held. -Hyperlipidemia Lipitor -Sigmoid diverticulosis, asymptomatic -Hepatic cirrhosis on CT scan -Chronic hard of hearing -Chronic PE Was on Eliquis outpatient -DNR Prognosis remains guarded. Continue current medications. Follow-up with multiple consultants
[2024-04-13] MEDS: LORazepam 2 MG/ML INJ IV STA (16:22)
[2024-04-13 18:11] LABS: Glucose,Whole Blood 233 mg/dL (70-110)
--- NOTE | 2024-04-13 19:42 | XR ---
EXAMINATION TYPE: XR chest 1V portable DATE OF EXAM: 04/13/2024 7:24 PM CLINICAL INDICATION: Male, 79 years old with history of dobhoff placement; [facility] COMPARISON: Chest radiographs from 04/13/2024. TECHNIQUE: XR chest 1V portable Frontal view of the chest. FINDINGS: Lungs/Pleura: Similar multifocal airspace opacities and blunting of the costophrenic angles. No evide nce of pneumothorax. Pulmonary vascularity: Unremarkable. Heart/mediastinum: Cardiomediastinal silhouette is enlarged. Musculoskeletal: No acute osseous pathology. Other findings: None Lines/Tubes: Dobbhoff tube terminates in the [id number] but does cross midline to the right IMPRESSION: Dobbhoff tube terminates in the [id number] but does cross midline to the right Scattered airspace opacities correlate for pneumonia. Small bilateral pleural effusions. [facility], , 04/13/2024 7:40 PM
[2024-04-13 19:46] LABS: Glucose,Whole Blood 234 mg/dL (70-110)
[2024-04-13] MEDS: levETIRAcetam IV 500 MG/5 ML VIAL IVP STA (19:50)
[2024-04-13] MEDS: HEPARIN SODIUM 1,000 UN/ML (10ML VL) IV PRN (20:53)
--- NOTE | 2024-04-13 22:53 | P.CONS ---
History of Present Illness - Reason for Consult Consult date: 04/13/24 Infection Requesting physician: Aries Vincent - Chief Complaint Weakness and fall x few days - History of Present Illness Patient is a 79-year-old male with a past medical history significant for diabetes mellitus hypertension hyperlipidemia PE rheumatoid arthritis patient presenting to the hospital 3 days ago from a local long-term concerning for multiple falls and weakness patient on presentation the hospital was noted to be hypertensive was nonverbal get admitted to the ICU patient did have fever of 100.5 F initially subsequently spiked a fever of 102 and the patient did spike fever yesterday evening of 101 degrees warm right patient has been under the care of admitting team in addition to the pulmonary nephrology cardiology as well as neurology services infectious disease was consulted this morning regarding infection, patient remains to be unresponsive and cannot provide any history no family member at the bedside patient did have resolution of his fever has a last temperature noted at midnight was 100 F patient is hemodynamically stable not requiring pressor support patient is on high flow nasal cannula oxygen patient is currently n.p.o. no vomiting or diarrhea has been reported patient did have a white count of 13.9 on admission there is down to 6.2 BUN and creatinine is elevated though trending down UA was negative on admission patient did tested negative for influenza RSV and COVID chest x-ray on admission was mostly CHF findings however the patient did have a CT of the chest completed yesterday afternoon small bilateral effusion progression of the left lower lobe masslike consolidation with concern for possible infectious etiology secretion identified in the trachea and right mainstem bronchus close concerning for aspiration Review of Systems Positive points has been mentioned in HPI complete review could not be obtained because of his underlying mental status Past Medical History Past Medical History: Diabetes Mellitus, Hearing Disorder / Deafness, Hyperlipidemia, Hypertension, Pulmonary Embolus (PE), Rheumatoid Arthritis (RA) Additional Past Medical History / Comment(s): Per Dr. Hughes H+P CT chest performed on Mar 2023, showed multiple bilat pulmonary nodules. aortic aneurysm, empyema, colitis, very [place], Diverticulosis. History of Any Multi-Drug Resistant Organisms: None Reported Past Surgical History: Hernia Repair Additional Past Surgical History / Comment(s): hemorrhoidectomy, surgeries for sebaceous cysts umbilical hernia repair,colonoscopy, surgery for empyema. Past Anesthesia/Blood Transfusion Reactions: No Reported Reaction Additional Past Anesthesia/Blood Transfusion Reaction / Comm: Hx of blood transfusion. No reaction. Past Psychological History: No Psychological Hx Reported Smoking Status: Former smoker - Past Family History Son(s) Family Medical History: Cancer Additional Family Medical History / Comment(s): brain cancer Brother(s) Family Medical History: Cancer Additional Family Medical History / Comment(s): colon cancer Sister(s) Family Medical History: Cancer Medications and Allergies Home Medications Medication Instructions Recorded Confirmed Type Cholecalciferol [Vitamin D3 (25 25 mcg PO DAILY 02/01/22 04/10/24 History Mcg = 1000 Iu)] Empagliflozin [Jardiance] 25 mg PO DAILY 02/01/22 04/10/24 History Gabapentin 600 mg PO TID #9 tab 07/25/22 04/10/24 Rx Apixaban [Eliquis] 5 mg PO BID #60 tab 07/30/22 04/10/24 Rx Atorvastatin [Lipitor] 80 mg PO HS 09/09/23 04/10/24 History Insulin Degludec [Tresiba 35 units SQ DAILY 09/09/23 04/10/24 History Flextouch U-100 Pen] Insulin Lispro [humaLOG Kwikpen] 15 unit SQ TID-W/MEALS 09/09/23 04/10/24 History Tamsulosin [Flomax] 0.4 mg PO DAILY 09/30/23 04/10/24 History atenoloL [Tenormin] 25 mg PO BID 09/30/23 04/10/24 History lisinopriL 30 mg PO DAILY 09/30/23 04/10/24 History Furosemide [Lasix] 40 mg PO DAILY 12/24/23 04/10/24 History Calcium Carbonate/Vitamin D3 1 tab PO DAILY 04/10/24 04/10/24 History [Calcium 600 mg-Vit D3 10 mcg (400 Unit)] Ipratropium-Albuterol Nebulize 3 ml INHALATION RT-Q6H PRN 04/10/24 04/10/24 History [Duoneb 0.5 mg-3 mg/3 ml Soln] Memantine [Namenda] 5 mg PO DAILY 04/10/24 04/10/24 History Multivitamins, Thera [Multivitamin 1 tab PO DAILY 04/10/24 04/10/24 History (formulary)] Pantoprazole [Protonix] 40 mg PO BID 04/10/24 04/10/24 History SILVER sulfADIAZINE Cream 1 applic TOPICAL MOWEFR 04/10/24 04/10/24 History [Silvadene 1% Cream] Sennosides [Senokot] 8.6 mg PO BID 04/10/24 04/10/24 History Ubidecarenone [Coenzyme Q10] 100 mg PO DAILY 04/10/24 04/10/24 History amLODIPine [Norvasc] 5 mg PO DAILY 04/10/24 04/10/24 History predniSONE 10 mg PO DAILY 04/10/24 04/10/24 History Allergies Allergy/AdvReac Type Severity Reaction Status Date / Time abatacept [From [facility]] Allergy Rash/Hives Verified 04/10/24 09:00 metformin Allergy Unknown Verified 04/10/24 09:00 Physical Exam Vitals: Vital Signs Temp Pulse Resp BP Pulse Ox 04/13/24 13:00 72 20 79/44 100 04/13/24 12:00 98.5 F 87 12 128/64 99 04/13/24 11:00 142 H 28 H 137/70 88 L 04/13/24 10:00 105 H 12 157/90 98 04/13/24 09:00 123 H 16 161/72 96 04/13/24 08:28 97 04/13/24 08:00 98.8 F 118 H 28 H 145/81 95 04/13/24 07:00 111 H 16 97 04/13/24 06:00 117 H 24 153/80 95 04/13/24 05:00 144 H 24 04/13/24 04:00 98.6 F 72 14 77/53 98 04/13/24 03:00 101 H 18 128/61 100 04/13/24 02:00 105 H 11 L 119/62 100 04/13/24 01:00 123 H 17 157/112 98 04/13/24 00:07 103 H 15 102/53 100 04/13/24 00:00 100 F H 101 H 11 L 115/51 100 04/12/24 23:00 101 H 15 106/62 100 04/12/24 22:00 98 11 L 98/42 100 04/12/24 21:00 135 H 14 141/75 92 L 04/12/24 20:00 98.2 F 109 H 10 L 146/64 97 04/12/24 19:00 99.5 F 110 H 12 110/54 95 04/12/24 18:00 112 H 12 172/87 94 L 04/12/24 17:00 125 H 12 114/52 96 04/12/24 16:00 101.0 F H 108 H 12 111/53 98 04/12/24 15:00 105 H 14 109/58 98 04/12/24 14:00 108 H 12 114/57 98 Intake and Output 04/12/24 04/13/24 04/13/24 22:59 06:59 14:59 Intake Total 808.315 0428.014 630.376 Output Total 575 625 325 Balance 231.818 729.014 305.376 Intake: IV 300 1300 585 0.9 at KVO 25 ACETAMINOPHEN IV (For NPO 400 ) 1,000 mg In Empty Bag 1 bag @ 400 mls/hr IVPB ONCE ONE Rx#:[id number] Dextrose 5% in Water 1, 300 800 560 000 ml @ 60 mls/hr IV . [id number] DAVID with Sodium Bicarb (1 Meq/ml) 150 ml Rx#:[id number] cefipime 100 Intake, IV Titration 506.818 54.014 45.376 Amount Dexmedetomidine/0.9% NaCl 6.818 54.014 45.376 (Pmx) 400 mcg In Empty Bag 1 bag @ 0.2 MCG/KG/HR 4.545 mls/hr IV .Q22H1M DAVID Rx#:[id number] Dextrose 5% in Water 1, 500 000 ml @ 60 mls/hr IV . [id number] DAVID with Sodium Bicarb (1 Meq/ml) 150 ml Rx#:[id number] Output: Urine 575 625 325 Other: Voiding Method Indwelling Catheter Indwelling Catheter Indwelling Catheter Weight 90.6 kg GENERAL DESCRIPTION: Elderly male lying in bed, no distress. No tachypnea or ac cessory muscle of respiration use. HEENT: Shows Pallor , no scleral icterus. Oral mucous membrane is dry. No pharyngeal erythema or thrush NECK: Trachea central, no thyromegaly. LUNGS: Unlabored breathing. Decreased breath sound the base HEART: S1, S2, regular rate and rhythm. No loud murmur ABDOMEN: Soft, no tenderness , guarding or rigidity, no organomegaly EXTREMITIES: No edema of feet. SKIN: Multiple bruises skin breakdown NEUROLOGICAL: The patient is lethargic orientation could not be very obtained Results CBC & Chem 7: 04/13/24 07:24 04/13/24 06:19 Labs: Abnormal Lab Results - Last 24 Hours (Table) 04/12/24 04/12/24 04/12/24 Range/Units 10:57 10:57 18:54 RBC (4.30-5.90) m/uL Hgb (13.0-17.5) gm/dL Hct (39.0-53.0) % MCV (80.0-100.0) fL RDW (11.5-15.5) % Plt Count (150-450) k/uL ESR 45 H (0-20) mm/Hr INR (<1.2) APTT (22.0-30.0) sec Chloride (98-107) mmol/L BUN (9-20) mg/dL Creatinine (0.66-1.25) mg/dL Glucose (74-99) mg/dL POC Glucose (mg/dL) 166 H (70-110) mg/dL Calcium (8.4-10.2) mg/dL Rheumatoid Factor 270 H (0-15) IU/mL 04/12/24 04/12/24 04/13/24 Range/Units 19:39 20:03 06:19 RBC (4.30-5.90) m/uL Hgb (13.0-17.5) gm/dL Hct (39.0-53.0) % MCV (80.0-100.0) fL RDW (11.5-15.5) % Plt Count (150-450) k/uL ESR (0-20) mm/Hr INR (<1.2) APTT (22.0-30.0) sec Chloride 110 H (98-107) mmol/L BUN 21 H (9-20) mg/dL Creatinine 1.74 H (0.66-1.25) mg/dL Glucose 203 H (74-99) mg/dL POC Glucose (mg/dL) 172 H 169 H (70-110) mg/dL Calcium 7.6 L (8.4-10.2) mg/dL Rheumatoid Factor (0-15) IU/mL 04/13/24 04/13/24 04/13/24 Range/Units 06:20 07:24 11:13 RBC 2.55 L (4.30-5.90) m/uL Hgb 8.5 L (13.0-17.5) gm/dL Hct 26.8 L (39.0-53.0) % MCV 105.2 H (80.0-100.0) fL RDW 17.0 H (11.5-15.5) % Plt Count 75 L (150-450) k/uL ESR (0-20) mm/Hr INR 1.2 H (<1.2) APTT 30.3 H (22.0-30.0) sec Chloride (98-107) mmol/L BUN (9-20) mg/dL Creatinine (0.66-1.25) mg/dL Glucose (74-99) mg/dL POC Glucose (mg/dL) 217 H (70-110) mg/dL Calcium (8.4-10.2) mg/dL Rheumatoid Factor (0-15) IU/mL 04/13/24 Range/Units 11:14 RBC (4.30-5.90) m/uL Hgb (13.0-17.5) gm/dL Hct (39.0-53.0) % MCV (80.0-100.0) fL RDW (11.5-15.5) % Plt Count (150-450) k/uL ESR (0-20) mm/Hr INR (<1.2) APTT (22.0-30.0) sec Chloride (98-107) mmol/L BUN (9-20) mg/dL Creatinine (0.66-1.25) mg/dL Glucose (74-99) mg/dL POC Glucose (mg/dL) 203 H (70-110) mg/dL Calcium (8.4-10.2) mg/dL Rheumatoid Factor (0-15) IU/mL Microbiology - Last 24 Hours (Table) 04/10/24 12:33 Blood Culture - Preliminary Blood Assessment and Plan (1) Aspiration pneumonia Current Visit: Yes Status: Acute Code(s): J69.0 - PNEUMONITIS DUE TO INHALATION OF FOOD AND VOMIT SNOMED Code(s): 824041073 (2) Sepsis Current Visit: No Status: Acute Code(s): A41.9 - SEPSIS, UNSPECIFIED ORGANISM SNOMED Code(s): 48758807 Plan: 1patient with initially presented to the hospital with sepsis in this patient who did have fever elevated white count tachycardia meeting criteria for SIRS also likely right lower lobe pneumonia and likely of aspiration etiology, however the patient significant mental status changes not entirely excluded by aspiration pneumonia and will need to rule out underlying central etiology such as encephalitis 2-patient antibiotic has been appropriately switched over to Zosyn to cover for aspiration pneumonia as of yesterday and the patient fever and white count is trending down hence we will continue the patient on Zosyn 3discussed with neurology regarding LP to rule out central etiology for his randolph e mental status changes such as encephalitis We will follow on clinical condition and cultures to further adjust medication if needed Thank you for this consultation we will follow the patient along with you Dictation was produced using [employer] dictation software. please excuse any grammatical, word or spelling errors. Time with Patient: Greater than 30
--- NOTE | 2024-04-14 00:02 | EEG ---
ELECTROENCEPHALOGRAM REPORT PREAMBLE: This is an 79-year-old male with altered mental status. The patient was restless during the study. EEG FINDINGS: This is a 21-channel digital EEG recorded with video component, utilizing 10/20 international system with referential and bipolar montages. The recording starts and continues with presence of diffuse low to medium amplitude 2 to 3 hertz generalized delta waves in bihemispheric region. Background does not seem to be reactive to eye opening or closing. Intermittent slightly higher amplitude, slightly sharply contoured waves were seen in generalized distribution. Different stages of sleep were not seen. No electrographic seizure was recorded. IMPRESSION: 1. Abnormal EEG due to background slowing of severe degree. This is suggestive of generalized cerebral dysfunction as can be seen with toxic metabolic encephalopathy or related to diffuse structural brain abnormality. Clinical correlation is recommended. 2. Presence of intermittent, slightly higher amplitude, sharply contoured waves in generalized distribution. There was no phase reversal, therefore uncertain if suggest underlying cortical irritability or artifactual in nature. Suggest prolonged EEG for further evaluation. No electrographic seizure was recorded. MMODL / IJN: [id number] / [facility] INSANEYanick
[2024-04-14 06:07] LABS: Anisocytosis Slight; HCT 31.9 % (39.0-53.0); HGB 10.7 gm/dL (13.0-17.5); Hypochromasia Moderate; MCH 35.1 pg (25.0-35.0); MCHC 33.5 g/dL (31.0-37.0); MCV 104.9 fL (80.0-100.0); Macrocytosis Moderate; Mean Platelet Volume 10.6; Poikilocytosis Slight; RBC 3.05 m/uL (4.30-5.90); RDW 16.9 % (11.5-15.5); WBC 4.7 k/uL (3.8-10.6)
[2024-04-14 06:10] LABS: Platelet Count 41 k/uL (150-450)
[2024-04-14 06:12] LABS: African American GFR (CKD) 44 (>60 ml/min/1.73 sqM); Anion Gap 10 mmol/L; Blood Urea Nitrogen 21 mg/dL (9-20); Calcium 8.3 mg/dL (8.4-10.2); Carbon Dioxide 19 mmol/L (22-30); Chloride 109 mmol/L (98-107); Glucose 289 mg/dL (74-99); Non-African American GFR(CKD) 38 (>60 ml/min/1.73 sqM); Sodium 138 mmol/L (137-145)
[2024-04-14 06:15] LABS: Potassium 5.3 mmol/L (3.5-5.1)
[2024-04-14 06:34] LABS: Glucose,Whole Blood 334 mg/dL (70-110)
[2024-04-14 06:42] LABS: Crenated RBC Present; Lymphocytes # (M) 0.24 k/uL (1.0-4.8); Neutrophils # (M) 4.47 k/uL (1.3-7.7); Neutrophils % (M) 95 %; Nucleated Red Blood Cells 0 /100 WBC (0-0); Total Cells Counted 100
[2024-04-14 07:13] LABS: INR 1.2 (<1.2); Partial Thromboplastin Time 32.3 sec (22.0-30.0); Prothrombin Time 12.7 sec (10.0-12.5)
--- NOTE | 2024-04-14 07:50 | XR ---
EXAMINATION TYPE: XR chest 1V portable DATE OF EXAM: 04/14/2024 COMPARISON: 04/13/2024 HISTORY: Dobbhoff placement TECHNIQUE: Single frontal view of the chest is obtained. FINDINGS: Bilateral airspace disease with pleural effusion. The heart is enlarged. Atherosclerotic ch hay aorta. Osseous structures demonstrate degenerative change of the spine. Upper mediastinum soft t issue prominence stable. IMPRESSION: 1. Diffuse bilateral airspace disease and pleural effusion could represent diffuse pneumonia, ARDS or pulmonary edema. 2. Upper mediastinal prominence. Consider follow-up CT scan [facility], , 04/14/2024 7:47 AM
[2024-04-14] MEDS: levETIRAcetam IV 500 MG/5 ML VIAL IVP SCH ×2 (08:37→20:39)
--- NOTE | 2024-04-14 10:11 | P.PN ---
Subjective Progress Note Date: 04/13/24 Patient was seen for a follow-up. Per nursing report, patient has got worse, more agitated. Patient on Precedex 0.1 mcg/kg/h. Earlier he was on Precedex 0.5 mcg/kg/h. Patient was very restless, that he was not able to have EEG done earlier. Per nursing report, he was very agitated, restless, not following any commands, not speaking at all. However after patient received morphine, he calmed down. At present patient is severely encephalopathic, not speaking. At 4:17 PM, I was informed by the nurse that patient woke up and appears to be having a seizure. Heart rate was 138, blood pressure 214/106, his eyes were rolling backwards and he was not tracking or following commands. Patient was given Ativan 2 mg IV push. Stat EEG was again called. Objective - Vital Signs Vital signs: Vital Signs Temp 97.4 F L 04/14/24 08:00 Pulse 117 H 04/14/24 09:00 Resp 19 04/14/24 09:00 BP 181/104 04/14/24 09:00 Pulse Ox 94 L 04/14/24 09:15 FiO2 Intake & Output 04/13/24 04/14/24 04/14/24 18:59 06:59 18:59 Intake Total 3563.057 1972.235 220 Output Total 540 585 100 Balance 848.861 956.235 120 Weight 91.4 kg Intake: IV 1080 1220 170 0.9 at KVO 85 120 20 Dextrose 5% in Water 1, 620 000 ml @ 60 mls/hr IV . [id number] DAVID with Sodium Bicarb (1 Meq/ml) 150 ml Rx#:[id number] Dextrose 5%-0.45% NaCl 1, 375 900 150 000 ml @ 75 mls/hr IV . [id number] DAVID Rx#:[id number] Piperacillin-Tazobactam 3 200 .375 gm In Sodium Chloride 0.9% 100 ml @ 25 mls/hr IVPB Q8H DAVID Rx#: [id number] Intake, IV Titration 308.861 231.235 Amount Amiodarone 450 mg In 250 Dextrose 5% in Water 250 ml @ 0.5 MG/MIN 16.667 mls/hr IV .Q15H DAVID Rx#: [id number] Dexmedetomidine/0.9% NaCl 58.861 62.117 (Pmx) 400 mcg In Empty Bag 1 bag @ 0.2 MCG/KG/HR 4.545 mls/hr IV .Q22H1M DAVID Rx#:[id number] Heparin Sod,Pork in 0.45% 169.118 NaCl 25,000 unit In 0.45 % NaCl 1 250ml.bag @ 11. 04 UNITS/KG/HR 10.002 mls /hr IV .Q24H DAVID Rx#: [id number] Tube Feeding 60 20 Other 30 30 Output: Urine 540 585 100 Other: Voiding Method Indwelling Catheter Indwelling Catheter Indwelling Catheter - Exam Patient is severely encephalopathic. Currently on Precedex 0.1 mcg/kg/h. Patient grimaces to painful stimuli. Pupils are equal, round and reacting, face is symmetric. Tone is equal. No obvious seizure-like activity. - Labs CBC & Chem 7: 04/14/24 05:29 04/14/24 05:29 Labs: Abnormal Lab Results - Last 24 Hours (Table) 04/13/24 04/13/24 04/13/24 Range/Units 11:13 11:14 18:09 RBC (4.30-5.90) m/uL Hgb (13.0-17.5) gm/dL Hct (39.0-53.0) % MCV (80.0-100.0) fL MCH (25.0-35.0) pg RDW (11.5-15.5) % Plt Count (150-450) k/uL Lymphocytes # (Manual) (1.0-4.8) k/uL PT (10.0-12.5) sec INR 1.2 H (<1.2) APTT 30.3 H (22.0-30.0) sec Potassium (3.5-5.1) mmol/L Chloride (98-107) mmol/L Carbon Dioxide (22-30) mmol/L BUN (9-20) mg/dL Creatinine (0.66-1.25) mg/dL Glucose (74-99) mg/dL POC Glucose (mg/dL) 203 H 233 H (70-110) mg/dL Calcium (8.4-10.2) mg/dL 04/13/24 04/13/2404/14/24 Range/Units 19:16 19:44 05:29 RBC 3.05 L (4.30-5.90) m/uL Hgb 10.7 L (13.0-17.5) gm/dL Hct 31.9 L (39.0-53.0) % MCV 104.9 H (80.0-100.0) fL MCH 35.1 H (25.0-35.0) pg RDW 16.9 H (11.5-15.5) % Plt Count 41 L (150-450) k/uL Lymphocytes # (Manual) 0.24 L (1.0-4.8) k/uL PT (10.0-12.5) sec INR (<1.2) APTT 34.9 H (22.0-30.0) sec Potassium (3.5-5.1) mmol/L Chloride (98-107) mmol/L Carbon Dioxide (22-30) mmol/L BUN (9-20) mg/dL Creatinine (0.66-1.25) mg/dL Glucose (74-99) mg/dL POC Glucose (mg/dL) 234 H (70-110) mg/dL Calcium (8.4-10.2) mg/dL 04/14/24 04/14/24 04/14/24 Range/Units 05:29 06:33 06:46 RBC (4.30-5.90) m/uL Hgb (13.0-17.5) gm/dL Hct (39.0-53.0) % MCV (80.0-100.0) fL MCH (25.0-35.0) pg RDW (11.5-15.5) % Plt Count (150-450) k/uL Lymphocytes # (Manual) (1.0-4.8) k/uL PT 12.7 H (10.0-12.5) sec INR 1.2 H (<1.2) APTT 32.3 H (22.0-30.0) sec Potassium 5.3 H (3.5-5.1) mmol/L Chloride 109 H (98-107) mmol/L Carbon Dioxide 19 L (22-30) mmol/L BUN 21 H (9-20) mg/dL Creatinine 1.67 H (0.66-1.25) mg/dL Glucose 289 H (74-99) mg/dL POC Glucose (mg/dL) 334 H (70-110) mg/dL Calcium 8.3 L (8.4-10.2) mg/dL Microbiology - Last 24 Hours (Table) 04/10/24 12:33 Blood Culture - Preliminary Blood Assessment and Plan Assessment: * Status post recurrent falls, likely due to hypotension, which is likely related to polypharmacy versus sepsis. Patient was on multiple blood pressure medications (x 4). * Altered mental status, likely due to acute metabolic encephalopathy. Reasons multifactorial as below. * Agitation, aggression at times, likely due to acute delirium. * New onset seizure-like activity. Rule out status. * Acute pulmonary edema, rule out pneumonia * Hypotension, rule out sepsis. Patient had high fever. * History of bilateral ICA stenosis. * Febrile illness * Acute on chronic renal insufficiency, improving * Thrombocytopenia * Macrocytic anemia * History of pulmonary embolism, on Eliquis. * History of empyema Plan: * CT chest revealed small bilateral pleural effusions with loculated right apex effusion. Increased size of pleural nodularity in the right lung with increased size of the left lower lobe masslike consolidation. Most consistent with progression of disease. Superimposed infectious process is suggested with scattered region of streak-like opacities and secretions identified in the trachea and right mainstem bronchus concerning for aspiration. Cardiomegaly, hepatic cirrhosis, colonic diverticulosis. ID following, patient currently on Zosyn. Discussed with ID, we will consider lumbar puncture. Patient currently on IV heparin. Hold heparin overnight and we will consider lumbar puncture in the morning. * Patient had a repeat CT head performed 04/12/2024, which was normal. No acute ischemic process. * Treatment of various medical conditions as per IM and other specialties on board * Stat EEG was abnormal due to background slowing of severe degree. This is suggestive of generalized cerebral dysfunction as can be seen with toxic metabolic encephalopathy or related to diffuse structural brain abnormality. Clinical correlation is recommended. Presence of intermittent slightly higher amplitude sharply contoured waves in generalized distribution. There was no phase reversal therefore uncertain if suggest underlying cortical irritability or some artifact. Suggest prolonged EEG for further evaluation. No gonzález ctrographic seizure was recorded. * Patient empirically started on Keppra 1000 mg IV x 1 dose followed by 500 mg twice daily. * Repeat prolonged EEG in the morning. * Patient was on gabapentin 600 mg 3 times daily. Currently on hold. Patient does have acute kidney injury as well. * We will resume gabapentin, but at a lower dose of 300 mg twice daily, to prevent any withdrawals. * B12 909, folate 19.60, TSH 3.73 * Rheumatoid factor 270, CHERYLE negative, ANCA antibodies negative, Bell antibodies, WORKFORCE PLANNER negative * Carotid Doppler revealed right 50 to 69% stenosis of the carotid bifurcation. Less than 50% stenosis of the carotid bifurcation on the left. Antegrade flow in both vertebral arteries * Eliquis currently on hold because patient not able to take by mouth. Therefore patient on IV heparin at this time. * Discussed with ICU staff in detail.
[2024-04-14 11:17] LABS: Glucose,Whole Blood 254 mg/dL (70-110)
[2024-04-14] MEDS: SODIUM CHLORIDE 0.45% 1,000 ML IV SCH ×2 (12:05→20:39)
--- NOTE | 2024-04-14 12:37 | P.PN ---
Subjective patient is seen for follow-up for acute kidney injury. Patient remains confused. LP being performed. Poor oral intake. Renal function has improved with creatinine down to 1.6. Urine output at 50-80 mL per hour. Objective - Vital Signs Vital signs: Vital Signs Temp 97.4 F L 04/14/24 08:00 Pulse 111 H 04/14/24 11:00 Resp 23 04/14/24 11:00 BP 172/90 04/14/24 11:00 Pulse Ox 98 04/14/24 11:00 FiO2 Intake & Output 04/13/24 04/14/24 04/14/24 18:59 06:59 18:59 Intake Total 4151.239 6165.235 688.181 Output Total 540 585 100 Balance 848.861 956.235 588.181 Weight 91.4 kg 91.4 kg Intake: IV 1080 1220 340 0.9 at KVO 85 120 40 Dextrose 5% in Water 1, 620 000 ml @ 60 mls/hr IV . [id number] DAVID with Sodium Bicarb (1 Meq/ml) 150 ml Rx#:[id number] Dextrose 5%-0.45% NaCl 1, 375 900 300 000 ml @ 75 mls/hr IV . [id number] [facility] Rx#:[id number] Piperacillin-Tazobactam 3 200 .375 gm In Sodium Chloride 0.9% 100 ml @ 25 mls/hr IVPB Q8H DAVID Rx#: [id number] Intake, IV Titration 308.861 231.235 298.181 Amount Amiodarone 450 mg In 250 250 Dextrose 5% in Water 250 ml @ 0.5 MG/MIN 16.667 mls/hr IV .Q15H DAVID Rx#: [id number] Dexmedetomidine/0.9% NaCl 58.861 62.117 48.181 (Pmx) 400 mcg In Empty Bag 1 bag @ 0.2 MCG/KG/HR 4.545 mls/hr IV .Q22H1M DAVID Rx#:[id number] Heparin Sod,Pork in 0.45% 169.118 NaCl 25,000 unit In 0.45 % NaCl 1 250ml.bag @ 11. 04 UNITS/KG/HR 10.002 mls /hr IV .Q24H DAVID Rx#: [id number] Tube Feeding 60 20 Other 30 30 Output: Urine 540 585 100 Other: Voiding Method Indwelling Catheter Indwelling Catheter Indwelling Catheter - Exam patient is comfortable. Does not communicate much. having LP performed Examination of lower extremities shows no significant edema - Labs CBC & Chem 7: 04/14/24 05:29 04/14/24 05:29 Labs: Abnormal Lab Results - Last 24 Hours (Table) 04/13/24 04/13/24 04/13/24 Range/Units 18:09 19:16 19:44 RBC (4.30-5.90) m/uL Hgb (13.0-17.5) gm/dL Hct (39.0-53.0) % MCV (80.0-100.0) fL MCH (25.0-35.0) pg RDW (11.5-15.5) % Plt Count (150-450) k/uL Lymphocytes # (Manual) (1.0-4.8) k/uL PT (10.0-12.5) sec INR (<1.2) APTT 34.9 H (22.0-30.0) sec Potassium (3.5-5.1) mmol/L Chloride (98-107) mmol/L Carbon Dioxide (22-30) mmol/L BUN (9-20) mg/dL Creatinine (0.66-1.25) mg/dL Glucose (74-99) mg/dL POC Glucose (mg/dL) 233 H 234 H (70-110) mg/dL Calcium (8.4-10.2) mg/dL 04/14/24 04/14/24 04/14/24 Range/Units 05:29 05:29 06:33 RBC 3.05 L (4.30-5.90) m/uL Hgb 10.7 L (13.0-17.5) gm/dL Hct 31.9 L (39.0-53.0) % MCV 104.9 H (80.0-100.0) fL MCH 35.1 H (25.0-35.0) pg RDW 16.9 H (11.5-15.5) % Plt Count 41 L (150-450) k/uL Lymphocytes # (Manual) 0.24 L (1.0-4.8) k/uL PT (10.0-12.5) sec INR (<1.2) APTT (22.0-30.0) sec Potassium 5.3 H (3.5-5.1) mmol/L Chloride 109 H (98-107) mmol/L Carbon Dioxide 19 L (22-30) mmol/L BUN 21 H (9-20) mg/dL Creatinine 1.67 H (0.66-1.25) mg/dL Glucose 289 H (74-99) mg/dL POC Glucose (mg/dL) 334 H (70-110) mg/dL Calcium 8.3 L (8.4-10.2) mg/dL 04/14/24 04/14/24 Range/Units 06:46 11:16 RBC (4.30-5.90) m/uL Hgb (13.0-17.5) gm/dL Hct (39.0-53.0) % MCV (80.0-100.0) fL MCH (25.0-35.0) pg RDW (11.5-15.5) % Plt Count (150-450) k/uL Lymphocytes # (Manual) (1.0-4.8) k/uL PT 12.7 H (10.0-12.5) sec INR 1.2 H (<1.2) APTT 32.3 H (22.0-30.0) sec Potassium (3.5-5.1) mmol/L Chloride (98-107) mmol/L Carbon Dioxide (22-30) mmol/L BUN (9-20) mg/dL Creatinine (0.66-1.25) mg/dL Glucose (74-99) mg/dL POC Glucose (mg/dL) 254 H (70-110) mg/dL Calcium (8.4-10.2) mg/dL Microbiology - Last 24 Hours (Table) 04/10/24 12:33 Blood Culture - Preliminary Blood Assessment and Plan Assessment: 1. CHAITANYA due to ATN from hypotension/shock. Presented creatinine 2.4 and 1.6 today. UA shows hyaline casts 1+ protein. 2. Hypotension rule out sepsis 3. CKD Stage 3a. Baseline creatinine 1.2-1.4 mg/dL. Etiology is diabetic kidney disease 4. Mild hyponatremia with sodium 132-Improved 5. Fall 6. HTN with CKD 7. Type 2 Diabetes 8. Metabolic acidosis non-gap secondary to acute kidney injury, status post IV bicarb 9. 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 Plan: continue half normal saline Add oral sodium bicarb Repeat labs in a.m. Continue with antibiotics
--- NOTE | 2024-04-14 13:47 | P.PN ---
Progress Note - Text Progress Note Date: 04/14/24 This is a pleasant 79 years old male who was transferred from [facility] for multiple falls in 24 hours. Patient currently cannot provide information it was obtained from staff, records and at bedside As per he was recently discharged from [facility] about 1 week earlier for CHF, acute kidney injury and pneumonia. These are per patient. On admission patient was found to be hypotensive, blood pressure 109/61 went down to 63/41, currently 85/40 Patient currently cannot provide information and he is nonverbal. at bedside There is very small pressure ulcers in the lower back. No tachypnea, abdomen looks soft. Urine catheter was placed in the hospital with clear urine. No evidence of suprapubic tenderness. No other rash. He has small abrasion on the right arm. Pupils are equal and reactive to light. Neck looks supple. No leg edema. On admission he had low-grade fever of 100.5 Labs reviewed he has leukocytosis of 13.9, hemoglobin 11.2, low platelet count 125, creatinine 2.4 with baseline 1.3-1.6 Liver enzymes, INR were unremarkable Influenza A and type B, RSV, SARS (coronavirus) are and detected Urinalysis showed glucosuria but no ketonuria Elevated troponin but is chronically elevated proBNP is slightly elevated 1030 CT of the head and neck is negative for acute process in either Pelvic x-ray is negative for acute process or fracture or dislocation EKG shows sinus rhythm at [address]-T changes Patient was received 3 L in the emergency room and started on normal sinus 75 mL/h also on ceftriaxone. italian tutor 18 was called and patient was transferred to the ICU and he was started on Levophed On review of the records: Previous CT of the chest showing scattered cavitary lesions and pulmonary nodules with left lower lung suspected mass. He s/p bronchoscopy on 10/04/2023 was negative cytology for malignant cells. Also patient had PET scan on 10/23/23 showing new uptake in the right pleural costophrenic angle and new punctate area within mediastinum with right peribronchial lymph nodes and multiple stable pulmonary nodules and nonspecific changes posterior to the coccyx and left pubic ramus could be infection, injury versus metastasis. Status post wedge resection of the left lung on 10/2023 Patient is more awake today, sitting in bed, trying to eat his breakfast, at bedside Look patient looks pleasant, slightly agitated and anxious, he follows command. He looks calm and relaxed. He denies significant tachypnea however he still has mild heavy breathing with no cough or chest pain Abdomen soft with no symptoms Valiente catheter in place Levophed was off since the night before Getting IV fluid normal saline at 75 mL/h 85. WBC normal 9.2, hemoglobin slightly low at 9.8. Creatinine slightly lower at 2.3. It was 2.4 yesterday Creatinine slightly low, has thrombocytopenia at 85 And remains on cefepime. Pro- Calcitonin was elevated 0.61 04/12 Patient today remains in the ICU, his mentation got worse, he is not answering questions, not following commands, staff does not feel safe to give him pills orally. He has restraints and occupational health and safety adviser at bedside Yesterday morning he was more awake sitting up in bed. He is on Eliquis added by telecommunications network planner. CT of the brain on admission was negative for acute process. Will going to consult neurology service for this purpose. His infection is improving with his leukocytosis is down, fever stopped WBC 6.8, hemoglobin 9.4, platelet count 77, creatinine trending down 2.4 down to 1.9, with baseline 1.3-1.6. Blood pressure on the low side, fever subsided. Blood culture still pending Currently on ceftriaxone and normal saline. April 13: ICU. Patient vomited overnight. Aspirated. Has been in and out of A-fib with rapid ventricular rate. Drips include IV amiodarone, Precedex, and bicarbonate. Patient on 7 L high flow. Intermittently agitated. Patient's arms are bruising and some weeping. Patient lethargic. Not able to communicate. Chest x-ray shows bilateral infiltrates April 14: ICU. Patient remains on IV Zosyn. Delirious. Based on EEG findings patient started on Keppra. Patient's family at the bedside. On 8 L nasal cannula. Lumbar puncture pending results pending. Spoke at length with patient's family at the bedside. Discussed prognosis guarded. Patient had multiple medical issues for a long time. Will see how patient progresses clinically. They did express that they do not want the patient to suffer. ID is also following the case. NG tube feeding has been started. Chest x-ray shows bilateral diffuse airway disease Active Medications Acetaminophen (Acetaminophen Tab 325 Mg Tab) 650 mg PO Q6HR PRN PRN Reason: Fever Last Admin: 04/10/24 23:46 Dose: 650 mg Dextrose/Water (Dextrose 50% Syringe 50 Ml) 25 ml IVP PER PROTOCOL PRN; Protocol PRN Reason: Hypoglycemia Dextrose/Water (Dextrose 50% Syringe 50 Ml) 50 ml IVP PER PROTOCOL PRN; Protocol PRN Reason: Hypoglycemia Famotidine (Famotidine 20 Mg Tab) 10 mg PO Q12HR DAVID Last Admin: 04/14/24 08:39 Dose: Not Given Gabapentin (Gabapentin 300 Mg Cap) 300 mg PO BID DAVID Last Admin: 04/14/24 08:39 Dose: Not Given Haloperidol Lactate (Haloperidol Lactate 5 Mg/Ml 1 Ml Vial) 4 mg IVP Q4HR PRN PRN Reason: Agitation or Acute Psychosis Last Admin: 04/12/24 16:48 Dose: 4 mg Haloperidol Lactate (Haloperidol Lactate 5 Mg/Ml 1 Ml Vial) 8 mg IVP Q4HR PRN PRN Reason: Agitation or Acute Psychosis Last Admin: 04/12/24 02:00 Dose: 8 mg Norepinephrine Bitartrate 4 mg (/ Sodium Chloride) 254 mls @ 9.851 mls/hr IV .Q24H DAVID; Protocol Last Admin: 04/14/24 08:27 Dose: Not Given Dexmedetomidine HCl 400 mcg/ (IV Solution) 100 mls @ 4.545 mls/hr IV .Q22H1M DAVID; Protocol Last Titration: 04/14/24 12:31 Dose: 0.6 mcg/kg/hr, 13.635 mls/hr Piperacillin Sod/Tazobactam (Sod 3.375 gm/ Sodium Chloride) 100 mls @ 25 mls/hr IVPB Q8H DAVID; Protocol Last Admin: 04/14/24 11:27 Dose: 25 mls/hr Sodium Chloride (Saline 0.45%) 1,000 mls @ 75 mls/hr IV .[id number] DAVID Insulin Aspart (Insulin Aspart (Novolog) 100 Unit/Ml Vial) 0 unit SQ ACHS DAVID; Protocol Last Admin: 04/14/24 11:28 Dose: 6 unit Levetiracetam (Levetiracetam Iv 500 Mg/5 Ml Vial) 500 mg IVP Q12HR DAVID Last Admin: 04/14/24 08:37 Dose: 500 mg Methylprednisolone Sodium Succinate (Methylprednisolone Sod Succi 125 Mg/2 Ml Vial) 60 mg IV Q6HR DAVID Last Admin: 04/14/24 11:27 Dose: 60 mg Morphine Sulfate (Morphine Sulfate 4 Mg/Ml Syringe) 4 mg IV Q4HR PRN PRN Reason: Severe Pain (Scale 7 to 10) Last Admin: 04/14/24 13:10 Dose: 4 mg Naloxone HCl (Naloxone 0.4 Mg/Ml 1 Ml Vial) 0.2 mg IV Q2M PRN PRN Reason: Opioid Reversal Ondansetron HCl (Ondansetron 4 Mg/2 Ml Vial) 4 mg IVP Q8HR PRN PRN Reason: Nausea And Vomiting Pantoprazole Sodium (Pantoprazole 40 Mg/10 Ml Vial) 40 mg IV DAILY DAVID Last Admin: 04/14/24 08:37 Dose: 40 mg Sodium Bicarbonate (Sodium Bicarbonate Tab 650 Mg Tab) 650 mg PO BID DAIVD On examination: VITAL SIGNS: 97.4, 117, 19, 128 x 65, 94% 8 L GENERAL APPEARANCE: BMI 28.7, laying in bed, lethargic. Bruising and some weeping in both the arms. HEENT: Normal external appearance of nose and ear. Oral cavity normal EYES: Pupils equal. Conjunctiva normal. NECK: JVD unable to assess mass not palpable. RESPIRATORY: Respiratory effort increased. Depressed breath sounds. CARDIOVASCULAR: First and second sounds normal. No edema. ABDOMEN: Soft. Liver and spleen not palpable. No tenderness. No mass palpable. PSYCHIATRY: Lethargic. Arousable. NEUROLOGICAL: Does move his limbs about. INVESTIGATIONS, reviewed in the clinical context: EEG [April 13] evidence of generalized cerebral dysfunction. Intermittent slightly higher amplitude sharply controlled waves and generalized distribution. April 14: White count 4.7 hemoglobin 10.7 platelets 41 potassium 5.3 BUN 21 creatinine 1.67 Carotid Doppler: No significant stenosis Chest CT [April 12] trace left right pleural effusion. Loculated appearance with largest pocket in the right apex. Scattered areas of atelectasis. Increased size of left lower lobe masslike consolidation 3.8 cm. Bilateral pulmonary nodules. Splenic flexure diverticulosis. Hepatic cirrhosis Chest x-ray film personally reviewed by ms-[April 13] bilateral infiltrates April 13, 2024: White count 6.2 hemoglobin 8.5 platelets 95 sodium 138 potassium 3.7 BUN 21 creatinine 1.74 April 10: White count 13.9 hemoglobin 11.2 platelets 125 sodium 132 potassium 4.6 BUN 30 creatinine 2.46 Troponin I 0.306. Procalcitonin 0.61 TSH 3.7 Influenza type A, type B, RSV, COVID-19: Not detected Assessment: -Sepsis with fever and leukocytosis, bilateral multilobar pneumonia: Slow response IV Zosyn Pulmonary following -Acute hypoxic respiratory failure secondary to pneumonia: Slow to respond Currently on high flow oxygen-8 L -Septic shock-better Patient was on pressors. -Paroxysmal atrial fibrillation rapid ventricular rate. Currently on IV amiodarone. IV heparin -IV heparin monitoring Follow PTT -Right and bilateral pulmonary nodules with abnormal PET scan with increased uptake in the left lower lung and mediastinal lymph node. Status post wedge resection of the left lower lung on 10/2023. 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 Neurology consulted -Possible seizures Keppra -[facility] to above -Chronic rheumatoid arthritis Pain control control as needed -Diabetes mellitus type II chronically requiring insulin, uncontrolled with hyperglycemia secondary to steroids Follow Accu-Cheks -Hypertension Blood pressure been running on the lower side. Both Tenormin and amlodipine have been held. -Hyperlipidemia Lipitor -Sigmoid diverticulosis, asymptomatic -Hepatic cirrhosis on CT scan -Chronic hard of hearing -Chronic PE Was on Eliquis outpatient -DNR Spoke to patient's niece and family at the bedside. Prognosis guarded. Add Levemir. Continue with antibiotics. Spoke to ID. Lumbar puncture pending. Prognosis guarded.
[2024-04-14 13:53] LABS: C-ANCA <1:20 Titer (<1:20)
--- NOTE | 2024-04-14 13:57 | P.CN ---
Psychiatric Consult - . Consult date: 04/14/24 Consult:: Follow-up consult note 04/14/24 13:51 REASON FOR REFERRAL: Psychiatry was consulted for altered mental status HISTORY OF PRESENT ILLNESS: The patient presented to the hospital after a fall and with mental status changes. Patients admits to using patient was placed on IV Haldol for agitation. Patient is still nonresponsive. The patient's granddaughter was in the room and I question her whether the patient had problems with mental status prior to admission she denied this. She had note prior to admission that he had very low blood pressures. MENTAL STATUS EXAM: General Appearance: Patient appeared his stated age he was currently not responsive. Behavior: Patient has been trying to scratch his face and has had mittens put on him Speech: Unable to evaluate Mood/Affect: Unable to evaluate Suicidality/Homicidality: Unable to evaluate Perceptions: Unable to evaluate Though content/process: Unable to evaluate Memory and concentration: Unable to evaluate Judgment and insight: Impaired IMPRESSIONS: Diagnosis: Delirium, likely secondary to infectious process and hypotension Assessment: Patient is currently nonresponsive unable to evaluate current mental status until patient starts clearing. Recommend recommendations below. Will continue to follow the patient. PLAN: -At this time patient DOES NOT meet criteria for inpatient psychiatric admission. -Delirium precautions recommended with patient including - avoiding use of narcotics and HYBRID POWERTRAIN DEVELOPMENT ENGINEER sedatives, limit anticholinergic medications when possible, frequent re-orientation, minimize use of restraints, open window shades during the day and close them at night -Would recommend the following medication changes/additions: Continue Haldol 4 mg IV as needed for agitation and acute safety concerns and discontinue Seroquel as patient is not able to ingest anything by mouth -Continue 1:1 sitter for safety -Psychiatry will continue to follow -Please contact with any questions. 04/14/24 13:54
--- NOTE | 2024-04-14 14:46 | P.PCN ---
Date of Procedure: 04/14/24 Operative Findings: Date of Procedure: 04/14/24 Preoperative Diagnosis: Altered mental status Postoperative Diagnosis: Altered mental status Procedure(s) Performed: Lumbar puncture Anesthesia: local Surgeon: Edita Loyola Estimated Blood Loss (ml): 0 Pathology: other Condition: critical Disposition: ICU Operative Findings: A time-out was performed. My hands were washed immediately prior to the procedure. I wore a surgical cap, mask with protective eyewear, sterile gown and sterile gloves throughout the procedure. The patient was placed in the lateral position with help from the nursing staff. The area was cleansed and draped in usual sterile fashion using betadine scrub. Anesthesia was achieved with 1% lidocaine. A 20-gauge 3.5-inch spinal needle was placed in the fourth lumbar interspace. On the first attempt, clear colored cerebral spinal fluid was obtained. The opening pressure was not measured. CSF was collected into 4 tubes. These were sent for the usual tests, including 1 tube to be held for further analysis if needed. A sterile bandaid was placed over the puncture site. The patient had no immediate complications and tolerated the procedure well. Estimated blood loss was 0
--- NOTE | 2024-04-14 14:47 | P.PCN ---
Date of Procedure: 04/14/24 Operative Findings: Date of Procedure: 04/14/24 Preoperative Diagnosis: Altered mental status Postoperative Diagnosis: Altered mental status Procedure(s) Performed: Triple-lumen, right femoral Anesthesia: local Surgeon: Edita Loyola Estimated Blood Loss (ml): 0 Pathology: other Condition: critical Disposition: ICU Operative Findings: Indication: Hemodynamic monitoring/Intravenous access. A time-out was completed verifying correct patient, procedure, site, positioning, and implant(s) or special equipment if applicable. The patient was placed in a dependent position appropriate for triple lumen catheter placement based on the vein to be cannulated. The patient's right femoral area was prepped and draped in sterile fashion. 1% Lidocaine was used to anesthetize the surrounding skin area. A triple lumen 9F Cordis catheter was introduced into the femoral vein using Seldinger technique. The catheter was threaded smoothly over the guide wire and appropriate blood return was obtained. Each lumen of the catheter was evacuated of air and flushed with sterile saline. The catheter was then sutured in place to the skin and a sterile dressing applied. Perfusion to the extremity distal to the point of catheter insertion was checked and found to be adequate.
[2024-04-14 15:44] LABS: Glucose,CSF 155 mg/dL (40-70); Total Protein,CSF 111 mg/dL (12-60)
--- NOTE | 2024-04-14 15:54 | P.PN ---
Subjective Progress Note Date: 04/14/24 79-year-old male with a history of diabetes, deafness, hyperlipidemia, hypertension, pulmonary embolism, rheumatoid arthritis, and multiple bilateral pulmonary nodules, secondary to rheumatoid arthritis. The patient resides at [facility], and apparently fell twice, and was brought into the [facility] department, to be evaluated. He is seen down in the emergency department, room 16. He is currently on 3 L nasal cannula. He is getting saline at 75 cc an hour. He has received 3 L of fluid bolus, and unfortunately his blood pressure continues to be low at 75/45. The patient is a bit lethargic and sleepy, not a particular good historian. He was not sure why he was in the emergency department. He is not even sure why he was at [facility]. Anyway, the patient is evaluated. The patient will need further monitoring and management, and will be admitted to the intensive care unit. He likely will need some norepinephrine, for his low blood pressure since he has not responded to fluids. In addition, we will have cardiology see him given the fact that there is some mild EKG changes, as well as an elevated troponin. He may be a patient with a non-ST segment elevation myocardial infarction. Current labs include a white count 13.9, hemoglobin 9.2, macro 34.2, and a platelet count of 125,000. Sodium 132, potassium 4.6, chlorides 106, CO2 22, BUN 30, creatinine 2.46. Troponin was 0.522. N-terminal proBNP was 1030. Albumin was 2.6. He tested negative for influenza, RSV, and coronavirus. Chest x-ray showed no acute cardiopulmonary disease. CT scan of the brain, cervical spine, and x-rays of the pelvis, are all negative. The patient was placed on cefepime by the primary service. A procalcitonin level is pending. On 04/12/2024, the patient remains encephalopathic and occasionally agitated. Earlier this morning, prior to my arrival, the patient was given Haldol 4 mg IV and morphine 4 mg IV and currently is quite lethargic and obtunded. He remains on 2 L of oxygen by nasal cannula with a pulse ox of 99%. The patient presented to us with episodes of fever and the exact source is not clear. The chest x-ray shows a new onset opacity in the right lateral lung field and based on that, a CAT scan of the chest will be ordered. Meanwhile, as mentioned earlier, the patient has areas of bilateral cavitating pulmonary infiltrates and has been investigated in the past via bronchoscopy that yielded no microbial growth or malignancy. 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 Fungal stains and the mycobacterial stains came back negative. There was numerous large caseating adenomas with acute on chronic inflammatory changes and this was thought to be related to an underlying connective tissue disease. The patient has been maintained on prednisone 10 mg p.o. daily on outpatient basis. On today's evaluation, the sodium levels at 140, bicarbonate 16 with a BUN of 25 and a creatinine of 1.9. Noted the patient presented to us with a creatinine of 2.4 he does not an underlying chronic kidney disease. The risk is at 6.8 with hemoglobin 8.4 and a platelet count of 77. The patient has fluctuating platelet counts over the past 1 year. He remains on IV cefepime. He is also on anticoagulation with Eliquis 2.5 mg p.o. twice a day. He is off pressors. The procalcitonin level was at 0.6. On 04/13/2024, patient is being seen for a follow-up. The patient remains lethargic, confused, nonresponsive. Sitter is at the bedside as the patient is occasionally getting agitated and for that reason the patient was started on Precedex and Precedex is running at 0.2 mcg/kg/h. Unable to communicate at this point in time as the patient is quite obtunded. In terms of his respiratory status, the patient remains on oxygen and currently is on 7 L of O2 nasal cannula with a pulse ox of 99%. The repeat chest x-ray from today is showing diffuse bilateral airspace disease with pleural effusions loculated along the right pleural border. CAT scan of the chest was also obtained yesterday and there are some new changes compared to the earlier chest x-ray and CAT scan findings. In summary, there is a loculated right apical pleural effusion along with loculated bilateral pleural effusion along the pleural borders more so on the right. There is increase in the size of the pleural nodularity in the right lung with increased in the size of the masslike consolidation in the left lung base. Possibility of a aspiration cannot be completely ruled out as the patient had some opacities and secretions within the trachea and right mainstem bronchus. There is also evidence of cardiomegaly, hepatic cirrhosis and diverticulosis. The patient is hemodynamically stable on no pressors. Overnight, the patient went into atrial fibrillation with rapid ventricular response. Started on amiodarone protocol which is running at 0.5 mg/min and the patient's rhythm is back to sinus. BUN is 21 with a creatinine of 1.7 and sodium levels of 138 and a potassium level of 3.7. White cell count is 6.2 with a hemoglobin of 8.5. In terms of the rheumatologic profile, the patient's rheumatoid factor came back elevated at 270. Antinuclear antibodies, anti-Bell antibodies, anti-ELECTRICAL ENGINEERING DIRECTOR antibodies came back negative. Awaiting the p-ANCA and c- ANCA titers. Based on his underlying aspiration that occurred yesterday, the patient will be switched to IV Zosyn. I am also going to start the patient on empiric treatment with systemic steroids and the patient was started on IV Solu- Medrol 60 mg every 6 hours. CAT scan of the brain was also done yesterday that showed no acute intracranial process and no nonspecific white matter changes. Doppler of the carotids completed yesterday showed 50 to 70% stenosis in the carotid bifurcation of the right otherwise negative. On today's evaluation of 04/14/2024, the patient remains clinically unchanged. Confused, obtunded and has obvious diminished level of consciousness along with episodes of agitation and based on that, the patient was kept on Precedex which is currently running at 0.3 mcg/kg/min. No focal neurological deficit. No seizure activity. EEG was done yesterday and repeat EEG was also done this morning. EEG is consistent with severe slowing suggestive of generalized cerebral dysfunction consistent with toxic metabolic encephalopathy. There is no evidence of any seizure activity. The patient remains afebrile. The patient remained hemodynamically stable. Triple-lumen catheter established yesterday for IV access and the patient remains on D5 half-normal saline at rate of 75 cc an hour. Urine output is adequate in the order of 30 cc to 50 cc an hour. Car diac rhythm remains sinus. The patient is currently off IV heparin and a lumbar puncture is to follow. The patient's also has a Dobbhoff catheter and vital AF was started at the rate of 10 cc an hour. On today's blood work, the white cell count is at 4.7 with a hemoglobin 10.7 and a platelet count of 41. BUN is 21 with a creatinine of 1.6 and a sodium levels at 138. Currently on IV Zosyn. Th e patient is also on IV Solu-Medrol 60 mg every 6 hours. The corrected to disease markers were all negative except for a positive rheumatoid factor. The p-ANCA and c-ANCA were negative. Rest of the SHONDA workup and CHERYLE was also negative. Chest x-ray remains abnormal with diffuse bilateral airspace disease and the patient remains on oxygen at 8 L/min nasal cannula. Objective - Vital Signs Vital signs: Vital Signs Temp 97.4 F L 04/14/24 08:00 Pulse 117 H 04/14/24 09:00 Resp 19 04/14/24 09:00 BP 181/104 04/14/24 09:00 Pulse Ox 94 L 04/14/24 09:15 FiO2 Intake & Output 04/13/24 04/14/24 04/14/24 18:59 06:59 18:59 Intake Total 7018.427 5635.235 220 Output Total 540 585 100 Balance 848.861 956.235 120 Weight 91.4 kg Intake: IV 1080 1220 170 0.9 at KVO 85 120 20 Dextrose 5% in Water 1, 620 000 ml @ 60 mls/hr IV . [id number] DAVID with Sodium Bicarb (1 Meq/ml) 150 ml Rx#:[id number] Dextrose 5%-0.45% NaCl 1, 375 900 150 000 ml @ 75 mls/hr IV . [id number] DAVID Rx#:[id number] Piperacillin-Tazobactam 3 200 .375 gm In Sodium Chloride 0.9% 100 ml @ 25 mls/hr IVPB Q8H DAVID Rx#: [id number] Intake, IV Titration 308.861 231.235 Amount Amiodarone 450 mg In 250 Dextrose 5% in Water 250 ml @ 0.5 MG/MIN 16.667 mls/hr IV .Q15H DAVID Rx#: [id number] Dexmedetomidine/0.9% NaCl 58.861 62.117 (Pmx) 400 mcg In Empty Bag 1 bag @ 0.2 MCG/KG/HR 4.545 mls/hr IV .Q22H1M DAVID Rx#:[id number] Heparin Sod,Pork in 0.45% 169.118 NaCl 25,000 unit In 0.45 % NaCl 1 250ml.bag @ 11. 04 UNITS/KG/HR 10.002 mls /hr IV .Q24H DAVID Rx#: [id number] Tube Feeding 60 20 Other 30 30 Output: Urine 540 585 100 Other: Voiding Method Indwelling Catheter Indwelling Catheter Indwelling Catheter - Exam Patient has demonstrating diminished level of consciousness, currently on Precedex. Unable to communicate. Unable to follow commands. Quite sleepy and lethargic.. Occasional agitation was noted and the patient was placed on Precedex. And there is a sitter at the bedside. Currently, he is on 8 L of oxygen by nasal cannula. Dobbhoff catheter is also in place. The patient remains on Precedex. HEENT examination is grossly unremarkable. Mucous membranes are moist. No oral lesions. Neck supple. Full range of motion. No adenopathy thyromegaly or neck vein distention. The patient has a short neck with crowding of the posterior pharynx Cardiovascular examination reveals regular rhythm rate. S1-S2 normal. No S3 or S4. No discernible murmur noted. Lungs reveal clear breath sounds. Breath sounds are equal bilaterally. No adventitious lung sounds including wheezes rhonchi or crackles. Abdomen soft bowel sounds are heard. No masses or tenderness. Extremities are intact. No cyanosis clubbing or edema. Skin is without rash or lesion. Neurologic examination is brief but nonfocal. Pupils are equal reactive to light. No focal neurological deficits. No cranial nerve deficits. No facial a symmetry. Unable to do a motor and sensory evaluation. Gait cannot be evaluated. The patient is sedated currently on Precedex. - Labs CBC & Chem 7: 04/14/24 05:29 04/14/24 05:29 Labs: Abnormal Lab Results - Last 24 Hours (Table) 04/13/24 04/13/24 04/13/24 Range/Units 11:13 11:14 18:09 RBC (4.30-5.90) m/uL Hgb (13.0-17.5) gm/dL Hct (39.0-53.0) % MCV (80.0-100.0) fL MCH (25.0-35.0) pg RDW (11.5-15.5) % Plt Count (150-450) k/uL Lymphocytes # (Manual) (1.0-4.8) k/uL PT (10.0-12.5) sec INR 1.2 H (<1.2) APTT 30.3 H (22.0-30.0) sec Potassium (3.5-5.1) mmol/L Chloride (98-107) mmol/L Carbon Dioxide (22-30) mmol/L BUN (9-20) mg/dL Creatinine (0.66-1.25) mg/dL Glucose (74-99) mg/dL POC Glucose (mg/dL) 203 H 233 H (70-110) mg/dL Calcium (8.4-10.2) mg/dL 04/13/24 04/13/24 04/14/24 Range/Units 19:16 19:44 05:29 RBC 3.05 L (4.30-5.90) m/uL Hgb 10.7 L (13.0-17.5) gm/dL Hct 31.9 L (39.0-53.0) % MCV 104.9 H (80.0-100.0) fL MCH 35.1 H (25.0-35.0) pg RDW 16.9 H (11.5-15.5) % Plt Count 41 L (150-450) k/uL Lymphocytes # (Manual) 0.24 L (1.0-4.8) k/uL PT (10.0-12.5) sec INR (<1.2) APTT 34.9 H (22.0-30.0) sec Potassium (3.5-5.1) mmol/L Chloride (98-107) mmol/L Carbon Dioxide (22-30) mmol/L BUN (9-20) mg/dL Creatinine (0.66-1.25) mg/dL Glucose (74-99) mg/dL POC Glucose (mg/dL) 234 H (70-110) mg/dL Calcium (8.4-10.2) mg/dL 04/14/24 04/14/24 04/14/24 Range/Units 05:29 06:33 06:46 RBC (4.30-5.90) m/uL Hgb (13.0-17.5) gm/dL Hct (39.0-53.0) % MCV (80.0-100.0) fL MCH (25.0-35.0) pg RDW (11.5-15.5) % Plt Count (150-450) k/uL Lymphocytes # (Manual) (1.0-4.8) k/uL PT 12.7 H (10.0-12.5) sec INR 1.2 H (<1.2) APTT 32.3 H (22.0-30.0) sec Potassium 5.3 H (3.5-5.1) mmol/L Chloride 109 H (98-107) mmol/L Carbon Dioxide 19 L (22-30) mmol/L BUN 21 H (9-20) mg/dL Creatinine 1.67 H (0.66-1.25) mg/dL Glucose 289 H (74-99) mg/dL POC Glucose (mg/dL) 334 H (70-110) mg/dL Calcium 8.3 L (8.4-10.2) mg/dL Microbiology - Last 24 Hours (Table) 04/10/24 12:33 Blood Culture - Preliminary Blood Assessment and Plan Plan: Acute febrile illness with development of a new opacity along the right lateral chest wall. Rule out pneumonia with developing effusion. Rule out underlying connective tissue disease/vasculitis with interval progression of his disease as the patient has caseating glaucomatous changes along with cavitary pulmonary infiltrates as noted on previous CAT scan and PET scan imaging and a wedge biopsy of the lung has confirmed the findings. Noted to follow-up CAT scan of the chest showed interval progression of the loculated pleural effusion and there is a loculated pocket in the right apex in addition to loculation along the right lateral chest border and some on the left in addition to pleural nodularity and consolidation of left lung base. Superimposed aspiration pneumonia cannot be completely excluded. The chest x-ray from today showed diffuse bilateral airspace disease. The patient is currently on 8 L of oxygen by nasal cannula. Noted the patient has not spiked any further temperature since admission. Status post fall Hypotension, recovered Encephalopathy, currently under investigation the CAT scan of the brain is negative, currently on Precedex to control agitation. The mental status remains impaired and the patient remains unresponsive, unable to communicate, and EEG showed diffuse encephalopathy without any seizure activity. Abnormal troponins, rule out non-ST segment elevation myocardial infarction, versus occult infection/sepsis, essentially a type II ischemia Chronic kidney disease stage III, creatinine is improving as the patient acute component of kidney injury on top of chronic kidney failure Anion gap metabolic acidosis, recovered History of hypertension. History of hyperlipidemia. History of diabetes mellitus. History of pulmonary embolism, the patient is maintained on anticoagulation with Eliquis 2.5 mg p.o. twice a day. The previous episode of pulm embolism was back in 2021. The patient was on IV heparin. 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 The patient has caseating granulomas based on a previous wedge biopsy of the lung. The microbial and the fungal and AFB cultures are all negative. Bacterial cultures are also negative. The rest of the connective tissue disease workup yielded positive rheumatoid factor, otherwise negative p-ANCA, c-ANCA, CHERYLE, SHONDA screen. History of diverticular disease. Paroxysmal atrial fibrillation with rapid ventricular response, currently back into normal sinus rhythm on amiodarone. Plan: Continue D5 half-normal saline at rate of 75 cc an hour Blood work for rheumatoid factor, CHERYLE, SHONDA screen, was completed and the patient was positive for rheumatoid factor Negative p-ANCA and awaiting c-ANCA Check a BLAINE level CAT scan of the chest, without contrast was noted and there is suspicion for s uperimposed aspiration Continue IV antibiotics and the patient will be switched to IV Zosyn Continue empiric steroids 60 mg IV Solu-Medrol every 6 hours Check gamma interferon assay Discontinued IV heparin and monitor the platelet count Compression device to the lower extremities bilaterally Lumbar puncture was done awaiting results EEG is consistent with encephalopathy Dobbhoff catheter has been inserted and the patient receiving enteral feeding for nutritional support Monitor renal function Aspiration precautions Monitor blood sugars Keep the patient n.p.o. for now central line was established High risk for intubation mechanical ventilation Will continue to follow condition is critical and will continue to make further recommendations based on his progress. This evaluation was done more than 30 minutes. Time with Patient: Greater than 30
[2024-04-14 16:37] LABS: Glucose,Whole Blood 176 mg/dL (70-110)
[2024-04-14 17:07] LABS: Appearance,CSF Clear; CSF Tube Number 4; Red Blood Cell,CSF 13 u/L (0-10)
[2024-04-14 17:08] LABS: Nucleated Cells, CSF 0 u/L (0-5); Red Blood Cell, CSF Crenated 0 %; Red Blood Cell, CSF Fresh 100 %
[2024-04-14] MEDS: SODIUM BICARBONATE TAB 650 MG TAB PO SCH (20:06)
[2024-04-14 20:30] LABS: Glucose,Whole Blood 214 mg/dL (70-110)
[2024-04-14] MEDS: INSULIN DETEMIR (LEVEMIR) 100 UNIT/ML SYR SQ SCH (20:38)
[2024-04-14] MEDS: AMIODARONE 200 MG TAB PO SCH (20:38)
[2024-04-14 22:36] LABS: Cyclic Citrull Pep IgG Unit 28.9 U/mL (<=3.9); Cyclic Citrullinated Pep IgG Positive (Negative)
--- NOTE | 2024-04-15 02:05 | EEG ---
ELECTROENCEPHALOGRAM REPORT PREAMBLE: This is an 79-year-old male with severe altered mental status. CURRENT MEDICATIONS: Keppra. EEG FINDINGS: This is a 21-channel digital EEG recorded with video component, utilizing 10/20 international system with referential and bipolar montages. This is a prolonged EEG performed for 53 minutes. Recording start time 9:44 a.m. on 04/14/2024 and recording end time is 10:37 a.m. on 04/14/2024. A total of 53 minutes of recording time was available. The recording starts and continues with presence of diffuse moderate amplitude mixed delta and theta slowing seen symmetrically in bihemispheric region. Background does not seem to be reactive to eye opening or closing. Lot of myogenic artifacts were seen, as the patient is constantly tremulous with head and mouth movement, and arm tremoring. Photic driving response was not seen. Different stages of sleep were not seen. Some periodic very questionable slightly higher amplitude waves were seen intermittently during this study. However, the patient has been constantly moving during this study as well. No electrographic seizure however was recorded. IMPRESSION: Abnormal EEG due to, 1. Background slowing of severe degree. This is suggestive of generalized cerebral dysfunction as can be seen with toxic metabolic encephalopathy or related to diffuse structural brain abnormality. Clinical correlation is recommended. 2. Continued presence of some higher amplitude periodic waves, which sometimes are sharply contoured. Although these does not appear epileptiform, but sometimes rhythmic pattern. Followup EEG recommended, if clinically indicated. SCOTT / JOSE: [id number] / MTDD
[2024-04-15 06:29] LABS: Anisocytosis Slight; HCT 31.4 % (39.0-53.0); HGB 10.4 gm/dL (13.0-17.5); Hypochromasia Slight; MCV 103.1 fL (80.0-100.0); Macrocytosis Moderate; Poikilocytosis Slight; RBC 3.05 m/uL (4.30-5.90); RDW 16.8 % (11.5-15.5); WBC 7.8 k/uL (3.8-10.6)
[2024-04-15 06:30] LABS: Anion Gap 8 mmol/L; Blood Urea Nitrogen 28 mg/dL (9-20); Carbon Dioxide 24 mmol/L (22-30); Chloride 108 mmol/L (98-107); Glucose 172 mg/dL (74-99); Potassium 3.9 mmol/L (3.5-5.1); Sodium 140 mmol/L (137-145)
[2024-04-15 06:31] LABS: ALT 19 U/L (4-49); AST 26 U/L (17-59); African American GFR (CKD) 42 (>60 ml/min/1.73 sqM); Albumin 2.6 g/dL (3.5-5.0); Alkaline Phosphatase 53 U/L (38-126); Calcium 8.6 mg/dL (8.4-10.2); Non-African American GFR(CKD) 36 (>60 ml/min/1.73 sqM); Total Bilirubin 0.8 mg/dL (0.2-1.3); Total Protein 5.4 g/dL (6.3-8.2)
[2024-04-15 06:48] LABS: Platelet Count 100 k/uL (150-450)
[2024-04-15 06:52] LABS: Glucose,Whole Blood 205 mg/dL (70-110)
[2024-04-15 06:58] LABS: Lymphocytes # (M) 0.62 k/uL (1.0-4.8); Monocytes # (M) 0.23 k/uL (0-1.0); Neutrophils # (M) 6.94 k/uL (1.3-7.7); Neutrophils % (M) 89 %; Nucleated Red Blood Cells 0 /100 WBC (0-0); Total Cells Counted 100
[2024-04-15] MEDS ORDERED: Potassium Replacement Protocol 1 EACH MISC MISCELLANE PRN (06:58)
--- NOTE | 2024-04-15 08:10 | XR ---
EXAMINATION TYPE: XR chest 1V portable DATE OF EXAM: 04/15/2024 COMPARISON: 04/04/2024 HISTORY: Shortness of breath TECHNIQUE: Single frontal view of the chest is obtained. FINDINGS: Bilateral airspace disease with pleural effusion. The heart is enlarged. Atherosclerotic c hange aorta. Osseous structures demonstrate degenerative change of the spine. Upper mediastinum soft tissue prominence stable. IMPRESSION: Stable diffuse bilateral airspace disease with small pleural effusions. Unchanged promin ence of the upper mediastinum. [facility], , 04/15/2024 8:07 AM
[2024-04-15] MEDS: POTASSIUM BICARBONATE/CIT AC 20 MEQ TABLET.EFF NG-TUBE SCH (09:55)
[2024-04-15] MEDS: APIXABAN 5 MG TAB PO SCH (09:59)
[2024-04-15] MEDS: MAGNESIUM HYDROXIDE 2,400 MG/30 ML CUP PO PRN (10:00)
[2024-04-15] MEDS: QUEtiapine 100 MG TAB PO SCH (10:14)
--- NOTE | 2024-04-15 11:06 | P.PN ---
Subjective Progress Note Date: 04/14/24 Patient was seen for a follow-up. Patient continues to be severely encephalopathic. Patient is completely obtunded at this time. Patient is on Precedex 0.6 mcg/kg/h and Zosyn and amiodarone also running. During EEG that was performed earlier,, it was noted on the video section, that patient is constantly moving, tremoring very restless, however now at this time he is very obtunded. At present patient is severely encephalopathic, not speaking. No further seizure-like activity noted. Objective - Vital Signs Vital signs: Vital Signs Temp 97.4 F L 04/14/24 08:00 Pulse 102 H 04/14/24 12:00 Resp 16 04/14/24 12:00 BP 129/114 04/14/24 12:00 Pulse Ox 98 04/14/24 12:00 FiO2 Intake & Output 04/13/24 04/14/24 04/14/24 18:59 06:59 18:59 Intake Total 7077.991 3163.235 776.135 Output Total 540 585 130 Balance 848.861 956.235 646.135 Weight 91.4 kg 91.4 kg Intake: IV 1080 1220 425 0.9 at KVO 85 120 50 Dextrose 5% in Water 1, 620 000 ml @ 60 mls/hr IV . [id number] DAVID with Sodium Bicarb (1 Meq/ml) 150 ml Rx#:[id number] Dextrose 5%-0.45% NaCl 1, 375 900 375 000 ml @ 75 mls/hr IV . [id number] DAVID Rx#:[id number] Piperacillin-Tazobactam 3 200 .375 gm In Sodium Chloride 0.9% 100 ml @ 25 mls/hr IVPB Q8H DAVID Rx#: [id number] Intake, IV Titration 308.861 231.235 301.135 Amount Amiodarone 450 mg In 250 250 Dextrose 5% in Water 250 ml @ 0.5 MG/MIN 16.667 mls/hr IV .Q15H DAVID Rx#: [id number] Dexmedetomidine/0.9% NaCl 58.861 62.117 51.135 (Pmx) 400 mcg In Empty Bag 1 bag @ 0.2 MCG/KG/HR 4.545 mls/hr IV .Q22H1M DAVID Rx#:[id number] Heparin Sod,Pork in 0.45% 169.118 NaCl 25,000 unit In 0.45 % NaCl 1 250ml.bag @ 11. 04 UNITS/KG/HR 10.002 mls /hr IV .Q24H DAVID Rx#: [id number] Tube Feeding 60 20 Other 30 30 Output: Urine 540 585 130 Other: Voiding Method Indwelling Catheter Indwelling Catheter Indwelling Catheter - Exam Patient is severely encephalopathic. Currently on Precedex 0.1 mcg/kg/h. Patient grimaces to painful stimuli. Pupils are equal, round and reacting, face is symmetric. Tone is equal. No obvious seizure-like activity. - Labs CBC & Chem 7: 04/15/24 06:01 04/15/24 06:01 Labs: Abnormal Lab Results - Last 24 Hours (Table) 04/13/24 04/13/24 04/13/24 Range/Units 18:09 19:16 19:44 RBC (4.30-5.90) m/uL Hgb (13.0-17.5) gm/dL Hct (39.0-53.0) % MCV (80.0-100.0) fL MCH (25.0-35.0) pg RDW (11.5-15.5) % Plt Count (150-450) k/uL Lymphocytes # (Manual) (1.0-4.8) k/uL PT (10.0-12.5) sec INR (<1.2) APTT 34.9 H (22.0-30.0) sec Potassium (3.5-5.1) mmol/L Chloride (98-107) mmol/L Carbon Dioxide (22-30) mmol/L BUN (9-20) mg/dL Creatinine (0.66-1.25) mg/dL Glucose (74-99) mg/dL POC Glucose (mg/dL) 233 H 234 H (70-110) mg/dL Calcium (8.4-10.2) mg/dL 04/14/24 04/14/24 04/14/24 Range/Units 05:29 05:29 06:33 RBC 3.05 L (4.30-5.90) m/uL Hgb 10.7 L (13.0-17.5) gm/dL Hct 31.9 L (39.0-53.0) % MCV 104.9 H (80.0-100.0) fL MCH 35.1 H (25.0-35.0) pg RDW 16.9 H (11.5-15.5) % Plt Count 41 L (150-450) k/uL Lymphocytes # (Manual) 0.24 L (1.0-4.8) k/uL PT (10.0-12.5) sec INR (<1.2) APTT (22.0-30.0) sec Potassium 5.3 H (3.5-5.1) mmol/L Chloride 109 H (98-107) mmol/L Carbon Dioxide 19 L (22-30) mmol/L BUN 21 H (9-20) mg/dL Creatinine 1.67 H (0.66-1.25) mg/dL Glucose 289 H (74-99) mg/dL POC Glucose (mg/dL) 334 H (70-110) mg/dL Calcium 8.3 L (8.4-10.2) mg/dL 04/14/24 04/14/24 Range/Units 06:46 11:16 RBC (4.30-5.90) m/uL Hgb (13.0-17.5) gm/dL Hct (39.0-53.0) % MCV (80.0-100.0) fL MCH (25.0-35.0) pg RDW (11.5-15.5) % Plt Count (150-450) k/uL Lymphocytes # (Manual) (1.0-4.8) k/uL PT 12.7 H (10.0-12.5) sec INR 1.2 H (<1.2) APTT 32.3 H (22.0-30.0) sec Potassium (3.5-5.1) mmol/L Chloride (98-107) mmol/L Carbon Dioxide (22-30) mmol/L BUN (9-20) mg/dL Creatinine (0.66-1.25) mg/dL Glucose (74-99) mg/dL POC Glucose (mg/dL) 254 H (70-110) mg/dL Calcium (8.4-10.2) mg/dL Microbiology - Last 24 Hours (Table) 04/10/24 12:33 Blood Culture - Preliminary Blood Assessment and Plan Assessment: * Status post recurrent falls, likely due to hypotension, which is likely related to polypharmacy versus sepsis. Patient was on multiple blood pressure medications (x 4). * Altered mental status, likely due to acute metabolic encephalopathy. Reasons multifactorial as below. * Agitation, aggression at times, likely due to acute delirium. * New onset seizure-like activity. Abnormal EEG. * Acute pulmonary edema, rule out pneumonia * Hypotension, rule out sepsis. Patient had high fever, last spike on 04/12/2024. * History of bilateral ICA stenosis. * Febrile illness * Acute on chronic renal insufficiency, improving * Thrombocytopenia * Macrocytic anemia * History of pulmonary embolism, on Eliquis. * History of empyema * Rheumatoid arthritis Plan: * Patient continues to be severely encephalopathic. * CT chest revealed small bilateral pleural effusions with loculated right apex effusion. Increased size of pleural nodularity in the right lung with increased size of the left lower lobe masslike consolidation. Most consistent with progression of disease. Superimposed infectious process is suggested with scattered region of streak-like opacities and secretions identified in the trachea and right mainstem bronchus concerning for aspiration. Cardiomegaly, hepatic cirrhosis, colonic diverticulosis. ID following, patient currently on Zosyn. Discussed with ID, we will consider lumbar puncture. Patient currently on IV heparin. Hold heparin overnight and we will consider lumbar puncture in the morning. * Patient had a repeat CT head performed 04/12/2024, which was normal. No acute ischemic process. * Treatment of various medical conditions as per IM and other specialties on board * Repeat prolonged EEG 04/14/2024 was abnormal due to background slowing, suggestive of severe encephalopathy. Continued presence of some higher amplitude periodic waves, which sometimes are sharply contoured. Although these does not appear epileptiform, but sometimes become rhythmic and regular. Follow-up EEG recommended if clinically indicated. * Initial 04/13/2024 EEG was abnormal due to background slowing of severe degree. This is suggestive of generalized cerebral dysfunction as can be seen with toxic metabolic encephalopathy or related to diffuse structural brain abnormality. Clinical correlation is recommended. Presence of intermittent slightly higher amplitude sharply contoured waves in generalized distribution. There was no phase reversal therefore uncertain if suggest underlying cortical irritability or some artifact. Suggest prolonged EEG for further evaluation. No electrographic seizure was recorded. * Increase dose of Keppra to 1000 mg twice daily. * Patient was on gabapentin 600 mg 3 times daily. * We will resume gabapentin, but at a lower dose of 300 mg twice daily, to prevent any withdrawals. Inform nurse to start giving Neurontin from today. (Has not received it yet) * Patient underwent lumbar puncture today by critical care team. CSF WBC 0, RBC 13, glucose 155, proteins 111. Pending viral cultures. * B12 909, folate 19.60, TSH 3.73 * Rheumatoid factor 270, CCP 28.9 CHERYLE negative, ANCA antibodies negative, Bell antibodies, RE[facility]AB[facility]ATION SERVICES AIDE negative * Carotid Doppler revealed right 50 to 69% stenosis of the carotid bifurcation. Less than 50% stenosis of the carotid bifurcation on the left. Antegrade flow in both vertebral arteries * Eliquis currently on hold because patient not able to take by mouth. Therefore patient on IV heparin at this time. * Discussed with ICU staff in detail.
[2024-04-15 11:12] LABS: Glucose,Whole Blood 182 mg/dL (70-110)
--- NOTE | 2024-04-15 12:43 | P.PN ---
Subjective patient is seen for follow-up for acute kidney injury. Patient remains confused. Poor oral intake. Renal function has improved with creatinine now staying around 1.6-1.7 mg/dL. Urine output at 50-30 mL per hour. Maintained on half normal saline at 70 mL an hour Objective - Vital Signs Vital signs: Vital Signs Temp 97.5 F L 04/15/24 08:00 Pulse 85 04/15/24 11:00 Resp 13 04/15/24 11:00 BP 159/81 04/15/24 11:00 Pulse Ox 97 04/15/24 11:00 FiO2 Intake & Output 04/14/24 04/15/24 04/15/24 18:59 06:59 18:59 Intake Total 8712.473 5081.614 666.580 Output Total 335 375 200 Balance 3912.150 0451.614 466.580 Weight 91.4 kg 93.4 kg Intake: IV 950 1135 525 0.9 at KVO 50 110 50 Dextrose 5%-0.45% NaCl 1, 375 000 ml @ 75 mls/hr IV . [id number] DAVID Rx#:[id number] Piperacillin-Tazobactam 3 200 100 .375 gm In Sodium Chloride 0.9% 100 ml @ 25 mls/hr IVPB Q8H DAVID Rx#: [id number] Sodium Chloride 0.45% 1, 525 825 375 000 ml @ 75 mls/hr IV . [id number] DAVID Rx#:[id number] Intake, IV Titration 301.135 426.614 121.580 Amount Amiodarone 450 mg In 250 146.67 Dextrose 5% in Water 250 ml @ 0.5 MG/MIN 16.667 mls/hr IV .Q15H DAVID Rx#: [id number] Dexmedetomidine/0.9% NaCl 51.135 279.944 121.580 (Pmx) 400 mcg In Empty Bag 1 bag @ 0.2 MCG/KG/HR 4.545 mls/hr IV .Q22H1M DAVID Rx#:[id number] Tube Feeding 50 190 20 Other 60 90 Output: Urine 335 375 200 Other: Voiding Method Indwelling Catheter Indwelling Catheter Indwelling Catheter - Exam patient is comfortable. Does not communicate much. examination of the heart S1 and S2 Examination of the lungs bilateral breath sounds are heard Abdomen is soft Examination of lower extremities shows no significant edema - Labs CBC & Chem 7: 04/15/24 06:01 04/15/24 06:01 Labs: Abnormal Lab Results - Last 24 Hours (Table) 04/14/24 04/14/24 04/14/24 Range/Units 10:55 12:29 12:29 RBC (4.30-5.90) m/uL Hgb (13.0-17.5) gm/dL Hct (39.0-53.0) % MCV (80.0-100.0) fL RDW (11.5-15.5) % Plt Count (150-450) k/uL Lymphocytes # (Manual) (1.0-4.8) k/uL Chloride (98-107) mmol/L BUN (9-20) mg/dL Creatinine (0.66-1.25) mg/dL Glucose (74-99) mg/dL POC Glucose (mg/dL) (70-110) mg/dL Total Protein (6.3-8.2) g/dL Albumin (3.5-5.0) g/dL Angiotensin Convert Enz 6 L (8-52) U/L CSF RBC 13 H (0-10) u/L CSF Glucose 155 H (40-70) mg/dL CSF Total Protein 111 H (12-60) mg/dL Cycl Citrul Peptide IgG 28.9 H (<=3.9) U/mL Cyclic Citrull Peptide Positive A (Negative) 04/14/24 04/14/24 04/15/24 Range/Units 16:29 20:28 06:01 RBC 3.05 L (4.30-5.90) m/uL Hgb 10.4 L (13.0-17.5) gm/dL Hct 31.4 L (39.0-53.0) % MCV 103.1 H (80.0-100.0) fL RDW 16.8 H (11.5-15.5) % Plt Count 100 L D (150-450) k/uL Lymphocytes # (Manual) 0.62 L (1.0-4.8) k/uL Chloride (98-107) mmol/L BUN (9-20) mg/dL Creatinine (0.66-1.25) mg/dL Glucose (74-99) mg/dL POC Glucose (mg/dL) 176 H 214 H (70-110) mg/dL Total Protein (6.3-8.2) g/dL Albumin (3.5-5.0) g/dL Angiotensin Convert Enz (8-52) U/L CSF RBC (0-10) u/L CSF Glucose (40-70) mg/dL CSF Total Protein (12-60) mg/dL Cycl Citrul Peptide IgG (<=3.9) U/mL Cyclic Citrull Peptide (Negative) 04/15/24 04/15/24 04/15/24 Range/Units 06:01 06:51 11:10 RBC (4.30-5.90) m/uL Hgb (13.0-17.5) gm/dL Hct (39.0-53.0) % MCV (80.0-100.0) fL RDW (11.5-15.5) % Plt Count (150-450) k/uL Lymphocytes # (Manual) (1.0-4.8) k/uL Chloride 108 H (98-107) mmol/L BUN 28 H (9-20) mg/dL Creatinine 1.75 H (0.66-1.25) mg/dL Glucose 172 H (74-99) mg/dL POC Glucose (mg/dL) 205 H 182 H (70-110) mg/dL Total Protein 5.4 L (6.3-8.2) g/dL Albumin 2.6 L (3.5-5.0) g/dL Angiotensin Convert Enz (8-52) U/L CSF RBC (0-10) u/L CSF Glucose (40-70) mg/dL CSF Total Protein (12-60) mg/dL Cycl Citrul Peptide IgG (<=3.9) U/mL Cyclic Citrull Peptide (Negative) Microbiology - Last 24 Hours (Table) 04/14/24 10:55 CSF Gram Stain - Preliminary Cerebral Spinal Fluid CSF Culture - Preliminary Assessment and Plan Assessment: 1. CHAITANYA due to ATN from hypotension/shock. Presented creatinine 2.4 and 1.6 -1.7 now. UA shows hyaline casts 1+ protein. Maintained on IV fluids 2. Hypotension rule out sepsis 3. CKD Stage 3a. Baseline creatinine 1.2-1.4 mg/dL. Etiology is diabetic kidney disease 4. Mild hyponatremia with sodium 132-Improved 5. Fall 6. HTN with CKD 7. Type 2 Diabetes 8. Metabolic acidosis non-gap secondary to acute kidney injury, status post IV bicarb 9. 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 Plan: continue half normal saline Add oral sodium bicarb Repeat labs in a.m. Continue with antibiotics
--- NOTE | 2024-04-15 13:33 | CDI ---
Documentation Clarification Form Date: 04/15/2024 From: Jessica Lopez RN CCDS Phone: [phone] Admit Date: 04/10/2024 06:34:00 AM Patient Name: Guero Fernandez Visit Number: [id number] Discharge Date: ATTENTION: The Clinical Documentation Specialists (CDI) and [facility] Coding Staff appreciate your assistance in clarifying documentation. Please respond to the clarification below the line at the bottom and electronically sign. The CDI & [facility] Coding staff will review the response and follow-up if needed. Please note: Queries are made part of the Legal Health Record. If you have any questions, please contact the author of this message via ITS. Doctor/Provider: Aries Vincent MD: There is documentation of a NSTEMI in the ED note 04/10 and in subsequent documentation. Additional clarification is requested. History/Risk Factors: 79-year-old male with a history of DM, HTN, PE, recent discharge from hospital for CHF, CHAITANYA and PNA who presents with hypotension and found to be septic with fever and unknown source of infection, AMS Clinical Indicators: 04/10 Triage VS: 109/61, 100.5, 88, 18, 95% 3 liters nasal cannula 04/10 ED note, Clinical Impression: "Fall, Chest pain, weakness, Fever, NSTEMI, CHAITANYA" 04/10 Cardiology consult, Assessment:" Elevated troponin due to poor renal clearance in setting of CHAITANYA." Plan: "Less likely acute coronary syndrome. ECG shows sinus rhythm with right bundle branch block with no significant ST changes concerning of acute ischemia." 04/14 Pulmonology PN, Assessment and Plan: "Abnormal troponins, rule out non-ST segment elevation myocardial infarction, versus occult infection/sepsis, essentially a type II ischemia" 04/10 ECHO EF: EF 55-60% 04/10 Troponin: 0.522, 0.380, 0.306 04/10 BNP: 1030 04/10-04/15 BUN 30, 31, 25, 21, 21, 28 Creatinine: 2.46, 2.32, 1.92, 1.74, 1.67, 1.75 Treatment: Monitor troponin Consult Cardiology Levophed 4mg titrated drip 04/10 Zosyn 3.375gram IV start 04/13 Maxipine 2gram IV 04/10-04/13 Normal Saline IV 75cc/hour 01/08-01/10 then resumed on04/14 Can you please clarify the diagnosis of NSTEMI? [ ] NSTEMI type 2 [ ] Non-ischemic with acute myocardial injury [ + ] NSTEMI ruled out [ ] Other, please specify [ ] Unable to determine MTDD
--- NOTE | 2024-04-15 13:33 | P.PN ---
Subjective Progress Note Date: 04/14/24 Principal diagnosis: Reason for follow-up is aspiration pneumonia and a question of encephalitis Patient is a 79-year-old male with a past medical history significant for diabetes mellitus hypertension hyperlipidemia PE rheumatoid arthritis patient presenting to the hospital for evaluation of multiple falls and weakness patient did have a fever with a CT of the chest did shows evidence of left lower lobe consolidation and secretion in the trachea concerning for aspiration. On today's evaluation that is 04/14/2024, patient did have resolution of his fever has been afebrile for more than 24 hours now, patient is breathing comfortably however is requiring a liter nasal cannula oxygen the patient remains to be lethargic and at times agitated no vomiting or diarrhea has been reported by the nursing staff. Patient white count is 4.7, creatinine is 1.67 Objective - Vital Signs Vital signs: Vital Signs Temp 97.4 F L 04/14/24 08:00 Pulse 117 H 04/14/24 09:00 Resp 19 04/14/24 09:00 BP 181/104 04/14/24 09:00 Pulse Ox 94 L 04/14/24 09:15 FiO2 Intake & Output 04/13/24 04/14/24 04/14/24 18:59 06:59 18:59 Intake Total 9721.855 5387.235 220 Output Total 540 585 100 Balance 848.861 956.235 120 Weight 91.4 kg Intake: IV 1080 1220 170 0.9 at KVO 85 120 20 Dextrose 5% in Water 1, 620 000 ml @ 60 mls/hr IV . [id number] DAVID with Sodium Bicarb (1 Meq/ml) 150 ml Rx#:[id number] Dextrose 5%-0.45% NaCl 1, 375 900 150 000 ml @ 75 mls/hr IV . [id number] DAVID Rx#:[id number] Piperacillin-Tazobactam 3 200 .375 gm In Sodium Chloride 0.9% 100 ml @ 25 mls/hr IVPB Q8H DAVID Rx#: [id number] Intake, IV Titration 308.861 231.235 Amount Amiodarone 450 mg In 250 Dextrose 5% in Water 250 ml @ 0.5 MG/MIN 16.667 mls/hr IV .Q15H DAVID Rx#: [id number] Dexmedetomidine/0.9% NaCl 58.861 62.117 (Pmx) 400 mcg In Empty Bag 1 bag @ 0.2 MCG/KG/HR 4.545 mls/hr IV .Q22H1M [facility] Rx#:[id number] Heparin Sod,Pork in 0.45% 169.118 NaCl 25,000 unit In 0.45 % NaCl 1 250ml.bag @ 11. 04 UNITS/KG/HR 10.002 mls /hr IV .Q24H [facility] Rx#: [id number] Tube Feeding 60 20 Other 30 30 Output: Urine 540 585 100 Other: Voiding Method Indwelling Catheter Indwelling Catheter Indwelling Catheter - Exam GENERAL DESCRIPTION: An elderly male lying in bed in no distress RESPIRATORY SYSTEM: Unlabored breathing , decreased breath sounds at bases HEART: S1 S2 regular rate and rhythm , ABDOMEN: Soft , no tenderness EXTREMITIES: Swelling to the leg but no redness - Labs CBC & Chem 7: 04/15/24 06:01 04/15/24 06:01 Labs: Abnormal Lab Results - Last 24 Hours (Table) 04/13/24 04/13/24 04/13/24 Range/Units 11:13 11:14 18:09 RBC (4.30-5.90) m/uL Hgb (13.0-17.5) gm/dL Hct (39.0-53.0) % MCV (80.0-100.0) fL MCH (25.0-35.0) pg RDW (11.5-15.5) % Plt Count (150-450) k/uL Lymphocytes # (Manual) (1.0-4.8) k/uL PT (10.0-12.5) sec INR 1.2 H (<1.2) APTT 30.3 H (22.0-30.0) sec Potassium (3.5-5.1) mmol/L Chloride (98-107) mmol/L Carbon Dioxide (22-30) mmol/L BUN (9-20) mg/dL Creatinine (0.66-1.25) mg/dL Glucose (74-99) mg/dL POC Glucose (mg/dL) 203 H 233 H (70-110) mg/dL Calcium (8.4-10.2) mg/dL 04/13/24 04/13/24 04/14/24 Range/Units 19:16 19:44 05:29 RBC 3.05 L (4.30-5.90) m/uL Hgb 10.7 L (13.0-17.5) gm/dL Hct 31.9 L (39.0-53.0) % MCV 104.9 H (80.0-100.0) fL MCH 35.1 H (25.0-35.0) pg RDW 16.9 H (11.5-15.5) % Plt Count 41 L (150-450) k/uL Lymphocytes # (Manual) 0.24 L (1.0-4.8) k/uL PT (10.0-12.5) sec INR (<1.2) APTT 34.9 H (22.0-30.0) sec Potassium (3.5-5.1) mmol/L Chloride (98-107) mmol/L Carbon Dioxide (22-30) mmol/L BUN (9-20) mg/dL Creatinine (0.66-1.25) mg/dL Glucose (74-99) mg/dL POC Glucose (mg/dL) 234 H (70-110) mg/dL Calcium (8.4-10.2) mg/dL 04/14/24 04/14/24 04/14/24 Range/Units 05:29 06:33 06:46 RBC (4.30-5.90) m/uL Hgb (13.0-17.5) gm/dL Hct (39.0-53.0) % MCV (80.0-100.0) fL MCH (25.0-35.0) pg RDW (11.5-15.5) % Plt Count (150-450) k/uL Lymphocytes # (Manual) (1.0-4.8) k/uL PT 12.7 H (10.0-12.5) sec INR 1.2 H (<1.2) APTT 32.3 H (22.0-30.0) sec Potassium 5.3 H (3.5-5.1) mmol/L Chloride 109 H (98-107) mmol/L Carbon Dioxide 19 L (22-30) mmol/L BUN 21 H (9-20) mg/dL Creatinine 1.67 H (0.66-1.25) mg/dL Glucose 289 H (74-99) mg/dL POC Glucose (mg/dL) 334 H (70-110) mg/dL Calcium 8.3 L (8.4-10.2) mg/dL Microbiology - Last 24 Hours (Table) 04/10/24 12:33 Blood Culture - Preliminary Blood Assessment and Plan (1) Aspiration pneumonia Current Visit: Yes Status: Acute Code(s): J69.0 - PNEUMONITIS DUE TO INHALATION OF FOOD AND VOMIT SNOMED Code(s): 101358127 (2) Sepsis Current Visit: No Status: Acute Code(s): A41.9 - SEPSIS, UNSPECIFIED ORGANISM SNOMED Code(s): 23725339 Plan: 1patient with initially presented to the hospital with sepsis in this patient who did have fever elevated white count tachycardia meeting criteria for SIRS also likely right lower lobe pneumonia and likely of aspiration etiology, however the patient significant mental status changes not entirely excluded by aspiration pneumonia and will need to rule out underlying central etiology such as encephalitis 2-patient to continue with Zosyn to cover for aspiration pneumonia, try to obtain a sputum 3patient did have LP completed this morning results will be followed and med ication adjusted if needed and granddaughter at the bedside question concern answered Dictation was produced using BT[employer] dictation software. please excuse any grammatical, word or spelling errors. Time with Patient: Less than 30
--- NOTE | 2024-04-15 13:34 | P.PN ---
Subjective Progress Note Date: 04/15/24 Principal diagnosis: Reason for follow-up is aspiration pneumonia and a question of encephalitis Patient is a 79-year-old male with a past medical history significant for diabetes mellitus hypertension hyperlipidemia PE rheumatoid arthritis patient presenting to the hospital for evaluation of multiple falls and weakness patient did have a fever with a CT of the chest did shows evidence of left lower lobe consolidation and secretion in the trachea concerning for aspiration. On today's evaluation that is 04/15/2024, the patient continues to be afebrile, the patient is on 6 L nasal cannula oxygen does not seem to be any distress patient is hemodynamically stable not requiring any pressor support no vomiting diarrhea any change reported by nursing staff the patient remains to be lethargic unresponsive and did not answer any question. Patient white count 7.8, creatinine is 1.75 patient did have LP completed yesterday with 0 WBC glucose was 155 protein was 111 Objective - Vital Signs Vital signs: Vital Signs Temp 97.8 F 04/15/24 12:00 Pulse 91 04/15/24 13:00 Resp 18 04/15/24 13:00 BP 138/69 04/15/24 13:00 Pulse Ox 93 L 04/15/24 13:00 FiO2 Intake & Output 04/14/24 04/15/24 04/15/24 18:59 06:59 18:59 Intake Total 1899.087 0197.614 836.580 Output Total 335 375 320 Balance 6422.464 1221.614 516.580 Weight 91.4 kg 93.4 kg Intake: IV 950 1135 695 0.9 at KVO 50 110 70 Dextrose 5%-0.45% NaCl 1, 375 000 ml @ 75 mls/hr IV . [id number] [facility] Rx#:[id number] Piperacillin-Tazobactam 3 200 100 .375 gm In Sodium Chloride 0.9% 100 ml @ 25 mls/hr IVPB Q8H [facility] Rx#: [id number] Sodium Chloride 0.45% 1, 525 825 525 000 ml @ 75 mls/hr IV . [id number] [facility] Rx#:[id number] Intake, IV Titration 301.135 426.614 121.580 Amount Amiodarone 450 mg In 250 146.67 Dextrose 5% in Water 250 ml @ 0.5 MG/MIN 16.667 mls/hr IV .Q15H [facility] Rx#: [id number] Dexmedetomidine/0.9% NaCl 51.135 279.944 121.580 (Pmx) 400 mcg In Empty Bag 1 bag @ 0.2 MCG/KG/HR 4.545 mls/hr IV .Q22H1M [facility] Rx#:[id number] Tube Feeding 50 190 20 Other 60 90 Output: Urine 335 375 320 Other: Voiding Method Indwelling Catheter Indwelling Catheter Indwelling Catheter - Exam GENERAL DESCRIPTION: An elderly male lying in bed in no distress RESPIRATORY SYSTEM: Unlabored breathing , decreased breath sounds at bases HEART: S1 S2 regular rate and rhythm , ABDOMEN: Soft , no tenderness EXTREMITIES: Swelling to the leg but no redness - Labs CBC & Chem 7: 04/15/24 06:01 04/15/24 06:01 Labs: Abnormal Lab Results - Last 24 Hours (Table) 04/14/24 04/14/24 04/14/24 Range/Units 10:55 12:29 12:29 RBC (4.30-5.90) m/uL Hgb (13.0-17.5) gm/dL Hct (39.0-53.0) % MCV (80.0-100.0) fL RDW (11.5-15.5) % Plt Count (150-450) k/uL Lymphocytes # (Manual) (1.0-4.8) k/uL Chloride (98-107) mmol/L BUN (9-20) mg/dL Creatinine (0.66-1.25) mg/dL Glucose (74-99) mg/dL POC Glucose (mg/dL) (70-110) mg/dL Total Protein (6.3-8.2) g/dL Albumin (3.5-5.0) g/dL Angiotensin Convert Enz 6 L (8-52) U/L CSF RBC 13 H (0-10) u/L CSF Glucose 155 H (40-70) mg/dL CSF Total Protein 111 H (12-60) mg/dL Cycl Citrul Peptide IgG 28.9 H (<=3.9) U/mL Cyclic Citrull Peptide Positive A (Negative) 04/14/24 04/14/24 04/15/24 Range/Units 16:29 20:28 06:01 RBC 3.05 L (4.30-5.90) m/uL Hgb 10.4 L (13.0-17.5) gm/dL Hct 31.4 L (39.0-53.0) % MCV 103.1 H (80.0-100.0) fL RDW 16.8 H (11.5-15.5) % Plt Count 100 L D (150-450) k/uL Lymphocytes # (Manual) 0.62 L (1.0-4.8) k/uL Chloride (98-107) mmol/L BUN (9-20) mg/dL Creatinine (0.66-1.25) mg/dL Glucose (74-99) mg/dL POC Glucose (mg/dL) 176 H 214 H (70-110) mg/dL Total Protein (6.3-8.2) g/dL Albumin (3.5-5.0) g/dL Angiotensin Convert Enz (8-52) U/L CSF RBC (0-10) u/L CSF Glucose (40-70) mg/dL CSF Total Protein (12-60) mg/dL Cycl Citrul Peptide IgG (<=3.9) U/mL Cyclic Citrull Peptide (Negative) 04/15/24 04/15/24 04/15/24 Range/Units 06:01 06:51 11:10 RBC (4.30-5.90) m/uL Hgb (13.0-17.5) gm/dL Hct (39.0-53.0) % MCV (80.0-100.0) fL RDW (11.5-15.5) % Plt Count (150-450) k/uL Lymphocytes # (Manual) (1.0-4.8) k/uL Chloride 108 H (98-107) mmol/L BUN 28 H (9-20) mg/dL Creatinine 1.75 H (0.66-1.25) mg/dL Glucose 172 H (74-99) mg/dL POC Glucose (mg/dL) 205 H 182 H (70-110) mg/dL Total Protein 5.4 L (6.3-8.2) g/dL Albumin 2.6 L (3.5-5.0) g/dL Angiotensin Convert Enz (8-52) U/L CSF RBC (0-10) u/L CSF Glucose (40-70) mg/dL CSF Total Protein (12-60) mg/dL Cycl Citrul Peptide IgG (<=3.9) U/mL Cyclic Citrull Peptide (Negative) Microbiology - Last 24 Hours (Table) 04/14/24 10:55 CSF Gram Stain - Preliminary Cerebral Spinal Fluid CSF Culture - Preliminary Assessment and Plan (1) Aspiration pneumonia Current Visit: Yes Status: Acute Code(s): J69.0 - PNEUMONITIS DUE TO INHALATION OF FOOD AND VOMIT SNOMED Code(s): 270728643 (2) Sepsis Current Visit: No Status: Acute Code(s): A41.9 - SEPSIS, UNSPECIFIED ORGANISM SNOMED Code(s): 66242818 Plan: 1patient with initially presented to the hospital with sepsis in this patient who did have fever elevated white count tachycardia meeting criteria for SIRS also likely right lower lobe pneumonia and likely of aspiration etiology, however the patient significant mental status changes not entirely excluded by aspiration pneumonia and will need to rule out underlying central etiology such as encephalitis 2-patient did have resolution of his fever white count is normal patient to Zosyn to cover for aspiration pneumonia, try to obtain a sputum 3patient did have LP completed on 04/14/2024 no WBC protein mildly elevated not suggestive of encephalitis Results has been discussed with the family at the bedside admitting has talked to the family and possible plan is for hospice if no improvement by tomorrow Dictation was produced using [employer] dictation software. please excuse any grammatical, word or spelling errors. Time with Patient: Less than 30
[2024-04-15 15:40] LABS: Hepatitis B Surface Antigen Nonreactive (Nonreactive); Hepatitis C IgG Antibody Nonreactive (Nonreactive)
--- NOTE | 2024-04-15 16:27 | P.PN ---
Subjective Progress Note Date: 04/15/24 79-year-old male with a history of diabetes, deafness, hyperlipidemia, hypertension, pulmonary embolism, rheumatoid arthritis, and multiple bilateral pulmonary nodules, secondary to rheumatoid arthritis. The patient resides at [facility], and apparently fell twice, and was brought into the [facility] department, to be evaluated. He is seen down in the emergency department, room 16. He is currently on 3 L nasal cannula. He is getting saline at 75 cc an hour. He has received 3 L of fluid bolus, and unfortunately his blood pressure continues to be low at 75/45. The patient is a bit lethargic and sleepy, not a particular good historian. He was not sure why he was in the emergency department. He is not even sure why he was at [facility]. Anyway, the patient is evaluated. The patient will need further monitoring and management, and will be admitted to the intensive care unit. He likely will need some norepinephrine, for his low blood pressure since he has not responded to fluids. In addition, we will have cardiology see him given the fact that there is some mild EKG changes, as well as an elevated troponin. He may be a patient with a non-ST segment elevation myocardial infarction. Current labs include a white count 13.9, hemoglobin 9.2, macro 34.2, and a platelet count of 125,000. Sodium 132, potassium 4.6, chlorides 106, CO2 22, BUN 30, creatinine 2.46. Troponin was 0.522. N-terminal proBNP was 1030. Albumin was 2.6. He tested negative for influenza, RSV, and coronavirus. Chest x-ray showed no acute cardiopulmonary disease. CT scan of the brain, cervical spine, and x-rays of the pelvis, are all negative. The patient was placed on cefepime by the primary service. A procalcitonin level is pending. On 04/12/2024, the patient remains encephalopathic and occasionally agitated. Earlier this morning, prior to my arrival, the patient was given Haldol 4 mg IV and morphine 4 mg IV and currently is quite lethargic and obtunded. He remains on 2 L of oxygen by nasal cannula with a pulse ox of 99%. The patient presented to us with episodes of fever and the exact source is not clear. The chest x-ray shows a new onset opacity in the right lateral lung field and based on that, a CAT scan of the chest will be ordered. Meanwhile, as mentioned earlier, the patient has areas of bilateral cavitating pulmonary infiltrates and has been investigated in the past via bronchoscopy that yielded no microbial growth or malignancy. 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 Fungal stains and the mycobacterial stains came back negative. There was numerous large caseating adenomas with acute on chronic inflammatory changes and this was thought to be related to an underlying connective tissue disease. The patient has been maintained on prednisone 10 mg p.o. daily on outpatient basis. On today's evaluation, the sodium levels at 140, bicarbonate 16 with a BUN of 25 and a creatinine of 1.9. Noted the patient presented to us with a creatinine of 2.4 he does not an underlying chronic kidney disease. The risk is at 6.8 with hemoglobin 8.4 and a platelet count of 77. The patient has fluctuating platelet counts over the past 1 year. He remains on IV cefepime. He is also on anticoagulation with Eliquis 2.5 mg p.o. twice a day. He is off pressors. The procalcitonin level was at 0.6. On 04/13/2024, patient is being seen for a follow-up. The patient remains lethargic, confused, nonresponsive. Sitter is at the bedside as the patient is occasionally getting agitated and for that reason the patient was started on Precedex and Precedex is running at 0.2 mcg/kg/h. Unable to communicate at this point in time as the patient is quite obtunded. In terms of his respiratory status, the patient remains on oxygen and currently is on 7 L of O2 nasal cannula with a pulse ox of 99%. The repeat chest x-ray from today is showing diffuse bilateral airspace disease with pleural effusions loculated along the right pleural border. CAT scan of the chest was also obtained yesterday and there are some new changes compared to the earlier chest x-ray and CAT scan findings. In summary, there is a loculated right apical pleural effusion along with loculated bilateral pleural effusion along the pleural borders more so on the right. There is increase in the size of the pleural nodularity in the right lung with increased in the size of the masslike consolidation in the left lung base. Possibility of a aspiration cannot be completely ruled out as the patient had some opacities and secretions within the trachea and right mainstem bronchus. There is also evidence of cardiomegaly, hepatic cirrhosis and diverticulosis. The patient is hemodynamically stable on no pressors. Overnight, the patient went into atrial fibrillation with rapid ventricular response. Started on amiodarone protocol which is running at 0.5 mg/min and the patient's rhythm is back to sinus. BUN is 21 with a creatinine of 1.7 and sodium levels of 138 and a potassium level of 3.7. White cell count is 6.2 with a hemoglobin of 8.5. In terms of the rheumatologic profile, the patient's rheumatoid factor came back elevated at 270. Antinuclear antibodies, anti-Bell antibodies, anti-[employer] antibodies came back negative. Awaiting the p-ANCA and c- ANCA titers. Based on his underlying aspiration that occurred yesterday, the patient will be switched to IV Zosyn. I am also going to start the patient on empiric treatment with systemic steroids and the patient was started on IV Solu- Medrol 60 mg every 6 hours. CAT scan of the brain was also done yesterday that showed no acute intracranial process and no nonspecific white matter changes. Doppler of the carotids completed yesterday showed 50 to 70% stenosis in the carotid bifurcation of the right otherwise negative. On today's evaluation of 04/14/2024, the patient remains clinically unchanged. Confused, obtunded and has obvious diminished level of consciousness along with episodes of agitation and based on that, the patient was kept on Precedex which is currently running at 0.3 mcg/kg/min. No focal neurological deficit. No seizure activity. EEG was done yesterday and repeat EEG was also done this morning. EEG is consistent with severe slowing suggestive of generalized cerebral dysfunction consistent with toxic metabolic encephalopathy. There is no evidence of any seizure activity. The patient remains afebrile. The patient remained hemodynamically stable. Triple-lumen catheter established yesterday for IV access and the patient remains on D5 half-normal saline at rate of 75 cc an hour. Urine output is adequate in the order of 30 cc to 50 cc an hour. Car diac rhythm remains sinus. The patient is currently off IV heparin and a lumbar puncture is to follow. The patient's also has a Dobbhoff catheter and vital AF was started at the rate of 10 cc an hour. On today's blood work, the white cell count is at 4.7 with a hemoglobin 10.7 and a platelet count of 41. BUN is 21 with a creatinine of 1.6 and a sodium levels at 138. Currently on IV Zosyn. Th e patient is also on IV Solu-Medrol 60 mg every 6 hours. The corrected to disease markers were all negative except for a positive rheumatoid factor. The p-ANCA and c-ANCA were negative. Rest of the SHONDA workup and CHERYLE was also negative. Chest x-ray remains abnormal with diffuse bilateral airspace disease and the patient remains on oxygen at 8 L/min nasal cannula. On 04/15/2024, the patient remains confused and delirious. The patient remains on oxygen 8 L minute nasal cannula. The patient remains on Precedex which is currently running at 0.9 mcg/kg/h and the patient is also requiring morphine to control his agitation. The patient remains on IV Solu-Medrol. The patient remains on IV Zosyn. In terms of his respiratory status, no interval worsening in oxygenation and the patient's chest x-ray from today shows stable bilateral pulmonary filtrates probably somewhat improved aeration compared to yesterday's chest x-ray. Meanwhile, the EEG showed diffuse slowing with toxic metabolic encephalopathy and cerebral dysfunction. No evidence of any seizure activity. The patient's white cell count remains at 7.8 with a hemoglobin of 10.4 and a platelet count of 100. BUN is 28 with a creatinine of 1.75 and a sodium levels at 140. The patient has a Dobbhoff and the patient is on Nepro running at 30 cc an hour. Cardiac rhythm is sinus. No focal neurological deficits. The lumbar puncture was completed and the patient has no nucleated cells. Cultures and cytology are still pending for now. The angiotensin-converting enzyme level was only at 6. Objective - Vital Signs Vital signs: Vital Signs Temp 97.8 F 04/15/24 16:00 Pulse 98 04/15/24 16:00 Resp 15 04/15/24 16:00 BP 158/91 04/15/24 16:00 Pulse Ox 98 04/15/24 16:00 FiO2 Intake & Output 04/14/24 04/15/24 04/15/24 18:59 06:59 18:59 Intake Total 2687.875 6124.614 1091.580 Output Total 335 375 490 Balance 8529.538 2988.614 601.580 Weight 91.4 kg 93.4 kg Intake: IV 950 1135 950 0.9 at KVO 50 110 100 Dextrose 5%-0.45% NaCl 1, 375 000 ml @ 75 mls/hr IV . [id number] [facility] Rx#:[id number] Piperacillin-Tazobactam 3 200 100 .375 gm In Sodium Chloride 0.9% 100 ml @ 25 mls/hr IVPB Q8H [facility] Rx#: [id number] Sodium Chloride 0.45% 1, 525 825 750 000 ml @ 75 mls/hr IV . [id number] [facility] Rx#:[id number] Intake, IV Titration 301.135 426.614 121.580 Amount Amiodarone 450 mg In 250 146.67 Dextrose 5% in Water 250 ml @ 0.5 MG/MIN 16.667 mls/hr IV .Q15H [facility] Rx#: [id number] Dexmedetomidine/0.9% NaCl 51.135 279.944 121.580 (Pmx) 400 mcg In Empty Bag 1 bag @ 0.2 MCG/KG/HR 4.545 mls/hr IV .Q22H1M [facility] Rx#:[id number] Tube Feeding 50 190 20 Other 60 90 Output: Urine 335 375 490 Other: Voiding Method Indwelling Catheter Indwelling Catheter Indwelling Catheter - Exam Patient has demonstrating diminished level of consciousness, currently on Precedex. Unable to communicate. Unable to follow commands. Quite sleepy and lethargic.. Occasional agitation was noted and the patient was placed on Precedex. And there is a sitter at the bedside. Currently, he is on 8 L of oxygen by nasal cannula. Dobbhoff catheter is also in place. The patient remains on Precedex. HEENT examination is grossly unremarkable. Mucous membranes are moist. No oral lesions. Neck supple. Full range of motion. No adenopathy thyromegaly or neck vein distention. The patient has a short neck with crowding of the posterior pharynx Cardiovascular examination reveals regular rhythm rate. S1-S2 normal. No S3 or S4. No discernible murmur noted. Lungs reveal clear breath sounds. Breath sounds are equal bilaterally. No adventitious lung sounds including wheezes rhonchi or crackles. Abdomen soft bowel sounds are heard. No masses or tenderness. Extremities are intact. No cyanosis clubbing or edema. Skin is without rash or lesion. Neurologic examination is brief but nonfocal. Pupils are equal reactive to light. No focal neurological deficits. No cranial nerve deficits. No facial asymmetry. Unable to do a motor and sensory evaluation. Gait cannot be evaluated. The patient is sedated currently on Precedex. - Labs CBC & Chem 7: 04/15/24 06:01 04/15/24 06:01 Labs: Abnormal Lab Results - Last 24 Hours (Table) 04/14/24 04/14/24 04/14/24 Range/Units 10:55 12:29 12:29 RBC (4.30-5.90) m/uL Hgb (13.0-17.5) gm/dL Hct (39.0-53.0) % MCV (80.0-100.0) fL RDW (11.5-15.5) % Plt Count (150-450) k/uL Lymphocytes # (Manual) (1.0-4.8) k/uL Chloride (98-107) mmol/L BUN (9-20) mg/dL Creatinine (0.66-1.25) mg/dL Glucose (74-99) mg/dL POC Glucose (mg/dL) (70-110) mg/dL Total Protein (6.3-8.2) g/dL Albumin (3.5-5.0) g/dL Angiotensin Convert Enz 6 L (8-52) U/L CSF RBC 13 H (0-10) u/L CSF Glucose 155 H (40-70) mg/dL CSF Total Protein 111 H (12-60) mg/dL Cycl Citrul Peptide IgG 28.9 H (<=3.9) U/mL Cyclic Citrull Peptide Positive A (Negative) 04/14/24 04/14/24 04/15/24 Range/Units 16:29 20:28 06:01 RBC 3.05 L (4.30-5.90) m/uL Hgb 10.4 L (13.0-17.5) gm/dL Hct 31.4 L (39.0-53.0) % MCV 103.1 H (80.0-100.0) fL RDW 16.8 H (11.5-15.5) % Plt Count 100 L D (150-450) k/uL Lymphocytes # (Manual) 0.62 L (1.0-4.8) k/uL Chloride (98-107) mmol/L BUN (9-20) mg/dL Creatinine (0.66-1.25) mg/dL Glucose (74-99) mg/dL POC Glucose (mg/dL) 176 H 214 H (70-110) mg/dL Total Protein (6.3-8.2) g/dL Albumin (3.5-5.0) g/dL Angiotensin Convert Enz (8-52) U/L CSF RBC (0-10) u/L CSF Glucose (40-70) mg/dL CSF Total Protein (12-60) mg/dL Cycl Citrul Peptide IgG (<=3.9) U/mL Cyclic Citrull Peptide (Negative) 04/15/24 04/15/24 04/15/24 Range/Units 06:01 06:51 11:10 RBC (4.30-5.90) m/uL Hgb (13.0-17.5) gm/dL Hct (39.0-53.0) % MCV (80.0-100.0) fL RDW (11.5-15.5) % Plt Count (150-450) k/uL Lymphocytes # (Manual) (1.0-4.8) k/uL Chloride 108 H (98-107) mmol/L BUN 28 H (9-20) mg/dL Creatinine 1.75 H (0.66-1.25) mg/dL Glucose 172 H (74-99) mg/dL POC Glucose (mg/dL) 205 H 182 H (70-110) mg/dL Total Protein 5.4 L (6.3-8.2) g/dL Albumin 2.6 L (3.5-5.0) g/dL Angiotensin Convert Enz (8-52) U/L CSF RBC (0-10) u/L CSF Glucose (40-70) mg/dL CSF Total Protein (12-60) mg/dL Cycl Citrul Peptide IgG (<=3.9) U/mL Cyclic Citrull Peptide (Negative) Microbiology - Last 24 Hours (Table) 04/14/24 10:55 CSF Gram Stain - Preliminary Cerebral Spinal Fluid CSF Culture - Preliminary Assessment and Plan Plan: Acute febrile illness with development of a new opacity along the right lateral chest wall. Rule out pneumonia with developing effusion. Rule out underlying connective tissue disease/vasculitis with interval progression of his disease as the patient has caseating glaucomatous changes along with cavitary pulmonary infiltrates as noted on previous CAT scan and PET scan imaging and a wedge biopsy of the lung has confirmed the findings. Noted to follow-up CAT scan of the chest showed interval progression of the loculated pleural effusion and there is a loculated pocket in the right apex in addition to loculation along the right lateral chest border and some on the left in addition to pleural nodularity and consolidation of left lung base. Superimposed aspiration pneumonia cannot be completely excluded. The chest x-ray from today showed diffuse bilateral airspace disease. The patient is currently on 8 L of oxygen by nasal cannula. Noted the patient has not spiked any further temperature since admission. , The patient is currently normotensive Status post fall Hypotension, recovered Encephalopathy, currently under investigation the CAT scan of the brain is negative, currently on Precedex to control agitation. The mental status remains impaired and the patient remains unresponsive, unable to communicate, and EEG showed diffuse encephalopathy without any seizure activity. The patient is showing occasional agitation and the patient is currently on Precedex and also using morphine to control agitation. Abnormal troponins, rule out non-ST segment elevation myocardial infarction, versus occult infection/sepsis, essentially a type II ischemia Chronic kidney disease stage III, creatinine is improving as the patient acute component of kidney injury on top of chronic kidney failure, renal function is improved and the creatinine is down to 1.7 Anion gap metabolic acidosis, recovered History of hypertension. History of hyperlipidemia. History of diabetes mellitus. History of pulmonary embolism, the patient is maintained on anticoagulation with Eliquis 2.5 mg p.o. twice a day. Thrombocytopenia, improving and the patient is currently off IV heparin History of rheumatoid arthritis., Elevated rheumatoid factor Multiple bilateral pulmonary nodules, consistent with rheumatoid pulmonary nodules. The patient has caseating granulomas based on a previous wedge biopsy of the lung. The microbial and the fungal and AFB cultures are all negative. Bacterial cultures are also negative. The rest of the connective tissue disease workup yielded positive rheumatoid factor, otherwise negative p-ANCA, c-ANCA, CHERYLE, SHONDA screen. History of diverticular disease. Paroxysmal atrial fibrillation with rapid ventricular response, currently back into normal sinus rhythm on amiodarone. Plan: Continue D5 half-normal saline at rate of 75 cc an hour Blood work for rheumatoid factor, CHERYLE, SHONDA screen, was completed and the patient was positive for rheumatoid factor Negative p-ANCA and awaiting c-ANCA Check a BLAINE level was checked and the level is only at 6 CAT scan of the chest, without contrast was noted and there is suspicion for superimposed aspiration Continue IV antibiotics and the patient will be switched to IV Zosyn Continue empiric steroids 60 mg IV Solu-Medrol every 6 hours Check gamma interferon assay, results are still pending for now patient is on oral amiodarone Patient will be started back on anticoagulation with Eliquis Monitor platelet count Lumbar puncture was done and the patient has no significant white cells within the CSF. Cultures and cytology are still pending EEG is consistent with encephalopathy Dobbhoff catheter has been inserted and the patient receiving enteral feeding for nutritional support Monitor renal function, renal function is improving Aspiration precautions Will start the patient on Seroquel 100 mg p.o. twice a day and will gradually wean off the Precedex Laxatives for facilitation of bowel movements, patient will be given milk of mag High risk for intubation mechanical ventilation Will continue to follow condition is critical and will continue to make further recommendations based on his progress. This evaluation was done more than 30 minutes.
[2024-04-15 17:05] LABS: Glucose,Whole Blood 239 mg/dL (70-110)
[2024-04-15 19:42] LABS: Glucose,Whole Blood 241 mg/dL (70-110)
--- NOTE | 2024-04-15 20:59 | P.PN ---
Progress Note - Text Progress Note Date: 04/15/24 This is a pleasant 79 years old male who was transferred from [facility] for multiple falls in 24 hours. Patient currently cannot provide information it was obtained from staff, records and at bedside As per he was recently discharged from [facility] about 1 week earlier for CHF, acute kidney injury and pneumonia. These are per patient. On admission patient was found to be hypotensive, blood pressure 109/61 went down to 63/41, currently 85/40 Patient currently cannot provide information and he is nonverbal. at bedside There is very small pressure ulcers in the lower back. No tachypnea, abdomen looks soft. Urine catheter was placed in the hospital with clear urine. No evidence of suprapubic tenderness. No other rash. He has small abrasion on the right arm. Pupils are equal and reactive to light. Neck looks supple. No leg edema. On admission he had low-grade fever of 100.5 Labs reviewed he has leukocytosis of 13.9, hemoglobin 11.2, low platelet count 125, creatinine 2.4 with baseline 1.3-1.6 Liver enzymes, INR were unremarkable Influenza A and type B, RSV, SARS (coronavirus) are and detected Urinalysis showed glucosuria but no ketonuria Elevated troponin but is chronically elevated proBNP is slightly elevated 1030 CT of the head and neck is negative for acute process in either Pelvic x-ray is negative for acute process or fracture or dislocation EKG shows sinus rhythm at [address]-T changes Patient was received 3 L in the emergency room and started on normal sinus 75 mL/h also on ceftriaxone. supervisor [employer] 18 was called and patient was transferred to the ICU and he was started on Levophed On review of the records: Previous CT of the chest showing scattered cavitary lesions and pulmonary nodules with left lower lung suspected mass. He s/p bronchoscopy on 10/04/2023 was negative cytology for malignant cells. Also patient had PET scan on 10/23/23 showing new uptake in the right pleural costophrenic angle and new punctate area within mediastinum with right peribronchial lymph nodes and multiple stable pulmonary nodules and nonspecific changes posterior to the coccyx and left pubic ramus could be infection, injury versus metastasis. Status post wedge resection of the left lung on 10/2023 Patient is more awake today, sitting in bed, trying to eat his breakfast, at bedside Look patient looks pleasant, slightly agitated and anxious, he follows command. He looks calm and relaxed. He denies significant tachypnea however he still has mild heavy breathing with no cough or chest pain Abdomen soft with no symptoms Valiente catheter in place Levophed was off since the night before Getting IV fluid normal saline at 75 mL/h 85. WBC normal 9.2, hemoglobin slightly low at 9.8. Creatinine slightly lower at 2.3. It was 2.4 yesterday Creatinine slightly low, has thrombocytopenia at 85 And remains on cefepime. Pro- Calcitonin was elevated 0.61 04/12 Patient today remains in the ICU, his mentation got worse, he is not answering questions, not following commands, staff does not feel safe to give him pills orally. He has restraints and enforcement safety officer at bedside Yesterday morning he was more awake sitting up in bed. 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 CT of the brain on admission was negative for acute process. Will going to consult neurology service for this purpose. His infection is improving with his leukocytosis is down, fever stopped WBC 6.8, hemoglobin 9.4, platelet count 77, creatinine trending down 2.4 down to 1.9, with baseline 1.3-1.6. Blood pressure on the low side, fever subsided. Blood culture still pending Currently on ceftriaxone and normal saline. April 13: ICU. Patient vomited overnight. Aspirated. Has been in and out of A-fib with rapid ventricular rate. Drips include IV amiodarone, Precedex, and bicarbonate. Patient on 7 L high flow. Intermittently agitated. Patient's arms are bruising and some weeping. Patient lethargic. Not able to communicate. Chest x-ray shows bilateral infiltrates April 14: ICU. Patient remains on IV Zosyn. Delirious. Based on EEG findings patient started on Keppra. Patient's family at the bedside. On 8 L nasal cannula. Lumbar puncture pending results pending. Spoke at length with patient's family at the bedside. Discussed prognosis guarded. Patient had multiple medical issues for a long time. Will see how patient progresses clinically. They did express that they do not want the patient to suffer. ID is also following the case. NG tube feeding has been started. Chest x-ray shows bilateral diffuse airway disease April 15: ICU. Patient was agitated requiring Seroquel and. Also on Precedex 0.7 mics. Tube feeding through NG tube at 30 cc an hour. Sinus rhythm. No bowel movement. Good urine output. Dose of Keppra was increased to 1000 mg twice daily per neurology based on EEG results. On oxygen 8 L. IV Zosyn. Had a lengthy family meeting at the bedside. Include patient's daughter and . Advance care planning [April 15, 2024] Went through patient's each medical condition line by line. And the treatment. They understand patient rather delirious. His quality of life is affected. They did not want the patient to be in pain. We did lean towards the option of hospice. They do not want the patient to at the hospital and I did explain that is something we cannot determine. Option of patient to taking home if not doing too well and letting him there also was discussed. It was finally decided to continue with the current treatment plan. Get a informational visit from hospice. Including [facility] and outpatient. Several questions answered. Time spent for ACP about 30 minutes Active Medications Acetaminophen (Acetaminophen Tab 325 Mg Tab) 650 mg PO Q6HR PRN PRN Reason: Fever Last Admin: 04/10/24 23:46 Dose: 650 mg Amiodarone HCl (Amiodarone 200 Mg Tab) 400 mg PO BID [facility] Last Admin: 04/15/24 19:47 Dose: 400 mg Apixaban (Apixaban 5 Mg Tab) 5 mg PO BID [facility] Last Admin: 04/15/24 19:47 Dose: 5 mg Dextrose/Water (Dextrose 50% Syringe 50 Ml) 25 ml IVP PER PROTOCOL PRN; Protocol PRN Reason: Hypoglycemia Dextrose/Water (Dextrose 50% Syringe 50 Ml) 50 ml IVP PER PROTOCOL PRN; Protocol PRN Reason: Hypoglycemia Famotidine (Famotidine 20 Mg Tab) 10 mg PO Q12HR [facility] Last Admin: 04/15/24 19:47 Dose: 10 mg Gabapentin (Gabapentin 300 Mg Cap) 300 mg PO BID [facility] Last Admin: 04/15/24 19:50 Dose: 300 mg Haloperidol Lactate (Haloperidol Lactate 5 Mg/Ml 1 Ml Vial) 4 mg IVP Q4HR PRN PRN Reason: Agitation or Acute Psychosis Last Admin: 04/15/24 08:25 Dose: 4 mg Haloperidol Lactate (Haloperidol Lactate 5 Mg/Ml 1 Ml Vial) 8 mg IVP Q4HR PRN PRN Reason: Agitation or Acute Psychosis Last Admin: 04/12/24 02:00 Dose: 8 mg Norepinephrine Bitartrate 4 mg (/ Sodium Chloride) 254 mls @ 9.851 mls/hr IV .Q24H [facility]; Protocol Last Admin: 04/15/24 02:53 Dose: Not Given Dexmedetomidine HCl 400 mcg/ (IV Solution) 100 mls @ 4.545 mls/hr IV .Q22H1M [facility]; Protocol Last Admin: 04/15/24 18:19 Dose: 0.6 mcg/kg/hr, 13.635 mls/hr Piperacillin Sod/Tazobactam (Sod 3.375 gm/ Sodium Chloride) 100 mls @ 25 mls/hr IVPB Q8H [facility]; Protocol Last Admin: 04/15/24 19:38 Dose: 25 mls/hr Sodium Chloride (Saline 0.45%) 1,000 mls @ 75 mls/hr IV .[id number] [facility] Last Admin: 04/15/24 15:07 Dose: 75 mls/hr Insulin Aspart (Insulin Aspart (Novolog) 100 Unit/Ml Vial) 0 unit SQ ACHS [facility]; Protocol Last Admin: 04/15/24 19:48 Dose: 4 unit Insulin Detemir (Insulin Detemir (Levemir) 100 Unit/Ml Syr) 16 unit SQ HS [facility] Last Admin: 04/15/24 19:48 Dose: 16 unit Levetiracetam (Levetiracetam Iv 500 Mg/5 Ml Vial) 1,000 mg IVP Q12HR [facility] Last Admin: 04/15/24 20:01 Dose: 1,000 mg Magnesium Hydroxide (Magnesium Hydroxide 2,400 Mg/30 Ml Cup) 2,400 mg PO BID PRN PRN Reason: Constipation Last Admin: 04/15/24 19:47 Dose: 2,400 mg Methylprednisolone Sodium Succinate (Methylprednisolone Sod Succi 125 Mg/2 Ml Vial) 60 mg IV Q6HR [facility] Last Admin: 04/15/24 17:09 Dose: 60 mg Miscellaneous Information (Potassium Replacement Protocol 1 Each Misc) 1 each MISCELLANE DAILY PRN; Protocol PRN Reason: Per Protocol Morphine Sulfate (Morphine Sulfate 4 Mg/Ml Syringe) 4 mg IV Q4HR PRN PRN Reason: Severe Pain (Scale 7 to 10) Last Admin: 04/15/24 18:20 Dose: 4 mg Naloxone HCl (Naloxone 0.4 Mg/Ml 1 Ml Vial) 0.2 mg IV Q2M PRN PRN Reason: Opioid Reversal Ondansetron HCl (Ondansetron 4 Mg/2 Ml Vial) 4 mg IVP Q8HR PRN PRN Reason: Nausea And Vomiting Pantoprazole Sodium (Pantoprazole 40 Mg/10 Ml Vial) 40 mg IV DAILY [facility] Last Admin: 04/15/24 08:25 Dose: 40 mg Quetiapine Fumarate (Quetiapine 100 Mg Tab) 100 mg PO BID [facility] Last Admin: 04/15/24 19:50 Dose: 100 mg Sodium Bicarbonate (Sodium Bicarbonate Tab 650 Mg Tab) 650 mg PO BID [facility] Last Admin: 04/15/24 19:47 Dose: 650 mg On examination: VITAL SIGNS: 97.8, 75, 14, 139 x 70, 97% on 7 L GENERAL APPEARANCE: BMI 28.7, laying in bed, lethargic. Bruising and some weeping in both the arms. HEENT: Normal external appearance of nose and ear. Oral cavity normal EYES: Pupils equal. Conjunctiva normal. NECK: JVD unable to assess mass not palpable. RESPIRATORY: Respiratory effort increased. Depressed breath sounds. CARDIOVASCULAR: First and second sounds normal. No edema. ABDOMEN: Soft. Liver and spleen not palpable. No tenderness. No mass palpable. PSYCHIATRY: Lethargic. NEUROLOGICAL: Does sometimes, move his limbs about. INVESTIGATIONS, reviewed in the clinical context: April 15: White count 7.8 hemoglobin 10.4 platelets 100 sodium 140 potassium 3.9 BUN 28 creatinine 1.75 EEG [April 13] evidence of generalized cerebral dysfunction. Intermittent slightly higher amplitude sharply controlled waves and generalized distribution. April 14: White count 4.7 hemoglobin 10.7 platelets 41 potassium 5.3 BUN 21 creatinine 1.67 Carotid Doppler: No significant stenosis Chest CT [April 12] trace left right pleural effusion. Loculated appearance with largest pocket in the right apex. Scattered areas of atelectasis. Increased size of left lower lobe masslike consolidation 3.8 cm. Bilateral pulmonary nodules. Splenic flexure diverticulosis. Hepatic cirrhosis Chest x-ray film personally reviewed by me-[April 13] bilateral infiltrates April 13, 2024: White count 6.2 hemoglobin 8.5 platelets 95 sodium 138 potassium 3.7 BUN 21 creatinine 1.74 April 10: White count 13.9 hemoglobin 11.2 platelets 125 sodium 132 potassium 4.6 BUN 30 creatinine 2.46 Troponin I 0.306. Procalcitonin 0.61 TSH 3.7 Influenza type A, type B, RSV, COVID-19: Not detected Assessment: -Sepsis with fever and leukocytosis, bilateral multilobar pneumonia: Slow response IV Zosyn Pulmonary following -Acute hypoxic respiratory failure secondary to pneumonia: Slow to respond Currently on high flow oxygen-8 L -Septic shock-better Patient was on pressors. -Paroxysmal atrial fibrillation rapid ventricular rate. On p.o. amiodarone. IV heparin-discontinued. Started Eliquis -IV heparin monitoring-discontinued -Right and bilateral pulmonary nodules with abnormal PET scan with increased uptake in the left lower lung and mediastinal lymph node. Status post wedge resection of the left lower lung on 10/2023. 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 Neurology consulted -Possible seizures Keppra dose increased to 1000 mg twice daily -Multiple falls at half-way secondary to above -Chronic rheumatoid arthritis Pain control control as needed -Diabetes mellitus type II chronically requiring insulin, uncontrolled with hyperglycemia secondary to steroids Follow Accu-Cheks -Hypertension Blood pressure been running on the lower side. Both Tenormin and amlodipine have been held. -Hyperlipidemia Lipitor -Sigmoid diverticulosis, asymptomatic -Hepatic cirrhosis on CT scan -Chronic hard of hearing -Chronic PE Was on Eliquis outpatient -DNR Family meeting as listed above. Guarded prognosis. . Family is requesting [facility] hospice-for informational visit
[2024-04-16 05:35] LABS: Anisocytosis Slight; HCT 30.5 % (39.0-53.0); HGB 9.8 gm/dL (13.0-17.5); Hypochromasia Slight; MCH 33.4 pg (25.0-35.0); MCHC 32.3 g/dL (31.0-37.0); MCV 103.4 fL (80.0-100.0); Macrocytosis Moderate; Mean Platelet Volume 9.3; Poikilocytosis Slight; RBC 2.95 m/uL (4.30-5.90); RDW 16.9 % (11.5-15.5); WBC 4.7 k/uL (3.8-10.6)
[2024-04-16 05:53] LABS: African American GFR (CKD) 46 (>60 ml/min/1.73 sqM); Anion Gap 4 mmol/L; Blood Urea Nitrogen 40 mg/dL (9-20); Calcium 8.4 mg/dL (8.4-10.2); Carbon Dioxide 22 mmol/L (22-30); Chloride 112 mmol/L (98-107); Glucose 286 mg/dL (74-99); Non-African American GFR(CKD) 39 (>60 ml/min/1.73 sqM); Potassium 4.3 mmol/L (3.5-5.1); Sodium 138 mmol/L (137-145)
[2024-04-16 06:10] LABS: Glucose,Whole Blood 283 mg/dL (70-110)
[2024-04-16 06:26] LABS: Band Neutrophils % 2 %; Lymphocytes # (M) 0.09 k/uL (1.0-4.8); Monocytes # (M) 0.09 k/uL (0-1.0); Neutrophils % (M) 94 %; Nucleated Red Blood Cells 0 /100 WBC (0-0); Total Cells Counted 100
[2024-04-16 06:40] LABS: Platelet Count 79 k/uL (150-450)
--- NOTE | 2024-04-16 07:38 | XR ---
EXAMINATION TYPE: XR chest 1V portable DATE OF EXAM: 04/16/2024 COMPARISON: 04/15/2024 HISTORY: Abnormal x-ray TECHNIQUE: Single frontal view of the chest is obtained. FINDINGS: Bilateral airspace disease with pleural effusion. The heart is enlarged. Atherosclerotic ch hay aorta. Osseous structures demonstrate degenerative change of the spine. Upper mediastinum soft t issue prominence stable. IMPRESSION: Stable diffuse bilateral airspace disease with small pleural effusions. Unchanged promine nce of the upper mediastinum. [facility], , 04/16/2024 7:36 AM
[2024-04-16 11:12] LABS: Glucose,Whole Blood 290 mg/dL (70-110)
[2024-04-16 11:36] VITALS: BMI 30.7
[2024-04-16] MEDS: PSYLLIUM HUSK 100% 6 GM PACKET PO SCH (12:17)
--- NOTE | 2024-04-16 12:30 | P.PN ---
Subjective Progress Note Date: 04/15/24 Patient was seen for a follow-up. Patient continues to be severely encephalopathic. Patient is completely obtunded at this time. Patient is on Precedex 0.6 mcg/kg/h and Zosyn and amiodarone also running. Patient is constantly moving, tremoring very restless, however now at this time he is very obtunded. At present patient is severely encephalopathic, not speaking. No further seizure-like activity noted. Objective - Vital Signs Vital signs: Vital Signs Temp 97.8 F 04/15/24 12:00 Pulse 99 04/15/24 15:00 Resp 13 04/15/24 15:00 BP 160/84 04/15/24 15:00 Pulse Ox 97 04/15/24 15:00 FiO2 Intake & Output 04/14/24 04/15/24 04/15/24 18:59 06:59 18:59 Intake Total 9774.017 1741.614 1006.580 Output Total 335 375 390 Balance 0549.427 1037.614 616.580 Weight 91.4 kg 93.4 kg Intake: IV 950 1135 865 0.9 at KVO 50 110 90 Dextrose 5%-0.45% NaCl 1, 375 000 ml @ 75 mls/hr IV . [id number] [facility]ID Rx#:[id number] Piperacillin-Tazobactam 3 200 100 .375 gm In Sodium Chloride 0.9% 100 ml @ 25 mls/hr IVPB Q8H [facility] Rx#: [id number] Sodium Chloride 0.45% 1, 525 825 675 000 ml @ 75 mls/hr IV . [id number] [facility] Rx#:[id number] Intake, IV Titration 301.135 426.614 121.580 Amount Amiodarone 450 mg In 250 146.67 Dextrose 5% in Water 250 ml @ 0.5 MG/MIN 16.667 mls/hr IV .Q15H [facility] Rx#: [id number] Dexmedetomidine/0.9% NaCl 51.135 279.944 121.580 (Pmx) 400 mcg In Empty Bag 1 bag @ 0.2 MCG/KG/HR 4.545 mls/hr IV .Q22H1M [facility] Rx#:[id number] Tube Feeding 50 190 20 Other 60 90 Output: Urine 335 375 390 Other: Voiding Method Indwelling Catheter Indwelling Catheter Indwelling Catheter - Exam Patient is severely encephalopathic. Currently on Precedex 0.6 mcg/kg/h. Patient grimaces to painful stimuli. Pupils are equal, round and reacting, face is symmetric. Tone is equal. No obvious seizure-like activity. - Labs CBC & Chem 7: 04/16/24 05:27 04/16/24 05:27 Labs: Abnormal Lab Results - Last 24 Hours (Table) 04/14/24 04/14/24 04/14/24 Range/Units 10:55 12:29 12:29 RBC (4.30-5.90) m/uL Hgb (13.0-17.5) gm/dL Hct (39.0-53.0) % MCV (80.0-100.0) fL RDW (11.5-15.5) % Plt Count (150-450) k/uL Lymphocytes # (Manual) (1.0-4.8) k/uL Chloride (98-107) mmol/L BUN (9-20) mg/dL Creatinine (0.66-1.25) mg/dL Glucose (74-99) mg/dL POC Glucose (mg/dL) (70-110) mg/dL Total Protein (6.3-8.2) g/dL Albumin (3.5-5.0) g/dL Angiotensin Convert Enz 6 L (8-52) U/L CSF RBC 13 H (0-10) u/L CSF Glucose 155 H (40-70) mg/dL CSF Total Protein 111 H (12-60) mg/dL Cycl Citrul Peptide IgG 28.9 H (<=3.9) U/mL Cyclic Citrull Peptide Positive A (Negative) 04/14/24 04/14/24 04/15/24 Range/Units 16:29 20:28 06:01 RBC 3.05 L (4.30-5.90) m/uL Hgb 10.4 L (13.0-17.5) gm/dL Hct 31.4 L (39.0-53.0) % MCV 103.1 H (80.0-100.0) fL RDW 16.8 H (11.5-15.5) % Plt Count 100 L D (150-450) k/uL Lymphocytes # (Manual) 0.62 L (1.0-4.8) k/uL Chloride (98-107) mmol/L BUN (9-20) mg/dL Creatinine (0.66-1.25) mg/dL Glucose (74-99) mg/dL POC Glucose (mg/dL) 176 H 214 H (70-110) mg/dL Total Protein (6.3-8.2) g/dL Albumin (3.5-5.0) g/dL Angiotensin Convert Enz (8-52) U/L CSF RBC (0-10) u/L CSF Glucose (40-70) mg/dL CSF Total Protein (12-60) mg/dL Cycl Citrul Peptide IgG (<=3.9) U/mL Cyclic Citrull Peptide (Negative) 04/15/24 04/15/24 04/15/24 Range/Units 06:01 06:51 11:10 RBC (4.30-5.90) m/uL Hgb (13.0-17.5) gm/dL Hct (39.0-53.0) % MCV (80.0-100.0) fL RDW (11.5-15.5) % Plt Count (150-450) k/uL Lymphocytes # (Manual) (1.0-4.8) k/uL Chloride 108 H (98-107) mmol/L BUN 28 H (9-20) mg/dL Creatinine 1.75 H (0.66-1.25) mg/dL Glucose 172 H (74-99) mg/dL POC Glucose (mg/dL) 205 H 182 H (70-110) mg/dL Total Protein 5.4 L (6.3-8.2) g/dL Albumin 2.6 L (3.5-5.0) g/dL Angiotensin Convert Enz (8-52) U/L CSF RBC (0-10) u/L CSF Glucose (40-70) mg/dL CSF Total Protein (12-60) mg/dL Cycl Citrul Peptide IgG (<=3.9) U/mL Cyclic Citrull Peptide (Negative) Microbiology - Last 24 Hours (Table) 04/14/24 10:55 CSF Gram Stain - Preliminary Cerebral Spinal Fluid CSF Culture - Preliminary Assessment and Plan Assessment: * Status post recurrent falls, likely due to hypotension, which is likely related to polypharmacy versus sepsis. Patient was on multiple blood pressure medications (x 4). * Altered mental status, likely due to acute metabolic encephalopathy. Reasons multifactorial as below. * Agitation, aggression at times, likely due to acute delirium. * New onset seizure-like activity. Abnormal EEG. * Acute pulmonary edema, rule out pneumonia * Hypotension, rule out sepsis. Patient had high fever, last spike on 1 . * History of bilateral ICA stenosis. * Febrile illness * Acute on chronic renal insufficiency, improving * Thrombocytopenia * Macrocytic anemia * History of pulmonary embolism, on Eliquis. * History of empyema * Rheumatoid arthritis Plan: * Patient continues to be severely encephalopathic. * CT chest revealed small bilateral pleural effusions with loculated right apex effusion. Increased size of pleural nodularity in the right lung with increased size of the left lower lobe masslike consolidation. Most consistent with progression of disease. Superimposed infectious process is suggested with scattered region of streak-like opacities and secretions identified in the trachea and right mainstem bronchus concerning for aspiration. Cardiomegaly, hepatic cirrhosis, colonic diverticulosis. ID following, patient currently on Zosyn. Discussed with ID, we will consider lumbar puncture. Patient currently on IV heparin. Hold heparin overnight and we will consider lumbar puncture in the morning. * Repeat CT head performed 04/12/2024, which was normal. No acute ischemic process. * Treatment of various medical conditions as per IM and other specialties on b oard * Repeat prolonged EEG 04/14/2024 was abnormal due to background slowing, suggestive of severe encephalopathy. Continued presence of some higher amplitude periodic waves, which sometimes are sharply contoured. Although these does not appear epileptiform, but sometimes become rhythmic and regular. Follow-up EEG recommended if clinically indicated. * Initial 04/13/2024 EEG was abnormal due to background slowing of severe degree. This is suggestive of generalized cerebral dysfunction as can be seen with toxic metabolic encephalopathy or related to diffuse structural brain abnormality. Clinical correlation is recommended. Presence of intermittent slightly higher amplitude sharply contoured waves in generalized distribution. There was no phase reversal therefore uncertain if suggest underlying cortical irritability or some artifact. Suggest prolonged EEG for further evaluation. No electrographic seizure was recorded. * Increase dose of Keppra to 1000 mg twice daily. * Patient was on gabapentin 600 mg 3 times daily. * We will resume gabapentin, but at a lower dose of 300 mg twice daily, to prevent any withdrawals. Inform nurse to start giving Neurontin from today. (Has not received it yet) * Repeat prolonged EEG for 1 hour in the morning. * CSF WBC 0, RBC 13, glucose 155, proteins 111. Comprehensive viral panel negative. * B12 909, folate 19.60, TSH 3.73 * Rheumatoid factor 270, CCP 28.9 CHERYLE negative, ANCA antibodies negative, Bell antibodies, [employer]ER negative. BLAINE level negative. * Carotid Doppler revealed right 50 to 69% stenosis of the carotid bifurcation. Less than 50% stenosis of the carotid bifurcation on the left. Antegrade flow in both vertebral arteries * Eliquis currently on hold because patient not able to take by mouth. Therefore patient on IV heparin at this time. * Discussed with ICU staff in detail. Family considering hospice at this point.
--- NOTE | 2024-04-16 13:16 | P.PN ---
Subjective Progress Note Date: 04/16/24 79-year-old male with a history of diabetes, deafness, hyperlipidemia, hypertension, pulmonary embolism, rheumatoid arthritis, and multiple bilateral pulmonary nodules, secondary to rheumatoid arthritis. The patient resides at [facility], and apparently fell twice, and was brought into the [facility] department, to be evaluated. He is seen down in the emergency department, room 16. He is currently on 3 L nasal cannula. He is getting saline at 75 cc an hour. He has received 3 L of fluid bolus, and unfortunately his blood pressure continues to be low at 75/45. The patient is a bit lethargic and sleepy, not a particular good historian. He was not sure why he was in the emergency department. He is not even sure why he was at [facility]. Anyway, the patient is evaluated. The patient will need further monitoring and management, and will be admitted to the intensive care unit. He likely will need some norepinephrine, for his low blood pressure since he has not responded to fluids. In addition, we will have cardiology see him given the fact that there is some mild EKG changes, as well as an elevated troponin. He may be a patient with a non-ST segment elevation myocardial infarction. Current labs include a white count 13.9, hemoglobin 9.2, macro 34.2, and a platelet count of 125,000. Sodium 132, potassium 4.6, chlorides 106, CO2 22, BUN 30, creatinine 2.46. Troponin was 0.522. N-terminal proBNP was 1030. Albumin was 2.6. He tested negative for influenza, RSV, and coronavirus. Chest x-ray showed no acute cardiopulmonary disease. CT scan of the brain, cervical spine, and x-rays of the pelvis, are all negative. The patient was placed on cefepime by the primary service. A procalcitonin level is pending. On 04/12/2024, the patient remains encephalopathic and occasionally agitated. Earlier this morning, prior to my arrival, the patient was given Haldol 4 mg IV and morphine 4 mg IV and currently is quite lethargic and obtunded. He remains on 2 L of oxygen by nasal cannula with a pulse ox of 99%. The patient presented to us with episodes of fever and the exact source is not clear. The chest x-ray shows a new onset opacity in the right lateral lung field and based on that, a CAT scan of the chest will be ordered. Meanwhile, as mentioned earlier, the patient has areas of bilateral cavitating pulmonary infiltrates and has been investigated in the past via bronchoscopy that yielded no microbial growth or malignancy. 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 Fungal stains and the mycobacterial stains came back negative. There was numerous large caseating adenomas with acute on chronic inflammatory changes and this was thought to be related to an underlying connective tissue disease. The patient has been maintained on prednisone 10 mg p.o. daily on outpatient basis. On today's evaluation, the sodium levels at 140, bicarbonate 16 with a BUN of 25 and a creatinine of 1.9. Noted the patient presented to us with a creatinine of 2.4 he does not an underlying chronic kidney disease. The risk is at 6.8 with hemoglobin 8.4 and a platelet count of 77. The patient has fluctuating platelet counts over the past 1 year. He remains on IV cefepime. He is also on anticoagulation with Eliquis 2.5 mg p.o. twice a day. He is off pressors. The procalcitonin level was at 0.6. On 04/13/2024, patient is being seen for a follow-up. The patient remains lethargic, confused, nonresponsive. Sitter is at the bedside as the patient is occasionally getting agitated and for that reason the patient was started on Precedex and Precedex is running at 0.2 mcg/kg/h. Unable to communicate at this point in time as the patient is quite obtunded. In terms of his respiratory status, the patient remains on oxygen and currently is on 7 L of O2 nasal cannula with a pulse ox of 99%. The repeat chest x-ray from today is showing diffuse bilateral airspace disease with pleural effusions loculated along the right pleural border. CAT scan of the chest was also obtained yesterday and there are some new changes compared to the earlier chest x-ray and CAT scan findings. In summary, there is a loculated right apical pleural effusion along with loculated bilateral pleural effusion along the pleural borders more so on the right. There is increase in the size of the pleural nodularity in the right lung with increased in the size of the masslike consolidation in the left lung base. Possibility of a aspiration cannot be completely ruled out as the patient had some opacities and secretions within the trachea and right mainstem bronchus. There is also evidence of cardiomegaly, hepatic cirrhosis and diverticulosis. The patient is hemodynamically stable on no pressors. Overnight, the patient went into atrial fibrillation with rapid ventricular response. Started on amiodarone protocol which is running at 0.5 mg/min and the patient's rhythm is back to sinus. BUN is 21 with a creatinine of 1.7 and sodium levels of 138 and a potassium level of 3.7. White cell count is 6.2 with a hemoglobin of 8.5. In terms of the rheumatologic profile, the patient's rheumatoid factor came back elevated at 270. Antinuclear antibodies, anti-Bell antibodies, anti-[employer] antibodies came back negative. Awaiting the p-ANCA and c- ANCA titers. Based on his underlying aspiration that occurred yesterday, the patient will be switched to IV Zosyn. I am also going to start the patient on empiric treatment with systemic steroids and the patient was started on IV Solu- Medrol 60 mg every 6 hours. CAT scan of the brain was also done yesterday that showed no acute intracranial process and no nonspecific white matter changes. Doppler of the carotids completed yesterday showed 50 to 70% stenosis in the carotid bifurcation of the right otherwise negative. On today's evaluation of 04/14/2024, the patient remains clinically unchanged. Confused, obtunded and has obvious diminished level of consciousness along with episodes of agitation and based on that, the patient was kept on Precedex which is currently running at 0.3 mcg/kg/min. No focal neurological deficit. No seizure activity. EEG was done yesterday and repeat EEG was also done this morning. EEG is consistent with severe slowing suggestive of generalized cerebral dysfunction consistent with toxic metabolic encephalopathy. There is no evidence of any seizure activity. The patient remains afebrile. The patient remained hemodynamically stable. Triple-lumen catheter established yesterday for IV access and the patient remains on D5 half-normal saline at rate of 75 cc an hour. Urine output is adequate in the order of 30 cc to 50 cc an hour. Car diac rhythm remains sinus. The patient is currently off IV heparin and a lumbar puncture is to follow. The patient's also has a Dobbhoff catheter and vital AF was started at the rate of 10 cc an hour. On today's blood work, the white cell count is at 4.7 with a hemoglobin 10.7 and a platelet count of 41. BUN is 21 with a creatinine of 1.6 and a sodium levels at 138. Currently on IV Zosyn. Th e patient is also on IV Solu-Medrol 60 mg every 6 hours. The corrected to disease markers were all negative except for a positive rheumatoid factor. The p-ANCA and c-ANCA were negative. Rest of the SHONDA workup and CHERYLE was also negative. Chest x-ray remains abnormal with diffuse bilateral airspace disease and the patient remains on oxygen at 8 L/min nasal cannula. On 04/15/2024, the patient remains confused and delirious. The patient remains on oxygen 8 L minute nasal cannula. The patient remains on Precedex which is currently running at 0.9 mcg/kg/h and the patient is also requiring morphine to control his agitation. The patient remains on IV Solu-Medrol. The patient remains on IV Zosyn. In terms of his respiratory status, no interval worsening in oxygenation and the patient's chest x-ray from today shows stable bilateral pulmonary filtrates probably somewhat improved aeration compared to yesterday's chest x-ray. Meanwhile, the EEG showed diffuse slowing with toxic metabolic encephalopathy and cerebral dysfunction. No evidence of any seizure activity. The patient's white cell count remains at 7.8 with a hemoglobin of 10.4 and a platelet count of 100. BUN is 28 with a creatinine of 1.75 and a sodium levels at 140. The patient has a Dobbhoff and the patient is on Nepro running at 30 cc an hour. Cardiac rhythm is sinus. No focal neurological deficits. The lumbar puncture was completed and the patient has no nucleated cells. Cultures and cytology are still pending for now. The angiotensin-converting enzyme level was only at 6. 04/16/2024, seen the patient for a follow-up. Neurologically unchanged. Continues to have episodes of agitation and this is ongoing despite him being on Seroquel 100 mg p.o. twice a day. He remains on Precedex which is running at 0.5 mcg/kg/h. He remains on half-normal citrate of 75 cc an hour. Oxygen requirements have been fluctuating between 4 L and 8 L/min nasal cannula. He has a Dobbhoff catheter in place receiving Nepro for enteral feeding and nutritional support. Chest x-ray from today remains unchanged. The patient remains in normal sinus rhythm. Remains on IV Solu-Medrol. Remains on IV Zosyn. Labs from today shows a white cell count of 4.7, hemoglobin 9.8 and a platelet count of 79. BUN is 40 with a creatinine 1.6 and a sodium levels at 138. The viral cultures from the CSF including the bacterial cultures came back negative. Essentially clinically unchanged compared to yesterday. As mentioned, the rheumatologic profile is positive for rheumatoid factor and anti- CCP. Rest of the connective disease markers and vasculitic markers are negative. BLAINE level is low. Objective - Vital Signs Vital signs: Vital Signs Temp 97.7 F 04/16/24 12:00 Pulse 93 04/16/24 13:00 Resp 12 04/16/24 13:00 BP 160/82 04/16/24 13:00 Pulse Ox 98 04/16/24 13:00 FiO2 Intake & Output 04/15/24 04/16/24 04/16/24 18:59 06:59 18:59 Intake Total 4238.089 3140 1390.216 Output Total 640 825 560 Balance 5466.796 9838 830.216 Weight 97 kg 97 kg Intake: IV 1120 1120 695 0.9 at KVO 120 120 70 Piperacillin-Tazobactam 3 100 100 100 .375 gm In Sodium Chloride 0.9% 100 ml @ 25 mls/hr IVPB Q8H DAVID Rx#: [id number] Sodium Chloride 0.45% 1, 900 900 525 000 ml @ 75 mls/hr IV . [id number] DAVID Rx#:[id number] Intake, IV Titration 197.870 100 115.216 Amount Dexmedetomidine/0.9% NaCl 197.870 100 115.216 (Pmx) 400 mcg In Empty Bag 1 bag @ 0.2 MCG/KG/HR 4.545 mls/hr IV .Q22H1M DAVID Rx#:[id number] Tube Feeding 330 480 400 Other 90 150 180 Output: Urine 640 825 560 Other: Voiding Method Indwelling Catheter Indwelling Catheter Indwelling Catheter - Exam Patient has demonstrating diminished level of consciousness, currently on Precedex. Unable to communicate. Unable to follow commands. Quite sleepy and lethargic.. Occasional agitation was noted and the patient was placed on Precedex. And there is a sitter at the bedside. Currently, he is on 8 L of oxygen by nasal cannula. Dobbhoff catheter is also in place. The patient remains on Precedex. HEENT examination is grossly unremarkable. Mucous membranes are moist. No oral lesions. Neck supple. Full range of motion. No adenopathy thyromegaly or neck vein distention. The patient has a short neck with crowding of the posterior pharynx Cardiovascular examination reveals regular rhythm rate. S1-S2 normal. No S3 or S4. No discernible murmur noted. Lungs reveal clear breath sounds. Breath sounds are equal bilaterally. No adventitious lung sounds including wheezes rhonchi or crackles. Abdomen soft bowel sounds are heard. No masses or tenderness. Extremities are intact. No cyanosis clubbing or edema. Skin is without rash or lesion. Neurologic examination is brief but nonfocal. Pupils are equal reactive to light. No focal neurological deficits. No cranial nerve deficits. No facial asymmetry. Unable to do a motor and sensory evaluation. Gait cannot be evaluated. The patient is sedated currently on Precedex. - Labs CBC & Chem 7: 04/16/24 05:27 04/16/24 05:27 Labs: Abnormal Lab Results - Last 24 Hours (Table) 04/15/24 04/15/24 04/16/24 Range/Units 17:03 19:41 05:27 RBC 2.95 L (4.30-5.90) m/uL Hgb 9.8 L (13.0-17.5) gm/dL Hct 30.5 L (39.0-53.0) % MCV 103.4 H (80.0-100.0) fL RDW 16.9 H (11.5-15.5) % Plt Count 79 L (150-450) k/uL Lymphocytes # (Manual) 0.09 L (1.0-4.8) k/uL Chloride (98-107) mmol/L BUN (9-20) mg/dL Creatinine (0.66-1.25) mg/dL Glucose (74-99) mg/dL POC Glucose (mg/dL) 239 H 241 H (70-110) mg/dL 04/16/24 04/16/24 04/16/24 Range/Units 05:27 06:07 11:10 RBC (4.30-5.90) m/uL Hgb (13.0-17.5) gm/dL Hct (39.0-53.0) % MCV (80.0-100.0) fL RDW (11.5-15.5) % Plt Count (150-450) k/uL Lymphocytes # (Manual) (1.0-4.8) k/uL Chloride 112 H (98-107) mmol/L BUN 40 H (9-20) mg/dL Creatinine 1.62 H (0.66-1.25) mg/dL Glucose 286 H (74-99) mg/dL POC Glucose (mg/dL) 283 H 290 H (70-110) mg/dL Microbiology - Last 24 Hours (Table) 04/14/24 10:55 CSF Gram Stain - Preliminary Cerebral Spinal Fluid CSF Culture - Preliminary 04/10/24 12:33 Blood Culture - Final Blood 04/14/24 10:55 Acid Fast Bacilli Smear - Preliminary Cerebral Spinal Fluid Assessment and Plan Plan: Acute febrile illness with development of a new opacity along the right lateral chest wall. Rule out pneumonia with developing effusion. Rule out underlying connective tissue disease/vasculitis with interval progression of his disease as the patient has caseating glaucomatous changes along with cavitary pulmonary infiltrates as noted on previous CAT scan and PET scan imaging and a wedge biopsy of the lung has confirmed the findings. Noted to follow-up CAT scan of the chest showed interval progression of the loculated pleural effusion and there is a loculated pocket in the right apex in addition to loculation along the right lateral chest border and some on the left in addition to pleural nodularity and consolidation of left lung base. Superimposed aspiration pneumonia cannot be completely excluded. The chest x-ray from today showed diffuse bilateral airspace disease. The patient is currently on 8 L of oxygen by nasal cannula. Noted the patient has not spiked any further temperature since admission. , The patient is currently normotensive. Repeat chest x-ray from today is unchanged and the patient's respite status is unchanged and oxygen requirements remain unchanged. Status post fall Hypotension, recovered Encephalopathy, currently under investigation the CAT scan of the brain is negative, currently on Precedex to control agitation. The mental status remains impaired and the patient remains unresponsive, unable to communicate, and EEG showed diffuse encephalopathy without any seizure activity. The patient is showing occasional agitation and the patient is currently on Precedex and also using morphine to control agitation. Patient was started on Seroquel yesterday. Seems to be having occasional episodes of agitation. EEG showing severe encephalopathy with diffuse slowing. No evidence of any seizure activity. CSF was showing elevated protein without any other abnormalities. The viral culture was negative. Bacterial cultures was negative. Abnormal troponins, rule out non-ST segment elevation myocardial infarction, versus occult infection/sepsis, essentially a type II ischemia Chronic kidney disease stage III, creatinine is improving as the patient acute component of kidney injury on top of chronic kidney failure, renal function is improved and the creatinine is down to 1.6 Anion gap metabolic acidosis, recovered History of hypertension. History of hyperlipidemia. History of diabetes mellitus. History of pulmonary embolism, the patient is maintained on anticoagulation with Eliquis 2.5 mg p.o. twice a day. Thrombocytopenia, improving and the patient is currently off IV heparin History of rheumatoid arthritis., Elevated rheumatoid factor Multiple bilateral pulmonary nodules, consistent with rheumatoid pulmonary nodules. The patient has caseating granulomas based on a previous wedge biopsy of the lung. The microbial and the fungal and AFB cultures are all negative. Bacterial cultures are also negative. The rest of the connective tissue disease workup yielded positive rheumatoid factor, otherwise negative p-ANCA, c-ANCA, CHERYLE, SHONDA screen. History of diverticular disease. Paroxysmal atrial fibrillation with rapid ventricular response, currently back into normal sinus rhythm on amiodarone. Plan: Continue D5 half-normal saline at rate of 75 cc an hour Blood work for rheumatoid factor, CHERYLE, SHONDA screen, was completed and the patient was positive for rheumatoid factor Negative p-ANCA and awaiting c-ANCA Check a BLAINE level was checked and the level is only at 6 CAT scan of the chest, without contrast was noted and there is suspicion for superimposed aspiration Continue IV antibiotics and the patient will be switched to IV Zosyn Continue empiric steroids 60 mg IV Solu-Medrol every 6 hours Check gamma interferon assay, results are still pending for now patient is on oral amiodarone, cardiac rhythm remains sinus Patient is currently on anticoagulation with Eliquis Monitor platelet count Lumbar puncture was done and the patient has no significant white cells within the CSF. Cultures are negative and cytology still pending EEG is consistent with encephalopathy Dobbhoff catheter has been inserted and the patient receiving enteral feeding for nutritional support Monitor renal function, renal function is improving Aspiration precautions Continue Seroquel 100 mg p.o. twice a day and will gradually wean off the Precedex Laxatives for facilitation of bowel movements, milk of mag DNR/DNI CODE STATUS Will continue to follow condition is critical and will continue to make further recommendations based on his progress. This evaluation was done more than 30 minutes. Time with Patient: Greater than 30
--- NOTE | 2024-04-16 13:43 | P.PN ---
Subjective patient is seen for follow-up for acute kidney injury. Patient remains confused. Poor oral intake. Renal function has improved with creatinine now staying around 1.6-1.7 mg/dL. Urine output at 50-30 mL per hour. Maintained on half normal saline at 70 mL an hour. Family is considering hospice care. Objective - Vital Signs Vital signs: Vital Signs Temp 97.7 F 04/16/24 12:00 Pulse 93 04/16/24 13:00 Resp 12 04/16/24 13:00 BP 160/82 04/16/24 13:00 Pulse Ox 98 04/16/24 13:00 FiO2 Intake & Output 04/15/24 04/16/24 04/16/24 18:59 06:59 18:59 Intake Total 6074.982 4395 1429.040 Output Total 640 825 560 Balance 6258.804 3254 869.040 Weight 97 kg 97 kg Intake: IV 1120 1120 695 0.9 at KVO 120 120 70 Piperacillin-Tazobactam 3 100 100 100 .375 gm In Sodium Chloride 0.9% 100 ml @ 25 mls/hr IVPB Q8H DAVID Rx#: [id number] Sodium Chloride 0.45% 1, 900 900 525 000 ml @ 75 mls/hr IV . [id number] DAVID Rx#:[id number] Intake, IV Titration 197.870 100 154.040 Amount Dexmedetomidine/0.9% NaCl 197.870 100 154.040 (Pmx) 400 mcg In Empty Bag 1 bag @ 0.2 MCG/KG/HR 4.545 mls/hr IV .Q22H1M DAVID Rx#:[id number] Tube Feeding 330 480 400 Other 90 150 180 Output: Urine 640 825 560 Other: Voiding Method Indwelling Catheter Indwelling Catheter Indwelling Catheter - Exam patient is comfortable. Does not communicate much. examination of the heart S1 and S2 Examination of the lungs bilateral breath sounds are heard Abdomen is soft Examination of lower extremities shows no significant edema - Labs CBC & Chem 7: 04/16/24 05:27 04/16/24 05:27 Labs: Abnormal Lab Results - Last 24 Hours (Table) 04/15/24 04/15/24 04/16/24 Range/Units 17:03 19:41 05:27 RBC 2.95 L (4.30-5.90) m/uL Hgb 9.8 L (13.0-17.5) gm/dL Hct 30.5 L (39.0-53.0) % MCV 103.4 H (80.0-100.0) fL RDW 16.9 H (11.5-15.5) % Plt Count 79 L (150-450) k/uL Lymphocytes # (Manual) 0.09 L (1.0-4.8) k/uL Chloride (98-107) mmol/L BUN (9-20) mg/dL Creatinine (0.66-1.25) mg/dL Glucose (74-99) mg/dL POC Glucose (mg/dL) 239 H 241 H (70-110) mg/dL 04/16/24 04/16/24 04/16/24 Range/Units 05:27 06:07 11:10 RBC (4.30-5.90) m/uL Hgb (13.0-17.5) gm/dL Hct (39.0-53.0) % MCV (80.0-100.0) fL RDW (11.5-15.5) % Plt Count (150-450) k/uL Lymphocytes # (Manual) (1.0-4.8) k/uL Chloride 112 H (98-107) mmol/L BUN 40 H (9-20) mg/dL Creatinine 1.62 H (0.66-1.25) mg/dL Glucose 286 H (74-99) mg/dL POC Glucose (mg/dL) 283 H 290 H (70-110) mg/dL Microbiology - Last 24 Hours (Table) 04/14/24 10:55 CSF Gram Stain - Preliminary Cerebral Spinal Fluid CSF Culture - Preliminary 04/10/24 12:33 Blood Culture - Final Blood 04/14/24 10:55 Acid Fast Bacilli Smear - Preliminary Cerebral Spinal Fluid Assessment and Plan Assessment: 1. CHAITANYA due to ATN from hypotension/shock. Presented creatinine 2.4 and 1.6 -1.7 now. UA shows hyaline casts 1+ protein. Maintained on IV fluids 2. Hypotension rule out sepsis 3. CKD Stage 3a. Baseline creatinine 1.2-1.4 mg/dL. Etiology is diabetic kidney disease 4. Mild hyponatremia with sodium 138-Improved 5. Fall 6. HTN with CKD 7. Type 2 Diabetes 8. Metabolic acidosis non-gap secondary to acute kidney injury, status post IV bicarb 9. 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 Plan: continue half normal saline continue oral sodium bicarb Repeat labs in a.m. Continue with antibiotics
--- NOTE | 2024-04-16 15:00 | P.PN ---
Subjective Progress Note Date: 04/16/24 Principal diagnosis: Reason for follow-up is aspiration pneumonia and a question of encephalitis Patient is a 79-year-old male with a past medical history significant for diabetes mellitus hypertension hyperlipidemia PE rheumatoid arthritis patient presenting to the hospital for evaluation of multiple falls and weakness patient did have a fever with a CT of the chest did shows evidence of left lower lobe consolidation and secretion in the trachea concerning for aspiration. On today's evaluation that is 04/16/2024,the patient continues to be afebrile patient is hemodynamically stable not requiring any pressor support patient is currently on 8 L nasal oxygen, mentation remains to be an issue at the patient remains to be lethargic unable to provide any history no vomiting or diarrhea reported by the nursing staff. Patient white count is 4.7, creatinine is 1.62 Objective - Vital Signs Vital signs: Vital Signs Temp 97.7 F 04/16/24 12:00 Pulse 93 04/16/24 13:00 Resp 12 04/16/24 13:00 BP 160/82 04/16/24 13:00 Pulse Ox 98 04/16/24 13:00 FiO2 Intake & Output 04/15/24 04/16/24 04/16/24 18:59 06:59 18:59 Intake Total 7241.169 1371 1390.216 Output Total 640 825 560 Balance 5021.506 5347 830.216 Weight 97 kg 97 kg Intake: IV 1120 1120 695 0.9 at KVO 120 120 70 Piperacillin-Tazobactam 3 100 100 100 .375 gm In Sodium Chloride 0.9% 100 ml @ 25 mls/hr IVPB Q8H DAVID Rx#: [id number] Sodium Chloride 0.45% 1, 900 900 525 000 ml @ 75 mls/hr IV . [id number] DAVID Rx#:[id number] Intake, IV Titration 197.870 100 115.216 Amount Dexmedetomidine/0.9% NaCl 197.870 100 115.216 (Pmx) 400 mcg In Empty Bag 1 bag @ 0.2 MCG/KG/HR 4.545 mls/hr IV .Q22H1M DAVID Rx#:[id number] Tube Feeding 330 480 400 Other 90 150 180 Output: Urine 640 825 560 Other: Voiding Method Indwelling Catheter Indwelling Catheter Indwelling Catheter - Exam GENERAL DESCRIPTION: An elderly male lying in bed in no distress RESPIRATORY SYSTEM: Unlabored breathing , decreased breath sounds at bases HEART: S1 S2 regular rate and rhythm , ABDOMEN: Soft , no tenderness EXTREMITIES: Swelling to the leg but no redness - Labs CBC & Chem 7: 04/16/24 05:27 04/16/24 05:27 Labs: Abnormal Lab Results - Last 24 Hours (Table) 04/15/24 04/15/24 04/16/24 Range/Units 17:03 19:41 05:27 RBC 2.95 L (4.30-5.90) m/uL Hgb 9.8 L (13.0-17.5) gm/dL Hct 30.5 L (39.0-53.0) % MCV 103.4 H (80.0-100.0) fL RDW 16.9 H (11.5-15.5) % Plt Count 79 L (150-450) k/uL Lymphocytes # (Manual) 0.09 L (1.0-4.8) k/uL Chloride (98-107) mmol/L BUN (9-20) mg/dL Creatinine (0.66-1.25) mg/dL Glucose (74-99) mg/dL POC Glucose (mg/dL) 239 H 241 H (70-110) mg/dL 04/16/24 04/16/24 04/16/24 Range/Units 05:27 06:07 11:10 RBC (4.30-5.90) m/uL Hgb (13.0-17.5) gm/dL Hct (39.0-53.0) % MCV (80.0-100.0) fL RDW (11.5-15.5) % Plt Count (150-450) k/uL Lymphocytes # (Manual) (1.0-4.8) k/uL Chloride 112 H (98-107) mmol/L BUN 40 H (9-20) mg/dL Creatinine 1.62 H (0.66-1.25) mg/dL Glucose 286 H (74-99) mg/dL POC Glucose (mg/dL) 283 H 290 H (70-110) mg/dL Microbiology - Last 24 Hours (Table) 04/14/24 10:55 CSF Gram Stain - Preliminary Cerebral Spinal Fluid CSF Culture - Preliminary 04/10/24 12:33 Blood Culture - Final Blood 04/14/24 10:55 Acid Fast Bacilli Smear - Preliminary Cerebral Spinal Fluid Assessment and Plan (1) Aspiration pneumonia Current Visit: Yes Status: Acute Code(s): J69.0 - PNEUMONITIS DUE TO INHALATION OF FOOD AND VOMIT SNOMED Code(s): 434313921 (2) Sepsis Current Visit: No Status: Acute Code(s): A41.9 - SEPSIS, UNSPECIFIED ORGANISM SNOMED Code(s): 82337524 Plan: 1patient with initially presented to the hospital with sepsis in this patient who did have fever elevated white count tachycardia meeting criteria for SIRS also likely right lower lobe pneumonia and likely of aspiration etiology, however the patient significant mental status changes not entirely excluded by aspiration pneumonia and will need to rule out underlying central etiology such as encephalitis 2-patient did have resolution of his fever white count is normal patient to Zosyn to cover for aspiration pneumonia, try to obtain a sputum 3patient did have LP completed on 04/14/2024 no WBC protein mildly elevated not suggestive of encephalitis 4patient is currently on Zosyn for possibility of aspiration pneumonia possible plan is for hospice in that case antibiotics can be safely discontinued Dictation was produced using [employer] dictation software. please excuse any grammatical, word or spelling errors. Time with Patient: Less than 30
--- NOTE | 2024-04-16 16:21 | P.DS ---
Providers Date of admission: 04/10/24 06:34 Expected date of discharge: 04/16/24 Attending physician: Aries Vincent Consults: 04/10/24 06:35 Consult Physician Routine Consulting Provider: Faizan Segura Consult Reason/Comments: CKD Do you want consulting provider notified?: Yes 04/10/24 07:57 Consult Physician Urgent Consulting Provider: Pernell Bell Consult Reason/Comments: respiratory distress Do you want consulting provider notified?: Already Contacted 04/11/24 08:59 Consult Physician Routine Consulting Provider: Karl Escamilla Consult Reason/Comments: AMS, delerium Do you want consulting provider notified?: Yes 04/12/24 08:03 Consult Physician Routine Consulting Provider: William Rosario Consult Reason/Comments: confused. AMS Do you want consulting provider notified?: Yes 04/13/24 12:26 Consult Physician Routine Consulting Provider: Gerard Singh Consult Reason/Comments: infection Do you want consulting provider notified?: Yes Primary care physician: [facility] Course: This is a pleasant 79 years old male who was transferred from [facility] for multiple falls in 24 hours. Patient currently cannot provide information it was obtained from staff, records and at bedside As per he was recently discharged from [facility] about 1 week earlier for CHF, acute kidney injury and pneumonia. These are per patient. On admission patient was found to be hypotensive, blood pressure 109/61 went down to 63/41, currently 85/40 Patient currently cannot provide information and he is nonverbal. at [facility] There is very small pressure ulcers in the lower back. No tachypnea, abdomen looks soft. Urine catheter was placed in the hospital with clear urine. No evidence of suprapubic tenderness. No other rash. He has small abrasion on the right arm. Pupils are equal and reactive to light. Neck looks supple. No leg edema. On admission he had low-grade fever of 100.5 Labs reviewed he has leukocytosis of 13.9, hemoglobin 11.2, low platelet count 125, creatinine 2.4 with baseline 1.3-1.6 Liver enzymes, INR were unremarkable Influenza A and type B, RSV, SARS (coronavirus) are and detected Urinalysis showed glucosuria but no ketonuria Elevated troponin but is chronically elevated proBNP is slightly elevated 1030 CT of the head and neck is negative for acute process in either Pelvic x-ray is negative for acute process or fracture or dislocation EKG shows sinus rhythm at [address]-T changes Patient was received 3 L in the emergency room and started on normal sinus 75 mL /h also on ceftriaxone. design eng 18 was called and patient was transferred to the ICU and he was started on Levophed On review of the records: Previous CT of the chest showing scattered cavitary lesions and pulmonary nodules with left lower lung suspected mass. He s/p bronchoscopy on 10/04/2023 was negative cytology for malignant cells. Also patient had PET scan on 10/23/23 showing new uptake in the right pleural costophrenic angle and new punctate area within mediastinum with right peribronchial lymph nodes and multiple stable pulmonary nodules and nonspecific changes posterior to the coccyx and left pubic ramus could be infection, injury versus metastasis. Status post wedge resection of the left lung on 10/2023 Patient is more awake today, sitting in bed, trying to eat his breakfast, at bedside Look patient looks pleasant, slightly agitated and anxious, he follows command. He looks calm and relaxed. He denies significant tachypnea however he still has mild heavy breathing with no cough or chest pain Abdomen soft with no symptoms Valiente catheter in place Levophed was off since the night before Getting IV fluid normal saline at 75 mL/h 85. WBC normal 9.2, hemoglobin slightly low at 9.8. Creatinine slightly lower at 2.3. It was 2.4 yesterday Creatinine slightly low, has thrombocytopenia at 85 And remains on cefepime. Pro- Calcitonin was elevated 0.61 04/12 Patient today remains in the ICU, his mentation got worse, he is not answering questions, not following commands, staff does not feel safe to give him pills orally. He has restraints and work environment safety inspector at bedside Yesterday morning he was more awake sitting up in bed. He is on Eliquis added by heat treating operator. CT of the brain on admission was negative for acute process. Will going to consult neurology service for this purpose. His infection is improving with his leukocytosis is down, fever stopped WBC 6.8, hemoglobin 9.4, platelet count 77, creatinine trending down 2.4 down to 1.9, with baseline 1.3-1.6. Blood pressure on the low side, fever subsided. Blood culture still pending Currently on ceftriaxone and normal saline. April 13: ICU. Patient vomited overnight. Aspirated. Has been in and out of A-fib with rapid ventricular rate. Drips include IV amiodarone, Precedex, and bicarbonate. Patient on 7 L high flow. Intermittently agitated. Patient's arms are bruising and some weeping. Patient lethargic. Not able to communicate. Chest x-ray shows bilateral infiltrates April 14: ICU. Patient remains on IV Zosyn. Delirious. Based on EEG findings patient started on Keppra. Patient's family at the bedside. On 8 L nasal cannula. Lumbar puncture pending results pending. Spoke at length with patient's family at the bedside. Discussed prognosis guarded. Patient had multiple medical issues for a long time. Will see how patient progresses clinically. They did express that they do not want the patient to suffer. ID is also following the case. NG tube feeding has been started. Chest x-ray shows bilateral diffuse airway disease April 15: ICU. Patient was agitated requiring Seroquel and. Also on Precedex 0.7 mics. Tube feeding through NG tube at 30 cc an hour. Sinus rhythm. No bowel movement. Good urine output. Dose of Keppra was increased to 1000 mg twice daily per neurology based on EEG results. On oxygen 8 L. IV Zosyn. Had a lengthy family meeting at the bedside. Include patient's daughter and . Advance care planning [April 15, 2024] Went through patient's each medical condition line by line. And the treatment. They understand patient rather delirious. His quality of life is affected. They did not want the patient to be in pain. We did lean towards the option of hospice. They do not want the patient to at the hospital and I did explain that is something we cannot determine. Option of patient to taking home if not doing too well and letting him there also was discussed. It was finally decided to continue with the current treatment plan. Get a informational visit from hospice. Including [facility] and outpatient. Several questions answered. Time spent for ACP about 30 minutes April 16: ICU. Patient remains on Precedex. 0.5 mcg. Telemetry shows sinus rhythm. Good urine output. No bowel movement. Tube feedings with NG tube at 60 cc an hour. Did I got a phone from the nurse that patient's family decided to proceed with comfort measures. I spoke to patient's on the phone. She confirmed that all family members would like to proceed with comfort measures. Under hospice care/[facility]. I did communicate with the hospice team. And the nurse. And the social media executive. Patient getting admitted to [facility]. Symptom control. Discussion and discharge planning more than 35 minutes On examination: VITAL SIGNS: 97.7, 115, 16, 130 x 77, 98% on 8 L GENERAL APPEARANCE: BMI 28.7, laying in bed, lethargic. Bruising and some weeping in both the arms. HEENT: Normal external appearance of nose and ear. Oral cavity normal EYES: Pupils equal. Conjunctiva normal. NECK: JVD unable to assess mass not palpable. RESPIRATORY: Respiratory effort increased. Depressed breath sounds. CARDIOVASCULAR: First and second sounds normal. No edema. ABDOMEN: Soft. Liver and spleen not palpable. No tenderness. No mass palpable. PSYCHIATRY: Lethargic. NEUROLOGICAL: Does sometimes, move his limbs about. INVESTIGATIONS, reviewed in the clinical context: April 16: White count 4.7 hemoglobin 9.8 potassium 4.3 creatinine 1.62 April 15: White count 7.8 hemoglobin 10.4 platelets 100 sodium 140 potassium 3.9 BUN 28 creatinine 1.75 EEG [April 13] evidence of generalized cerebral dysfunction. Intermittent slightly higher amplitude sharply controlled waves and generalized distribution. April 14: White count 4.7 hemoglobin 10.7 platelets 41 potassium 5.3 BUN 21 creatinine 1.67 Carotid Doppler: No significant stenosis Chest CT [April 12] trace left right pleural effusion. Loculated appearance with largest pocket in the right apex. Scattered areas of atelectasis. Increased size of left lower lobe masslike consolidation 3.8 cm. Bilateral pulmonary nodules. Splenic flexure diverticulosis. Hepatic cirrhosis Chest x-ray film personally reviewed by me-[April 13] bilateral infiltrates April 13, 2024: White count 6.2 hemoglobin 8.5 platelets 95 sodium 138 potassium 3.7 BUN 21 creatinine 1.74 April 10: White count 13.9 hemoglobin 11.2 platelets 125 sodium 132 potassium 4.6 BUN 30 creatinine 2.46 Troponin I 0.306. Procalcitonin 0.61 TSH 3.7 Influenza type A, type B, RSV, COVID-19: Not detected Assessment: -Sepsis with fever and leukocytosis, bilateral multilobar pneumonia: Slow response IV Zosyn Pulmonary following -Acute hypoxic respiratory failure secondary to pneumonia: Slow to respond Currently on high flow oxygen-8 L -Septic shock-better Patient was on pressors. -Paroxysmal atrial fibrillation rapid ventricular rate. On p.o. amiodarone. IV heparin-discontinued. Started Eliquis -IV heparin monitoring-discontinued -Right and bilateral pulmonary nodules with abnormal PET scan with increased uptake in the left lower lung and mediastinal lymph node. Status post wedge resection of the left lower lung on 10/2023. 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 Neurology consulted -Possible seizures Keppra dose increased to 1000 mg twice daily -Multiple falls at snf secondary to above -Chronic rheumatoid arthritis Pain control control as needed -Diabetes mellitus type II chronically requiring insulin, uncontrolled with hyperglycemia secondary to steroids Follow Accu-Cheks -Hypertension Blood pressure been running on the lower side. Both Tenormin and amlodipine have been held. -Hyperlipidemia Lipitor -Sigmoid diverticulosis, asymptomatic -Hepatic cirrhosis on CT scan -Chronic hard of hearing -Chronic PE Was on Eliquis outpatient -DNR Disposition: Admit to [facility] for inpatient hospice Plan - Discharge Summary New Discharge Prescriptions: No Action Gabapentin 600 mg PO TID #9 tab Apixaban [Eliquis] 5 mg PO BID #60 tab Insulin Lispro [humaLOG Kwikpen] 15 unit SQ TID-W/MEALS atenoloL [Tenormin] 25 mg PO BID Tamsulosin [Flomax] 0.4 mg PO DAILY lisinopriL 30 mg PO DAILY Furosemide [Lasix] 40 mg PO DAILY Sennosides [Senokot] 8.6 mg PO BID Pantoprazole [Protonix] 40 mg PO BID SILVER sulfADIAZINE Cream [Silvadene 1% Cream] 1 applic TOPICAL MOWEFR Multivitamins, Thera [Multivitamin (formulary)] 1 tab PO DAILY Memantine [Namenda] 5 mg PO DAILY amLODIPine [Norvasc] 5 mg PO DAILY Ipratropium-Albuterol Nebulize [Duoneb 0.5 mg-3 mg/3 ml Soln] 3 ml INHALATION RT-Q6H PRN PRN Reason: Shortness Of Breath Or Wheezing Empagliflozin [Jardiance] 25 mg PO DAILY Cholecalciferol [Vitamin D3 (25 Mcg = 1000 Iu)] 25 mcg PO DAILY Atorvastatin [Lipitor] 80 mg PO HS Insulin Degludec [Tresiba Flextouch U-100 Pen] 35 units SQ DAILY predniSONE 10 mg PO DAILY Ubidecarenone [Coenzyme Q10] 100 mg PO DAILY Calcium Carbonate/Vitamin D3 [Calcium 600 mg-Vit D3 10 mcg (400 Unit)] 1 tab PO DAILY Discharge Medication List Cholecalciferol [Vitamin D3 (25 Mcg = 1000 Iu)] 25 mcg PO DAILY 02/01/22 [History] Empagliflozin [Jardiance] 25 mg PO DAILY 02/01/22 [History] Gabapentin 600 mg PO TID #9 tab 07/25/22 [Rx] Apixaban [Eliquis] 5 mg PO BID #60 tab 07/30/22 [Rx] Atorvastatin [Lipitor] 80 mg PO HS 09/09/23 [History] Insulin Degludec [Tresiba Flextouch U-100 Pen] 35 units SQ DAILY 09/09/23 [History] Insulin Lispro [humaLOG Kwikpen] 15 unit SQ TID-W/MEALS 09/09/23 [History] Tamsulosin [Flomax] 0.4 mg PO DAILY 09/30/23 [History] atenoloL [Tenormin] 25 mg PO BID 09/30/23 [History] lisinopriL 30 mg PO DAILY 09/30/23 [History] Furosemide [Lasix] 40 mg PO DAILY 12/24/23 [History] Calcium Carbonate/Vitamin D3 [Calcium 600 mg-Vit D3 10 mcg (400 Unit)] 1 tab PO DAILY 04/10/24 [History] Ipratropium-Albuterol Nebulize [Duoneb 0.5 mg-3 mg/3 ml Soln] 3 ml INHALATION RT-Q6H PRN 04/10/24 [History] Memantine [Namenda] 5 mg PO DAILY 04/10/24 [History] Multivitamins, Thera [Multivitamin (formulary)] 1 tab PO DAILY 04/10/24 [His tory] Pantoprazole [Protonix] 40 mg PO BID 04/10/24 [History] SILVER sulfADIAZINE Cream [Silvadene 1% Cream] 1 applic TOPICAL MOWEFR 04/10/24 [History] Sennosides [Senokot] 8.6 mg PO BID 04/10/24 [History] Ubidecarenone [Coenzyme Q10] 100 mg PO DAILY 04/10/24 [History] amLODIPine [Norvasc] 5 mg PO DAILY 04/10/24 [History] predniSONE 10 mg PO DAILY 04/10/24 [History] Follow up Appointment(s)/Referral(s): Karl Pike DO [Primary Care Provider] - 1-2 days
[2024-04-16 16:29] VITALS: TEMP 97.8
[2024-04-16 19:04] VITALS: BP 178/107; PULSE 141; RESP 38
--- NOTE | 2024-04-16 21:38 | EEG ---
ELECTROENCEPHALOGRAM REPORT PREAMBLE: This is an 79-year-old male with altered mental status. EEG FINDINGS: This is a 21-channel digital EEG recorded with video component, utilizing 10/20 international system with referential and bipolar montages. This is a prolonged EEG study performed for 1 hour. The recording start time is 9:38 a.m. on 04/16/2024 and recording end time is 10:39 a.m. on 04/16/2024. The recording starts and continues with presence of severely suppressed, very slow, 1 to 2 hertz low-amplitude delta slowing in bihemispheric region. Background is not responsive to any activation like manual eye opening or closing or photic stimulation. EKG artifact was seen in the temporal region. Different stages of sleep were not seen. No focal or generalized epileptiform activity was seen. IMPRESSION: This is an abnormal EEG due to background slowing and suppression of severe degree. This is suggestive of generalized cerebral dysfunction as can be seen with very severe toxic metabolic encephalopathy or related to diffuse structural brain abnormality. Clinical correlation is recommended. No focal or generalized epileptiform activity was seen. When compared to the EEG from 04/14/2024, the background has become remarkably worse; however, no epileptiform activity was seen on the current study. MMODL / IJN: [id number] /
--- NOTE | 2024-04-17 12:20 | P.PN ---
Subjective Progress Note Date: 04/16/24 Patient was seen for a follow-up. Patient continues to be severely encephalopathic. Patient is completely obtunded at this time. No seizure-like activity noticed. Patient's family have decided hospice. Objective - Vital Signs Vital signs: Vital Signs Temp 97.8 F 04/16/24 16:00 Pulse 100 04/16/24 16:00 Resp 10 L 04/16/24 16:00 BP 120/62 04/16/24 16:00 Pulse Ox 97 04/16/24 16:00 FiO2 Intake & Output 04/15/24 04/16/24 04/16/24 18:59 06:59 18:59 Intake Total 6033.940 5294 1907.637 Output Total 640 825 785 Balance 4690.777 6863 1122.637 Weight 97 kg 97 kg Intake: IV 1120 1120 950 0.9 at KVO 120 120 100 Piperacillin-Tazobactam 3 100 100 100 .375 gm In Sodium Chloride 0.9% 100 ml @ 25 mls/hr IVPB Q8H DAVID Rx#: [id number] Sodium Chloride 0.45% 1, 900 900 750 000 ml @ 75 mls/hr IV . [id number] DAVID Rx#:[id number] Intake, IV Titration 197.870 100 167.637 Amount Dexmedetomidine/0.9% NaCl 197.870 100 167.637 (Pmx) 400 mcg In Empty Bag 1 bag @ 0.2 MCG/KG/HR 4.545 mls/hr IV .Q22H1M DAVID Rx#:[id number] Tube Feeding 330 480 580 Other 90 150 210 Output: Urine 640 825 785 Other: Voiding Method Indwelling Catheter Indwelling Catheter Indwelling Catheter - Exam Patient is severely encephalopathic. Detailed testing deferred. No obvious seizure-like activity noted. - Labs CBC & Chem 7: 04/16/24 05:27 04/16/24 05:27 Labs: Abnormal Lab Results - Last 24 Hours (Table) 04/15/24 04/15/24 04/16/24 Range/Units 17:03 19:41 05:27 RBC 2.95 L (4.30-5.90) m/uL Hgb 9.8 L (13.0-17.5) gm/dL Hct 30.5 L (39.0-53.0) % MCV 103.4 H (80.0-100.0) fL RDW 16.9 H (11.5-15.5) % Plt Count 79 L (150-450) k/uL Lymphocytes # (Manual) 0.09 L (1.0-4.8) k/uL Chloride (98-107) mmol/L BUN (9-20) mg/dL Creatinine (0.66-1.25) mg/dL Glucose (74-99) mg/dL POC Glucose (mg/dL) 239 H 241 H (70-110) mg/dL 04/16/24 04/16/24 04/16/24 Range/Units 05:27 06:07 11:10 RBC (4.30-5.90) m/uL Hgb (13.0-17.5) gm/dL Hct (39.0-53.0) % MCV (80.0-100.0) fL RDW (11.5-15.5) % Plt Count (150-450) k/uL Lymphocytes # (Manual) (1.0-4.8) k/uL Chloride 112 H (98-107) mmol/L BUN 40 H (9-20) mg/dL Creatinine 1.62 H (0.66-1.25) mg/dL Glucose 286 H (74-99) mg/dL POC Glucose (mg/dL) 283 H 290 H (70-110) mg/dL Microbiology - Last 24 Hours (Table) 04/14/24 10:55 CSF Gram Stain - Preliminary Cerebral Spinal Fluid CSF Culture - Preliminary 04/10/24 12:33 Blood Culture - Final Blood 04/14/24 10:55 Acid Fast Bacilli Smear - Preliminary Cerebral Spinal Fluid Assessment and Plan Assessment: * Status post recurrent falls, likely due to hypotension, which is likely related to polypharmacy versus sepsis. Patient was on multiple blood pressure medications (x 4). * Altered mental status, likely due to acute metabolic encephalopathy, much worse on current EEG. Reasons multifactorial as below. * Agitation, aggression at times, likely due to acute delirium. * New onset seizure-like activity. Abnormal EEG. * Acute pulmonary edema, rule out pneumonia * Hypotension, rule out sepsis. Patient had high fever, last spike on 04/12/2024. * History of bilateral ICA stenosis. * Febrile illness * Acute on chronic renal insufficiency, improving * Thrombocytopenia * Macrocytic anemia * History of pulmonary embolism, on Eliquis. * History of empyema * Rheumatoid arthritis Plan: * Patient continues to be severely encephalopathic. * Repeat prolonged EEG 04/16/2024: Was abnormal due to background slowing and suppression, of severe degree. This is suggestive of generalized cerebral dysfunction as can be seen with toxic metabolic encephalopathy or related to diffuse structural brain abnormality. When compared to the EEG from 04/14/2024, the background has become markedly suppressed and slow. No epileptiform activity was seen. No electrographic seizure was recorded. * CT chest revealed small bilateral pleural effusions with loculated right apex effusion. Increased size of pleural nodularity in the right lung with increased size of the left lower lobe masslike consolidation. Most consistent with progression of disease. Superimposed infectious process is suggested w ith scattered region of streak-like opacities and secretions identified in the trachea and right mainstem bronchus concerning for aspiration. Cardiomegaly, hepatic cirrhosis, colonic diverticulosis. ID following, patient currently on Zosyn. Discussed with ID, we will consider lumbar puncture. Patient currently on IV heparin. Hold heparin overnight and we will consider lumbar puncture in the morning. * Repeat CT head performed 04/12/2024, which was normal. No acute ischemic process. * Treatment of various medical conditions as per IM and other specialties on board * Repeat prolonged EEG 04/14/2024 was abnormal due to background slowing, sug gestive of severe encephalopathy. Continued presence of some higher amplitude periodic waves, which sometimes are sharply contoured. Although these does not appear epileptiform, but sometimes become rhythmic and regular. Follow-up EEG recommended if clinically indicated. * Initial 04/13/2024 EEG was abnormal due to background slowing of severe degree. This is suggestive of generalized cerebral dysfunction as can be seen with toxic metabolic encephalopathy or related to diffuse structural brain abnormality. Clinical correlation is recommended. Presence of intermittent slightly higher amplitude sharply contoured waves in generalized distribution. There was no phase reversal therefore uncertain if suggest underlying cortical irritability or some artifact. Suggest prolonged EEG for further evaluation. No electrographic seizure was recorded. * Increase dose of Keppra to 1000 mg twice daily. * Patient was on gabapentin 600 mg 3 times daily. * We will resume gabapentin, but at a lower dose of 300 mg twice daily, to prevent any withdrawals. Patient is on gabapentin. * CSF WBC 0, RBC 13, glucose 155, proteins 111. Comprehensive viral panel negative. * B12 909, folate 19.60, TSH 3.73 * Rheumatoid factor 270, CCP 28.9 CHERYLE negative, ANCA antibodies negative, Bell antibodies, [employer] negative. BLAINE level negative. * Carotid Doppler revealed right 50 to 69% stenosis of the carotid bifurcation. Less than 50% stenosis of the carotid bifurcation on the left. Antegrade flow in both vertebral arteries * Eliquis currently on hold because patient not able to take by mouth. Therefore patient on IV heparin at this time. * I discussed with patient's family members, reviewed the results of the EEG them. Family have made patient hospice, which appears reasonable. * Neurology will sign off.
--- NOTE | 2024-04-29 14:17 | CDI ---
Documentation Clarification Form Date: 04/29/2024 01:39:22 PM From: Deloris Dobbins Phone: Admit Date: 04/10/2024 06:34:00 AM Patient Name: Guero Fernandez Visit Number: [id number] Discharge Date: 04/16/2024 07:17:00 PM ATTENTION: The Clinical Documentation Specialists (CDI) and [facility] Coding Staff appreciate your assistance in clarifying documentation. Please respond to the clarification below the line at the bottom and electronically sign. The CDI & [facility] Coding staff will review the response and follow-up if needed. Please note: Queries are made part of the Legal Health Record. If you have any questions, please contact the author of this message via ITS. Doctor/Provider: Aries Vincent Your patient has CHF per ED Note. Additional information regarding the type of CHF is requested. History/Risk Factors: 89yo M, Sepsis, falldue tohypotension, chronic elevated troponin,AKIonCKD IIIA, RBBB, chronic PE, Infrarenal aortic aneurysm, PADwith left renal artery stenosis, anemiawiththrombocytopenia, RAwithrheumaticlung disease, IDDMII, HTN, HLD, obesity, former smoker Clinical Indicators: VS/Pulse OX: 95-98 BNP: 1030 EchocardiogramOct2023 showed preserved LV systolic functionwith nosignificant regional wall motion normality or any major valvularabnormality. In-House 04/10 Echo: LVEF 55 to 60%, Moderate concentric LVH, No obviousregional wall motionabnormality, Mild LAdilatation, No significantvalvedysfunction, Nopericardial effusion Chest x ray: 04/10 Moderate loculated rightpleural effusion. The pulmonary vasculature appearscongestedconsistent withpulmonary edema. There isnopneumothorax. The osseous structures are grossly intact 04/13: Bilateral airspace disease withpleural effusion. Theheart is enlarged. Atheroscleroticchange aorta. Osseous structures demonstrate degenerative change of the spine. Treatment: Willdiscontinuethe bicarbinfusionand put the patient on D5 half- normal saline at rate of 75 cc an hour In your professional opinion, can you please clarify the type of CHF if known? [ ] Chronic Systolic Heart Failure (reduced EF) [ ] Chronic Diastolic Heart Failure (preserved EF) [ ] Chronic Systolic & Diastolic Heart Failure [ ] Other, please specify [ + ] Unable to determine (Template Last Revised: July 2020) MTDD
[2024-05-04 09:37] LABS: Immunofixation, Serum Interp IgG Kappa
== END 2024-04-16 19:17 | disposition hospice, inpatient (51) | DRG 871 ==
LOC: EC 04:42 → 3SCARD 06:34 → 2SICU 08:46
PROVIDERS: ADMIT Hospitalist; ATTEND Hospitalist
PROC: 009U3ZX Drainage of Spinal Canal, Percutaneous Approach, Diagnostic (ICD-10-PCS; principal; 2024-04-14)
PROC: 06HM33Z Insertion of Infusion Device into Right Femoral Vein, Percutaneous Approach (ICD-10-PCS; 2024-04-14)
PROC: 3E033XZ Introduction of Vasopressor into Peripheral Vein, Percutaneous Approach (ICD-10-PCS; 2024-04-14)
DX: A41.89 Other specified sepsis (principal); G92.8 Other toxic encephalopathy; N17.0 Acute kidney failure with tubular necrosis; R65.21 Severe sepsis with septic shock; J96.01 Acute respiratory failure with hypoxia; J69.0 Pneumonitis due to inhalation of food and vomit; I13.0 Hypertensive heart and chronic kidney disease with heart failure and stage 1 through stage 4 chronic kidney disease, or unspecified chronic kidney disease; E87.1 Hypo-osmolality and hyponatremia; I27.82 Chronic pulmonary embolism; F05 Delirium due to known physiological condition; E87.20 Acidosis, unspecified; Z66 Do not resuscitate; Z51.5 Encounter for palliative care; M05.10 Rheumatoid lung disease with rheumatoid arthritis of unspecified site; L89.109 Pressure ulcer of unspecified part of back, unspecified stage; G93.89 Other specified disorders of brain; Z78.1 Physical restraint status; D69.6 Thrombocytopenia, unspecified; K74.60 Unspecified cirrhosis of liver; E11.65 Type 2 diabetes mellitus with hyperglycemia; N18.31 Chronic kidney disease, stage 3a; E11.22 Type 2 diabetes mellitus with diabetic chronic kidney disease; I48.0 Paroxysmal atrial fibrillation; I70.1 Atherosclerosis of renal artery; I65.23 Occlusion and stenosis of bilateral carotid arteries; I71.43 Infrarenal abdominal aortic aneurysm, without rupture; D53.9 Nutritional anemia, unspecified; E66.9 Obesity, unspecified; T38.0X5A Adverse effect of glucocorticoids and synthetic analogues, initial encounter; Z79.4 Long term (current) use of insulin; S40.811A Abrasion of right upper arm, initial encounter; H91.90 Unspecified hearing loss, unspecified ear; E78.5 Hyperlipidemia, unspecified; K57.30 Diverticulosis of large intestine without perforation or abscess without bleeding; I95.2 Hypotension due to drugs; T46.5X5A Adverse effect of other antihypertensive drugs, initial encounter; I45.10 Unspecified right bundle-branch block; D36.7 Benign neoplasm of other specified sites; R29.6 Repeated falls; R79.89 Other specified abnormal findings of blood chemistry; R56.9 Unspecified convulsions; W01.0XXA Fall on same level from slipping, tripping and stumbling without subsequent striking against object, initial encounter; Y92.009 Unspecified place in unspecified non-institutional (private) residence as the place of occurrence of the external cause; Z79.52 Long term (current) use of systemic steroids; Z90.2 Acquired absence of lung [part of]; Z87.891 Personal history of nicotine dependence; Z79.84 Long term (current) use of oral hypoglycemic drugs; Z79.899 Other long term (current) drug therapy; Z79.01 Long term (current) use of anticoagulants; Z91.81 History of falling; Z11.52 Encounter for screening for COVID-19; Z88.8 Allergy status to other drugs, medicaments and biological substances; I50.9 Heart failure, unspecified
CPT/HCPCS: 36415; 51702; 70450; 71045; 71250; 72125; 72170; 80048; 80053; 81001; 82164; 82232; 82550; 82607; 82746; 82945; 83036; 83605; 83735; 83880; 84100; 84145; 84157; 84443; 84484; 85025; 85027; 85610; 85652; 85730; 86038; 86160; 86200; 86235; 86255; 86334; 86335; 86431; 86480; 86706; 86788; 86789; 86803; 87040; 87070; 87102; 87116; 87205; 87206; 87340; 87496; 87498; 87529; 87636; 87798; 89050; 93005; 93306; 93880; 95812; 95816; 95819; 96361; 96365; 96375; 99291

== ENCOUNTER 2024-04-16 19:01 | Inpatient (IN) | payer MEDICAID, OTHER ==
[2024-04-16] MEDS ORDERED: ONDANSETRON 4 MG/2 ML VIAL IVP PRN (19:34)
[2024-04-16] MEDS ORDERED: ACETAMINOPHEN TAB 325 MG TAB PO PRN (19:34)
[2024-04-16] MEDS ORDERED: HALOPERIDOL LACTATE 5 MG/ML 1 ML VIAL IM PRN (19:34)
[2024-04-16] MEDS ORDERED: ATROPINE OPHTH SOLN 1% 5ML BTL SUBLINGUAL PRN (19:34)
[2024-04-16] MEDS ORDERED: LORazepam 2 MG/ML INJ IV PRN (19:34)
[2024-04-16] MEDS ORDERED: haloperidoL 1 MG TAB PO PRN (19:34)
[2024-04-16] MEDS: MORPHINE SULFATE (100 MG/2 ML) 100 MG in SODIUM CHLORIDE 0.9% 100 ML IV SCH (20:04)
[2024-04-16] MEDS: SODIUM CHLORIDE 0.9% 1,000 ML IV SCH (20:04)
[2024-04-17 03:05] VITALS: BP 78/37; PULSE 65; TEMP 98.8
--- NOTE | 2024-04-21 20:46 | P.DS ---
Providers Date of admission: 04/16/24 19:20 Expected date of discharge: 04/17/24 Attending physician: Aries Vincent [place] care [place]: [facility] [place] Course: Patient was admitted to [facility]. Comfort set was used. Patient . Cause of : Diabetes mellitus type 2. Plan - Discharge Summary Discharge Rx Participant: No New Discharge Prescriptions: No Action Gabapentin 600 mg PO TID #9 tab Apixaban [Eliquis] 5 mg PO BID #60 tab Insulin Lispro [humaLOG Kwikpen] 15 unit SQ TID-W/MEALS atenoloL [Tenormin] 25 mg PO BID Tamsulosin [Flomax] 0.4 mg PO DAILY lisinopriL 30 mg PO DAILY Furosemide [Lasix] 40 mg PO DAILY Sennosides [Senokot] 8.6 mg PO BID Pantoprazole [Protonix] 40 mg PO BID SILVER sulfADIAZINE Cream [Silvadene 1% Cream] 1 applic TOPICAL MOWEFR Multivitamins, Thera [Multivitamin (formulary)] 1 tab PO DAILY Memantine [Namenda] 5 mg PO DAILY amLODIPine [Norvasc] 5 mg PO DAILY Ipratropium-Albuterol Nebulize [Duoneb 0.5 mg-3 mg/3 ml Soln] 3 ml INHALATION RT-Q6H PRN PRN Reason: Shortness Of Breath Or Wheezing Empagliflozin [Jardiance] 25 mg PO DAILY Cholecalciferol [Vitamin D3 (25 Mcg = 1000 Iu)] 25 mcg PO DAILY Atorvastatin [Lipitor] 80 mg PO HS Insulin Degludec [Tresiba Flextouch U-100 Pen] 35 units SQ DAILY predniSONE 10 mg PO DAILY Ubidecarenone [Coenzyme Q10] 100 mg PO DAILY Calcium Carbonate/Vitamin D3 [Calcium 600 mg-Vit D3 10 mcg (400 Unit)] 1 tab PO DAILY Discharge Medication List Cholecalciferol [Vitamin D3 (25 Mcg = 1000 Iu)] 25 mcg PO DAILY 02/01/22 [History] Empagliflozin [Jardiance] 25 mg PO DAILY 02/01/22 [History] Gabapentin 600 mg PO TID #9 tab 07/25/22 [Rx] Apixaban [Eliquis] 5 mg PO BID #60 tab 07/30/22 [Rx] Atorvastatin [Lipitor] 80 mg PO HS 09/09/23 [History] Insulin Degludec [Tresiba Flextouch U-100 Pen] 35 units SQ DAILY 09/09/23 [History] Insulin Lispro [humaLOG Kwikpen] 15 unit SQ TID-W/MEALS 09/09/23 [History] Tamsulosin [Flomax] 0.4 mg PO DAILY 09/30/23 [History] atenoloL [Tenormin] 25 mg PO BID 09/30/23 [History] lisinopriL 30 mg PO DAILY 09/30/23 [History] Furosemide [Lasix] 40 mg PO DAILY 12/24/23 [History] Calcium Carbonate/Vitamin D3 [Calcium 600 mg-Vit D3 10 mcg (400 Unit)] 1 tab PO DAILY 04/10/24 [History] Ipratropium-Albuterol Nebulize [Duoneb 0.5 mg-3 mg/3 ml Soln] 3 ml INHALATION RT-Q6H PRN 04/10/24 [History] Memantine [Namenda] 5 mg PO DAILY 04/10/24 [History] Multivitamins, Thera [Multivitamin (formulary)] 1 tab PO DAILY 04/10/24 [History] Pantoprazole [Protonix] 40 mg PO BID 04/10/24 [History] SILVER sulfADIAZINE Cream [Silvadene 1% Cream] 1 applic TOPICAL MOWEFR 04/10/24 [History] Sennosides [Senokot] 8.6 mg PO BID 04/10/24 [History] Ubidecarenone [Coenzyme Q10] 100 mg PO DAILY 04/10/24 [History] amLODIPine [Norvasc] 5 mg PO DAILY 04/10/24 [History] predniSONE 10 mg PO DAILY 04/10/24 [History] Discharge Disposition: - Preliminary Cause of Preliminary Cause of : Diabetes type 2
== END 2024-04-17 05:30 | disposition expired | DRG 951 ==
LOC: 2SICU 19:20 → 4SSUR 21:39
PROVIDERS: ADMIT Hospitalist; ATTEND Hospitalist
DX: Z51.5 Encounter for palliative care (principal); E11.9 Type 2 diabetes mellitus without complications; R91.8 Other nonspecific abnormal finding of lung field; M06.9 Rheumatoid arthritis, unspecified; Z66 Do not resuscitate; R29.6 Repeated falls; Z87.891 Personal history of nicotine dependence; Z79.4 Long term (current) use of insulin; Z79.84 Long term (current) use of oral hypoglycemic drugs; Z79.52 Long term (current) use of systemic steroids